=== PATIENT | male | born 1935 | race Caucasian/White ===

== ENCOUNTER 2018-04-15 19:37 | Inpatient (IN) | payer OTHER ==
[~2018-04-15] VITALS: Ht 172.7 cm; Wt 79.2 kg
[~2018-04-15 19:37] MED LIST: ASPI-232 PO; ATOR-24 PO; CALC1CRE2 EX; CLBCRM30 EXT; DOXA4TAB2 PO; FINA5TAB PO; FLUO10CA48 PO; FLUT110A INH; LOSA100T33 PO; MULT-221 PO; PLN/10 PO; RANI150T85 PO; SYN137 PO; [UNRECOGNIZED DRUG - CODE] EX
[2018-04-15] MEDS ORDERED: OPTIRAY 320 IV PRN (20:00)
[2018-04-15] MEDS ORDERED: ASPI325T39 PO (20:06)
[2018-04-15] MEDS ORDERED: HYZ/10015 PO (20:06)
[2018-04-15] MEDS ORDERED: FLVHFA110 INH (20:06)
[2018-04-15] MEDS ORDERED: METO25TA4 PO (20:06)
[2018-04-15] MEDS ORDERED: SODIUM CHLORIDE 0.9% 500ML 500 ML IV STA (20:09)
--- NOTE | 2018-04-15 20:10 | EMERGENCY ROOM VISIT NOTE ---
History Report prepared by Alexey: Kurt Brown Under the Supervision of: Dr. Esvin Ny D.O. First contact with patient: 19:46 Chief Complaint: CHEST PAIN Stated Complaint: CHEST PAIN AND SPITTING UP BLOOD History of Present Illness The patient is a 82 year old male who presents to the Emergency Room with complaints of constant chest pain radiating to the right abdomen and back. The patient rates his current symptoms as 7/10 in severity. He also states that he has been spitting up blood. The patient reports that the pain is worsened with deep breaths. He denies nausea, vomiting, or pain and swelling of the legs. He states that he has some chills. The patient reports a previous pulmonary embolism. He states that he had surgery for appendicitis and still has his gallbladder. He denies being on blood thinners aside from aspirin. Source of History: patient Position: chest Symptom Intensity: 7/10 Timing: constant Modifying Factors (Worsening): breathing Associated Symptoms: + chills, No nausea, No vomiting Note: denies pain or swelling in legs Review of Systems See HPI for pertinent positives & negatives. A total of 10 systems reviewed and were otherwise negative. 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 (8) Pulmonary embolism (9) Toxic diffuse goiter Surgical Problems: (1) History of ankle surgery (2) History of appendectomy Family History Cancer Heart disease Hypertension Social History Smoking Status: Never Smoker Current/Historical Medications Scheduled Aspirin (Aspirin Ec), 325 MG PO QPM Atorvastatin (Lipitor), 40 MG PO DAILY Doxazosin Mesylate (Cardura), 4 MG PO QPM Felodipine (Felodipine ER), 1 TAB PO DAILY Finasteride (Proscar), 5 MG PO QPM Fluoxetine (Prozac), 10 MG PO DAILY Fluticasone Propionate (Flovent Hfa), 2 PUFFS INH BID Hctz/Losartan (Hyzaar 25MG/100MG), 1 TAB PO DAILY Levothyroxine Sodium (Levothyroxine Sodium), 1 TAB PO DAILY Metoprolol Succinate (Toprol Xl), 25 MG PO QPM Ranitidine (Zantac), 150 MG PO QPM Allergies Coded Allergies: SIDNEY Inhibitors (Verified Allergy, Unknown, COUGH, 02/20/15) Physical Exam Vital Signs Date Time Temp Pulse Resp B/P (MAP) Pulse Ox O2 Delivery O2 Flow Rate FiO2 04/15/18 22:01 111/68 04/15/18 21:36 99 04/15/18 21:31 136/69 04/15/18 21:29 Nasal Cannula 3.0 04/15/18 21:06 88 25 93 04/15/18 21:01 89 Room Air 04/15/18 21:01 87 24 144/81 93 Nasal Cannula 2.0 04/15/18 21:01 Nasal Cannula 2.0 04/15/18 20:52 88 25 90 04/15/18 20:37 90 22 92 04/15/18 20:31 147/68 04/15/18 20:07 86 27 92 04/15/18 20:01 132/64 04/15/18 19:54 99 04/15/18 19:52 99 23 92 04/15/18 19:50 140/66 04/15/18 19:42 36.9 87 20 151/56 93 Room Air Physical Exam GENERAL: Patient is awake, alert, and in no acute distress. Patient is resting comfortably and showing no signs of anxiety EYES: The conjunctivae are clear. The pupils are round and reactive. EARS, NOSE, MOUTH AND THROAT: The nose is without any evidence of any deformity. Mucous membranes are moist. Tongue is midline NECK: The neck is nontender and supple. RESPIRATORY: Splinting respirations noted. Lung sounds diminished in the right lung field. CARDIOVASCULAR: Regular rate and rhythm noted. There no murmurs rubs or gallops normal S1 normal S2 GASTROINTESTINAL: The abdomen is soft. Bowel sounds are present in all quadrants. Abdomen is nontender. MUSCULOSKELETAL/EXTREMITIES: There is no evidence of gross deformity. Full range of motion is noted in the hips and shoulders. SKIN: There is no obvious evidence of any rash. There are no petechiae, pallor or cyanosis noted. NEUROLOGIC: Patient is awake alert and oriented x3. Medical Decision & Procedures ER Provider Diagnostic Interpretation: Radiology results as stated below per my review and radiologist interpretation: (CHEST FOR PE) ANGIO WITH CT DOSE: 412.38 mGy.cm HISTORY: Chest pain dyspnea TECHNIQUE: Multiaxial CT images of the chest were performed following the intravenous administration of contrast to evaluate the pulmonary arteries. Maximal intensity projection images were also obtained. A dose lowering technique was utilized adhering to the principles of ALARA. COMPARISON STUDY: None. FINDINGS: Limited is a technically due to respiratory and somatic motion. No evidence for major central or first order embolus. There are vessels. The lung bases are not well seen. Mild atelectatic change thoracic aorta. Bibasilar parenchymal infiltrative change. Small right effusion. IMPRESSION: 1. Technically limited exam due to patient somatic and respiratory motion. 2. No evidence for a major central or first order embolus. 3. Nondiagnostic evaluation of the third order vessels of the lung bases. 4. Bibasilar infiltrative change combined with a small right effusion. The above report was generated using voice recognition software. It may contain grammatical, syntax or spelling errors. Electronically signed by: Kaden Florian M.D. 04/15/2018 8:25 PM Dictated Date/Time: 04/15/2018 8:22 PM Laboratory Results 04/15/18 19:55 Red Blood Count 3.93, Mean Corpuscular Volume 89.6, Mean Corpuscular Hemoglobin 30.0, Mean Corpuscular Hemoglobin Concent 33.5, Mean Platelet Volume 10.4, Neutrophils (%) (Auto) 70.7, Lymphocytes (%) (Auto) 13.0, Monocytes (%) (Auto) 12.7, Eosinophils (%) (Auto) 2.8, Basophils (%) (Auto) 0.2, Neutrophils # (Auto ) 7.17, Lymphocytes # (Auto) 1.32, Monocytes # (Auto) 1.29, Eosinophils # (Auto ) 0.28, Basophils # (Auto) 0.02 04/15/18 19:55 Test 04/15/18 19:55 04/15/18 20:06 04/15/18 21:39 White Blood Count 10.14 K/uL (4.8-10.8) Red Blood Count 3.93 M/uL (4.7-6.1) Hemoglobin 11.8 g/dL (14.0-18.0) Hematocrit 35.2 % (42-52) Mean Corpuscular Volume 89.6 fL (80-100) Mean Corpuscular Hemoglobin 30.0 pg (25-34) Mean Corpuscular Hemoglobin Concent 33.5 g/dl (32-36) Platelet Count 157 K/uL (130-400) Mean Platelet Volume 10.4 fL (7.4-10.4) Neutrophils (%) (Auto) 70.7 % Lymphocytes (%) (Auto) 13.0 % Monocytes (%) (Auto) 12.7 % Eosinophils (%) (Auto) 2.8 % Basophils (%) (Auto) 0.2 % Neutrophils # (Auto) 7.17 K/uL (1.4-6.5) Lymphocytes # (Auto) 1.32 K/uL (1.2-3.4) Monocytes # (Auto) 1.29 K/uL (0.11-0.59) Eosinophils # (Auto) 0.28 K/uL (0-0.5) Basophils # (Auto) 0.02 K/uL (0-0.2) RDW Standard Deviation 43.1 fL (36.4-46.3) RDW Coefficient of Variation 13.1 % (11.5-14.5) Immature Granulocyte % (Auto) 0.6 % Immature Granulocyte # (Auto) 0.06 K/uL (0.00-0.02) Prothrombin Time 10.7 SECONDS (9.0-12.0) Prothromb Time International Ratio 1.0 (0.9-1.1) Activated Partial Thromboplast Time 28.6 SECONDS (21.0-31.0) Partial Thromboplastin Ratio 1.1 Est Creatinine Clear Calc Drug Dose 26.1 ml/min Estimated GFR () 32.8 Estimated GFR (Non- 28.3 BUN/Creatinine Ratio 23.2 (10-20) Calcium Level 8.2 mg/dl (8.5-10.1) Magnesium Level 2.0 mg/dl (1.8-2.4) Total Bilirubin 0.6 mg/dl (0.2-1) Aspartate Amino Transf (AST/SGOT) 26 U/L (15-37) Alanine Aminotransferase (ALT/SGPT) 17 U/L (12-78) Alkaline Phosphatase 84 U/L (45-117) Troponin I < 0.015 ng/ml (0-0.045) Total Protein 8.2 gm/dl (6.4-8.2) Albumin 3.1 gm/dl (3.4-5.0) Globulin 5.1 gm/dl (2.5-4.0) Albumin/Globulin Ratio 0.6 (0.9-2) Lipase 319 U/L (73-393) Bedside Hemoglobin 11.2 g/dl (14.0-18.0) Bedside Hematocrit 33 % (42-52) Bedside Sodium 139 mEq/L (135-144) Bedside Potassium 3.9 mEq/L (3.3-5.0) Bedside Chloride 105 mEq/L (101-112) Bedside Total CO2 21 mEq/l (24-31) Anion Gap 18.0 mmol/L (16-25) Bedside Blood Urea Nitrogen 41 mg/dl (7-18) Bedside Creatinine 2.2 mg/dl (0.6-1.3) Bedside Glucose (other) 110 mg/dl (70-99) Bedside Ionized Calcium (Aaron) 1.11 mmol/l (1.12-1.32) Venous Blood pH 7.36 (7.36-7.41) Venous Blood Partial Pressure CO2 33 mmHg (38.0-50.0) Venous Blood Partial Pressure O2 47 mmHg Venous Blood HCO3 18 mmol/L Venous Blood Oxygen Saturation 80.0 % Venous Blood Base Excess -6.3 mEq/L Laboratory results per my review. Medications Administered Medications (Trade) Dose Ordered Sig/Fatou Route Start Time Stop Time Status Last Admin Dose Admin Sodium Chloride 500 ml @ 999 mls/hr Q31M STAT IV 04/15/18 20:09 04/15/18 20:39 DC 04/15/18 20:09 999 MLS/HR Sodium Chloride 1,000 ml @ 999 mls/hr Q1H1M STAT IV 04/15/18 20:41 04/15/18 21:41 DC 04/15/18 21:03 999 MLS/HR Morphine Sulfate (MoRPHine SULFATE INJ) 4 mg Q15M PRN IV 04/15/18 21:30 04/15/18 21:46 DC 04/15/18 21:22 4 MG Ondansetron HCl (Zofran Inj) 4 mg NOW STAT IV 04/15/18 21:16 04/15/18 21:17 DC 04/15/18 21:24 4 MG Piperacillin Sod/ Tazobactam Sod (Zosyn Iv) 4.5 gm NOW STAT IV 04/15/18 21:16 04/15/18 21:17 DC 04/15/18 21:27 4.5 GM Hydromorphone HCl (Dilaudid Inj) 0.5 mg Q3H PRN IV 04/15/18 21:45 04/29/18 21:44 04/15/18 23:44 0.5 MG Methylprednisolone Sodium Succinate (Solu-Medrol IV) 40 mg ONE STAT IV 04/15/18 21:46 04/15/18 21:47 DC 04/15/18 21:53 40 MG Lidocaine (Lidoderm Patch 5%) 1 patch ONE STAT TD 04/15/18 22:00 04/15/18 22:01 DC 04/15/18 22:39 1 PATCH Morphine Sulfate (MoRPHine SULFATE INJ) 4 mg STK-MED ONCE .ROUTE 04/15/18 21:50 04/15/18 21:51 DC 04/15/18 21:53 4 MG Ipratropium Prospect (Atrovent 0.02% 0.5MG/2.5ML Neb) 0.5 mg NOW STAT INH 04/15/18 22:00 04/15/18 22:01 DC 04/15/18 22:10 0.5 MG Levalbuterol (Xopenex 1.25MG/ 0.5ML Neb) 1.25 mg NOW STAT INH 04/15/18 22:00 04/15/18 22:01 DC 04/15/18 22:10 1.25 MG ECG Per My Interpretation Indication: chest pain Rate (beats per minute): 104 Rhythm: sinus tachycardia Findings: PVC, ST depression (Anterior and lateral) Comparison ECG Date: 08/07/2005 Change: increased rate, otherwise no change ED Course 1950: The patient was evaluated in room C10. A complete history and physical examination were performed. 2008: Ordered Sodium Chloride 500 ml @ 999 mls/hr IV 2040: Ordered Sodium Chloride 1000 ml @ 999 mls/hr IV 2114: I updated with the patient on his test results. 2115: Ordered Zosyn 4.5 gm IV, Zofran 4 mg IV 2129: Ordered Morphine Sulfate 4 mg IV 2130: I spoke with Dr. Binu Ventura Hospitalist. He will reevaluate the patient for hospitalization. Medical Decision Differential diagnosis: Etiologies such as cardiac ischemia, aortic dissection, pulmonary embolism, pneumonia, pneumothorax, musculoskeletal, infections, pericarditis, myocarditis , esophageal rupture, gastrointestinal, as well as others were entertained. Nursing notes reviewed. The patient is an 82-year-old male who presented to the emergency department for an evaluation of right chest wall pain. The the pain appeared to be significant and was pleuritic in nature. The patient was concerned because he has a history of pulmonary embolism in the past. For this reason CT the chest was obtained. The patient appears to have bilateral pneumonia as well as a pleural effusion on the right. At this time I would be concerned that this may be the cause of the patient's pain especially the pleural effusion may require further workup. The patient was treated with IV fluids IV pain medicine as well as IV antibiotics. The patient's oxygen saturation had dropped but he was placed on supplemental oxygen with significant improvement. I discussed patient 's laboratory and radiographic studies with him and his family members. I also discussed his case with the on-call [facility] hospitalist. They have agreed to evaluate patient in the emergency department for further management and disposition. Medication Reconcilliation Current Medication List: was personally reviewed by me Blood Pressure Screening Patient's blood pressure: Elevated blood pressure referred to hospitalist Consults Time Called: 2128 Consulting Physician: Dr. Binu Quintero Returned Call: [address] Binu Quintero. He will reevaluate the patient for hospitalization. Impression Primary Impression: Bilateral pneumonia Additional Impressions: Pleuritic chest pain Acute kidney injury Hypoxia Scribe Attestation The scribe's documentation has been prepared under my direction and personally reviewed by me in its entirety. I confirm that the note above accurately reflects all work, treatment, procedures, and medical decision making performed by me. Departure Information Dispostion Being Evaluated By Hospitalist Referrals Denise Joseph M.D. (PCP) Patient Instructions My [facility] Problem Qualifiers Primary Impression: Bilateral pneumonia Pneumonia type: due to unspecified organism Lung location: lower lobe of lung Qualified Codes: J18.1 - Lobar pneumonia, unspecified organism
[2018-04-15 20:15] LABS: ISTAT CREATININE 2.2 mg/dl (0.6-1.3); ISTAT IONIZED CALCIUM 1.11 mmol/l (1.12-1.32); ISTAT POTASSIUM 3.9 mEq/L (3.3-5.0)
--- NOTE | 2018-04-15 20:27 | DIAGNOSTIC IMAGING REPORT ---
(CHEST FOR PE) ANGIO WITH CT DOSE: 412.38 mGy.cm HISTORY: Chest pain dyspnea TECHNIQUE: Multiaxial CT images of the chest were performed following the intravenous administration of contrast to evaluate the pulmonary arteries. Maximal intensity projection images were also obtained. A dose lowering technique was utilized adhering to the principles of ALARA. COMPARISON STUDY: None. FINDINGS: Limited is a technically due to respiratory and somatic motion. No evidence for major central or first order embolus. There are vessels. The lung bases are not well seen. Mild atelectatic change thoracic aorta. Bibasilar parenchymal infiltrative change. Small right effusion. IMPRESSION: 1. Technically limited exam due to patient somatic and respiratory motion. 2. No evidence for a major central or first order embolus. 3. Nondiagnostic evaluation of the third order vessels of the lung bases. 4. Bibasilar infiltrative change combined with a small right effusion. The above report was generated using voice recognition software. It may contain grammatical, syntax or spelling errors. Electronically signed by: Kaden Florian M.D. 04/15/2018 8:25 PM Dictated Date/Time: 04/15/2018 8:22 PM
[2018-04-15 20:36] LABS: BASO % 0.2 %; BASO ABS # 0.02 K/uL (0-0.2); EOS % 2.8 %; EOS ABS # 0.28 K/uL (0-0.5); HEMATOCRIT 35.2 % (42-52); HEMOGLOBIN 11.8 g/dL (14.0-18.0); IG# 0.06 K/uL (0.00-0.02); LYMPH ABS # 1.32 K/uL (1.2-3.4); MEAN CELL VOLUME 89.6 fL (80-100); MEAN CORPUSCULAR HGB CONC 33.5 g/dl (32-36); MEAN PLATELET VOLUME 10.4 fL (7.4-10.4); MONO % 12.7 %; MONO ABS # 1.29 K/uL (0.11-0.59); NEUT % 70.7 %; NEUT ABS # 7.17 K/uL (1.4-6.5); PLATELET COUNT 157 K/uL (130-400); RED CELL DISTRIBUTION WIDTH CV 13.1 % (11.5-14.5); RED CELL DISTRIBUTION WIDTH SD 43.1 fL (36.4-46.3); WHITE BLOOD COUNT 10.14 K/uL (4.8-10.8)
[2018-04-15] MEDS ORDERED: SODIUM CHLORIDE 0.9% 1000ML 1,000 ML IV STA (20:41)
[2018-04-15 20:47] LABS: PTT PATIENT 28.6 SECONDS (21.0-31.0)
[2018-04-15 21:00] LABS: ALBUMIN 3.1 gm/dl (3.4-5.0); ALKALINE PHOSPHATASE 84 U/L (45-117); ALT/SGPT 17 U/L (12-78); AST/SGOT 26 U/L (15-37); BLOOD UREA NITROGEN 49 mg/dl (7-18); CALCIUM 8.2 mg/dl (8.5-10.1); CARBON DIOXIDE 20 mmol/L (21-32); CREATININE 2.11 mg/dl (0.60-1.40); GLUCOSE 101 mg/dl (70-99); POTASSIUM 3.8 mmol/L (3.5-5.1); SODIUM 136 mmol/L (136-145); TOTAL PROTEIN 8.2 gm/dl (6.4-8.2)
[2018-04-15] MEDS ORDERED: PIPERACILLIN/TAZOBACTAM 4.5 GM/100ML D5W IV STA (21:16)
[2018-04-15] MEDS ORDERED: ONDANSETRON INJ 2 MG/ML 2 ML VIAL IV STA (21:16)
[2018-04-15] MEDS ORDERED: MoRPHine SULFATE 4 MG/ML 1 ML CARP\\VIAL IV PRN (21:30)
[2018-04-15] MEDS ORDERED: HYDROmorphone INJ 0.5 MG/0.5 ML SYR IV PRN (21:45)
[2018-04-15] MEDS ORDERED: METHYLPREDNISOLONE IV 40 MG in SYRINGE 0 ML IV ONE (21:45)
[2018-04-15] MEDS ORDERED: PROCHLORPERAZINE INJ 5 MG in SYRINGE 4 ML IV PRN (21:45)
[2018-04-15] MEDS ORDERED: LEVALBUTEROL/IPRATROPIUM NEB INH STA (21:46)
[2018-04-15] MEDS ORDERED: MoRPHine SULFATE 4 MG/ML 1 ML CARP\\VIAL ONE (21:50)
[2018-04-15] MEDS ORDERED: LEVALBUTEROL/IPRATROPIUM NEB INH PRN (22:00)
[2018-04-15] MEDS ORDERED: LEVALBUTEROL 1.25MG/0.5ML NEB INH STA (22:00)
[2018-04-15] MEDS ORDERED: LIDODERM (LIDOCAINE) PATCH 5% TD STA (22:00)
[2018-04-15] MEDS ORDERED: IPRATROPIUM BROMIDE NEB SOLN 0.02% 2.5 ML VIAL INH STA (22:00)
[2018-04-15] MEDS ORDERED: TRAMADOL HCL 50 MG TAB PO PRN (22:00)
[2018-04-15 22:12] VITALS: PULSE 94; O2SAT 92
--- NOTE | 2018-04-15 22:14 | History and Physical ---
History & Physical Date & Time of Service: Apr 15, 2018 ~ 2144 Chief Complaint: Shortness of breath, coughing up blood Primary Care Physician: Denise Joseph M.D. History of Present Illness 82-year-old male who presents the ED with shortness of breath and coughing up blood. Patient reports his symptoms began 4 days ago. He reports increasing exertional shortness of breath. He reports a cough productive for mostly andujar sputum however occasionally did have some bright red blood. He reports a right- sided rib pain that is worse with a deep breath. He denies fevers and chills. No chest pain. He denies lightheadedness, dizziness, diaphoresis, syncopal events. No abdominal pain, nausea, vomiting, diarrhea. He denies any urinary symptoms. In the ED, CTA chest is negative for pulmonary embolism however is showing a bibasilar infiltrates. Patient was hypoxic on room air at 89% which improved with oxygen 3 L via nasal cannula. Labs show a mild THERESA with creatinine of 2.1 (baseline in the mid ones). Patient was given IVF, IV Zosyn, IV Zofran, IV morphine. 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 Status: Chronic (7) Psoriatic arthropathy Status: Chronic (8) Pulmonary embolism Permanent Comment: In 2004, completed 6 months of Coumadin therapy Status: Chronic (9) Toxic diffuse goiter Status: Chronic Surgical Problems: (1) History of ankle surgery Permanent Comment: Bilateral Status: Chronic (2) History of appendectomy Status: Chronic Family History Noncontributory secondary to patient's advanced age Social History Smoking Status: Never Smoker Drug Use: none Immunizations History of Influenza Vaccine: Yes Influenza Vaccine Date: May 29, 2017 History of Tetanus Vaccine?: Yes Tetanus Immunization Date: Dec 05, 2011 History of Pneumococcal: Yes Pneumococcal Date: January 27, 2015 Allergies Coded Allergies: SIDNEY Inhibitors (Verified Allergy, Unknown, COUGH, 02/20/15) Home Medications Scheduled Aspirin (Aspirin Ec), 325 MG PO QPM Atorvastatin (Lipitor), 40 MG PO DAILY Doxazosin Mesylate (Cardura), 4 MG PO QPM Felodipine (Felodipine ER), 1 TAB PO DAILY Finasteride (Proscar), 5 MG PO QPM Fluoxetine (Prozac), 10 MG PO DAILY Fluticasone Propionate (Flovent Hfa), 2 PUFFS INH BID Hctz/Losartan (Hyzaar 25MG/100MG), 1 TAB PO DAILY Levothyroxine Sodium (Levothyroxine Sodium), 1 TAB PO DAILY Metoprolol Succinate (Toprol Xl), 25 MG PO QPM Ranitidine (Zantac), 150 MG PO QPM Review of Systems ROS per HPI, all other systems reviewed and negative Physical Exam Vital Signs Date Time Temp Pulse Resp B/P (MAP) Pulse Ox O2 Delivery O2 Flow Rate FiO2 04/15/18 21:29 Nasal Cannula 3.0 04/15/18 21:01 89 Room Air 04/15/18 21:01 87 24 144/81 93 Nasal Cannula 2.0 04/15/18 21:01 Nasal Cannula 2.0 04/15/18 20:52 88 25 90 04/15/18 20:37 90 22 92 04/15/18 20:31 147/68 04/15/18 20:07 86 27 92 04/15/18 20:01 132/64 04/15/18 19:54 99 04/15/18 19:52 99 23 92 04/15/18 19:50 140/66 04/15/18 19:42 36.9 87 20 151/56 93 Room Air General Appearance: WD/WN, + mild distress Head: normocephalic, atraumatic Eyes: normal inspection, EOMI, sclerae normal ENT: hearing grossly normal, + pertinent finding (Mucous members moist) Neck: supple, no JVD, trachea midline Respiratory/Chest: + decreased breath sounds (Poor air entry noted bilaterally) , + pertinent finding (Tachypnea noted) Cardiovascular: regular rate, rhythm, no edema, normal peripheral pulses Abdomen/GI: normal bowel sounds, non tender, soft, no organomegaly Extremities/Musculoskelatal: normal inspection, no calf tenderness, normal capillary refill Neurologic/Psych: no motor/sensory deficits, alert, normal mood/affect, oriented x 3 Skin: normal color, warm/dry, + pertinent finding (Chronic changes in psoriasis noted to bilateral lower extremities) Diagnostics Laboratory Results Results Past 24 Hours Test 04/15/18 19:55 04/15/18 20:06 04/15/18 21:39 Range/Units White Blood Count 10.14 4.8-10.8 K/uL Red Blood Count 3.93 4.7-6.1 M/uL Hemoglobin 11.8 14.0-18.0 g/dL Hematocrit 35.2 42-52 % Mean Corpuscular Volume 89.6 80-100 fL Mean Corpuscular Hemoglobin 30.0 25-34 pg Mean Corpuscular Hemoglobin Concent 33.5 32-36 g/dl Platelet Count 157 130-400 K/uL Mean Platelet Volume 10.4 7.4-10.4 fL Neutrophils (%) (Auto) 70.7 % Lymphocytes (%) (Auto) 13.0 % Monocytes (%) (Auto) 12.7 % Eosinophils (%) (Auto) 2.8 % Basophils (%) (Auto) 0.2 % Neutrophils # (Auto) 7.17 1.4-6.5 K/uL Lymphocytes # (Auto) 1.32 1.2-3.4 K/uL Monocytes # (Auto) 1.29 0.11-0.59 K/uL Eosinophils # (Auto) 0.28 0-0.5 K/uL Basophils # (Auto) 0.02 0-0.2 K/uL RDW Standard Deviation 43.1 36.4-46.3 fL RDW Coefficient of Variation 13.1 11.5-14.5 % Immature Granulocyte % (Auto) 0.6 % Immature Granulocyte # (Auto) 0.06 0.00-0.02 K/uL Prothrombin Time 10.7 9.0-12.0 SECONDS Prothromb Time International Ratio 1.0 0.9-1.1 Activated Partial Thromboplast Time 28.6 21.0-31.0 SECONDS Partial Thromboplastin Ratio 1.1 Sodium Level 136 136-145 mmol/L Potassium Level 3.8 3.5-5.1 mmol/L Chloride Level 105 98-107 mmol/L Carbon Dioxide Level 20 21-32 mmol/L Anion Gap 12.0 18.0 16-25 mmol/L Blood Urea Nitrogen 49 7-18 mg/dl Creatinine 2.11 0.60-1.40 mg/dl Est Creatinine Clear Calc Drug Dose 26.1 ml/min Estimated GFR () 32.8 Estimated GFR (Non- 28.3 BUN/Creatinine Ratio 23.2 10-20 Random Glucose 101 70-99 mg/dl Calcium Level 8.2 8.5-10.1 mg/dl Magnesium Level 2.0 1.8-2.4 mg/dl Total Bilirubin 0.6 0.2-1 mg/dl Aspartate Amino Transf (AST/SGOT) 26 15-37 U/L Alanine Aminotransferase (ALT/SGPT) 17 12-78 U/L Alkaline Phosphatase 84 45-117 U/L Troponin I < 0.015 0-0.045 ng/ml Total Protein 8.2 6.4-8.2 gm/dl Albumin 3.1 3.4-5.0 gm/dl Globulin 5.1 2.5-4.0 gm/dl Albumin/Globulin Ratio 0.6 0.9-2 Lipase 319 73-393 U/L Bedside Hemoglobin 11.2 14.0-18.0 g/dl Bedside Hematocrit 33 42-52 % Bedside Sodium 139 135-144 mEq/L Bedside Potassium 3.9 3.3-5.0 mEq/L Bedside Chloride 105 101-112 mEq/L Bedside Total CO2 21 24-31 mEq/l Bedside Blood Urea Nitrogen 41 7-18 mg/dl Bedside Creatinine 2.2 0.6-1.3 mg/dl Bedside Glucose (other) 110 70-99 mg/dl Bedside Ionized Calcium (Aaron) 1.11 1.12-1.32 mmol/l Venous Blood pH 7.36 7.36-7.41 Venous Blood Partial Pressure CO2 33 38.0-50.0 mmHg Venous Blood Partial Pressure O2 47 mmHg Venous Blood HCO3 18 mmol/L Venous Blood Oxygen Saturation 80.0 % Venous Blood Base Excess -6.3 mEq/L Microbiology Results 04/15/18 Blood Culture, Received Pending 04/15/18 Blood Culture, Received Pending Diagnostic Radiology CTA CHEST IMPRESSION: 1. Technically limited exam due to patient somatic and respiratory motion. 2. No evidence for a major central or first order embolus. 3. Nondiagnostic evaluation of the third order vessels of the lung bases. 4. Bibasilar infiltrative change combined with a small right effusion. Impression Assessment and Plan Please see Dr. Schmid's addendum for assessment and plan. Resuscitation Status VTE Prophylaxis Will order VTE Prophylaxis: Yes Assessment/Plan IM ATTENDING : Patient seen and examined. History obtained from patient, family and records. Preceding documentation by IBIS Rodriguez, reviewed. FINAL ASSESSMENT AND PLAN as follows: 1. Acute hypoxemic respiratory failure secondary to chronic obstructive pulmonary disease exacerbation secondary to community acquired complicated pneumonia/complicated pneumonia w/ note of effusion. No sepsis. 2. Hemoptysis secondary to above. Hemoglobin stable at baseline hemoglobin of 11 (hx chronic anemia) 3. Hypertension, stable. 4. Acute renal failure secondary to illness. 5. History of pulmonary embolism status post Coumadin Rx. GMF supplemental O2. Ceftriaxone, Doxycycline nebs, steroids. Pulmonary consult RE hemoptysis, respiratory failure, complicated pneumonia Antitussives trend H&H ,hold home ASA for now until hemoglobin stable Baseline UA, monitor creatinine response to IVF Hold home diuretic/ARB ntil creatinine at baseline. Deep venous thrombosis, SCDS RE hemoptysis. Full code.
[2018-04-15] MEDS ORDERED: IPRATROPIUM BROMIDE NEB SOLN 0.02% 2.5 ML VIAL INH PRN (22:15)
[2018-04-15] MEDS ORDERED: LEVALBUTEROL 1.25MG/0.5ML NEB INH PRN (22:15)
[2018-04-15] MEDS ORDERED: ACETAMINOPHEN 325 MG TAB PO PRN (23:00)
[2018-04-15] MEDS ORDERED: BENZONATATE 100MG CAP PO PRN (23:00)
[2018-04-15 23:30] VITALS: BP 119/65; PULSE 100; TEMP 36.6; O2SAT 92; Ht 172.7 cm; Wt 79.2 kg
[2018-04-15] MEDS ORDERED: SODIUM CHLORIDE 0.9% 1000ML 1,000 ML IV ONE (23:30)
[2018-04-15] MEDS ORDERED: DOXYCYCLINE IV 100 MG in DEXTROSE 5% 100ML 100 ML IV ONE (23:45)
[2018-04-16] VITALS (9 sets, daily range): BP systolic 111–138; BP diastolic 50–72; PULSE 73–95; TEMP 36.6–37.2; O2SAT 92–95
[2018-04-16 00:32] LABS: HEMATOCRIT 32.4 % (42-52)
--- NOTE | 2018-04-16 00:39 | HISTORY & PHYSICAL EXAMINATION ---
DATE OF ADMISSION: 04/15/2018 IM ATTENDING : Patient seen and examined. History obtained from patient, family and records. Preceding documentation by IBIS Rodriguez, reviewed. FINAL ASSESSMENT AND PLAN as follows: 1. Acute hypoxemic respiratory failure secondary to chronic obstructive pulmonary disease exacerbation secondary to community acquired complicated pneumonia/complicated pneumonia w/ note of effusion. No sepsis. 2. Hemoptysis secondary to above. Hemoglobin stable at baseline hemoglobin of 11 (hx chronic anemia) 3. Hypertension, stable. 4. Acute renal failure secondary to illness. 5. History of pulmonary embolism status post Coumadin Rx. GMF supplemental O2. Ceftriaxone, Doxycycline nebs, steroids. Pulmonary consult RE hemoptysis, respiratory failure, complicated pneumonia Antitussives trend H&H ,hold home ASA for now until hemoglobin stable Baseline UA, monitor creatinine response to IVF Hold home diuretic/ARB ntil creatinine at baseline. Deep venous thrombosis, SCDS RE hemoptysis. Full code. MTDD
[2018-04-16] MEDS: LEVALBUTEROL 1.25MG/0.5ML NEB INH SCH ×4 (01:50→19:23)
[2018-04-16] MEDS: IPRATROPIUM BROMIDE NEB SOLN 0.02% 2.5 ML VIAL INH SCH ×4 (01:50→19:23)
[2018-04-16] MEDS ORDERED: LEVALBUTEROL/IPRATROPIUM NEB INH SCH (03:00)
[2018-04-16] MEDS: LEVOTHYROXINE 137 MCG TAB PO SCH (05:59)
[2018-04-16 06:57] LABS: BASO % 0.1 %; BASO ABS # 0.01 K/uL (0-0.2); HEMATOCRIT 32.3 % (42-52); HEMOGLOBIN 10.9 g/dL (14.0-18.0); IG# 0.04 K/uL (0.00-0.02); LYMPH % 4.6 %; MEAN CELL VOLUME 89.7 fL (80-100); MEAN CORPUSCULAR HEMOGLOBIN 30.3 pg (25-34); MEAN CORPUSCULAR HGB CONC 33.7 g/dl (32-36); MEAN PLATELET VOLUME 10.1 fL (7.4-10.4); MONO % 2.1 %; MONO ABS # 0.18 K/uL (0.11-0.59); NEUT % 92.7 %; NEUT ABS # 8.01 K/uL (1.4-6.5); PLATELET COUNT 146 K/uL (130-400); RED CELL DISTRIBUTION WIDTH CV 13.1 % (11.5-14.5); RED CELL DISTRIBUTION WIDTH SD 43.1 fL (36.4-46.3); WHITE BLOOD COUNT 8.64 K/uL (4.8-10.8)
[2018-04-16 07:27] LABS: CALCIUM 7.8 mg/dl (8.5-10.1); CREATININE 2.04 mg/dl (0.60-1.40); POTASSIUM 3.9 mmol/L (3.5-5.1)
--- NOTE | 2018-04-16 07:30 | DIAGNOSTIC IMAGING REPORT ---
ABDOMEN AND PELVIS CT WITHOUT CONTRAST CT DOSE: 594.13 mGy.cm HISTORY: Right-sided abdominal pain. TECHNIQUE: Multiaxial CT images of the abdomen and pelvis were performed without contrast. A dose lowering technique was utilized adhering to the principles of ALARA. COMPARISON STUDY: None. FINDINGS: Bibasilar consolidation. No pneumoperitoneum. No pneumatosis. There is a right total hip arthroplasty. No suspicious lytic or blastic osseous lesions. Small hiatus hernia. The distal esophagus is mildly distended and fluid-filled. There is motion artifact. The liver and spleen demonstrate punctate calcified granulomas. There is a 2.4 cm hypodense lesion within the right hepatic lobe. This likely represents a cyst. The unenhanced gallbladder, pancreas, and adrenal glands are unremarkable. There is contrast within the urinary system due to the recent chest CTA. No hydronephrosis. The 6 cm left parapelvic renal cyst. No retroperitoneal lymphadenopathy. The prostate gland is mildly enlarged. No bladder wall thickening. Suboptimal evaluation for bowel pathology due to the lack of intravenous and oral contrast. However, no definite bowel wall thickening or obstruction. The appendix is reportedly surgically absent. Small fat-containing right inguinal hernia. IMPRESSION: 1. Bibasilar airspace opacities. This may represent atelectasis or pneumonia. 2. Small hiatus hernia. Mildly distended and fluid-filled distal esophagus. 3. No bowel wall thickening or obstruction. 4. Additional findings as described above. Electronically signed by: Skyler Taylor M.D. 04/16/2018 7:29 AM Dictated Date/Time: 04/16/2018 7:22 AM
[2018-04-16] MEDS: METOPROLOL SUCC 25MG EXT REL TAB PO SCH (07:44)
[2018-04-16] MEDS: ATORVASTATIN 40 MG TAB PO SCH (07:45)
[2018-04-16] MEDS: FELODIPINE 5 MG TABCR PO SCH (07:46)
[2018-04-16] MEDS: FLUOXETINE HCL 10 MG CAP PO SCH (07:46)
[2018-04-16] MEDS: CEFTRIAXONE SOD INJ 1 GM in DEXTROSE 5% ADD-VANTAGE 50ML 50 ML IV SCH (07:48)
[2018-04-16] MEDS: DOXYCYCLINE IV 100 MG in DEXTROSE 5% 100ML 100 ML IV SCH ×2 (11:11→22:27)
--- NOTE | 2018-04-16 12:56 | Progress Note ---
Medicine Progress Note Date & Time of Visit: Apr 16, 2018 at 12:29. Subjective Pt was seen and examined Lying in bed with no distress Pt said that he feels slightly better His coughing less and does not have the chest tenderness when coughing Denies any chest pain, palpitation, dizziness and fever Objective Last 8 Hrs Date Time Temp Pulse Resp B/P (MAP) Pulse Ox O2 Delivery O2 Flow Rate FiO2 04/16/18 11:28 36.9 73 20 111/50 (70) 92 Room Air 04/16/18 08:00 Nasal Cannula 5.0 04/16/18 07:21 36.9 90 22 125/69 (87) 92 Nasal Cannula 4.0 04/16/18 07:01 90 18 92 Nasal Cannula 4.0 04/16/18 04:39 37.2 76 16 135/72 (93) 92 Room Air Physical Exam: General- No acute distress Head- atraumatic Eyes- PERRL, EOMI ENT- Oropharynx clear Neck- supple, no JVD Lungs- decrease breath sound Heart- regular rhythm Abdomen- normal bowel sounds, soft Extremities- no calf tenderness Neuro- alert, oriented x 3; PERRL, EOMI; no facial palsy Skin- warm & dry Laboratory Results: Last 24 Hours Test 04/15/18 19:55 04/15/18 20:06 04/15/18 21:39 04/16/18 00:17 White Blood Count 10.14 K/uL Red Blood Count 3.93 M/uL Hemoglobin 11.8 g/dL 11.0 g/dL Hematocrit 35.2 % 32.4 % Mean Corpuscular Volume 89.6 fL Mean Corpuscular Hemoglobin 30.0 pg Mean Corpuscular Hemoglobin Concent 33.5 g/dl Platelet Count 157 K/uL Mean Platelet Volume 10.4 fL Neutrophils (%) (Auto) 70.7 % Lymphocytes (%) (Auto) 13.0 % Monocytes (%) (Auto) 12.7 % Eosinophils (%) (Auto) 2.8 % Basophils (%) (Auto) 0.2 % Neutrophils # (Auto) 7.17 K/uL Lymphocytes # (Auto) 1.32 K/uL Monocytes # (Auto) 1.29 K/uL Eosinophils # (Auto) 0.28 K/uL Basophils # (Auto) 0.02 K/uL RDW Standard Deviation 43.1 fL RDW Coefficient of Variation 13.1 % Immature Granulocyte % (Auto) 0.6 % Immature Granulocyte # (Auto) 0.06 K/uL Prothrombin Time 10.7 SECONDS Prothromb Time International Ratio 1.0 Activated Partial Thromboplast Time 28.6 SECONDS Partial Thromboplastin Ratio 1.1 Sodium Level 136 mmol/L Potassium Level 3.8 mmol/L Chloride Level 105 mmol/L Carbon Dioxide Level 20 mmol/L Anion Gap 12.0 mmol/L 18.0 mmol/L Blood Urea Nitrogen 49 mg/dl Creatinine 2.11 mg/dl Est Creatinine Clear Calc Drug Dose 26.1 ml/min Estimated GFR () 32.8 Estimated GFR (Non- 28.3 BUN/Creatinine Ratio 23.2 Random Glucose 101 mg/dl Calcium Level 8.2 mg/dl Magnesium Level 2.0 mg/dl Total Bilirubin 0.6 mg/dl Aspartate Amino Transf (AST/SGOT) 26 U/L Alanine Aminotransferase (ALT/SGPT) 17 U/L Alkaline Phosphatase 84 U/L Troponin I < 0.015 ng/ml Total Protein 8.2 gm/dl Albumin 3.1 gm/dl Globulin 5.1 gm/dl Albumin/Globulin Ratio 0.6 Lipase 319 U/L Bedside Hemoglobin 11.2 g/dl Bedside Hematocrit 33 % Bedside Sodium 139 mEq/L Bedside Potassium 3.9 mEq/L Bedside Chloride 105 mEq/L Bedside Total CO2 21 mEq/l Bedside Blood Urea Nitrogen 41 mg/dl Bedside Creatinine 2.2 mg/dl Bedside Glucose (other) 110 mg/dl Bedside Ionized Calcium (Aaron) 1.11 mmol/l Venous Blood pH 7.36 Venous Blood Partial Pressure CO2 33 mmHg Venous Blood Partial Pressure O2 47 mmHg Venous Blood HCO3 18 mmol/L Venous Blood Oxygen Saturation 80.0 % Venous Blood Base Excess -6.3 mEq/L Test 04/16/18 06:33 04/16/18 08:30 White Blood Count 8.64 K/uL Red Blood Count 3.60 M/uL Hemoglobin 10.9 g/dL Hematocrit 32.3 % Mean Corpuscular Volume 89.7 fL Mean Corpuscular Hemoglobin 30.3 pg Mean Corpuscular Hemoglobin Concent 33.7 g/dl Platelet Count 146 K/uL Mean Platelet Volume 10.1 fL Neutrophils (%) (Auto) 92.7 % Lymphocytes (%) (Auto) 4.6 % Monocytes (%) (Auto) 2.1 % Eosinophils (%) (Auto) 0.0 % Basophils (%) (Auto) 0.1 % Neutrophils # (Auto) 8.01 K/uL Lymphocytes # (Auto) 0.40 K/uL Monocytes # (Auto) 0.18 K/uL Eosinophils # (Auto) 0.00 K/uL Basophils # (Auto) 0.01 K/uL RDW Standard Deviation 43.1 fL RDW Coefficient of Variation 13.1 % Immature Granulocyte % (Auto) 0.5 % Immature Granulocyte # (Auto) 0.04 K/uL Sodium Level 137 mmol/L Potassium Level 3.9 mmol/L Chloride Level 106 mmol/L Carbon Dioxide Level 21 mmol/L Anion Gap 10.0 mmol/L Blood Urea Nitrogen 50 mg/dl Creatinine 2.04 mg/dl Est Creatinine Clear Calc Drug Dose 27.0 ml/min Estimated GFR () 34.2 Estimated GFR (Non- 29.5 BUN/Creatinine Ratio 24.4 Random Glucose 156 mg/dl Calcium Level 7.8 mg/dl Urine Color YELLOW Urine Appearance CLEAR Urine pH 5.0 Urine Specific Dunbar 1.030 Urine Protein TRACE Urine Glucose (UA) NEG Urine Ketones NEG Urine Occult Blood NEG Urine Nitrite NEG Urine Bilirubin NEG Urine Urobilinogen NEG Urine Leukocyte Esterase NEG Urine WBC (Auto) 1-5 /hpf Urine RBC (Auto) 0-4 /hpf Urine Hyaline Casts (Auto) 0 /lpf Urine Epithelial Cells (Auto) 10-20 /lpf Urine Bacteria (Auto) NEG Date/Time Source Procedure Growth Status 04/15/18 20:53 Blood Blood Culture Pending Received 04/15/18 20:51 Blood Blood Culture Pending Received 04/16/18 08:30 Sputum Expectorated Sputum Gram Stain Pending Received 04/16/18 08:30 Sputum Expectorated Sputum Sputum Culture Pending Received Assessment & Plan Acute Hypoxemic Respiratory Failure Secondary due to COPD exacerbation vs PNA CTA chest showed bibasilar infiltrative change combined with a small right effusion. No evidence for PE Continue Doxycycline and Rocephin IV Continue solumedrol and neb treatment Sputum cx and blood cx pending Pulmonary on board- waiting for input Clinically improved Hemoptysis Mostly due to the cough Hgb stable Resolved Hypertension Losartan and HCTZ on hold Continue metoprolol BP stable MARC On CPAP at home Will order Cpap Acute renal failure Creatine on admission 2.11 Creatine today 2.04 Continue to hold Losartan and HCTZ DVT px on SCDs CODE STATUS FULL CODE Current Inpatient Medications: Current Inpatient Medications Medications (Trade) Dose Ordered Sig/Fatou Route Start Time Stop Time Status Last Admin Dose Admin Ioversol (Optiray 320) 100 ml UD PRN IV 04/15/18 20:00 04/19/18 19:59 Hydromorphone HCl (Dilaudid Inj) 0.5 mg Q3H PRN IV 04/15/18 21:45 04/29/18 21:44 04/15/18 23:44 0.5 MG Prochlorperazine Edisylate 5 mg/ Syringe 5 ml @ 5 mls/min Q6H PRN IV 04/15/18 21:45 05/15/18 21:44 Doxazosin Mesylate (Cardura Tab) 4 mg QPM PO 04/16/18 21:00 05/16/18 20:59 Finasteride (Proscar Tab) 5 mg QPM PO 04/16/18 21:00 05/16/18 20:59 Fluoxetine HCl (Prozac Cap) 10 mg DAILY PO 04/16/18 09:00 05/16/18 08:59 04/16/18 07:46 10 MG Levothyroxine Sodium (Synthroid Tab) 137 mcg DAILYBB PO 04/16/18 06:30 05/16/18 06:59 04/16/18 05:59 137 MCG Metoprolol Succinate (Toprol Xl Tab) 25 mg DAILY PO 04/16/18 09:00 05/16/18 08:59 04/16/18 07:44 25 MG Ranitidine HCl (zANTac TAB) 150 mg QPM PO 04/16/18 21:00 05/16/18 20:59 Felodipine (Plendil Tabcr) 10 mg DAILY PO 04/16/18 09:00 05/16/18 08:59 04/16/18 07:46 10 MG Tramadol HCl (Ultram Tab) 25 mg Q6H PRN PO 04/15/18 22:00 05/15/18 21:59 Lidocaine (Lidoderm Patch 5%) 1 patch HS TD 04/16/18 21:00 05/16/18 20:59 Miscellaneous (Remove Lidoderm Patch) 1 ea DAILY@0900 N/A 04/16/18 09:00 05/16/18 08:59 04/16/18 07:48 1 EA Ipratropium [place] (Atrovent 0.02% 0.5MG/2.5ML Neb) 0.5 mg Q6R INH 04/16/18 03:00 05/16/18 02:59 04/16/18 07:00 0.5 MG Levalbuterol (Xopenex 1.25MG/ 0.5ML Neb) 1.25 mg Q6R INH 04/16/18 03:00 05/16/18 02:59 04/16/18 07:00 1.25 MG Ipratropium [place] (Atrovent 0.02% 0.5MG/2.5ML Neb) 0.5 mg Q4H PRN INH 04/15/18 22:15 05/15/18 22:14 Levalbuterol (Xopenex 1.25MG/ 0.5ML Neb) 1.25 mg Q4H PRN INH 04/15/18 22:15 05/15/18 22:14 Acetaminophen (Tylenol Tab) 650 mg Q4H PRN PO 04/15/18 23:00 05/15/18 22:59 Prednisone (PredniSONE TAB) 40 mg DAILY PO 04/16/18 09:00 04/21/18 08:59 04/16/18 07:45 40 MG Sodium Chloride 1,000 ml @ 60 mls/hr [id number] ONCE IV 04/15/18 23:30 04/16/18 16:09 04/15/18 23:44 60 MLS/HR Atorvastatin Calcium (Lipitor Tab) 40 mg DAILY PO 04/16/18 09:00 05/16/18 08:59 04/16/18 07:45 40 MG Doxycycline Hyclate 100 mg/ Dextrose 110 ml @ 50 mls/hr Q12H IV 04/16/18 11:00 04/23/18 10:59 04/16/18 11:11 50 MLS/HR Ceftriaxone Sodium 1 gm/ Dextrose 50 ml @ 100 mls/hr Q24H IV 04/16/18 09:00 04/23/18 08:59 04/16/18 07:48 100 MLS/HR Benzonatate (Tessalon Perles Cap) 100 mg Q8H PRN PO 04/15/18 23:00 05/15/18 22:59
--- NOTE | 2018-04-16 16:51 | Pulmonary Consultation ---
History General Date of Service: Apr 16, 2018. Stated Complaint: Respiratory Failure, Acute HPI Dear Dr. Garcia: Thank you for your kind referral of Mr. oreilly to pulmonary service. This is 82-year-old gentleman with a history of PE in the past, psoriasis, hypertension , hyperlipidemia, hyperthyroidism, obstructive sleep apnea on CPAP, presented to the hospital after he had an episode of right-sided pleuritic chest pain after he was lifting at work. 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 2 days later the patient started having cough with blood-tinged sputum which was new to him. He decided to come into the hospital. The patient denies any history of hemoptysis in the past, he did not have any chest pain substernally, no increased shortness of breath and no increased swelling in his lower extremities. He did not have any nocturnal symptoms. The patient has been treated in the past for psoriasis but he did not have any complications from respiratory standpoint from it. He has been treated with Enbrel and he did not have treatment with methotrexate or prednisone in the past. He continued to have ongoing psoriasis mainly tenuously. The patient did not have a history of epistaxis, no nausea or vomiting, no hematemesis, no epigastric pain, no heartburn, no abdominal pain and no change in bowel movements or urine habits. Denies any increased swelling in his lower extremities. The rest of his review of system was unremarkable. The patient is non-smoker lifetime and he denies having any industrial exposure. His family history does not contribute to his current illness. His surgical history was negative for cardiac intervention, he does not have any surgery done on his thoracic cavity either. Historian: patient, other (Records) Review of Systems Constitutional: reports: no symptoms Eyes: reports: no symptoms ENT: reports: no symptoms Cardiovascular: reports: chest pain Respiratory: reports: cough, hemoptysis Genitourinary - Male: reports: no symptoms Musculoskeletal: reports: no symptoms Neurologic: reports: no symptoms Psychiatric: reports: no symptoms Endocrine: no symptoms Hematologic / Lymphatic: no symptoms Allergic / Immunologic: other (Skin rash due to psoriasis.) Past Medical History Past Medical History: As above in the first section. Family History Cancer Heart disease Hypertension Social History Hx Tobacco Use In Past Year?: No Smoking Status: Former Smoker Immunizations History of Influenza Vaccine: Yes Influenza Vaccine Date: May 29, 2017 History of Tetanus Vaccine?: Yes Tetanus Immunization Date: Dec 05, 2011 History of Pneumococcal: Yes Pneumococcal Date: January 27, 2015 History of MDRO History of MDRO: No Allergies Coded Allergies: SIDNEY Inhibitors (Verified Allergy, Unknown, COUGH, 02/20/15) Current Medications Reported Home Medications Medications Dose Route/Sig Max Daily Dose Days Date Category Flovent Hfa (Fluticasone Propionate) 120 Puffs/87558 Mcg Aero 2 Puffs INH BID 30 04/15/18 Reported Aspirin Ec (Aspirin) 325 Mg Tab 325 Mg PO QPM 04/15/18 Reported Toprol Xl (Metoprolol Succinate) 25 Mg Tabcr 25 Mg PO QPM 04/15/18 Reported Hyzaar 25MG/100MG (HCTZ/Losartan Potassium) Tab 1 Tab PO DAILY 04/15/18 Reported Zantac (Ranitidine HCl) 150 Mg Tab 150 Mg PO QPM 02/18/15 Reported Proscar (Finasteride) 5 Mg Tab 5 Mg PO QPM 02/18/15 Reported Prozac (Fluoxetine HCl) 10 Mg Cap 10 Mg PO DAILY 02/18/15 Reported Lipitor (Atorvastatin Calcium) 40 Mg Tab 40 Mg PO DAILY 02/18/15 Reported Levothyroxine Sodium 137 Mcg Tab 1 Tab PO DAILY 02/18/15 Reported Felodipine ER (Felodipine) 10 Mg Tabcr 1 Tab PO DAILY 02/18/15 Reported Cardura (Doxazosin Mesylate) 4 Mg Tab 4 Mg PO QPM 02/18/15 Reported Physical Physical Exam Vital Signs: Date Time Temp Pulse Resp B/P (MAP) Pulse Ox O2 Delivery O2 Flow Rate FiO2 04/16/18 15:23 36.6 84 18 138/51 (80) 93 Nasal Cannula 4.0 04/16/18 13:44 87 18 94 Nasal Cannula 4.0 04/16/18 11:28 36.9 73 20 111/50 (70) 92 Room Air 04/16/18 08:00 Nasal Cannula 5.0 04/16/18 07:21 36.9 90 22 125/69 (87) 92 Nasal Cannula 4.0 04/16/18 07:01 90 18 92 Nasal Cannula 4.0 04/16/18 04:39 37.2 76 16 135/72 (93) 92 Room Air 04/16/18 01:50 95 20 94 Nasal Cannula 4.0 04/16/18 00:40 Nasal Cannula 5.0 04/15/18 23:30 36.6 100 20 119/65 92 Nasal Cannula 5.0 04/15/18 22:28 91 Nasal Cannula 6.0 04/15/18 22:23 89 Nasal Cannula 4.0 04/15/18 22:22 89 Nasal Cannula 3.0 04/15/18 22:12 94 24 92 Nasal Cannula 3.0 04/15/18 22:06 97 27 91 04/15/18 22:01 111/68 04/15/18 21:36 99 04/15/18 21:31 136/69 04/15/18 21:29 Nasal Cannula 3.0 04/15/18 21:06 88 25 93 04/15/18 21:01 89 Room Air 04/15/18 21:01 87 24 144/81 93 Nasal Cannula 2.0 04/15/18 21:01 Nasal Cannula 2.0 04/15/18 20:52 88 25 90 04/15/18 20:37 90 22 92 04/15/18 20:31 147/68 04/15/18 20:07 86 27 92 04/15/18 20:01 132/64 04/15/18 19:54 99 04/15/18 19:52 99 23 92 04/15/18 19:50 140/66 04/15/18 19:42 36.9 87 20 151/56 93 Room Air General Appearance: WELL-APPEARING Eyes: EOMI ENT: NORMAL MOUTH EXAM, NORMAL THROAT EXAM Neck: TRACHEA MIDLINE Respiratory: BREATH SOUNDS NORMAL Cardiovasular: REGULAR RATE/RHYTHM, NORMAL S1S2, NO M/G/R, NO MURMUR Abdomen: NON TENDER, NORMAL BOWEL SOUNDS, NO REBOUND, NO MASSES, NO GUARDING Back: NORMAL INSPECTION Upper Extremities: other (Psoriasis in the upper and lower extremities mainly in the skin.) Neuro: ALERT, ORIENTED x 3, NORMAL MOTOR EXAM, NORMAL SENSATION Psychiatric: NORMAL AFFECT Diagnostics Labs Results Past 24 Hours Test 04/15/18 19:55 04/15/18 20:06 04/15/18 21:39 04/16/18 00:17 Range/Units White Blood Count 10.14 4.8-10.8 K/uL Red Blood Count 3.93 4.7-6.1 M/uL Hemoglobin 11.8 11.0 14.0-18.0 g/dL Hematocrit 35.2 32.4 42-52 % Mean Corpuscular Volume 89.6 80-100 fL Mean Corpuscular Hemoglobin 30.0 25-34 pg Mean Corpuscular Hemoglobin Concent 33.5 32-36 g/dl Platelet Count 157 130-400 K/uL Mean Platelet Volume 10.4 7.4-10.4 fL Neutrophils (%) (Auto) 70.7 % Lymphocytes (%) (Auto) 13.0 % Monocytes (%) (Auto) 12.7 % Eosinophils (%) (Auto) 2.8 % Basophils (%) (Auto) 0.2 % Neutrophils # (Auto) 7.17 1.4-6.5 K/uL Lymphocytes # (Auto) 1.32 1.2-3.4 K/uL Monocytes # (Auto) 1.29 0.11-0.59 K/uL Eosinophils # (Auto) 0.28 0-0.5 K/uL Basophils # (Auto) 0.02 0-0.2 K/uL RDW Standard Deviation 43.1 36.4-46.3 fL RDW Coefficient of Variation 13.1 11.5-14.5 % Immature Granulocyte % (Auto) 0.6 % Immature Granulocyte # (Auto) 0.06 0.00-0.02 K/uL Prothrombin Time 10.7 9.0-12.0 SECONDS Prothromb Time International Ratio 1.0 0.9-1.1 Activated Partial Thromboplast Time 28.6 21.0-31.0 SECONDS Partial Thromboplastin Ratio 1.1 Sodium Level 136 136-145 mmol/L Potassium Level 3.8 3.5-5.1 mmol/L Chloride Level 105 98-107 mmol/L Carbon Dioxide Level 20 21-32 mmol/L Anion Gap 12.0 18.0 16-25 mmol/L Blood Urea Nitrogen 49 7-18 mg/dl Creatinine 2.11 0.60-1.40 mg/dl Est Creatinine Clear Calc Drug Dose 26.1 ml/min Estimated GFR () 32.8 Estimated GFR (Non- 28.3 BUN/Creatinine Ratio 23.2 10-20 Random Glucose 101 70-99 mg/dl Calcium Level 8.2 8.5-10.1 mg/dl Magnesium Level 2.0 1.8-2.4 mg/dl Total Bilirubin 0.6 0.2-1 mg/dl Aspartate Amino Transf (AST/SGOT) 26 15-37 U/L Alanine Aminotransferase (ALT/SGPT) 17 12-78 U/L Alkaline Phosphatase 84 45-117 U/L Troponin I < 0.015 0-0.045 ng/ml Total Protein 8.2 6.4-8.2 gm/dl Albumin 3.1 3.4-5.0 gm/dl Globulin 5.1 2.5-4.0 gm/dl Albumin/Globulin Ratio 0.6 0.9-2 Lipase 319 73-393 U/L Bedside Hemoglobin 11.2 14.0-18.0 g/dl Bedside Hematocrit 33 42-52 % Bedside Sodium 139 135-144 mEq/L Bedside Potassium 3.9 3.3-5.0 mEq/L Bedside Chloride 105 101-112 mEq/L Bedside Total CO2 21 24-31 mEq/l Bedside Blood Urea Nitrogen 41 7-18 mg/dl Bedside Creatinine 2.2 0.6-1.3 mg/dl Bedside Glucose (other) 110 70-99 mg/dl Bedside Ionized Calcium (Aaron) 1.11 1.12-1.32 mmol/l Venous Blood pH 7.36 7.36-7.41 Venous Blood Partial Pressure CO2 33 38.0-50.0 mmHg Venous Blood Partial Pressure O2 47 mmHg Venous Blood HCO3 18 mmol/L Venous Blood Oxygen Saturation 80.0 % Venous Blood Base Excess -6.3 mEq/L Test 04/16/18 06:33 04/16/18 08:30 Range/Units White Blood Count 8.64 4.8-10.8 K/uL Red Blood Count 3.60 4.7-6.1 M/uL Hemoglobin 10.9 14.0-18.0 g/dL Hematocrit 32.3 42-52 % Mean Corpuscular Volume 89.7 80-100 fL Mean Corpuscular Hemoglobin 30.3 25-34 pg Mean Corpuscular Hemoglobin Concent 33.7 32-36 g/dl Platelet Count 146 130-400 K/uL Mean Platelet Volume 10.1 7.4-10.4 fL Neutrophils (%) (Auto) 92.7 % Lymphocytes (%) (Auto) 4.6 % Monocytes (%) (Auto) 2.1 % Eosinophils (%) (Auto) 0.0 % Basophils (%) (Auto) 0.1 % Neutrophils # (Auto) 8.01 1.4-6.5 K/uL Lymphocytes # (Auto) 0.40 1.2-3.4 K/uL Monocytes # (Auto) 0.18 0.11-0.59 K/uL Eosinophils # (Auto) 0.00 0-0.5 K/uL Basophils # (Auto) 0.01 0-0.2 K/uL RDW Standard Deviation 43.1 36.4-46.3 fL RDW Coefficient of Variation 13.1 11.5-14.5 % Immature Granulocyte % (Auto) 0.5 % Immature Granulocyte # (Auto) 0.04 0.00-0.02 K/uL Sodium Level 137 136-145 mmol/L Potassium Level 3.9 3.5-5.1 mmol/L Chloride Level 106 98-107 mmol/L Carbon Dioxide Level 21 21-32 mmol/L Anion Gap 10.0 3-11 mmol/L Blood Urea Nitrogen 50 7-18 mg/dl Creatinine 2.04 0.60-1.40 mg/dl Est Creatinine Clear Calc Drug Dose 27.0 ml/min Estimated GFR () 34.2 Estimated GFR (Non- 29.5 BUN/Creatinine Ratio 24.4 10-20 Random Glucose 156 70-99 mg/dl Calcium Level 7.8 8.5-10.1 mg/dl Urine Color YELLOW Urine Appearance CLEAR CLEAR Urine pH 5.0 4.5-7.5 Urine Specific Pillow 1.030 1.000-1.030 Urine Protein TRACE NEG Urine Glucose (UA) NEG NEG Urine Ketones NEG NEG Urine Occult Blood NEG NEG Urine Nitrite NEG NEG Urine Bilirubin NEG NEG Urine Urobilinogen NEG NEG Urine Leukocyte Esterase NEG NEG Urine WBC (Auto) 1-5 0-5 /hpf Urine RBC (Auto) 0-4 0-4 /hpf Urine Hyaline Casts (Auto) 0 0-5 /lpf Urine Epithelial Cells (Auto) 10-20 0-5 /lpf Urine Bacteria (Auto) NEG NEG Microbiology Results 04/15/18 Blood Culture, Received Pending 04/15/18 Blood Culture, Received Pending 04/16/18 Gram Stain, Received Pending 04/16/18 Sputum Culture, Received Pending Diagnostic Radiology Chest x-ray followed by a CAT scan of the chest which showed multilobar infiltrates and volume loss mainly in the right lower lobe and right middle lobe. No lymphadenopathy. No evidence of PE. White count is normal however he does have bandemia. Impression Assessment and Plan 1. Acute respiratory failure with hypoxia. Due to community acquired pneumonia. 2. Community-acquired pneumonia, multilobar affecting the right side only. Etiology is unknown. 3. History of psoriasis, although it may cause pneumonitis, I do not have any evidence for it at this point. 4. Hemoptysis, in the face of blood-tinged sputum with community-acquired pneumonia. Plan: 1. Agree with ceftriaxone and doxycycline. 2. Obtain Legionella and pneumococcal antigens. 3. Incentive spirometry. 4. Ambulate with assistance. 5. Thank you for your kind referral, will follow.
[2018-04-16] MEDS: RANITIDINE HCL 150 MG TAB PO SCH (20:31)
[2018-04-16] MEDS: DOXAZosin MESYLATE TAB 4 MG TAB PO SCH (20:32)
[2018-04-16] MEDS: FINASTERIDE 5 MG TAB PO SCH (20:32)
[2018-04-16] MEDS: LIDODERM (LIDOCAINE) PATCH 5% TD SCH (20:38)
[2018-04-17] VITALS (7 sets, daily range): BP systolic 114–135; BP diastolic 54–71; PULSE 72–125; TEMP 36.6–36.8; O2SAT 90–96
[2018-04-17] MEDS: LEVALBUTEROL 1.25MG/0.5ML NEB INH SCH ×4 (01:49→19:16)
[2018-04-17] MEDS: IPRATROPIUM BROMIDE NEB SOLN 0.02% 2.5 ML VIAL INH SCH ×4 (01:49→19:16)
[2018-04-17 05:23] LABS: EOS % 0.2 %; EOS ABS # 0.02 K/uL (0-0.5); HEMATOCRIT 29.5 % (42-52); HEMOGLOBIN 10.1 g/dL (14.0-18.0); IG# 0.04 K/uL (0.00-0.02); LYMPH % 8.9 %; LYMPH ABS # 0.73 K/uL (1.2-3.4); MEAN CELL VOLUME 88.1 fL (80-100); MEAN CORPUSCULAR HEMOGLOBIN 30.1 pg (25-34); MEAN CORPUSCULAR HGB CONC 34.2 g/dl (32-36); MEAN PLATELET VOLUME 9.6 fL (7.4-10.4); MONO % 11.3 %; MONO ABS # 0.93 K/uL (0.11-0.59); NEUT % 79.1 %; NEUT ABS # 6.51 K/uL (1.4-6.5); PLATELET COUNT 153 K/uL (130-400); RED CELL DISTRIBUTION WIDTH CV 12.8 % (11.5-14.5); RED CELL DISTRIBUTION WIDTH SD 41.4 fL (36.4-46.3); WHITE BLOOD COUNT 8.23 K/uL (4.8-10.8)
[2018-04-17 05:41] LABS: CALCIUM 7.5 mg/dl (8.5-10.1); CREATININE 1.78 mg/dl (0.60-1.40)
[2018-04-17] MEDS: LEVOTHYROXINE 137 MCG TAB PO SCH (06:30)
[2018-04-17] MEDS: CEFTRIAXONE SOD INJ 1 GM in DEXTROSE 5% ADD-VANTAGE 50ML 50 ML IV SCH (07:43)
[2018-04-17] MEDS: FLUOXETINE HCL 10 MG CAP PO SCH (07:43)
[2018-04-17] MEDS: METOPROLOL SUCC 25MG EXT REL TAB PO SCH (07:43)
[2018-04-17] MEDS: FELODIPINE 5 MG TABCR PO SCH (07:44)
[2018-04-17] MEDS: ATORVASTATIN 40 MG TAB PO SCH (07:44)
[2018-04-17] MEDS: DOXYCYCLINE IV 100 MG in DEXTROSE 5% 100ML 100 ML IV SCH (14:50)
[2018-04-17] MEDS ORDERED: NURSING VERBAL MED ORDER ONE (15:00)
--- NOTE | 2018-04-17 18:44 | Pulmonology Progress Note ---
Pulmonary Progress Note Date of Service Apr 17, 2018. Attending Dr. Sarah Subjective The patient is feeling much better, denies any shortness of breath, his pleuritic chest pain has improved, he continued to have cough with pink and blood-tinged sputum according to him. Much less than it was before. No discomfort at the right side of the chest. No new symptoms and no increased swelling in his lower extremities. Objective Physical exam on 04/17/2018 showed stable vital signs, no fever, S1-S2 regular rate and rhythm, clear lung rodriguez, abdomen is benign, no edema. His laboratory showed no leukocytosis, 4% bands at the rest of his labs are acceptable. BUN/creatinine also are improving. Assessment & Plan 1. Multilobar pneumonia. Likely community acquired. 2. History of psoriasis, less likely to be affecting the lung however the patient does have flareup of the skin, treated in the past with immunotherapy with Enbrel. 3. Pleuritic chest pain, resolved. 4. Hemoptysis, subsiding. Plan: 1. Discontinue ceftriaxone and doxycycline. 2. Start Levaquin 500 mg p.o. daily renal dose starting tomorrow for 7 days. 3. Repeat chest x-ray in 2 weeks. 4. Patient can be discharged home and follow-up with pulmonary as an outpatient. Thank you for your kind referral. Data Medications: Current Inpatient Medications Medications (Trade) Dose Ordered Sig/Fatou Route Start Time Stop Time Status Last Admin Dose Admin Ioversol (Optiray 320) 100 ml UD PRN IV 04/15/18 20:00 04/19/18 19:59 Hydromorphone HCl (Dilaudid Inj) 0.5 mg Q3H PRN IV 04/15/18 21:45 04/29/18 21:44 04/15/18 23:44 0.5 MG Prochlorperazine Edisylate 5 mg/ Syringe 5 ml @ 5 mls/min Q6H PRN IV 04/15/18 21:45 05/15/18 21:44 Doxazosin Mesylate (Cardura Tab) 4 mg QPM PO 04/16/18 21:00 05/16/18 20:59 04/16/18 20:32 4 MG Finasteride (Proscar Tab) 5 mg QPM PO 04/16/18 21:00 05/16/18 20:59 04/16/18 20:32 5 MG Fluoxetine HCl (Prozac Cap) 10 mg DAILY PO 04/16/18 09:00 05/16/18 08:59 04/17/18 07:43 10 MG Levothyroxine Sodium (Synthroid Tab) 137 mcg DAILYBB PO 04/16/18 06:30 05/16/18 06:59 04/17/18 06:30 137 MCG Metoprolol Succinate (Toprol Xl Tab) 25 mg DAILY PO 04/16/18 09:00 05/16/18 08:59 04/17/18 07:43 25 MG Ranitidine HCl (zANTac TAB) 150 mg QPM PO 04/16/18 21:00 05/16/18 20:59 04/16/18 20:31 150 MG Felodipine (Plendil Tabcr) 10 mg DAILY PO 04/16/18 09:00 05/16/18 08:59 04/17/18 07:44 10 MG Tramadol HCl (Ultram Tab) 25 mg Q6H PRN PO 04/15/18 22:00 05/15/18 21:59 Lidocaine (Lidoderm Patch 5%) 1 patch HS TD 04/16/18 21:00 05/16/18 20:59 04/16/18 20:38 1 PATCH Miscellaneous (Remove Lidoderm Patch) 1 ea DAILY@0900 N/A 04/16/18 09:00 05/16/18 08:59 04/17/18 07:42 1 EA Ipratropium [place] (Atrovent 0.02% 0.5MG/2.5ML Neb) 0.5 mg Q6R INH 04/16/18 03:00 05/16/18 02:59 04/17/18 14:01 0.5 MG Levalbuterol (Xopenex 1.25MG/ 0.5ML Neb) 1.25 mg Q6R INH 04/16/18 03:00 05/16/18 02:59 04/17/18 14:01 1.25 MG Ipratropium [place] (Atrovent 0.02% 0.5MG/2.5ML Neb) 0.5 mg Q4H PRN INH 04/15/18 22:15 05/15/18 22:14 Levalbuterol (Xopenex 1.25MG/ 0.5ML Neb) 1.25 mg Q4H PRN INH 04/15/18 22:15 05/15/18 22:14 Acetaminophen (Tylenol Tab) 650 mg Q4H PRN PO 04/15/18 23:00 05/15/18 22:59 Prednisone (PredniSONE TAB) 40 mg DAILY PO 04/16/18 09:00 04/21/18 08:59 04/17/18 07:43 40 MG Atorvastatin Calcium (Lipitor Tab) 40 mg DAILY PO 04/16/18 09:00 05/16/18 08:59 04/17/18 07:44 40 MG Benzonatate (Tessalon Perles Cap) 100 mg Q8H PRN PO 04/15/18 23:00 05/15/18 22:59 04/17/18 07:43 100 MG Levofloxacin (Levaquin Tab) 500 mg DAILY@11 PO 04/18/18 11:00 04/25/18 10:59 UNV I & O: 24-Hour Column 04/18/18 08:00 Intake Total 500 ml Output Total 200 ml Balance 300 ml Vital Signs: Date Time Temp Pulse Resp B/P (MAP) Pulse Ox O2 Delivery O2 Flow Rate FiO2 04/17/18 18:00 Room Air 04/17/18 14:01 87 18 95 Nasal Cannula 2.0 04/17/18 08:00 Nasal Cannula 2.0 04/17/18 07:44 36.6 72 18 123/54 (77) 94 4.0 04/17/18 07:03 74 18 95 Nasal Cannula 4.0 04/17/18 00:17 Nasal Cannula 4.0 04/17/18 00:07 36.8 74 20 135/61 (85) 94 Nasal Cannula 4.0 04/16/18 20:00 Nasal Cannula 5.0 04/16/18 19:53 36.7 84 20 137/69 (91) 95 Nebulizer 4.0 04/16/18 19:23 85 18 94 Nasal Cannula 4.0 Laboratory Results: Last 24 Hours Test 04/16/18 19:59 04/17/18 05:02 White Blood Count 8.23 K/uL Red Blood Count 3.35 M/uL Hemoglobin 10.1 g/dL Hematocrit 29.5 % Mean Corpuscular Volume 88.1 fL Mean Corpuscular Hemoglobin 30.1 pg Mean Corpuscular Hemoglobin Concent 34.2 g/dl Platelet Count 153 K/uL Mean Platelet Volume 9.6 fL Neutrophils (%) (Auto) 79.1 % Lymphocytes (%) (Auto) 8.9 % Monocytes (%) (Auto) 11.3 % Eosinophils (%) (Auto) 0.2 % Basophils (%) (Auto) 0.0 % Neutrophils # (Auto) 6.51 K/uL Lymphocytes # (Auto) 0.73 K/uL Monocytes # (Auto) 0.93 K/uL Eosinophils # (Auto) 0.02 K/uL Basophils # (Auto) 0.00 K/uL RDW Standard Deviation 41.4 fL RDW Coefficient of Variation 12.8 % Immature Granulocyte % (Auto) 0.5 % Immature Granulocyte # (Auto) 0.04 K/uL Sodium Level 138 mmol/L Potassium Level 4.0 mmol/L Chloride Level 111 mmol/L Carbon Dioxide Level 20 mmol/L Anion Gap 7.0 mmol/L Blood Urea Nitrogen 50 mg/dl Creatinine 1.78 mg/dl Est Creatinine Clear Calc Drug Dose 30.9 ml/min Estimated GFR () 40.3 Estimated GFR (Non- 34.8 BUN/Creatinine Ratio 28.0 Random Glucose 116 mg/dl Calcium Level 7.5 mg/dl
--- NOTE | 2018-04-17 19:18 | Progress Note ---
Medicine Progress Note Date & Time of Visit: Apr 17, 2018 at 19:12. Subjective Pt was seen and examined Sitting in bed with no distress Pt said that he is feeling much better today He said that cough is getting loose Denies any chest pain, palpitation, dizziness and fever Objective Last 8 Hrs Date Time Temp Pulse Resp B/P (MAP) Pulse Ox O2 Delivery O2 Flow Rate FiO2 04/17/18 18:00 Room Air 04/17/18 14:01 87 18 95 Nasal Cannula 2.0 Physical Exam: General- No acute distress Head- atraumatic Eyes- PERRL, EOMI ENT- Oropharynx clear Neck- supple, no JVD Lungs- decrease breath sound Heart- regular rhythm Abdomen- normal bowel sounds, soft Extremities- no calf tenderness Neuro- alert, oriented x 3; PERRL, EOMI; no facial palsy Skin- warm & dry Laboratory Results: Last 24 Hours Test 04/16/18 19:59 04/17/18 05:02 White Blood Count 8.23 K/uL Red Blood Count 3.35 M/uL Hemoglobin 10.1 g/dL Hematocrit 29.5 % Mean Corpuscular Volume 88.1 fL Mean Corpuscular Hemoglobin 30.1 pg Mean Corpuscular Hemoglobin Concent 34.2 g/dl Platelet Count 153 K/uL Mean Platelet Volume 9.6 fL Neutrophils (%) (Auto) 79.1 % Lymphocytes (%) (Auto) 8.9 % Monocytes (%) (Auto) 11.3 % Eosinophils (%) (Auto) 0.2 % Basophils (%) (Auto) 0.0 % Neutrophils # (Auto) 6.51 K/uL Lymphocytes # (Auto) 0.73 K/uL Monocytes # (Auto) 0.93 K/uL Eosinophils # (Auto) 0.02 K/uL Basophils # (Auto) 0.00 K/uL RDW Standard Deviation 41.4 fL RDW Coefficient of Variation 12.8 % Immature Granulocyte % (Auto) 0.5 % Immature Granulocyte # (Auto) 0.04 K/uL Sodium Level 138 mmol/L Potassium Level 4.0 mmol/L Chloride Level 111 mmol/L Carbon Dioxide Level 20 mmol/L Anion Gap 7.0 mmol/L Blood Urea Nitrogen 50 mg/dl Creatinine 1.78 mg/dl Est Creatinine Clear Calc Drug Dose 30.9 ml/min Estimated GFR () 40.3 Estimated GFR (Non- 34.8 BUN/Creatinine Ratio 28.0 Random Glucose 116 mg/dl Calcium Level 7.5 mg/dl Assessment & Plan Acute Hypoxemic Respiratory Failure Secondary due to COPD exacerbation vs PNA CTA chest showed bibasilar infiltrative change combined with a small right effusion. No evidence for PE Continue Doxycycline and Rocephin IV Continue solumedrol and neb treatment Sputum cx and blood cx pending Pulmonary on board- waiting for input Clinically improved 04/17 Clinically improved blood cx no growth Sputum cx growth normal lisa Pulmonary on board Recommended to D/C rocephin and Doxycycline Will start on levaquin 500mg daily in am to complete 7 days course Will need follow up with pulmonary repeat CXR in 2 weeks Hemoptysis Mostly due to the cough Hgb stable Resolved Hypertension Losartan and HCTZ on hold Continue metoprolol BP stable MARC On CPAP at home On Cpap Acute renal failure Creatine on admission 2.11 Creatine today 1.7 Continue to hold Losartan and HCTZ DVT px on SCDs CODE STATUS FULL CODE Disposition Possible discharge tomorrow if stable Current Inpatient Medications: Current Inpatient Medications Medications (Trade) Dose Ordered Sig/Fatou Route Start Time Stop Time Status Last Admin Dose Admin Ioversol (Optiray 320) 100 ml UD PRN IV 04/15/18 20:00 04/19/18 19:59 Hydromorphone HCl (Dilaudid Inj) 0.5 mg Q3H PRN IV 04/15/18 21:45 04/29/18 21:44 04/15/18 23:44 0.5 MG Prochlorperazine Edisylate 5 mg/ Syringe 5 ml @ 5 mls/min Q6H PRN IV 04/15/18 21:45 05/15/18 21:44 Doxazosin Mesylate (Cardura Tab) 4 mg QPM PO 04/16/18 21:00 05/16/18 20:59 04/16/18 20:32 4 MG Finasteride (Proscar Tab) 5 mg QPM PO 04/16/18 21:00 05/16/18 20:59 04/16/18 20:32 5 MG Fluoxetine HCl (Prozac Cap) 10 mg DAILY PO 04/16/18 09:00 05/16/18 08:59 04/17/18 07:43 10 MG Levothyroxine Sodium (Synthroid Tab) 137 mcg DAILYBB PO 04/16/18 06:30 05/16/18 06:59 04/17/18 06:30 137 MCG Metoprolol Succinate (Toprol Xl Tab) 25 mg DAILY PO 04/16/18 09:00 05/16/18 08:59 04/17/18 07:43 25 MG Ranitidine HCl (zANTac TAB) 150 mg QPM PO 04/16/18 21:00 05/16/18 20:59 04/16/18 20:31 150 MG Felodipine (Plendil Tabcr) 10 mg DAILY PO 04/16/18 09:00 05/16/18 08:59 04/17/18 07:44 10 MG Tramadol HCl (Ultram Tab) 25 mg Q6H PRN PO 04/15/18 22:00 05/15/18 21:59 Lidocaine (Lidoderm Patch 5%) 1 patch HS TD 04/16/18 21:00 05/16/18 20:59 04/16/18 20:38 1 PATCH Miscellaneous (Remove Lidoderm Patch) 1 ea DAILY@0900 N/A 04/16/18 09:00 05/16/18 08:59 04/17/18 07:42 1 EA Ipratropium [place] (Atrovent 0.02% 0.5MG/2.5ML Neb) 0.5 mg Q6R INH 04/16/18 03:00 05/16/18 02:59 04/17/18 14:01 0.5 MG Levalbuterol (Xopenex 1.25MG/ 0.5ML Neb) 1.25 mg Q6R INH 04/16/18 03:00 05/16/18 02:59 04/17/18 14:01 1.25 MG Ipratropium [place] (Atrovent 0.02% 0.5MG/2.5ML Neb) 0.5 mg Q4H PRN INH 04/15/18 22:15 05/15/18 22:14 Levalbuterol (Xopenex 1.25MG/ 0.5ML Neb) 1.25 mg Q4H PRN INH 04/15/18 22:15 05/15/18 22:14 Acetaminophen (Tylenol Tab) 650 mg Q4H PRN PO 04/15/18 23:00 05/15/18 22:59 Prednisone (PredniSONE TAB) 40 mg DAILY PO 04/16/18 09:00 04/21/18 08:59 04/17/18 07:43 40 MG Atorvastatin Calcium (Lipitor Tab) 40 mg DAILY PO 04/16/18 09:00 05/16/18 08:59 04/17/18 07:44 40 MG Benzonatate (Tessalon Perles Cap) 100 mg Q8H PRN PO 04/15/18 23:00 05/15/18 22:59 04/17/18 07:43 100 MG Levofloxacin (Levaquin Tab) 500 mg DAILY@11 PO 04/18/18 11:00 04/25/18 10:59 UNV
[2018-04-17] MEDS: RANITIDINE HCL 150 MG TAB PO SCH (20:43)
[2018-04-17] MEDS: LIDODERM (LIDOCAINE) PATCH 5% TD SCH (20:43)
[2018-04-17] MEDS: FINASTERIDE 5 MG TAB PO SCH (20:43)
[2018-04-17] MEDS: DOXAZosin MESYLATE TAB 4 MG TAB PO SCH (20:44)
[2018-04-18] VITALS: PULSE 82
[2018-04-18] MEDS: LEVALBUTEROL 1.25MG/0.5ML NEB INH SCH ×2 (01:50→07:19)
[2018-04-18 01:51] VITALS: PULSE 114; O2SAT 94
[2018-04-18] MEDS: IPRATROPIUM BROMIDE NEB SOLN 0.02% 2.5 ML VIAL INH SCH ×2 (01:51→07:19)
[2018-04-18] MEDS: LEVOTHYROXINE 137 MCG TAB PO SCH (06:19)
[2018-04-18 06:25] LABS: EOS % 0.6 %; EOS ABS # 0.05 K/uL (0-0.5); HEMATOCRIT 30.5 % (42-52); HEMOGLOBIN 10.3 g/dL (14.0-18.0); IG# 0.07 K/uL (0.00-0.02); LYMPH % 15.6 %; MEAN CELL VOLUME 88.4 fL (80-100); MEAN CORPUSCULAR HEMOGLOBIN 29.9 pg (25-34); MEAN CORPUSCULAR HGB CONC 33.8 g/dl (32-36); MEAN PLATELET VOLUME 9.6 fL (7.4-10.4); MONO % 11.9 %; MONO ABS # 0.92 K/uL (0.11-0.59); NEUT ABS # 5.46 K/uL (1.4-6.5); PLATELET COUNT 186 K/uL (130-400); RED CELL DISTRIBUTION WIDTH CV 13.1 % (11.5-14.5); RED CELL DISTRIBUTION WIDTH SD 42.6 fL (36.4-46.3)
[2018-04-18 06:53] VITALS: BP 133/64; PULSE 100; TEMP 36.4; O2SAT 93
[2018-04-18 06:59] LABS: CREATININE 1.66 mg/dl (0.60-1.40); POTASSIUM 4.1 mmol/L (3.5-5.1)
[2018-04-18 07:19] VITALS: PULSE 77; O2SAT 97
[2018-04-18] MEDS: ATORVASTATIN 40 MG TAB PO SCH (08:55)
[2018-04-18] MEDS: FELODIPINE 5 MG TABCR PO SCH (08:55)
[2018-04-18] MEDS: FLUOXETINE HCL 10 MG CAP PO SCH (08:56)
[2018-04-18] MEDS: METOPROLOL SUCC 25MG EXT REL TAB PO SCH (08:56)
[2018-04-18] MEDS ORDERED: LEVOFLOXACIN 750 MG TAB PO SCH (11:00)
[2018-04-18] MEDS ORDERED: LVQ750 PO (11:45)
--- NOTE | 2018-04-18 11:46 | Progress Note ---
Internal Med Progress Note Date of Service: Apr 18, 2018. Provider Documentation: SUBJECTIVE: Patient is ambulatory and breathing on room air. Patient denies shortness of breath. Patient denies acute cough. Patient denies acute chest pain. OBJECTIVE: General- No acute distress Head- atraumatic Eyes- EOMI ENT- Oropharynx clear Neck- supple, no JVD Lungs- mild crackles right lung base, otherwise good inhalation and exhalation , no wheezing, Heart- regular rhythm Abdomen- normal bowel sounds, soft Extremities- no edema Neuro- alert, oriented x 3; EOMI; no facial palsy Skin- warm & dry ASSESSMENT & PLAN: Hospital Course, Imaging, Discharge Plans Abdomen 04/15/[address] WITHOUT CONTRAST FINDINGS: Bibasilar consolidation. No pneumoperitoneum. No pneumatosis. There is a right total hip arthroplasty. No suspicious lytic or blastic osseous lesions. Small hiatus hernia. The distal esophagus is mildly distended and fluid-filled. There is motion artifact. The liver and spleen demonstrate punctate calcified granulomas. There is a 2.4 cm hypodense lesion within the right hepatic lobe. This likely represents a cyst. The unenhanced gallbladder, pancreas, and adrenal glands are unremarkable. There is contrast within the urinary system due to the recent chest CTA. No hydronephrosis. The 6 cm left parapelvic renal cyst. No retroperitoneal lymphadenopathy. The prostate gland is mildly enlarged. No bladder wall thickening. Suboptimal evaluation for bowel pathology due to the lack of intravenous and oral contrast. However, no definite bowel wall thickening or obstruction. The appendix is reportedly surgically absent. Small fat-containing right inguinal hernia. CTA chest 04/15/18 The lung bases are not well seen. Mild atelectatic change thoracic aorta. Bibasilar parenchymal infiltrative change. Small right effusion. IMPRESSION: 1. Technically limited exam due to patient somatic and respiratory motion. 2. No evidence for a major central or first order embolus. 3. Nondiagnostic evaluation of the third order vessels of the lung bases. 4. Bibasilar infiltrative change combined with a small right effusion. Patient was evaluated by pulmonary consult service and diagnosis of Multilobar pneumonia ( Likely community acquired) Patient was treated with Rocephin and Doxycycline for acute hypoxemic respiratory failure (needing oxygen supplementation initially) secondary to pneumonia and then transitioned to renally dosed Levaquin by 04/18/18. Levofloxacin antibiotic on 04/20/18, 04/22/18, 04/24/18 as outpatient with prescription provided. Do follow up chest X ray in 2 weeks as outpatient Patient was treated with solumedrol and nebulizer treatments and then prednisone. Patient denies history of personal tobacco use (does report that in the past other people around him smoked) and no clear indication for continued steroids on discharge. Cough is better and hemoptysis from cough is resolving. Pleuritic chest pain from pneumonia History of obstructive sleep apnea on CPAP at home. Continue CPAP at home Acute kidney injury on CKD stage 3. Creatine on admission 2.11. Creatinine downtrended 1.66 Hypertension history home dose Losartan and HCTZ was held due to Acute kidney Injury however can be resumed as renal function improving Continue metoprolol Discharge Instructions Continue CPAP at home for sleep Please take one pill daily of Levofloxacin antibiotic on 04/20/18, 04/22/18, Get follow up chest X ray in 2 weeks Please follow up clinic appointments 04/20/2018 1:00 PM Denise Joseph MD Family Practice [facility] 04/30/2018 10:[address] Monroy for pulmonary clinic [address], [address] [place] [address] Vital Signs: Date Time Temp Pulse Resp B/P (MAP) Pulse Ox O2 Delivery O2 Flow Rate FiO2 04/18/18 08:30 Room Air 04/18/18 07:19 77 18 97 Room Air 04/18/18 06:53 36.4 100 20 133/64 (87) 93 Room Air 04/18/18 01:51 114 20 94 Room Air 04/18/18 00:00 Room Air 04/18/18 00:00 82 04/17/18 23:20 36.8 125 24 114/71 (85) 90 Room Air 04/17/18 20:40 88 18 121/69 (86) 93 Room Air 04/17/18 19:20 85 16 96 Room Air 04/17/18 18:00 Room Air 04/17/18 14:01 87 18 95 Nasal Cannula 2.0 Lab Results: Results Past 24 Hours Test 04/18/18 06:00 Range/Units White Blood Count 7.70 4.8-10.8 K/uL Red Blood Count 3.45 4.7-6.1 M/uL Hemoglobin 10.3 14.0-18.0 g/dL Hematocrit 30.5 42-52 % Mean Corpuscular Volume 88.4 80-100 fL Mean Corpuscular Hemoglobin 29.9 25-34 pg Mean Corpuscular Hemoglobin Concent 33.8 32-36 g/dl Platelet Count 186 130-400 K/uL Mean Platelet Volume 9.6 7.4-10.4 fL Neutrophils (%) (Auto) 71.0 % Lymphocytes (%) (Auto) 15.6 % Monocytes (%) (Auto) 11.9 % Eosinophils (%) (Auto) 0.6 % Basophils (%) (Auto) 0.0 % Neutrophils # (Auto) 5.46 1.4-6.5 K/uL Lymphocytes # (Auto) 1.20 1.2-3.4 K/uL Monocytes # (Auto) 0.92 0.11-0.59 K/uL Eosinophils # (Auto) 0.05 0-0.5 K/uL Basophils # (Auto) 0.00 0-0.2 K/uL RDW Standard Deviation 42.6 36.4-46.3 fL RDW Coefficient of Variation 13.1 11.5-14.5 % Immature Granulocyte % (Auto) 0.9 % Immature Granulocyte # (Auto) 0.07 0.00-0.02 K/uL Sodium Level 142 136-145 mmol/L Potassium Level 4.1 3.5-5.1 mmol/L Chloride Level 113 98-107 mmol/L Carbon Dioxide Level 22 21-32 mmol/L Anion Gap 8.0 3-11 mmol/L Blood Urea Nitrogen 56 7-18 mg/dl Creatinine 1.66 0.60-1.40 mg/dl Est Creatinine Clear Calc Drug Dose 33.2 ml/min Estimated GFR () 43.8 Estimated GFR (Non- 37.8 BUN/Creatinine Ratio 33.6 10-20 Random Glucose 94 70-99 mg/dl Calcium Level 8.0 8.5-10.1 mg/dl
--- NOTE | 2018-04-18 12:24 | Discharge Instructions ---
Discharge Instructions Date of Service Apr 18, 2018. Admission Reason for Admission: Respiratory Failure, Acute Discharge Discharge Diagnosis / Problem: acute respiratory failure due to multilobar pneumonia, acute kidney injury Discharge Goals Goal(s): Improve disease control Activity Recommendations Activity Limitations: per Instructions/Follow-up section . Instructions / Follow-Up Instructions / Follow-Up Hospital Course, Imaging, Discharge Plans Abdomen 04/15/[address] WITHOUT CONTRAST FINDINGS: Bibasilar consolidation. No pneumoperitoneum. No pneumatosis. There is a right total hip arthroplasty. No suspicious lytic or blastic osseous lesions. Small hiatus hernia. The distal esophagus is mildly distended and fluid-filled. There is motion artifact. The liver and spleen demonstrate punctate calcified granulomas. There is a 2.4 cm hypodense lesion within the right hepatic lobe. This likely represents a cyst. The unenhanced gallbladder, pancreas, and adrenal glands are unremarkable. There is contrast within the urinary system due to the recent chest CTA. No hydronephrosis. The 6 cm left parapelvic renal cyst. No retroperitoneal lymphadenopathy. The prostate gland is mildly enlarged. No bladder wall thickening. Suboptimal evaluation for bowel pathology due to the lack of intravenous and oral contrast. However, no definite bowel wall thickening or obstruction. The appendix is reportedly surgically absent. Small fat-containing right inguinal hernia. CTA chest 04/15/18 The lung bases are not well seen. Mild atelectatic change thoracic aorta. Bibasilar parenchymal infiltrative change. Small right effusion. IMPRESSION: 1. Technically limited exam due to patient somatic and respiratory motion. 2. No evidence for a major central or first order embolus. 3. Nondiagnostic evaluation of the third order vessels of the lung bases. 4. Bibasilar infiltrative change combined with a small right effusion. Patient was evaluated by pulmonary consult service and diagnosis of Multilobar pneumonia ( Likely community acquired) Patient was treated with Rocephin and Doxycycline for acute hypoxemic respiratory failure (needing oxygen supplementation initially) secondary to pneumonia and then transitioned to renally dosed Levaquin by 04/18/18. Levofloxacin antibiotic on 04/20/18, 04/22/18, 04/24/18 as outpatient with prescription provided. Do follow up chest X ray in 2 weeks as outpatient Patient was treated with solumedrol and nebulizer treatments and then prednisone. Patient denies history of personal tobacco use (does report that in the past other people around him smoked) and no clear indication for continued steroids on discharge. Cough is better and hemoptysis from cough is resolving. Pleuritic chest pain from pneumonia History of obstructive sleep apnea on CPAP at home. Continue CPAP at home Acute kidney injury on CKD stage 3. Creatine on admission 2.11. Creatinine downtrended 1.66 Hypertension history home dose Losartan and HCTZ was held due to Acute kidney Injury however can be resumed as renal function improving Continue metoprolol Discharge Instructions Continue CPAP at home for sleep Please take one pill daily of Levofloxacin antibiotic on 04/20/18, 04/22/18, Get follow up chest X ray in 2 weeks Please follow up clinic appointments 04/20/2018 1:00 PM Denise Joseph MD Family Practice [facility] 04/30/2018 10:[address] Monroy for pulmonary clinic [address], [address] [place] [address] Current Hospital Diet Patient's current hospital diet: AHA Diet (Heart Healthy) Discharge Diet Recommended Diet: AHA Diet (Heart Healthy) Pending Studies Studies pending at discharge: no Medical Emergencies . Who to Call and When: Medical Emergencies: If at any time you feel your situation is an emergency, please call 911 immediately. . Non-Emergent Contact Non-Emergency issues call your: Primary Care Provider, Plant An[employer] Teacher Call Non-Emergent contact if: you have any medication questions . . "Provider Documentation" section prepared by Mikael Booth. .
[2018-04-18] MEDS ORDERED: LOSARTAN/HCTZ 50-12.5 EA TAB PO ONE (12:30)
--- NOTE | 2018-04-18 12:30 | Discharge Summary ---
Discharge Summary Date of Service Apr 18, 2018. Discharge Summary Admission Date: Apr 15, 2018 at 22:04 Discharge Date: Apr 18, 2018 Discharge Disposition: Home Principal Diagnosis: acute respiratory failure with hypoxia due to multilobar pneumonia Secondary Diagnoses/Problems: acute kidney injury on chronic kidney disease stage III Medication Reconciliation New Medications: Levofloxacin (Levofloxacin) 750 Mg Tab 750 MG PO Q48H for 3 Days, #3 TAB Please take one pill daily on 04/20/18, 04/22/18, 04/24/18 Continued Medications: Aspirin (Aspirin Ec) 325 Mg Tab 325 MG PO QPM Atorvastatin (Lipitor) 40 Mg Tab 40 MG PO DAILY, TAB Doxazosin Mesylate (Cardura) 4 Mg Tab 4 MG PO QPM, TAB Felodipine (Felodipine ER) 10 Mg Tabcr 1 TAB PO DAILY Finasteride (Proscar) 5 Mg Tab 5 MG PO QPM, TAB Fluoxetine (Prozac) 10 Mg Cap 10 MG PO DAILY, CAP Fluticasone Propionate (Flovent Hfa) 120 Puffs/91204 Mcg Aero 2 PUFFS INH BID for 30 Days, #1 INHALER 3 Refills Hctz/Losartan (Hyzaar 25MG/100MG) Tab 1 TAB PO DAILY, #90 TAB Levothyroxine Sodium (Levothyroxine Sodium) 137 Mcg Tab 1 TAB PO DAILY Metoprolol Succinate (Toprol Xl) 25 Mg Tabcr 25 MG PO QPM, #30 TAB Ranitidine (Zantac) 150 Mg Tab 150 MG PO QPM, TAB Admission Information HPI (per Admitting provider): 82-year-old male who presents the ED with shortness of breath and coughing up blood. Patient reports his symptoms began 4 days ago. He reports increasing exertional shortness of breath. He reports a cough productive for mostly andujar sputum however occasionally did have some bright red blood. He reports a right- sided rib pain that is worse with a deep breath. He denies fevers and chills. No chest pain. He denies lightheadedness, dizziness, diaphoresis, syncopal events. No abdominal pain, nausea, vomiting, diarrhea. He denies any urinary symptoms. In the ED, CTA chest is negative for pulmonary embolism however is showing a bibasilar infiltrates. Patient was hypoxic on room air at 89% which improved with oxygen 3 L via nasal cannula. Labs show a mild THERESA with creatinine of 2.1 (baseline in the mid ones). Patient was given IVF, IV Zosyn, IV Zofran, IV morphine. Physical Exam (per Admitting): General Appearance: WD/WN, + mild distress Head: normocephalic, atraumatic Eyes: normal inspection, EOMI, sclerae normal ENT: hearing grossly normal, + pertinent finding (Mucous members moist) Neck: supple, no JVD, trachea midline Respiratory/Chest: + decreased breath sounds (Poor air entry noted bilaterally), + pertinent finding (Tachypnea noted) Cardiovascular: regular rate, rhythm, no edema, normal peripheral pulses Abdomen/GI: normal bowel sounds, non tender, soft, no organomegaly Extremities/Musculoskelatal: normal inspection, no calf tenderness, normal capillary refill Neurologic/Psych: no motor/sensory deficits, alert, normal mood/affect, oriented x 3 Skin: normal color, warm/dry, + pertinent finding (Chronic changes in psoriasis noted to bilateral lower extremities) Hospital Course Hospital Course, Imaging, Discharge Plans Abdomen 04/15/[address] WITHOUT CONTRAST FINDINGS: Bibasilar consolidation. No pneumoperitoneum. No pneumatosis. There is a right total hip arthroplasty. No suspicious lytic or blastic osseous lesions. Small hiatus hernia. The distal esophagus is mildly distended and fluid-filled. There is motion artifact. The liver and spleen demonstrate punctate calcified granulomas. There is a 2.4 cm hypodense lesion within the right hepatic lobe. This likely represents a cyst. The unenhanced gallbladder, pancreas, and adrenal glands are unremarkable. There is contrast within the urinary system due to the recent chest CTA. No hydronephrosis. The 6 cm left parapelvic renal cyst. No retroperitoneal lymphadenopathy. The prostate gland is mildly enlarged. No bladder wall thickening. Suboptimal evaluation for bowel pathology due to the lack of intravenous and oral contrast. However, no definite bowel wall thickening or obstruction. The appendix is reportedly surgically absent. Small fat-containing right inguinal hernia. CTA chest 04/15/18 The lung bases are not well seen. Mild atelectatic change thoracic aorta. Bibasilar parenchymal infiltrative change. Small right effusion. IMPRESSION: 1. Technically limited exam due to patient somatic and respiratory motion. 2. No evidence for a major central or first order embolus. 3. Nondiagnostic evaluation of the third order vessels of the lung bases. 4. Bibasilar infiltrative change combined with a small right effusion. Patient was evaluated by pulmonary consult service and diagnosis of Multilobar pneumonia ( Likely community acquired) Patient was treated with Rocephin and Doxycycline for acute hypoxemic respiratory failure (needing oxygen supplementation initially) secondary to pneumonia and then transitioned to renally dosed Levaquin by 04/18/18. Levofloxacin antibiotic on 04/20/18, 04/22/18, 04/24/18 as outpatient with prescription provided. Do follow up chest X ray in 2 weeks as outpatient Patient was treated with solumedrol and nebulizer treatments and then prednisone. Patient denies history of personal tobacco use (does report that in the past other people around him smoked) and no clear indication for continued steroids on discharge. Cough is better and hemoptysis from cough is resolving. Pleuritic chest pain from pneumonia History of obstructive sleep apnea on CPAP at home. Continue CPAP at home Acute kidney injury on CKD stage 3. Creatine on admission 2.11. Creatinine downtrended 1.66 Hypertension history home dose Losartan and HCTZ was held due to Acute kidney Injury however can be resumed as renal function improving Continue metoprolol Discharge Instructions Continue CPAP at home for sleep Please take one pill daily of Levofloxacin antibiotic on 04/20/18, 04/22/18, Get follow up chest X ray in 2 weeks Please follow up clinic appointments 04/20/2018 1:00 PM Denise Joseph MD Family Practice [facility] 04/30/2018 10:[address] Monroy for pulmonary clinic [address], [address] [place] [address] Total time spent on discharge = 40 minutes This includes examination of the patient, discharge planning, medication reconciliation, and communication with other providers. Discharge Instructions see above
[2018-04-18 12:47] VITALS: BP 133/64; PULSE 77; TEMP 36.4; O2SAT 97
[2018-04-18 13:01] VITALS: BP 119/60; PULSE 86
[2018-04-19] MEDS ORDERED: LOSARTAN/HCTZ 50-12.5 EA TAB PO SCH (09:00)
== END 2018-04-18 13:26 | disposition home or self-care (01) | DRG 193 ==
LOC: C.EDB 19:39 → C.MED 22:04 → ENRESERV 22:14 → C.MED 04-17 19:04
PROVIDERS: ADMIT Internal Medicine; ATTEND Hospitalist
DX: J18.9 Pneumonia, unspecified organism (principal); J96.01 Acute respiratory failure with hypoxia; N17.9 Acute kidney failure, unspecified; J44.0 Chronic obstructive pulmonary disease with (acute) lower respiratory infection; J44.1 Chronic obstructive pulmonary disease with (acute) exacerbation; J90 Pleural effusion, not elsewhere classified; R04.2 Hemoptysis; Z79.82 Long term (current) use of aspirin; Z88.8 Allergy status to other drugs, medicaments and biological substances; I12.9 Hypertensive chronic kidney disease with stage 1 through stage 4 chronic kidney disease, or unspecified chronic kidney disease; Z86.711 Personal history of pulmonary embolism; G47.33 Obstructive sleep apnea (adult) (pediatric); N18.3 Chronic kidney disease, stage 3 (moderate)

== ENCOUNTER 2023-12-22 20:42 | Inpatient (IN) ==
[2023-12-22 21:35] LABS: iSTAT Creatinine 1.5 mg/dl (0.6-1.3); iSTAT Hemoglobin 11.6 g/dl (14.0-18.0); iSTAT Ionized Calcium 1.24 mmol/l (1.12-1.32); iSTAT Potassium 4.5 mmol/L (3.3-5.0)
[2023-12-22 21:53] LABS: Basophils # (auto) 0.04 K/uL (0.00-0.20); Basophils % (auto) 0.8 %; Eosinophils # (auto) 0.13 K/uL (0.00-0.50); Eosinophils % (auto) 2.7 %; Hematocrit (blood only) 34.5 % (42.0-52.0); Hemoglobin 11.2 g/dl (14.0-18.0); Immature Granulocytes # (auto) 0.03 K/uL (0.01-0.20); Immature Granulocytes % (auto) 0.6 %; Lymphocytes % (auto) 21.1 %; Mean Corpuscular Hgb Conc 32.5 g/dL (32.0-36.0); Mean Corpuscular Volume 92.5 fL (80.0-100.0); Mean Platelet Volume 10.1 fL (9.4-12.4); Monocytes # (auto) 0.57 K/uL (0.11-0.59); Neutrophils # (auto) 2.98 K/uL (1.40-6.50); Neutrophils % (auto) 62.8 %; Platelet Count 194 K/uL (130-400); RDW Coefficient of Variation 13.4 % (11.5-14.5); RDW Standard Deviation 45.5 fL (36.4-46.3); Red Blood Count 3.73 M/uL (4.70-6.10); White Blood Count 4.75 K/ul (4.8-10.8)
[2023-12-22 21:59] LABS: Albumin Globulin Ratio 0.9 (0.9-2); Albumin Level 3.8 gm/dl (3.4-5.0); BUN Creatinine Ratio 20.7 (10-20); Bilirubin,Total 0.5 mg/dl (0.2-1.0); Creatinine Clr Calc Pharmacy 34.5 ml/min; Est GFR (African American) 47.5 ml/min; Globulin 4.1 gm/dl (2.5-4.0); Potassium 4.3 mmol/L (3.5-5.1); Total Protein 7.9 gm/dl (6.0-8.3)
--- NOTE | 2023-12-22 22:09 | Emergency Department Note ---
History of Present Illness General Chief complaint: Visual Disturbance Stated complaint: VISION SPELLS,L LEG FEELS FUNNY Time Seen by Provider: 12/22/23 21:11 History of Present Illness Provider complaint: Vision changes paresthesias 80-year-old male on Xarelto presents emergency department for vision changes and paresthesias. Patient reports his symptoms began today. Patient reports he started having numbness and tingling in his left lower extremity. He states this got better. He states he had 3 episodes today when he felt like he was having difficulty seeing out of his left eye. No falls or trauma. No fevers. No headaches. No difficulty speaking. Home Medications Medication Instructions Recorded Confirmed Type atorvastatin 40 mg tablet 40 mg PO QAM 07/09/18 02/18/22 History metoprolol succinate 25 mg 25 mg PO QPM 07/09/18 02/18/22 History tablet,extended release 24 hr finasteride 5 mg tablet 5 mg PO QAM 03/24/20 02/18/22 History amlodipine 5 mg tablet 5 mg PO QAM 03/13/21 02/18/22 History cholecalciferol (vitamin D3) 50 50 mcg PO QAM 03/13/21 02/18/22 History mcg (2,000 unit) capsule (Vitamin D3) fluticasone propionate 50 2 spray intranasal QAM 03/13/21 02/18/22 History mcg/actuation nasal spray,suspension levothyroxine 150 mcg tablet 150 mcg PO DAILYBB 03/13/21 02/18/22 History meclizine 25 mg tablet 25 mg PO TID PRN Dizziness 03/13/21 02/18/22 History uxryhrldvhcp-cannsgvs-nxovyg 1 tab PO QAM 03/13/21 02/18/22 History tablet (Multivitamin 50 Plus tablet) cetirizine 10 mg tablet 10 mg PO QAM 06/09/21 02/18/22 History hydrochlorothiazide 12.5 mg capsule 12.5 mg PO 3XWK 06/09/21 02/18/22 History terazosin 2 mg capsule 2 mg PO QAM 06/09/21 02/18/22 History triamcinolone acetonide 0.1 % 1 applic topical BID 06/09/21 02/18/22 History topical cream rivaroxaban 20 mg tablet (Xarelto) 20 mg PO QAM #90 tabs 10/20/21 02/18/22 Rx fluticasone fur. 100 mcg-umeclid 1 inh inhalation QAM #3 Inhalers 02/23/22 Rx 62.5 mcg-vilant 25 mcg inhalat.powder (Trelegy Ellipta) Allergies Allergy/AdvReac Type Severity Reaction Status Date / Time Sulfa (Sulfonamide Allergy Intermediate Hives Unverified 02/18/22 13:27 Antibiotics) SIDNEY Inhibitors Allergy Mild COUGH Verified 02/18/22 13:27 Past Med/Surg History Medical History Tachycardia Diffusion capacity of lung (dl), decreased Chronic bronchitis Diastolic CHF History of pulmonary embolism Acute bronchitis Psoriasis Osteoarthritis Chronic kidney disease STAGE 3 BPH (benign prostatic hyperplasia) GERD (gastroesophageal reflux disease) Hypothyroidism Anemia Hearing deficit Migraine Pulmonary embolism REASON FOR TAKING XARELTO Deep vein thrombosis Hypertension Hyperlipidemia Sleep apnea CPAP Chronic obstructive pulmonary disease Surgical History History of open reduction and internal fixation (ORIF) procedure RT HIP History of foot surgery RT/LEFT FOOT BONE SPURS History of colonoscopy History of appendectomy History of tooth extraction Orbital fracture FX REPAIR>LEFT EYE History of cataract surgery RT/LEFT Family History Other Family history non-contributory Social History Smoking Status: Never smoker Second Hand Exposure: Yes (IN THE PAST); Do You Dip or Chew Tobacco: No; Hx Alcohol Use: No Hx Substance Use: No Preferred Language: Sammarinese Communication Ability: Effective Nurse Emergency Room Required: No Beliefs That Will Affect Care: None Current Living Situation: Spouse Feels Safe at Home: Yes Assistive Devices: CPAP, Denture - Upper, Denture - Lower, Glasses and Hearing Aid - Bilateral Physical Exam Vital Signs Vital Signs - 24 hr 12/22/23 20:49 12/22/23 21:02 12/22/23 21:03 Temperature 36.8 C Temperature Source Temporal Artery Scan Pulse Rate 86 78 Pulse Rate [Apical] 74 Pulse Rhythm [Apical] Regular Respiratory Rate 18 18 Respiratory Effort / Characteristics Non-Labored Spontaneous Respiratory Depth Normal Respiratory Pattern Regular Blood Pressure 161/72 H Blood Pressure [Right Arm] 190/69 H Blood Pressure Mean 101 Blood Pressure Mean [Right Arm] 109 Blood Pressure Position [Right Arm] Lying Pulse Oximetry 95 95 Oxygen Delivery Method Room Air Room Air Sepsis Recent Fever Within 48 Hours No Sepsis New/Unexplained Change in Mental Status No Sepsis Action Taken by Nursing No Action Required Physical Exam GENERAL: He is oriented to person, place, and time. He appears well-developed and well-nourished. He does not appear distressed. HENT: Exam performed. - Head: Normocephalic and atraumatic. - Right Ear: External ear normal. No mastoid erythema - Left Ear: External ear normal. No mastoid erythema - Mouth/Throat: The oropharynx is clear and moist. No trismus in the jaw. No dental abscesses or uvula swelling. No oropharyngeal exudate or tonsillar abscesses. EYES: Conjunctivae and EOM are normal. Pupils are equal, round, and reactive to light. Right eye exhibits no discharge. Left eye exhibits no discharge. No scleral icterus. Funduscopic exam showed no AV nicking or papilledema bilaterally. NECK: Normal range of motion. Neck supple. No JVD present. No spinous process tenderness present. No carotid bruit present. No rigidity. No tracheal deviation and normal range of motion present. CV: Normal rate, regular rhythm, normal heart sounds and intact distal pulses. There is no peripheral edema. Palpable radial pulses bue. PULM/CHEST: Effort normal and breath sounds normal. No respiratory distress. No stridor. He has no wheezes. He has no rales. ABD: The abdomen is soft. There is no tenderness. There is no rebound, no guarding. MUSC/SKEL: Normal range of motion. There is no peripheral edema, tenderness or deformity. NEURO: He is alert and oriented to person, place, and time. He has normal strength. No cranial nerve deficit or sensory deficit. GCS eye subscore is 4. GCS verbal subscore is 5. GCS motor subscore is 6. Cerebellar tests wnl. NIHSS 0 Course Course 2110: The patient was evaluated in room A10. A complete history and physical exam was performed Cardiac monitoring: An order was placed for continuous cardiac monitoring. The monitor shows a rate of 80 with sinus rhythm interpreted by me No stroke alert called as patient is not a candidate for TNK given he is on Xarelto 2114: Patient's [id number]-[id number] creatinine is 1.5. Given this patient is a TNK candidate will not to angios given the elevated creatinine. 2234: Vital signs stable. Labs within normal limits. No neurological deficits or meningeal signs currently. Labs within normal limits. CT of the head within normal limits. Is thought that the patient is suffering from TIAs and the patient will be admitted to the [facility] team for further evaluation by neurology and MRIs. Medical Decision Making Laboratory Data Attestation: I reviewed the patient's lab results. 12/22/23 21:02 12/22/23 21:02 Lab Results 12/22/23 12/22/23 12/22/23 Range/Units 21:02 21: 21:26 WBC 4.75 L (4.8-10.8) K/ul RBC 3.73 L (4.70-6.10) M/uL Hgb 11.2 L (14.0-18.0) g/dl POC Hgb 11.6 L (14.0-18.0) g/dl Hct 34.5 L (42.0-52.0) % POC Hct 34 L (42-52) % MCV 92.5 (80.0-100.0) fL MCH 30.0 (25.0-34.0) pg MCHC 32.5 (32.0-36.0) g/dL RDW Std Deviation 45.5 (36.4-46.3) fL RDW Coeff of Jeremiah 13.4 (11.5-14.5) % Plt Count 194 (130-400) K/uL MPV 10.1 (9.4-12.4) fL Immature Gran % (Auto) 0.6 % Neut % (Auto) 62.8 % Lymph % (Auto) 21.1 % Gentry % (Auto) 12.0 % Eos % (Auto) 2.7 % Baso % (Auto) 0.8 % Neut # (Auto) 2.98 (1.40-6.50) K/uL Lymph # (Auto) 1.00 L (1.20-3.40) K/uL Gentry # (Auto) 0.57 (0.11-0.59) K/uL Eos # (Auto) 0.13 (0.00-0.50) K/uL Baso # (Auto) 0.04 (0.00-0.20) K/uL Immature Gran # (Auto) 0.03 (0.01-0.20) K/uL PT 14.4 H (9.0-12.0) Seconds INR 1.3 H (0.9-1.1) APTT 44 H (21-31) Seconds PTT Ratio 1.6 POC Sodium 142 (135-144) mmol/L Sodium 138 (136-145) mmol/L POC Potassium 4.5 (3.3-5.0) mmol/L Potassium 4.3 (3.5-5.1) mmol/L POC Chloride 110 (101-112) mmol/L Chloride 110 H (98-107) mmol/L Carbon Dioxide 23 (21-32) mmol/L POC Total CO2 24 (24-31) mmol/L Anion Gap 5 (3-11) POC Anion Gap 14.0 L (16-25) mmol/L POC BUN 27 H (7-18) mg/dl BUN 31 H (6-23) mg/dl Creatinine 1.50 H (0.6-1.4) mg/dl POC Creatinine 1.5 H (0.6-1.3) mg/dl Est Cr Clr Drug Dosing 34.5 ml/min Est GFR ( Amer) 47.5 ml/min Est GFR (Non-Af Amer) 41.0 ml/min BUN/Creatinine Ratio 20.7 H (10-20) Glucose 105 H (70-99(Fasting)) mg/dl POC Glucose (other) 102 H (70-99) mg/dl Calcium 9.0 (8.6-10.3) mg/dl POC Ioniz Calcium Aaron 1.24 (1.12-1.32) mmol/l Magnesium 2.0 (1.7-2.4) mg/dl Total Bilirubin 0.5 (0.2-1.0) mg/dl AST 25 (13-39) U/L ALT 15 (7-52) U/L Alkaline Phosphatase 72 (34-104) U/L Troponin I High Sens 7.0 (0-20) pg/ml Total Protein 7.9 (6.0-8.3) gm/dl Albumin 3.8 (3.4-5.0) gm/dl Globulin 4.1 H (2.5-4.0) gm/dl Albumin/Globulin Ratio 0.9 (0.9-2) Blood Type O Positive Antibody Screen NEGATIVE Imaging Data Attestation: I personally reviewed and interpreted this imaging study as follows: My Impression: Chest x-ray negative. Airway clear. No pneumothorax. No consolidation. Mild cardiomegaly no cephalization.. No free air under the diaphragm. No fractures of the skeletal structures. Radiologist's Impression: Head CT 12/22/23 21:20 Exam(s): CT HEAD Without Contrast EXAM: CT Head Without Intravenous Contrast CLINICAL HISTORY: Reason for exam: neuro deficit, acute stroke suspected. TECHNIQUE: Axial computed tomography images of the head/brain without intravenous contrast. CTDI is 35.65 mGy and DLP is 625.8 mGy-cm. Automated exposure control was utilized for the study. A dose lowering technique was utilized adhering to the principles of ALARA. COMPARISON: No relevant prior studies available. FINDINGS: No acute intracranial hemorrhage. No midline shift or mass effect. The territorial andujar-white matter differentiation is maintained throughout. Age-related cerebral volume loss. Periventricular and subcortical white matter hypoattenuation, consistent with chronic microangiopathy. The visualized orbits appear grossly unremarkable. The calvarium is intact. The visualized paranasal sinuses and mastoid air cells are grossly clear. IMPRESSION: No acute intracranial hemorrhage, midline shift, or mass effect. Electronically signed by: Ajay Sheppard MD 12/22/23 22:18 PM ECG Data Attestation: I personally reviewed and interpreted this ECG as follows: Rate (beats per minute): 81 Rhythm: + sinus with SA ECG Intervals/blocks: + First degree AV block, + Normal QRS and + Normal QT-c ECG ST segments: + Normal ST segments ECG Findings: + PVCs and + LVH MDM Narrative 2110: The patient was evaluated in room A10. A complete history and physical exam was performed Cardiac monitoring: An order was placed for continuous cardiac monitoring. The monitor shows a rate of 80 with sinus rhythm interpreted by me No stroke alert called as patient is not a candidate for TNK given he is on Xarelto 2114: Patient's [id number]-[id number] creatinine is 1.5. Given this patient is a TNK candidate will not to angios given the elevated creatinine. 2233: Vital signs stable. Labs within normal limits. No neurological deficits or meningeal signs currently. Labs within normal limits. CT of the head within normal limits. Is thought that the patient is suffering from TIAs and the patient will be admitted to the [place] hospitalist team for further evaluation by neurology and MRIs. Impression & Plan TIA (transient ischemic attack) Discharge Plan Visit Data Chief Complaint: Visual Disturbance Stated Complaint: VISION SPELLS,L LEG FEELS FUNNY ED Provider: Riky Nguyen Discharge Problem: TIA (transient ischemic attack) Patient Disposition: Admitted As Inpatient Forms Stand Alone Forms: [facility] Prescriptions Prescriptions: No Action Xarelto 20 mg tablet 20 mg PO QAM Qty: 90 1RF Trelegy Ellipta 100-62.5-25 mcg blister with device 1 inh inhalation QAM Qty: 3 1RF triamcinolone acetonide 0.1 % cream 1 applic topical BID finasteride 5 mg tablet 5 mg PO QAM atorvastatin 40 mg Tablet 40 mg PO QAM metoprolol succinate 25 mg Tablet Extended Release 24 Hr 25 mg PO QPM amlodipine 5 mg tablet 5 mg PO QAM meclizine 25 mg tablet 25 mg PO TID PRN (Reason: Dizziness) levothyroxine 150 mcg tablet 150 mcg PO DAILYBB Rx Instructions: take 30 min before breakfast or other meds fluticasone propionate 50 mcg/actuation spray,suspension 2 spray INTRANASAL QAM Multivitamin 50 Plus Tablet 1 tab PO QAM cholecalciferol (vitamin D3) [Vitamin D3] 50 mcg (2,000 unit) Capsule 50 mcg PO QAM hydrochlorothiazide 12.5 mg capsule 12.5 mg PO 3XWK Rx Instructions: take daily on monday,monday,monday only cetirizine 10 mg tablet 10 mg PO QAM terazosin 2 mg capsule 2 mg PO QAM Referrals Referrals: Anamaria Allison DO [Primary Care Provider] -
--- NOTE | 2023-12-22 22:19 | CT Scan Report ---
Exam(s): CT HEAD Without Contrast EXAM: CT Head Without Intravenous Contrast CLINICAL HISTORY: Reason for exam: neuro deficit, acute stroke suspected. TECHNIQUE: Axial computed tomography images of the head/brain without intravenous contrast. CTDI is 35.65 mGy and DLP is 625.8 mGy-cm. Automated exposure control was utilized for the study. A dose lowering technique was utilized adhering to the principles of ALARA. COMPARISON: No relevant prior studies available. FINDINGS: No acute intracranial hemorrhage. No midline shift or mass effect. The territorial andujar-white matter differentiation is maintained throughout. Age-related cerebral volume loss. Periventricular and subcortical white matter hypoattenuation, consistent with chronic microangiopathy. The visualized orbits appear grossly unremarkable. The calvarium is intact. The visualized paranasal sinuses and mastoid air cells are grossly clear. IMPRESSION: No acute intracranial hemorrhage, midline shift, or mass effect. Electronically signed by: Ajay Sheppard MD 12/22/23 22:18 PM
[2023-12-22 22:21] LABS: INR 1.3 (0.9-1.1); Partial Thromboplastin Ratio 1.6; Partial Thromboplastin Time 44 Seconds (21-31); Prothrombin Time 14.4 Seconds (9.0-12.0)
[2023-12-22] MEDS: ASPIRIN CHEW 324 MG PO STA (22:36)
--- NOTE | 2023-12-23 02:17 | History & Physical Report ---
Date of Service December 23, 2023 Assessment & Plan (1) TIA (transient ischemic attack): Plan: 88-year-old male with past medical history significant for hypothyroidism, secondary hyperparathyroidism, dyslipidemia, obstructive sleep apnea on CPAP, moderate persistent asthma, COPD, hypertension, a flutter, peripheral vascular disease, CKD stage III, BPH, psoriatic arthropathy, idiopathic scoliosis, history of vestibular schwannoma, general anxiety disorder, history of DVT and PE presents with strokelike symptoms. Patient states in the morning around 8:30 AM he noticed vision in both eyes blacking out and also tingliness in his left lower extremity it lasted a couple of minutes and resolved and it happened 1 more time in afternoon. And another time around 8 PM and all episodes lasted for couple of minutes. Currently symptoms completely resolved. Vision is okay. Denies any headache. Occasional dizziness. Has some runny nose. No sore throat. No cough. No difficulty swallowing. During episode speech was okay. Denies any chest pain. Denies shortness of breath. No nausea. No abdominal pain. Normal bowel and bladder movements. Currently resting comfortably and hemodynamically stable. Couple of weeks ago he had IV Lasix for 3 days because of the lower extremity edema and currently on Lasix every other day. Patient also had cough recently but that got resolved now.mary lives at home and ambulates with cane. TIA/CVA Transient blackening of bilateral vision and tingling in Left lower extremity had 3 episodes for 2 minutes each Currently asymptomatic CT head is okay Will do MRI head, echo Neuroconsult in a.m. Speech consult PT OT History of close sleep apnea On CPAP Asthma/COPD Continue home inhalers History of a flutter On metoprolol succinate and Xarelto History of DVT and PE On Xarelto History of vestibular schwannoma S/p radiation as per family Patient in due for MRI, will get it done Peripheral vascular disease On statin and Xarelto Chronic diastolic CHF Valvular heart disease Continue home diuretics Monitor for volume overload Hypertension On losartan, metoprolol succinate, terazosin, amlodipine and hydrochlorothiazide We will monitor BPH On terazosin and finasteride We will monitor Hyperlipidemia On statin CKD stage III Presented creatinine of 1.5 around baseline Will follow labs DVT prophylaxis Xarelto Disposition Telemetry Full code History of Present Illness Chief Complaint: Strokelike symptoms Primary Care Provider: Anamaria Allison, DO 88-year-old male with past medical history significant for hypothyroidism, secondary hyperparathyroidism, dyslipidemia, obstructive sleep apnea on CPAP, moderate persistent asthma, COPD, hypertension, a flutter, peripheral vascular disease, CKD stage III, BPH, psoriatic arthropathy, idiopathic scoliosis, history of vestibular schwannoma, general anxiety disorder, history of DVT and PE presents with strokelike symptoms. Patient states in the morning around 8:30 AM he noticed vision in both eyes blacking out and also tingliness in his left lower extremity it lasted a couple of minutes and resolved and it happened 1 more time in afternoon. And another time around 8 PM and all episodes lasted for couple of minutes. Currently symptoms completely resolved. Vision is okay. Denies any headache. Occasional dizziness. Has some runny nose. No sore throat. No cough. No difficulty swallowing. During episode speech was okay. Denies any chest pain. Denies shortness of breath. No nausea. No abdominal pain. Normal bowel and bladder movements. Currently resting comfortably and hemodynamically stable. Couple of weeks ago he had IV Lasix for 3 days because of the lower extremity edema and currently on Lasix every other day. Patient also had cough recently but that got resolved now.mary lives at home and ambulates with cane. Past medical history. As mentioned above Past surgical history. Colonoscopy with biopsy. Excision of sebaceous cyst. Appendectomy. Bilateral ankle joint arthroplasty. Social history. . No smoking. No alcohol use. No drug use. Family history. Brother had [place]. Father had heart disorder. Mother had a large goiter and had surgery Allergies Allergy/AdvReac Type Severity Reaction Status Date / Time Sulfa (Sulfonamide Allergy Intermediate Hives Unverified 12/22/23 23:23 Antibiotics) SIDNEY Inhibitors Allergy Mild COUGH Verified 12/22/23 23:23 Home Medications Medication Instructions Recorded Confirmed Type acetaminophen 500 mg tablet 500 mg PO AMHS 12/22/23 12/22/23 History (Tylenol Extra Strength) albuterol sulfate 90 mcg/actuation 2 puff inhalation Q6H PRN 12/22/23 12/22/23 History aerosol inhaler Shortness Of Breath Or Wheezing amlodipine 2.5 mg tablet 2.5 mg PO QAM 12/22/23 12/22/23 History atorvastatin 40 mg tablet 40 mg PO DAILY 12/22/23 12/22/23 History betamethasone dipropionate 0.05 % 1 applic topical BID 12/22/23 12/22/23 History topical cream cholecalciferol (vitamin D3) 50 50 mcg PO Q OTHER DAY 12/22/23 12/22/23 History mcg (2,000 unit) tablet (Vitamin D3) finasteride 5 mg tablet 5 mg PO DAILY 12/22/23 12/22/23 History fluticasone fur. 100 mcg-umeclid 1 ea inhalation QAM 12/22/23 12/22/23 History 62.5 mcg-vilant 25 mcg inhalat.powder (Trelegy Ellipta) fluticasone propionate 50 2 spray intranasal DAILY PRN Nasal 12/22/23 12/22/23 History mcg/actuation nasal Congestion spray,suspension (Flonase Allergy Relief) furosemide 20 mg tablet (Lasix) 0 mg PO DAILY 12/22/23 12/22/23 History hydrochlorothiazide 12.5 mg capsule 12.5 mg PO DAILY 12/22/23 12/22/23 History ipratropium 0.5 mg-albuterol 3 mg 3 ml inhalation Q6 PRN Shortness 12/22/23 12/22/23 History (2.5 mg base)/3 mL nebulization Of Breath Or Wheezing soln lanolin alcohols-mineral 1 applic topical DAILY PRN dry 12/22/23 12/22/23 History oil-w.petrolatum-ceresin topical skiin cream (Eucerin topical cream) levothyroxine 137 mcg tablet 137 mcg PO QAM 12/22/23 12/22/23 History losartan 100 mg tablet 100 mg PO DAILY 12/22/23 12/22/23 History meclizine 25 mg tablet 25 mg PO DAILY PRN dizzyness 12/22/23 12/22/23 History metoprolol succinate 25 mg 37.5 mg PO QAM 12/22/23 12/22/23 History tablet,extended release 24 hr multivitamin 1 tab PO DAILY 12/22/23 12/22/23 History potassium chloride 10 mEq 10 meq PO AMHS 12/22/23 12/22/23 History capsule,extended release rivaroxaban 15 mg tablet (Xarelto) 15 mg PO .QDINNER 12/22/23 12/22/23 History terazosin 2 mg capsule 2 mg PO DAILY 12/22/23 12/22/23 History Past Med/Surg History Medical History Tachycardia Diffusion capacity of lung (dl), decreased Chronic bronchitis Diastolic CHF History of pulmonary embolism Acute bronchitis Psoriasis Osteoarthritis Chronic kidney disease STAGE 3 BPH (benign prostatic hyperplasia) GERD (gastroesophageal reflux disease) Hypothyroidism Anemia Hearing deficit Migraine Pulmonary embolism REASON FOR TAKING XARELTO Deep vein thrombosis Hypertension Hyperlipidemia Sleep apnea CPAP Chronic obstructive pulmonary disease Surgical History History of open reduction and internal fixation (ORIF) procedure RT HIP History of foot surgery RT/LEFT FOOT BONE SPURS History of colonoscopy History of appendectomy History of tooth extraction Orbital fracture FX REPAIR>LEFT EYE History of cataract surgery RT/LEFT Family History Other Family history non-contributory Social History Smoking Status: Never smoker Second Hand Exposure: No; Do You Dip or Chew Tobacco: No; Tobacco Cessation Education Requested by Patient: No Hx Alcohol Use: No Hx Substance Use: No Preferred Language: Setswana Communication Ability: Effective Cable Television Program Director Required: No Beliefs That Will Affect Care: None Current Living Situation: Spouse Other Information That Helps Us Care for You: No Feels Safe at Home: Yes Safety Concerns: Feels Safe At This Time Assistive Devices: CPAP, Denture - Upper, Denture - Lower and Glasses Review of Systems Review of Systems: All systems reviewed & are unremarkable except as noted in HPI & below Physical Exam Physical Exam: General- Not in distress Head- atraumatic Eyes- PERRL, EOMI,vision ok in all quadrants b/l ENT- oropharynx clear Neck- supple, no JVD,carotids +2/2, no bruits appreciated Lungs- clear to auscultation no wheezing or crackles. Heart- regular rate and rhythm; systolic murmur in mitral area, no gallop Abdomen- normal bowel sounds, soft, nontender, no distension Extremities- no pretibial edema, no erythema Neuro- alert, oriented x 3; PERRL, EOMI; no facial palsy; no dysarthria; power 5/5 in upper extremities and 4/5 lower extremities; coordination of movements normal, finger nose test ok. no pronator drift. sensations intact. Skin- warm & dry Results & Data Results & Data Vital Signs (Past 12 Hours) Vital Signs Temp Pulse Pulse Resp BP BP Pulse Ox 12/23/23 01:12 82 12/23/23 01:00 87 20 144/74 H 94 12/23/23 00:34 83 20 162/77 H 94 12/22/23 23:00 75 20 155/73 H 93 12/22/23 21:03 78 12/22/23 21:02 74 18 190/69 H 95 12/22/23 20:49 36.8 C 86 18 161/72 H 95 O2 Del Method 12/23/23 01:12 12/23/23 01:00 Room Air 12/23/23 00:34 Room Air 12/22/23 23:00 Room Air 12/22/23 21:03 12/22/23 21:02 Room Air 12/22/23 20:49 Room Air Diagnostic Findings Laboratory Results WBC 4.75 K/ul (4.8-10.8) L 12/22/23 21:02 RBC 3.73 M/uL (4.70-6.10) L 12/22/23 21:02 Hgb 11.2 g/dl (14.0-18.0) L 12/22/23 21:02 POC Hgb 11.6 g/dl (14.0-18.0) L 12/22/23 21:21 Hct 34.5 % (42.0-52.0) L 12/22/23 21:02 POC Hct 34 % (42-52) L 12/22/23 21:21 MCV 92.5 fL (80.0-100.0) 12/22/23 21:02 MCH 30.0 pg (25.0-34.0) 12/22/23 21:02 MCHC 32.5 g/dL (32.0-36.0) 12/22/23 21:02 RDW Std Deviation 45.5 fL (36.4-46.3) 12/22/23 21:02 RDW Coeff of Jeremiah 13.4 % (11.5-14.5) 12/22/23 21: Plt Count 194 K/uL (130-400) 12/22/23 21:02 MPV 10.1 fL (9.4-12.4) 12/22/23 21:02 Immature Gran % (Auto) 0.6 % 12/22/23 21:02 Neut % (Auto) 62.8 % 12/22/23 21:02 Lymph % (Auto) 21.1 % 12/22/23 21:02 [place] % (Auto) 12.0 % 12/22/23 21:02 Eos % (Auto) 2.7 % 12/22/23 21:02 Baso % (Auto) 0.8 % 12/22/23 21:02 Neut # (Auto) 2.98 K/uL (1.40-6.50) 12/22/23 21: Lymph # (Auto) 1.00 K/uL (1.20-3.40) L 12/22/23 21:02 [place] # (Auto) 0.57 K/uL (0.11-0.59) 12/22/23 21:02 Eos # (Auto) 0.13 K/uL (0.00-0.50) 12/22/23 21:02 Baso # (Auto) 0.04 K/uL (0.00-0.20) 12/22/23 21:02 Immature Gran # (Auto) 0.03 K/uL (0.01-0.20) 12/22/23 21:02 PT 14.4 Seconds (9.0-12.0) H 12/22/23 21:02 INR 1.3 (0.9-1.1) H 12/22/23 21:02 APTT 44 Seconds (21-31) H 12/22/23 21:02 PTT Ratio 1.6 12/22/23 21:02 POC Sodium 142 mmol/L (135-144) 12/22/23 21:21 Sodium 138 mmol/L (136-145) 12/22/23 21:02 POC Potassium 4.5 mmol/L (3.3-5.0) 12/22/23 21: Potassium 4.3 mmol/L (3.5-5.1) 12/22/23 21:02 POC Chloride 110 mmol/L (101-112) 12/22/23 21:21 Chloride 110 mmol/L (98-107) H 12/22/23 21:02 Carbon Dioxide 23 mmol/L (21-32) 12/22/23 21:02 POC Total CO2 24 mmol/L (24-31) 12/22/23 21:21 Anion Gap 5 (3-11) 12/22/23 21:02 POC Anion Gap 14.0 mmol/L (16-25) L 12/22/23 21:21 POC BUN 27 mg/dl (7-18) H 12/22/23 21:21 BUN 31 mg/dl (6-23) H 12/22/23 21:02 Creatinine 1.50 mg/dl (0.6-1.4) H 12/22/23 21:02 POC Creatinine 1.5 mg/dl (0.6-1.3) H 12/22/23 21: Est Cr Clr Drug Dosing 34.5 ml/min 12/22/23 21:02 Est GFR ( Amer) 47.5 ml/min 12/22/23 21: Est GFR (Non-Af Amer) 41.0 ml/min 12/22/23 21: BUN/Creatinine Ratio 20.7 (10-20) H 12/22/23 21:02 Glucose 105 mg/dl (70-99(Fasting)) H 12/22/23 21:02 POC Glucose (other) 102 mg/dl (70-99) H 12/22/23 21:21 Calcium 9.0 mg/dl (8.6-10.3) 12/22/23 21: POC Ioniz Calcium Aaron 1.24 mmol/l (1.12-1.32) 12/22/23: Magnesium 2.0 mg/dl (1.7-2.4) 12/22/23 21: Total Bilirubin 0.5 mg/dl (0.2-1.0) 12/22/23 21:02 AST 25 U/L (13-39) 12/22/23 21: ALT 15 U/L (7-52) 12/22/23 21:02 Alkaline Phosphatase 72 U/L (34-104) 12/22/23 21:02 Troponin I High Sens 7.0 pg/ml (0-20) 12/22/23 21:02 Total Protein 7.9 gm/dl (6.0-8.3) 12/22/23 21: Albumin 3.8 gm/dl (3.4-5.0) 12/22/23 21:02 Globulin 4.1 gm/dl (2.5-4.0) H 12/22/23 21:02 Albumin/Globulin Ratio 0.9 (0.9-2) 12/22/23 21:02 Blood Type O Positive 12/22/23 21:26 Antibody Screen NEGATIVE 12/22/23 21:[address] 12/22/23 21:20 Exam(s): CT HEAD Without Contrast EXAM: CT Head Without Intravenous Contrast CLINICAL HISTORY: Reason for exam: neuro deficit, acute stroke suspected. TECHNIQUE: Axial computed tomography images of the head/brain without intravenous contrast. CTDI is 35.65 mGy and DLP is 625.8 mGy-cm. Automated exposure control was utilized for the study. A dose lowering technique was utilized adhering to the principles of ALARA. COMPARISON: No relevant prior studies available. FINDINGS: No acute intracranial hemorrhage. No midline shift or mass effect. The territorial andujar-white matter differentiation is maintained throughout. Age-related cerebral volume loss. Periventricular and subcortical white matter hypoattenuation, consistent with chronic microangiopathy. The visualized orbits appear grossly unremarkable. The calvarium is intact. The visualized paranasal sinuses and mastoid air cells are grossly clear. IMPRESSION: No acute intracranial hemorrhage, midline shift, or mass effect. Electronically signed by: Ajay Sheppard MD 12/22/23 22:18 PM ECG Additional Comments: ECG. Sinus rhythm with first-degree AV block with occasional PVCs at a rate of 81. Left axis deviation. Code Status & VTE Plan VTE Prophylaxis Plan VTE Prophylaxis will be ordered: Yes
[2023-12-23] MEDS ORDERED: POLYETHYLENE (MIRALAX) 17 GM PACK PO PRN (03:00)
[2023-12-23] MEDS ORDERED: PHARMACIST DISCHARGE MED REC CONSULT PRN (03:00)
[2023-12-23] MEDS ORDERED: NITROGLYCERIN SL 0.4 MG/TAB TAB SL PRN (03:00)
[2023-12-23] MEDS ORDERED: MECLIZINE HCL 25 MG TAB PO PRN (03:00)
[2023-12-23] MEDS ORDERED: FLUTICASONE PROPIONATE NA SPR 16 GM BTL PRN (03:00)
[2023-12-23] MEDS ORDERED: ALBUT/IPRATROP 3MG/0.5MG NEB 3 ML VIAL INH PRN (03:00)
[2023-12-23] MEDS ORDERED: ALBUTEROL HFA 8 GM INHALER INH PRN (03:00)
[2023-12-23] MEDS ORDERED: ACETAMINOPHEN 325 MG TAB PO PRN (03:00)
[2023-12-23] MEDS ORDERED: EUCERIN CR 120 GM JAR TOP PRN (03:59)
[2023-12-23] MEDS: LEVOTHYROXINE SODIUM 137 MCG TABLET PO SCH (06:21)
--- NOTE | 2023-12-23 08:02 | XRay Report ---
XR chest 1V portable HISTORY: 88 years-old Male neuro deficit, acute stroke suspected acute strokelike symptoms COMPARISON: 02/18/2022 TECHNIQUE: AP view of the chest FINDINGS: Atherosclerosis of the aorta. Cardiac silhouette is enlarged. Chronic interstitial coarsening without pneumothorax, pleural effusion or overt pulmonary edema. Mild bibasilar atelectasis versus scarring. Bones appear grossly intact. IMPRESSION: Cardiomegaly without acute process. ACT 112: Negative or not required by law. The above report was generated using voice recognition software. It may contain grammatical, syntax o r spelling errors. Electronically signed by: Elie Diaz M.D. 12/23/2023 8:01 AM
[2023-12-23 08:43] LABS: Basophils # (auto) 0.03 K/uL (0.00-0.20); Basophils % (auto) 0.7 %; Eosinophils # (auto) 0.11 K/uL (0.00-0.50); Eosinophils % (auto) 2.5 %; Hematocrit (blood only) 32.3 % (42.0-52.0); Hemoglobin 10.7 g/dl (14.0-18.0); Immature Granulocytes # (auto) 0.02 K/uL (0.01-0.20); Immature Granulocytes % (auto) 0.4 %; Lymphocytes # (auto) 1.02 K/uL (1.20-3.40); Lymphocytes % (auto) 22.9 %; Mean Corpuscular Hemoglobin 29.9 pg (25.0-34.0); Mean Corpuscular Hgb Conc 33.1 g/dL (32.0-36.0); Mean Corpuscular Volume 90.2 fL (80.0-100.0); Mean Platelet Volume 9.8 fL (9.4-12.4); Monocytes # (auto) 0.48 K/uL (0.11-0.59); Monocytes % (auto) 10.8 %; Neutrophils # (auto) 2.79 K/uL (1.40-6.50); Neutrophils % (auto) 62.7 %; Platelet Count 165 K/uL (130-400); RDW Coefficient of Variation 13.2 % (11.5-14.5); RDW Standard Deviation 43.6 fL (36.4-46.3); Red Blood Count 3.58 M/uL (4.70-6.10); White Blood Count 4.45 K/ul (4.8-10.8)
[2023-12-23] MEDS: LOSARTAN POTASSIUM 50 MG TAB PO SCH (08:50)
[2023-12-23] MEDS: ACETAMINOPHEN 500 MG TAB PO SCH (08:51)
[2023-12-23] MEDS: TERAZOSIN HCL 1 MG CAP PO SCH (08:51)
[2023-12-23] MEDS: POTASSIUM CHLORIDE 10 MEQ TABCR PO SCH (08:51)
[2023-12-23] MEDS: FUROSEMIDE 20 MG TAB PO SCH (08:51)
[2023-12-23] MEDS: MULTIVITAMIN TAB PO SCH (08:51)
[2023-12-23] MEDS: CHOLECALCIFEROL 25 MCG (1000 UNITS) TAB PO SCH (08:51)
[2023-12-23] MEDS: amLODIPine BESYLATE 5 MG TAB PO SCH (08:51)
[2023-12-23] MEDS: FINASTERIDE 5 MG TAB PO SCH (08:52)
[2023-12-23] MEDS: METOPROLOL SUCC 25MG EXT REL TAB PO SCH (08:52)
[2023-12-23] MEDS: ATORVASTATIN 40 MG TAB PO SCH (08:52)
[2023-12-23 08:53] LABS: BUN Creatinine Ratio 21.3 (10-20); Chol HDL Ratio 2.6 (0-5); Creatinine Clr Calc Pharmacy 40.8 ml/min; Est GFR (African American) 58.1 ml/min; Est GFR (Non-African American) 50.1 ml/min; Potassium 4.2 mmol/L (3.5-5.1)
[2023-12-23] MEDS: hydroCHLOROthiazide 25 MG TAB PO SCH (08:53)
[2023-12-23] MEDS: BETAMETHASONE DIP AUG (DIPROLENE) 0.05% CR 15 GM TUBE EXT SCH (08:56)
[2023-12-23] MEDS: UMECLIDINIUM/VILANTEROL 62.5/25MCG 7 PUFFS/INHALER INH SCH (08:57)
[2023-12-23] MEDS: FLUTICASONE FUROATE 100MCG 14 PUFFS/INHALER INH SCH (08:57)
[2023-12-23] MEDS ORDERED: NON-FORMULARY MEDICATION (Fluticasone-Umeclidin-Vilanter [Trelegy Ellipta] 100-62.5-25 mcg INH SCH (09:00)
[2023-12-23 10:04] LABS: Estimated Average Glucose 111 mg/dl; Hemoglobin A1C 5.5 % (4.5-5.6)
[2023-12-23] MEDS: GADOBUTROL 7.5ML VIAL IV ONE (10:44)
--- NOTE | 2023-12-23 11:09 | Communication Note ---
Date of Service: December 23, 2023 Patient evaluated in bedside chair prior to MRI. Reports resolution of symptoms and overall feeling well. VS stable, hypertensive in 160s prior to medications. Neuro exam with CN II-XII intact, speech with out slur, hard of hearing (at baseline reportedly) MRI ordered ECHO ordered Pending above results and neuro exam Continue home medications at this time
--- NOTE | 2023-12-23 11:42 | Neurology Consultation ---
Date of Consultation December 23, 2023 Assessment & Plan (1) Aura: A 88 year old male with Hx of migraine headache and acoustic schwanoma admited yesterday for transient visual disturbance and left leg paresthesias. Had 4 episodes lasting only 2-3 minutes and resolved on their own. MRI brain Negative for stroke. 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 Recommend MagOx 400 mg BID. Continue home Xarelto for known PVD. Ok to discharge from Neuro standpoint. Follow PRN with neuro. History of Present Illness Reason for Consultation: Vision loss, left leg paresthesias Requesting Physician: Dr. Abarca Attending Physician: Sabina Tanner MD History of Present Illness A 88 yo M w Hx of migraine headache, acoustic neuroma, and PVD on Xarelto admitted wiht 4 episodes of transient bilateral vision loss and left leg paresthesias. Had 4 brief episodes yesterday by a few hours and only lasting 2-3 minutes. Denies headache. No trauma or illness. Feels back to baseline. Denies symptoms. Allergies Allergy/AdvReac Type Severity Reaction Status Date / Time Sulfa (Sulfonamide Allergy Intermediate Hives Unverified 12/22/23 23:23 Antibiotics) SIDNEY Inhibitors Allergy Mild COUGH Verified 12/22/23 23:23 Home Medications Medication Instructions Recorded Confirmed Type acetaminophen 500 mg tablet 500 mg PO AMHS 12/22/23 12/22/23 History (Tylenol Extra Strength) albuterol sulfate 90 mcg/actuation 2 puff inhalation Q6H PRN 12/22/23 12/22/23 History aerosol inhaler Shortness Of Breath Or Wheezing amlodipine 2.5 mg tablet 2.5 mg PO QAM 12/22/23 12/22/23 History atorvastatin 40 mg tablet 40 mg PO DAILY 12/22/23 12/22/23 History betamethasone dipropionate 0.05 % 1 applic topical BID 12/22/23 12/22/23 History topical cream cholecalciferol (vitamin D3) 50 50 mcg PO Q OTHER DAY 12/22/23 12/22/23 History mcg (2,000 unit) tablet (Vitamin D3) finasteride 5 mg tablet 5 mg PO DAILY 12/22/23 12/22/23 History fluticasone fur. 100 mcg-umeclid 1 ea inhalation QAM 12/22/23 12/22/23 History 62.5 mcg-vilant 25 mcg inhalat.powder (Trelegy Ellipta) fluticasone propionate 50 2 spray intranasal DAILY PRN Nasal 12/22/23 12/22/23 History mcg/actuation nasal Congestion spray,suspension (Flonase Allergy Relief) furosemide 20 mg tablet (Lasix) 0 mg PO DAILY 12/22/23 12/22/23 History hydrochlorothiazide 12.5 mg capsule 12.5 mg PO DAILY 12/22/23 12/22/23 History ipratropium 0.5 mg-albuterol 3 mg 3 ml inhalation Q6 PRN Shortness 12/22/23 12/22/23 History (2.5 mg base)/3 mL nebulization Of Breath Or Wheezing soln lanolin alcohols-mineral 1 applic topical DAILY PRN dry 12/22/23 12/22/23 History oil-w.petrolatum-ceresin topical skiin cream (Eucerin topical cream) levothyroxine 137 mcg tablet 137 mcg PO QAM 12/22/23 12/22/23 History losartan 100 mg tablet 100 mg PO DAILY 12/22/23 12/22/23 History meclizine 25 mg tablet 25 mg PO DAILY PRN dizzyness 12/22/23 12/22/23 History metoprolol succinate 25 mg 37.5 mg PO QAM 12/22/23 12/22/23 History tablet,extended release 24 hr multivitamin 1 tab PO DAILY 12/22/23 12/22/23 History potassium chloride 10 mEq 10 meq PO AMHS 12/22/23 12/22/23 History capsule,extended release rivaroxaban 15 mg tablet (Xarelto) 15 mg PO .QDINNER 12/22/23 12/22/23 History terazosin 2 mg capsule 2 mg PO DAILY 12/22/23 12/22/23 History Patient History Medical History Tachycardia Diffusion capacity of lung (dl), decreased Chronic bronchitis Diastolic CHF History of pulmonary embolism Acute bronchitis Psoriasis Osteoarthritis Chronic kidney disease STAGE 3 BPH (benign prostatic hyperplasia) GERD (gastroesophageal reflux disease) Hypothyroidism Anemia Hearing deficit Migraine Pulmonary embolism REASON FOR TAKING XARELTO Deep vein thrombosis Hypertension Hyperlipidemia Sleep apnea CPAP Chronic obstructive pulmonary disease Surgical History History of open reduction and internal fixation (ORIF) procedure RT HIP History of foot surgery RT/LEFT FOOT BONE SPURS History of colonoscopy History of appendectomy History of tooth extraction Orbital fracture FX REPAIR>LEFT EYE History of cataract surgery RT/LEFT Family History Other Family history non-contributory Social History Smoking Status: Never smoker Second Hand Exposure: No; Do You Dip or Chew Tobacco: No; Tobacco Cessation Education Requested by Patient: No Hx Alcohol Use: No Hx Substance Use: No Preferred Language: Nepalese Communication Ability: Effective 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 Awake and alert. Following commands. Speech is normal. No involuntary movements. Oriented to place and time. No aphasia. Face symmetric. Tongue midline. EOMI. No ptosis. Results & Data Vital Signs (Past 12 Hours) Vital Signs Temp Pulse Pulse Resp BP Pulse Ox Pulse Ox 12/23/23 11:37 36.4 C L 68 20 157/64 H 96 12/23/23 09:28 69 12/23/23 07:55 36.5 C 81 20 160/80 H 95 12/23/23 03:38 12/23/23 03:20 86 22 98 12/23/23 03:02 36.4 C L 78 19 176/76 H 91 12/23/23 03:00 67 12/23/23 03:00 93 12/23/23 02:58 91 H 12/23/23 02:25 84 20 95 12/23/23 01:12 82 12/23/23 01:00 87 20 144/74 H 94 12/23/23 00:34 83 20 162/77 H 94 O2 Del Method O2 Del Method 12/23/23 11:37 Room Air 12/23/23 09:28 12/23/23 07:55 CPAP 12/23/23 03:38 Room Air 12/23/23 03:20 12/23/23 03:02 Room Air 12/23/23 03:00 12/23/23 03:00 CPAP 12/23/23 02:58 12/23/23 02:25 Room Air 12/23/23 01:12 12/23/23 01:00 Room Air 12/23/23 00:34 Room Air Diagnostic Findings [place], [place] [phone] Magnetic Resonance Report Patient: NEELAM LEVINE Admit Date: 12/23/23 MR#: [id number] Address1: [address] [facility] Acct ID:[id number] Address2: Date: 1935 [facility] Zip: [place] [address] Age: 88 Location: Sex: M Room/Bed: [facility] Att Phy: Sabina Tanner MD Diagnosis: STROKE-LIKE SYMPTOMS Sravanthi Phy: Anamaria Allison DO Service Date: 12/23/23 Fam Phy: Interpreting Phy: Elie DiazAdmit Phy: Jose Abarca MD Ordering Phy: Jose Abarca MD cc: ~ MR brain IAC wo/w con HISTORY: 88 years-old Male vestibular schwannoma right COMPARISON: 08/10/2020 TECHNIQUE: Multiplanar multisequence MRI of the internal auditory canals was obtained with and without IV contrast. FINDINGS: Heat Sealing Machine Operator localizer images demonstrate no gross extracranial abnormality. There is no restricted diffusion to suggest acute or subacute infarct. The corpus callosum, brainstem, optic chiasm, pituitary and pineal glands appear unre markable on the sagittal T1 series. Cerebellar tonsils extend approximately 8 mm below the foramen magnum, unchanged. Degenerative changes are noted involving the imaged cervical spine. There is no pathologic blooming artifact on the T2* series. There is no acute intracranial hemorrhage, midline shift, hydrocephalus or acute intra-axial mass. The left internal auditory canal, left VII and VIII cranial nerves appear normal. The cisternal portion of the left fifth cranial nerve is also unremarkable. There is decreased size of the previously described mass involving the right cerebellar pontine angle /internal auditory canal measuring 1.4 x 1.4 x 1.8 cm (image 7 series 12 image 10 series 15). This lesion previously measured 3.6 x 2.7 x 2.5 cm on the 2020 comparison. On the prior study, this lesion was described extending into the right internal auditory canal and encasing the VII and VIII cranial nerves and abutting the cisternal portion of the right fifth cranial nerve and right cerebellar tentorium. There is no significant mass effect on the adjacent structures on today's study. The cystic portions of the mass are no longer present. No additional abnormal intra-axial or extra-axial enhancement. Cerebral venous sinuses are patent. Age-related involutional changes. Moderate patchy T2/FLAIR hyperintensities throughout the white matter are suggestive of chronic microvascular ischemic disease. IMPRESSION: 1. Decreased size of the previously described right cerebral pontine angle/internal auditory canal mass suggestive of a vestibular schwannoma now measuring up to 1.8 cm, previously 3.6 cm. There is also decreased mass effect upon the right with brachium pontis and right cerebellar hemisphere. 2. No acute or subacute infarct. 3. Age-related involutional changes with chronic microvascular ischemic disease.
--- NOTE | 2023-12-23 11:57 | Magnetic Resonance Report ---
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 FINDINGS: Modern Languages Professor localizer images demonstrate no gross extracranial abnormality. There is no restricted diffusio n to suggest acute or subacute infarct. The corpus callosum, brainstem, optic chiasm, pituitary and p ineal glands appear unremarkable on the sagittal T1 series. Cerebellar tonsils extend approximately 8 mm below the foramen magnum, unchanged. Degenerative changes are noted involving the imaged cervical spine. There is no pathologic blooming artifact on the T2* series. There is no acute intracranial hemorrhage , midline shift, hydrocephalus or acute intra-axial mass. The left internal auditory canal, left VII and VIII cranial nerves appear normal. The cisternal portion of the left fifth cranial nerve is also unremarkable. There is decreased size of the previously described mass involving the right cerebellar pontine angle /internal auditory canal measuring 1.4 x 1.4 x 1.8 cm (image 7 series 12 image 10 seri es 15). This lesion previously measured 3.6 x 2.7 x 2.5 cm on the 2019 comparison. On the prior study , this lesion was described extending into the right internal auditory canal and encasing the VII and VIII cranial nerves and abutting the cisternal portion of the right fifth cranial nerve and right ce rebellar tentorium. There is no significant mass effect on the adjacent structures on today's study. The cystic portions of the mass are no longer present. No additional abnormal intra-axial or extra-axial enhancement. Cerebral venous sinuses are patent. Ag e-related involutional changes. Moderate patchy T2/FLAIR hyperintensities throughout the white matter are suggestive of chronic microvascular ischemic disease. IMPRESSION: 1. Decreased size of the previously described right cerebral pontine angle/internal auditory canal ma ss suggestive of a vestibular schwannoma now measuring up to 1.8 cm, previously 3.6 cm. There is also decreased mass effect upon the right with brachium pontis and right cerebellar hemisphere. 2. No acute or subacute infarct. 3. Age-related involutional changes with chronic microvascular ischemic disease. ACT 112: Negative or not required by law. The above report was generated using voice recognition software. It may contain grammatical, syntax o r spelling errors. Electronically signed by: Elie Diaz M.D. 12/23/2023 11:55 AM
--- NOTE | 2023-12-23 12:10 | Electrocardiogram Report ---
Test Reason : Blood Pressure : / mmHG Vent. Rate : 081 BPM Atrial Rate : 081 BPM P-R Int : 210 ms QRS Dur : 104 ms QT Int : 364 ms P-R-T Axes : 051 -42 056 degrees QTc Int : 422 ms Sinus rhythm with 1st degree A-V block with occasional Premature ventricular complexes Left axis deviation Moderate voltage criteria for LVH, may be normal variant ( R in aVL ) Abnormal ECG When compared with ECG of 18-FEB-2022 11:56, Premature ventricular complexes are now Present Confirmed by Esvin Figueroa ([id number]) on 12/23/2023 12:09:50 PM Referred By: REFERRED SELF Confirmed By:Esvin Figueroa
--- OUTSIDE RECORDS SUMMARY | 2023-12-23 14:41 | External Medical Summary | Summary of Care ---
Author Name Unknown Organization [facility] Address [address] [place] [address] Phone [phone] Care Team Providers Care Casting Wheel Operator Name Role Phone YesikaAnamaria max Jennifer CHÁVEZ Primary Care Provider Reason for Visit * Reason Comments Follow Up Knee Pain R knee * Precert (Within 30 days (routine)) - Authorized Specialty Diagnoses / Procedures Referred By Contac t Referred To Contact Orthopedics Diagnoses Unilateral primary osteoarthritis, right knee Procedures MI GEL-SYN INJECTION 0.1 MG Yrn Gutierrez MD [address] [place] [address] Yrn Gutierrez MD [address] [place] [address] Referral ID Status Reason Start Date Expiration Date V isits Requested Visits Authorized [id number] Authorized Precert 11/07/2023 11/06/2024 [id number] Encounter Details Date Type Department Care Team (Latest Contact Info) Description 12/20/2023 10:45 AM EDT Office Visit Orthopaedics [facility] [address] [place] [address] Yrn Gutierrez MD [address] [place] [address] Primary osteoarthritis of right knee* Allergies Active Allergy Reactions Criticality Noted Date Comments Edgar Inhibitors Cough 12/30/2011 Sulfa Antibiotics Unknown 01/03/2019 documented as of this encounter (statuses as of 12/20/2023) Medications Medication Sig Dispensed Refills Start Date End Date Status EQ Complete Multivit Adult 50+ Oral Tablet Take 1 Tablet by mouth 2 times a day with morning and evening meals. 0 Active Fluticasone Propionate 50 MCG/ACT Nasal Suspension (Flonase) Administer 2 Sprays into each nostril in the morning. 0 11/09/2020 Active Vitamin D 50 MCG (2000 UT) Oral Capsule Take 2,000 Units by mouth every other day. 0 Active Cetirizine HCl 10 MG Oral Tablet (ZyrTEC)Indications :Cough TAKE 1 TABLET BY MOUTH EVERY DAY 90 Tablet 3 03/07/2022 Active CPAP every night at bedtime . 0 Active Eucerin External Cream Apply topically to affected area as needed for Dry Skin. Apply to psoriasis areas 0 Active Levothyroxine Sodium 137 MCG Oral TabletIndications:H ypothyroidism, unspecified type Take 1 Tablet by mouth in the morning. (at least 30 min prior to breakfast or other meds). 100 Tablet 3 05/17/2023 Active Finasteride 5 MG Oral Tablet (Proscar) Take 1 Tablet by mouth in the morning. 90 Tablet 3 05/24/2023 Active Acetaminophen 500 MG Oral Tablet Take 1 Tablet by mouth in the morning and 1 Tablet before bedtime. 0 Active amLODIPine Besylate 2.5 MG Oral Tablet (Norvasc) Take 1 Tablet by mouth in the morning. 100 Tablet 2 06/07/2023 Active Atorvastatin Calcium 40 MG Oral Tablet (Lipitor) Take 1 Tablet by mouth in the morning. 100 Tablet 2 06/07/2023 Active hydroCHLOROthiazide 12.5 MG Oral CapsuleIndications: HTN, goal below 150/90 Take 1 Capsule by mouth once a day on Monday, Monday, and Monday only. 42 Capsule 3 06/07/2023 Active Terazosin HCl 2 MG Oral CapsuleIndications: HTN, goal below 150/90 Take 1 Capsule by mouth daily. 100 Capsule 2 06/07/2023 Active Rivaroxaban 15 MG Oral Tablet (Xarelto)Indication s:Atrial flutter, unspecified type (HCC) Take 1 Tablet by mouth daily with dinner. 100 Tablet 2 06/07/2023 Active Ipratropium-Albuter ol 0.5-2.5 (3) MG/3ML Inhalation Solution (Duoneb)Indications :Cough Inhale 3 mL via nebulizer every 6 hours as needed for Congestion or Shortness of Breath. 1080 mL 1 06/07/2023 Active Metoprolol Succinate ER 25 MG Oral Tablet Extended Release 24 Hour (toPROL XL)Indications:HTN, goal below 150/90 TAKE 1.5 TABLETS BY MOUTH DAILY IN THE MORNING. TABS MAY BE CUT, DO NOT CRUSH OR CHEW. 135 Tablet 3 07/12/2023 Active Fluticasone-Umeclid in-Vilant 100-62.5-25 MCG/ACT Aerosol Powder Breath Activated (Trelegy Ellipta)Indications :Moderate persistent asthma without complication Inhale 1 Puff by mouth in the morning. 180 Each 3 09/26/2023 Active Potassium Chloride ER 10 MEQ Oral Capsule Extended ReleaseIndications: Bilateral edema of lower extremity Take 1 Capsule by mouth in the morning and 1 Capsule before bedtime. 60 Capsule 0 11/29/2023 Active Meclizine HCl 25 MG Oral Tablet (Antivert) Take 1 Tablet by mouth daily as needed for Dizziness. 0 Active Betamethasone Dipropionate 0.05 % External Cream (Diprosone)Indicati ons:Psoriasis Apply topically to affected area 2 times a day. 180 g 1 11/30/2023 Active Losartan Potassium 100 MG Oral Tablet (Cozaar)Indications :HTN, goal below 150/90 TAKE 1 TABLET BY MOUTH EVERY DAY 90 Tablet 1 12/04/2023 Active Hospital, Clinic, or Other Facility Administered Medication Ordered Dose Route Frequency Start Date End Date Status albuterol (PROVENTIL HFA) inhaler 4 PuffIndications:Obstructive sleep apnea syndrome,Simple chronic bronchitis (HCC) 4 Puff IN Q4H PRN 05/30/2017 Active sodium hyaluronate (Gelsyn-3) 16.8 MG/2ML inj 16.8 mgIndications:Primary osteoarthritis of right knee 16.8 mg IX ONCE 12/20/2023 12/20/2023 Ended documented as of this encounter (statuses as of 12/20/2023) Active Problems Problem Noted Date Diagnosed Date Typical atrial flutter 10/09/2023 Psoriasis 10/06/2023 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 06/22/2023 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, bilateral legs 11/16/2022 COPD, group B, by GOLD 2017 classification 09/28 Other psoriasis 09/28/2022 Dyslipidemia, goal LDL below 100 09/28/2022 Age-related osteoporosis wit hout current pathological fracture 09/28/2022 Atrial flutter 11/30/2021 Vestibular schwannoma 11/30/2021 Moderate persistent asthma without complication 04/19/2021 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 07/20/2020 Overview: Per CKD protocol Hyperparathyroidism, secondary renal 11/20/2019 History of deep venous throm bosis (DVT) of distal vein of right lower extremity 11/27/2018 History of pulmonary embolism 11/27/2018 History of colon polyps 11/14/2018 HTN, goal below 150/90 04/04/2017 Hypothyroidism due to medication 11/25/2016 NE (generalized anxiety disorder) 07/28/2014 Idiopathic scoliosis 08/10/2010 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 Obstructive sleep apnea syndrome 06/01/2009 ADVANCE DIRECTIVE INFORMATION 03/07/2006 Overview: Yes-advised to bring in copy to be scanned into EMR BPH without obstruction/lower urinary tract symp toms 08/16/2005 Psoriatic arthropathy 12/06/2000 documented as of this encounter (statuses as of 12/20/2023) Resolved Problems Problem Noted Date Diagnosed Date Resolved Date Prediabetes 04/19/2021 07/27/2023 Overview: Per Prediabetes protocol Chronic kidney disease, stage 3b 01/19/2021 12/04/2023 Overview: Per CKD protocol 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 11/14/2018 07/23/2020 Overview: Per CKD protocol Hip fracture, right 10/31/2014 11/26/19 17 Overview: 10/08/14 fell on ice, ORIF HTN, goal below 130/80 09/16/201312/10 Kidney disease, chronic, sta ge III (GFR 30-59 ml/min) 08/15/2013 11/20/2018 Hand joint pain 12/07/2007 05/20/2016 Pulmonary embolus 08/16/2005 11/25/2016 BENIGN NEOPLASM LG BOWEL 08/16/200502/2019 Overview: Colonoscopy 08/23/06--adenomatous polyps--repeat 1 year Hematuria 08/16/2005 04/10/2007 Overview: ICD-10 update of inactive term terminal manager current use of ant icoagulant therapy 08/11/2005 04/10/2007 Overview: ICD-10 update of inactive term Anticoagulation management encounter 08/11/2005 04/10/2007 Thyrotoxicosis without menti on of goiter or other cause, without mention of thyrotoxic crisis or storm 07/14/2005 11/30/2009 Overview: Probable Grave's Disease Pulmonary embolus 07/12/2005 04/10/2007 Overview: First episode SPASM OF MUSCLE, LEFT NECK 12/08/1999 0 04/10/2007 CERVICAL DJD 12/08/1999 04/10/2007 Vestibular neuronitis 05/21/19992016 Chronic rhinitis 05/21/1999 11/30/2009 CHR AIRWAY OBSTRUCT NEC 05/21/199904/11 Heartburn 04/10/2007 CLASSICAL MIGRAINE WITHOU ME NTION OF INTRACTABLE MIGRAINE 11/25/2016 INSOMNIA W SLEEP APNEA 05/26 Other psoriasis and similar disorders 04/10/2007 Toxic diffuse goiter 007 Overview: Grave's Disease, TSI was elevated documented as of this encounter (statuses as of 12/20/2023) Immunizations Name Administration Dates Next Due COVID-19 mRNA, LNP-s, No Pre serve, 2-Dose Series (SputnikBot) 08/18/2021,12/01/2020,11/10/2020 Hepatitis B, 20+ yrs 07/07/1992,02/24/1992,01/21 PPD 01/05/2009,11/27/2007 Pneumococcal Conjugate Vacc, 13 Valent (Prevnar) 01/27/2015 Pneumococcal Polysaccharide PPV23 (Pneumovax) 06/02/2010 RSV Vac., Bivalent, Perfusio n F, Pf,0.5 Ml (Abrysvo) 11/30/2023 Seasonal Influenza Virus Vac cine, Unspecified Formulation 05/31/2021,05/30/2019,05/17/2018,05/29,05/20/2016,06/06/2012,06/06/2011 ,06/02/2010,06/01/2009,06/23/2008,06/11,07/07/2006,06/16/2005, 3,07/03/2002,08/28/2000,07/26/1999 Seasonal Influenza, PF, 6 M & above, IM , (FluLaval or Fluzone) 05/17/2018 Seasonal Influenza, Quadriva lent Hd (Fluzone Hd) 06/22/2023,06/01/2022,05/31/2021 Seasonal Influenza, Quadriva lent, No Preserve, IM 05/29/2017,05/20/2016,06/11/2015 Seasonal Influenza, Recombin ant, RIV4, PF, (Flublock) 06/13/2020 Seasonal Influenza, Split, I IV3, With Preserve, Inj 06/06/2012,06/06/2011,06/02/2010,06/01,06/23/2008,06/21/2007,07/07/2006 Seasonal Influenza, Trivalen t, Adjuvanted, 65+ yrs 05/30/2019 TD, Preservative Free 04/06/1999,05/12/1989 TDAP (age 10 and older)(Boostrix) 05/04/2022 TDAP (age 11 and older)(Adacel) 12/05/2011 Varicella Zoster Vaccine (Adult) 06/06/2012 Zoster Vaccine Recombinant (Shingrix) 07/01/2020 ,04/25/2020 documented as of this encounter Social History Tobacco Use Types Packs/Day Years Used Date Smoking Tobacco: Never Passive Smoke Exposure: Never Smokeless Tobacco: Never Alcohol Use Standard Drinks/Week Comments No 0 (1 standard drink = 0.6 oz pur e alcohol) PHQ-2 Answer Date Recorded PHQ Adult Total Score 0 10/06/2023 Hunger Vital Sign Answer Date Recorded Within the past 12 months, y ou worried that your food would run out before you got the money to buy more. Never true 10/06/19 24 Within the past 12 months, t he food you bought just didn't last and you didn't have money to get more. Never true 10/06/2023 Sex and Gender Information Value Date Recorded Sex Assigned at Male 11/27/2018 7:57 AM EDT Gender Identity Male 11/27/2018 7:57 AM EDT Sexual Orientation Straight 11/27/2018 7: 57 AM EDT Job Start Date Occupation Industry Not on file Not on file Not on file documented as of this encounter Progress Notes * Yrn Gutierrez MD - 12/20/2023 10:35 AM EDT Pt Name: Armani Woods Diagnosis: OA right knee. The patient is here for the THIRD of a series of Gelsyn injections. There is no sign of infection in the injected knee. A timeout was called immediately prior to the procedure, to confirm the correct patient, procedure,and site. The site was marked by the physician prior to the procedure. Site was identified: knee: Right Procedure: Under sterile fashion, a 2 ml vial of Gelsyn was injected intra- articularly into the knee. Patient tolerated this well. Assessment: OA RIGHT knee. Plan: Telephone f/u 6-8 weeks Yrn Gutierrez MD 12/05/2023 1:55 PM documented in this encounter Nursing Notes * Anamaria Chapa LPN - 12/20/2023 10:34 AM EDT -f/u R knee -THIRD Gelsyn today R knee -2nd Gelsyn on 12/12/23 -Intra-articular steroid injection performed 10/17/2023 -Pt denies pain today in R knee -Pt is unaccompanied today Renée Swann LPN documented in this encounter Plan of Treatment Upcoming Encounters Date Type Department Care Team (Late st Contact Info) Description 12/26/2023 9:30 AM EDT Office Visit [facility] [place] [id number] Kitty Frost CRNP [address] [place] [address] 01/09/2024 9:20 AM EDT Office Visit Family Practice [address] [place] [address] [address] [place] [address] Anamaria Allison DO [address] [facility] [place] [address] 01/24/2024 10:45 AM EDT Office Visit Orthopaedics [facility] [address] [facility] [place] [address] Yrn Gutierrez MD [address] [place] [address] 01/31/2024 11:30 AM EDT Telemedicine Orthopaedics [facility] [address] [place] [address] Yrn Gutierrez MD [address] [place] [address] 02/09/2024 2:00 PM EDT Office Visit Cardiology, [facility] [address] [place] [address] Kaden Francis PA-C [address] [place] [address] 04/01/2024 2:40 PM EDT Office Visit Nephrology, [facility] [address] [facility] [place], [place] [address] Ethan Gama MD [address] [facility] [place] [address] 04/08/2024 1:40 PM EDT Telemedicine Neurosurgery, [place] [address] [place], [place] [id number] Will Donaldson PA-C [address] [place] [address] 06/05/2024 10:45 AM EDT Office Visit Urology Jayesh Faith [address] [place] [address] [place] [phone] Param Haines Jr., MD [address] [place] [address] [place] [address] Health Maintenance Due Date Last Done Comments *BISPHONATE OR OTHER ACCEPTABLE MEDICATION NEEDED FOR OSTEOPOROSIS (REFER TO SMARTSET #1146) 10/01/2022 COVID-19 Vaccine ( season) 2023 08/18/2021, 12/01/2020, 11/10/2020 Albumin/Creatinine Ratio 03/16/20242 023, 05/24/2022, 11/25/2021, Additional history exists CKD PHOS USE SMARTSET 04122 03/16/2024 07/0 02/2023, 02/18/2022, 05/06/2021, Additional history exists TSH 03/16/2024 03/16/2023, 02/09, 11/25/2021, Additional history exists Depression Screening 10/06/2024 10/06/2023 CKD HGB USE SMARTSET 43736 11/27/202411/27, 11/28/2023, 03/16/2023, Additional history exists O2 ASSESSMENT COMPLETED IN PAST YEAR FOR COPD 12/17/2024 12/18/2023 DTaP,Tdap,and Td Vaccines (3 - Td or Tdap) 05/04/2032 05/04/2022, 12/05/2011, 04/06/1999, Additional history exists Hepatitis B Completed 07/07/1992, 06/12, 02/24/1992, Additional history exists Pneumococcal Vaccine: 65+ Years Completed 01/27/2015, 06/02/2010, 11/27/2001 DXA Scan Discontinued 11/23/2015, 04/11, 04/26/2007, Additional history exists Zoster Vaccines Completed 07/01/2020, 04/11, 06/06/2012 Alpha-1 Antitrypsin Completed 05/24/2022 VITAMIN D LEVEL ONCE IN A LIFETIME-USE SMARTSET# [id number] Completed 03/16/2023, 05/24/2022, 07/02/2020, Additional history exists Influenza Vaccine (FLU shot) Completed 06/22/2023, 06/01/2022, 05/31/2021, Additional history exists GARDASIL-HPV IMMUNIZATION SERIES Aged Out No longer eligible based on patient's age to complete this topic MENINGOCOCCAL (MENACTRA/MENVEO) Aged Out No longer eligible based on patient's age to complete this topic documented as of this encounter Medical Devices Not on filedocumented as of this encounter Visit Diagnoses Diagnosis Primary osteoarthritis of right knee- Primary Primary localized osteoarthrosis, lower leg documented in this encounter Administered Medications Inactive Administered Medications - up to 3 most recent administrations Medication Order MAR Action Action Date Dose Rate Site sodium hyaluronate (Gelsyn-3) 16.8 MG/2ML inj 16.8 mg 16.8 mg, Intra-Articular, ONCE, On Mon12/20/23 at 1115, For 1 dose Given 12/20/2023 10:42 AM EDT 16.8 mg Knee Right documented in this encounter Advance Directives Documents on File Type Date Recorded Patient Manager Change Expl anation Advance Directives and Living Will 04/09/2012 LIVING WILL DECLARAT ION - LIVING WILL Latest Code Status on File Code Status Date Activated Date Inactivated Comments Full Code 12/10/2007 8:45 AM 12/10/2007 3:42 PM Care Teams Casting Wheel Operator Relationship Specialty Start Date End Date Anamaria Allison DO [address] [facility], [place] [address] PCP - General Family Medicine 10/26/22 documented as of this encounter
--- OUTSIDE RECORDS SUMMARY | 2023-12-23 14:41 | External Medical Summary | Summary of Care ---
Author Name Unknown Organization [facility] Address [address] [place] [address] Phone [phone] Care Team Providers Care Senior Graduate Advisor Name Role Phone Anamaria Allison DO Primary Care Provider Reason for Visit * Reason Onset Date Comments Test Results 12/19/202312/19 Encounter Details Date Type Department Care Team (Late st Contact Info) Description 12/19/2023 Telephone Family Practice 65 [facility] [address] [place] [address] Anamaria Allison DO [address] [place] [address] Test Results (12/19) Allergies Active Allergy Reactions Criticality Noted Date [...] 4 Puff IN Q4H PRN 05/30/2017 Active documented as of this encounter (statuses as [...] CKD protocol Hip fracture, right 10/31/2014 11/26/19 Overview: 10/08/14 fell on ice, ORIF HTN, goal below 130/80 09/16/201312/10 Kidney disease, chronic, sta ge III (GFR 30-59 ml/min) 08/15/2013 11/20/2018 Hand joint pain 12/07/2007 05/20/2016 Pulmonary embolus 08/16/2005 11/25/2016 BENIGN NEOPLASM LG BOWEL 08/16/200502/2019 Overview: Colonoscopy 08/23/06--adenomatous polyps--repeat 1 year Hematuria 08/16/2005 04/10/2007 Overview: ICD-10 update of inactive term FDC current use of ant icoagulant therapy 08/11/2005 [...] mRNA, LNP-s, No Pre serve, 2-Dose Series ([employer]) 08/18/2021,12/01/2020,11/10/2020 Hepatitis B, 20+ yrs 07/07/1992,02/24/1992,01/21 PPD [...] on file documented as of this encounter Miscellaneous Notes * Telephone Encounter - Irma Diaz LPN - 12/20/2023 1:37 PM EDT Patient and returned call. Relayed information from Dr. Allison. Both parties acknowledged understanding and state they will comply. No questions at this time. * Telephone Encounter - Irma Diaz LPN - 12/20/2023 1:30 PM EDT Call placed to patient. states he is sleeping now. She will have him call when he wakes up. * Telephone Encounter - Anamaria Allison DO - 12/19/2023 8:08 PM EDT Please let pt know: His x-ray showed no fracture per radiology. There is some arthritis. Tylenol as needed for discomfort. He can ice the area. We can get him in with ortho/podiatry if persistent. His echo shows that his heart is pumping well. He does have two valves that are very leaky. This may contribute to swelling. I know he is scheduled to see cardiology in January. If his swelling increasesagain, he should let us know (was improved when I saw him earlier this week). documented in this encounter Plan of Treatment Upcoming Encounters Date Type Department Care Team (Late st Contact Info) Description 12/26/2023 9:30 AM EDT Office Visit Sleep Disorders [facility] [address] [facility] [place] [phone] Kitty Frost CRNP 132 [facility] [place] [address] 01/09/2024 9:20 AM EDT Office Visit Family Practice [address] [place] [address] 293 [place] [address] Anamaria Allison DO 293 [facility] [place] [address] 01/24/2024 10:45 AM EDT Office Visit Orthopaedics [facility] 132 [place] [address] Yrn Gutierrez MD [address] [place] [address] 01/31/2024 11:30 AM EDT Telemedicine Orthopaedics [facility] 132 [place] [address] Yrn Gutierrez MD 132 [place] [address] 02/09/2024 2:00 PM EDT Office Visit Cardiology, [facility] 132 [place] [address] Kaden Francis PA-C 132 [place] [address] 04/01/2024 2:40 PM EDT Office Visit Nephrology, [facility] [address] [place], [place] [address] Ethan Gama MD [address] [place], [place] [address] 04/08/2024 1:40 PM EDT Telemedicine Neurosurgery, [place] [address], [place] [phone] Will Donaldson PA-C [address] [place], [place] [phone] 06/05/2024 10:45 AM EDT Office Visit Urology [place] [facility] [place] [address] [place] [address] [place] [address] Param Haines Jr., MD [address] [place] [address] [place] [address] Health Maintenance Due Date Last Done Comments *BISPHONATE OR OTHER ACCEPTABLE MEDICATION NEEDED FOR OSTEOPOROSIS (REFER TO SMARTSET #1146) 10/01/2022 COVID-19 Vaccine ( season) 2023 08/18/2021, 12/01/2020, 11/10/2020 Albumin/Creatinine Ratio 03/16/2024 023, 05/24/2022, 11/25/2021, Additional history exists CKD PHOS USE SMARTSET 82320 03/16/2024 07/0 02/2023, 02/18/2022, 05/06/2021, Additional history exists TSH 03/16/2024 03/16/2023, 02/09, 11/25/2021, Additional history exists Depression Screening 10/06/2024 10/06/2023 CKD HGB USE SMARTSET 50762 11/27/202411/27, 11/28/2023, 03/16/2023, Additional history exists O2 [...] D LEVEL ONCE IN A LIFETIME-USE SMARTSET# 01413 Completed 03/16/2023, 05/24/2022, 07/02/2020, Additional history exists Influenza Vaccine (FLU shot) Completed 06/22/2023, 06/01/2022, 05/31/2021, Additional history exists GARDASIL-HPV IMMUNIZATION SERIES Aged Out No longer eligible based on patient's age to complete this topic MENINGOCOCCAL (MENACTRA/MENVEO) Aged Out No longer eligible based on patient's age to complete this topic documented as of this encounter Medical Devices Not on filedocumented as of this encounter Advance Directives Documents on File Type Date Recorded Patient Manager Field Expl anation Advance Directives and Living Will 04/09/2012 LIVING WILL DECLARAT ION - LIVING WILL Latest Code Status on File Code Status Date Activated Date Inactivated Comments Full Code 12/10/2007 8:45 AM 12/10/2007 3:42 PM Care Teams Senior Graduate Advisor Relationship Specialty Start Date End Date Anamaria Allison DO [address] [place] [address] PCP - General Family Medicine 10/26/22 documented as of this encounter
--- OUTSIDE RECORDS SUMMARY | 2023-12-23 14:41 | External Medical Summary | Summary of Care ---
Author Name Unknown Organization [facility] Address [address] [place] [address] Phone [phone] Care Team Providers Care Student Nurse Name Role Phone Anamaria Allison DO Primary Care Provider Reason for Visit * Reason Comments Acute Encounter Details Date Type Department Care Team (Late st Contact Info) Description 12/18/2023 9:40 AM EDT Office Visit Family Practice 65 [facility] [address] [place] [address] Anamaria Allison DO [address] [place] [address] Injury of right foot, initial encounter*; Chronic kidney disease, stage 3b (HCC) Allergies Active Allergy Reactions Criticality Noted Date Comments Edgar Inhibitors Cough 12/30/2011 Sulfa Antibiotics Unknown 01/03/2019 documented as of this encounter (statuses as of 12/18/2023) Medications Medication Sig Dispensed Refills Start Date [...] 2 06/07/2023 Active hydroCHLOROthiazide 12.5 MG Oral Capsule (Hydrodiuril)Indica tions:HTN, goal below 150/90 Take 1 Capsule by [...] as of this encounter (statuses as of 12/18/2023) Active Problems Problem Noted Date Diagnosed Date [...] as of this encounter (statuses as of 12/18/2023) Resolved Problems Problem Noted Date Diagnosed Date [...] 04/10/2007 Overview: ICD-10 update of inactive term intermediate current use of ant icoagulant therapy 08/11/2005 [...] as of this encounter (statuses as of 12/18/2023) Immunizations Name Administration Dates Next Due COVID-19 mRNA, LNP-s, No Pre serve, 2-Dose Series ([employer]) 08/18/2021,12/01/2020,11/10/2020 Hepatitis B, 20+ yrs 07/07/1992,02/24/1992,01/21 PPD [...] Passive Smoke Exposure: Never Smokeless Tobacco: Never Tobacco Cessation:Counseling Given: Yes Alcohol Use Standard Drinks/Week Comments No 0 [...] on file documented as of this encounter Last Filed Vital Signs Vital Sign Reading Time Taken Comments Blood Pressure 122/58 12/18/2023 10:04 AM EDT Pulse 79 12/18/2023 10:04 AM EDT Temperature 36.4 C (97.6 F) 12/18/2023 10:04 AM E DT Respiratory Rate 14 12/18/2023 10:04 AM EDT Oxygen Saturation 97% 12/18/2023 10:04 AM EDT Inhaled Oxygen Concentration - - Weight 79.8 kg (176 lb) 12/18/2023 10:04 AM EDT Height 169.5 cm (5' 6.75") 12/18/2023 10:04 AM E DT Body Mass Index 27.77 12/18/2023 10:04 AM EDT documented in this encounter Progress Notes * Anamaria Allison, - 12/18/2023 10:06 AM EDT SUBJECTIVE: Chief Complaint Patient presents with Acute HPI: Neelam Woods is a 88 year old male who presents today with complaints of right foot and ankle pain. Pt notes that he was pushing himself up in his chair and felt a pain in his foot and into his ankle. It was about a week ago. He is walking on it but it is painful. He notes that if he steps on a threshold in the arch of his foot, it will be very uncomfortable. He may have some bruising. His swelling is not worse than baseline. 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 I12.9, N18.32 Moderate persistent asthma without complication J45.40 Atrial flutter ([facility]) I48.92 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, group B, by GOLD 2017 classification ([facility]) J44.9 Other psoriasis L40.8 Dyslipidemia, goal LDL below 100 E78.5 Age-related osteoporosis without current pathological fracture M81.0 Other atherosclerosis of [place] arteries of extremities, bilateral legs ([facility]) I70.293 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 Fluticasone Propionate 50 MCG/ACT Nasal Suspension (Flonase) Administer 2 Sprays into each nostril in the morning. Vitamin D 50 MCG (2000 UT) Oral Capsule Take 2,000 Units by mouth every other day. Cetirizine HCl 10 MG Oral Tablet (ZyrTEC) TAKE 1 TABLET BY MOUTH EVERY DAY 90 Tablet 3 CPAP every night at bedtime . Eucerin External Cream Apply topically to affected area as needed for Dry Skin. Apply to psoriasis areas Levothyroxine Sodium 137 MCG Oral Tablet Take 1 Tablet by mouth in the morning. (at least 30 min prior to breakfast or other meds). 100 Tablet 3 Finasteride 5 MG Oral Tablet (Proscar) Take 1 Tablet by mouth in the morning. 90 Tablet 3 Acetaminophen 500 MG Oral Tablet Take 1 Tablet by mouth in the morning and 1 Tablet before bedtime. amLODIPine Besylate 2.5 MG Oral Tablet (Norvasc) Take 1 Tablet by mouth in the morning. 100 Tablet 2 Atorvastatin Calcium 40 MG Oral Tablet (Lipitor) Take 1 Tablet by mouth in the morning. 100 Tablet 2 hydroCHLOROthiazide 12.5 MG Oral Capsule (Hydrodiuril) Take 1 Capsule by mouth once a day on Monday, Monday, and Monday only. 42 Capsule 3 Terazosin HCl 2 MG Oral Capsule Take 1 Capsule by mouth daily. 100 Capsule 2 Rivaroxaban 15 MG Oral Tablet (Xarelto) Take 1 Tablet by mouth daily with dinner. 100 Tablet 2 Ipratropium-Albuterol 0.5-2.5 (3) MG/3ML Inhalation Solution (Duoneb) Inhale 3 mL via nebulizer every 6 hours as needed for Congestion or Shortness of Breath. 1080 mL 1 Metoprolol Succinate ER 25 MG Oral Tablet Extended Release 24 Hour (toPROL XL) TAKE 1.5 TABLETS BY MOUTH DAILY IN THE MORNING. TABS MAY BE CUT, DO NOT CRUSH OR CHEW. 135 Tablet 3 Zkaonnbmihp-Yokxoqqek-Fjxncy 100-62.5-25 MCG/ACT Aerosol Powder Breath Activated (Trelegy Ellipta) Inhale 1 Puff by mouth in the morning. 180 Each 3 Potassium Chloride ER 10 MEQ Oral Capsule Extended Release Take 1 Capsule by mouth in the morning and 1 Capsule before bedtime. 60 Capsule 0 Meclizine HCl 25 MG Oral Tablet (Antivert) Take 1 Tablet by mouth daily as needed for Dizziness. Betamethasone Dipropionate 0.05 % External Cream (Diprosone) Apply topically to affected area 2 times a day. 180 g 1 Losartan Potassium 100 MG Oral Tablet (Cozaar) TAKE 1 TABLET BY MOUTH EVERY DAY 90 Tablet 1 Current Facility-Administered Medications Medication Dose Route Frequency Provider Last Rate Last Admin albuterol (PROVENTIL HFA) inhaler 4 Puff 4 Puff Inhalation Q4H PRN Denise Joseph MD 4 Puff at 11/29/17 1145 Past Medical History: Diagnosis Date Adhesive capsulitis of shoulder right, post fall Benign neoplasm of colon 02/15/05 atypia noted Benign neoplasm of colon 10/30/2009 polyp x1,benign tissue repeat in5 years Brain tumor (HCC) COPD (chronic obstructive pulmonary disease) (HCC) Dyslipidemia, goal to be determined Hand joint pain 12/07/2007 Heartburn History of deep venous thrombosis (DVT) of distal vein of right lower extremity 11/27/2018 History of pulmonary embolism 11/27/2018 Hypertensive heart disease, severity unknown Hypertensive Cardiovasc Disease Insomnia with sleep apnea Migraine with aura Other psoriasis and similar disorders Other specified acquired hypothyroidism 06/03/2010 Pulmonary embolus (HCC) July 2005 First episode Sleep apnea, obstructive Thyrotoxicosis without mention of goiter or other cause, without mention of thyrotoxic crisis or storm 07/14/2005 Probable Grave's Disease Toxic diffuse goiter Fall 2004 Grave's Disease, TSI was elevated Past Surgical History: Procedure Laterality Date COLONOSCOPY W/ BIOPSY (RECTUM) 10/04/2007 previous biopsy site normal--repeat 2 years COLONOSCOPY W/ LESION REMOVAL, SNARE 10/30/2009 polyp x1,benign tissue repeat in5 years COLONOSCOPY, DIAGNOSTIC (RECTUM) 02/20/2015 adenomatous polyp, repeat 3 yrs/[facility] COLONOSCOPY, DIAGNOSTIC (RECTUM) 07/11/2018 adenomatous polyp, diverticulosis/[facility] COLONOSCOPY, GI REFERRAL OP 08/23/2006 adenomatous polyps--repeat 1 year FUSION OF FINGER JOINT W/AUTOGRAFT 12/10/2007 ARTHRODESIS INTERPHALANGEAL WITH AUTOGRAFT performed by ANGELES POPE at [facility] INFORMATION Left 12/04/2015 12/04/2015 excision of sebaceous cyst - office procedure DR. Kaden Blum INFORMATION orbital fracture REMOVAL OF APPENDIX 1960 Appendectomy REVISION OF ANKLE JOINT 1982 RT Ankle Joint Arthroplasty REVISION OF ANKLE JOINT 1985 LT Ankle Joint Arthroplasty Review of patient's allergies indicates: Allergen Reactions Edgar Inhibitors Cough Sulfa Antibiotics Unknown Family History Problem Relation Age of Onset Heart Disorder Father Other (Other) Father no hx of skin ca Renal Hx Mother Thyroid Disorder Mother Large goiter; had surgery Other (Other) Mother no hx of skin ca Heart Disorder Brother MO AGE 60 73 [place] 99 Gastro-intestinal disorder Brother AGE 75 [place] 99 HIATAL HERNIA Endocrine Disorder Sister ELEV CHOL Family Status Relation Status Fa at age 59 HEART Mo at age 94 RENAL Axel Alive Axel Alive Bro Bro Sis Alive Social History Tobacco Use Smoking status: Never Passive exposure: Never Smokeless tobacco: Never Substance Use Topics Alcohol use: No Vaping/E-Cigarette Use Vaping/E-Cigarette Use Never User Vaping/E-Cigarette Substances Vaping/E-Cigarette Devices REVIEW OF SYSTEMS: Review of Systems Constitutional: Negative for chills, fatigue, fever and unexpected weight change. Respiratory: Negative for cough, chest tightness, shortness of breath and wheezing. Cardiovascular: Negative for chest pain, palpitations and leg swelling. Gastrointestinal: Negative for abdominal pain, constipation, diarrhea, nausea and vomiting. Musculoskeletal: Positive for arthralgias and joint swelling. Negative for gait problem. Skin: Negative for color change, pallor and rash. OBJECTIVE: BP 122/58 (BP Site: Left Arm, BP Position: Sitting, BP Cuff Size: Regular) | Pulse 79 | Temp 36.4 C (97.6 F) (Tympanic) | Resp 14 | Ht 1.695 m (5' 6.75") | Wt 79.8 kg (176 lb) | SpO2 97% | BMI 27.77 kg/m | BSA 1.94 m PHYSICAL EXAM: Physical Exam Constitutional: General: He is not in acute distress. Appearance: He is well-developed. Cardiovascular: Rate and Rhythm: Normal rate and regular rhythm. Heart sounds: Normal heart sounds. No murmur heard. No friction rub. No gallop. Pulmonary: Effort: Pulmonary effort is normal. No respiratory distress. Breath sounds: Normal breath sounds. No wheezing or rales. Abdominal: General: Bowel sounds are normal. There is no distension. Palpations: Abdomen is soft. Tenderness: There is no abdominal tenderness. There is no guarding. Musculoskeletal: General: Tenderness (along medial ankle and extending into medial arch of foot) present. No deformity. Normal range of motion. Right lower leg: Edema present. Left lower leg: Edema present. Skin: General: Skin is warm and dry. Coloration: Skin is not pale. Findings: No erythema or rash. Neurological: Mental Status: He is alert and oriented to person, place, and time. ASSESSMENT/PLAN: (S99.921A) Injury of right foot, initial encounter (primary encounter diagnosis) Plan: XR FOOT 3 OR MORE VIEWS, XR ANKLE 3 OR MORE VIEWS X-rays reviewed. No obvious fracture. Has hardware in place from distant surgery. Will await radiology reading. Advised more supportive footwear as was using his slippers more due to swelling and difficulty tying his shoes. (N18.32) Chronic kidney disease, stage 3b (HCC) Plan: will monitor. Follow-up: as scheduled Total time today including reviewing chart before the visit, pertinent labs, imaging reports, face to face time, and documentation time was 32 minutes. Anamaria Allison DO documented in this encounter Nursing Notes * Irma Diaz LPN - 12/18/2023 10:03 AM EDT Patient here for acute visit. Reports he was pushing self back in chair and felt pain in Right leg,ankle and foot. Reports pain continues and there is swelling. documented in this encounter Plan of Treatment Upcoming Encounters Date Type Department Care Team (Late st Contact Info) Description 12/20/2023 10:45 AM EDT Office Visit Orthopaedics [facility] 132 [facility] [place] [address] Yrn Gutierrez MD [address] [place] [address] 12/26/2023 9:30 AM EDT Office Visit Sleep Disorders [facility] 132 [facility] [place] [phone] Kitty Frost CRNP [facility] [place] [address] 01/09/2024 9:20 AM EDT Office Visit Family Practice [address] [place] [address] 293 [facility] [place] [address] Anamaria Allison DO 293 [place] [address] 01/24/2024 10:45 AM EDT Office Visit Orthopaedics [facility] 132 [facility] [place] [address] Yrn Gutierrez MD [facility] [place] [address] 02/09/2024 2:00 PM EDT Office Visit Cardiology, [facility] 132 [facility] [place] [address] Kaden Francis PA-C [address] [place] [address] 04/01/2024 2:40 PM EDT Office Visit Nephrology, [facility] [address] [facility] [address] [place] [address] Ethan Gama MD 200 [facility] [place] [address] 04/08/2024 1:40 PM EDT Telemedicine Neurosurgery, [place] [address] [place] [address] Will Donaldson PA-C [address] [place], [place] [phone] 06/05/2024 10:45 AM EDT Office Visit Urology Jayesh Faith [address] [place] [address] [place] [address] Param Haines Jr., MD [address] [place] [address] [place] [address] Pending Results Name Type Priority Associated Diagnoses Date /Time XR FOOT 3 OR MORE VIEWS Medical Imaging STAT Injury of right foot, initial encounter 12/18/2023 10:39 AM EDT XR ANKLE 3 OR MORE VIEWS Medical Imaging STAT Injury of right foot, initial encounter 12/18/2023 10:39 AM EDT Health Maintenance Due Date Last Done Comments *BISPHONATE OR OTHER ACCEPTABLE MEDICATION NEEDED FOR OSTEOPOROSIS (REFER TO SMARTSET #1146) 10/01/2022 COVID-19 Vaccine ( season) 2023 08/18/2021, 12/01/2020, 11/10/2020 Postponed from 05/12/2023 (Patient Declined After Education) Albumin/Creatinine Ratio 03/16/2024 07/2 023, 05/24/2022, 11/25/2021, Additional history exists CKD PHOS USE SMARTSET 13211 03/16/2024 07/02/2023, 02/18/2022, 05/06/2021, Additional history exists TSH 03/16/2024 03/16/2023, 02/09, 11/25/2021, Additional history exists Depression Screening 10/06/2024 10/06/2023 CKD HGB USE SMARTSET 29514 11/27/202411/27, 11/28/2023, 03/16/2023, Additional history exists O2 [...] D LEVEL ONCE IN A LIFETIME-USE SMARTSET# 60575 Completed 03/16/2023, 05/24/2022, 07/02/2020, Additional history exists [...] as of this encounter Visit Diagnoses Diagnosis Injury of right foot, initial encounter- Primary Chronic kidney disease, stage 3b (HCC) documented in this encounter Advance Directives Documents on File Type Date Recorded Patient Matchbook Assembler Expl anation Advance Directives and Living Will 04/09/2012 LIVING WILL DECLARAT ION - LIVING WILL Latest Code Status on File Code Status Date Activated Date Inactivated Comments Full Code 12/10/2007 8:45 AM 12/10/2007 3:42 PM Care Teams Student Nurse Relationship Specialty Start Date End Date Anamaria Allison DO [address] [facility] [place] [address] PCP - General Family Medicine 10/26/22 documented as of this encounter
--- OUTSIDE RECORDS SUMMARY | 2023-12-23 14:41 | External Medical Summary | Summary of Care ---
Author Name Unknown Organization [facility] Address [address] [place] [address] Phone [phone] Care Team Providers Care Umbrella Cutter Name Role Phone Anamaria Allison DO Primary Care Provider [phone] Reason for Visit * Reason Comments Follow Up * Precert (Within 30 days (routine)) - Authorized Specialty Diagnoses / Procedures Referred By Giovanni t Referred To Contact Orthopedics Diagnoses Unilateral primary osteoarthritis, right knee Procedures [place] GEL-SYN INJECTION 0.1 MG Yrn Gutierrez MD [address] [place] [address] Yrn Gutierrez MD [address] [place] [address] Referral ID Status Reason Start Date Expiration Date V isits Requested Visits Authorized [id number] Authorized Precert 11/07/2023 11/06/[phone] Encounter Details Date Type Department Care Team (Latest Contact Info) Description 12/12/2023 2:00 PM EDT Office Visit Orthopaedics [facility] [address] [place] [address] Yrn Gutierrez MD [address] [place] [address] Primary osteoarthritis of right knee* Allergies Active Allergy Reactions Criticality Noted Date Comments Edgar Inhibitors Cough 12/30/2011 Sulfa Antibiotics Unknown 01/03/2019 documented as of this encounter (statuses as of 12/12/2023) Medications Medication Sig Dispensed Refills Start Date [...] of right knee 16.8 mg IX ONCE 12/12/2023 12/12/2023 Ended documented as of this encounter (statuses as of 12/12/2023) Active Problems Problem Noted Date Diagnosed Date [...] 150/90 04/04/2017 Hypothyroidism due to medication 11/25/2016 EN (generalized anxiety disorder) 07/28/2014 Idiopathic scoliosis 08/10/2010 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 Obstructive sleep apnea syndrome 06/01/2009 ADVANCE DIRECTIVE INFORMATION 03/07/2006 Overview: Yes-advised to bring in copy to be scanned into EMR BPH without obstruction/lower urinary tract symp toms 08/16/2005 Psoriatic arthropathy 12/06/2000 documented as of this encounter (statuses as of 12/12/2023) Resolved Problems Problem Noted Date Diagnosed Date [...] 04/10/2007 Overview: 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 08/11/2005 [...] as of this encounter (statuses as of 12/12/2023) Immunizations Name Administration Dates Next Due COVID-19 mRNA, LNP-s, No Pre serve, 2-Dose Series (Pfizer) 08/18/2021,12/01/2020,11/10/2020 Diptheria/Tetanus (Adult) 04/06/1999,05/12/1989 Hepatitis B Vaccine 07/07/1992,02/24/1992,1991 Hepatitis B, 20+ yrs 07/07/1992,02/24/1992,01/21 Influenza, Whole Virus 06/16/2005 OPV - Polio Virus Vaccine (Oral) 03/11/1992 PPD 01/05/2009,11/27/2007 Pneumococcal Conjugate Vacc, 13 Valent (Prevnar) 01/27/2015 Pneumococcal Polysaccharide PPV23 (Pneumovax) 06/02/2010,11/27/2001 RSV Vac., Bivalent, Perfusio n F, Pf,0.5 [...] Split, I IV3, With Preserve, Inj 06/06/2012,06/06/2011,06/02/2010,06/01,06/23/2008,06/21/2007,07/07/2006 ,07/16/2003,07/03/2002,08/28/2000,07/12 Seasonal Influenza, Trivalen t, Adjuvanted, 65+ yrs 05/30/2019 TD, Preservative Free 04/06/1999,05/12/1989 TDAP (age 10 and older)(Boostrix) 05/04/2022 TDAP (age 11 and older)(Adacel) 12/05/2011 Typhoid Vaccine Parenteral 1992,04/07/1992 Varicella Zoster Vaccine (Adult) 06/06/2012 Zoster Vaccine [...] Progress Notes * Yrn Gutierrez MD - 12/12/2023 1:53 PM EDT Pt Name: Armani Woods Diagnosis: OA right knee. The patient is here for the SECOND of a series of Gelsyn injections. There [...] this well. Assessment: OA RIGHT knee. Plan: The patient will follow up in 1 Week for reinjection. Yrn Gutierrez MD 12/05/2023 1:55 PM documented in this encounter Nursing Notes * Anamaria Chapa LPN - 12/12/2023 1:46 PM EDT Pt presents today for his SECOND of series Gelsyn in R knee -Pt denies pain today -Pt is unaccompanied today Renée Swann LPN documented in this encounter Plan of Treatment Upcoming Encounters Date Type Department Care Team (Late st Contact Info) Description 12/14/2023 2:30 PM EDT Cardiac Studies Cardiac Studies [address] [place] [address] 12/20/2023 10:45 AM EDT Office Visit Orthopaedics [facility] 132 [facility] [place] [address] Yrn Gutierrez MD [address] [place] [address] 12/26/2023 9:30 AM EDT Office Visit Sleep Disorders Ctr [facility] [address] [place] [address] Kitty Frost CRNP [address] [place] [address] 01/09/2024 9:20 AM EDT Office Visit Family Practice [address] [place] [address] [facility] [address] Anamaria Allison DO 293 [facility], [place] [address] 01/24/2024 10:45 AM EDT Office Visit Orthopaedics [facility] [address] [place] [address] Yrn Gutierrez MD [address] [place] [address] 02/09/2024 2:00 PM EDT Office Visit Cardiology, [facility] [address] [place] [address] Kaden Francis PA-C [address] [place] [address] 04/01/2024 2:40 PM EDT Office Visit Nephrology, [facility] 200 [facility] [place] [address] Ethan Gama MD 200 [facility] [place] [address] 04/08/2024 1:40 PM EDT Telemedicine Neurosurgery, [place] [address] [place], [place] [phone] Will Donaldson PA-C [address] [place], [place] [id number] 06/05/2024 10:45 AM EDT Office Visit Urology Jayesh Faith [address] [place] [address] [place] [address] Param Haines Jr., MD [address] [place] [address] [place] [address] Health Maintenance Due Date Last Done Comments *BISPHONATE OR OTHER ACCEPTABLE MEDICATION NEEDED FOR OSTEOPOROSIS (REFER TO SMARTSET #1146) 10/01/2022 COVID-19 Vaccine ( season) 2023 08/18/2021, 12/01/2020, 11/10/2020 Albumin/Creatinine Ratio 03/16/2024 023, 05/24/2022, 11/25/2021, Additional history exists CKD PHOS USE SMARTSET 90896 03/16/2024 07/0 02/2023, 02/18/2022, 05/06/2021, Additional history exists TSH 03/16/2024 03/16/2023, 02/09, 11/25/2021, Additional history exists Depression Screening 10/06/2024 10/06/2023 CKD HGB USE SMARTSET 10728 11/27/202411/27, 11/28/2023, 03/16/2023, Additional history exists O2 ASSESSMENT COMPLETED IN PAST YEAR FOR COPD 11/29/2024 11/30/2023 DTaP,Tdap,and Td Vaccines (3 - Td or Tdap) 05/04/2032 05/04/2022, 12/05/2011, 04/06/1999, Additional history exists Hepatitis B Completed 07/07/1992, 06/12, 02/24/1992, Additional history exists Pneumococcal Vaccine: 65+ Years Completed 01/27/2015, 06/02/2010, 11/27/2001 DXA Scan Discontinued 11/23/2015, 04/11, 04/26/2007, Additional history exists Zoster Vaccines Completed 07/01/2020, 04/11, 06/06/2012 Alpha-1 Antitrypsin Completed 05/24/2022 VITAMIN D LEVEL ONCE IN A LIFETIME-USE SMARTSET# 31645 Completed 03/16/2023, 05/24/2022, 07/02/2020, Additional history exists [...] 16.8 mg 16.8 mg, Intra-Articular, ONCE, On Tu12/12/23 at 1430, For 1 dose Given 12/12/2023 1:57 PM EDT 16.8 mg Knee Right documented in this encounter Advance Directives Documents on File Type Date Recorded Patient Register Clerk Expl anation Advance Directives and Living Will 04/09/2012 LIVING WILL DECLARAT ION - LIVING WILL Latest Code Status on File Code Status Date Activated Date Inactivated Comments Full Code 12/10/2007 8:45 AM 12/10/2007 3:42 PM Care Teams Umbrella Cutter Relationship Specialty Start Date End Date Anamaria Allison DO 293 [place] [address] PCP - General Family Medicine 10/26/22 documented as of this encounter
--- OUTSIDE RECORDS SUMMARY | 2023-12-23 14:41 | External Medical Summary | Summary of Care ---
Author Name Unknown Organization [facility] Address [address] [place] [address] Phone [phone] Care Team Providers Care Chip Silo Tender Name Role Phone Anamaria Allison DO Primary Care Provider Reason for Visit * Reason Comments Follow Up * Precert (Within 30 days (routine)) - Authorized Specialty Diagnoses / Procedures Referred By Giovanni t Referred To Contact Orthopedics Diagnoses Unilateral primary osteoarthritis, right knee Procedures [place] GEL-SYN INJECTION 0.1 MG Yrn Gutierrez MD [address] [place] [address] Yrn Gutierrez MD [address] [place] [address] Referral ID Status Reason Start Date Expiration Date V isits Requested Visits Authorized [id number] Authorized Precert 11/07/2023 11/06/[phone] Encounter Details Date Type Department Care Team (Latest Contact Info) Description 12/12/2023 2:00 PM EDT Office Visit Orthopaedics 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 132 [facility] [place] [address] Yrn Gutierrez MD [address] [place] [address] 12/26/2023 9:30 AM EDT Office Visit Sleep Disorders Ctr [facility] [address] [place] [address] Kitty Frost CRNP [address] [place] [address] 01/09/2024 9:20 AM EDT Office Visit Family Practice [address] [place] [address] [facility] [address] Anamaria Allison DO 293 [facility] [place], [place] [address] 01/24/2024 10:45 AM EDT Office Visit Orthopaedics [facility] [address] [place] [address] Yrn Gutierrez MD [address] [place] [address] 02/09/2024 2:00 PM EDT Office Visit Cardiology, [facility] [address] [place] [address] Kaden Francis PA-C [address] [place] [address] 04/01/2024 2:40 PM EDT Office Visit Nephrology, [facility] 200 [facility] [place] [address] Ethan Gama MD 200 [facility] [place] [address] 04/08/2024 1:40 PM EDT Telemedicine Neurosurgery, [place] [address] [place], [place] [id number] Will Donaldson PA-C [address] [place], [place] [phone] 06/05/2024 10:45 AM EDT Office Visit Urology Jayesh Faith [address] [place] [address] [place] [address] Param Haines Jr., MD [address] [place] [address] [place] [address] Health Maintenance Due Date Last Done Comments *BISPHONATE OR OTHER ACCEPTABLE MEDICATION NEEDED FOR OSTEOPOROSIS (REFER TO SMARTSET #1146) 10/01/2022 COVID-19 Vaccine ( season) 2023 08/18/2021, 12/01/2020, 11/10/2020 Albumin/Creatinine Ratio 03/16/2024 023, 05/24/2022, 11/25/2021, Additional history exists CKD PHOS USE SMARTSET 56709 03/16/2024 07/0 02/2023, 02/18/2022, 05/06/2021, Additional history exists TSH 03/16/2024 03/16/2023, 02/09, 11/25/2021, Additional history exists Depression Screening 10/06/2024 10/06/2023 CKD HGB USE SMARTSET 85527 11/27/202411/27, 11/28/2023, 03/16/2023, Additional history exists O2 [...] D LEVEL ONCE IN A LIFETIME-USE SMARTSET# 93231 Completed 03/16/2023, 05/24/2022, 07/02/2020, Additional history exists [...] Documents on File Type Date 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
--- OUTSIDE RECORDS SUMMARY | 2023-12-23 14:41 | External Medical Summary | Summary of Care ---
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 * Telephone Encounter - Anamaria Allison DO - 12/18/2023 8:58 AM EDT Pt should come now and sit and wait to be seen. I am already overbooked today so may be a bit unless there is a no show. * Telephone Encounter - Irma Diaz LPN - 12/18/2023 8:51 AM EDT Received call from and pt. Reports approx last Monday he tried to push himself back in his chair with his feet. [place] pain in right lower leg, right ankle and foot. Reports ankle is swollen and painful. Appears red, but difficult to tell d/t psoriasis. States he has been bearing weight on itbut it is very painful. Would like to be seen today, suggested pt come in and Dr. Allison will see him when able. documented in this encounter Plan of Treatment Upcoming Encounters Date Type Department Care Team (Late st Contact Info) Description 12/18/2023 9:40 AM EDT Office Visit Family Practice [facility] 293 [place] [phone] Anamaria Allison DO 293 [place] [address] 12/20/2023 10:45 AM EDT Office Visit Orthopaedics [facility] [address] [facility] [address] Yrn Gutierrez MD 132 [place] [address] 12/26/2023 9:30 AM EDT Office Visit Sleep Disorders Ctr [facility] 132 [place] [phone] Kitty Frost CRNP [facility] [place] [address] 01/09/2024 9:20 AM EDT Office Visit Family Practice [address] [place] [address] 293 [place] [address] Anamaria Allison DO 293 [place] [address] 01/24/2024 10:45 AM EDT Office Visit Orthopaedics [facility] 132 [facility] [address] Yrn Gutierrez MD 132 [place] [address] 02/09/2024 2:00 PM EDT Office Visit Cardiology, [facility] 132 [place] [address] Kaden Francis PA-C 132 [place] [address] 04/01/2024 2:40 PM EDT Office Visit Nephrology, [place] [address] [place] [address] Ethan Gama MD [address] [place], [place] [address] 04/08/2024 1:40 PM EDT Telemedicine Neurosurgery, [address] [place] [address] Will Donaldson PA-C [address] [place] [address] 06/05/2024 10:45 AM EDT Office Visit Urology [address] [place] [address] [place] [address] [place] [address] Param Haines Jr., MD [address] [place] [address] [place] [address] Health Maintenance Due Date Last Done Comments *BISPHONATE OR OTHER ACCEPTABLE MEDICATION NEEDED FOR OSTEOPOROSIS (REFER TO SMARTSET #1146) 10/01/2022 COVID-19 Vaccine ( season) 2023 08/18/2021, 12/01/2020, 11/10/2020 Albumin/Creatinine Ratio 03/16/2024 023, 05/24/2022, 11/25/2021, Additional history exists CKD PHOS USE SMARTSET 86366 03/16/2024 07/0 02/2023, 02/18/2022, 05/06/2021, Additional history exists TSH 03/16/2024 03/16/2023, 02/09, 11/25/2021, Additional history exists Depression Screening 10/06/2024 10/06/2023 CKD HGB USE SMARTSET 80273 11/27/202411/27, 11/28/2023, 03/16/2023, Additional history exists O2 [...] D LEVEL ONCE IN A LIFETIME-USE SMARTSET# 44951 Completed 03/16/2023, 05/24/2022, 07/02/2020, Additional history exists [...] Documents on File Type Date 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
--- OUTSIDE RECORDS SUMMARY | 2023-12-23 14:42 | External Medical Summary | Summary of Care ---
Author Name Unknown Organization [facility] Address [address] [place] [address] Phone [phone] Care Team Providers Care Rate Examiner Name Role Phone Anamaria Allison DO Primary Care Provider [phone] Reason for Visit * Reason Onset Date Comments Follow Up Immunization RSV Vaccine 11/30/2023 IV Therapy 11/30/2023 Encounter Details Date Type Department Care Team (Late st Contact Info) Description 11/30/2023 10:00 AM EDT Office Visit Family Practice [address] [facility] [facility], [place] [address] [place] [address] Anamaria Allison DO [address] [place] [address] Elevated brain natriuretic peptide (BNP) level*; Bilateral edema of lower extremity; Acute cough; Psoriasis; Need for RSV vaccination Allergies Active Allergy Reactions Criticality Noted Date Comments Edgar Inhibitors Cough 12/30/2011 Sulfa Antibiotics Unknown 01/03/2019 documented as of this encounter (statuses as of 12/04/2023) Medications Medication Sig Dispensed Refills Start Date End Date Status EQ Complete Multivit Adult 50+ Oral Tablet Take 1 Tablet by mouth 2 times a day with morning and evening meals. 0 Active Fluticasone Propionate 50 MCG/ACT Nasal Suspension (Flonase) Administer 2 Sprays into each nostril in the morning. 0 1 Active Vitamin D 50 MCG (2000 UT) Oral Capsule Take 2,000 Units by mouth every other day. 0 Active Cetirizine HCl 10 MG Oral Tablet (ZyrTEC)Indication s:Cough TAKE 1 TABLET BY MOUTH EVERY DAY 90 Tablet 3 2 Active CPAP every night at bedtime . 0 Active Eucerin External Cream Apply topically to affected area as needed for Dry Skin. Apply to psoriasis areas 0 Active Levothyroxine Sodium 137 MCG Oral TabletIndications: Hypothyroidism, unspecified type Take 1 Tablet by mouth in the morning. (at least 30 min prior to breakfast or other meds). 100 Tablet 3 3 Active Finasteride 5 MG Oral Tablet (Proscar) Take 1 Tablet by mouth in the morning. 90 Tablet 3 3 Active Losartan Potassium 100 MG Oral Tablet (Cozaar)Indication s:HTN, goal below 150/90 TAKE 1 TABLET BY MOUTH EVERY DAY 90 Tablet 1 3 Active Acetaminophen 500 MG Oral Tablet Take 1 Tablet by mouth in the morning and 1 Tablet before bedtime. 0 Active amLODIPine Besylate 2.5 MG Oral Tablet (Norvasc) Take 1 Tablet by mouth in the morning. 100 Tablet 2 3 Active Atorvastatin Calcium 40 MG Oral Tablet (Lipitor) Take 1 Tablet by mouth in the morning. 100 Tablet 2 3 Active hydroCHLOROthiazid e 12.5 MG Oral Capsule (Hydrodiuril)Indic ations:HTN, goal below 150/90 Take 1 Capsule by mouth once a day on Monday, Monday, and Monday only. 42 Capsule 3 3 Active Terazosin HCl 2 MG Oral CapsuleIndications :HTN, goal below 150/90 Take 1 Capsule by mouth daily. 100 Capsule 2 3 Active Rivaroxaban 15 MG Oral Tablet (Xarelto)Indicatio ns:Atrial flutter, unspecified type (HCC) Take 1 Tablet by mouth daily with dinner. 100 Tablet 2 3 Active Ipratropium-Albute rol 0.5-2.5 (3) MG/3ML Inhalation Solution (Duoneb)Indication s:Cough Inhale 3 mL via nebulizer every 6 hours as needed for Congestion or Shortness of Breath. 1080 mL 1 3 Active Metoprolol Succinate ER 25 MG Oral Tablet Extended Release 24 Hour (toPROL XL)Indications:HTN , goal below 150/90 TAKE 1.5 TABLETS BY MOUTH DAILY IN THE MORNING. TABS MAY BE CUT, DO NOT CRUSH OR CHEW. 135 Tablet 3 3 Active Fluticasone-Umecli din-Vilant 100-62.5-25 MCG/ACT Aerosol Powder Breath Activated (Trelegy Ellipta)Indication s:Moderate persistent asthma without complication Inhale 1 Puff by mouth in the morning. 180 Each 3 4 Active Potassium Chloride ER 10 MEQ Oral Capsule Extended ReleaseIndications :Bilateral edema of lower extremity Take 1 Capsule by mouth in the morning and 1 Capsule before bedtime. 60 Capsule 0 4 Active Meclizine HCl 25 MG Oral Tablet (Antivert) Take 1 Tablet by mouth daily as needed for Dizziness. 0 Active Betamethasone Dipropionate 0.05 % External Cream (Diprosone)Indicat ions:Psoriasis Apply topically to affected area 2 times a day. 180 g 1 4 Active levoFLOXacin 250 MG Oral Tablet (Levaquin)Indicati ons:Acute cough Take 1 Tablet by mouth in the morning for 7 days. until gone.. 7 Tablet 0 4 12/07/19 24 Active Triamcinolone Acetonide 0.1 % External Cream (Aristocort) APPLY TOPICALLY TO AFFECTED AREA 2 TIMES A DAY. TO AFFECTED AREA. FOR PSORIASIS 80 g 5 2 11/30/19 24 Discontinued(Me dication List Clean Up) Knee Brace/Hinged Bars MediumIndications: Chronic pain of right knee,Primary osteoarthritis of one knee, right Wear daily when active 1 Each 0 3 11/30/19 24 Discontinued(Me dication List Clean Up) Betamethasone Dipropionate 0.05 % External Cream (Diprosone)Indicat ions:Psoriasis Apply topically to affected area 2 times a day 90 g 1 4 11/30/19 24 Discontinued(Re fill) predniSONE 10 MG Oral Tablet (Deltasone)Indicat ions:Rash and nonspecific skin eruption Take 5 tabs for 2 days, 4 tabs for 2 days, 3 tabs for 2 days, 2 tabs for 2 days 1 tab for 2 days 30 Tablet 0 4 11/30/19 24 Discontinued(En d of Procedure) Cefdinir 300 MG Oral Capsule (Omnicef)Indicatio ns:COPD exacerbation (HCC) Take 1 Capsule by mouth in the morning and 1 Capsule before bedtime. Do all this for 7 days. For 10 days.. 14 Capsule 0 4 11/30/19 24 Discontinued Benzonatate 100 MG Oral CapsuleIndications :COPD exacerbation (HCC) Take 1 Capsule by mouth 3 times a day as needed for Cough. 30 Capsule 1 4 11/30/19 24 Discontinued Ciprofloxacin HCl 0.3 % Ophthalmic Solution (Ciloxan)Indicatio ns:Acute bacterial conjunctivitis of both eyes Instill 1 Drop into both eyes in the morning and 1 Drop at noon and 1 Drop in the evening and 1 Drop before bedtime. Do all this for 7 days. 10 mL 0 4 11/30/19 24 Discontinued Abrysvo 120 MCG/0.5ML Intramuscular Solution Reconstituted (RSV Pre-Fusion F A&B Vac [facility])Indications:N eed for RSV vaccination Inject 0.5 mL into a large muscle once for 1 dose. 1 Each 0 4 12/01/19 24 Hospital, Clinic, or Other Facility Administered Medication Ordered Dose Route Frequency Start Date End Date Status albuterol (PROVENTIL HFA) inhaler 4 PuffIndications:Obstructi ve sleep apnea syndrome,Simple chronic bronchitis (HCC) 4 Puff IN Q4H PRN 05/30/2017 Active Furosemide (Lasix) inj 60 mgIndications:Elevated brain natriuretic peptide (BNP) level,Bilateral edema of lower extremity 60 mg IV PUSH ONCE 11/30/2023 11/30/2023 Ended documented as of this encounter (statuses as of 12/04/2023) Active Problems Problem Noted Date Diagnosed Date [...] as of this encounter (statuses as of 12/04/2023) Resolved Problems Problem Noted Date Diagnosed Date [...] 04/10/2007 Overview: ICD-10 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 of 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 of ant icoagulant therapy 08/11/2005 [...] as of this encounter (statuses as of 12/04/2023) Immunizations Name Administration Dates Next Due COVID-19 mRNA, LNP-s, No Pre serve, 2-Dose Series ([employer]) 08/18/2021,12/01/2020,11/10/2020 Hepatitis B, 20+ yrs 07/07/1992,02/24/1992,01/21 PPD [...] Sign Reading Time Taken Comments Blood Pressure 138/62 11/30/2023 9:58 AM EDT Pulse 81 11/30/2023 9:58 AM EDT Temperature 36.6 C (97.8 F) 11/30/2023 9:58 AM ED T Respiratory Rate 16 11/30/2023 9:58 AM EDT Oxygen Saturation 97% 11/30/2023 9:58 AM EDT Inhaled Oxygen Concentration - - Weight 80.8 kg (178 lb 3.2 oz) 11/30/2023 9:58 A M EDT Height 169.5 cm (5' 6.75") 11/30/2023 9:58 AM ED T Body Mass Index 28.12 11/30/2023 9:58 AM EDT documented in this encounter Patient Instructions * Patient Instructions* Rhonda Young RPh - 11/30/2023 10:15 AM EDT Possible side effects of RSV vaccine, (Respiratory Syncytial Virus), are usually mild and can include: Soreness, swelling or redness at injection site Low grade fever Body aches or joint pain Headache Nausea or diarrhea You may use a fever/pain reducing medication for these symptoms. LET YOUR DOCTOR KNOW IMMEDIATELY IF YOU HAVE DIFFICULTY BREATHING OR SWALLOWING, EXPERIENCE ITCHINGOF FEET OR HANDS, HAVE SWELLING OF EYES, FACE OR INSIDE OF NOSE. documented in this encounter Progress Notes * Denise Bhatt RN - 11/30/2023 10:41 AM EDT IV ADMINISTRATION DOCUMENTATION After identifying patient by name and date of , IV catheter was inserted into Right Anticubital Vein with a positive blood return noted. Infusion start time 9:55 AM IV Ayaan inserted IV Ayaan: Discontinued Educated patient on signs and symptoms to report. Instructed to call clinic with any problems or concerns regarding IV therapy. See Documentation Flowsheet for additional information. Denise Bhatt RN IV PROTOCOL Date: 11/30/2023 [address] Site: [place] IV Protocol: IV Diuresis IV Placement: right antecubital IV Gauge: 22 Medication: Other Lasix 60 mg Disposition: Home Follow Up: Phone follow up tomorrow 12/01/23 Notes: to monitor and call with any problems or concerns. * Anamaria Allison DO - 11/30/2023 10:17 AM EDT SUBJECTIVE: Chief Complaint Patient presents with Follow Up Immunization RSV Vaccine HPI: Armani Woods is a 88 year old male who presents today for recheck. Pt notes that he really urinated a lot from the lasix yesterday. He is down about 4lbs from yesterday. He notes that his breathing is feeling ok. He continues to cough. It did not keep him up as much as it had been. He has not been taking his zyrtec. He has been doing flonase. 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 Apply to psoriasis areas Levothyroxine Sodium 137 MCG Oral Tablet Take 1 Tablet by mouth in the morning. (at least 30 min prior to breakfast or other meds). 100 Tablet 3 Finasteride 5 MG Oral Tablet (Proscar) Take 1 Tablet by mouth in the morning. 90 Tablet 3 Losartan Potassium 100 MG Oral Tablet (Cozaar) TAKE 1 TABLET BY MOUTH EVERY DAY 90 Tablet 1 Acetaminophen 500 MG Oral Tablet Take 1 [...] NOT CRUSH OR CHEW. 135 Tablet 3 Rdeqrhxfbvy-Afebsoqak-Nnsipu 100-62.5-25 MCG/ACT Aerosol Powder Breath Activated (Trelegy Ellipta) Inhale 1 Puff by mouth in the morning. 180 Each 3 Betamethasone Dipropionate 0.05 % External Cream (Diprosone) Apply topically to affected area 2 times a day 90 g 1 Potassium Chloride ER 10 MEQ Oral Capsule Extended Release Take 1 Capsule by mouth in the morning and 1 Capsule before bedtime. 60 Capsule 0 Meclizine HCl 25 MG Oral Tablet (Antivert) Take 1 Tablet by mouth daily as needed for Dizziness. Abrysvo 120 MCG/0.5ML Intramuscular Solution Reconstituted (RSV Pre-Fusion F A&B Vac [facility]) Inject 0.5 mL into a large muscle once for 1 dose. 1 Each 0 CPAP every night at bedtime . Current Facility-Administered Medications Medication Dose Route Frequency [...] DIAGNOSTIC (RECTUM) 02/20/2015 adenomatous polyp, repeat 3 yrs/[facility] COLONOSCOPY, DIAGNOSTIC (RECTUM) 07/11/2018 adenomatous polyp, diverticulosis/[facility] COLONOSCOPY, GI REFERRAL OP 08/23/2006 adenomatous polyps--repeat 1 year FUSION OF FINGER JOINT W/AUTOGRAFT 12/10/2007 ARTHRODESIS INTERPHALANGEAL WITH AUTOGRAFT performed by ANGELES POPE at [facility] INFORMATION Left 12/04/2015 12/04/2015 excision of sebaceous cyst - office procedure DR. Kaden Blum INFORMATION orbital fracture REMOVAL OF APPENDIX 1959 Appendectomy REVISION OF ANKLE JOINT 1982 RT [...] hx of skin ca Heart Disorder Brother PR AGE 60 73 IN 99 Gastro-intestinal disorder Brother AGE 75 IN 99 HIATAL HERNIA Endocrine Disorder Sister ELEV CHOL Family Status Relation Status Fa at age 59 HEART Mo at age 94 RENAL Aexl Alive Axel Alive Bro Bro Sis Alive [...] pain, constipation, diarrhea, nausea and vomiting. Musculoskeletal: Negative for arthralgias, gait problem and joint swelling. Skin: Negative for color change, pallor and rash. OBJECTIVE: BP 138/62 (BP Site: Left Arm, BP Position: Sitting, BP Cuff Size: Regular) | Pulse 81 | Temp 36.6 C (97.8 F) (Tympanic) | Resp 16 | Ht 1.695 m (5' 6.75") | Wt 80.8 kg (178 lb 3.2 oz) | SpO2 97% |BMI 28.12 kg/m | BSA 1.95 m PHYSICAL EXAM: Physical Exam Constitutional: General: [...] tenderness. There is no guarding. Musculoskeletal: General: No tenderness or deformity. Normal range of motion. Skin: General: Skin is warm and dry. Coloration: Skin is not pale. Findings: No erythema or rash. Neurological: Mental Status: He is alert and oriented to person, place, and time. ASSESSMENT/PLAN: (R79.89) Elevated brain natriuretic peptide (BNP) level (primary encounter diagnosis) (R60.0) Bilateral edema of lower extremity Plan: Furosemide (Lasix) inj 60 mg, SALINE AYAAN, SALINE AYAAN, DISCONTINUE Pt will get another dose of IV lasix today. Will see how this works for him. Echo ordered and scheduled. (R05.1) Acute cough Plan: levoFLOXacin 250 MG Oral Tablet (Levaquin) Will start levaquin given ongoing nature of cough. (L40.9) Psoriasis Plan: Betamethasone Dipropionate 0.05 % External Cream (Diprosone) Refill sent. (Z29.11) Need for RSV vaccination Plan: RSV VAC, BIVALENT, PERF, PF, 0.5 ML, 60YRS AND ABOVE, Abrysvo 120 MCG/0.5ML Intramuscular Solution Reconstituted (RSV Pre-Fusion F A&B Vac [facility]) Vaccine given. See admin record.. Follow-up: 1 day Total time today including reviewing chart before the visit, pertinent labs, imaging reports, face to face time, and documentation time was 42 minutes. Anamaria Allison DO documented in this encounter Nursing Notes * Irma Diaz LPN - 11/30/2023 9:56 AM EDT Patient here for follow up visit. Reports decreased edema BLE's. States he continues to have the cough. Slept better last night. States he did have increased urination yesterday after OV, states voiding without difficulty today. States he did have SOB last night - states not having any at this time. Did use nebulizer today. documented in this encounter Plan of Treatment Upcoming Encounters Date Type Department Care Team (Late st Contact Info) Description 12/04/2023 10:00 AM EDT Scheduled Telephone Family Practice 65 [facility] 293 [facility] [place] [address] [place], Nurse [facility] [address] [place] [address] Arrived 12/05/2023 2:00 PM EDT Office Visit [facility] [address] [place] [address] Yrn Gutierrez MD [address] [place] [address] 12/12/2023 2:00 PM EDT Office Visit [facility] [address] [place] [address] Yrn Gutierrez MD [address] [place] [address] 12/14/2023 2:30 PM EDT Cardiac Studies Cardiac Studies [address] [place] [address] 12/20/2023 10:45 AM EDT Office Visit Orthopaedics [facility] 132 [facility] [place] [address] Yrn Gutierrez MD [address] [place] [address] 12/26/2023 9:30 AM EDT Office Visit Sleep Disorders Ctr [facility] 132 [facility] [place] [address] Kitty Frost CRNP [address] [place] [place] [address] 01/09/2024 9:20 AM EDT Office Visit Family Practice [address] [place] [address] 293 [facility] [place] [address] Anamaria Allison DO 293 [facility] [place] [address] 01/24/2024 10:45 AM EDT Office Visit Orthopaedics [facility] 132 [facility] [place] [address] Yrn Gutierrez MD 132 [facility] [place] [address] 02/09/2024 2:00 PM EDT Office Visit Cardiology, [facility] 132 [facility] [place] [address] Kaden Francis PA-C [facility] [place] [address] 04/01/2024 2:40 PM EDT Office Visit Nephrology, [facility] [address] [place] [address] Ethan Gama MD [address] [place] [address] 04/08/2024 1:40 PM EDT Telemedicine Neurosurgery, [place] [address] [place] [address] Will Donaldson PA-C [address] [place] [address] 06/05/2024 10:45 AM EDT Office Visit Urology Jayesh Faith [address] [place] [address] [place] [address] Param Haines Jr., MD [address] [place] [address] [place] [address] Scheduled Orders Name Type Priority Associated Diagnoses Orde r Schedule SALINE AYAAN Procedures Routine Elevated brain natriuretic peptide (BNP) level Bilateral edema of lower extremity Ordered: 11/30/2023 SALINE AYAAN, DISCONTINUE Procedures Routine Elevated brain natriuretic peptide (BNP) level Bilateral edema of lower extremity Ordered: 11/30/2023 Health Maintenance Due Date Last Done Comments *BISPHONATE OR OTHER ACCEPTABLE MEDICATION NEEDED FOR OSTEOPOROSIS (REFER TO SMARTSET #1146) 10/01/2022 COVID-19 Vaccine ( season) 2023 08/18/2021, 12/01/2020, 11/10/2020 Albumin/Creatinine Ratio 03/16/2024 072 023, 05/24/2022, 11/25/2021, Additional history exists CKD PHOS USE SMARTSET 47762 03/16/2024 07/0 02/2023, 02/18/2022, 05/06/2021, Additional history exists TSH 03/16/2024 03/16/2023, 02/09, 11/25/2021, Additional history exists Depression Screening 10/06/2024 10/06/2023 CKD HGB USE SMARTSET 46567 11/27/202411/27, 11/28/2023, 03/16/2023, Additional history exists O2 [...] D LEVEL ONCE IN A LIFETIME-USE SMARTSET# 49214 Completed 03/16/2023, 05/24/2022, 07/02/2020, Additional history exists [...] as of this encounter Visit Diagnoses Diagnosis Elevated brain natriuretic peptide (BNP) level- Primary Other nonspecific findings on examination of blood Bilateral edema of lower extremity Edema Acute cough Psoriasis Other psoriasis Need for RSV vaccination Need for prophylactic vaccination and inoculation against respiratory syncytial virus documented in this encounter Administered Medications Inactive Administered Medications - up to 3 most recent administrations Medication Order MAR Action Action Date Dose Rate Site Furosemide (Lasix) inj 60 mg 60 mg, IV Push, ONCE, On Joyce 11/30/23 at 1115, For 1 dose Given 11/30/2023 3:34 PM EDT 60 mg Antecubital Right documented in this encounter Advance Directives Documents on File Type Date Recorded Patient Corporate Planning Manager Expl anation Advance Directives and Living Will 04/09/2012 LIVING WILL DECLARAT ION - LIVING WILL Latest Code Status on File Code Status Date Activated Date Inactivated Comments Full Code 12/10/2007 8:45 AM 12/10/2007 3:42 PM Care Teams Rate Examiner Relationship Specialty Start Date End Date Anamaria Allison DO [address] [place] [address] PCP - General Family Medicine 10/26/22 documented as of this encounter
--- OUTSIDE RECORDS SUMMARY | 2023-12-23 14:42 | External Medical Summary | Summary of Care ---
Author Name Unknown Organization [facility] Address [address] [place] [address] Phone [phone] Care Team Providers Care Port Drier Name Role Phone Anamaria Allison DO Primary Care Provider [phone] Reason for Visit * Reason Comments Outpatient Testing Encounter Details Date Type Department Care Team (Late st Contact Info) Description 12/04/2023 9:10 AM EDT Laboratory Laboratory, [place] [address] [place] [phone] [facility] [address] [place] [address] Bilateral edema of lower extremity Allergies Active Allergy Reactions Criticality Noted Date [...] the morning. 90 Tablet 3 05/24/2023 Active Losartan Potassium 100 MG Oral Tablet (Cozaar)Indications :HTN, goal below 150/90 TAKE 1 TABLET BY MOUTH EVERY DAY 90 Tablet 1 06/06/2023 Active Acetaminophen 500 MG Oral Tablet Take [...] a day. 180 g 1 11/30/2023 Active levoFLOXacin 250 MG Oral Tablet (Levaquin)Indicatio ns:Acute cough Take 1 Tablet by mouth in the morning for 7 days. until gone.. 7 Tablet 0 11/30/2023 12/07/2023 Active Hospital, Clinic, or Other Facility Administered [...] mRNA, LNP-s, No Pre serve, 2-Dose Series ([employer]) 08/18/2021,12/01/2020,11/10/2020 Hepatitis B, 20+ yrs 07/07/1992,02/24/1992,01/21 PPD [...] on file documented as of this encounter Plan of Treatment Upcoming Encounters Date Type Department Care Team (Late st Contact Info) Description 12/04/2023 10:00 AM EDT Scheduled Telephone Family Practice 65 [facility] [place] 293 [facility], [place] [id number] [place], Nurse [facility] [address] [place] [address] Arrived 12/05/2023 2:00 PM EDT Office Visit [facility] [address] [place] [address] Yrn Gutierrez MD [address] [place] [address] 12/12/2023 2:00 PM EDT Office Visit [facility] [address] [place] [address] Yrn Gutierrez MD [address] [place] [address] 12/14/2023 2:30 PM EDT Cardiac Studies Cardiac Studies [address] [place] [address] 12/20/2023 10:45 AM EDT Office Visit [facility] [address] [place] [address] Yrn Gutierrez MD [address] [place] [address] 12/26/2023 9:30 AM EDT Office Visit Sleep Disorders Ctr [facility] 132 [place] [phone] Kitty Frost CRNP 132 [facility] [place] [address] 01/09/2024 9:20 AM EDT Office Visit Family Practice [address] [place] [address] 293 [facility] [place] [address] Anamaria Allison DO 293 [place] [address] 01/24/2024 10:45 AM EDT Office Visit Orthopaedics [facility] 132 [facility] [place] [address] Yrn Gutierrez MD 132 [place] [address] 02/09/2024 2:00 PM EDT Office Visit [facility], [facility] [place] [address] Kaden Francis PA-C [facility] [address] 04/01/2024 2:40 PM EDT Office Visit Nephrology, [facility] 200 [facility] [place] [address] Ethan Gama MD 200 [facility] [place] [address] 04/08/2024 1:40 PM EDT Telemedicine Neurosurgery, [place] [address] [place], [place] [phone] Will Donaldson PA-C [address] [place], [place] [phone] 06/05/2024 10:45 AM EDT Office Visit Urology Jayesh Faith [address] [place] [address] [place] [address] Param Haines Jr., MD [address] [facility] [address] [place] [address] Pending Results Name Type Priority Associated Diagnoses Date /Time BASIC METABOLIC PANEL Lab Routine Bilateral edema of lower extremity 12/04/2023 9:13 AM EDT Health Maintenance Due Date Last Done Comments *BISPHONATE OR OTHER ACCEPTABLE MEDICATION NEEDED FOR OSTEOPOROSIS (REFER TO SMARTSET #1146) 10/01/2022 COVID-19 Vaccine ( season) 2023 08/18/2021, 12/01/2020, 11/10/2020 Albumin/Creatinine Ratio 03/16/2024 023, 05/24/2022, 11/25/2021, Additional history exists CKD PHOS USE SMARTSET 82441 03/16/2024 07/02/2023, 02/18/2022, 05/06/2021, Additional history exists TSH 03/16/2024 03/16/2023, 02/09, 11/25/2021, Additional history exists Depression Screening 10/06/2024 10/06/2023 CKD HGB USE SMARTSET 71179 11/27/202411/27, 11/28/2023, 03/16/2023, Additional history exists O2 [...] D LEVEL ONCE IN A LIFETIME-USE SMARTSET# [id number] Completed 03/16/2023, 05/24/2022, 07/02/2020, Additional history exists [...] as of this encounter Visit Diagnoses Diagnosis Bilateral edema of lower extremity Edema documented in this encounter Advance Directives Documents on File Type Date Recorded 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
--- OUTSIDE RECORDS SUMMARY | 2023-12-23 14:42 | External Medical Summary | Summary of Care ---
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 08/11/2005 [...] mRNA, LNP-s, No Pre serve, 2-Dose Series ([employer]) 08/18/2021,12/01/2020,11/10/2020 Hepatitis B, 20+ yrs 07/07/1992,02/24/1992,01/21 PPD [...] Care Team (Late st Contact Info) Description 12/12/2023 2:00 PM EDT Office Visit Orthopaedics [facility] [address] [facility] [place] [address] Yrn Gutierrez MD [address] [place] [address] 12/14/2023 2:30 PM EDT Cardiac Studies Cardiac Studies [address] [place] [address] 12/20/2023 10:45 AM EDT Office Visit Orthopaedics [facility] [address] [place] [address] Yrn Gutierrez MD [address] [place] [address] 12/26/2023 9:30 AM EDT Office Visit Sleep Disorders [facility] [address] [place] [phone] Kitty Frost CRNP [address] [place] [address] 01/09/2024 9:20 AM EDT Office Visit Family Practice [address] [place] [address] 293 [place] [address] Anamaria Allison DO 293 [facility] [place] [address] 01/24/2024 10:45 AM EDT Office Visit Orthopaedics [facility] [address] [place] [address] Yrn Gutierrez MD [address] [place] [address] 02/09/2024 2:00 PM EDT Office Visit Cardiology, [facility] [address] [place] [address] Kaden Francis PA-C [address] [place] [address] 04/01/2024 2:40 PM EDT Office Visit Nephrology, [facility] 200 [facility] [place], [place] [address] Ethan Gama MD 200 [facility] [place], [place] [address] 04/08/2024 1:40 PM EDT Telemedicine Neurosurgery, [place] [address] [place] [address] Will Donaldson PA-C [address] [place] [address] 06/05/2024 10:45 AM EDT Office Visit Urology Jayesh Faith [address] [place] [address] [place] [id number] Param Haines Jr., MD [address] [place] [address] [place] [address] Health Maintenance Due Date Last Done Comments *BISPHONATE OR OTHER ACCEPTABLE MEDICATION NEEDED FOR OSTEOPOROSIS (REFER TO SMARTSET #1146) 10/01/2022 COVID-19 Vaccine ( season) 2023 08/18/2021, 12/01/2020, 11/10/2020 Albumin/Creatinine Ratio 03/16/2024 023, 05/24/2022, 11/25/2021, Additional history exists CKD PHOS USE SMARTSET 38952 03/16/2024 07/0 02/2023, 02/18/2022, 05/06/2021, Additional history exists TSH 03/16/2024 03/16/2023, 02/09, 11/25/2021, Additional history exists Depression Screening 10/06/2024 10/06/2023 CKD HGB USE SMARTSET 26828 11/27/202411/27, 11/28/2023, 03/16/2023, Additional history exists O2 [...] D LEVEL ONCE IN A LIFETIME-USE SMARTSET# 95866 Completed 03/16/2023, 05/24/2022, 07/02/2020, Additional history exists [...] Documents on File Type Date Recorded 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
--- OUTSIDE RECORDS SUMMARY | 2023-12-23 14:42 | External Medical Summary | Summary of Care ---
Author Name Unknown Organization [facility] Address [address] [place] [address] Phone [phone] Care Team Providers Care Proof Reader Name Role Phone YesikawinterAnamaria DO Primary Care Provider Reason for Visit * Reason Onset Date Comments Nurse Documentation 12/04/202312/03 Encounter Details Date Type Department Care Team (Late st Contact Info) Description 12/04/2023 10:00 AM EDT Scheduled Telephone Family Practice [address] [phone] College, Nurse [facility] Prac [address] [address] Arrived Allergies Active Allergy Reactions Criticality Noted Date [...] 04/10/2007 Overview: ICD-10 update of inactive term 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 Seems to be overall improved. No change for now. * Telephone Encounter - Irma Diaz LPN - 12/04/2023 10:14 AM EDT Nurse phone call placed to patient. No answer. Weight today - 178 lb Right leg does have edema. Left leg looks normal. Cough - has spells, but improved. Dyspneic with exertion. Taking HCTZ daily. [facility]. documented in this encounter Plan of Treatment Upcoming Encounters Date Type Department Care Team (Late st Contact Info) Description 12/05/2023 2:00 PM EDT Office Visit Orthopaedics [facility] [address] [place] [address] Yrn Gutierrez MD 132 [place] [address] 12/12/2023 2:00 PM EDT Office Visit Orthopaedics [facility] [address] [place] [address] Yrn Gutierrez MD [address] [place] [address] 12/14/2023 2:30 PM EDT Cardiac Studies Cardiac Studies [address] [place] [address] 12/20/2023 10:45 AM EDT Office Visit Orthopaedics [facility] [address] [place] [address] Yrn Gutierrez MD [address] [place] [address] 12/26/2023 9:30 AM EDT Office Visit Sleep Disorders Ctr [facility] [address] [place] [address] Kitty Frost CRNP [address] [place] [address] 01/09/2024 9:20 AM EDT Office Visit Family Practice [address] [place] [address] 293 [place] [address] Anamaria Allison DO 293 [place] [address] 01/24/2024 10:45 AM EDT Office Visit Orthopaedics [facility] [address] [place] [address] Yrn Gutierrez MD [address] [place] [address] 02/09/2024 2:00 PM EDT Office Visit Cardiology, [facility] [address] [place] [address] Kaden Francis PAKash [address] [place] [address] 04/01/2024 2:40 PM EDT Office Visit Nephrology, [facility] [place] [address] Ethan Gama MD [facility] [place] [address] 04/08/2024 1:40 PM EDT Telemedicine Neurosurgery, [place] [address] [place], [place] [phone] Will Donaldson PA-C [address] [place], [place] [phone] 06/05/2024 10:45 AM EDT Office Visit Urology Jayesh Faith [address] [place] [address] [place] [address] Param Haines Jr., MD [address] [place] [address] [place] [phone] Health Maintenance Due Date Last Done Comments *BISPHONATE OR OTHER ACCEPTABLE MEDICATION NEEDED FOR OSTEOPOROSIS (REFER TO SMARTSET #1146) 10/01/2022 COVID-19 Vaccine ( season) 2023 08/18/2021, 12/01/2020, 11/10/2020 Albumin/Creatinine Ratio 03/16/2024 023, 05/24/2022, 11/25/2021, Additional history exists CKD PHOS USE SMARTSET 52618 03/16/2024 07/0 02/2023, 02/18/2022, 05/06/2021, Additional history exists TSH 03/16/2024 03/16/2023, 02/09, 11/25/2021, Additional history exists Depression Screening 10/06/2024 10/06/2023 CKD HGB USE SMARTSET 89125 11/27/202411/27, 11/28/2023, 03/16/2023, Additional history exists O2 [...] D LEVEL ONCE IN A LIFETIME-USE SMARTSET# 49721 Completed 03/16/2023, 05/24/2022, 07/02/2020, Additional history exists [...] Documents on File Type Date Recorded 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
--- OUTSIDE RECORDS SUMMARY | 2023-12-23 14:42 | External Medical Summary | Summary of Care ---
Author Name Unknown Organization [facility] Address [address] [place] [address] Phone [phone] Care Team Providers Care Laundry Tech Name Role Phone YesikawinterAnamaria DO Primary Care Provider Reason for Visit * Reason Onset Date Comments Nurse Documentation 12/04/202312/03 Encounter Details Date Type Department Care Team (Late st Contact Info) Description 12/04/2023 10:00 AM EDT Scheduled Telephone Family Practice [address] [phone] College, Nurse [facility] Prac [address] [address] Arrived Allergies Active Allergy Reactions Criticality Noted [...] 04/10/2007 Overview: 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 documented in this encounter Plan of Treatment Upcoming Encounters Date Type Department Care Team (Late st Contact Info) Description 12/05/2023 2:00 PM EDT Office Visit Orthopaedics [facility] [address] [place] [address] Yrn Gutierrez MD 132 [place] [address] 12/12/2023 2:00 PM EDT Office Visit Orthopaedics [facility] [address] [place] [address] Yrn Gutierrez MD [address] [place] [address] 12/14/2023 2:30 PM EDT Cardiac Studies Cardiac Studies [address] [place] [address] 12/20/2023 10:45 AM EDT Office Visit Orthopaedics [facility] [address] [place] [address] Yrn Gutierrez MD [address] [place] [address] 12/26/2023 9:30 AM EDT Office Visit Sleep Disorders Ctr [facility] [address] [place] [phone] Kitty Frost CRNP [address] [place] [address] 01/09/2024 9:20 AM EDT Office Visit Family Practice [address] [place] [address] 293 [place] [address] Anamaria Allison DO 293 [place] [address] 01/24/2024 10:45 AM EDT Office Visit Orthopaedics [facility] [address] [place] [address] Yrn Gutierrez MD [address] [place] [address] 02/09/2024 2:00 PM EDT Office Visit Cardiology, [facility] [address] [place] [address] Kaden Francis PAKash [address] [place] [address] 04/01/2024 2:40 PM EDT Office Visit Nephrology, [facility] 200 [facility] [place] [address] Ethan Gama MD 200 [facility] [place] [address] 04/08/2024 1:40 PM EDT Telemedicine Neurosurgery, [place] [address] [place], [place] [phone] Will Donaldson PA-C [address] [place], [place] [phone] 06/05/2024 10:45 AM EDT Office Visit Urology Jayesh Faith [address] [place] [address] [place] [address] Param Haines Jr., MD [address] [place] [address] [place] [phone] Health Maintenance Due Date Last Done Comments *BISPHONATE OR OTHER ACCEPTABLE MEDICATION NEEDED FOR OSTEOPOROSIS (REFER TO SMARTSET #1146) 10/01/2022 COVID-19 Vaccine ( season) 2023 08/18/2021, 12/01/2020, 11/10/2020 Albumin/Creatinine Ratio 03/16/2024 023, 05/24/2022, 11/25/2021, Additional history exists CKD PHOS USE SMARTSET 45801 03/16/2024 07/0 02/2023, 02/18/2022, 05/06/2021, Additional history exists TSH 03/16/2024 03/16/2023, 02/09, 11/25/2021, Additional history exists Depression Screening 10/06/2024 10/06/2023 CKD HGB USE SMARTSET 01809 11/27/202411/27, 11/28/2023, 03/16/2023, Additional history exists O2 [...] D LEVEL ONCE IN A LIFETIME-USE SMARTSET# 05080 Completed 03/16/2023, 05/24/2022, 07/02/2020, Additional history exists [...] on File Type Date Recorded Patient Applications Coordinator Expl anation Advance Directives and Living Will 04/09/2012 LIVING WILL DECLARAT ION - LIVING WILL Latest Code Status on File Code Status Date Activated Date Inactivated Comments Full Code 12/10/2007 8:45 AM 12/10/2007 3:42 PM Care Teams Laundry Tech Relationship Specialty Start Date End Date Anamaria Allison DO [address] [place] [address] PCP - General Family Medicine 10/26/22 documented as of this encounter
--- OUTSIDE RECORDS SUMMARY | 2023-12-23 14:42 | External Medical Summary | Summary of Care ---
Author Name Unknown Organization [facility] Address [address] [place] [address] Phone [phone] Care Team Providers Care Timber Management Professor Name Role Phone Yesikawinter Anamaria Rodriguez DO Primary Care Provider [phone] Encounter Details Date Type Department Care Team (Latest Contact Info) Description 11/30/2023 Medication Management [facility] [address] [place] [address] Rhonda Young, [facility] [address] [place], [place] [id number] Referred for management of medication therapy* Allergies Active Allergy Reactions Criticality Noted Date Comments Edgar Inhibitors Cough 12/30/2011 Sulfa Antibiotics Unknown 01/03/2019 documented as of this encounter (statuses as of 12/07/2023) Medications Medication Sig Dispensed Refills Start Date [...] the morning. 90 Tablet 3 3 Active Acetaminophen 500 MG Oral Tablet [...] 7 Tablet 0 4 12/07/19 24 Active Losartan Potassium 100 MG Oral Tablet (Cozaar)Indication s:HTN, goal below 150/90 TAKE 1 TABLET BY MOUTH EVERY DAY 90 Tablet 1 4 Active Losartan Potassium 100 MG Oral Tablet (Cozaar)Indication s:HTN, goal below 150/90 TAKE 1 TABLET BY MOUTH EVERY DAY 90 Tablet 1 3 12/04/19 24 Discontinued Abrysvo 120 MCG/0.5ML Intramuscular Solution Reconstituted (RSV Pre-Fusion F A&B Vac [facility])Indications:N eed for RSV vaccination Inject 0.5 mL [...] as of this encounter (statuses as of 12/07/2023) Active Problems Problem Noted Date Diagnosed Date [...] as of this encounter (statuses as of 12/07/2023) Resolved Problems Problem Noted Date Diagnosed Date [...] 04/10/2007 Overview: 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 Objective: Review of patient's allergies indicates: Allergen Reactions Edgar Inhibitors Cough Sulfa Antibiotics Unknown Current Outpatient Medications - WARNING: List may be incomplete due to filtering Medication Sig Dispense Refill Losartan Potassium 100 MG Oral Tablet (Cozaar) TAKE 1 TABLET BY MOUTH EVERY DAY 90 Tablet 1 Betamethasone Dipropionate 0.05 % External Cream (Diprosone) Apply topically to affected area 2 times a day. 180 g 1 Meclizine HCl 25 MG Oral Tablet (Antivert) Take 1 Tablet by mouth daily as needed for Dizziness. Potassium Chloride ER 10 MEQ Oral Capsule Extended Release Take 1 Capsule by mouth in the morning and 1 Capsule before bedtime. 60 Capsule 0 Gsklvxfjkrh-Oahbaibfn-Jbrtpu 100-62.5-25 MCG/ACT Aerosol Powder Breath Activated (Trelegy Ellipta) Inhale 1 Puff by mouth in the morning. 180 Each 3 Metoprolol Succinate ER 25 MG Oral Tablet Extended Release 24 Hour (toPROL XL) TAKE 1.5 TABLETS BY MOUTH DAILY IN THE MORNING. TABS MAY BE CUT, DO NOT CRUSH OR CHEW. 135 Tablet 3 amLODIPine Besylate 2.5 MG Oral Tablet (Norvasc) Take 1 Tablet by mouth in the morning. 100 Tablet 2 Atorvastatin Calcium 40 MG Oral Tablet (Lipitor) Take 1 Tablet by mouth in the morning. 100 Tablet 2 hydroCHLOROthiazide 12.5 MG Oral Capsule (Hydrodiuril) Take 1 Capsule by mouth once a day on Monday, Monday, and Monday only. 42 Capsule 3 Ipratropium-Albuterol 0.5-2.5 (3) MG/3ML Inhalation Solution (Duoneb) Inhale 3 mL via nebulizer every 6 hours as needed for Congestion or Shortness of Breath. 1080 mL 1 Rivaroxaban 15 MG Oral Tablet (Xarelto) Take 1 Tablet by mouth daily with dinner. 100 Tablet 2 Terazosin HCl 2 MG Oral Capsule Take 1 Capsule by mouth daily. 100 Capsule 2 Acetaminophen 500 MG Oral Tablet Take 1 Tablet by mouth in the morning and 1 Tablet before bedtime. Finasteride 5 MG Oral Tablet (Proscar) Take 1 Tablet by mouth in the morning. 90 Tablet 3 Levothyroxine Sodium 137 MCG Oral Tablet Take 1 Tablet by mouth in the morning. (at least 30 min prior to breakfast or other meds). 100 Tablet 3 Eucerin External Cream Apply topically to affected area as needed for Dry Skin. Apply to psoriasis areas Cetirizine HCl 10 MG Oral Tablet (ZyrTEC) TAKE 1 TABLET BY MOUTH EVERY DAY 90 Tablet 3 Fluticasone Propionate 50 MCG/ACT Nasal Suspension (Flonase) Administer 2 Sprays into each nostril in the morning. Vitamin D 50 MCG (2000 UT) Oral Capsule Take 2,000 Units by mouth every other day. EQ Complete Multivit Adult 50+ Oral Tablet Take 1 Tablet by mouth 2 times a day with morning and evening meals. levoFLOXacin 250 MG Oral Tablet (Levaquin) Take 1 Tablet by mouth in the morning for 7 days. until gone.. 7 Tablet 0 CPAP every night at bedtime . Immunization History Administered Date(s) Administered COVID-19 mRNA, LNP-s, No Preserve, 2-Dose Series (Thinkspeed) 11/10/2020, 12/01/2020, 08/18/2021 Diptheria/Tetanus (Adult) 05/12/1989, 04/06/1999 Hepatitis B Vaccine 01/22/1992, 02/24/1992, 07/07/1992 Hepatitis B, 20+ yrs 01/22/1992, 02/24/1992, 07/07/1992 Influenza, Whole Virus 06/16/2005 OPV - Polio Virus Vaccine (Oral) 03/11/1992 PPD 11/27/2007, 01/05/2009 Pneumococcal Conjugate Vacc, 13 Valent (Prevnar) 01/27/2015 Pneumococcal Polysaccharide PPV23 (Pneumovax) 11/27/2001, 06/02/2010 RSV Vac., Bivalent, Perfusion F, Pf,0.5 Ml (Abrysvo) 11/30/2023 Seasonal Influenza Virus Vaccine, Unspecified Formulation 07/26/1999, 08/28/2000, 07/03/2002, 07/16/2003, 06/16/2005, 07/07/2006, 06/21/2007, 06/23/2008, 06/01/2009, 06/02/2010, 06/06/2011, 06/06/2012, 05/20/2016, 05/29/2017, 05/17/2018, 05/30/2019, 05/31/2021 Seasonal Influenza, PF, 6 M & above, IM , (FluLaval or Fluzone) 05/17/2018 Seasonal Influenza, Quadrivalent Hd (Fluzone Hd) 05/31/2021, 06/01/2022, 06/22/2023 Seasonal Influenza, Quadrivalent, No Preserve, IM 06/11/2015, 05/20/2016, 05/29/2017 Seasonal Influenza, Recombinant, RIV4, PF, (Flublock) 06/13/2020 Seasonal Influenza, Split, IIV3, With Preserve, Inj 07/26/1999, 08/28/2000, 07/03/2002, 07/16/2003,07/07/2006, 06/21/2007, 06/23/2008, 06/01/2009, 06/02/2010, 06/06/2011, 06/06/2012 Seasonal Influenza, Trivalent, Adjuvanted, 65+ yrs 05/30/2019 TD, Preservative Free 05/12/1989, 04/06/1999 TDAP (age 10 and older)(Boostrix) 05/04/2022 TDAP (age 11 and older)(Adacel) 12/05/2011 Typhoid Vaccine Parenteral 04/07/1992, 1992 Varicella Zoster Vaccine (Adult) 06/06/2012 Zoster Vaccine Recombinant (Shingrix) 04/25/2020, 07/01/2020 TMR Interventions Incomplete Medication Therapy Recommendations No medication therapy recommendations to display Completed Medication Therapy Recommendations Referred for management of medication therapy Current Medication: Hwjkyzcrnwt-Xgcjogghh-Uxiolj 100-62.5-25 MCG/ACT Aerosol Powder Breath Activated (Trelegy Ellipta) Rationale: Patient Education Recommendation: Provide Education - TRELEGY ellipta 100-62.5-25 MCG/ACT Aepb Assessment & Plan Indication, effectiveness, safety and convenience of his medications were reviewed today. The patient's medical conditions were assessed, evaluated, and deemed meeting goals of drug therapy, with thefollowing exceptions. Additional Notes: Summary Time Spent: 16-30 min Supervising pharmacist who provided the service: Buddy Chun Information Who was the recipient of the CMR service: beneficiary Language Template for the Patient Takeaway: Beninese I attest that I have reviewed and updated the patient's conditions, allergies, and medications to the best of my ability. Patient provided medication list gathered by: Rhonda Zambrano RPh 12/07/2023, 1:41 PM documented in this encounter Miscellaneous Notes * MT Personal Medication List - Rhonda Young RPh - 12/07/2023 1:31 PM EDT Medication How I take it Why I use it Prescriber Acetaminophen 500 MG Oral Tablet Take 1 Tablet by mouth in the morning and 1 Tablet before bedtime.Pain Self amLODIPine Besylate 2.5 MG Oral Tablet (Norvasc) Take 1 Tablet by mouth in the morning. High blood pressure Anamaria Allison, DO Atorvastatin Calcium 40 MG Oral Tablet (Lipitor) Take 1 Tablet by mouth in the morning. High cholesterol and heart protection Anamaria Allison, DO Betamethasone Dipropionate 0.05 % External Cream (Diprosone) Apply topically to affected area 2 times a day. Psoriasis Anamaria Allison DO Cetirizine HCl 10 MG Oral Tablet (ZyrTEC) TAKE 1 TABLET BY MOUTH EVERY DAY Allergies/Cough Self EQ Complete Multivit Adult 50+ Oral Tablet Take 1 Tablet by mouth 2 times a day with morning and evening meals. General Health Self Eucerin External Cream Apply topically to affected area as needed for Dry Skin. Apply to psoriasis areas Psoriasis Self Finasteride 5 MG Oral Tablet (Proscar) Take 1 Tablet by mouth in the morning. Prostate Param Haines Jr., MD Fluticasone Propionate 50 MCG/ACT Nasal Suspension (Flonase) Administer 2 Sprays into each nostril in the morning. Allergies/Cough Self Epjbzazwdxg-Gdgxjwpue-Rajvgq 100-62.5-25 MCG/ACT Aerosol Powder Breath Activated (Trelegy Ellipta) Inhale 1 Puff by mouth in the morning. Asthma Anamaria Allison DO hydroCHLOROthiazide 12.5 MG Oral Capsule (Hydrodiuril) Take 1 Capsule by mouth once a day on Monday, Monday, and Monday only. High blood pressure and fluid Anamaria Allison DO Ipratropium-Albuterol 0.5-2.5 (3) MG/3ML Inhalation Solution (Duoneb) Inhale 3 mL via nebulizer every 6 hours as needed for Congestion or Shortness of Breath. Cough Anamaria Allison DO Levothyroxine Sodium 137 MCG Oral Tablet Take 1 Tablet by mouth in the morning. (at least 30 min prior to breakfast or other meds). Thyroid Anamaria Allison DO Losartan Potassium 100 MG Oral Tablet (Cozaar) TAKE 1 TABLET BY MOUTH EVERY DAY High blood pressureSapril Allison DO Meclizine HCl 25 MG Oral Tablet (Antivert) Take 1 Tablet by mouth daily as needed for Dizziness. Dizziness Self Metoprolol Succinate ER 25 MG Oral Tablet Extended Release 24 Hour (toPROL XL) TAKE 1.5 TABLETS BY MOUTH DAILY IN THE MORNING. TABS MAY BE CUT, DO NOT CRUSH OR CHEW. High blood pressure and heart rate Anamaria Allison DO Potassium Chloride ER 10 MEQ Oral Capsule Extended Release Take 1 Capsule by mouth in the morning and 1 Capsule before bedtime. Low potassium Anamaria M Holencik, DO Rivaroxaban 15 MG Oral Tablet (Xarelto) Take 1 Tablet by mouth daily with dinner. Blood thinner foratrial fibrillation Anamaria Allison, DO Terazosin HCl 2 MG Oral Capsule Take 1 Capsule by mouth daily. High blood pressure Anamaria Jennifer Estefany, DO Vitamin D 50 MCG (1999 UT) Oral Capsule Take 2,000 Units by mouth every other day. General health Self * MTM To-Do-List - Rhonda Young RPh - 11/30/2023 10:49 AM EDT Images from the original note were not included. What we talked about: What I should do: The importance of taking your medication as prescribed Your medicine works best when taken as prescribed. It can be hard to remember to take daily medications. Consider making it a part of your daily routine. Pair taking your medication with something you do every day, like brushing your teeth or eating a meal. Consider setting daily alarms to help remind yourself when it is time to take your medicine. Using a pill box can also help you organize your medicines. Pill boxes allow you to fill each day slot with your daily medicine and help you track when your next dose is due. What we talked about: What I should do: Meclizine can sometimes cause drowsiness and you reported being tired sometimes. We discussed that it may help to switch the meclizine to evening or bedtime instead of morning. Butyou'll have to see if it is still effective at that time for your dizziness/tumor. What we talked about: What I should do: Your Trelegy can cause an infection in the mouth and throat if it sits on the tissue. Make sure to rinse your mouth out each time you use the Trelegy inhaler. What we talked about: What I should do: You're having a chronic cough. You identified that the benzonatate didn't really help. The cough could be coming from post-nasal drip from allergies. You've been using the flonase daily lately, but could also try the zyrtec (cetirizine) daily to prevent that too. You want to avoid benadryl (diphenhydramine) for allergy symptoms. documented in this encounter Plan of Treatment Upcoming Encounters Date Type Department Care Team (Late st Contact Info) Description 12/11/2023 10:45 AM EDT Scheduled Telephone Family Practice [address] [place] [address] [facility] [phone] [place], Nurse [address] [place] [address] 12/12/2023 2:00 PM EDT Office Visit [facility] [address] [place] [address] Yrn Gutierrez MD [address] [place] [address] 12/14/2023 2:30 PM EDT Cardiac Studies Cardiac Studies [address] [place] [address] 12/20/2023 10:45 AM EDT Office Visit [facility] [address] [place] [address] Yrn Gutierrez MD [address] [place] [address] 12/26/2023 9:30 AM EDT Office Visit Sleep Disorders Ctr [facility] [address] [place] [phone] Kitty Frost CRNP [address] [place] [address] 01/09/2024 9:20 AM EDT Office Visit Family [address] [facility] [address] Anamaria Allison, DO [address] [place] [address] 01/24/2024 10:45 AM EDT Office Visit Orthopaedics [facility] 132 [place] [address] Yrn Gutierrez MD [address] [facility] [place] [address] 02/09/2024 2:00 PM EDT Office Visit Cardiology, [facility] 132 [place] [address] Kaden Francis PALauroC [facility] [place] [address] 04/01/2024 2:40 PM EDT Office [facility] [address] [facility] [place] [address] Ethan Gama MD [address] [facility] [place] [address] 04/08/2024 1:40 PM EDT Telemedicine Neurosurgery, [place] [address] [place], [place] [id number] Will Donaldson PA-C [address] [place], [place] [id number] 06/05/2024 10:45 AM EDT Office Visit Urology Jayesh Faith [address] [place] [address] [place] [address] Param Haines Jr., MD [address] [place] [address] [place] [address] Health Maintenance Due Date Last Done Comments *BISPHONATE OR OTHER ACCEPTABLE MEDICATION NEEDED FOR OSTEOPOROSIS (REFER TO SMARTSET #1146) 10/01/2022 COVID-19 Vaccine ( season) 2023 08/18/2021, 12/01/2020, 11/10/2020 Albumin/Creatinine Ratio 03/16/2024 023, 05/24/2022, 11/25/2021, Additional history exists CKD PHOS USE SMARTSET 74989 03/16/2024 07/0 02/2023, 02/18/2022, 05/06/2021, Additional history exists TSH 03/16/2024 03/16/2023, 02/09, 11/25/2021, Additional history exists Depression Screening 10/06/2024 10/06/2023 CKD HGB USE SMARTSET 36540 11/27/202411/27, 11/28/2023, 03/16/2023, Additional history exists O2 [...] D LEVEL ONCE IN A LIFETIME-USE SMARTSET# [id number] Completed 03/16/2023, 05/24/2022, 07/02/2020, Additional history exists [...] as of this encounter Visit Diagnoses Diagnosis Referred for management of medication therapy- Primary Encounter for long-term (current) use of other medications documented in this encounter Advance Directives Documents on File Type Date Recorded Patient Arts And Crafts Instructor Expl anation Advance Directives and Living Will 04/09/2012 LIVING WILL DECLARAT ION - LIVING WILL Latest Code Status on File Code Status Date Activated Date Inactivated Comments Full Code 12/10/2007 8:45 AM 12/10/2007 3:42 PM Care Teams Timber Management Professor Relationship Specialty Start Date End Date Anamaria Allison DO [address] [place] [facility] [place] [address] PCP - General Family Medicine 10/26/22 documented as of this encounter
--- OUTSIDE RECORDS SUMMARY | 2023-12-23 14:42 | External Medical Summary | Summary of Care ---
Author Name Unknown Organization [facility] Address [address] [place] [address] Phone [phone] Care Team Providers Care Customer Account Technician Name Role Phone Anamaria Allison DO Primary Care Provider [phone] Reason for Visit * Reason Onset Date Comments Follow Up Immunization RSV Vaccine 11/30/2023 IV Therapy 11/30/2023 Encounter Details Date Type Department Care Team (Late st Contact Info) Description 11/30/2023 10:00 AM EDT Office Visit Family Practice [address] [facility] [place] [address] [place] [address] Anamaria Allison DO [address] [place] [address] Elevated brain natriuretic peptide (BNP) level*; Bilateral [...] 11/30/19 24 Discontinued(Me dication List Clean Up) Losartan Potassium 100 MG Oral Tablet (Cozaar)Indication s:HTN, goal below 150/90 TAKE 1 TABLET BY MOUTH EVERY DAY 90 Tablet 1 3 12/04/19 24 Discontinued Betamethasone Dipropionate 0.05 % External Cream (Diprosone)Indicat [...] Solution Reconstituted (RSV Pre-Fusion F A&B Vac [facility])Indications:N eed for RSV vaccination Inject 0.5 [...] 04/10/2007 Overview: ICD-10 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 seen: 11/30/2023 Treatment plan: levoFLOXacin 250 MG Oral Tablet (Levaquin) Will start levaquin given ongoing nature of coug Status update: Pt was contacted by [facility] per Dr Allison's request and it was noted that his cough has improved, still has some spells. No changes for now per Dr Allison. * Denise Bhatt RN - 11/30/2023 10:41 [...] IV PROTOCOL Date: 11/30/2023 [address] Site: [place] IV Protocol: IV Diuresis IV Placement: right antecubital IV Gauge: 22 Medication: Other Lasix 60 mg Disposition: Home Follow Up: Phone follow up tomorrow 12/01/23 Notes: to monitor and call with any problems or concerns. 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 Fluticasone Propionate 50 MCG/ACT Nasal Suspension (Flonase) Administer 2 Sprays into each nostril in the morning. Vitamin D 50 MCG (1999 UT) Oral [...] NOT CRUSH OR CHEW. 135 Tablet 3 Obeobbfdjul-Imwuamubf-Wdvgtn 100-62.5-25 MCG/ACT Aerosol Powder Breath Activated (Trelegy [...] DIAGNOSTIC (RECTUM) 02/20/2015 adenomatous polyp, repeat 3 yrs/[facility] COLONOSCOPY, DIAGNOSTIC (RECTUM) 07/11/2018 adenomatous polyp, diverticulosis/[facility] COLONOSCOPY, GI REFERRAL OP 08/23/2006 [...] hx of skin ca Heart Disorder Brother [place] AGE 60 73 [place] 89 Gastro-intestinal disorder [...] Description 12/05/2023 2:00 PM EDT Office Visit [facility] [address] [place] [address] Yrn Gutierrez MD [address] [place] [address] 12/12/2023 2:00 PM EDT Office Visit [facility] [address] [place] [address] Yrn Gutierrez MD [address] [place] [address] 12/14/2023 2:30 PM EDT Cardiac Studies Cardiac Studies [address] [place] [address] 12/20/2023 10:45 AM EDT [facility] [place] [address] Yrn Gutierrez MD [address] [place] [address] 12/26/2023 9:30 AM EDT Office Visit Sleep Disorders Ctr [facility] [address] [facility] [place] [phone] Kitty Frost CRNP [address] [place] [address] 01/09/2024 9:20 AM EDT Office Visit Family Practice [address] [place] [address] [address] [place] [address] Anamaria Allison DO [address] [facility] [place] [address] 01/24/2024 10:45 AM EDT Office [facility] [place] [address] Yrn Gutierrez MD [address] [place] [address] 02/09/2024 2:00 PM EDT Office Visit Cardiology, [facility] [address] [place] [address] Kaden Francis PA-C [address] [place] [address] 04/01/2024 2:40 PM EDT Office Visit Nephrology, [facility] 200 [place] [address] Ethan Gama MD [address] [facility] [place] [address] 04/08/2024 1:40 PM EDT Telemedicine Neurosurgery, [place] [address] [place], [place] [phone] Will Donaldson PA-C [address] [place] [address] 06/05/2024 10:45 AM EDT Office Visit Urology Jayesh Faith [address] [place] [address] [place] [address] Param Haines Jr., MD [address] [place] [address] [place] [address] Scheduled Orders Name Type Priority Associated Diagnoses [...] Additional history exists CKD PHOS USE SMARTSET 62506 03/16/2024 07/0 02/2023, 02/18/2022, 05/06/2021, Additional history exists TSH 03/16/2024 03/16/2023, 02/09, 11/25/2021, Additional history exists Depression Screening 10/06/2024 10/06/2023 CKD HGB USE SMARTSET 50210 11/27/202411/27, 11/28/2023, 03/16/2023, Additional history exists O2 [...] D LEVEL ONCE IN A LIFETIME-USE SMARTSET# [id number] Completed 03/16/2023, 05/24/2022, 07/02/2020, Additional history exists [...] Documents on File Type Date Recorded Patient Housekeeping Aid Expl anation Advance Directives and Living Will 04/09/2012 LIVING WILL DECLARAT ION - LIVING WILL Latest Code Status on File Code Status Date Activated Date Inactivated Comments Full Code 12/10/2007 8:45 AM 12/10/2007 3:42 PM Care Teams Customer Account Technician Relationship Specialty Start Date End Date Anamaria Allison DO [address] [place] [address] PCP - General Family Medicine 10/26/22 documented as of this encounter
--- OUTSIDE RECORDS SUMMARY | 2023-12-23 14:42 | External Medical Summary | Summary of Care ---
Author Name Unknown Organization [facility] Address [address] [place] [address] Phone [phone] Care Team Providers Care Cafe Helper Name Role Phone YesikaAnamaria max Jennifer CHÁVEZ Primary Care Provider Reason for Visit * Reason Comments Follow Up Knee Pain R knee * Precert (Within 30 days (routine)) - Authorized Specialty Diagnoses / Procedures Referred By Contac t Referred To Contact Orthopedics Diagnoses Unilateral primary osteoarthritis, right knee Procedures DE GEL-SYN INJECTION 0.1 MG Yrn Gutierrez MD [address] [place] [address] Yrn Gutierrez MD [address] [place] [address] Referral ID Status Reason Start Date Expiration Date V isits Requested Visits Authorized [id number] Authorized Precert 11/07/2023 11/06/[phone] Encounter Details Date Type Department Care Team (Latest Contact Info) Description 12/05/2023 2:00 PM EDT Office Visit Orthopaedics [facility] [address] [place] [address] Yrn Gutierrez MD [address] [place] [address] Primary osteoarthritis of right knee* Allergies Active Allergy Reactions Criticality Noted Date Comments Edgar Inhibitors Cough 12/30/2011 Sulfa Antibiotics Unknown 01/03/2019 documented as of this encounter (statuses as of 12/05/2023) Medications Medication Sig Dispensed Refills Start Date [...] gone.. 7 Tablet 0 11/30/2023 12/07/2023 Active Losartan Potassium 100 MG Oral Tablet [...] of right knee 16.8 mg IX ONCE 12/05/2023 12/05/2023 Ended documented as of this encounter (statuses as of 12/05/2023) Active Problems Problem Noted Date Diagnosed Date [...] as of this encounter (statuses as of 12/05/2023) Resolved Problems Problem Noted Date Diagnosed Date [...] 04/10/2007 Overview: ICD-10 update of inactive term [facility] current use of ant icoagulant therapy 08/11/2005 [...] as of this encounter (statuses as of 12/05/2023) Immunizations Name Administration Dates Next Due COVID-19 mRNA, LNP-s, No Pre serve, 2-Dose Series ([facility]) 08/18/2021,12/01/2020,11/10/2020 Diptheria/Tetanus (Adult) 04/06/1999,05/12/1989 Hepatitis B Vaccine [...] Progress Notes * Yrn Gutierrez MD - 12/05/2023 1:54 PM EDT Here for procedure only visit. To begin viscosupplementation with Gelsyn. Has known knee arthritis. Pt Name: Armani Woods Diagnosis: OA right knee. The patient is here for the first of a series of Gelsyn injections. There [...] Nursing Notes * Anamaria Chapa LPN - 12/05/2023 1:55 PM EDT -f/u R knee -Intra-articular steroid injection performed 10/17/2023 -pt may receive FIRST of series Gelsyn today??? -referral on file Renée Swann LPN documented in this encounter Plan of Treatment Upcoming Encounters Date Type Department Care Team (Late st Contact Info) Description 12/12/2023 2:00 PM EDT Office Visit Orthopaedics [facility] [address] [place] [address] Yrn Gutierrez MD [address] [place] [address] 12/14/2023 2:30 PM EDT Cardiac Studies Cardiac Studies [address] [place] [phone] 12/20/2023 10:45 AM EDT Office Visit [facility] [address] [place] [address] Yrn Gutierrez MD [address] [place] [address] 12/26/2023 9:30 AM EDT Office Visit Sleep Disorders Ctr [facility] 132 [place] [phone] Kitty Frost CRNP 132 [facility] [place] [address] 01/09/2024 9:20 AM EDT Office Visit Family Practice [address] [place] [address] 293 [facility] [place] [address] Anamaria Allison DO 293 [place] [address] 01/24/2024 10:45 AM EDT Office Visit Orthopaedics [facility] 132 [place] [address] Yrn Gutierrez MD 132 [place] [address] 02/09/2024 2:00 PM EDT Office Visit Cardiology, [facility] 132 [place] [address] Kaden Francis PALauroC 132 [facility] [place] [address] 04/01/2024 2:40 PM EDT Office Visit Nephrology, [place] [address] [place], [place] [address] Ethan Gama MD [address] [place] [address] 04/08/2024 1:40 PM EDT Telemedicine Neurosurgery, [place] [address] [place], [place] [phone] Will Donaldson, PAKash [address] [place], [place] [phone] 06/05/2024 10:45 AM EDT Office Visit Urology Jayesh Faith [address] [place] [address] [place] [address] Param Haines Jr., MD [address] [place] [address] [place] [address] Health Maintenance Due Date Last Done Comments *BISPHONATE OR OTHER ACCEPTABLE MEDICATION NEEDED FOR OSTEOPOROSIS (REFER TO SMARTSET #1146) 10/01/2022 COVID-19 Vaccine ( season) 2023 08/18/2021, 12/01/2020, 11/10/2020 Albumin/Creatinine Ratio 03/16/2024 023, 05/24/2022, 11/25/2021, Additional history exists CKD PHOS USE SMARTSET 98341 03/16/2024 07/0 02/2023, 02/18/2022, 05/06/2021, Additional history exists TSH 03/16/2024 03/16/2023, 02/09, 11/25/2021, Additional history exists Depression Screening 10/06/2024 10/06/2023 CKD HGB USE SMARTSET 57376 11/27/202411/27, 11/28/2023, 03/16/2023, Additional history exists O2 [...] D LEVEL ONCE IN A LIFETIME-USE SMARTSET# 33831 Completed 03/16/2023, 05/24/2022, 07/02/2020, Additional history exists [...] 16.8 mg 16.8 mg, Intra-Articular, ONCE, On Tu12/05/23 at 1445, For 1 dose Given 12/05/2023 2:04 PM EDT 16.8 mg K nee Right documented in this encounter Advance Directives Documents on File Type Date Recorded 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
--- OUTSIDE RECORDS SUMMARY | 2023-12-23 14:42 | External Medical Summary | Summary of Care ---
Author Name Unknown Organization [facility] Address [address] [place] [address] Phone [phone] Care Team Providers Care Power Shovel Operator Helper Name Role Phone Anamaria Allison DO Primary Care Provider [phone] Reason for Visit * Reason Comments eRx-Medication Refill Encounter Details Date Type Department Care Team (Late st Contact Info) Description 12/03/2023 Refill Family Practice [facility] [address] [place] [address] Edgardo Lara DO [address] [place] [address] HTN, goal below 150/90 Allergies Active Allergy Reactions Criticality Noted Date [...] Active Cetirizine HCl 10 MG Oral Tablet (ZyrTEC)Indicatio ns:Cough TAKE 1 TABLET BY MOUTH EVERY DAY 90 Tablet 3 03/07/2022 Active CPAP every night at bedtime . 0 Active Eucerin External Cream Apply topically to affected area as needed for Dry Skin. Apply to psoriasis areas 0 Active Levothyroxine Sodium 137 MCG Oral TabletIndications :Hypothyroidism, unspecified type Take 1 Tablet by mouth [...] the morning. 100 Tablet 2 06/07/2023 Active hydroCHLOROthiazi de 12.5 MG Oral Capsule (Hydrodiuril)Nunu cations:HTN, goal below 150/90 Take 1 Capsule by mouth once a day on Monday, Monday, and Monday only. 42 Capsule 3 06/07/2023 Active Terazosin HCl 2 MG Oral CapsuleIndication s:HTN, goal below 150/90 Take 1 Capsule by mouth daily. 100 Capsule 2 06/07/2023 Active Rivaroxaban 15 MG Oral Tablet (Xarelto)Indicati ons:Atrial flutter, unspecified type (HCC) Take 1 Tablet by mouth daily with dinner. 100 Tablet 2 06/07/2023 Active Ipratropium-Albut brisa 0.5-2.5 (3) MG/3ML Inhalation Solution (Duoneb)Indicatio ns:Cough Inhale 3 mL via nebulizer every 6 hours as needed for Congestion or Shortness of Breath. 1080 mL 1 06/07/2023 Active Metoprolol Succinate ER 25 MG Oral Tablet Extended Release 24 Hour (toPROL XL)Indications:HT N, goal below 150/90 TAKE 1.5 TABLETS BY MOUTH DAILY IN THE MORNING. TABS MAY BE CUT, DO NOT CRUSH OR CHEW. 135 Tablet 3 07/12/2023 Active Fluticasone-Umecl idin-Vilant 100-62.5-25 MCG/ACT Aerosol Powder Breath Activated (Trelegy Ellipta)Indicatio ns:Moderate persistent asthma without complication Inhale 1 Puff by mouth in the morning. 180 Each 3 09/26/2023 Active Potassium Chloride ER 10 MEQ Oral Capsule Extended ReleaseIndication s:Bilateral edema of lower extremity Take 1 Capsule by mouth in the morning and 1 Capsule before bedtime. 60 Capsule 0 11/29/2023 Active Meclizine HCl 25 MG Oral Tablet (Antivert) Take 1 Tablet by mouth daily as needed for Dizziness. 0 Active Betamethasone Dipropionate 0.05 % External Cream (Diprosone)Indica tions:Psoriasis Apply topically to affected area 2 times a day. 180 g 1 11/30/2023 Active levoFLOXacin 250 MG Oral Tablet (Levaquin)Indicat ions:Acute cough Take 1 Tablet by mouth in the morning for 7 days. until gone.. 7 Tablet 0 11/30/2023 12/07/19 24 Active Losartan Potassium 100 MG Oral Tablet (Cozaar)Indicatio ns:HTN, goal below 150/90 TAKE 1 TABLET BY MOUTH EVERY DAY 90 Tablet 1 12/04/2023 Active Losartan Potassium 100 MG Oral Tablet (Cozaar)Indicatio ns:HTN, goal below 150/90 TAKE 1 TABLET BY MOUTH EVERY DAY 90 Tablet 1 06/06/2023 12/04/19 24 Discontinued Hospital, Clinic, or Other Facility Administered Medication [...] 04/10/2007 Overview: ICD-10 update of inactive term group home current use of ant icoagulant therapy [...] mRNA, LNP-s, No Pre serve, 2-Dose Series ([employer]) 08/18/2021,12/01/2020,11/10/2020 Hepatitis B, 20+ yrs 07/07/1992,02/24/1992,01/21 PPD [...] encounter Miscellaneous Notes * Telephone Encounter - Soha Alatorre RPh - 12/04/2023 1:41 PM EDTSigned Prescriptions: Disp Refills Losartan Potassium 100 MG Oral Tablet (Coz*90 Tab*1 Sig: TAKE 1 TABLET BY MOUTH EVERY DAYAuthorizing Provider: EDGARDO LARA User: SOHA ALATORRE- documented in this encounter Plan of Treatment Upcoming Encounters Date Type Department Care Team (Late st Contact Info) Description 12/05/2023 2:00 PM EDT Office Visit [facility] [address] [place] [address] Yrn Gutierrez MD [address] [place] [address] 12/12/2023 2:00 PM EDT Office Visit [facility] [address] [place] [address] Yrn Gutierrez MD [address] [place] [address] 12/14/2023 2:30 PM EDT Cardiac Studies Cardiac Studies [address] [place] [address] 12/20/2023 10:45 AM EDT Office Visit Orthopaedics [facility] [place] [address] Yrn Gutierrez MD [address] [facility] [place] [address] 12/26/2023 9:30 AM EDT Office Visit Sleep Disorders [facility] 132 [facility] [place] [phone] Kitty Frost CRNP [address] [place] [address] 01/09/2024 9:20 AM EDT Office Visit Family Practice [address] [place] [address] 293 [place] [address] Anamaria Allison DO 293 [place] [address] 01/24/2024 10:45 AM EDT Office Visit [facility] 132 [facility] [place] [address] Yrn Gutierrez MD 132 Ele [facility] [place] [address] 02/09/2024 2:00 PM EDT Office Visit Cardiology, [facility] [place] [address] Kaden Francis PA-C [address] [place] [address] 04/01/2024 2:40 PM EDT Office Visit Nephrology, [facility] 200 [facility] [place] [address] Ethan Gama MD [address] [facility] [address] [place] [address] 04/08/2024 1:40 PM EDT Telemedicine Neurosurgery, [place] [address] [place] [address] Will Donaldson PA-C [address] [place], [place] [phone] 06/05/2024 10:45 AM EDT Office Visit Urology Jayesh Faith [address] [place] [address] [place] [address] Param Haines Jr., MD [address] [place] [address] [place] [address] Health Maintenance Due Date Last Done Comments *BISPHONATE OR OTHER ACCEPTABLE MEDICATION NEEDED FOR OSTEOPOROSIS (REFER TO SMARTSET #1146) 10/01/2022 COVID-19 Vaccine ( season) 2023 08/18/2021, 12/01/2020, 11/10/2020 Albumin/Creatinine Ratio 03/16/2024 023, 05/24/2022, 11/25/2021, Additional history exists CKD PHOS USE SMARTSET 81081 03/16/2024 07/0 02/2023, 02/18/2022, 05/06/2021, Additional history exists TSH 03/16/2024 03/16/2023, 02/09, 11/25/2021, Additional history exists Depression Screening 10/06/2024 10/06/2023 CKD HGB USE SMARTSET 84783 11/27/202411/27, 11/28/2023, 03/16/2023, Additional history exists O2 [...] D LEVEL ONCE IN A LIFETIME-USE SMARTSET# 85804 Completed 03/16/2023, 05/24/2022, 07/02/2020, Additional history exists [...] as of this encounter Visit Diagnoses Diagnosis HTN, goal below 150/90 documented in this encounter Advance Directives Documents on File Type Date Recorded 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
--- OUTSIDE RECORDS SUMMARY | 2023-12-23 14:42 | External Medical Summary | Summary of Care ---
Author Name Unknown Organization [facility] Address [address] [place] [address] Phone [phone] Care Team Providers Care Public Health Engineer Name Role Phone YesikaAnamaria max Jennifer CHÁVEZ Primary Care Provider Reason for Visit * Reason Comments Follow Up Knee Pain R knee * Precert (Within 30 days (routine)) - Authorized Specialty Diagnoses / Procedures Referred By Contac t Referred To Contact Orthopedics Diagnoses Unilateral primary osteoarthritis, right knee Procedures [place] GEL-SYN INJECTION 0.1 MG Yrn Gutierrez MD [address] [place] [address] Yrn Gutierrez MD [address] [place] [address] Referral ID Status Reason Start Date Expiration Date V isits Requested Visits Authorized [id number] Authorized Precert 11/07/2023 11/06/[phone] Encounter Details Date Type Department Care Team (Latest Contact Info) Description 12/05/2023 2:00 PM EDT Office Visit Orthopaedics [facility] [address] [place] [address] Yrn Gutierrez MD [address] [place] [address] Primary osteoarthritis of right knee* Allergies Active [...] mRNA, LNP-s, No Pre serve, 2-Dose Series ([facility]) 08/18/2021,12/01/2020,11/10/2020 Diptheria/Tetanus (Adult) 04/06/1999,05/12/1989 Hepatitis B Vaccine [...] 12/12/2023 2:00 PM EDT Office Visit Orthopaedics [facility] [address] [place] [address] Yrn Gutierrez MD [address] [place] [address] 12/14/2023 2:30 PM EDT Cardiac Studies Cardiac Studies [address] [place] [phone] 12/20/2023 10:45 AM EDT Office Visit [facility] [address] [place] [address] Yrn Gutierrez MD [address] [place] [address] 12/26/2023 9:30 AM EDT Office Visit [facility] Disorders Ctr [facility] 132 [place] [address] Kitty Frost CRNP 132 [place] [address] 01/09/2024 9:20 AM EDT Office Visit Family Practice [address] [place] [address] 293 [place] [address] Anamaria Allison DO 293 [place] [address] 01/24/2024 10:45 AM EDT Office Visit Orthopaedics [facility] 132 [place] [address] Yrn Gutierrez MD 132 [place] [address] 02/09/2024 2:00 PM EDT Office Visit Cardiology, [facility] 132 [facility] [place] [address] Kaden Francis PALauroC 132 [place] [address] 04/01/2024 2:40 PM EDT Office Visit Nephrology, [place] [address] [place], [place] [address] Ethan Gama MD [address] [place] [address] 04/08/2024 1:40 PM EDT Telemedicine Neurosurgery, [place] [address] [place], [place] [phone] Will Donaldson, PAKash [address] [place], [place] [phone] 06/05/2024 10:45 AM EDT Office Visit Urology Jayesh Faith [address] [place] [address] [place] [address] Param Haines Jr., MD [address] [place] [address] [place] [address] Health Maintenance Due Date Last Done Comments *BISPHONATE OR OTHER ACCEPTABLE MEDICATION NEEDED FOR OSTEOPOROSIS (REFER TO SMARTSET #1146) 10/01/2022 COVID-19 Vaccine ( season) 2023 08/18/2021, 12/01/2020, 11/10/2020 Albumin/Creatinine Ratio 03/16/2024 023, 05/24/2022, 11/25/2021, Additional history exists CKD PHOS USE SMARTSET 72440 03/16/2024 07/0 02/2023, 02/18/2022, 05/06/2021, Additional history exists TSH 03/16/2024 03/16/2023, 02/09, 11/25/2021, Additional history exists Depression Screening 10/06/2024 10/06/2023 CKD HGB USE SMARTSET 72272 11/27/202411/27, 11/28/2023, 03/16/2023, Additional history exists O2 [...] D LEVEL ONCE IN A LIFETIME-USE SMARTSET# 38026 Completed 03/16/2023, 05/24/2022, 07/02/2020, Additional history exists [...] Documents on File Type Date Recorded Patient Joint Cutter Expl anation Advance Directives and Living Will 04/09/2012 LIVING WILL DECLARAT ION - LIVING WILL Latest Code Status on File Code Status Date Activated Date Inactivated Comments Full Code 12/10/2007 8:45 AM 12/10/2007 3:42 PM Care Teams Public Health Engineer Relationship Specialty Start Date End Date Anamaria Allison DO 293 [facility] [place] [address] PCP - General Family Medicine 10/26/22 documented as of this encounter
--- OUTSIDE RECORDS SUMMARY | 2023-12-23 14:43 | External Medical Summary | Summary of Care ---
Author Name Unknown Organization [facility] Address [address] [place] [address] Phone [phone] Care Team Providers Care Barber Instructor Name Role Phone Anamaria Allison DO Primary Care Provider Reason for Visit * Reason Onset Date Comments Nurse Documentation 12/01/202311/30 Encounter Details Date Type Department Care Team (Late st Contact Info) Description 12/01/2023 9:30 AM EDT Scheduled Telephone Family Practice [address] [address] College, Nurse [facility] Prac [address] [address] Allergies Active Allergy Reactions Criticality Noted Date Comments Edgar Inhibitors Cough 12/30/2011 Sulfa Antibiotics Unknown 01/03/2019 documented as of this encounter (statuses as of 12/01/2023) Medications Medication Sig Dispensed Refills Start Date [...] daily as needed for Dizziness. 0 Active Abrysvo 120 MCG/0.5ML Intramuscular Solution Reconstituted (RSV Pre-Fusion F A&B Vac Rcmb)Indications:Ne ed for RSV vaccination Inject 0.5 mL into a large muscle once for 1 dose. 1 Each 0 11/30/2023 12/01/2023 Active Betamethasone Dipropionate 0.05 % External Cream [...] as of this encounter (statuses as of 12/01/2023) Active Problems Problem Noted Date Diagnosed Date [...] 11/30/2021 Moderate persistent asthma without complication 04/19/2021 Chronic kidney disease, stage 3b 01/19/2021 Overview: Per CKD protocol Hypertensive kidney disease with stage 3b chronic [...] as of this encounter (statuses as of 12/01/2023) Resolved Problems Problem Noted Date Diagnosed Date Resolved Date Prediabetes 04/19/2021 07/27/2023 Overview: Per Prediabetes protocol Hypertensive kidney disease with chronic kidney [...] 04/10/2007 Overview: 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 Spoke to Shaina with patient in background offering information. Per and pt: Weight this morning is down from yesterday - 175.8 lbs today. Edema in legs has improved - looked good this morning but some swelling has started since he has been up and around. Pt and report they look better than yesterday. Did cough some during the night but reports cough has improved this morning. No shortness of breath. Urinating without problem. Pt did start antibiotic. Instructed to contact office with worsening of symptoms, questions, concerns. documented in this encounter Plan of Treatment Upcoming Encounters Date Type Department Care Team (Late st Contact Info) Description 12/05/2023 2:00 PM EDT Office Visit Orthopaedics [facility] [address] [place] [address] Yrn Gutierrez MD [address] [place] [address] 12/12/2023 2:00 PM EDT Office Visit Orthopaedics [facility] [address] [place] [address] Yrn Gutierrez MD [address] [place] [address] 12/14/2023 2:30 PM EDT Cardiac Studies Cardiac Studies [address] [place] [address] 12/20/2023 10:45 AM EDT Office Visit [facility] [place] [address] Yrn Gutierrez MD [address] [place] [address] 12/26/2023 9:30 AM EDT Office Visit Sleep Disorders [facility] 132 [facility] [place] [phone] Kitty Frost CRNP [address] [facility] [place] [address] 01/09/2024 9:20 AM EDT Office Visit Family Practice [address] [place] [address] 293 [place] [address] Anamaria Allison DO 293 [facility] [address] 01/24/2024 10:45 AM EDT Office Visit [facility] 132 [facility] [place] [address] Yrn Gutierrez MD [address] [facility] [place] [address] 02/09/2024 2:00 PM EDT Office Visit Cardiology, [facility] [address] [place] [address] Kaden Francis PA-C [address] [place] [address] 04/01/2024 2:40 PM EDT Office Visit Nephrology, [facility] 200 [facility] [place] [address] Ethan Gama MD [address] [facility] [address] [place] [address] 04/08/2024 1:40 PM EDT Telemedicine Neurosurgery, [place] [address] [place] [address] Will Donaldson PA-C [address] [place], [place] [phone] 06/05/2024 10:45 AM EDT Office Visit Urology Jayesh Faith [address] [place] [address] [place] [address] Param Haines Jr., MD [address] [place] [address] [place] [phone] Health Maintenance Due Date Last Done Comments *BISPHONATE OR OTHER ACCEPTABLE MEDICATION NEEDED FOR OSTEOPOROSIS (REFER TO SMARTSET #1146) 10/01/2022 COVID-19 Vaccine ( season) 2023 08/18/2021, 12/01/2020, 11/10/2020 Albumin/Creatinine Ratio 03/16/2024 023, 05/24/2022, 11/25/2021, Additional history exists CKD PHOS USE SMARTSET 60372 03/16/2024 07/0 02/2023, 02/18/2022, 05/06/2021, Additional history exists TSH 03/16/2024 03/16/2023, 02/09, 11/25/2021, Additional history exists Depression Screening 10/06/2024 10/06/2023 CKD HGB USE SMARTSET 41100 11/27/202411/27, 11/28/2023, 03/16/2023, Additional history exists O2 [...] D LEVEL ONCE IN A LIFETIME-USE SMARTSET# 80707 Completed 03/16/2023, 05/24/2022, 07/02/2020, Additional history exists [...] Documents on File Type Date Recorded Patient Family Practice Doctor Expl anation Advance Directives and Living Will 04/09/2012 LIVING WILL DECLARAT ION - LIVING WILL Latest Code Status on File Code Status Date Activated Date Inactivated Comments Full Code 12/10/2007 8:45 AM 12/10/2007 3:42 PM Care Teams Barber Instructor Relationship Specialty Start Date End Date Anamaria Allison DO [address] [place], [place] [address]riot [facility] [address] PCP - General Family Medicine 10/26/22 documented as of this encounter
--- OUTSIDE RECORDS SUMMARY | 2023-12-23 14:43 | External Medical Summary | Summary of Care ---
Author Name Unknown Organization [facility] Address [address] [place] [address] Phone [phone] Care Team Providers Care Furniture Inspector Name Role Phone Anamaria Richards DO Primary Care Provider Reason for Visit * Reason Onset Date Comments Nurse Documentation 12/01/202311/30 Encounter Details Date Type Department Care Team (Latest Contact Info) Description 12/01/2023 9:30 AM EDT Scheduled Telephone Family Practice [address] [phone] College, Nurse [facility] Prac [address] [address] Bilateral edema of lower extremity* Allergies Active Allergy Reactions Criticality Noted Date [...] Solution Reconstituted (RSV Pre-Fusion F A&B Vac mb)Indications:Ne ed for RSV vaccination Inject 0.5 mL [...] 04/10/2007 Overview: ICD-10 update of inactive term jail current use of ant icoagulant therapy 08/11/2005 [...] mRNA, LNP-s, No Pre serve, 2-Dose Series ([employer]) 08/18/2021,12/01/2020,11/10/2020 Diptheria/Tetanus (Adult) 04/06/1999,05/12/1989 Hepatitis B Vaccine [...] as of this encounter Miscellaneous Notes * Addendum Note - Anamaria Richards DO - 12/01/2023 10:17 AM EDTAddended by: ANAMARIA RICHARDS on: 12/01/2023 10:17 AM Modules accepted: Orders * Telephone Encounter - Anamaria Richards DO - 12/01/2023 10:15 AM EDT Noted. Seems improved. I want him to start taking his HCTZ every day with labs in [place] on Monday. Place on nurse call on Monday. * Telephone Encounter - Irma Diaz LPN [...] Description 12/05/2023 2:00 PM EDT Office Visit [facility] [address] [place] [address] Yrn Gutierrez MD [address] [place] [address] 12/12/2023 2:00 PM EDT Office Visit [facility] [address] [place] [address] Yrn uGtierrez MD [address] [place] [address] 12/14/2023 2:30 PM EDT Cardiac Studies Cardiac Studies [address] [place] [address] 12/20/2023 10:45 AM EDT Office Visit [facility] [address] [place] [address] Yrn Gutierrez MD [address] [place] [address] 12/26/2023 9:30 AM EDT Office Visit Sleep Disorders Ctr [facility] [address] [place] [phone] Kitty Frost CRNP [address] [place] [address] 01/09/2024 9:20 AM EDT Office Visit Family Practice [address] [place] [address] 293 [place] [address] Anamaria Richards DO 293 [place] [address] 01/24/2024 10:45 AM EDT Office Visit Orthopaedics [facility] 132 [facility] [address] Yrn Gutierrez MD 132 [facility] [place] [address] 02/09/2024 2:00 PM EDT Office Visit Cardiology, [facility] 132 [place] [address] Kaden Francis PALauroC 132 [facility] [place] [address] 04/01/2024 2:40 PM EDT Office Visit Nephrology, [facility] 200 [place] [address] Ethan Gama MD 200 [place] [address] 04/08/2024 1:40 PM EDT Telemedicine Neurosurgery, [place] [address] [place], [place] [phone] Will Donaldson PA-C [address] [place], [place] [phone] 06/05/2024 10:45 AM EDT Office Visit Urology Jayesh Faith [address] [place] [address] [place] [address] Param Haines Jr., MD [address] [place] [address] [place] [address] Scheduled Orders Name Type Priority Associated Diagnoses Orde r Schedule BASIC METABOLIC PANEL Lab Routine Bilateral edema of lower extremity Expected: 12/01/2023 (Approximate), Expires: 11/30/2024 Health Maintenance Due Date Last Done Comments *BISPHONATE OR OTHER ACCEPTABLE MEDICATION NEEDED FOR OSTEOPOROSIS (REFER TO SMARTSET #1146) 10/01/2022 COVID-19 Vaccine ( season) 2023 08/18/2021, 12/01/2020, 11/10/2020 Albumin/Creatinine Ratio 03/16/2024 023, 05/24/2022, 11/25/2021, Additional history exists CKD PHOS USE SMARTSET 33307 03/16/2024 07/0 02/2023, 02/18/2022, 05/06/2021, Additional history exists TSH 03/16/2024 03/16/2023, 02/09, 11/25/2021, Additional history exists Depression Screening 10/06/2024 10/06/2023 CKD HGB USE SMARTSET 92547 11/27/202411/27, 11/28/2023, 03/16/2023, Additional history exists O2 [...] D LEVEL ONCE IN A LIFETIME-USE SMARTSET# 83945 Completed 03/16/2023, 05/24/2022, 07/02/2020, Additional history exists [...] Visit Diagnoses Diagnosis Bilateral edema of lower extremity- Primary Edema documented in this encounter Advance Directives Documents on File Type Date Recorded Patient Byproducts Supervisor Expl anation Advance Directives and Living Will 04/09/2012 LIVING WILL DECLARAT ION - LIVING WILL Latest Code Status on File Code Status Date Activated Date Inactivated Comments Full Code 12/10/2007 8:45 AM 12/10/2007 3:42 PM Care Teams Furniture Inspector Relationship Specialty Start Date End Date Anamaria Richards DO [address] [place] [address] PCP - General Family Medicine 10/26/22 documented as of this encounter
--- OUTSIDE RECORDS SUMMARY | 2023-12-23 14:43 | External Medical Summary | Summary of Care ---
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) Procedures ECHO, COMPLETE (2D), TRANS-THORACIC Anamaria Allison DO [address] [place] [address] Referral ID Status Reason Start Date Expiration Date V isits Requested Visits Authorized [id number] Authorized Precert 11/29/2023 999 999 Reason for Visit * Reason Onset Date Comments Follow Up IV Therapy 11/29/2023 IV Therapy 12/01/2023 Encounter Details Date Type Department Care Team (Late st Contact Info) Description 11/29/2023 3:00 PM EDT Office Visit Family Practice [address], [place] [address] [place] [address] Anamaria Allison DO [address] [place] [address] Bilateral edema of lower extremity*; 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) 60 mg IV PUSH ONCE 11/29/2023 11/29/2023 Ende d documented as of this encounter (statuses as [...] 04/10/2007 Overview: ICD-10 update of inactive term skilled nursing current use of ant icoagulant therapy 08/11/2005 [...] mRNA, LNP-s, No Pre serve, 2-Dose Series ([employer]) 08/18/2021,12/01/2020,11/10/2020 Diptheria/Tetanus (Adult) 04/06/1999,05/12/1989 Hepatitis B Vaccine [...] Sign Reading Time Taken Comments Blood Pressure 136/60 11/29/2023 4:11 PM EDT Pulse 70 11/29/2023 4:11 PM EDT Temperature 36.9 C (98.4 F) 11/29/2023 3:22 PM ED T Respiratory Rate 16 11/29/2023 3:22 PM EDT Oxygen Saturation 98% 11/29/2023 3:22 PM EDT Inhaled Oxygen Concentration - - Weight 82.7 kg (182 lb 6.4 oz) 11/29/2023 3:22 P M EDT Height 169.5 cm (5' 6.75") 11/29/2023 3:22 PM ED T Body Mass Index 28.78 11/29/2023 3:22 PM EDT documented in this encounter Progress Notes * Denise Torre LPN - 11/29/2023 4:01 PM EDT IV PROTOCOL Date: 11/29/2023 [address] Site: [place] IV Protocol: IV Diuresis IV Placement: left anticub IV Gauge: 22 Medication: Other lasix Disposition: Home Follow Up: 1-2 days with Provider Notes: inserted without difficulty, provider pushed med and pushed flush post med. * Denise Torre LPN - 11/29/2023 3:59 PM EDT IV ADMINISTRATION DOCUMENTATION After identifying patient by name and date of , IV catheter was inserted into Left AnticubitalVein with a positive blood return noted. Infusion start time 1600 PM IV solution hep lock only was hung and infused via IV push med by provider. at per Provider order. Medication was given by provider, IV start with hep lock placed by this nurse. Educated patient on signs and symptoms to report. Instructed to call clinic with any problems or concerns regarding IV therapy. See Documentation Flowsheet for additional information. Denise Torre LPN * Anamaria Allison DO - 11/29/2023 3:25 PM EDT SUBJECTIVE: Chief Complaint Patient presents with Follow Up HPI: Neelam Woods is a 88 year old male who presents today for regular return. Pt felt that he urinated quite a bit right after he got home but then was about his normal. He notes that his legs seemed better this morning. He notes that it seemed to return a bit after that. He notes that he was abit short of breath with activity today. He still has his cough. The cough is worse in the evening.He forgot to do his nebulizer yesterday. He did it this morning and felt that it helped. He did lose a lb since yesterday. 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, group B, by GOLD 2017 classification ([facility]) J44.9 Other psoriasis L40.8 Dyslipidemia, goal LDL below 100 E78.5 Age-related osteoporosis without current pathological fracture 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 Fluticasone Propionate 50 MCG/ACT Nasal Suspension (Flonase) Administer 2 Sprays into each nostril in the morning. Vitamin D 50 MCG (2000 UT) Oral Capsule Take 2,000 Units by mouth every other day. Cetirizine HCl 10 MG Oral Tablet (ZyrTEC) TAKE 1 TABLET BY MOUTH EVERY DAY 90 Tablet 3 Triamcinolone Acetonide 0.1 % External Cream (Aristocort) APPLY TOPICALLY TO AFFECTED AREA 2 TIMES A DAY. TO AFFECTED AREA. FOR PSORIASIS 80 g 5 CPAP every night at bedtime . Eucerin [...] MG Oral Tablet Take 1 Tablet by mouth. Takes 1 tablet in the morning and 1 tabletin the evening amLODIPine Besylate 2.5 MG Oral Tablet (Norvasc) [...] NOT CRUSH OR CHEW. 135 Tablet 3 Ecsmwgitgew-Xfvcrmykd-Ffpucw 100-62.5-25 MCG/ACT Aerosol Powder Breath Activated (Trelegy Ellipta) Inhale 1 Puff by mouth in the morning. 180 Each 3 Betamethasone Dipropionate 0.05 % External Cream (Diprosone) Apply topically to affected area 2 times a day 90 g 1 Knee Brace/Hinged Bars Medium Wear daily when active 1 Each 0 predniSONE 10 MG Oral Tablet (Deltasone) Take 5 tabs for 2 days, 4 tabs for 2 days, 3 tabs for 2 days, 2 tabs for 2 days 1 tab for 2 days (Patient not taking: Reported on 11/28/2023) 30 Tablet 0 Benzonatate 100 MG Oral Capsule Take 1 Capsule by mouth 3 times a day as needed for Cough. (Patientnot taking: Reported on 11/28/2023) 30 Capsule 1 Current Facility-Administered Medications Medication Dose Route [...] DIAGNOSTIC (RECTUM) 02/20/2015 adenomatous polyp, repeat 3 yrs/[facility], DIAGNOSTIC (RECTUM) 07/11/2018 adenomatous polyp, diverticulosis/[facility], GI REFERRAL OP 08/23/2006 adenomatous polyps--repeat [...] color change, pallor and rash. OBJECTIVE: BP 136/60 (BP Site: Left Arm, BP Position: Sitting, BP Cuff Size: Regular) | Pulse 70 | Temp 36.9 C (98.4 F) (Tympanic) | Resp 16 | Ht 1.695 m (5' 6.75") | Wt 82.7 kg (182 lb 6.4 oz) | SpO2 98% |BMI 28.78 kg/m | BSA 1.97 m PHYSICAL EXAM: Physical Exam Constitutional: General: [...] General: Bowel sounds are normal. There is distension. Palpations: Abdomen is soft. Tenderness: There is no abdominal tenderness. There is no guarding. Musculoskeletal: General: No tenderness or deformity. Normal range of motion. Right lower leg: Edema (+2-3 pitting) present. Left lower leg: Edema (+2-3 pitting) present. Skin: General: Skin is warm and dry. Coloration: Skin is not pale. Findings: No erythema or rash. Neurological: Mental Status: He is alert and oriented to person, place, and time. 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 BNP elevated. Check echo jennifer. 60 of IV lasix today. Start potassium. Renal function was stable on lab studies. Consider ED if no improvement. Follow-up: 1 day Total time today including reviewing chart before the visit, pertinent labs, imaging reports, face to face time, and documentation time was 44 minutes. Anamaria Allison DO documented in this encounter Nursing Notes * Irma Diaz LPN - 11/29/2023 3:21 PM EDT Pt here for follow up visit. Continues with cough, BLE edema. Reports SOB with exertion. documented in this encounter Miscellaneous Notes * Addendum Note - Denise Torre LPN - 12/01/2023 4:16 PM EDTAddended by: DENISE TORRE on: 12/01/2023 04:16 PM Modules accepted: Orders * Addendum Note - Denise Torre LPN - 11/29/2023 4:10 PM EDTAddended by: DENISE TORRE on: 11/29/2023 04:10 PM Modules accepted: Orders documented in this encounter Plan of Treatment Upcoming Encounters Date Type Department Care Team (Late st Contact Info) Description 12/04/2023 10:00 AM EDT Scheduled Telephone Family Practice 65 [facility] 293 [place] [address] [place], Nurse [facility] Prac [address] [place] [address] 12/05/2023 2:00 PM EDT Office Visit Orthopaedics [facility] [address] [place] [address] Yrn Gutierrez MD [address] [place] [address] 12/12/2023 2:00 PM EDT Office [facility] [place] [address] Yrn Gutierrez MD [address] [place] [address] 12/14/2023 2:30 PM EDT Cardiac Studies Cardiac Studies [address] [place] [address] 12/20/2023 10:45 AM EDT Office Visit [facility] 132 [facility] [place] [address] Yrn [facility]ierrez MD [facility] [place] [address] 12/26/2023 9:30 AM EDT Office Visit [facility] Ctr [facility] [place] [phone] Kitty Frost CRNP [facility] [place] [address] 01/09/2024 9:20 AM EDT Office Visit Family Practice [address] [place] [address] 293 [place] [address] Anamaria Allison DO 293 [place] [address] 01/24/2024 10:45 AM EDT Office Visit [facility] [place] [address] Yrn Gutierrez MD [address] [place] [address] 02/09/2024 2:00 PM EDT Office Visit Cardiology, [facility] [address] [place] [address] Kaden Francis PA-C [address] [place] [address] 04/01/2024 2:40 PM EDT Office Visit Nephrology, [facility] 200 [facility] [place] [address] Ethan Gama MD 200 [facility] [place] [address] 04/08/2024 1:40 PM EDT Telemedicine Neurosurgery, [place] [address] [place], [place] [phone] Will Donaldson PA-C [address] [place], [place] [phone] 06/05/2024 10:45 AM EDT Office Visit Urology Jayesh Faith [address] [place] [address] [place] [address] Param Haines Jr., MD [address] [place] [address] [place] [id number] Scheduled Orders Name Type Priority Associated Diagnoses Orde r Schedule ECHO, COMPLETE (2D), TRANS-THORACIC Echocardiology Routine Bilateral edema of lower extremity 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) Expected: 11/29/2023, Expires: 12/29/2025 Health Maintenance Due Date Last Done Comments *BISPHONATE OR OTHER ACCEPTABLE MEDICATION NEEDED FOR OSTEOPOROSIS (REFER TO SMARTSET #1146) 10/01/2022 COVID-19 Vaccine ( season) 2023 08/18/2021, 12/01/2020, 11/10/2020 Albumin/Creatinine Ratio 03/16/2024 0706/2 023, 05/24/2022, 11/25/2021, Additional history exists CKD PHOS USE SMARTSET 75312 03/16/2024 07/0 02/2023, 02/18/2022, 05/06/2021, Additional history exists TSH 03/16/2024 03/16/2023, 02/09, 11/25/2021, Additional history exists Depression Screening 10/06/2024 10/06/2023 CKD HGB USE SMARTSET 62260 11/27/202411/27, 11/28/2023, 03/16/2023, Additional history exists O2 [...] D LEVEL ONCE IN A LIFETIME-USE SMARTSET# 46237 Completed 03/16/2023, 05/24/2022, 07/02/2020, Additional history exists [...] Bilateral edema of lower extremity- Primary Edema 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) documented in this encounter Administered Medications Inactive Administered Medications - up to 3 most recent administrations Medication Order MAR Action Action Date Dose Rate Site Furosemide (Lasix) inj 60 mg 60 mg, IV Push, ONCE, On Mon11/29/23 at 1615, For 1 dose Given 11/29/2023 4:11 PM EDT 60 mg Antecubital Left documented in this encounter Advance Directives Documents on File Type Date Recorded Patient Media Specialist Expl anation Advance Directives and Living Will 04/09/2012 LIVING WILL DECLARAT ION - LIVING WILL Latest Code Status on File Code Status Date Activated Date Inactivated Comments Full Code 12/10/2007 8:45 AM 12/10/2007 3:42 PM Care Teams Expanding Machine Operator Relationship Specialty Start Date End Date Anamaria Allison DO [address] [place] [address] PCP - General Family Medicine 10/26/22 documented as of this encounter
--- OUTSIDE RECORDS SUMMARY | 2023-12-23 14:43 | External Medical Summary | Summary of Care ---
Author Name Unknown Organization [facility] Address [address] [place] [address] Phone [phone] Care Team Providers Care Med Specialist Name Role Phone Anamaria Richards DO Primary Care Provider [phone] Reason for Visit * Reason Onset Date Comments Nurse Documentation 12/01/202311/30 Encounter Details Date Type Department Care Team (Latest Contact Info) Description 12/01/2023 9:30 AM EDT Scheduled Telephone Family Practice [address] [phone] College, Nurse [facility] Prac [address] [address] Bilateral edema of lower extremity* Allergies Active [...] mRNA, LNP-s, No Pre serve, 2-Dose Series ([employer]) 08/18/2021,12/01/2020,11/10/2020 Diptheria/Tetanus (Adult) 04/06/1999,05/12/1989 Hepatitis B Vaccine [...] encounter Miscellaneous Notes * Telephone Encounter - Alicia Ryan OSA - 12/01/2023 12:39 PM EDT Nurse visit placed on schedule. * Telephone Encounter - Irma Diaz LPN - 12/01/2023 12:02 PM EDT Call placed to patient - spoke to with pt in background. Relayed information from Dr. Richards. Pt states he will take HCTZ daily and have lab work [facility]. Agreeable to nurse phone call Monday to follow up. help desk technician - please place on nurse visit schedule on Monday for phone call. Thank you. * Addendum Note - Anamaria Richards DO - 12/01/2023 10:17 AM EDTAddended by: ANAMARIA RICHARDS on: 12/01/2023 10:17 AM Modules accepted: Orders * Telephone Encounter - Anamaria Richards DO - 12/01/2023 10:15 AM EDT Noted. Seems improved. I want him to start taking his HCTZ every day with labs in [place] on Monday. Place on nurse call on [...] 10:00 AM EDT Scheduled Telephone Family Practice [address] [place] [address] 293 [place] [address] [place], Nurse [facility] [address] [place] [address] 12/05/2023 2:00 PM EDT Office Visit Orthopaedics [facility] [address] [place] [address] Yrn Gutierrez MD [address] [place] [address] 12/12/2023 2:00 PM EDT Office Visit Orthopaedics [facility] [address] [place], [place] [address] Yrn Gutierrez MD [address] [place] [address] 12/14/2023 2:30 PM EDT Cardiac Studies Cardiac Studies [address] [place] [address] 12/20/2023 10:45 AM EDT Office Visit Orthopaedics [facility] [address] [place] [address] Yrn Gutierrez MD [address] [facility] [place] [address] 12/26/2023 9:30 AM EDT Office Visit Sleep Disorders Ctr [facility] 132 [address] [facility] [place] [address] Kitty Frost CRNP [address] [facility] [place] [address] 01/09/2024 9:20 AM EDT Office Visit Family Practice [address] [place] [address] 293 [place] [address] Anamaria Richards DO 293 [place] [address] 01/24/2024 10:45 AM EDT Office Visit Orthopaedics [facility] [address] [place] [address] Yrn Gutierrez MD [address] [facility] [place] [address] 02/09/2024 2:00 PM EDT Office Visit Cardiology, [facility] [address] [place] [address] Kaden Francis PA-C [address] [place] [address] 04/01/2024 2:40 PM EDT Office Visit Nephrology, [facility] 200 [facility] [place], [place] [address] Ethan Gama MD 200 [facility] [place], [place] [address] 04/08/2024 1:40 PM EDT Telemedicine Neurosurgery, [place] [address] [place], [place] [phone] Will Donaldson PA-C [address] [place], [place] [phone] 06/05/2024 10:45 AM EDT Office Visit Urology Jayesh Faith [address] [place] [address] [place] [address] Param Haines Jr., MD [address] [place] [address] [place] [address] Scheduled Orders Name Type Priority Associated Diagnoses [...] Additional history exists CKD PHOS USE SMARTSET 47121 03/16/2024 07/0 02/2023, 02/18/2022, 05/06/2021, Additional history exists TSH 03/16/2024 03/16/2023, 02/09, 11/25/2021, Additional history exists Depression Screening 10/06/2024 10/06/2023 CKD HGB USE SMARTSET 80198 11/27/202411/27, 11/28/2023, 03/16/2023, Additional history exists O2 [...] D LEVEL ONCE IN A LIFETIME-USE SMARTSET# 83820 Completed 03/16/2023, 05/24/2022, 07/02/2020, Additional history exists [...] Documents on File Type Date Recorded Patient Regular Senior Care Provider Expl anation Advance Directives and Living Will 04/09/2012 LIVING WILL DECLARAT ION - LIVING WILL Latest Code Status on File Code Status Date Activated Date Inactivated Comments Full Code 12/10/2007 8:45 AM 12/10/2007 3:42 PM Care Teams Med Specialist Relationship Specialty Start Date End Date Anamaria Richards DO [address] [place] [address] PCP - General Family Medicine 10/26/22 documented as of this encounter
--- OUTSIDE RECORDS SUMMARY | 2023-12-23 14:43 | External Medical Summary | Summary of Care ---
Author Name Unknown Organization [facility] Address [address] [place] [address] Phone [phone] Care Team Providers Care Barrel Filler Name Role Phone Anamaria Allison DO Primary [...] COMPLETE (2D), TRANS-THORACIC Anamaria Allison DO [address] [place] [address] Referral ID Status Reason Start Date Expiration Date V isits Requested Visits Authorized [id number] Authorized Precert 11/29/2023 999 999 Reason for Visit * Reason Onset Date Comments Follow Up IV Therapy 11/29/2023 IV Therapy 12/01/2023 Encounter Details Date Type Department Care Team (Late st Contact Info) Description 11/29/2023 3:00 PM EDT Office Visit Family Practice [address], [place] [address] [place] [address] Anamaria Allison DO [address] [place] [address] Bilateral edema of lower extremity*; Hypertensive heart [...] mRNA, LNP-s, No Pre serve, 2-Dose Series (Task Messenger) 08/18/2021,12/01/2020,11/10/2020 Diptheria/Tetanus (Adult) 04/06/1999,05/12/1989 Hepatitis B Vaccine [...] IV PROTOCOL Date: 11/29/2023 [address] Site: [place] IV Protocol: IV Diuresis IV Placement: left [...] pulmonary embolism Z86.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, secondary renal ([facility]) 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 I12.9, N18.32 Chronic kidney disease, stage 3b ([facility]) N18.32 Moderate persistent asthma without complication J45.40 Atrial flutter ([facility]) I48.92 Vestibular schwannoma ([facility]) 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 135 Tablet 3 Fgtrszzrkqs-Xgsdtipyp-Ywpufo 100-62.5-25 MCG/ACT Aerosol Powder Breath Activated (Trelegy [...] DIAGNOSTIC (RECTUM) 02/20/2015 adenomatous polyp, repeat 3 yrs/[facility] COLONOSCOPY, DIAGNOSTIC (RECTUM) 07/11/2018 adenomatous polyp, diverticulosis/[facility] COLONOSCOPY, GI REFERRAL OP 08/23/2006 adenomatous polyps--repeat [...] hx of skin ca Heart Disorder Brother [place] AGE 60 73 [place] 99 Gastro-intestinal disorder [...] AM EDT Scheduled Telephone Family Practice 65 [facility] 293 [place] [address] [place], Nurse [facility] Prac [address] [place] [address] 12/05/2023 2:00 PM EDT Office Visit Orthopaedics [facility] [address] [place] [address] Yrn Gutierrez MD [address] [place] [address] 12/12/2023 2:00 PM EDT Office Visit Orthopaedics [facility] [place] [address] Yrn Gutierrez MD [address] [place] [address] 12/14/2023 2:30 PM EDT Cardiac Studies Cardiac Studies [address] [place] [address] 12/20/2023 10:45 AM EDT Office Visit [facility] 132 [facility] [place] [address] Yrn Gutierrez MD [facility] [place] [address] 12/26/2023 9:30 AM EDT Office Visit [facility] [place] [address] Kitty Frost CRNP [facility] [place] [address] 01/09/2024 9:20 AM EDT Office Visit Family Practice [address] [place] [address] 293 [facility] [address] Anamaria Allison DO 293 [place] [address] 01/24/2024 10:45 AM EDT Office Visit [facility] [place] [address] Yrn Gutierrez MD [address] [place] [address] 02/09/2024 2:00 PM EDT Office Visit Cardiology, [facility] [address] [place] [address] Kaden Francis PA-C [address] [place] [address] 04/01/2024 2:40 PM EDT Office Visit Nephrology, [facility] 200 [facility] [place] [address] Ethan Gama MD 200 [facility] [place] [address] 04/08/2024 1:40 PM EDT Telemedicine Neurosurgery, [place] [address] [place], [place] [phone] Will Donaldson PA-C [address] [place], [place] [phone] 06/05/2024 10:45 AM EDT Office Visit Urology Jayesh Faith [address] [place] [address] [place] [address] Param Haines Jr., MD [address] [place] [address] [place] [phone] Scheduled Orders Name Type Priority Associated Diagnoses [...] Additional history exists CKD PHOS USE SMARTSET 20469 03/16/2024 07/0 02/2023, 02/18/2022, 05/06/2021, Additional history exists TSH 03/16/2024 03/16/2023, 02/09, 11/25/2021, Additional history exists Depression Screening 10/06/2024 10/06/2023 CKD HGB USE SMARTSET 54128 11/27/202411/27, 11/28/2023, 03/16/2023, Additional history exists O2 [...] D LEVEL ONCE IN A LIFETIME-USE SMARTSET# 33641 Completed 03/16/2023, 05/24/2022, 07/02/2020, Additional history exists [...] Documents on File Type Date Recorded Patient Infectious Waste Technician Expl anation Advance Directives and Living Will 04/09/2012 LIVING WILL DECLARAT ION - LIVING WILL Latest Code Status on File Code Status Date Activated Date Inactivated Comments Full Code 12/10/2007 8:45 AM 12/10/2007 3:42 PM Care Teams Barrel Filler Relationship Specialty Start Date End Date Anamaria Allison DO [address] [place] [address] PCP - General Family Medicine 10/26/22 documented as of this encounter
--- OUTSIDE RECORDS SUMMARY | 2023-12-23 14:43 | External Medical Summary ---
Author Name Unknown Address Unknown Organization K01:LABORATORY [facility] [place] - [facility] [address] [facility] [address] [place] [address] Laboratory Report Ordering Provider Test Date Status SUSIE OLSON 12/04/2023 09:13:37 Final Observation Date Value Abnormality Reference (Units ) Status BUN 12/04/2023 09:13:37 30 Above high normal 6-20 (mg/dL) Final Creatinine 12/04/2023 09:13:37 1.9 Above high normal 0.6-1.2 (mg/dL) Final Glomerular filtration rate/1.73 sq M.predicted [Volume Rate/Area] in Serum, Plasma or Blood by Creatinine-based formula (CKD-EPI) 12/04/2023 09:13:37 34 Below low normal >=60 (mL/min) Final eGFR is calculated based on the CKD-EPI 2020 equation Sodium 12/04/2023 09:13:37 141 135-146 (m mol/L) Final Potassium 12/04/2023 09:13:37 4.2 3.5-5.1 (m mol/L) Final Cl 12/04/2023 09:13:37 108 Above high normal 98 -107 (mmol/L) Final CO2 12/04/2023 09:13:37 24 22-32 (mmo l/L) Final Anion gap 12/04/2023 09:13:37 9 7-15 (mmol /L) Final Glucose 12/04/2023 09:13:37 107 70-120 (mg /dL) Final Calcium 12/04/2023 09:13:37 9.0 8.4-10.2 ( mg/dL) Final Performing Location LABORATORY [facility] [place] - [facility] [place] [address]
--- OUTSIDE RECORDS SUMMARY | 2023-12-23 14:43 | External Medical Summary | Summary of Care ---
Author Name Unknown Organization [facility] Address [address] [place] [address] Phone [phone] Care Team Providers Care Housing Officer Name Role Phone Anamaria Allison DO Primary Care Provider Reason for Visit * Reason Onset Date Comments Follow Up Immunization RSV Vaccine 11/30/2023 IV Therapy 11/30/2023 Encounter Details Date Type Department Care Team (Late st Contact Info) Description 11/30/2023 10:00 AM EDT Office Visit Family Practice 65 [facility] [place] [address] [place] [address] Anamaria Allison DO [address] [place] [address] Elevated brain natriuretic peptide (BNP) level*; Bilateral [...] Solution Reconstituted (RSV Pre-Fusion F A&B Vac [facility])Indications:N eed for RSV vaccination Inject [...] Overview: 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 therapy 08/11/2005 [...] mRNA, LNP-s, No Pre serve, 2-Dose Series (Yoopies) 08/18/2021,12/01/2020,11/10/2020 Hepatitis B, 20+ yrs 07/07/1992,02/24/1992,01/21 PPD [...] in this encounter Progress Notes * Denise hBatt RN - 11/30/2023 10:41 AM EDT IV [...] IV PROTOCOL Date: 11/30/2023 [address] Site: [place] IV Protocol: IV Diuresis IV Placement: right [...] I12.9, N18.32 Chronic kidney disease, stage 3b ([facility]) N18.32 Moderate persistent asthma without complication J45.40 Atrial flutter ([facility]) I48.92 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, group B, by GOLD 2017 classification ([facility]) J44.9 Other psoriasis L40.8 Dyslipidemia, goal LDL below 100 E78.5 Age-related osteoporosis without current pathological fracture M81.0 Other atherosclerosis of [place] arteries of extremities, bilateral legs ([facility]) 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 135 Tablet 3 Kduaiwpilfw-Pdkxverxo-Lbpnyw 100-62.5-25 MCG/ACT Aerosol Powder Breath Activated (Trelegy [...] DIAGNOSTIC (RECTUM) 02/20/2015 adenomatous polyp, repeat 3 yrs/[facility] COLONOSCOPY, DIAGNOSTIC (RECTUM) 07/11/2018 adenomatous polyp, diverticulosis/[facility] COLONOSCOPY, GI REFERRAL OP 08/23/2006 adenomatous [...] hx of skin ca Heart Disorder Brother [place] AGE 60 73 [place] 99 Gastro-intestinal disorder [...] documented in this encounter Nursing Notes * Iram Diaz LPN - 11/30/2023 9:56 AM EDT [...] AM EDT Scheduled Telephone Family Practice 65 [facility] 293 [place] [address] [place], Nurse [facility] [address] [place] [address] 12/05/2023 2:00 PM EDT Office Visit [facility] [address] [place] [address] Yrn Gutierrez MD [address] [place] [address] 12/12/2023 2:00 PM EDT Office Visit [facility] [address] [place] [address] Yrn Gutierrez MD [address] [place] [address] 12/14/2023 2:30 PM EDT Cardiac Studies Cardiac Studies [address] [place] [address] 12/20/2023 10:45 AM EDT Office Visit Orthopaedics [facility] [place] [address] Yrn Gutierrez MD [address] [place] [address] 12/26/2023 9:30 AM EDT Office Visit [facility] 132 [facility] [place] [address] Kitty Frost CRNP 132 [place] [address] 01/09/2024 9:20 AM EDT Office Visit Family Practice [address] [place] [address] 293 [place] [address] Anamaria Allison DO 293 [facility] [place] [address] 01/24/2024 10:45 AM EDT Office Visit Orthopaedics [facility] [place] [address] Yrn Gutierrez MD 132 [place] [address] 02/09/2024 2:00 PM EDT Office Visit Cardiology, [facility] [place] [address] Kaden Francis PA-C [facility] [place] [address] 04/01/2024 2:40 PM EDT Office Visit Nephrology, [facility] [place] [address] [place] [address] Ethan Gama MD [address] [place] [address] 04/08/2024 1:40 PM EDT Telemedicine Neurosurgery, [place] [address] [place] [address] Will Donaldson PA-C [address] [place] [address] 06/05/2024 10:45 AM EDT Office Visit Urology Jayesh Faith [address] [place] [address] [place] [address] Param Haines Jr., MD [address] [place] [address] [place] [address] Scheduled Orders Name Type Priority Associated Diagnoses [...] Additional history exists CKD PHOS USE SMARTSET 37507 03/16/2024 07/0 02/2023, 02/18/2022, 05/06/2021, Additional history exists TSH 03/16/2024 03/16/2023, 02/09, 11/25/2021, Additional history exists Depression Screening 10/06/2024 10/06/2023 CKD HGB USE SMARTSET 58093 11/27/202411/27, 11/28/2023, 03/16/2023, Additional history exists O2 [...] D LEVEL ONCE IN A LIFETIME-USE SMARTSET# 87831 Completed 03/16/2023, 05/24/2022, 07/02/2020, Additional history exists [...] Documents on File Type Date Recorded 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
--- OUTSIDE RECORDS SUMMARY | 2023-12-23 14:43 | External Medical Summary | Summary of Care ---
Author Name Unknown Organization [facility] Address [address] [place] [address] Phone [phone] Care Team Providers Care Bonsai Tender Name Role Phone Anamaria Richards DO Primary Care Provider [phone] Reason for Visit * Reason Onset Date Comments Nurse Documentation 12/01/202311/30 Encounter Details Date Type Department Care Team (Latest Contact Info) Description 12/01/2023 9:30 AM EDT Scheduled Telephone Family Practice [address] [phone] [place], Nurse [facility] Prac [address] [address] Bilateral edema of lower extremity* Allergies Active [...] 04/10/2007 Overview: ICD-10 update of inactive term [facility] current use of ant icoagulant therapy 08/11/2005 [...] mRNA, LNP-s, No Pre serve, 2-Dose Series (Livefyre) 08/18/2021,12/01/2020,11/10/2020 Diptheria/Tetanus (Adult) 04/06/1999,05/12/1989 Hepatitis B Vaccine [...] have lab work completed Monday morning at [facility]. Agreeable to nurse phone call Monday [...] his HCTZ every day with labs in [place] on Monday. Place on nurse call on [...] 12/05/2023 2:00 PM EDT Office Visit Orthopaedics [facility] [address] [place] [address] Yrn Gutierrez MD [address] [place] [address] 12/12/2023 2:00 PM EDT Office Visit Orthopaedics [facility] [address] [place] [address] Yrn Gutierrez MD [address] [place] [address] 12/14/2023 2:30 PM EDT Cardiac Studies Cardiac Studies [address] [place] [address] 12/20/2023 10:45 AM EDT Office Visit Orthopaedics [facility] 132 [facility] [address] Yrn Gutierrez MD [address] [place] [address] 12/26/2023 9:30 AM EDT Office Visit Sleep Disorders Ctr [facility] 132 [facility] [place] [address] Kitty Frost CRNP 132 [place] [address] 01/09/2024 9:20 AM EDT Office Visit Family Practice [address] [place] [address] 293 [place] [address] Anamaria Richards DO 293 [place] [address] 01/24/2024 10:45 AM EDT Office Visit Orthopaedics [facility] 132 [place] [address] Yrn Gutierrez MD 132 [facility] [place] [address] 02/09/2024 2:00 PM EDT Office Visit Cardiology, [facility] 132 [place] [address] Kaden Francis PA-C 132 [place] [address] 04/01/2024 2:40 PM EDT Office Visit Nephrology, [place] [address] [place] [address] Ethan Gama MD [address] [place] [address] 04/08/2024 1:40 PM EDT Telemedicine Neurosurgery, [place] [address] [place] [address] Will Donaldson PA-C [address] [place] [address] 06/05/2024 10:45 AM EDT Office Visit Urology Jayesh Faith [address] [place] [address] [place] [address] Param Haines Jr., MD [address] [place] [address] [place] [address] Scheduled Orders Name Type Priority Associated Diagnoses [...] Additional history exists CKD PHOS USE SMARTSET 17329 03/16/2024 07/0 02/2023, 02/18/2022, 05/06/2021, Additional history exists TSH 03/16/2024 03/16/2023, 02/09, 11/25/2021, Additional history exists Depression Screening 10/06/2024 10/06/2023 CKD HGB USE SMARTSET 00003 11/27/202411/27, 11/28/2023, 03/16/2023, Additional history exists O2 [...] D LEVEL ONCE IN A LIFETIME-USE SMARTSET# 11403 Completed 03/16/2023, 05/24/2022, 07/02/2020, Additional history exists [...] Documents on File Type Date Recorded 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
--- OUTSIDE RECORDS SUMMARY | 2023-12-23 14:43 | External Medical Summary | Summary of Care ---
Author Name Unknown Organization [facility] Address [address] [place] [address] Phone [phone] Care Team Providers Care Daycare Provider Name Role Phone Anamaria Allison DO Primary Care Provider [phone] Reason for Visit * Reason Comments Dosage Adjustment In Person (Anticoag Cl inic) Medication Management Encounter Details Date Type Department Care Team (Late st Contact Info) Description 11/30/2023 10:30 AM EDT Pharmacy Family Practice [address] [address] College, Pharmacist [address] [address] Encounter for medication management* Allergies Active Allergy Reactions Criticality Noted Date Comments Edgar Inhibitors Cough 12/30/2011 Sulfa Antibiotics Unknown 01/03/2019 documented as of this encounter (statuses as of 11/30/2023) Medications Medication Sig Dispensed Refills Start Date [...] daily as needed for Dizziness. 0 Active Hospital, Clinic, or Other Facility Administered Medication Ordered Dose Route Frequency Start Date End Date Status albuterol (PROVENTIL HFA) inhaler 4 PuffIndications:Obstructi ve sleep apnea syndrome,Simple chronic bronchitis (HCC) 4 Puff IN Q4H PRN 05/30/2017 Active Furosemide (Lasix) inj 60 mgIndications:Elevated brain natriuretic peptide (BNP) level,Bilateral edema of lower extremity 60 mg IV PUSH ONCE 11/30/2023 11/30/2023 Active documented as of this encounter (statuses as of 11/30/2023) Active Problems Problem Noted Date Diagnosed Date [...] as of this encounter (statuses as of 11/30/2023) Resolved Problems Problem Noted Date Diagnosed Date [...] 04/10/2007 Overview: ICD-10 update of inactive term [facility] current use of ant icoagulant therapy 08/11/2005 [...] as of this encounter (statuses as of 11/30/2023) Immunizations Name Administration Dates Next Due COVID-19 mRNA, LNP-s, No Pre serve, 2-Dose Series (MocoSpace) 08/18/2021,12/01/2020,11/10/2020 Hepatitis B, 20+ yrs 07/07/1992,02/24/1992,01/21 PPD [...] of this encounter Progress Notes * Rhonda Young RPh - 11/30/2023 10:44 AM EDT CMR completed today in Medication Management encounter (11/30/23). Pre-Administration Time Out Procedure Performed: Yes Patient Identified (Ask Name/Date of ): Yes Does the patient have a fever greater than 101 degrees today? No Patient allergic to latex? No Has the patient ever fainted after receiving an injection? No VFC Stock: No Immunization(s) verified: Yes, Immunization Name: RSV, VIS Sheet(s) given: Yes Verified Side and Site: Yes Verified Shot(s) with Parent(s)/Patient: Yes Rhonda Evans, Pharm D, BCACP Clinical Pharmacist [address] - Medication Therapy [facility] 11/30/2023, 10:44 AM Ph. [phone] documented in this encounter Plan of Treatment Upcoming Encounters Date Type Department Care Team (Late st Contact Info) Description 12/05/2023 2:00 PM EDT Office Visit [facility] [address] [place] [address] Yrn Gutierrez MD [address] [place] [address] 12/12/2023 2:00 PM EDT Office Visit [facility] [address] [place] [address] Yrn Gutierrez MD [address] [place] [address] 12/14/2023 2:30 PM EDT Cardiac Studies Cardiac Studies [address] [place] [phone] 12/20/2023 10:45 AM EDT Office Visit Orthopaedics [facility] 132 [place] [address] Yrn Gutierrez MD [address] [place] [address] 12/26/2023 9:30 AM EDT Office Visit [facility] 132 [facility] [place] [phone] Kitty Frost CRNP [facility] [place] [address] 01/09/2024 9:20 AM EDT Office Visit Family Practice [address] [place] [address] 293 [place] [address] Anamaria Allison DO 293 [place] [address] 01/24/2024 10:45 AM EDT Office Visit Orthopaedics [facility] 132 [place] [address] Yrn Gutierrez MD 132 [facility] [place] [address] 02/09/2024 2:00 PM EDT Office Visit Cardiology, [facility] 132 [place] [address] Kaden Francis PA-C 132 [facility] [place] [address] 04/01/2024 2:40 PM EDT Office Visit Nephrology, [place] [address] [place] [address] Ethan Gama MD [address] [place] [address] 04/08/2024 1:40 PM EDT Telemedicine Neurosurgery, [place] [address] [place] [address] Will Donaldson PA-C [address] [place] [address] 06/05/2024 10:45 AM EDT Office Visit Urology Jayesh Faith [address] [place] [address] [place] [address] Param Haines Jr., MD [address] [place] [address] [place] [address] Health Maintenance Due Date Last Done Comments *BISPHONATE OR OTHER ACCEPTABLE MEDICATION NEEDED FOR OSTEOPOROSIS (REFER TO SMARTSET #1146) 10/01/2022 COVID-19 Vaccine ( season) 2023 08/18/2021, 12/01/2020, 11/10/2020 Albumin/Creatinine Ratio 03/16/2024 023, 05/24/2022, 11/25/2021, Additional history exists CKD PHOS USE SMARTSET 81557 03/16/2024 07/0 02/2023, 02/18/2022, 05/06/2021, Additional history exists TSH 03/16/2024 03/16/2023, 02/09, 11/25/2021, Additional history exists Depression Screening 10/06/2024 10/06/2023 CKD HGB USE SMARTSET 93099 11/27/202411/27, 11/28/2023, 03/16/2023, Additional history exists O2 [...] D LEVEL ONCE IN A LIFETIME-USE SMARTSET# 58676 Completed 03/16/2023, 05/24/2022, 07/02/2020, Additional history exists [...] as of this encounter Visit Diagnoses Diagnosis Encounter for medication management- Primary Encounter for long-term (current) use of other medications documented in this encounter Advance Directives Documents on File Type Date Recorded Patient Facilities Planner Expl anation Advance Directives and Living Will 04/09/2012 LIVING WILL DECLARAT ION - LIVING WILL Latest Code Status on File Code Status Date Activated Date Inactivated Comments Full Code 12/10/2007 8:45 AM 12/10/2007 3:42 PM Care Teams Daycare Provider Relationship Specialty Start Date End Date Anamaria Allison DO 293 [place] [address] PCP - General Family Medicine 10/26/22 documented as of this encounter
--- OUTSIDE RECORDS SUMMARY | 2023-12-23 14:43 | External Medical Summary | Summary of Care ---
Author Name Unknown Organization [facility] Address [address] [place] [address] Phone [phone] Care Team Providers Care Supervisor Microfilm Duplicating Unit Name Role Phone Anamaria Allison DO Primary [...] COMPLETE (2D), TRANS-THORACIC Anamaria Allison DO 293 [place] [address] Referral ID Status Reason Start Date Expiration Date V isits Requested Visits Authorized [id number] Authorized Precert 11/29/2023 999 999 Reason for Visit * Reason Onset Date Comments Follow Up IV Therapy 11/29/2023 Encounter Details Date Type Department Care Team (Late st Contact Info) Description 11/29/2023 3:00 PM EDT Office Visit Family [facility] [address], [place] [facility] [phone] Anamaria Allison, DO [address] 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, group B, by GOLD 2017 classification ([facility]) J44.9 Other psoriasis L40.8 Dyslipidemia, goal LDL below 100 E78.5 Age-related osteoporosis without current pathological fracture M81.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 135 Tablet 3 Sfyylckwkrh-Qwfcpctmw-Cyuhme 100-62.5-25 MCG/ACT Aerosol Powder Breath Activated (Trelegy [...] DIAGNOSTIC (RECTUM) 02/20/2015 adenomatous polyp, repeat 3 yrs/[facility] COLONOSCOPY, DIAGNOSTIC (RECTUM) 07/11/2018 adenomatous polyp, diverticulosis/[facility] COLONOSCOPY, GI REFERRAL OP 08/23/2006 [...] hx of skin ca Heart Disorder Brother [place] AGE 60 73 [place] 99 Gastro-intestinal disorder [...] (182 lb 6.4 oz) | SpO2 98% | BMI 28.78 kg/m | BSA 1.97 m PHYSICAL [...] AM EDT Scheduled Telephone Family Practice [address] [place] [address] College, Nurse [facility] Prac [address] [place] [address], [place] [address] 12/05/2023 2:00 PM EDT Office Visit [facility] [address] [place] [address] Yrn Gutierrez MD [address] [place] [address] 12/12/2023 2:00 PM EDT Office Visit [facility] [address] [place] [address] Yrn Gutierrez MD [address] [place] [address] 12/14/2023 2:30 PM EDT Cardiac Studies Cardiac Studies [address] [place] [address] 12/20/2023 10:45 AM EDT Office Visit Orthopaedics [facility] [place] [address] Yrn Gutierrez MD [address] [facility] [place] [address] 12/26/2023 9:30 AM EDT Office Visit Sleep Disorders [facility] 132 [facility] [place] [phone] Kitty Frost CRNP [facility] [place] [address] 01/09/2024 9:20 AM EDT Office Visit Family Practice [address] [place] [address] 293 [place] [address] Anamaria Allison DO 293 [place] [address] 01/24/2024 10:45 AM EDT Office Visit [facility] 132 [facility] [place] [address] Yrn Gutierrez MD [address] [facility] [place] [address] 02/09/2024 2:00 PM EDT Office Visit Cardiology, [facility] [place] [address] Kaden Francis PA-C [address] [place] [address] 04/01/2024 2:40 PM EDT Office Visit Nephrology, [address] [place] [address] Ethan Gama MD [address] [place] [address] 04/08/2024 1:40 PM EDT Telemedicine Neurosurgery, [place] [address] [place] [address] Will Donaldson PA-C [address] [place], [place] [id number] 06/05/2024 10:45 AM EDT Office Visit Urology Jayesh Faith [address] [place] [address] [place] [address] Param Haines Jr., MD [address] [place] [address] [place] [address] Scheduled Orders Name Type Priority Associated Diagnoses [...] Additional history exists CKD PHOS USE SMARTSET 61907 03/16/2024 07/0 02/2023, 02/18/2022, 05/06/2021, Additional history exists TSH 03/16/2024 03/16/2023, 02/09, 11/25/2021, Additional history exists Depression Screening 10/06/2024 10/06/2023 CKD HGB USE SMARTSET 01188 11/27/202411/27, 11/28/2023, 03/16/2023, Additional history exists O2 [...] D LEVEL ONCE IN A LIFETIME-USE SMARTSET# 89401 Completed 03/16/2023, 05/24/2022, 07/02/2020, Additional history exists [...] Documents on File Type Date Recorded 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 [address] PCP - General Family Medicine 10/26/22 documented as of this encounter
--- OUTSIDE RECORDS SUMMARY | 2023-12-23 14:43 | External Medical Summary | Summary of Care ---
Author Name Unknown Organization [facility] Address [address] [place] [address] Phone [phone] Care Team Providers Care Cleaning Manager Name Role Phone Anamaria Richards DO Primary Care Provider [phone] Reason for Visit * Reason Onset Date Comments Nurse Documentation 12/01/202311/30 Encounter Details Date Type Department Care Team (Latest Contact Info) Description 12/01/2023 9:30 AM EDT Scheduled Telephone Family Practice [address] [phone] College, Nurse [facility] Prac [address] [address] Bilateral edema of lower extremity* Allergies Active [...] 04/10/2007 Overview: ICD-10 update of inactive term longterm current use of ant icoagulant therapy 08/11/2005 [...] mRNA, LNP-s, No Pre serve, 2-Dose Series (PrePlay) 08/18/2021,12/01/2020,11/10/2020 Diptheria/Tetanus (Adult) 04/06/1999,05/12/1989 Hepatitis B Vaccine [...] his HCTZ every day with labs in [place] on Monday. Place on nurse call on [...] Description 12/05/2023 2:00 PM EDT Office Visit [facility] [address] [place] [address] Yrn Gutierrez MD [address] [place] [address] 12/12/2023 2:00 PM EDT Office Visit [facility] [address] [place] [address] Yrn Gutierrez MD [address] [place] [address] 12/14/2023 2:30 PM EDT Cardiac Studies Cardiac Studies [address] [place] [address] 12/20/2023 10:45 AM EDT Office Visit [facility] [address] [place] [address] Yrn Gutierrez MD [address] [place] [address] 12/26/2023 9:30 AM EDT Office Visit Sleep Disorders Ctr [facility] [address] [place] [phone] Kitty Frost CRNP [address] [place] [address] 01/09/2024 9:20 AM EDT Office Visit Family Practice [address] [place] [address] 293 [place] [address] Anamaria Richards DO 293 [place] [address] 01/24/2024 10:45 AM EDT Office Visit Orthopaedics [facility] 132 [place] [address] Yrn Gutierrez MD 132 [facility] [place] [address] 02/09/2024 2:00 PM EDT Office Visit Cardiology, [facility] 132 [place] [address] Kaden Francis PALauroC [address] [place] [address] 04/01/2024 2:40 PM EDT Office Visit Nephrology, [facility] 200 [place] [address] Ethan Gama MD 200 [place] [address] 04/08/2024 1:40 PM EDT Telemedicine Neurosurgery, [place] [address] [place], [place] [phone] Will Donaldson PA-C [address] [place], [place] [phone] 06/05/2024 10:45 AM EDT Office Visit Urology Jayesh Faith [address] [place] [address] [place] [address] Param Haines Jr., MD [address] [place] [address] [place] [address] Scheduled Orders Name Type Priority Associated Diagnoses [...] Additional history exists CKD PHOS USE SMARTSET 85903 03/16/2024 07/0 02/2023, 02/18/2022, 05/06/2021, Additional history exists TSH 03/16/2024 03/16/2023, 02/09, 11/25/2021, Additional history exists Depression Screening 10/06/2024 10/06/2023 CKD HGB USE SMARTSET 54229 11/27/202411/27, 11/28/2023, 03/16/2023, Additional history exists O2 [...] D LEVEL ONCE IN A LIFETIME-USE SMARTSET# 16106 Completed 03/16/2023, 05/24/2022, 07/02/2020, Additional history exists [...] Documents on File Type Date Recorded Patient Sap Consultant Expl anation Advance Directives and Living Will 04/09/2012 LIVING WILL DECLARAT ION - LIVING WILL Latest Code Status on File Code Status Date Activated Date Inactivated Comments Full Code 12/10/2007 8:45 AM 12/10/2007 3:42 PM Care Teams Cleaning Manager Relationship Specialty Start Date End Date Anamaria Richards DO 293 [place] [address] PCP - General Family Medicine 10/26/22 documented as of this encounter
--- OUTSIDE RECORDS SUMMARY | 2023-12-23 14:44 | External Medical Summary | Summary of Care ---
Author Name Unknown Organization [facility] Address [address] [place] [address] Phone [phone] Care Team Providers Care Vacation Planner Name Role Phone Anamaria Allison DO Primary [...] COMPLETE (2D), TRANS-THORACIC Anamaria Allison DO 293 [place] [address] Referral ID Status Reason Start Date Expiration Date V isits Requested Visits Authorized [id number] Authorized Precert 11/29/2023 999 999 Reason for Visit * Reason Onset Date Comments Follow Up IV Therapy 11/29/2023 Encounter Details Date Type Department Care Team (Late st Contact Info) Description 11/29/2023 3:00 PM EDT Office Visit Family Practice [address], [place] [facility] [phone] Anamaria Allison, DO [address] [place] [facility] [place] [address] Bilateral edema of lower extremity*; 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 0 Active Fluticasone Propionate 50 MCG/ACT Nasal Suspension (Flonase) Administer 2 Sprays into each nostril in the morning. 0 11/09/2020 Active Vitamin D 50 MCG (2000 UT) Oral Capsule Take 2,000 Units by mouth every other day. 0 Active Cetirizine HCl 10 MG Oral Tablet (ZyrTEC)Indications: Cough TAKE 1 TABLET BY MOUTH EVERY DAY 90 Tablet 3 03/07/2022 Active Triamcinolone Acetonide 0.1 % External Cream (Aristocort) APPLY TOPICALLY TO AFFECTED AREA 2 TIMES A DAY. TO AFFECTED AREA. FOR PSORIASIS 80 g 5 03/07/2022 Active CPAP every night at bedtime . 0 Active Eucerin External Cream Apply topically to affected area as needed for Dry Skin. Apply to psoriasis areas 0 Active Knee Brace/Hinged Bars MediumIndications:Ch ronic pain of right knee,Primary osteoarthritis of one knee, right Wear daily when active 1 Each 0 02/13/2023 Active Levothyroxine Sodium 137 MCG Oral TabletIndications:Hy pothyroidism, unspecified type Take 1 Tablet by mouth in the morning. (at least 30 min prior to breakfast or other meds). 100 Tablet 3 05/17/2023 Active Finasteride 5 MG Oral Tablet (Proscar) Take 1 Tablet by mouth in the morning. 90 Tablet 3 05/24/2023 Active Losartan Potassium 100 MG Oral Tablet (Cozaar)Indications: HTN, goal below 150/90 TAKE 1 TABLET BY MOUTH EVERY DAY 90 Tablet 1 06/06/2023 Active Acetaminophen 500 MG Oral Tablet Take 1 Tablet by mouth. Takes 1 tablet in the morning and 1 tablet in the evening 0 Active amLODIPine Besylate 2.5 MG Oral Tablet (Norvasc) Take 1 Tablet by mouth in the morning. 100 Tablet 2 06/07/2023 Active Atorvastatin Calcium 40 MG Oral Tablet (Lipitor) Take 1 Tablet by mouth in the morning. 100 Tablet 2 06/07/2023 Active hydroCHLOROthiazide 12.5 MG Oral Capsule (Hydrodiuril)Indicat ions:HTN, goal below 150/90 Take 1 Capsule by mouth once a day on Monday, Monday, and Monday only. 42 Capsule 3 06/07/2023 Active Terazosin HCl 2 MG Oral CapsuleIndications:H TN, goal below 150/90 Take 1 Capsule by mouth daily. 100 Capsule 2 06/07/2023 Active Rivaroxaban 15 MG Oral Tablet (Xarelto)Indications :Atrial flutter, unspecified type (HCC) Take 1 Tablet by mouth daily with dinner. 100 Tablet 2 06/07/2023 Active Ipratropium-Albutero l 0.5-2.5 (3) MG/3ML Inhalation Solution (Duoneb)Indications: Cough Inhale 3 mL via nebulizer every 6 hours as needed for Congestion or Shortness of Breath. 1080 mL 1 06/07/2023 Active Metoprolol Succinate ER 25 MG Oral Tablet Extended Release 24 Hour (toPROL XL)Indications:HTN, goal below 150/90 TAKE 1.5 TABLETS BY MOUTH DAILY IN THE MORNING. TABS MAY BE CUT, DO NOT CRUSH OR CHEW. 135 Tablet 3 07/12/2023 Active Fluticasone-Umeclidi n-Vilant 100-62.5-25 MCG/ACT Aerosol Powder Breath Activated (Trelegy Ellipta)Indications: Moderate persistent asthma without complication Inhale 1 Puff by mouth in the morning. 180 Each 3 09/26/2023 Active Betamethasone Dipropionate 0.05 % External Cream (Diprosone)Indicatio ns:Psoriasis Apply topically to affected area 2 times a day 90 g 1 10/06/2023 Active predniSONE 10 MG Oral Tablet (Deltasone)Indicatio ns:Rash and nonspecific skin eruption Take 5 tabs for 2 days, 4 tabs for 2 days, 3 tabs for 2 days, 2 tabs for 2 days 1 tab for 2 days 30 Tablet 0 11/15/2023 Active Additional Information Patient not taking.Reported on 11/28/2023 Benzonatate 100 MG Oral CapsuleIndications:C OPD exacerbation (HCC) Take 1 Capsule by mouth 3 times a day as needed for Cough. 30 Capsule 1 11/20/2023 Active Additional Information Patient not taking.Reported on 11/28/2023 Potassium Chloride ER 10 MEQ Oral Capsule Extended ReleaseIndications:B ilateral edema of lower extremity Take 1 Capsule by mouth in the morning and 1 Capsule before bedtime. 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 current use of ant icoagulant therapy 08/11/2005 [...] as of this encounter (statuses as of 11/29/2023) Immunizations Name Administration Dates Next Due COVID-19 mRNA, LNP-s, No Pre serve, 2-Dose Series (IPXI) 08/18/2021,12/01/2020,11/10/2020 Diptheria/Tetanus (Adult) 04/06/1999,05/12/1989 Hepatitis B Vaccine 07/07/1992,02/24/1992,1991 Hepatitis B, 20+ yrs 07/07/1992,02/24/1992,01/21 Influenza, Whole Virus 06/16/2005 OPV - Polio Virus Vaccine (Oral) 03/11/1992 PPD 01/05/2009,11/27/2007 Pneumococcal Conjugate Vacc, 13 Valent (Prevnar) 01/27/2015 Pneumococcal Polysaccharide PPV23 (Pneumovax) 06/02/2010,11/27/2001 Seasonal Influenza Virus Vac cine, Unspecified Formulation [...] Date Recorded PHQ Adult Total Score 0 06/22/2023 Hunger Vital Sign Answer Date Recorded Within the past 12 months, y ou worried that your food would run out before you got the money to buy more. Never true 06/22/20 23 Within the past 12 months, t he food you bought just didn't last and you didn't have money to get more. Never true 06/22/2023 Sex and Gender Information Value Date Recorded [...] IV PROTOCOL Date: 11/29/2023 [address] Site: [place] IV Protocol: IV Diuresis IV Placement: left [...] additional information. 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 135 Tablet 3 Clrslhwgbgb-Jchlvriyf-Cnfjpg 100-62.5-25 MCG/ACT Aerosol Powder Breath Activated (Sonia Erickson) Inhale 1 Puff by mouth in the [...] DIAGNOSTIC (RECTUM) 02/20/2015 adenomatous polyp, repeat 3 yrs/[facility] COLONOSCOPY, DIAGNOSTIC (RECTUM) 07/11/2018 adenomatous polyp, diverticulosis/[facility] COLONOSCOPY, GI REFERRAL OP 08/23/2006 adenomatous polyps--repeat [...] hx of skin ca Heart Disorder Brother [place] AGE 60 73 [place] 99 Gastro-intestinal disorder [...] 10:00 AM EDT Office Visit Family Practice [address] [place] [address] 293 [place] [address] Anamaria Allison DO 293 [place] [address] 12/05/2023 2:00 PM EDT Office Visit [facility] [address] [place] [address] Yrn Gutierrez MD [address] [place] [address] 12/12/2023 2:00 PM EDT Office Visit [facility] [address] [place] [address] Yrn Gutierrez MD [address] [place] [address] 12/14/2023 2:30 PM EDT Cardiac Studies Cardiac Studies [address] [place] [address] 12/20/2023 10:45 AM EDT Office Visit [facility] [address] [place] [address] Yrn Gutierrez MD [address] [place] [address] 12/26/2023 9:30 AM EDT Office Visit Sleep Disorders Ctr [facility] [address] [place] [phone] Kitty Frost CRNP [address] [place] [address] 01/09/2024 9:20 AM EDT Office Visit Family Practice [address] [place] [address] 293 [place] [address] Anamaria Allison DO 293 [place] [address] 01/24/2024 10:45 AM EDT Office Visit Orthopaedics [facility] 132 [place] [address] Yrn Gutierrez MD 132 [place] [address] 02/09/2024 2:00 PM EDT Office Visit Cardiology, [facility] 132 [place] [address] Kaden Francis PALauroC 132 [place] [address] 04/01/2024 2:40 PM EDT Office Visit Nephrology, [facility] [address] [place] [address] Ethan Gama MD 200 [place] [address] 04/08/2024 1:40 PM EDT Telemedicine Neurosurgery, [place] [address] [place], [place] [phone] Will Donaldson PA-C [address] [place], [place] [phone] 06/05/2024 10:45 AM EDT Office Visit Urology Jayesh Faith [address] [place] [address] [place] [address] Yancy Chen, Param Maldonado MD [address] [place] [address] [place] [address] Scheduled Orders Name Type Priority Associated Diagnoses [...] (Patient Declined After Education) Albumin/Creatinine Ratio 03/16/2024 023, 05/24/2022, 11/25/2021, Additional history exists CKD PHOS USE SMARTSET 20990 03/16/2024 07/0 02/2023, 02/18/2022, 05/06/2021, Additional history exists TSH 03/16/2024 03/16/2023, 02/09, 11/25/2021, Additional history exists Depression Screening 10/06/2024 10/06/2023 CKD HGB USE SMARTSET 69382 11/27/202411/27, 11/28/2023, 03/16/2023, Additional history exists O2 ASSESSMENT COMPLETED IN PAST YEAR FOR COPD 11/28/2024 11/29/2023 DTaP,Tdap,and Td Vaccines (3 - Td or Tdap) 05/04/2032 05/04/2022, 12/05/2011, 04/06/1999, Additional history exists Hepatitis B Completed 07/07/1992, 06/12, 02/24/1992, Additional history exists Pneumococcal Vaccine: 65+ Years Completed 01/27/2015, 06/02/2010, 11/27/2001 DXA Scan Discontinued 11/23/2015, 04/11, 04/26/2007, Additional history exists Zoster Vaccines Completed 07/01/2020, 04/11, 06/06/2012 Alpha-1 Antitrypsin Completed 05/24/2022 VITAMIN D LEVEL ONCE IN A LIFETIME-USE SMARTSET# [id number] Completed 03/16/2023, 05/24/2022, 07/02/2020, Additional history exists [...] Documents on File Type Date Recorded Patient County Library Director 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
--- OUTSIDE RECORDS SUMMARY | 2023-12-23 14:44 | External Medical Summary | Summary of Care ---
Author Name Unknown Organization [facility] Address [address] [place] [address] Phone [phone] Care Team Providers Care Relief Mate Name Role Phone Anamaria Allison DO Primary Care Provider Reason for Visit * Reason Onset Date Comments Information 11/29/202311/28 Encounter Details Date Type Department Care Team (Late st Contact Info) Description 11/29/2023 Telephone Family Practice 65 [facility] [address] [place] [address] Anamaria Allison DO [address] [place] [address] Information (11/28) Allergies Active Allergy Reactions Criticality Noted Date [...] Additional Information Patient not taking.Reported on 11/28/2023 Hospital, Clinic, or Other Facility Administered Medication [...] 04/10/2007 Overview: 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 Agreeable to coming in for IV lasix again today. * Telephone Encounter - Anamaria Allison DO - 11/29/2023 2:33 PM EDT Have them come in for more IV lasix today. * Telephone Encounter - Irma Diaz LPN - 11/29/2023 2:15 PM EDT Spoke to via phone - pt in background also offering input. Pt weight at home today 182.6 lb. 2. Edema BLE continues - no change from yesterday. 3. Coughing continues - no change from yesterday. 4. States he is urinating - but no more than usual. 5. No chest pain. 6. No SOB - but states he is not moving around much. documented in this encounter Plan of Treatment Upcoming Encounters Date Type Department Care Team (Late st Contact Info) Description 11/29/2023 3:00 PM EDT Office Visit Family Practice [address], [place] 293 [place] [address] Anamaria Allison, DO 293 [place] [address] 12/05/2023 2:00 PM EDT [facility] 132 [facility] [place] [address] Yrn Gutierrez MD [address] [place] [address] 12/12/2023 2:00 PM EDT [facility] [place] [address] Yrn Gutierrez MD [address] [place] [address] 12/20/2023 10:45 AM EDT [facility] 132 [facility] [place] [address] Yrn Gutierrez MD [address] [place] [address] 12/26/2023 9:30 AM EDT Office Visit Sleep Disorders [facility] 132 [place] [phone] Kitty Frost CRNP [address] [place] [address] 01/09/2024 9:20 AM EDT Office Visit Family Practice [address] [place] [address] 293 [facility] [place] [phone] Anamaria Allison, DO 293 [place] [address] 01/24/2024 10:45 AM EDT Office Visit Orthopaedics [facility] [address] [place] [address] Yrn Gutierrez MD [address] [place] [address] 02/09/2024 2:00 PM EDT Office Visit Cardiology, [facility] [address] [place] [address] Kaden Francis PA-C [address] [place] [address] 04/01/2024 2:40 PM EDT Office Visit Nephrology, [facility] 200 [facility] [place] [address] Ethan Gama MD 200 [facility] [place] [address] 04/08/2024 1:40 PM EDT Telemedicine Neurosurgery, [place] [address] [place], [place] [phone] Will Donaldson PA-C [address] [place] [address] 06/05/2024 10:45 AM EDT Office Visit Urology Jayesh Fiath [address] [place] [address] [place] [address] Param Haines Jr., MD [address] [place] [address] [place] [address] Health Maintenance Due Date Last Done Comments *BISPHONATE OR OTHER ACCEPTABLE MEDICATION NEEDED FOR OSTEOPOROSIS (REFER TO SMARTSET #1146) 10/01/2022 COVID-19 Vaccine ( season) 2023 08/18/2021, 12/01/2020, 11/10/2020 Postponed from 05/12/2023 (Patient Declined After Education) Albumin/Creatinine Ratio 03/16/2024 023, 05/24/2022, 11/25/2021, Additional history exists CKD PHOS USE SMARTSET 14782 03/16/2024 07/0 02/2023, 02/18/2022, 05/06/2021, Additional history exists TSH 03/16/2024 03/16/2023, 02/09, 11/25/2021, Additional history exists Depression Screening 10/06/2024 10/06/2023 CKD HGB USE SMARTSET 78308 11/27/202411/27, 11/28/2023, 03/16/2023, Additional history exists O2 ASSESSMENT COMPLETED IN PAST YEAR FOR COPD 11/27/2024 11/28/2023 DTaP,Tdap,and Td Vaccines (3 - Td or Tdap) 05/04/2032 05/04/2022, 12/05/2011, 04/06/1999, Additional history exists Hepatitis B Completed 07/07/1992, 06/12, 02/24/1992, Additional history exists Pneumococcal Vaccine: 65+ Years Completed 01/27/2015, 06/02/2010, 11/27/2001 DXA Scan Discontinued 11/23/2015, 04/11, 04/26/2007, Additional history exists Zoster Vaccines Completed 07/01/2020, 04/11, 06/06/2012 Alpha-1 Antitrypsin Completed 05/24/2022 VITAMIN D LEVEL ONCE IN A LIFETIME-USE SMARTSET# 55296 Completed 03/16/2023, 05/24/2022, 07/02/2020, Additional history exists [...] Documents on File Type Date 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
--- OUTSIDE RECORDS SUMMARY | 2023-12-23 14:44 | External Medical Summary ---
Author Name Unknown Address Unknown Organization [id number]:LABORATORY [facility] [place] - [address] [facility] [place] [address] Laboratory Report Ordering Provider Test Date Status SUSIE OLSON 11/28/2023 12:53:49 Final Observation Date Value Abnormality Reference (Units ) Status SYNC LEUKOCYTES IN BLOOD BY AUTOMATED COUNT 11/28/2023 12:53:49 7.71 4.00-10.80 (K/uL) Final Segs 11/28/2023 12:53:49 73.5 40.0-75.0 (%) Final Lymphs % 11/28/2023 12:53:49 11.9 Below low normal 18.0-42.0 (%) Final Monos 11/28/2023 12:53:49 10.1 1.0-11.0 (%) Final Eosinophils 11/28/2023 12:53:49 1.9 0.0-6.0 (%) Final Basos 11/28/2023 12:53:49 0.4 0.0-2.0 (%) Final Immature Granulocyte, Percent 11/28/2023 12:53:49 2.2 Above high normal 0.0-2.0 (%) Final Absolute Segs 11/28/2023 12:53:49 5.66 1.80-7.70 (K/uL) Final Lymphs, absolute 11/28/2023 12:53:49 0.92 Below low normal 1.00-4.80 (K/ul) Final Monos, Abs 11/28/2023 12:53:49 0.78 0.00-1.10 (K/uL) Final Eos, Abs 11/28/2023 12:53:49 0.15 0.00-0.70 (K/uL) Final Basos, Abs 11/28/2023 12:53:49 0.03 0.00-0.20 (K/uL) Final Immature Granulocytes, Number 11/28/2023 12:53:49 0.17 0.00-0.20 (K/uL) Final Performing Location LABORATORY [facility] - [facility] [address] [place] [address]
--- OUTSIDE RECORDS SUMMARY | 2023-12-23 14:44 | External Medical Summary ---
Author Name Unknown Address Unknown Organization [id number]:LABORATORY [facility] [place] - [facility] [address] [place] [address] Laboratory Report Ordering Provider Test Date Status SUSIE OLSON 11/28/2023 12:53:49 Final Exclude Heart Failure: <300 pg/mL
Diagnose Heart Failure:
Age <50 yr: >450 pg/mL
50-75 yr: >900 pg/mL
>75 yr: >1800 pg/mL
GFR is 30-59 mL/min: >1200 pg/mL or Age- adjusted values
GFR <30 mL/min: do not use, not reliable

Prognostic threshold: 1000 pg/mL Observation Date Value Abnormality Reference (Units ) Status BNP, Pro-hormone 11/28/2023 12:53:49 990 Above high no rmal <300 (pg/mL) Final Performing Location LABORATORY [facility] [place] - [address] [place] [address]
--- OUTSIDE RECORDS SUMMARY | 2023-12-23 14:44 | External Medical Summary | Summary of Care ---
Author Name Unknown Organization [facility] Address [address] [place] [address] Phone [phone] Care Team Providers Care Optician Apprentice Name Role Phone Anamaria Allison DO Primary [...] COMPLETE (2D), TRANS-THORACIC Anamaria Allison DO 293 [place] [address] Referral ID Status Reason Start Date Expiration Date V isits Requested Visits Authorized [id number] Authorized Precert 11/29/2023 999 999 Reason for Visit * Reason Onset Date Comments Follow Up IV Therapy 11/29/2023 Encounter Details Date Type Department Care Team (Late st Contact Info) Description 11/29/2023 3:00 PM EDT Office Visit Family Practice [address], [place] [facility] [phone] Anamaria Allison, DO [address] [place] [address] Bilateral edema of lower extremity*; Hypertensive heart [...] (HCC) 60 mg IV PUSH ONCE 11/29/2023 11/30/2023 Acti ve documented as of this encounter (statuses as [...] Overview: 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 [...] mRNA, LNP-s, No Pre serve, 2-Dose Series (Vend[employer]) 08/18/2021,12/01/2020,11/10/2020 Diptheria/Tetanus (Adult) 04/06/1999,05/12/1989 Hepatitis B Vaccine [...] Time Taken Comments Blood Pressure 136/60 11/29/2023 3:22 PM EDT Pulse 70 11/29/2023 3:22 PM EDT Temperature 36.9 C (98.4 F) [...] IV PROTOCOL Date: 11/29/2023 [address] Site: [place] IV Protocol: IV Diuresis IV Placement: left [...] J45.40 Atrial flutter (HCC) 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 135 Tablet 3 Zdsydyznfxc-Akmlazngu-Jkvits 100-62.5-25 MCG/ACT Aerosol Powder Breath Activated (Sonia [...] DIAGNOSTIC (RECTUM) 02/20/2015 adenomatous polyp, repeat 3 yrs/[facility] COLONOSCOPY, DIAGNOSTIC (RECTUM) 07/11/2018 adenomatous polyp, diverticulosis/[facility] COLONOSCOPY, GI REFERRAL OP 08/23/2006 adenomatous polyps--repeat [...] hx of skin ca Heart Disorder Brother [place] AGE 60 73 [place] 99 Gastro-intestinal disorder [...] 10:00 AM EDT Office Visit Family Practice [address] [place] [address] 293 [place] [address] Anamaria Allison DO 293 [place] [address] 12/05/2023 2:00 PM EDT Office Visit [facility] [address] [place] [address] Yrn Gutierrez MD [address] [place] [address] 12/12/2023 2:00 PM EDT Office Visit [facility] [address] [place] [address] Yrn Gutierrez MD [address] [place] [address] 12/14/2023 2:30 PM EDT Cardiac Studies Cardiac Studies [address] [place] [address] 12/20/2023 10:45 AM EDT Office Visit [facility] [address] [place] [address] Yrn Gutierrez MD [address] [place] [address] 12/26/2023 9:30 AM EDT Office Visit Sleep Disorders Ctr [facility] [address] [place] [address] Kitty Frost CRNP [address] [place] [address] 01/09/2024 9:20 AM EDT Office Visit Family Practice [address] [place] [address] 293 [place] [address] Anamaria Allison DO 293 [place] [address] 01/24/2024 10:45 AM EDT Office Visit Orthopaedics [facility] 132 [place] [address] Yrn Gutierrez MD [facility] [place] [address] 02/09/2024 2:00 PM EDT Office Visit Cardiology, [facility] 132 [place] [address] Kaden Francis PALauroC 132 [facility] [place] [address] 04/01/2024 2:40 PM EDT Office Visit Nephrology, [facility] 200 [place] [address] Ethan Gama MD 200 [place] [address] 04/08/2024 1:40 PM EDT Telemedicine Neurosurgery, [place] [address] [place], [place] [phone] Will Donaldson PA-C [address] [place], [place] [address] 06/05/2024 10:45 AM EDT Office Visit Urology Jayesh Faith [address] [place] [address] [place] [address] Yancy Chen, Param Maldonado MD [address] [place] [address] [place] [address] Scheduled Orders Name Type Priority Associated Diagnoses [...] Additional history exists CKD PHOS USE SMARTSET 55533 03/16/2024 07/0 02/2023, 02/18/2022, 05/06/2021, Additional history exists TSH 03/16/2024 03/16/2023, 02/09, 11/25/2021, Additional history exists Depression Screening 10/06/2024 10/06/2023 CKD HGB USE SMARTSET 31583 11/27/202411/27, 11/28/2023, 03/16/2023, Additional history exists O2 [...] D LEVEL ONCE IN A LIFETIME-USE SMARTSET# 08094 Completed 03/16/2023, 05/24/2022, 07/02/2020, Additional history exists [...] kidney disease (HCC) documented in this encounter Advance Directives Documents on File Type Date Recorded 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
--- OUTSIDE RECORDS SUMMARY | 2023-12-23 14:44 | External Medical Summary | Summary of Care ---
Author Name Unknown Organization [facility] Address [address] [place] [address] Phone [phone] Care Team Providers Care Circuit Board Assembler Name Role Phone Anamaria Allison DO Primary [...] COMPLETE (2D), TRANS-THORACIC Anamaria Allison DO 293 [place] [address] Referral ID Status Reason Start Date Expiration Date V isits Requested Visits Authorized [id number] Authorized Precert 11/29/2023 999 999 Reason for Visit * Reason Onset Date Comments Follow Up IV Therapy 11/29/2023 Encounter Details Date Type Department Care Team (Late st Contact Info) Description 11/29/2023 3:00 PM EDT Office Visit Family Practice [address], [place] [facility] [phone] Anamaria Allison, DO [address] [place] [address] Bilateral edema of lower extremity*; Hypertensive heart [...] 04/10/2007 Overview: 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 [...] mRNA, LNP-s, No Pre serve, 2-Dose Series (AfterSteps) 08/18/2021,12/01/2020,11/10/2020 Diptheria/Tetanus (Adult) 04/06/1999,05/12/1989 Hepatitis B Vaccine [...] IV PROTOCOL Date: 11/29/2023 [address] Site: [place] IV Protocol: IV Diuresis IV Placement: left [...] J45.40 Atrial flutter (HCC) 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 135 Tablet 3 Ywqravxqbji-Zisjjsdcr-Nvfejr 100-62.5-25 MCG/ACT Aerosol Powder Breath Activated (Sonia [...] DIAGNOSTIC (RECTUM) 02/20/2015 adenomatous polyp, repeat 3 yrs/[facility] COLONOSCOPY, DIAGNOSTIC (RECTUM) 07/11/2018 adenomatous polyp, diverticulosis/[facility] COLONOSCOPY, GI REFERRAL OP 08/23/2006 adenomatous [...] hx of skin ca Heart Disorder Brother [place] AGE 60 73 [place] 99 Gastro-intestinal disorder [...] 10:00 AM EDT Office Visit Family Practice [address] [place] [address] 293 [facility] [place] [address] Anamaria Allison DO 293 [place] [address] 12/05/2023 2:00 PM EDT Office Visit [facility] [address] [place] [address] Yrn Gutierrez MD [address] [place] [address] 12/12/2023 2:00 PM EDT Office Visit [facility] [address] [place] [address] Yrn Gutierrez MD [address] [place] [address] 12/14/2023 2:30 PM EDT Cardiac Studies Cardiac Studies [address] [place] [address] 12/20/2023 10:45 AM EDT Office Visit [facility] [address] [place] [address] Yrn Gutierrez MD [address] [place] [address] 12/26/2023 9:30 AM EDT Office Visit Sleep Disorders Ctr [facility] [address] [place] [phone] Kitty Frost CRNP [address] [place] [address] 01/09/2024 9:20 AM EDT Office Visit Family Practice [address] [place] [address] 293 [facility] [place] [address] Anamaria Allison DO 293 [place] [address] 01/24/2024 10:45 AM EDT Office Visit Orthopaedics [facility] 132 [place] [address] Yrn Gutierrez MD [facility] [place] [address] 02/09/2024 2:00 PM EDT Office Visit Cardiology, [facility] 132 [place] [address] Kaden Francis PALauroC 132 [place] [address] 04/01/2024 2:40 PM EDT Office Visit Nephrology, [facility] 200 [place] [address] Ethan Gama MD 200 [place] [address] 04/08/2024 1:40 PM EDT Telemedicine Neurosurgery, [place] [address] [place], [place] [phone] Will Donaldson PA-C [address] [place], [place] [address] 06/05/2024 10:45 AM EDT Office Visit Urology Jayesh Faith [address] [place] [address] [place] [address] Yancy Chen, Param Maldonado MD [address] [place] [address] [place] [address] Scheduled Orders Name Type Priority Associated Diagnoses [...] Additional history exists CKD PHOS USE SMARTSET 17465 03/16/2024 07/0 02/2023, 02/18/2022, 05/06/2021, Additional history exists TSH 03/16/2024 03/16/2023, 02/09, 11/25/2021, Additional history exists Depression Screening 10/06/2024 10/06/2023 CKD HGB USE SMARTSET 36224 11/27/202411/27, 11/28/2023, 03/16/2023, Additional history exists O2 [...] D LEVEL ONCE IN A LIFETIME-USE SMARTSET# 17051 Completed 03/16/2023, 05/24/2022, 07/02/2020, Additional history exists [...] Documents on File Type Date Recorded 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
--- OUTSIDE RECORDS SUMMARY | 2023-12-23 14:44 | External Medical Summary ---
Author Name Unknown Address Unknown Organization K01:LAB[facility]ORY [facility] - [facility] [address] [facility] [address] [facility] [address] Laboratory Report Ordering Provider Test Date Status SUSIE OLSON 11/28/2023 12:53:49 Final Observation Date Value Abnormality Reference (Units ) Status WBC, Total 11/28/2023 12:53:49 7.71 4.00-10.80 (K/uL) Final RBC 11/28/2023 12:53:49 3.40 4.50-5.25 (M/uL) Final Hemoglobin 11/28/2023 12:53:49 10.6 Below low normal 14.0-16.8 (g/dL) Final HCT 11/28/2023 12:53:49 32.3 Below low normal 40.0-48.4 (%) Final MCV 11/28/2023 12:53:49 95.0 82.0-99.5 (fL) Final MCH 11/28/2023 12:53:49 31.2 27.0-34.0 (pg) Final MCHC 11/28/2023 12:53:49 32.8 32.0-36.0 (g/dL) Final RDW 11/28/2023 12:53:49 13.2 11.5-15.5 (%) Final Platelets 11/28/2023 12:53:49 159 140-400 (K/uL) Final MPV 11/28/2023 12:53:49 12.2 6.6-11.1 (fL) Final Nucleated erythrocytes/100 leukocytes [Ratio] in Blood by Automated count 11/28/2023 12:53:49 0 <=0 (/100 WBCs) Final Performing Location LAB[facility]ORY [facility] - [address] [place] [address] [facility] [address]
--- OUTSIDE RECORDS SUMMARY | 2023-12-23 14:44 | External Medical Summary | Summary of Care ---
Author Name Unknown Organization [facility] Address [address] [place] [address] Phone [phone] Care Team Providers Care Elevator Erector Name Role Phone Anamaria Allison DO Primary Care Provider [phone] Reason for Visit * Reason Comments Acute Encounter Details Date Type Department Care Team (Late st Contact Info) Description 11/28/2023 11:20 AM EDT Office Visit Family Practice [address] [facility] [address] [place] [address] Anamaria Allison DO [address] [place] [address] Bilateral edema of lower extremity*; Stage 3a chronic kidney disease (HCC) Allergies Active [...] Q4H PRN 05/30/2017 Active Furosemide (Lasix) inj 40 mgIndications:Bilateral edema of lower extremity,Stage 3a chronic kidney disease (HCC) 40 mg IV PUSH ONCE 11/28/2023 11/28/2023 Ended documented as of this encounter (statuses [...] No Pre serve, 2-Dose Series (Pfizer) 08/18/2021,12/01/2020,11/10/2020 Hepatitis B, 20+ yrs 07/07/1992,02/24/1992,01/21 PPD [...] Sign Reading Time Taken Comments Blood Pressure 126/60 11/28/2023 11:42 AM EDT Pulse 68 11/28/2023 11:42 AM EDT Temperature 36.1 C (96.9 F) 11/28/2023 11:42 AM E DT Respiratory Rate 20 11/28/2023 11:42 AM EDT Oxygen Saturation 98% 11/28/2023 11:42 AM EDT Inhaled Oxygen Concentration - - Weight 83.2 kg (183 lb 6.4 oz) 11/28/2023 11:42 AM EDT Height 169.5 cm (5' 6.75") 11/28/2023 11:42 AM E DT Body Mass Index 28.94 11/28/2023 11:42 AM EDT documented in this encounter Progress Notes * Denise Bhatt RN - 11/28/2023 12:53 PM EDT LAB DRAWN AND SENT TO [facility]. IV PROTOCOL Date: 11/28/2023 65 Forward Site: [place]bot IV Protocol: IV Diuresis Medication: Other Lasix Disposition: Home Follow Up: Phone follow up Notes: IV #22G started right antecubital. Blood drawn for lab work. Flushed. Withdrew 5 cc blood and discarded. Lasix 40 mg given IV push over 4 minutes, IV flushed and then d/c'd. Told pt we would call tomorrow to see how he is doing. IV ADMINISTRATION DOCUMENTATION After identifying patient by name and date of , IV catheter was inserted into Right Anticubital Vein with a positive blood return noted. Infusion start time 12:35 PM-IV push Lasix Infusion stop time 12:40PM. IV Ayaan: Discontinued Total volume infused was n/a Total time of infusion was n/a Educated patient on signs and symptoms to report. Instructed to call clinic with any problems or concerns regarding IV therapy. See Documentation Flowsheet for additional information. Denise Bhatt RN * Anamaria Allison, DO - 11/28/2023 11:50 AM EDT SUBJECTIVE: Chief Complaint Patient presents with Acute HPI: Armani Woods is a 88 year old male who presents today with complaints of cough. He notes that he will cough all night and all afternoon. He will get up some mucous. He has not required more pillows in bed, he is a side sleeper and has been able to do so. He notes he is a little short of breath. No wheezing. He is having swelling in his ankles. He felt that they seemed to be tight in his sh oes a week ago but notes that now he cannot get them in his shoes. He is wearing his slippers today. No abdominal tightness or tenderness. No runny nose. He has some sore throat for coughing. states he is using a lot of hankies. 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 135 Tablet 3 Boqhgjrxhsa-Hohbbzbrt-Zssmvl 100-62.5-25 MCG/ACT Aerosol Powder Breath Activated (Trelegy [...] DIAGNOSTIC (RECTUM) 02/20/2015 adenomatous polyp, repeat 3 yrs/[facility] COLONOSCOPY, DIAGNOSTIC (RECTUM) 07/11/2018 adenomatous polyp, diverticulosis/[facility] COLONOSCOPY, GI REFERRAL OP 08/23/2006 [...] hx of skin ca Heart Disorder Brother [place] AGE [age] [place] 89 Gastro-intestinal disorder [...] fatigue, fever and unexpected weight change. Respiratory: Positive for cough and shortness of breath. Negative for chest tightness and wheezing. Cardiovascular: Positive for leg swelling. Negative for chest pain and palpitations. Gastrointestinal: Negative for abdominal pain, constipation, diarrhea, nausea and vomiting. Musculoskeletal: Negative for arthralgias, gait problem and joint swelling. Skin: Negative for color change, pallor and rash. OBJECTIVE: BP 126/60 (BP Site: Left Arm, BP Position: Sitting, BP Cuff Size: Regular) | Pulse 68 | Temp 36.1 C (96.9 F) (Tympanic) | Resp 20 | Ht 1.695 m (5' 6.75") | Wt 83.2 kg (183 lb 6.4 oz) | SpO2 98% |BMI 28.94 kg/m | BSA 1.98 m PHYSICAL EXAM: Physical Exam Constitutional: General: [...] range of motion. Right lower leg: Edema (+3 pitting) present. Left lower leg: Edema (+3 pitting) present. Skin: General: Skin is warm and dry. Coloration: Skin is not pale. Findings: No erythema or rash. Neurological: Mental Status: He is alert and oriented to person, place, and time. ASSESSMENT/PLAN: (R60.0) Bilateral edema of lower extremity (primary encounter diagnosis) Plan: BNP, NT-PRO, CBC WITH WBC DIFFERENTIAL, BASIC METABOLIC PANEL, Furosemide (Lasix) inj 40 mg, BNP, NT-PRO, CBC WITH WBC DIFFERENTIAL, BASIC METABOLIC PANEL, SALINE AYAAN, SALINE AYAAN, DISCONTINUE Lab studies today. CXR with concern for fluid overload. IV lasix today. Will await results. Will likely need repeat but will see how he responds. (N18.31) Stage 3a chronic kidney disease (HCC) Plan: Furosemide (Lasix) inj 40 mg Lasix today. Follow-up: await results Total time today including reviewing chart before the visit, pertinent labs, imaging reports, face to face time, and documentation time was 32 minutes. Anamaria Allison DO documented in this encounter Nursing Notes * Irma Diaz LPN - 11/28/2023 11:39 AM EDT Patient here for acute visit. Reports ongoing cough. States he is coughing all. States cough is productive with clear phlegm. Denies SOB. Reports both ankles are swollen. Also reports right knee painand swelling from Sierra's cyst. Reports he has had diarrhea but stools have improved. documented in this encounter Plan of Treatment Upcoming Encounters Date Type Department Care Team (Late st Contact Info) Description 12/05/2023 2:00 PM EDT Office Visit [facility] [address] [place] [address] Yrn Gutierrez MD [address] [place] [address] 12/12/2023 2:00 PM EDT Office Visit [facility] [address] [place] [address] Yrn Gutierrez MD [address] [place] [address] 12/20/2023 10:45 AM EDT Office Visit [facility] [address] [place] [address] Yrn Gutierrez MD [address] [place] [address] 12/26/2023 9:30 AM EDT Office Visit Sleep Disorders Ctr [facility] [address] [place] [phone] Kitty Frost CRNP [address] [place] [address] 01/09/2024 9:20 AM EDT Office Visit Family Practice [address] [place] [address] 293 [place] [address] Anamaria Allison DO [address] [place] [address] 01/24/2024 10:45 AM EDT Office Visit Orthopaedics [facility] [address] [place] [address] Yrn Gutierrez MD [address] [place] [address] 02/09/2024 2:00 PM EDT Office Visit Cardiology, [facility] [address] [place] [address] Kaden Francis PAKash [address] [place] [address] 04/01/2024 2:40 PM EDT Office Visit Nephrology, [facility] [address] [facility] [place] [address] Ethan Gama MD [address] [place] [address] 04/08/2024 1:40 PM EDT Telemedicine Neurosurgery, [place] [address], [place] [phone] Will Donaldson PA-C [address] [place], [place] [phone] 06/05/2024 10:45 AM EDT Office [facility] [facility] [address] [place] [address] Yancy Chen, Param Lemons MD 27 [facility] [address] [place] [address] Scheduled Orders Name Type Priority Associated Diagnoses Orde r Schedule SALINE AYAAN Procedures Routine Bilateral edema of lower extremity Ordered: 11/29/2023 SALINE AYAAN, DISCONTINUE Procedures Routine Bilateral edema of lower extremity Ordered: 11/29/2023 Health Maintenance Due Date Last Done Comments *BISPHONATE OR OTHER ACCEPTABLE MEDICATION NEEDED FOR OSTEOPOROSIS (REFER TO SMARTSET #1146) 10/01/2022 COVID-19 Vaccine ( season) 2023 08/18/2021, 12/01/2020, 11/10/2020 Postponed from 05/12/2023 (Patient Declined After Education) Albumin/Creatinine Ratio 03/16/2024 023, 05/24/2022, 11/25/2021, Additional history exists CKD PHOS USE SMARTSET 82334 03/16/2024 07/0 02/2023, 02/18/2022, 05/06/2021, Additional history exists TSH 03/16/2024 03/16/2023, 02/09, 11/25/2021, Additional history exists Depression Screening 10/06/2024 10/06/2023 CKD HGB USE SMARTSET 91130 11/27/202411/27, 11/28/2023, 03/16/2023, Additional history exists O2 [...] D LEVEL ONCE IN A LIFETIME-USE SMARTSET# 57159 Completed 03/16/2023, 05/24/2022, 07/02/2020, Additional history exists Influenza Vaccine (FLU shot) Completed 06/22/2023, 06/01/2022, 05/31/2021, Additional history exists GARDASIL-HPV IMMUNIZATION SERIES Aged Out No longer eligible based on patient's age to complete this topic MENINGOCOCCAL (MENACTRA/MENVEO) Aged Out No longer eligible based on patient's age to complete this topic documented as of this encounter Medical Devices Not on filedocumented as of this encounter Procedures Procedure Name Priority Date/Time Associated Diagnosis Comments DIFFERENTIAL, AUTOMATED Routine 11/28/2023 12:53 PM EDT Bilateral edema of lower extremity BNP (NT-PROBNP) Routine 11/28/2023 12:53 PM EDT Bilateral edema of lower extremity BASIC METABOLIC PANEL Routine 11/28/2023 12:53 PM EDT Bilateral edema of lower extremity CBC Routine 11/28/2023 12:53 PM EDT Bilateral edema of lower extremity CBC Routine 11/28/2023 12:53 PM EDT Bilateral edema of lower extremity documented in this encounter Results * (ABNORMAL) DIFFERENTIAL, AUTOMATED (11/28/2023 12:53 PM EDT) WBC 7.71 4.00 - 10.80 K/uL 11/28/2023 11:54 PM EDT LAB[facility]AT[facility] Neutrophils % 73.5 40.0 - 75.0 % 11/28/2023 11:54 PM EDT [facility] Lymphocytes % 11.9(L) 18.0 - 42.0 % 11/28/2023 11:54 PM EDT [facility] Monocytes % 10.1 1.0 - 11.0 % 11/28/2023 11:54 PM EDT [facility] Eosinophils % 1.9 0.0 - 6.0 % 11/28/2023 11:54 PM EDT [facility] Basophils % 0.4 0.0 - 2.0 % 11/28/2023 11:54 PM EDT [facility] Immature Granulocytes % 2.2(H) 0.0 - 2.0 % 11/28/2023 11:54 PM EDT LAB[facility] Absolute Neutrophils 5.66 1.80 - 7.70 K/uL 11/28/2023 11:54 PM EDT LAB[facility] Absolute Lymphocytes 0.92(L) 1.00 - 4.80 K/ul 11/28/2023 11:54 PM EDT LAB[facility] Absolute Monocytes 0.78 0.00 - 1.10 K/uL 11/28/2023 11:54 PM EDT LAB[facility] Absolute Eosinophils 0.15 0.00 - 0.70 K/uL 11/28/2023 11:54 PM EDT LAB[facility] Absolute Basophils 0.03 0.00 - 0.20 K/uL 11/28/2023 11:54 PM EDT LAB[facility] Absolute Immature Granulocytes 0.17 0.00 - 0.20 K/uL 11/28/2023 11:54 PM EDT [facility] Blood Venous blood specimen / Unknown Venipuncture / Unknown 11/28/2023 12:53 PM EDT 11/28/2023 12:53 PM EDT Anamaria Allison DO LAB BLOOD ORDERABLES LABORATORY [facility] [address] [place] [address] * (ABNORMAL) CBC (11/28/2023 12:53 PM EDT) WBC 7.71 4.00 - 10.80 K/uL 11/28/2023 11:54 PM EDT [facility] RBC 3.40 4.50 - 5.25 M/uL 11/28/2023 11:54 PM EDT [facility] HGB 10.6(L) 14.0 - 16.8 g/dL 11/28/2023 11:54 PM EDT [facility] HCT 32.3(L) 40.0 - 48.4 % 11/28/2023 11:54 PM EDT [facility] MCV 95.0 82.0 - 99.5 fL 11/28/2023 11:54 PM EDT LABORATORY [facility] MCH 31.2 27.0 - 34.0 pg 11/28/2023 11:54 PM EDT LABORATORY [facility] MCHC 32.8 32.0 - 36.0 g/dL 11/28/2023 11:54 PM EDT LABORATORY [facility] RDW 13.2 11.5 - 15.5 % 11/28/2023 11:54 PM EDT LABORATORY [facility] PLT 159 140 - 400 K/uL 11/28/2023 11:54 PM EDT LABORATORY [facility] MPV 12.2 6.6 - 11.1 fL 11/28/2023 11:54 PM EDT LABORATORY [facility] nRBCs 0 <=0 /100 WBCs 11/28/2023 11:54 PM EDT LABORATORY [facility] Blood Venous blood specimen / Unknown Venipuncture / Unknown 11/28/2023 12:53 PM EDT 11/28/2023 12:53 PM EDT Anamaria Allison DO LAB BLOOD ORDERABLES LABORATORY [facility] [address] [place] [address] * (ABNORMAL) BASIC METABOLIC PANEL (11/28/2023 12:53 PM EDT) BUN 22(H) 6 - 20 mg/dL 11/28/2023 11:40 PM EDT LAB[facility] Creatinine 1.4(H) 0.6 - 1.2 mg/dL 11/28/2023 11:40 PM EDT LABORATORY GM Estimated Glomerular Filtration Rate 49(L) >=60 mL/min 11/28/2023 11:40 PM EDT LAB[facility] Comment:eGFR is calculated b ased on the CKD-EPI 2020 equation Sodium 140 135 - 146 mmol/L 11/28/2023 11:40 PM EDT [facility] Potassium 4.5 3.5 - 5.1 mmol/L 11/28/2023 11:40 PM EDT LAB[facility] Comment:Result may be falsel y elevated due to hemolysis. Chloride 105 98 - 107 mmol/L 11/28/2023 11:40 PM EDT LABORATORY C CO2 28 22 - 32 mmol/L 11/28/2023 11:40 PM EDT LABORATORY C Anion Gap 7 7 - 15 mmol/L 11/28/2023 11:40 PM EDT LABORATORY C Glucose 85 70 - 120 mg/dL 11/28/2023 11:40 PM EDT LABORATORY C Calcium 8.5 8.4 - 10.2 mg/dL 11/28/2023 11:40 PM EDT LABORATORY C Blood Venous blood specimen / Unknown Venipuncture / Unknown 11/28/2023 12:53 PM EDT 11/28/2023 12:53 PM EDT Anamaria Allison [email or web address] LAB BLOOD ORDERABLES Performing Organization Address [facility] Co de Phone Number LABORATORY [facility] [address] [place] [address] * (ABNORMAL) BNP, NT-PRO (11/28/2023 12:53 PM EDT) BNP, NT-Pro 990(H) <300 pg/mL 11/28/2023 11:40 PM EDT LABORATORY [facility] Blood Venous blood specimen / Unknown Venipuncture / Unknown 11/28/2023 12:53 PM EDT 11/28/2023 12:53 PM EDT Narrative LABORATORY [facility] - 11/28/2023 11:40 PM EDT Exclude Heart Failure: <300 pg/mL Diagnose Heart Failure: Age <50 yr: >450 pg/mL 50-75 yr: >900 pg/mL >75 yr: >1800 pg/mL GFR is 30-59 mL/min: >1200 pg/mL or Age-adjusted values GFR <30 mL/min: do not use, not reliable Prognostic threshold: 1000 pg/mL Anamaria Allison DO LAB BLOOD ORDERABLES Performing Organization Address [facility] Co de Phone Number LABORATORY [address] [address] documented in this encounter Visit Diagnoses Diagnosis Bilateral edema of lower extremity- Primary Edema Stage 3a chronic kidney disease (HCC) documented in this encounter Administered Medications Inactive Administered Medications - up to 3 most recent administrations Medication Order MAR Action Action Date Dose Rate Site Furosemide (Lasix) inj 40 mg 40 mg, IV Push, ONCE, On Mon11/28/23 at 1245, For 1 dose Given 11/28/2023 12:57 PM EDT 40 mg Antecubital Right documented in this encounter Advance Directives Documents on File Type Date Recorded Patient Paving Machine Operator Expl anation Advance Directives and Living Will 04/09/2012 LIVING WILL DECLARAT ION - LIVING WILL Latest Code Status on File Code Status Date Activated Date Inactivated Comments Full Code 12/10/2007 8:45 AM 12/10/2007 3:42 PM Care Teams Elevator Erector Relationship Specialty Start Date End Date Anamaria Allison DO [address] [facility] [place] [address] PCP - General Family Medicine 10/26/22 documented as of this encounter
--- OUTSIDE RECORDS SUMMARY | 2023-12-23 14:44 | External Medical Summary | Summary of Care ---
Author Name Unknown Organization [facility] Address [address] [place] [address] Phone [phone] Care Team Providers Care Bag Machine Operator Helper Name Role Phone YesikawinterAnamaria DO Primary Care Provider [phone] Reason for Visit * Reason Onset Date Comments Nurse Documentation 11/23/202311/22 Encounter Details Date Type Department Care Team (Late st Contact Info) Description 11/23/2023 10:00 AM EDT Scheduled Telephone Family Practice [address] [phone] College, Nurse [facility] Prac [address] [address] Allergies Active Allergy Reactions Criticality Noted Date Comments Edgar Inhibitors Cough 12/30/2011 Sulfa Antibiotics Unknown 01/03/2019 documented as of this encounter (statuses as of 11/28/2023) Medications Medication Sig Dispensed Refills Start Date [...] Additional Information Patient not taking.Reported on 11/28/2023 Cefdinir 300 MG Oral Capsule (Omnicef)Indications :COPD exacerbation (HCC) Take 1 Capsule by mouth in the morning and 1 Capsule before bedtime. Do all this for 7 days. For 10 days.. 14 Capsule 0 11/20/2023 Ciprofloxacin HCl 0.3 % Ophthalmic Solution (Ciloxan)Indications :Acute bacterial conjunctivitis of both eyes Instill 1 Drop into both eyes in the morning and 1 Drop at noon and 1 Drop in the evening and 1 Drop before bedtime. Do all this for 7 days. 10 mL 0 11/20/2023 4 Hospital, Clinic, or Other Facility Administered Medication Ordered Dose Route Frequency Start Date End Date Status albuterol (PROVENTIL HFA) inhaler 4 PuffIndications:Obstructive sleep apnea syndrome,Simple chronic bronchitis (HCC) 4 Puff IN Q4H PRN 05/30/2017 Active documented as of this encounter (statuses as of 11/28/2023) Active Problems Problem Noted Date Diagnosed Date [...] as of this encounter (statuses as of 11/28/2023) Resolved Problems Problem Noted Date Diagnosed Date [...] as of this encounter (statuses as of 11/28/2023) Immunizations Name Administration Dates Next Due COVID-19 [...] Telephone Encounter - Irma Diaz LPN - 11/28/2023 12:27 PM EDT Patient in for OV with Dr. Bobby today. * Telephone Encounter - Anamaria Allison DO - 11/28/2023 8:40 AM EDT Please see how pt is doing today. * Telephone Encounter - Irma Diaz LPN - 11/23/2023 10:31 AM EDT Nurse phone call to patient. Spoke to Shaina with patient in the background. Pt continues to have diarrhea, reports 4-5 small watery liquid stools so far today. Reports stools are not black but are very dark brown. States hetook imodium without relief. Also had these symptoms throughout the day yesterday. Pt is concerned that stools are dark. Denies nausea, vomiting, abdominal pain, fever. States he is drinking adequate fluids. Reports periodic cough continues. Reports pink eye is a lot better. Pharmacy confirmed - [facility] in [place]. documented in this encounter Plan of Treatment Upcoming Encounters Date Type Department Care Team (Late st Contact Info) Description 12/05/2023 2:00 PM EDT Office Visit [facility] [address] [place] [address] Yrn Gutierrez MD [address] [place] [address] 12/12/2023 2:00 PM EDT Office Visit [facility] [address] [place] [address] Yrn Gutierrez MD [address] [place] [address] 12/20/2023 10:45 AM EDT Office Visit [facility] [address] [place] [address] Yrn Gutierrez MD [address] [place] [address] 12/26/2023 9:30 AM EDT Office Visit Sleep Disorders Ctr [facility] 132 [facility] [phone] Kitty Frost CRNP 132 [facility] [place] [address] 01/09/2024 9:20 AM EDT Office Visit Family Practice [address] [place] [address] 293 [place] [address] Anamaria Allison DO [address] [place] [address] 01/24/2024 10:45 AM EDT Office Visit Orthopaedics [facility] [address] [facility] [place] [address] Yrn Gutierrez MD 132 [facility] [place] [address] 02/09/2024 2:00 PM EDT Office Visit Cardiology, [facility] 132 [facility] [place] [address] Kaden Francis PAKash 132 [facility] [place] [address] 04/01/2024 2:40 PM EDT Office Visit Nephrology, [place] [address] [place], [place] [address] Ethan Gama MD [address] [place] [address] 04/08/2024 1:40 PM EDT Telemedicine Neurosurgery, [place] [address] [place], [place] [phone] Will Donaldson PA-C [address] [place], [place] [phone] 06/05/2024 10:45 AM EDT Office Visit Urology Jayesh Faith [address] [place] [address] Param Haines Jr., MD [address] [place] [address] Health Maintenance Due Date Last Done Comments *BISPHONATE OR OTHER ACCEPTABLE MEDICATION NEEDED FOR OSTEOPOROSIS (REFER TO SMARTSET #1146) 10/01/2022 COVID-19 Vaccine ( season) 2023 08/18/2021, 12/01/2020, 11/10/2020 Postponed from 05/12/2023 (Patient Declined After Education) Albumin/Creatinine Ratio 03/16/2024 023, 05/24/2022, 11/25/2021, Additional history exists CKD HGB USE SMARTSET 65331 03/16/202403/16, 03/16/2023, 05/24/2022, Additional history exists CKD PHOS USE SMARTSET 47405 03/16/2024 07/0 02/2023, 02/18/2022, 05/06/2021, Additional history exists TSH 03/16/2024 03/16/2023, 02/09, 11/25/2021, Additional history exists Depression Screening 10/06/2024 10/06/2023 O2 ASSESSMENT COMPLETED IN PAST YEAR FOR COPD 11/19/2024 11/20/2023 DTaP,Tdap,and Td Vaccines (3 - Td or Tdap) 05/04/2032 05/04/2022, 12/05/2011, 04/06/1999, Additional history exists Hepatitis B Completed 07/07/1992, 06/12, 02/24/1992, Additional history exists Pneumococcal Vaccine: 65+ Years Completed 01/27/2015, 06/02/2010, 11/27/2001 DXA Scan Discontinued 11/23/2015, 04/11, 04/26/2007, Additional history exists Zoster Vaccines Completed 07/01/2020, 04/11, 06/06/2012 Alpha-1 Antitrypsin Completed 05/24/2022 VITAMIN D LEVEL ONCE IN A LIFETIME-USE SMARTSET# 29473 Completed 03/16/2023, 05/24/2022, 07/02/2020, Additional history exists [...] Documents on File Type Date Recorded Patient Ointment Mill Tender Expl anation Advance Directives and Living Will 04/09/2012 LIVING WILL DECLARAT ION - LIVING WILL Latest Code Status on File Code Status Date Activated Date Inactivated Comments Full Code 12/10/2007 8:45 AM 12/10/2007 3:42 PM Care Teams Bag Machine Operator Helper Relationship Specialty Start Date End Date Anamaria Allison DO [address] [place] [address] PCP - General Family Medicine 10/26/22 documented as of this encounter
--- OUTSIDE RECORDS SUMMARY | 2023-12-23 14:44 | External Medical Summary ---
Author Name Unknown Address Unknown Organization K01:[facility] - [facility] [address] [facility] [address] Laboratory Report Ordering Provider Test Date Status SUSIE OLSON 11/28/2023 12:53:49 Final Observation Date Value Abnormality Reference (Units ) Status BUN 11/28/2023 12:53:49 22 Above high normal 6-20 (mg/dL) Final Creatinine 11/28/2023 12:53:49 1.4 Above high normal 0.6-1.2 (mg/dL) Final Glomerular filtration rate/1.73 sq M.predicted [Volume Rate/Area] in Serum, Plasma or Blood by Creatinine-based formula (CKD-EPI) 11/28/2023 12:53:49 49 Below low normal >=60 (mL/min) Final eGFR is calculated based on the CKD-EPI 2020 equation SODIUM 11/28/2023 12:53:49 140 135-146 (m mol/L) Final Potassium 11/28/2023 12:53:49 4.5 3.5-5.1 (m mol/L) Final Result may be falsely elevat ed due to hemolysis. Cl 11/28/2023 12:53:49 105 98-107 (mm ol/L) Final CO2 11/28/2023 12:53:49 28 22-32 (mmo l/L) Final Anion gap 11/28/2023 12:53:49 7 7-15 (mmol /L) Final Glucose 11/28/2023 12:53:49 85 70-120 (mg /dL) Final Calcium 11/28/2023 12:53:49 8.5 8.4-10.2 ( mg/dL) Final Performing Location [facility] - [address] [place] [address]
--- OUTSIDE RECORDS SUMMARY | 2023-12-23 14:44 | External Medical Summary | Summary of Care ---
Author Name Unknown Organization [facility] Address [address] [place] [address] Phone [phone] Care Team Providers Care Business Banking Sales Assistant Name Role Phone Anamaria Allison DO Primary [...] COMPLETE (2D), TRANS-THORACIC Anamaria Allison DO 293 [facility] [place] [address] Referral ID Status Reason Start Date Expiration Date V isits Requested Visits Authorized [id number] Authorized Precert 11/29/2023 999 999 Reason for Visit * Reason Onset Date Comments Follow Up IV Therapy 11/29/2023 Encounter Details Date Type Department Care Team (Late st Contact Info) Description 11/29/2023 3:00 PM EDT Office Visit Family [facility] [address], [place] [facility] [phone] Anamaria Allison, DO 293 [facility] [place] [address] Bilateral edema of lower extremity*; Hypertensive heart [...] 04/10/2007 Overview: 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 135 Tablet 3 Nmyjpwydhfs-Qitshlbyl-Jenoej 100-62.5-25 MCG/ACT Aerosol Powder Breath Activated ([place] [...] DIAGNOSTIC (RECTUM) 02/20/2015 adenomatous polyp, repeat 3 yrs/[facility] COLONOSCOPY, DIAGNOSTIC (RECTUM) 07/11/2018 adenomatous polyp, diverticulosis/[facility] COLONOSCOPY, GI REFERRAL OP 08/23/2006 [...] hx of skin ca Heart Disorder Brother [place] AGE 60 73 [place] 99 Gastro-intestinal disorder [...] 10:00 AM EDT Office Visit Family Practice [address] [place] [address] 293 [place] [address] Anamaria Allison DO 293 [facility] [place] [address] 12/05/2023 2:00 PM EDT Office Visit [facility] [address] [place] [address] Yrn Gutierrez MD [address] [place] [address] 12/12/2023 2:00 PM EDT Office Visit [facility] [address] [place] [address] Yrn Gutierrez MD [address] [place] [address] 12/14/2023 2:30 PM EDT Cardiac Studies Cardiac Studies [address] [place] [address] 12/20/2023 10:45 AM EDT Office Visit [facility] [address] [place] [address] Yrn Gutierrez MD [address] [place] [address] 12/26/2023 9:30 AM EDT Office Visit Sleep Disorders [facility]tr [facility] [address] [place] [phone] Kitty Frost CRNP [address] [place] [address] 01/09/2024 9:20 AM EDT Office Visit Family Practice [address] [place] [address] 293 [place] [address] Anamaria Allison DO 293 [facility] [place] [address] 01/24/2024 10:45 AM EDT Office Visit Orthopaedics [facility] 132 [place] [address] Yrn Gutierrez MD [facility] [place] [address] 02/09/2024 2:00 PM EDT Office Visit Cardiology, [facility] 132 [place] [address] Kaden Francis PALauroC 132 [facility] [address] 04/01/2024 2:40 PM EDT Office Visit Nephrology, [facility] [address] [place] [address] Ethan Gama MD 200 [facility] [place] [facility] [place] [address] 04/08/2024 1:40 PM EDT Telemedicine Neurosurgery, [place] [address] [place], [place] [phone] Will Donaldson PA-C [address] [place], [place] [phone] 06/05/2024 10:45 AM EDT Office Visit Urology Jayesh Faith [address] [place] [address] [place] [address] Yancy Chen, Param Maldonado MD [address] [place] [address] [place] [address] Scheduled Orders Name Type Priority Associated Diagnoses [...] Additional history exists CKD PHOS USE SMARTSET 04234 03/16/2024 07/0 02/2023, 02/18/2022, 05/06/2021, Additional history exists TSH 03/16/2024 03/16/2023, 02/09, 11/25/2021, Additional history exists Depression Screening 10/06/2024 10/06/2023 CKD HGB USE SMARTSET 77940 11/27/202411/27, 11/28/2023, 03/16/2023, Additional history exists O2 [...] D LEVEL ONCE IN A LIFETIME-USE SMARTSET# 60623 Completed 03/16/2023, 05/24/2022, 07/02/2020, Additional history exists [...] Documents on File Type Date Recorded Patient Credit Control Manager Expl anation Advance Directives and Living Will 04/09/2012 LIVING WILL DECLARAT ION - LIVING WILL Latest Code Status on File Code Status Date Activated Date Inactivated Comments Full Code 12/10/2007 8:45 AM 12/10/2007 3:42 PM Care Teams Business Banking Sales Assistant Relationship Specialty Start Date End Date Anamaria Allison DO 293 [facility] [place] [address] PCP - General Family Medicine 10/26/22 documented as of this encounter
--- OUTSIDE RECORDS SUMMARY | 2023-12-23 14:44 | External Medical Summary | Summary of Care ---
Author Name Unknown Organization [facility] Address [address] [place] [address] Phone [phone] Care Team Providers Care Real Estate Services Administrator Name Role Phone YesikawinterAnamaria DO Primary Care Provider [phone] Reason for Visit * Reason Onset Date Comments Nurse Documentation 11/23/202311/22 Encounter Details Date Type Department Care Team (Late st Contact Info) Description 11/23/2023 10:00 AM EDT Scheduled Telephone Family Practice [address] [phone] College, Nurse [facility] Prac [address] [address] Allergies Active Allergy Reactions Criticality Noted Date [...] 2 days 30 Tablet 0 11/15/2023 Active Benzonatate 100 MG Oral CapsuleIndications:C OPD exacerbation (HCC) Take 1 Capsule by mouth 3 times a day as needed for Cough. 30 Capsule 1 11/20/2023 Active Cefdinir 300 MG Oral Capsule (Omnicef)Indications :COPD [...] for 7 days. 10 mL 0 11/20/2023 03/18/202 4 Hospital, Clinic, or Other Facility Administered [...] is a lot better. [facility] [place] documented in this encounter Plan of Treatment Upcoming Encounters Date Type Department Care Team (Late st Contact Info) Description 12/05/2023 2:00 PM EDT Office Visit [facility] [address] [place] [address] Yrn Gutierrez MD [address] [place] [address] 12/12/2023 2:00 PM EDT Office Visit [facility] [address] [place] [address] Yrn Gutierrez MD [address] [place] [address] 12/20/2023 10:45 AM EDT Office Visit [facility] 132 [facility] [place] [address] Yrn Gutierrez MD [address] [place] [address] 12/26/2023 9:30 AM EDT Office Visit Sleep Disorders Ctr [facility] 132 [facility] [place] [phone] Kitty Frost CRNP [address] [place] [address] 01/09/2024 9:20 AM EDT Office Visit Family Practice [address] [place] [address] 293 [facility] [place] [address] Anamaria Allison DO 293 [place] [address] 01/24/2024 10:45 AM EDT Office Visit Orthopaedics [facility] [address] [employer] [address] Yrn Gutierrez MD 132 [place] [address] 02/09/2024 2:00 PM EDT Office Visit Cardiology, [facility] [address] [employer] [address] Kaden Francis PA-C 132 [place] [address] 04/01/2024 2:40 PM EDT Office Visit Nephrology, [facility] 200 [place] [address] Ethan Gama MD 200 [place] [address] 04/08/2024 1:40 PM EDT Telemedicine Neurosurgery, [place] [address] [place] [address] Will Donaldson PA-C [address] [place], [place] [id number] 06/05/2024 10:45 AM EDT Office Visit Urology Jayesh Faith [address] [place] [address] [place] [address] Param Haines Jr., MD [address] [place] [address] [place] [phone] Health Maintenance Due Date Last Done Comments *BISPHONATE OR OTHER ACCEPTABLE MEDICATION NEEDED FOR OSTEOPOROSIS (REFER TO SMARTSET #1146) 10/01/2022 COVID-19 Vaccine ( season) 2023 08/18/2021, 12/01/2020, 11/10/2020 Albumin/Creatinine Ratio 03/16/2024 023, 05/24/2022, 11/25/2021, Additional history exists CKD HGB USE SMARTSET 96675 03/16/202403/16, 03/16/2023, 05/24/2022, Additional history exists CKD PHOS USE SMARTSET 00307 03/16/2024 07/0 02/2023, 02/18/2022, 05/06/2021, Additional history [...] D LEVEL ONCE IN A LIFETIME-USE SMARTSET# 07175 Completed 03/16/2023, 05/24/2022, 07/02/2020, Additional history exists [...] Documents on File Type Date Recorded 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
--- OUTSIDE RECORDS SUMMARY | 2023-12-23 14:44 | External Medical Summary | Summary of Care ---
Author Name Unknown Organization [facility] Address [address] [place] [address] Phone [phone] Care Team Providers Care Geology Scientist Name Role Phone Anamaria Allison DO Primary [...] COMPLETE (2D), TRANS-THORACIC Anamaria Allison DO [address] [place] [address] Referral ID Status Reason Start Date Expiration Date V isits Requested Visits Authorized [id number] Authorized Precert 11/29/2023 999 999 Reason for Visit * Reason Comments Follow Up Encounter Details Date Type Department Care Team ([facility] st Contact Info) Description 11/29/2023 3:00 PM EDT Office Visit Family Practice 65 [facility] [place] [address] [place] [address] Anamaria Allison, DO [address] [place] [address] Bilateral edema of lower extremity*; Hypertensive heart [...] 04/10/2007 Overview: ICD-10 update of inactive term 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 current use of ant icoagulant therapy 08/11/2005 [...] mRNA, LNP-s, No Pre serve, 2-Dose Series ([email or web address]) 08/18/2021,12/01/2020,11/10/2020 Hepatitis B, 20+ yrs 07/07/1992,02/24/1992,01/21 PPD [...] this encounter Progress Notes * Anamaria Allison, DO - 11/29/2023 3:25 PM EDT SUBJECTIVE: [...] Active Problem List Diagnosis Code 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 BPH without obstruction/lower urinary tract symptoms [...] of pulmonary embolism Z86.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, 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 I12.9, N18.32 Chronic kidney disease, stage 3b ([facility]) N18.32 Moderate persistent asthma without complication J45.40 Atrial flutter ([facility]) I48.92 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, group B, by GOLD 2017 classification ([facility]) J44.9 Other psoriasis L40.8 Dyslipidemia, goal LDL below 100 E78.5 Age-related osteoporosis without current pathological fracture M81.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 135 Tablet 3 Oosylvinmge-Wjkyqwrzp-Yorjfp 100-62.5-25 MCG/ACT Aerosol Powder Breath Activated (Trelegy [...] hx of skin ca Heart Disorder Brother [place] AGE 60 73 [place] 99 Gastro-intestinal disorder [...] SOB with exertion. documented in this encounter Plan of Treatment Upcoming Encounters Date Type Department Care Team (Late st Contact Info) Description 12/05/2023 2:00 PM EDT Office Visit [facility] [address] [place] [address] Yrn Gutierrez MD [address] [place] [address] 12/12/2023 2:00 PM EDT Office Visit [facility] [address] [place] [address] Yrn Gutierrez MD [address] [place] [address] 12/14/2023 2:30 PM EDT Cardiac Studies Cardiac Studies [address] [place] [address] 12/20/2023 10:45 AM EDT Office Visit [facility] [address] [place] [address] Yrn Gutierrez MD [address] [place] [address] 12/26/2023 9:30 AM EDT Office Visit Sleep Disorders Ctr [facility] 132 [facility] [place] [address] Kitty Frost CRNP [address] [place] [address] 01/09/2024 9:20 AM EDT Office Visit Family Practice [address] [place] [address] 293 [place] [address] Anamaria Allison DO 293 [place] [address] 01/24/2024 10:45 AM EDT Office Visit Orthopaedics [facility] 132 [facility] [place] [address] Yrn Gutierrez MD 132 [facility] [place] [address] 02/09/2024 2:00 PM EDT Office Visit Cardiology, [facility] 132 [facility] [place] [address] Kaden Francis PA-C [facility] [place] [address] 04/01/2024 2:40 PM EDT Office Visit Nephrology, [facility] 200 [facility] [place] [address] Ethan Gama MD 200 [facility] [place] [address] 04/08/2024 1:40 PM EDT Telemedicine Neurosurgery, [place] [address] [place], [place] [phone] Will Donaldson PA-C [address] [place], [place] [phone] 06/05/2024 10:45 AM EDT Office Visit Urology Jayesh Faith [address] [place] [address] [place] [address] Param Haines Jr., MD [address] [place] [address] [place] [address] Scheduled Orders Name Type Priority Associated Diagnoses [...] Additional history exists CKD PHOS USE SMARTSET 54473 03/16/2024 07/0 02/2023, 02/18/2022, 05/06/2021, Additional history exists TSH 03/16/2024 03/16/2023, 02/09, 11/25/2021, Additional history exists Depression Screening 10/06/2024 10/06/2023 CKD HGB USE SMARTSET 02055 11/27/202411/27, 11/28/2023, 03/16/2023, Additional history exists O2 [...] D LEVEL ONCE IN A LIFETIME-USE SMARTSET# 50450 Completed 03/16/2023, 05/24/2022, 07/02/2020, Additional history exists [...] Documents on File Type Date Recorded 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
--- OUTSIDE RECORDS SUMMARY | 2023-12-23 14:45 | External Medical Summary | Summary of Care ---
Author Name Unknown Organization [facility] Address [address] [place] [address] Phone [phone] Care Team Providers Care Purifying Plant Operator Name Role Phone YesikawinterAnamaria DO Primary Care Provider Reason for Visit * Reason Onset Date Comments Nurse Documentation 11/23/202311/22 Encounter Details Date Type Department Care Team (Late st Contact Info) Description 11/23/2023 10:00 AM EDT Scheduled Telephone Family Practice [address] [phone] College, Nurse [facility] Prac [address] [address] Arrived Allergies Active Allergy Reactions Criticality Noted Date Comments Edgar Inhibitors Cough 12/30/2011 Sulfa Antibiotics Unknown 01/03/2019 documented as of this encounter (statuses as of 11/23/2023) Medications Medication Sig Dispensed Refills Start Date [...] 2 days 30 Tablet 0 11/15/2023 Active Cefdinir 300 MG Oral Capsule (Omnicef)Indications :COPD exacerbation (HCC) Take 1 Capsule by mouth in the morning and 1 Capsule before bedtime. Do all this for 7 days. For 10 days.. 14 Capsule 0 11/20/2023 4 Active Benzonatate 100 MG Oral CapsuleIndications:C OPD exacerbation (HCC) Take 1 Capsule by mouth 3 times a day as needed for Cough. 30 Capsule 1 11/20/2023 Active Ciprofloxacin HCl 0.3 % Ophthalmic Solution (Ciloxan)Indications :Acute bacterial conjunctivitis of both eyes Instill 1 Drop into both eyes in the morning and 1 Drop at noon and 1 Drop in the evening and 1 Drop before bedtime. Do all this for 7 days. 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 [facility] [place] documented in this encounter Plan of Treatment Upcoming Encounters Date Type Department Care Team (Late st Contact Info) Description 12/05/2023 2:00 PM EDT Office Visit Orthopaedics [facility] 132 [facility] [place] [address] Yrn Gutierrez MD [address] [place] [address] 12/12/2023 2:00 PM EDT Office Visit Orthopaedics [facility] [place] [address] Yrn Gutierrez MD [address] [place] [address] 12/20/2023 10:45 AM EDT Office Visit [facility] [place] [address] Yrn Gutierrez MD [address] [place] [address] 12/26/2023 9:30 AM EDT Office Visit Sleep Disorders Ctr [facility] 132 [place] [address] Kitty Frost CRNP [address] [facility] [place] [address] 01/09/2024 9:20 AM EDT Office Visit Family Practice [address] [place] [address] 293 [place] [address] Anamaria Allison DO 293 [place] [address] 01/24/2024 10:45 AM EDT Office Visit Orthopaedics [facility] 132 [facility] [place] [address] Yrn Gutierrez MD [address] [place] [address] 02/09/2024 2:00 PM EDT Office Visit Cardiology, [facility] 132 [facility] [place] [address] Kaden Francis PA-C [address] [place] [address] 04/08/2024 1:40 PM EDT Telemedicine [facility] [address] [place] [address] Will Donaldson PA-C [address] [place], [place] [id number] 06/05/2024 10:45 AM EDT Office Visit Urology Jayesh Faith [address] [place] [address] [place] [address] Param Haines Jr., MD [address] [place] [address] [place] [address] Health Maintenance Due Date Last Done Comments *BISPHONATE OR OTHER ACCEPTABLE MEDICATION NEEDED FOR OSTEOPOROSIS (REFER TO SMARTSET #1146) 10/01/2022 COVID-19 Vaccine ( season) 2023 08/18/2021, 12/01/2020, 11/10/2020 Albumin/Creatinine Ratio 03/16/2024 023, 05/24/2022, 11/25/2021, Additional history exists CKD HGB USE SMARTSET 02062 03/16/202403/16, 03/16/2023, 05/24/2022, Additional history exists CKD PHOS USE SMARTSET 53389 03/16/2024 07/0 02/2023, 02/18/2022, 05/06/2021, Additional history [...] D LEVEL ONCE IN A LIFETIME-USE SMARTSET# 12131 Completed 03/16/2023, 05/24/2022, 07/02/2020, Additional history exists [...] Documents on File Type Date Recorded Patient Hand Buffing Wheel Former Expl anation Advance Directives and Living Will 04/09/2012 LIVING WILL DECLARAT ION - LIVING WILL Latest Code Status on File Code Status Date Activated Date Inactivated Comments Full Code 12/10/2007 8:45 AM 12/10/2007 3:42 PM Care Teams Purifying Plant Operator Relationship Specialty Start Date End Date Anamaria Allison DO [address] [place], [place] [address]riot [facility] [place] [address] PCP - General Family Medicine 10/26/22 documented as of this encounter
--- OUTSIDE RECORDS SUMMARY | 2023-12-23 14:45 | External Medical Summary | Summary of Care ---
Author Name Unknown Organization [facility] Address [address] [place] [address] Phone [phone] Care Team Providers Care Curriculum And Assessment Director Name Role Phone YesikawinterAnamaria DO Primary Care Provider Reason for Visit * Reason Onset Date Comments Nurse Documentation 11/22/202311/20 Encounter Details Date Type Department Care Team (Late st Contact Info) Description 11/22/2023 10:30 AM EDT Scheduled Telephone Family Practice [address] [phone] College, Nurse [facility] Prac [address] [address] Arrived Allergies Active Allergy Reactions Criticality Noted Date Comments Edgar Inhibitors Cough 12/30/2011 Sulfa Antibiotics Unknown 01/03/2019 documented as of this encounter (statuses as of 11/22/2023) Medications Medication Sig Dispensed Refills Start Date [...] as of this encounter (statuses as of 11/22/2023) Active Problems Problem Noted Date Diagnosed Date [...] as of this encounter (statuses as of 11/22/2023) Resolved Problems Problem Noted Date Diagnosed Date [...] 04/10/2007 Overview: ICD-10 update of inactive term qa test lead current use of ant icoagulant therapy 08/11/2005 [...] as of this encounter (statuses as of 11/22/2023) Immunizations Name Administration Dates Next Due COVID-19 [...] encounter Miscellaneous Notes * Telephone Encounter - Denise Torre LPN - 11/22/2023 2:40 PM EDT Please add to scehdule Thank you * Telephone Encounter - Anamaria Allison DO - 11/22/2023 2:36 PM EDT Noted. Please call pt tomorrow to check in. * Telephone Encounter - Irma Diaz LPN - 11/22/2023 10:41 AM EDT Nurse phone call placed to patient. Spoke to Shaina and patient. States his eyes are looking better, not completely cleared but much better. 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 Coughing less today. Started using nebulizer this morning which has helped. Reports he is having diarrhea - liquid stools approx 5 times since 6 am this morning. States he is drinking fluids. States he is eating well. Started antibiotic (Cefdinir) Monday evening. Pharmacy confirmed ([facility] in [place]) should any medication changes be needed. documented in this encounter Plan of Treatment Upcoming Encounters Date Type Department Care Team (Late st Contact Info) Description 12/05/2023 2:00 PM EDT Office Visit [facility] [address] [address] Yrn Gutierrez MD [address] [address] 12/12/2023 2:00 PM EDT Office Visit [facility] [address] [place] [address] Yrn Gutierrez MD [address] [place] [place] [address] 12/20/2023 10:45 AM EDT Office Visit [facility] [address] [place] [address] Yrn Gutierrez MD [address] [place] [address] 12/26/2023 9:30 AM EDT [facility] [phone] Kitty Frost CRNP 132 [facility] [address] 01/09/2024 9:20 AM EDT Office Visit Family Practice [address] [place] [address] 293 [facility] [place] [address] Anamaria Allison DO 293 [place] [address] 01/24/2024 10:45 AM EDT Office Visit Orthopaedics [facility] 132 [facility] [place] [address] Yrn [facility]ierrez MD [facility] [place] [address] 02/09/2024 2:00 PM EDT Office Visit [facility], [facility] [address] Kaden Fracnis PA-C 132 [facility] [place] [address] 04/08/2024 1:40 PM EDT Telemedicine Neurosurgery, [place] [address] [place] [address] Will Donaldson PA-C [address] [place] [address] 06/05/2024 10:45 AM EDT Office Visit Urology Jayesh Faith [address] [place] [address] Param Haines Jr., MD [address] [place] [address] [place] [address] Health Maintenance Due Date Last Done Comments *BISPHONATE OR OTHER ACCEPTABLE MEDICATION NEEDED FOR OSTEOPOROSIS (REFER TO SMARTSET #1146) 10/01/2022 COVID-19 Vaccine ( season) 2023 08/18/2021, 12/01/2020, 11/10/2020 Albumin/Creatinine Ratio 03/16/2024 023, 05/24/2022, 11/25/2021, Additional history exists CKD HGB USE SMARTSET 11789 03/16/202403/16, 03/16/2023, 05/24/2022, Additional history exists CKD PHOS USE SMARTSET 64946 03/16/2024 07/0 02/2023, 02/18/2022, 05/06/2021, Additional history [...] D LEVEL ONCE IN A LIFETIME-USE SMARTSET# [id number] Completed 03/16/2023, 05/24/2022, 07/02/2020, Additional history exists [...] Documents on File Type Date Recorded 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
--- OUTSIDE RECORDS SUMMARY | 2023-12-23 14:45 | External Medical Summary | Summary of Care ---
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); Psoriatic arthropathy (HCC); Typical atrial flutter (HCC); Hyperparathyroidism, secondary renal (HCC); History of pulmonary embolism; Hypothyroidism due to medication Allergies Active Allergy Reactions Criticality Noted Date Comments Edgar Inhibitors Cough 12/30/2011 Sulfa Antibiotics Unknown 01/03/2019 documented as of this encounter (statuses as of 11/20/2023) Medications Medication Sig Dispensed Refills Start Date [...] psoriasis areas 0 Active Knee Brace/Hinged Bars MediumIndications:C hronic pain of right knee,Primary osteoarthritis of one knee, right Wear daily when active 1 Each 0 02/13/2023 Active Levothyroxine Sodium 137 MCG Oral TabletIndications:H [...] 10/06/2023 Active predniSONE 10 MG Oral Tablet (Deltasone)Indicati ons:Rash and nonspecific skin eruption Take 5 tabs for 2 days, 4 tabs for 2 days, 3 tabs for 2 days, 2 tabs for 2 days 1 tab for 2 days 30 Tablet 0 11/15/2023 Active Cefdinir 300 MG Oral Capsule (Omnicef)Indication s:COPD exacerbation (HCC) Take 1 Capsule by mouth in the morning and 1 Capsule before bedtime. Do all this for 7 days. For 10 days.. 14 Capsule 0 11/20/2023 Active Benzonatate 100 MG Oral CapsuleIndications: COPD exacerbation (HCC) Take 1 Capsule by mouth 3 times a day as needed for Cough. 30 Capsule 1 11/20/2023 Active Ciprofloxacin HCl 0.3 % Ophthalmic Solution (Ciloxan)Indication s:Acute bacterial conjunctivitis of both eyes Instill 1 Drop into both eyes in the morning and 1 Drop at noon and 1 Drop in the evening and 1 Drop before bedtime. Do all this for 7 days. 10 mL 0 11/20/2023 4 Active amLODIPine Besylate 2.5 MG Oral Tablet (Norvasc) Take by mouth 1 Tablet in the morning. 90 Tablet 3 03/24/2022 4 Discontinu ed(Patient preference /discontin uation) Meclizine HCl 25 MG Oral Tablet (Antivert)Indicatio ns:Vertigo TAKE ONE TABLET BY MOUTH THREE TIMES A DAY NEEDED FOR DIZZINESS 90 Tablet 5 07/24/2023 4 Discontinu ed(Patient preference /discontin uation) Hospital, Clinic, or Other Facility Administered Medication Ordered Dose Route Frequency Start Date End Date Status albuterol (PROVENTIL HFA) inhaler 4 PuffIndications:Obstructive sleep apnea syndrome,Simple chronic bronchitis (HCC) 4 Puff IN Q4H PRN 05/30/2017 Active documented as of this encounter (statuses as of 11/20/2023) Active Problems Problem Noted Date Diagnosed Date [...] as of this encounter (statuses as of 11/20/2023) Resolved Problems Problem Noted Date Diagnosed Date [...] 04/10/2007 Overview: ICD-10 update of inactive term prison current use of ant icoagulant therapy 08/11/2005 [...] as of this encounter (statuses as of 11/20/2023) Immunizations Name Administration Dates Next Due COVID-19 mRNA, LNP-s, No Pre serve, 2-Dose Series ([employer]) 08/18/2021,12/01/2020,11/10/2020 Hepatitis B, 20+ yrs 07/07/1992,02/24/1992,01/21 PPD [...] Sign Reading Time Taken Comments Blood Pressure 154/70 11/20/2023 4:29 PM EDT Pulse 78 11/20/2023 4:15 PM EDT Temperature 36.9 C (98.5 F) 11/20/2023 4:15 PM ED T Respiratory Rate 16 11/20/2023 4:15 PM EDT Oxygen Saturation 95% 11/20/2023 4:15 PM EDT Inhaled Oxygen Concentration - - Weight 84.5 kg (186 lb 4.8 oz) 11/20/2023 4:15 P M EDT Height 169.5 cm (5' 6.75") 11/20/2023 4:15 PM ED T Body Mass Index 29.4 11/20/2023 4:15 PM EDT documented in this encounter Progress Notes * Tim Baires, - 11/20/2023 4:33 PM EDT SUBJECTIVE: Armani Woods is a 88 year old male. Chief Complaint Patient presents with Congestion HPI: Patient is an 88 year old male with a history of Psoriatic Arthropathy, CHF, HTN, CKD stage III, COPD, Sleep Apnea, Atrial Flutter, and Hypothyroidism that is seen for productive cough that has been present for 3 days. Cough producing brown mucous. No fever or chills are present. He Is short of breath. No chest pain. Weight is stable and appetite is good. 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 Cetirizine HCl 10 MG Oral Tablet (ZyrTEC) TAKE 1 TABLET BY MOUTH EVERY DAY 90 Tablet 3 CPAP every night at bedtime . Levothyroxine Sodium 137 MCG Oral Tablet Take [...] NOT CRUSH OR CHEW. 135 Tablet 3 Upgomueigva-Gxxijlqzv-Bglvtv 100-62.5-25 MCG/ACT Aerosol Powder Breath Activated (Trelegy Ellipta) Inhale 1 Puff by mouth in the morning. 180 Each 3 predniSONE 10 MG Oral Tablet (Deltasone) Take 5 tabs for 2 days, 4 tabs for 2 days, 3 tabs for 2 days, 2 tabs for 2 days 1 tab for 2 days 30 Tablet 0 Cefdinir 300 MG Oral Capsule (Omnicef) Take 1 Capsule by mouth in the morning and 1 Capsule before bedtime. Do all this for 7 days. For 10 days.. 14 Capsule 0 Benzonatate 100 MG Oral Capsule Take 1 Capsule by mouth 3 times a day as needed for Cough. 30 Capsule 1 Ciprofloxacin HCl 0.3 % Ophthalmic Solution (Ciloxan) Instill 1 Drop into both eyes in the morning and 1 Drop at noon and 1 Drop in the evening and 1 Drop before bedtime. Do all this for 7 days. 10 mL 0 EQ Complete Multivit Adult 50+ Oral Tablet Take 2 Tabs by mouth daily. Vitamin D 50 MCG (2000 UT) Oral Capsule Take 2,000 Units by mouth every other day. Triamcinolone Acetonide 0.1 % External Cream (Aristocort) APPLY TOPICALLY TO AFFECTED AREA 2 TIMES A DAY. TO AFFECTED AREA. FOR PSORIASIS 80 g 5 amLODIPine Besylate 2.5 MG Oral Tablet (Norvasc) Take by mouth 1 Tablet in the morning. 90 Tablet 3 Eucerin External Cream Apply topically to affected area as needed for Dry Skin. Apply to psoriasis areas Knee Brace/Hinged Bars Medium Wear daily when active 1 Each 0 Meclizine HCl 25 MG Oral Tablet (Antivert) TAKE ONE TABLET BY MOUTH THREE TIMES A DAY NEEDED FORDIZZINESS 90 Tablet 5 Betamethasone Dipropionate 0.05 % External Cream (Diprosone) Apply topically to affected area 2 times a day 90 g 1 Current Facility-Administered Medications Medication Dose Route Frequency Provider Last Rate Last Admin albuterol (PROVENTIL HFA) inhaler 4 Puff 4 Puff Inhalation Q4H PRN Denise Joseph MD 4 Puff at 11/29/17 1145 The patient's medication list was reviewed and updated as needed. Past Medical History: Diagnosis Date Adhesive capsulitis [...] DIAGNOSTIC (RECTUM) 02/20/2015 adenomatous polyp, repeat 3 yrs/[facility] COLONOSCOPY, DIAGNOSTIC (RECTUM) 07/11/2018 adenomatous polyp, diverticulosis/[facility] COLONOSCOPY, GI REFERRAL OP 08/23/2006 [...] Reactions Edgar Inhibitors Cough Sulfa Antibiotics Unknown Review of Systems Constitutional: Positive for fatigue. Negative for appetite change, chills, fever and unexpected weight change. HENT: Positive for congestion. Negative for postnasal drip, rhinorrhea, sore throat and trouble swallowing. Respiratory: Positive for cough and shortness of breath. Negative for wheezing. Cardiovascular: Negative for chest pain, palpitations and leg swelling. Gastrointestinal: Negative for abdominal pain, blood in stool, constipation, diarrhea, nausea and vomiting. Genitourinary: Negative for dysuria and hematuria. Neurological: Negative for dizziness, syncope and headaches. Psychiatric/Behavioral: Negative for confusion, decreased concentration and sleep disturbance. OBJECTIVE: BP 154/70 | Pulse 78 | Temp 36.9 C (98.5 F) | Resp 16 | Ht 1.695 m (5' 6.75") | Wt 84.5 kg (186lb 4.8 oz) | SpO2 95% | BMI 29.40 kg/m | BSA 1.99 m Physical Exam Vitals and nursing note reviewed. Constitutional: General: He is not in acute distress. Appearance: Normal appearance. He is not toxic-appearing. HENT: Head: Normocephalic and atraumatic. Eyes: General: Right eye: Discharge present. Left eye: Discharge present. Conjunctiva/sclera: Right eye: Right conjunctiva is injected. Left eye: Left conjunctiva is injected. Pupils: Pupils are equal, round, and reactive to light. Cardiovascular: Rate and Rhythm: Normal rate and regular rhythm. Heart sounds: Murmur heard. No gallop. Pulmonary: Breath sounds: Normal breath sounds. No wheezing, rhonchi or rales. Abdominal: General: Bowel sounds are normal. There is no distension. Palpations: Abdomen is soft. Tenderness: There is no abdominal tenderness. Musculoskeletal: Right lower leg: No edema. Left lower leg: No edema. Neurological: Mental Status: He is alert and oriented to person, place, and time. Motor: No weakness. Gait: Gait normal. Psychiatric: Mood and Affect: Mood normal. Behavior: Behavior normal. PLAN AND ASSESSMENT: COPD exacerbation ([facility]) (Primary) - SARS-COV-2 (COVID-19), NAAT - Cefdinir 300 MG Oral Capsule (Omnicef); Take 1 Capsule by mouth in the morning and 1 Capsule before bedtime. Do all this for 7 days. For 10 days.. - Benzonatate 100 MG Oral Capsule; Take 1 Capsule by mouth 3 times a day as needed for Cough. COPD, group B, by GOLD 2017 classification ([facility]) Continue Marce Acute bacterial conjunctivitis of both eyes - Ciprofloxacin HCl 0.3 % Ophthalmic Solution (Ciloxan); Instill 1 Drop into both eyes in the morning and 1 Drop at noon and 1 Drop in the evening and 1 Drop before bedtime. Do all this for 7 days. 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 Tim Baires DO 10:16 PM 11/20/2023 documented in this encounter Nursing Notes * Denise Torre LPN - 11/20/2023 4:26 PM EDT URI, states since Monday. Yellow drainage right eye, pink sclera. Left eye sclera is red. documented in this encounter Plan of Treatment Upcoming Encounters Date Type Department Care Team (Late st Contact Info) Description 12/05/2023 2:00 PM EDT Office Visit Orthopaedics [facility] [address] [place] [address] Yrn Gutierrez MD [address] [place] [address] 12/12/2023 2:00 PM EDT [facility] [address] [place] [address] Yrn Gutierrez MD [address] [place] [address] 12/20/2023 10:45 AM EDT Office Visit [facility] [address] [place] [address] Yrn Gutierrez MD [address] [place] [address] 12/26/2023 9:30 AM EDT Office Visit [facility] Disorders Ctr [facility] [address] [place] [phone] Kitty Frost CRNP [address] [place] [address] 01/09/2024 9:20 AM EDT Office Visit Family Practice [address] [place] [address] 293 [facility] [place] [address] Anamaria Allison DO 293 [facility] [place] [address] 01/24/2024 10:45 AM EDT Office Visit Orthopaedics [facility] 132 [place] [address] Yrn Gutierrez MD [address] [place] [address] 02/09/2024 2:00 PM EDT Office Visit Cardiology, [facility] [address] [place] [address] Kaden Francis PALauroC 132 [place] [address] 04/08/2024 1:40 PM EDT Telemedicine Neurosurgery, [place] [address] [place], [place] [address] Will Donaldson PA-C [address] [place], [place] [id number] 06/05/2024 10:45 AM EDT Office Visit Urology Jayesh Faith [address] [address] Param Haines Jr., MD [address] [place] [address] [place] [address] Pending Results Name Type Priority Associated Diagnoses Date /Time SARS-COV-2 (COVID-19), NAAT Lab Routine COPD exacerbation (HCC) 11/20/2023 4:37 PM EDT Health Maintenance Due Date Last Done Comments *BISPHONATE OR OTHER ACCEPTABLE MEDICATION NEEDED FOR OSTEOPOROSIS (REFER TO SMARTSET #1146) 10/01/2022 COVID-19 Vaccine ( season) 2023 08/18/2021, 12/01/2020, 11/10/2020 Albumin/Creatinine Ratio 03/16/2024 023, 05/24/2022, 11/25/2021, Additional history exists CKD HGB USE SMARTSET 90389 03/16/202403/16, 03/16/2023, 05/24/2022, Additional history exists CKD PHOS USE SMARTSET 68058 03/16/2024 07/0 02/2023, 02/18/2022, 05/06/2021, Additional history [...] D LEVEL ONCE IN A LIFETIME-USE SMARTSET# [id number] Completed 03/16/2023, 05/24/2022, 07/02/2020, Additional history exists [...] as of this encounter Visit Diagnoses Diagnosis COPD exacerbation (HCC)- Primary Obstructive chronic bronchitis with exacerbation COPD, group B, by GOLD 2017 classification (HCC) Acute bacterial conjunctivitis of both eyes 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) Psoriatic arthropathy Typical atrial flutter (HCC) Atrial flutter Hyperparathyroidism, secondary renal (HCC) Secondary hyperparathyroidism (of renal origin) History of pulmonary embolism Personal history of pulmonary embolism Hypothyroidism due to medication documented in this encounter Advance Directives Documents on File Type Date Recorded Patient Report Checker Expl anation Advance Directives and Living Will 04/09/2012 LIVING WILL DECLARAT ION - LIVING WILL Latest Code Status on File Code Status Date Activated Date Inactivated Comments Full Code 12/10/2007 8:45 AM 12/10/2007 3:42 PM Care Teams Yard Assistant Relationship Specialty Start Date End Date Anamaria Allison DO [address] [place] [address] PCP - General Family Medicine 10/26/22 documented as of this encounter
--- OUTSIDE RECORDS SUMMARY | 2023-12-23 14:45 | External Medical Summary | Summary of Care ---
Author Name Unknown Organization [facility] Address [address] [place] [address] Phone [phone] Care Team Providers Care Service Provider Name Role Phone YesikawinterAnamaria DO Primary Care Provider Reason for Visit * Reason Onset Date Comments Nurse Documentation 11/22/202311/20 Encounter Details Date Type Department Care Team (Late st Contact Info) Description 11/22/2023 10:30 AM EDT Scheduled Telephone Family Practice [address] [phone] College, Nurse [facility] Prac [address] [address] Arrived Allergies Active Allergy Reactions Criticality Noted [...] Telephone Encounter - Alicia Ryan OSA - 11/22/2023 3:37 PM EDT Added per below * Telephone Encounter - Denise Torre LPN [...] Continues with productive cough, states sputum is baker apprentice than it was - now is yellowish/white. Coughing less today. Started using nebulizer this morning which has helped. Reports he is having diarrhea - liquid stools approx 5 times since 6 am this morning. States he is drinking fluids. States he is eating well. Started antibiotic (Cefdinir) Monday evening. Pharmacy confirmed ([facility] in [place]) should any medication changes be needed. documented in this encounter Plan of Treatment Upcoming Encounters Date Type Department Care Team (Late st Contact Info) Description 11/23/2023 10:00 AM EDT Scheduled Telephone Family Practice [address] [phone] College, Nurse [facility] Prac [address] [address] 12/05/2023 2:00 PM EDT Office Visit [facility] [address] [place] [address] Yrn Gutierrez MD [address] [place] [address] 12/12/2023 2:00 PM EDT Office Visit [facility] [address] [place] [address] Yrn Gutierrez MD [address] [place] [address] 12/20/2023 10:45 AM EDT Office Visit Orthopaedics [facility] [address] [place] [address] Yrn Gutierrez MD [address] [place] [address] 12/26/2023 9:30 AM EDT Office Visit Sleep Disorders Ctr [facility] 132 [facility] [place] [phone] Kitty Frost CRNP [facility] [place] [address] 01/09/2024 9:20 AM EDT Office Visit Family Practice [address] [place] [address] [place] [address] Anamaria Allison DO 293 [place] [address] 01/24/2024 10:45 AM EDT Office Visit Orthopaedics [facility] 132 [place] [address] Yrn Gutierrez MD 132 [facility] [place] [address] 02/09/2024 2:00 PM EDT Office Visit Cardiology, [facility] 132 [place] [address] Kaden Francis PA-C 132 [address] [facility] [place] [address] 04/08/2024 1:40 PM EDT Telemedicine Neurosurgery, [address] [address] Will Donaldson PA-C [address] [place] [address] 06/05/2024 10:45 AM EDT Office Visit Urology [facility] [address] [place] [address] [place] [address] Param Haines Jr., MD [address] [place] [address] [place] [address] Health Maintenance Due Date Last Done Comments *BISPHONATE OR OTHER ACCEPTABLE MEDICATION NEEDED FOR OSTEOPOROSIS (REFER TO SMARTSET #1146) 10/01/2022 COVID-19 Vaccine ( season) 2023 08/18/2021, 12/01/2020, 11/10/2020 Albumin/Creatinine Ratio 03/16/2024 023, 05/24/2022, 11/25/2021, Additional history exists CKD HGB USE SMARTSET 65929 03/16/202403/16, 03/16/2023, 05/24/2022, Additional history exists CKD PHOS USE SMARTSET 04811 03/16/202402/2023, 02/18/2022, 05/06/2021, Additional history exists TSH 03/16/2024 [...] D LEVEL ONCE IN A LIFETIME-USE SMARTSET# 11520 Completed 03/16/2023, 05/24/2022, 07/02/2020, Additional history exists [...] Documents on File Type Date Recorded Patient Consumer Marketing Analyst Expl anation Advance Directives and Living Will 04/09/2012 LIVING WILL DECLARAT ION - LIVING WILL Latest Code Status on File Code Status Date Activated Date Inactivated Comments Full Code 12/10/2007 8:45 AM 12/10/2007 3:42 PM Care Teams Service Provider Relationship Specialty Start Date End Date Anamaria Allison DO [address] [place] [address] PCP - General Family Medicine 10/26/22 documented as of this encounter
--- OUTSIDE RECORDS SUMMARY | 2023-12-23 14:45 | External Medical Summary | Summary of Care ---
Author Name Unknown Organization [facility] Address [address] [place] [address] Phone [phone] Care Team Providers Care Truck Mechanic Apprentice Name Role Phone YesikawinterAnamaria DO Primary Care Provider Reason for Visit * Reason Onset Date Comments Nurse Documentation 11/22/202311/20 Encounter Details Date Type Department Care Team (Late st Contact Info) Description 11/22/2023 10:30 AM EDT Scheduled Telephone Family Practice [address] [phone] College, Nurse [facility] Prac [address] [address] Arrived Allergies Active Allergy Reactions Criticality Noted [...] 04/10/2007 Overview: 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 Coughing less today. Started using nebulizer this morning which has helped. Reports he is having diarrhea - liquid stools approx 5 times since 6 am this morning. States he is drinking fluids. States he is eating well. Started antibiotic (Cefdinir) Monday evening. Pharmacy confirmed ([facility] in [place]) should any medication changes be needed. documented in this encounter Plan of Treatment Upcoming Encounters Date Type Department Care Team (Late st Contact Info) Description 12/05/2023 2:00 PM EDT Office Visit [facility] [address] [address] Yrn Gutierrez MD [address] [place] [address] 12/12/2023 2:00 PM EDT Office Visit [facility] [address] [place] [address] Yrn Gutierrez MD [address] [place] [address] 12/20/2023 10:45 AM EDT Office Visit [facility] [address] [place] [address] Yrn Gutierrez MD [address] [place] [address] 12/26/2023 9:30 AM EDT Office Visit Sleep Disorders Ctr [facility] [address] [phone] Kitty Frost CRNP [address] [place] [address] 01/09/2024 9:20 AM EDT Office Visit Family Practice 65 [facility] 293 [place] [address] Anamaria Alliosn DO 293 [facility] [place] [address] 01/24/2024 10:45 AM EDT Office Visit Orthopaedics [facility] 132 [facility] [place] [address] Yrn Gutierrez MD 132 [facility] [place] [address] 02/09/2024 2:00 PM EDT Office Visit Cardiology, [facility] 132 [place] [place] [address] Kaden Francis PA-C 132 [place] [address] 04/08/2024 1:40 PM EDT Telemedicine Neurosurgery, [place] [address] [place], [place] [phone] Will Donaldson PA-C [address] [place], [place] [phone] 06/05/2024 10:45 AM EDT Office Visit Urology Jayesh Faith [address] [place] [address] [place] [address] Param Haines Jr., MD [address] [place] [address] [place] [address] Health Maintenance Due Date Last Done Comments *BISPHONATE OR OTHER ACCEPTABLE MEDICATION NEEDED FOR OSTEOPOROSIS (REFER TO SMARTSET #1146) 10/01/2022 COVID-19 Vaccine ( season) 2023 08/18/2021, 12/01/2020, 11/10/2020 Albumin/Creatinine Ratio 03/16/2024 023, 05/24/2022, 11/25/2021, Additional history exists CKD HGB USE SMARTSET 10636 03/16/202403/16, 03/16/2023, 05/24/2022, Additional history exists CKD PHOS USE SMARTSET 97443 03/16/2024 07/0 02/2023, 02/18/2022, 05/06/2021, Additional history [...] D LEVEL ONCE IN A LIFETIME-USE SMARTSET# 20243 Completed 03/16/2023, 05/24/2022, 07/02/2020, Additional history exists [...] Documents on File Type Date Recorded 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
--- OUTSIDE RECORDS SUMMARY | 2023-12-23 14:45 | External Medical Summary | Summary of Care ---
Author Name Unknown Organization [facility] Address [address] [place] [address] Phone [phone] Care Team Providers Care Network Services Project Manager Name Role Phone Anamaria Allison DO Primary Care Provider Reason for Visit * Reason Onset Date Comments Cough 11/20/2023 Encounter Details Date Type Department Care Team (Latest Contact Info) Description 11/20/2023 11:30 AM EDT Scheduled Telephone Family Practice [address] [phone] College, Nurse [facility] Prac [address] [address] COPD, group B, by GOLD 2017 classification ([facility])* Allergies Active Allergy Reactions Criticality Noted Date [...] FOR PSORIASIS 80 g 5 03/07/2022 Active amLODIPine Besylate 2.5 MG Oral Tablet (Norvasc) Take by mouth 1 Tablet in the morning. 90 Tablet 3 03/24/2022 Active CPAP every night at bedtime . [...] once a day on Monday, Monday, and Shaun only. 42 Capsule 3 06/07/2023 Active Terazosin [...] OR CHEW. 135 Tablet 3 07/12/2023 Active Meclizine HCl 25 MG Oral Tablet (Antivert)Indication s:Vertigo TAKE ONE TABLET BY MOUTH THREE TIMES A DAY NEEDED FOR DIZZINESS 90 Tablet 5 07/24/2023 Active Fluticasone-Umeclidi n-Vilant 100-62.5-25 MCG/ACT Aerosol Powder [...] 2 days 30 Tablet 0 11/15/2023 Active Hospital, Clinic, or Other Facility Administered [...] 04/10/2007 Overview: ICD-10 update of inactive term detention current use of ant icoagulant therapy 08/11/2005 [...] mRNA, LNP-s, No Pre serve, 2-Dose Series ([employer]) 08/18/2021,12/01/2020,11/10/2020 Hepatitis B, 20+ yrs 07/07/1992,02/24/1992,01/21 PPD [...] encounter Miscellaneous Notes * Telephone Encounter - Tim Baires DO - 11/20/2023 12:08 PM EDT CXR ordered * Telephone Encounter - Denise Bhatt RN - 11/20/2023 11:18 AM EDT Follow up call Pt seen 11/15/23 for rash on arms and torso-started on prednisone tapering dose. Call to pt-states doing better-rash is gone. Pt having cough and cold symptoms which started Monday. Coughing a lot- productive of yellowish green muc. Eyes bothering him-right eye watery, crusty yellow discharge, itchy outer corner. Left akg-ukj-axvbyn may be broken blood vessel from coughing. A lot of congestion in chest. Denies fever, SOB, diff breathing. Using tylenol, honey and gargling with salt water. Told Dr Allison out of office today but he could be seen tomorrow at 8:40 or he could come today at 4:[address] Baires-pt accepted appt today. Told to come at 4:00 for CXR prior to appt. documented in this encounter Plan of Treatment Upcoming Encounters Date Type Department Care Team (Late st Contact Info) Description 11/20/2023 4:40 PM EDT Office Visit Family Practice [address] [place] [address] [place] [address] Tim Baires, DO 293 [facility] [place] [address] 12/05/2023 2:00 PM EDT Office Visit [facility] 132 [facility] [place] [address] Yrn Gutierrez MD [address] [place] [address] 12/12/2023 2:00 PM EDT Office Visit [facility] [address] Yrn Gutierrez MD 132 [place] [address] 12/20/2023 10:45 AM EDT Office Visit [facility] 132 [facility] [place] [address] Yrn Gutierrez MD 132 [place] [place] [address] 12/26/2023 9:30 AM EDT Office Visit Sleep Disorders [facility] 132 [facility] [place] [phone] Kitty Frost CRNP [address] [place] [address] 01/09/2024 9:20 AM EDT Office Visit Family Practice [address] [place] [address] 293 [place] [address] Anamaria Allison, 293 [facility] [place] [address] 01/24/2024 10:45 AM EDT Office Visit [facility] [address] [place] [address] Yrn Gutierrez MD [address] [place] [address] 02/09/2024 2:00 PM EDT Office Visit Card[facility], [facility] [address] [place] [address] Kaden Francis PA-C [address] [place] [address] 04/08/2024 1:40 PM EDT Telemedicine Neurosurgery, [place] [address] [place], [place] [phone] Will Donaldson PA-C [address] [place], [place] [phone] 06/05/2024 10:45 AM EDT Office Visit Urology Jayesh Faith [address] [place] [address] [place] [address] Param Haines Jr., MD [address] [place] [address] [place] [address] Scheduled Orders Name Type Priority Associated Diagnoses Orde r Schedule XR CHEST 2 VIEWS Medical Imaging Routine COPD, group B, by GOLD 2017 classification ([facility]) Expected: 11/20/2023, Expires: 12/20/2024 Health Maintenance Due Date Last Done Comments *BISPHONATE OR OTHER ACCEPTABLE MEDICATION NEEDED FOR OSTEOPOROSIS (REFER TO SMARTSET #1146) 10/01/2022 COVID-19 Vaccine ( season) 2023 08/18/2021, 12/01/2020, 11/10/2020 Albumin/Creatinine Ratio 03/16/2024 023, 05/24/2022, 11/25/2021, Additional history exists CKD HGB USE SMARTSET 67783 03/16/202403/16, 03/16/2023, 05/24/2022, Additional history exists CKD PHOS USE SMARTSET 48293 03/16/2024 07/0 02/2023, 02/18/2022, 05/06/2021, Additional history exists TSH 03/16/2024 03/16/2023, 02/09, 11/25/2021, Additional history exists Depression Screening 10/06/2024 10/06/2023 O2 ASSESSMENT COMPLETED IN PAST YEAR FOR COPD 11/14/2024 11/15/2023 DTaP,Tdap,and Td Vaccines (3 - Td or Tdap) 05/04/2032 05/04/2022, 12/05/2011, 04/06/1999, Additional history exists Hepatitis B Completed 07/07/1992, 06/12, 02/24/1992, Additional history exists Pneumococcal Vaccine: 65+ Years Completed 01/27/2015, 06/02/2010, 11/27/2001 DXA Scan Discontinued 11/23/2015, 04/11, 04/26/2007, Additional history exists Zoster Vaccines Completed 07/01/2020, 04/11, 06/06/2012 Alpha-1 Antitrypsin Completed 05/24/2022 VITAMIN D LEVEL ONCE IN A LIFETIME-USE SMARTSET# 07525 Completed 03/16/2023, 05/24/2022, 07/02/2020, Additional history exists [...] as of this encounter Visit Diagnoses Diagnosis COPD, group B, by GOLD 2017 classification (HCC)- Primary URI (upper respiratory infection)- Primary Acute upper respiratory infections of unspecified site documented in this encounter Advance Directives Documents on File Type Date Recorded Patient Certified Registered Nurse Practitioner Expl anation Advance Directives and Living Will 04/09/2012 LIVING WILL DECLARAT ION - LIVING WILL Latest Code Status on File Code Status Date Activated Date Inactivated Comments Full Code 12/10/2007 8:45 AM 12/10/2007 3:42 PM Care Teams Network Services Project Manager Relationship Specialty Start Date End Date Anamaria Allison DO [address] [place] [address] PCP - General Family Medicine 10/26/22 documented as of this encounter
--- OUTSIDE RECORDS SUMMARY | 2023-12-23 14:45 | External Medical Summary | Summary of Care ---
Author Name Unknown Organization [facility] Address [address] [place] [address] Phone [phone] Care Team Providers Care Domestic Maid Name Role Phone Anamaria Allison DO Primary Care Provider Reason for Visit * Reason Onset Date Comments Test Results 11/21/202311/20 Encounter Details Date Type Department Care Team (Late st Contact Info) Description 11/21/2023 Telephone Family Practice 65 [facility] 293 [place] [address] Anamaria Allison DO 293 [place] [address] Test Results (11/20) Allergies Active Allergy Reactions Criticality Noted Date Comments Edgar Inhibitors Cough 12/30/2011 Sulfa Antibiotics Unknown 01/03/2019 documented as of this encounter (statuses as of 11/21/2023) Medications Medication Sig Dispensed Refills Start Date [...] as of this encounter (statuses as of 11/21/2023) Active Problems Problem Noted Date Diagnosed Date [...] as of this encounter (statuses as of 11/21/2023) Resolved Problems Problem Noted Date Diagnosed Date [...] 04/10/2007 Overview: ICD-10 update of inactive term snf current use of ant icoagulant therapy 08/11/2005 [...] as of this encounter (statuses as of 11/21/2023) Immunizations Name Administration Dates Next Due COVID-19 mRNA, LNP-s, No Pre serve, 2-Dose Series ([employer]) 08/18/2021,12/01/2020,11/10/2020 Hepatitis B, 20+ yrs 07/07/1992,02/24/1992,01/21 PPD [...] Telephone Encounter - Irma Diaz LPN - 11/21/2023 12:22 PM EDT Call placed to patient, spoke to . Relayed information from Dr. Baires. Acknowledged understanding. Pt has started antibiotics. encouraging fluids for pt. Aware will f/u tomorrow with nurse phone call. No questions at this time. * Telephone Encounter - Irma Diaz LPN - 11/21/2023 12:20 PM EDT ----- Message from Tim Baires DO sent at 11/21/2023 11:58 AM EDT ----- No COVID, Flu, or RSV documented in this encounter Plan of Treatment Upcoming Encounters Date Type Department Care Team (Late st Contact Info) Description 11/22/2023 10:30 AM EDT Scheduled Telephone Family Practice [address] [place] [address] [place] [address] College, Nurse [facility] Prac [address] [place] [address], [place] [address] 12/05/2023 2:00 PM EDT Office Visit [facility] 132 [place] [address] Yrn Gutierrez MD [facility] [place] [address] 12/12/2023 2:00 PM EDT Office Visit [facility] 132 [facility] [place] [address] Yrn Gutierrez MD 132 [place] [address] 12/20/2023 10:45 AM EDT Office Visit [facility] 132 [place] [address] Yrn Gutierrez MD [address] [facility] [place] [address] 12/26/2023 9:30 AM EDT Office Visit Sleep Disorders [facility] 132 [place] [phone] Kitty Frost CRNP [address] [facility] [place] [address] 01/09/2024 9:20 AM EDT Office Visit Family Practice [address] [place] [address] [place] [address] Anamaria Allison DO 293 [place] [address] 01/24/2024 10:45 AM EDT Office Visit Orthopaedics [facility] [address] [facility] [place] [address] Yrn Gutierrez MD [address] [facility] [place] [address] 02/09/2024 2:00 PM EDT Office Visit Cardiology, [facility] [address] [facility] [place] [address] Kaden Francis PA-C [address] [place] [address] 04/08/2024 1:40 PM EDT Telemedicine Neurosurgery, [place] [address] [place] [address] Will Donaldson PA-C [address] [place], [place] [id number] 06/05/2024 10:45 AM EDT Office Visit Urology Jayesh Faith [address] [place] [address] [place] [address] Param Haines Jr., MD [address] [place] [address] [place] [address] Health Maintenance Due Date Last Done Comments *BISPHONATE OR OTHER ACCEPTABLE MEDICATION NEEDED FOR OSTEOPOROSIS (REFER TO SMARTSET #1146) 10/01/2022 COVID-19 Vaccine ( season) 2023 08/18/2021, 12/01/2020, 11/10/2020 Albumin/Creatinine Ratio 03/16/2024 023, 05/24/2022, 11/25/2021, Additional history exists CKD HGB USE SMARTSET 06679 03/16/202403/16, 03/16/2023, 05/24/2022, Additional history exists CKD PHOS USE SMARTSET 86125 03/16/2024 07/0 02/2023, 02/18/2022, 05/06/2021, Additional history [...] D LEVEL ONCE IN A LIFETIME-USE SMARTSET# 32117 Completed 03/16/2023, 05/24/2022, 07/02/2020, Additional history exists [...] Documents on File Type Date Recorded Patient Electrical Superintendent Expl anation Advance Directives and Living Will 04/09/2012 LIVING WILL DECLARAT ION - LIVING WILL Latest Code Status on File Code Status Date Activated Date Inactivated Comments Full Code 12/10/2007 8:45 AM 12/10/2007 3:42 PM Care Teams Domestic Maid Relationship Specialty Start Date End Date Anamaria Allison DO [address] [place] [address] PCP - General Family Medicine 10/26/22 documented as of this encounter
--- OUTSIDE RECORDS SUMMARY | 2023-12-23 14:45 | External Medical Summary | Summary of Care ---
Author Name Unknown Organization [facility] Address [address] [place] [address] Phone [phone] Care Team Providers Care Banking Supervisor Name Role Phone Anamaria Allison DO Primary Care Provider Reason for Visit * Reason Onset Date Comments Follow Up 11/21/2023 Encounter Details Date Type Department Care Team (Late st Contact Info) Description 11/21/2023 Telephone Family Practice [address] [facility] [address] [place] [address] Anamaria Allison DO [address] [place] [address] Follow Up Allergies Active Allergy Reactions Criticality Noted Date [...] 0 11/20/2023 Active Benzonatate 100 MG Oral CapsuleIndications:C OPD [...] days. 10 mL 0 11/20/2023 4 Active Hospital, Clinic, or Other Facility [...] 04/10/2007 Overview: ICD-10 update of inactive term manager intermediate current use of ant icoagulant therapy [...] mRNA, LNP-s, No Pre serve, 2-Dose Series (Koa.la) 08/18/2021,12/01/2020,11/10/2020 Hepatitis B, 20+ yrs 07/07/1992,02/24/1992,01/21 PPD [...] Encounter - Anamaria Allison DO - 11/22/2023 2:35 PM EDT Noted. * Telephone Encounter - Denise Bhatt RN - 11/21/2023 9:31 AM EDT Pt was in to see Dr Baires yesterday for COPD exacerbation and acute bacterial conjunctivitis of both eyes. Started on Cifdinir 300 mg bid x 10 days, benzonatate 100 mg tid prn cough, ciprofloxacin 0.3% ophthalmic solution 1 gtt bilat eyes AM, noon, PM and HS x 7 days. Follow up call to see how he is feeling Spoke with , pt in background. States he is still feeling pretty rough-still coughing-bringing up a lot of muc. Did get the cefdinir, benzonatate and ciprofloxacin gtts and using as ordered. States right eye swollen. Slept fair last night-was up early this AM with his coughing. Will continue with current medication. To call if s/s worsening. Told would check in on him tomorrow. documented in this encounter Plan of Treatment Upcoming Encounters Date Type Department Care Team (Late st Contact Info) Description 12/05/2023 2:00 PM EDT Office Visit [facility] 132 [facility] [place] [address] Yrn Gutierrez MD [address] [place] [address] 12/12/2023 2:00 PM EDT Office Visit [facility] [place] [address] Yrn Gutierrez MD [address] [place] [address] 12/20/2023 10:45 AM EDT Office Visit [facility] [address] [facility] [place] [address] Yrn Gutierrez MD [facility] [place] [place] [address] 12/26/2023 9:30 AM EDT Office Visit [facility] [address] [facility] [place] [address] Kitty Frost CRNP [address] [place] [address] 01/09/2024 9:20 AM EDT Office Visit Family Practice [address] [address] 293 [place] [address] Anamaria Allison DO 293 [place] [address] 01/24/2024 10:45 AM EDT Office Visit Orthopaedics [facility] [address] [place] [address] Yrn Gutierrez MD [address] [place] [address] 02/09/2024 2:00 PM EDT Office Visit Cardiology, [facility] [address] [place] [address] Kaden Francis PA-C [address] [place] [address] 04/08/2024 1:40 PM EDT Telemedicine Neurosurgery, [place] [address] [place], [place] [phone] Will Donaldson PA-C [address] [place], [place] [phone] 06/05/2024 10:45 AM EDT Office Visit Urology Jayesh Faith [address] [place] [address] [place] [address] Param Haines Jr., MD [address] [place] [address] [place] [address] Health Maintenance Due Date Last Done Comments *BISPHONATE OR OTHER ACCEPTABLE MEDICATION NEEDED FOR OSTEOPOROSIS (REFER TO SMARTSET #1146) 10/01/2022 COVID-19 Vaccine ( season) 2023 08/18/2021, 12/01/2020, 11/10/2020 Albumin/Creatinine Ratio 03/16/2024 023, 05/24/2022, 11/25/2021, Additional history exists CKD HGB USE SMARTSET 96222 03/16/202403/16, 03/16/2023, 05/24/2022, Additional history exists CKD PHOS USE SMARTSET 05202 03/16/2024 07/02/2023, 02/18/2022, 05/06/2021, Additional history exists [...] D LEVEL ONCE IN A LIFETIME-USE SMARTSET# 77234 Completed 03/16/2023, 05/24/2022, 07/02/2020, Additional history exists [...] Documents on File Type Date Recorded Patient Collection Agent Expl anation Advance Directives and Living Will 04/09/2012 LIVING WILL DECLARAT ION - LIVING WILL Latest Code Status on File Code Status Date Activated Date Inactivated Comments Full Code 12/10/2007 8:45 AM 12/10/2007 3:42 PM Care Teams Banking Supervisor Relationship Specialty Start Date End Date Anamaria Allison DO [address] [place] [address] PCP - General Family Medicine 10/26/22 documented as of this encounter
--- OUTSIDE RECORDS SUMMARY | 2023-12-23 14:45 | External Medical Summary ---
Author Name Unknown Address Unknown Organization K01:[facility] - [address] [place] [address] Laboratory Report Ordering Provider Test Date Status JOSE E DUKE 11/20/2023 16:37:02 Final For PreSurgery, Procedure, O B Admit, or Surveillance testing - Nasal Turbinate source preferred.

For Symptomatic testing - Nasopharyngeal source preferred.
null Observation Date Value Abnormality Reference (Units ) Status SARS Coronavirus 2 11/20/2023 16:37:02 Negative N egative Final 2018 Novel Coronavirus not d etected.

This automated test was developed and its performance characteristics determined by [facility]. It has not been cleared or approved by the U.S. Food and Drug Administration (FDA). FDA does not require this test to go thru premarket FDA review. This test is used for clinical purposes. It should not be regarded as investigational or for research. This laboratory is certified under the Clinical Laboratory Improvement Amendments (CLIA) as qualified to perform high complexity clinical laboratory testing.

This test is a nucleic acid amplification test (NAAT), a reverse transcriptase polymerase chain reaction (RT-PCR) test, or a Centers for Disease Control-acceptable equivalent. The test is performed in a high complexity Clinical Laboratory Improvement Amendments-(CLIA) certified laboratory. The test is acceptable for SARS-CoV-2 diagnosis, surveillance, and travel within the [place] and to most countries. Please check with local testing authorities about requirements before travel. Performing Location [facility] - [address] Aleksandar [place]TERJEE [address]
--- OUTSIDE RECORDS SUMMARY | 2023-12-23 14:45 | External Medical Summary | Summary of Care ---
Author Name Unknown Organization [facility] Address [address] [place] [address] Phone [phone] Care Team Providers Care Inspectors And Regulatory Officers Name Role Phone YesikawinterAnamaria DO Primary Care Provider [phone] Reason for Visit * Reason Onset Date Comments Nurse Documentation 11/22/202311/20 Encounter Details Date Type Department Care Team (Late st Contact Info) Description 11/22/2023 10:30 AM EDT Scheduled Telephone Family Practice [address] [phone] College, Nurse [facility] Prac [address] [address] Arrived Allergies Active Allergy Reactions Criticality Noted [...] 04/10/2007 Overview: ICD-10 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 Coughing less today. Started using nebulizer this morning which has helped. Reports he is having diarrhea - liquid stools approx 5 times since 6 am this morning. States he is drinking fluids. States he is eating well. Started antibiotic (Cefdinir) Monday evening. Pharmacy confirmed ([facility] in [place]) should any medication changes be needed. documented in this encounter Plan of Treatment Upcoming Encounters Date Type Department Care Team (Late st Contact Info) Description 12/05/2023 2:00 PM EDT Office Visit Orthopaedics [facility] [address] [facility] [place] [address] Yrn Gutierrez MD [address] [place] [address] 12/12/2023 2:00 PM EDT Office Visit [facility] [place] [address] Yrn Gutierrez MD [address] [place] [address] 12/20/2023 10:45 AM EDT Office Visit [facility] [place] [address] Yrn Gutierrez MD [address] [place] [address] 12/26/2023 9:30 AM EDT Office Visit Sleep Disorders [facility] 132 [facility] [place] [address] Kitty Frost CRNP [address] [facility] [place] [address] 01/09/2024 9:20 AM EDT Office Visit Family Practice [address] [place] [address] 293 [place] [address] Anamaria Allison DO 293 [facility] [place] [address] 01/24/2024 10:45 AM EDT Office Visit [facility] 132 [facility] [place] [address] Yrn Gutierrez MD [address] [place] [address] 02/09/2024 2:00 PM EDT Office Visit Cardiology, [facility] 132 [place] [address] Kaden Francis PA-C [address] [place] [address] 04/08/2024 1:40 PM EDT Telemedicine [facility], [place] [address] [place], [place] [phone] Will Donaldson PA-C [address] [place], [place] [phone] 06/05/2024 10:45 AM EDT Office Visit Urology [place] Jay[facility] Wood [address] [place] [address] [place] [address] Param Haines Jr., MD [address] [place] [address] [place] [address] Health Maintenance Due Date Last Done Comments *BISPHONATE OR OTHER ACCEPTABLE MEDICATION NEEDED FOR OSTEOPOROSIS (REFER TO SMARTSET #1146) 10/01/2022 COVID-19 Vaccine ( season) 2023 08/18/2021, 12/01/2020, 11/10/2020 Albumin/Creatinine Ratio 03/16/2024 023, 05/24/2022, 11/25/2021, Additional history exists CKD HGB USE SMARTSET 35283 03/16/202403/16, 03/16/2023, 05/24/2022, Additional history exists CKD PHOS USE SMARTSET 36665 03/16/2024 07/0 02/2023, 02/18/2022, 05/06/2021, Additional history [...] D LEVEL ONCE IN A LIFETIME-USE SMARTSET# 30169 Completed 03/16/2023, 05/24/2022, 07/02/2020, Additional history exists [...] Documents on File Type Date Recorded Patient Laminator Printed Circuit Boards Expl anation Advance Directives and Living Will 04/09/2012 LIVING WILL DECLARAT ION - LIVING WILL Latest Code Status on File Code Status Date Activated Date Inactivated Comments Full Code 12/10/2007 8:45 AM 12/10/2007 3:42 PM Care Teams Inspectors And Regulatory Officers Relationship Specialty Start Date End Date Anamaria Allison DO [address] [place] [address], [place] [address] PCP - General Family Medicine 10/26/22 documented as of this encounter
--- OUTSIDE RECORDS SUMMARY | 2023-12-23 14:45 | External Medical Summary | Summary of Care ---
Author Name Unknown Organization [facility] Address [address] [place] [address] Phone [phone] Care Team Providers Care House Player Name Role Phone YesikawinterAnamaria DO Primary Care Provider Reason for Visit * Reason Onset Date Comments Nurse Documentation 11/22/202311/20 Encounter Details Date Type Department Care Team (Late st Contact Info) Description 11/22/2023 10:30 AM EDT Scheduled Telephone Family Practice [address] [phone] College, Nurse [facility] Prac [address] [address] Arrived Allergies Active Allergy Reactions Criticality Noted [...] 04/10/2007 Overview: ICD-10 update of inactive term meterman current use of ant icoagulant therapy 08/11/2005 [...] mRNA, LNP-s, No Pre serve, 2-Dose Series (SpaceFace) 08/18/2021,12/01/2020,11/10/2020 Hepatitis B, 20+ yrs 07/07/1992,02/24/1992,01/21 PPD [...] Continues with productive cough, states sputum is legal file clerk than it was - now is yellowish/white. Coughing less today. Started using nebulizer this morning which has helped. Reports he is having diarrhea - liquid stools approx 5 times since 6 am this morning. States he is drinking fluids. States he is eating well. Started antibiotic (Cefdinir) Monday evening. Pharmacy confirmed ([facility] in [place]) should any medication changes be needed. documented in this encounter Plan of Treatment Upcoming Encounters Date Type Department Care Team (Late st Contact Info) Description 12/05/2023 2:00 PM EDT Office Visit Orthopaedics [facility] [address] [facility] [place] [address] Yrn Gutierrez MD [address] [place] [address] 12/12/2023 2:00 PM EDT Office Visit [facility] [place] [address] Yrn Gutierrez MD [address] [place] [address] 12/20/2023 10:45 AM EDT Office Visit [facility] [place] [address] Yrn Gutierrez MD [address] [place] [address] 12/26/2023 9:30 AM EDT Office Visit Sleep Disorders [facility] 132 [place] [address] Kitty Frost CRNP [address] [place] [address] 01/09/2024 9:20 AM EDT Office Visit Family Practice [address] [place] [address] 293 [place] [address] Anamaria Allison DO 293 [place] [address] 01/24/2024 10:45 AM EDT Office Visit [facility] 132 [place] [address] Yrn Gutierrez MD [address] [place] [address] 02/09/2024 2:00 PM EDT Office Visit Cardiology, [facility] 132 [facility] [place] [address] Kaden Francis PA-C [address] [place] [address] 04/08/2024 1:40 PM EDT Telemedicine [facility], [place] [address] [place], [place] [phone] Will Donaldson PA-C [address] [place], [place] [address] 06/05/2024 10:45 AM EDT Office Visit Urology [place] Jayesh Wood [address] [place] [address] [place] [address] Param Haines Jr., MD [address] [place] [address] [place] [address] Health Maintenance Due Date Last Done Comments *BISPHONATE OR OTHER ACCEPTABLE MEDICATION NEEDED FOR OSTEOPOROSIS (REFER TO SMARTSET #1146) 10/01/2022 COVID-19 Vaccine ( season) 2023 08/18/2021, 12/01/2020, 11/10/2020 Albumin/Creatinine Ratio 03/16/2024 023, 05/24/2022, 11/25/2021, Additional history exists CKD HGB USE SMARTSET 51771 03/16/202403/16, 03/16/2023, 05/24/2022, Additional history exists CKD PHOS USE SMARTSET 91714 03/16/2024 07/0 02/2023, 02/18/2022, 05/06/2021, Additional history [...] D LEVEL ONCE IN A LIFETIME-USE SMARTSET# 97758 Completed 03/16/2023, 05/24/2022, 07/02/2020, Additional history exists [...] Documents on File Type Date Recorded Patient People Greeter Expl anation Advance Directives and Living Will 04/09/2012 LIVING WILL DECLARAT ION - LIVING WILL Latest Code Status on File Code Status Date Activated Date Inactivated Comments Full Code 12/10/2007 8:45 AM 12/10/2007 3:42 PM Care Teams House Player Relationship Specialty Start Date End Date Anamaria Allison DO [address] [place] [address], [place] [address] PCP - General Family Medicine 10/26/22 documented as of this encounter
--- OUTSIDE RECORDS SUMMARY | 2023-12-23 14:46 | External Medical Summary | Summary of Care ---
Author Name Unknown Organization [facility] Address [address] [place] [address] Phone [phone] Care Team Providers Care Staking Press Operator Name Role Phone Yesikawinter Anamaria Rodriguez DO Primary Care Provider Encounter Details Date Type Department Care Team (Late st Contact Info) Description 10/31/2023 Population Health External Data Unspecified Department Allergies Active Allergy Reactions Criticality Noted Date Comments Edgar Inhibitors Cough 12/30/2011 Sulfa Antibiotics Unknown 01/03/2019 documented as of this encounter (statuses as of 11/01/2023) Medications Medication Sig Dispensed Refills Start Date End Date Status EQ Complete Multivit Adult 50+ Oral Tablet Take 2 Tabs by mouth daily. 0 Active Fluticasone Propionate 50 MCG/ACT Nasal Suspension (Flonase) Administer 2 Sprays into each nostril in the morning. 0 11/09/2020 Active Vitamin D 50 MCG (1999) Oral Capsule Take 2,000 Units by mouth [...] a day 90 g 1 10/06/2023 Active Hospital, Clinic, or Other Facility Administered Medication Ordered Dose Route Frequency Start Date End Date Status albuterol (PROVENTIL HFA) inhaler 4 PuffIndications:Obstructive sleep apnea syndrome,Simple chronic bronchitis (HCC) 4 Puff IN Q4H PRN 05/30/2017 Active documented as of this encounter (statuses as of 11/01/2023) Active Problems Problem Noted Date Diagnosed Date [...] as of this encounter (statuses as of 11/01/2023) Resolved Problems Problem Noted Date Diagnosed Date [...] as of this encounter (statuses as of 11/01/2023) Immunizations Name Administration Dates Next Due COVID-19 mRNA, LNP-s, No Pre serve, 2-Dose Series (Balzo) 08/18/2021,12/01/2020,11/10/2020 Hepatitis B, 20+ yrs 07/07/1992,02/24/1992,01/21 PPD [...] 12/05/2023 2:00 PM EDT Office Visit Orthopaedics [facility] [address] [place] [address] Yrn Gutierrez MD [address] [place] [address] 12/12/2023 2:00 PM EDT [facility] [address] [place] [address] Yrn Gutierrez MD [address] [place] [address] 12/20/2023 10:45 AM EDT Office Visit [facility] [place] [address] Yrn Gutierrez MD [address] [place] [address] 12/26/2023 9:30 AM EDT Office Visit Sleep Disorders [facility] 132 [facility] [phone] Kitty Frost CRNP [address] [facility] [address] 01/09/2024 9:20 AM EDT Office Visit Family Practice [address] [place] [address] 293 [place] [address] Anamaria Allison DO 293 [facility] [place] [address] 01/24/2024 10:45 AM EDT Office Visit [facility] [place] [address] Yrn Gutierrez MD [address] [place] [address] 02/09/2024 2:00 PM EDT Office Visit Cardiology, [facility] [address] [place] [address] Kaden Francis PA-C [address] [place] [address] 03/28/2024 2:40 PM EDT Office Visit Nephrology, [facility] [address] [facility] [place] [address] Ethan Gama MD [address] [facility] [place] [address] 04/08/2024 1:40 PM EDT Telemedicine Neurosurgery, [place] [address] [place], [place] [phone] Will Donaldson PA-C [address] [place], [place] [phone] 06/05/2024 10:45 AM EDT Office Visit Urology Jayesh Faith [address] [place] [address] [place] [address] Param Haines Jr., MD [address] [place] [address] [place] [address] Health Maintenance Due Date Last Done Comments *BISPHONATE OR OTHER ACCEPTABLE MEDICATION NEEDED FOR OSTEOPOROSIS (REFER TO SMARTSET #1146) 10/01/2022 COVID-19 Vaccine ( season) 2023 08/18/2021, 12/01/2020, 11/10/2020 Albumin/Creatinine Ratio 03/16/2024 023, 05/24/2022, 11/25/2021, Additional history exists CKD HGB USE SMARTSET 02046 03/16/202403/16, 03/16/2023, 05/24/2022, Additional history exists CKD PHOS USE SMARTSET 45763 03/16/2024 07/0 02/2023, 02/18/2022, 05/06/2021, Additional history exists TSH 03/16/2024 03/16/2023, 02/09, 11/25/2021, Additional history exists Depression Screening 10/06/2024 10/06/2023 O2 ASSESSMENT COMPLETED IN PAST YEAR FOR COPD 10/06/2024 10/06/2023 DTaP,Tdap,and Td Vaccines (3 - Td or Tdap) 05/04/2032 05/04/2022, 12/05/2011, 04/06/1999, Additional history exists Hepatitis B Completed 07/07/1992, 06/12, 02/24/1992, Additional history exists Pneumococcal Vaccine: 65+ Years Completed 01/27/2015, 06/02/2010, 11/27/2001 DXA Scan Discontinued 11/23/2015, 04/11, 04/26/2007, Additional history exists Zoster Vaccines Completed 07/01/2020, 04/11, 06/06/2012 Alpha-1 Antitrypsin Completed 05/24/2022 VITAMIN D LEVEL ONCE IN A LIFETIME-USE SMARTSET# 59400 Completed 03/16/2023, 05/24/2022, 07/02/2020, Additional history exists [...] Documents on File Type Date Recorded Patient Teacher Ballet Expl anation Advance Directives and Living Will 04/09/2012 LIVING WILL DECLARAT ION - LIVING WILL Latest Code Status on File Code Status Date Activated Date Inactivated Comments Full Code 12/10/2007 8:45 AM 12/10/2007 3:42 PM Care Teams Staking Press Operator Relationship Specialty Start Date End Date Anamaria Allison DO [address] [place] [place] [address] PCP - General Family Medicine 10/26/22 documented as of this encounter
--- OUTSIDE RECORDS SUMMARY | 2023-12-23 14:46 | External Medical Summary | Summary of Care ---
Author Name Unknown Organization [facility] Address [address] [place] [address] Phone [phone] Care Team Providers Care Carpet Loom Fixer Name Role Phone Anamaria Allison DO Primary Care Provider Reason for Visit * Reason Comments Follow Up Right knee Encounter Details Date Type Department Care Team (Latest Contact Info) Description 10/17/2023 2:00 PM EST Office Visit Orthopaed[facility] [place] [address] Yrn Gutierrez MD [address] [place] [address] Primary osteoarthritis of right knee*; Psoriatic arthropathy (HCC) Allergies Active Allergy Reactions Criticality Noted Date Comments Edgar Inhibitors Cough 12/30/2011 Sulfa Antibiotics Unknown 01/03/2019 documented as of this encounter (statuses as of 10/17/2023) Medications Medication Sig Dispensed Refills Start Date [...] 4 Puff IN Q4H PRN 05/30/2017 Active lidocaine 1% 1 mL - triamcinolone acetonide 40 mg/mL 1 mL inj 2 mLIndications:Primary osteoarthritis of right knee,Psoriatic arthropathy (HCC) 2 mL IJ ONCE 10/17/2023 10/17/2023 Ended documented as of this encounter (statuses as of 10/17/2023) Active Problems Problem Noted Date Diagnosed Date [...] as of this encounter (statuses as of 10/17/2023) Resolved Problems Problem Noted Date Diagnosed Date [...] 04/10/2007 Overview: ICD-10 update of inactive term shelter current use of ant icoagulant therapy 08/11/2005 [...] as of this encounter (statuses as of 10/17/2023) Immunizations Name Administration Dates Next Due COVID-19 [...] Progress Notes * Yrn Gutierrez MD - 10/17/2023 1:48 PM EST Neelam Woods [id number] Neelam Woods is a 87 year old male who presents for f/u to [facility] for right knee injury/pain. I saw him initially for this on 02/20/2023 Quality: reviewed and agree with Nursing Notes for HPI elements History: History on 02/20/2023- Pt presents today for right knee pain. Pt has had injections in the past was approximately 3 monthsand helps with the pain. More pain when he uses it a lot. Feels like knee is going to give out on him. Does not trust knee to do steps. Since that visit: presents today for right knee pain. Pain 3/10. Pain Anterior and posterior knee radiating down sesay. Standing yesterday cleaning a cast iron skillet then could not put weight on it. Clicking,feeling like it's going to give out. Karen PT. Has a brace but did not work and had injections in knee in the past. ROS: ROS per HPI otherwise non-contributory Past Medical History: Diagnosis Date Adhesive capsulitis [...] Fall 2004 Grave's Disease, TSI was elevated Family History Problem Relation Age of Onset Heart Disorder Father Other (Other) Father no hx of skin ca Renal Hx Mother Thyroid Disorder Mother Large goiter; had surgery Other (Other) Mother no hx of skin ca Heart Disorder Brother [place] AGE 60 73 [place] 99 Gastro-intestinal disorder Brother AGE 75 [place] 99 HIATAL HERNIA Endocrine Disorder Sister ELEV CHOL Social History Socioeconomic History Marital status: Spouse name: JUSTINE Number of children: 2 Years of education: 12 Highest education level: Not on file Occupational History Occupation: RETIRED Comment: 02/09/1998 Tobacco Use Smoking status: Never Passive exposure: Never Smokeless tobacco: Never Vaping Use Vaping Use: Never used Substance and Sexual Activity Alcohol use: No Drug use: No Sexual activity: Yes Partners: Female Other Topics Concern Service No Blood Transfusions No Caffeine Concern No Occupational Exposure No Hobby Hazards Yes Comment: WOODWORKING Sleep Concern Yes Comment: VARIABLE Stress Concern No Weight Concern No Special Diet Not Asked Back Care Yes Comment: DR BARROSO,CHIRO OCC Exercise No Bike Helmet Not Asked Seat Belt Yes Self-Exams Not Asked Social History Narrative 1 cat in his home. No mold. Retired from [employer] in 1961 Social Determinants of Health Financial Resource Strain: Not on file Food Insecurity: No Food Insecurity (10/06/2023) Hunger Vital Sign Worried About Running Out of Food in the Last Year: Never true Ran Out of Food in the Last Year: Never true Transportation Needs: Not on file Physical Activity: Not on file Stress: Not on file Social Connections: Not on file Intimate Partner Violence: Not on file Housing Stability: Not on file Physical Exam Constitutional: Generally well-nourished and in no acute distress Psychiatric: Mood and Affect normal Eyes: EOMI Respiratory: Normal respiratory effort with regular rate and rhythm Cardiovascular: No edema in the affected extremity(s) Knee Exam, Bilateral Inspection: Unremarkable Alignment: Normal Bilateral Effusion: Negative Bilateral Palpation: Greatest tenderness along lateral joint but also medial joint ROM: Flexion/Neutral/Extension: R - 120/0/0 Strength: SLR: Full strength with flexion extension Special Tests: Crepitus - positive Radiology (I have personally reviewed the following films): 02/20/2023: Four view x-ray right knee FINDINGS: Bones/joints: Moderate to severe degenerative changes lateral knee compartment. Mild degenerative changes medial knee compartment, patellofemoral articulation. Findings stable. Soft tissues: Normal. IMPRESSION IMPRESSION: 1. No evidence of acute osseous injury. 2. Tricompartmental degenerative osteoarthritis most pronounced lateral knee compartment. Assessment and Plan: 1) Chronic R knee pain Likely secondary to DJD. Greatest laterally where it is severe Options discussed Intra-articular steroid injection performed 02/20/2023. As noted before he has had these performed by other providers in the past which grade 3 months ago and they have helped. Reports he has received steroid injections from his PCP since the 1 he received for me on 02/20/2023. They do help. However they wear off. He believes the most recent 1 was over 3 months ago. His pain is at its typical baseline once the shot has worn off it is not worse. There have been no injuries. Discussed options Intra-articular steroid injection performed today 10/17/2023 Scheduled to start viscosupplementation Given he is also having significant flare of his psoriasis I sent and ask a doc to Rheumatology to see if consultation with them would be of any benefit systemic treatments. 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 Procedure note (knee injection), right : Time out: Prior to injection, a time out was called to confirm the administration of appropriate medicine, patient name, procedure and confirm to the best of our ability and knowledge the presence of any necessary risks and benefits. Patient verbalizes understanding. Sterile techinique applied. Skin sterilized with alcohol swab. Knee injected using 1.5 inch, 22 gauge needle. Injected with 1 ml lidocaine 1%, triamcinolone acetonide 40mg/ml 1 ml. Patient tolerated procedure with no significant bleeding or adverse reaction. Patient instructed to call or return to clinic for fever or warmth and redness at injection site for potential infection. Patient also advised as to potential for steroid flare reaction including increased pain and redness at injection site which should be treated with ice and resolve within 24 hours. Yrn Gutierrez MD Primary Care Sports Medicine Orthopaedics [facility] [address] [facility] [place] [address] documented in this encounter Nursing Notes * Keke Cerrato, RN - 10/17/2023 1:54 PM EST Pt presents today for right knee pain. Pain 3/10. Pain Anterior and posterior knee radiating down sesay. Standing yesterday cleaning a cast iron skillet then could not put weight on it. Clicking,feeling like it's going to give out. Karen PT. Has a brace but did not work and had injections in knee in the past. Keke Cerrato RN documented in this encounter Plan of Treatment Upcoming Encounters Date Type Department Care Team (Late st Contact Info) Description 12/05/2023 2:00 PM EDT Office Visit [facility] [address] [facility] [place] [address] Yrn Gutierrez MD [address] [place] [address] 12/12/2023 2:00 PM EDT Office Visit [facility] [address] [facility] [place] [address] Yrn Gutierrez MD [address] [place] [address] 12/20/2023 10:45 AM EDT Office Visit Orthopaedics [facility] [address] [facility] [place] [address] Yrn Gutierrez MD [address] [facility] [place] [address] 12/26/2023 9:30 AM EDT Office Visit Sleep Disorders Ctr [facility] [address] [place] [id number] Kitty Frost CRNP [address] [place] [address] 01/09/2024 9:20 AM EDT Office Visit Family Practice [address] [place] [address] [address] [place] [address] Anamaria Allison DO [address] [facility] [place] [address] 01/24/2024 10:45 AM EDT Office Visit Orthopaedics [facility] [address] [facility] [place] [address] Yrn Gutierrez MD [address] [facility] [place] [address] 02/09/2024 2:00 PM EDT Office Visit Cardiology, [facility] [address] [place] [address] Kaden Francis PA-C [address] [place] [address] 03/28/2024 2:40 PM EDT Office Visit Nephrology, [facility] [address] [place] [address] Ethan Gama MD [address] [place] [address] 04/08/2024 1:40 PM EDT Telemedicine Neurosurgery, [place] [address] [place] [address] Will Donaldson PA-C [address] [place] [address] 06/05/2024 10:45 AM EDT Office Visit Urology Jayesh Faith [address] [place] [address] [place] [address] Param Haines Jr., MD [address] [place] [address] [place] [address] Health Maintenance Due Date Last Done Comments *BISPHONATE OR OTHER ACCEPTABLE MEDICATION NEEDED FOR OSTEOPOROSIS (REFER TO SMARTSET #1146) 10/01/2022 COVID-19 Vaccine ( season) 2023 08/18/2021, 12/01/2020, 11/10/2020 Albumin/Creatinine Ratio 03/16/2024 023, 05/24/2022, 11/25/2021, Additional history exists CKD HGB USE SMARTSET 60954 03/16/202403/16, 03/16/2023, 05/24/2022, Additional history exists CKD PHOS USE SMARTSET 92973 03/16/2024 07/02/2023, 02/18/2022, 05/06/2021, Additional history exists [...] D LEVEL ONCE IN A LIFETIME-USE SMARTSET# 51138 Completed 03/16/2023, 05/24/2022, 07/02/2020, Additional history exists [...] knee- Primary Primary localized osteoarthrosis, lower leg Psoriatic arthropathy (HCC) Psoriatic arthropathy documented in this encounter Administered Medications Inactive Administered Medications - up to 3 most recent administrations Medication Order MAR Action Action Date Dose Rate Site lidocaine 1% 1 mL - triamcinolone acetonide 40 mg/mL 1 mL inj 2 mL 2 mL, Injection, ONCE, On Tu10/17/23 at 1445, For 1 dose, Lidocaine 1% 1mL Triamcinolone Acetonide 40 mg/mL 1 mL (Final concentration = 20 mg/mL) REFRIGERATE and SHAKE WELL Given 10/17/2023 2:22 PM EST 2 mL Knee Right documented in this encounter Advance Directives Documents on File Type Date Recorded Patient Remarketing Rep Expl anation Advance Directives and Living Will 04/09/2012 LIVING WILL DECLARAT ION - LIVING WILL Latest Code Status on File Code Status Date Activated Date Inactivated Comments Full Code 12/10/2007 8:45 AM 12/10/2007 3:42 PM Care Teams Carpet Loom Fixer Relationship Specialty Start Date End Date Anamaria Allison DO [address] [facility] [place] [address] PCP - General Family Medicine 10/26/22 documented as of this encounter
--- OUTSIDE RECORDS SUMMARY | 2023-12-23 14:46 | External Medical Summary | Summary of Care ---
Author Name Unknown Organization [facility] Address [address] [place] [address] Phone [phone] Care Team Providers Care Fountain Roller Assembler Name Role Phone Anamaria Allison DO Primary Care Provider Encounter Details Date Type Department Care Team (Late st Contact Info) Description 10/11/2023 Patient Reported Data Patient Survey Ortho [facility] Allergies Active Allergy Reactions Criticality Noted Date Comments Edgar Inhibitors Cough 12/30/2011 Sulfa Antibiotics Unknown 01/03/2019 documented as of this encounter (statuses as of 10/11/2023) Medications Medication Sig Dispensed Refills Start Date [...] as of this encounter (statuses as of 10/11/2023) Active Problems Problem Noted Date Diagnosed Date [...] as of this encounter (statuses as of 10/11/2023) Resolved Problems Problem Noted Date Diagnosed Date [...] as of this encounter (statuses as of 10/11/2023) Immunizations Name Administration Dates Next Due COVID-19 mRNA, LNP-s, No Pre serve, 2-Dose Series (CultureIQ) 08/18/2021,12/01/2020,11/10/2020 Hepatitis B, 20+ yrs 07/07/1992,02/24/1992,01/21 PPD [...] Care Team (Late st Contact Info) Description 10/17/2023 2:00 PM EST Office Visit Orthopaedics [facility] [address] [place] [address] Yrn Gutierrez MD [address] [place] [address] 12/26/2023 9:30 AM EDT Office Visit [facility] Disorders Ctr [facility] [address] [place] [phone] Kitty Frost CRNP [address] [place] [address] 01/09/2024 9:20 AM EDT Office Visit Family Practice [address] [place] [address] [address] [place] [address] Anamaria Allison DO [address] [place] [address] 01/24/2024 10:45 AM EDT Office Visit Orthopaedics [facility] [address] [place] [address] Yrn Gutierrez MD [address] [facility] [place] [address] 02/09/2024 2:00 PM EDT Office Visit Cardiology, [facility] [address] [place] [address] Kaden Francis PA-C [address] [place] [address] 03/28/2024 2:40 PM EDT Office Visit Nephrology, [facility] [address] [place] [address] Ethan Gama MD [address] [place] [address] 04/08/2024 1:40 PM EDT Telemedicine Neurosurgery, [place] [address] [place] [address] Will Donaldson PA-C [address] [place] [address] 06/05/2024 10:45 AM EDT Office Visit Urology Jayesh Faith [address] [place] [address] [place] [address] Param Haines Jr., MD [address] [place] [address] [place] [address] Health Maintenance Due Date Last Done Comments *BISPHONATE OR OTHER ACCEPTABLE MEDICATION NEEDED FOR OSTEOPOROSIS (REFER TO SMARTSET #1146) 10/01/2022 COVID-19 Vaccine ( season) 2023 08/18/2021, 12/01/2020, 11/10/2020 Albumin/Creatinine Ratio 03/16/2024 023, 05/24/2022, 11/25/2021, Additional history exists CKD HGB USE SMARTSET 77720 03/16/202403/16, 03/16/2023, 05/24/2022, Additional history exists CKD PHOS USE SMARTSET 64439 03/16/2024 07/0 02/2023, 02/18/2022, 05/06/2021, Additional history [...] D LEVEL ONCE IN A LIFETIME-USE SMARTSET# 64793 Completed 03/16/2023, 05/24/2022, 07/02/2020, Additional history exists [...] Documents on File Type Date Recorded Patient Speech Lang Path Therapist Expl anation Advance Directives and Living Will 04/09/2012 LIVING WILL DECLARAT ION - LIVING WILL Latest Code Status on File Code Status Date Activated Date Inactivated Comments Full Code 12/10/2007 8:45 AM 12/10/2007 3:42 PM Care Teams Fountain Roller Assembler Relationship Specialty Start Date End Date Anamaria Allison DO [address] [place] [address] PCP - General Family Medicine 10/26/22 documented as of this encounter
--- OUTSIDE RECORDS SUMMARY | 2023-12-23 14:46 | External Medical Summary | Summary of Care ---
Author Name Unknown Organization [facility] Address [address] [place] [address] Phone [phone] Care Team Providers Care Home Service Technician Name Role Phone Anamaria Allison DO Primary Care Provider [phone] Reason for Visit * Reason Comments Acute Encounter Details Date Type Department Care Team (Late st Contact Info) Description 11/15/2023 12:00 PM EST Office Visit Family Practice [facility] [address] [place] [address] Anamaria Allison DO [address] [place] [address] Rash and nonspecific skin eruption*; Dyslipidemia, goal LDL below 100; Stage 3a chronic kidney disease (HCC) Allergies Active Allergy Reactions Criticality Noted Date Comments Edgar Inhibitors Cough 12/30/2011 Sulfa Antibiotics Unknown 01/03/2019 documented as of this encounter (statuses as of 11/15/2023) Medications Medication Sig Dispensed Refills Start Date [...] as of this encounter (statuses as of 11/15/2023) Active Problems Problem Noted Date Diagnosed Date [...] as of this encounter (statuses as of 11/15/2023) Resolved Problems Problem Noted Date Diagnosed Date [...] as of this encounter (statuses as of 11/15/2023) Immunizations Name Administration Dates Next Due COVID-19 mRNA, LNP-s, No Pre serve, 2-Dose Series ([employer]) 08/18/2021,12/01/2020,11/10/2020 Hepatitis B, 20+ yrs 07/07/1992,02/24/1992,01/21 PPD [...] Sign Reading Time Taken Comments Blood Pressure 142/70 11/15/2023 11:45 AM EST Pulse 69 11/15/2023 11:45 AM EST Temperature 36.3 C (97.3 F) 11/15/2023 11:[address] Respiratory Rate 16 11/15/2023 11:45 AM EST Oxygen Saturation 99% 11/15/2023 11:45 AM EST Inhaled Oxygen Concentration - - Weight 83.6 kg (184 lb 3.2 oz) 11/15/2023 11:45 AM EST Height 170.2 cm (5' 7") 11/15/2023 11:45 AM EST Body Mass Index 28.85 11/15/2023 11:45 AM EST documented in this encounter Progress Notes * Anamaria Allison, - 11/15/2023 11:49 AM EST SUBJECTIVE: Chief Complaint Patient presents with Acute HPI: Armani Woods is a 88 year old male who presents today with complaints of a rash. It startedabout 2 weeks ago. It is on his arms and torso. He has psoriasis on his legs but this is different.He states that it will start red and then turn whitish and peel in some areas. No itching. No drainage. Pt notes he had a rash like this years ago after taking a gummy vitamin. This time, nothing newother than betamethasone cream on his legs. Has not used it anywhere that the rash is. 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 100 Tablet 2 Metoprolol Succinate ER 25 MG Oral Tablet Extended Release 24 Hour (toPROL XL) TAKE 1.5 TABLETS BY MOUTH DAILY IN THE MORNING. TABS MAY BE CUT, DO NOT CRUSH OR CHEW. 135 Tablet 3 Fdagxeobvae-Xxkkzoeoz-Dlykge 100-62.5-25 MCG/ACT Aerosol Powder Breath Activated (Trelegy Ellipta) Inhale 1 Puff by mouth in the morning. 180 Each 3 Betamethasone Dipropionate 0.05 % External Cream (Diprosone) Apply topically to affected area 2 times a day 90 g 1 amLODIPine Besylate 2.5 MG Oral Tablet (Norvasc) Take by mouth 1 Tablet in the morning. 90 Tablet 3 Knee Brace/Hinged Bars Medium Wear daily when active 1 Each 0 Ipratropium-Albuterol 0.5-2.5 (3) MG/3ML Inhalation Solution (Duoneb) Inhale 3 mL via nebulizer every 6 hours as needed for Congestion or Shortness of Breath. 1080 mL 1 Meclizine HCl 25 MG Oral Tablet (Antivert) TAKE ONE TABLET BY MOUTH THREE TIMES A DAY NEEDED FORDIZZINESS 90 Tablet 5 Current Facility-Administered Medications Medication Dose Route Frequency [...] DIAGNOSTIC (RECTUM) 02/20/2015 adenomatous polyp, repeat 3 yrs/[facility] COLONOSCOPY, DIAGNOSTIC (RECTUM) 07/11/2018 adenomatous polyp, diverticulosis/[facility] COLONOSCOPY, GI REFERRAL OP 08/23/2006 [...] arthralgias, gait problem and joint swelling. Skin: Positive for rash. Negative for color change and pallor. OBJECTIVE: BP 142/70 (BP Site: Left Arm, BP Position: Sitting, BP Cuff Size: Regular) | Pulse 69 | Temp 36.3 C (97.3 F) (Tympanic) | Resp 16 | Ht 1.702 m (5' 7") | Wt 83.6 kg (184 lb 3.2 oz) | SpO2 99% | BMI 28.85 kg/m | BSA 1.99 m PHYSICAL EXAM: Physical Exam Constitutional: General: [...] oriented to person, place, and time. ASSESSMENT/PLAN: (R21) Rash and nonspecific skin eruption (primary encounter diagnosis) Plan: predniSONE 10 MG Oral Tablet (Deltasone) Unclear etiology. Start prednisone taper. Pt does have psoriasis in addition to this so obscures some areas. If persistent, will have him see dermatology for further evaluation. (E78.5) Dyslipidemia, goal LDL below 100 Plan: Pt will remain on atorvastatin. No changes. (N18.31) Stage 3a chronic kidney disease (HCC) Plan: Renal function has been stable. Will monitor. Follow-up: as scheduled Total time today including reviewing chart before the visit, pertinent labs, imaging reports, face to face time, and documentation time was 31 minutes. Anamaria Allison DO documented in this encounter Nursing Notes * Irma Diaz LPN - 11/15/2023 11:42 AM EST Patient here for an acute visit. Reports on torso and both arms. States it is not itchy. No drainage. Rash started approx 2 weeks ago. States it started after using betamethasone cream for psoriasis on his legs . Only used betamethasone on his legs. Pt states that years ago he took some gummy vitamins and had a similar reaction. States he stopped taking them and then started again after awhile and developed the rash again. documented in this encounter Plan of Treatment Upcoming Encounters Date Type Department Care Team (Late st Contact Info) Description 11/20/2023 11:30 AM EDT Scheduled Telephone Family Practice [facility] 293 [facility] [place] [phone] [place], Nurse [facility] [address] [address] 12/05/2023 2:00 PM EDT Office Visit Orthopaedics [facility] [address] [place] [address] Yrn Gutierrez MD [address] [place] [address] 12/12/2023 2:00 PM EDT Office Visit Orthopaedics [facility] [address] [place] [address] Yrn Gutierrez MD [address] [place] [address] 12/20/2023 10:45 AM EDT Office Visit Orthopaedics [facility] 132 [facility] [place] [address] Yrn Gutierrez MD [facility] [place] [address] 12/26/2023 9:30 AM EDT Office Visit Sleep Disorders Ctr [facility] 132 [facility] [place] [phone] Kitty Frost CRNP [address] [place] [address] 01/09/2024 9:20 AM EDT Office Visit Family Practice [address] [place] [address] 293 [facility] [place] [address] Anamaria Allison DO 293 [facility] [place] [address] 01/24/2024 10:45 AM EDT Office Visit Orthopaedics [facility] 132 [facility] [place] [address] Yrn Gutierrez MD [address] [facility] [place] [address] 02/09/2024 2:00 PM EDT Office Visit Cardiology, [facility] 132 [facility] [place] [address] Kaden Francis PA-C [address] [place] [address] 03/28/2024 2:40 PM EDT Office Visit Nephrology, [facility] [address] [place] [address] Ethan Gama MD 200 [facility] [place] [address] 04/08/2024 1:40 PM EDT Telemedicine Neurosurgery, [place] [address] [place] [address] Will Donaldson PA-C [address] [place] [address] 06/05/2024 10:45 AM EDT Office Visit Urology Jayesh Faith [address] [place] [address] [place] [address] Param Haines Jr., MD [address] [place] [address] [place] [id number] Health Maintenance Due Date Last Done Comments *BISPHONATE OR OTHER ACCEPTABLE MEDICATION NEEDED FOR OSTEOPOROSIS (REFER TO SMARTSET #1146) 10/01/2022 COVID-19 Vaccine ( season) 2023 08/18/2021, 12/01/2020, 11/10/2020 Postponed from 05/12/2023 (Patient Declined After Education) Albumin/Creatinine Ratio 03/16/2024 023, 05/24/2022, 11/25/2021, Additional history exists CKD HGB USE SMARTSET 50531 03/16/202403/16, 03/16/2023, 05/24/2022, Additional history exists CKD PHOS USE SMARTSET 15928 03/16/2024 07/0 02/2023, 02/18/2022, 05/06/2021, Additional history [...] D LEVEL ONCE IN A LIFETIME-USE SMARTSET# 23952 Completed 03/16/2023, 05/24/2022, 07/02/2020, Additional history exists [...] as of this encounter Visit Diagnoses Diagnosis Rash and nonspecific skin eruption- Primary Rash and other nonspecific skin eruption Dyslipidemia, goal LDL below 100 Other and unspecified hyperlipidemia Stage 3a chronic kidney disease (HCC) documented in this encounter Advance Directives Documents on File Type Date Recorded Patient Bottle Caser Expl anation Advance Directives and Living Will 04/09/2012 LIVING WILL DECLARAT ION - LIVING WILL Latest Code Status on File Code Status Date Activated Date Inactivated Comments Full Code 12/10/2007 8:45 AM 12/10/2007 3:42 PM Care Teams Home Service Technician Relationship Specialty Start Date End Date Anamaria Allison DO [address] [facility] [place] [address] PCP - General Family Medicine 10/26/22 documented as of this encounter
--- OUTSIDE RECORDS SUMMARY | 2023-12-23 14:46 | External Medical Summary | Summary of Care ---
Author Name Unknown Organization [facility] Address [address] [place] [address] Phone [phone] Care Team Providers Care Exit Booth Agent Name Role Phone Anamaria Allison DO Primary [...] mRNA, LNP-s, No Pre serve, 2-Dose Series ([employer]) 08/18/2021,12/01/2020,11/10/2020 Hepatitis B, 20+ yrs 07/07/1992,02/24/1992,01/21 [...] 10/17/2023 2:00 PM EST Office Visit Orthopaedics [facility] [address] [place] [address] Yrn Gutierrez MD [address] [place] [address] 12/26/2023 9:30 AM EDT Office Visit Sleep Disorders Ctr [facility] 132 [facility] [place] [address] Kitty Frost CRNP 132 [facility] [place] [address] 01/09/2024 9:20 AM EDT Office Visit Family Practice [address] [place] [address] 293 [place] [address] Anamaria Allison DO 293 [place] [address] 01/24/2024 10:45 AM EDT Office Visit Orthopaedics [facility] [address] [place] [address] Yrn Gutierrez MD 132 [facility] [place] [address] 02/09/2024 2:00 PM EDT Office Visit Cardiology, [facility] [address] [place] [address] Kaden Francis PA-C 132 [facility] [place] [address] 03/28/2024 2:40 PM EDT Office Visit Nephrology, [place] [address] [place] [address] Ethan Gama MD [address] [place] [address] 04/08/2024 1:40 PM EDT Telemedicine Neurosurgery, [place] [address] [place] [address] Will Donaldson PA-C [address] [place] [address] 06/05/2024 10:45 AM EDT Office Visit Urology Jayesh Faith [address] [place] [address] [place] [address] Param Haines Jr., MD [address] [place] [address] [place] [address] Health Maintenance Due Date Last Done Comments *BISPHONATE OR OTHER ACCEPTABLE MEDICATION NEEDED FOR OSTEOPOROSIS (REFER TO SMARTSET #1146) 10/01/2022 COVID-19 Vaccine ( season) 2023 08/18/2021, 12/01/2020, 11/10/2020 Albumin/Creatinine Ratio 03/16/2024 023, 05/24/2022, 11/25/2021, Additional history exists CKD HGB USE SMARTSET 32356 03/16/202403/16, 03/16/2023, 05/24/2022, Additional history exists CKD PHOS USE SMARTSET 75187 03/16/2024 07/0 02/2023, 02/18/2022, 05/06/2021, Additional history [...] D LEVEL ONCE IN A LIFETIME-USE SMARTSET# 63448 Completed 03/16/2023, 05/24/2022, 07/02/2020, Additional history exists [...] Documents on File Type Date Recorded Patient Weigher Production Expl anation Advance Directives and Living Will 04/09/2012 LIVING WILL DECLARAT ION - LIVING WILL Latest Code Status on File Code Status Date Activated Date Inactivated Comments Full Code 12/10/2007 8:45 AM 12/10/2007 3:42 PM Care Teams Exit Booth Agent Relationship Specialty Start Date End Date Anamaria Allison DO 293 [place] [address] PCP - General Family Medicine 10/26/22 documented as of this encounter
--- OUTSIDE RECORDS SUMMARY | 2023-12-23 14:46 | External Medical Summary | Summary of Care ---
Author Name Unknown Organization [facility] Address [address] [place] [address] Phone [phone] Care Team Providers Care Air Defense Artillery Officer Name Role Phone Anamaria Allison DO [...] 04/10/2007 Overview: ICD-10 update of inactive term residential current use of ant icoagulant therapy 08/11/2005 [...] mRNA, LNP-s, No Pre serve, 2-Dose Series ([employer]) 08/18/2021,12/01/2020,11/10/2020 Hepatitis B, 20+ yrs 07/07/1992,02/24/1992,01/21 PPD [...] 10/17/2023 2:00 PM EST Office Visit Orthopaedics [facility] 132 [facility] [place] [place] [address] Yrn Gutiererz MD [address] [place] [address] 12/26/2023 9:30 AM EDT Office Visit Sleep Disorders Ctr [facility] 132 [facility] [place] [address] Kitty Frost CRNP 132 [facility] [place] [address] 01/09/2024 9:20 AM EDT Office Visit Family Practice [address] [place] [address] 293 [facility] [place] [address] Anamaria Allison DO 293 [place] [address] 01/24/2024 10:45 AM EDT Office Visit Orthopaedics [facility] 132 [facility] [place] [place] [address] Yrn Gutierrez MD 132 [facility] [place] [address] 02/09/2024 2:00 PM EDT Office Visit Cardiology, [facility] 132 [facility] [place] [place] [address] Kaden Francis PA-C [address] [place] [address] 03/28/2024 2:40 PM EDT Office Visit Nephrology, [place] [address] [place] [address] Ethan Gama MD [address] [place] [address] 04/08/2024 1:40 PM EDT Telemedicine Neurosurgery, [place] [address] [place] [address] Will Donaldson PA-C [address] [place] [address] 06/05/2024 10:45 AM EDT Office Visit Urology Jayesh Faith [address] [place] [address] [place] [address] Param Haines Jr., MD [address] [place] [address] [place] [address] Health Maintenance Due Date Last Done Comments *BISPHONATE OR OTHER ACCEPTABLE MEDICATION NEEDED FOR OSTEOPOROSIS (REFER TO SMARTSET #1146) 10/01/2022 COVID-19 Vaccine ( season) 2023 08/18/2021, 12/01/2020, 11/10/2020 Albumin/Creatinine Ratio 03/16/2024 023, 05/24/2022, 11/25/2021, Additional history exists CKD HGB USE SMARTSET 96962 03/16/202403/16, 03/16/2023, 05/24/2022, Additional history exists CKD PHOS USE SMARTSET 16202 03/16/2024 07/0 02/2023, 02/18/2022, 05/06/2021, Additional history [...] D LEVEL ONCE IN A LIFETIME-USE SMARTSET# 30067 Completed 03/16/2023, 05/24/2022, 07/02/2020, Additional history exists [...] Documents on File Type Date Recorded Patient Bonding Agent Expl anation Advance Directives and Living Will 04/09/2012 LIVING WILL DECLARAT ION - LIVING WILL Latest Code Status on File Code Status Date Activated Date Inactivated Comments Full Code 12/10/2007 8:45 AM 12/10/2007 3:42 PM Care Teams Air Defense Artillery Officer Relationship Specialty Start Date End Date Anamaria Allison DO 293 [place] [address] PCP - General Family Medicine 10/26/22 documented as of this encounter
--- OUTSIDE RECORDS SUMMARY | 2023-12-23 14:46 | External Medical Summary | Summary of Care ---
Author Name Unknown Organization [facility] Address [address] [place] [address] Phone [phone] Care Team Providers Care Residence Life Director Name Role Phone Anamaria Allison DO Primary Care Provider [phone] Reason for Visit * Reason Comments Follow Up Right knee Encounter Details Date Type Department Care Team (Latest Contact Info) Description 10/17/2023 2:00 PM EST Office Visit [facility]opaedics [facility] [place] [address] Yrn Gutierrez MD [address] [place] [address] Primary osteoarthritis of right knee*; Psoriatic arthropathy [...] 04/10/2007 Overview: ICD-10 update of inactive term [facility] current use of ant icoagulant therapy 08/11/2005 [...] - 10/17/2023 1:48 PM EST Neelam Woods [id number] Neelam Woods is a 87 year old male who presents for f/u to [facility] Medicine for right knee [...] hx of skin ca Heart Disorder Brother ID AGE 60 73 [place] 99 Gastro-intestinal disorder [...] in his home. No mold. Retired from [employer] 1961 Social Determinants of Health Financial [...] systemic treatments. 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 Procedure note (knee [...] Gutierrez MD Primary Care Sports Medicine Orthopaedics [facility] 132 [place] [address] documented in this encounter Nursing Notes * [...] Description 12/05/2023 2:00 PM EDT Office Visit [facility] 132 [facility] [place] [address] Yrn Gutierrez MD [address] [place] [address] 12/12/2023 2:00 PM EDT Office Visit [facility] 132 [facility] [place] [address] Yrn Gutierrez MD [address] [place] [address] 12/20/2023 10:45 AM EDT Office Visit Orthopaedics [facility] [place] [address] Yrn Gutierrez MD [address] [facility] [place] [address] 12/26/2023 9:30 AM EDT Office Visit Sleep Disorders Ctr [facility] 132 [facility] [place] [address] Kitty Frost CRNP [address] [facility] [place] [address] 01/09/2024 9:20 AM EDT Office Visit Family Practice [address] [place] [address] 293 [facility] [place] [address] Anamaria Allison DO 293 [place] [address] 01/24/2024 10:45 AM EDT Office Visit Orthopaedics [facility] [address] [facility] [place] [address] Yrn Gutierrez MD 132 [place] [address] 02/09/2024 2:00 PM EDT Office Visit Cardiology, [facility] [address] [facility] [place] [address] Kaden Francis PA-C [address] [facility] [place] [address] 03/28/2024 2:40 PM EDT Office Visit Nephrology, [facility] [address] [place] [address] Ethan Gama MD [address] [place] [address] 04/08/2024 1:40 PM EDT Telemedicine Neurosurgery, [place] [address] [place] [address] Will Donaldson PA-C [address] [place] [address] 06/05/2024 10:45 AM EDT Office Visit Urology Jayesh Faith [address] [place] [address] [place] [address] Param Haines Jr., MD [address] [place] [address] [place] [address] Health Maintenance Due Date Last Done Comments *BISPHONATE OR OTHER ACCEPTABLE MEDICATION NEEDED FOR OSTEOPOROSIS (REFER TO SMARTSET #1146) 10/01/2022 COVID-19 Vaccine ( season) 2023 08/18/2021, 12/01/2020, 11/10/2020 Albumin/Creatinine Ratio 03/16/2024 023, 05/24/2022, 11/25/2021, Additional history exists CKD HGB USE SMARTSET 99368 03/16/202403/16, 03/16/2023, 05/24/2022, Additional history exists CKD PHOS USE SMARTSET 32087 03/16/2024 07/02/2023, 02/18/2022, 05/06/2021, Additional history exists [...] D LEVEL ONCE IN A LIFETIME-USE SMARTSET# 97268 Completed 03/16/2023, 05/24/2022, 07/02/2020, Additional history exists [...] Documents on File Type Date Recorded Patient Assembly Riveter Expl anation Advance Directives and Living Will 04/09/2012 LIVING WILL DECLARAT ION - LIVING WILL Latest Code Status on File Code Status Date Activated Date Inactivated Comments Full Code 12/10/2007 8:45 AM 12/10/2007 3:42 PM Care Teams Residence Life Director Relationship Specialty Start Date End Date Anamaria Allison DO [address] [facility] [place] [address] PCP - General Family Medicine 10/26/22 documented as of this encounter
--- OUTSIDE RECORDS SUMMARY | 2023-12-23 14:46 | External Medical Summary | Summary of Care ---
Author Name Unknown Organization [facility] Address [address] [place] [address] Phone [phone] Care Team Providers Care Nailing Machine Operator Name Role Phone Anamaria Allison DO Primary Care Provider Reason for Visit * Reason Comments Follow Up Right knee Encounter Details Date Type Department Care Team (Latest Contact Info) Description 10/17/2023 2:00 PM EST Office Visit [facility]opa[facility] [place] [address] Yrn Gutierrez MD [address] [place] [address] Primary osteoarthritis of right knee*; Psoriatic arthropathy (HCC) Allergies Active Allergy Reactions Criticality Noted Date Comments Edgar Inhibitors Cough 12/30/2011 Sulfa Antibiotics Unknown 01/03/2019 documented as of this encounter (statuses as of 10/20/2023) Medications Medication Sig Dispensed Refills Start Date [...] as of this encounter (statuses as of 10/20/2023) Active Problems Problem Noted Date Diagnosed Date [...] as of this encounter (statuses as of 10/20/2023) Resolved Problems Problem Noted Date Diagnosed Date [...] as of this encounter (statuses as of 10/20/2023) Immunizations Name Administration Dates Next Due COVID-19 [...] Gutierrez MD - 10/17/2023 1:48 PM EST Armani Woods [id number] Armani Woods is a 87 year old male who presents for f/u to [facility] for right [...] hx of skin ca Heart Disorder Brother [place] AGE 60 73 [place] 99 Gastro-intestinal disorder [...] in his home. No mold. Retired from [employer] in 1961 Social Determinants of Health Financial [...] systemic treatments. He noted years ago a tobacco sizer had him on Enbrel. 10/20/2023: Update Received ask a doc response from rheumatology. Dr. Kedar Shea (Rheumatology) Based on the review of his chart he does not think he has an inflammatory arthritis such as psoriatic arthritis. Nursing to inform the patient we will continue to treat his osteoarthritis and that a rheumatology consultation at this time was not recommended. Procedure note (knee injection), right : Time [...] Gutierrez MD Primary Care Sports Medicine Orthopaedics [facility] [address] [facility] [address] documented in this encounter Nursing Notes * Keke Cerrato RN - 10/17/2023 1:54 PM EST Pt presents today for right knee pain. Pain 3/10. Pain Anterior and posterior knee radiating down sesay. Standing yesterday cleaning a cast iron skillet then could not put weight on it. Clicking,feeling like it's going to give out. Deines PT. Has a brace but did not work and had injections in knee in the past. Keke Cerrato RN documented in this encounter Plan of Treatment Upcoming Encounters Date Type Department Care Team (Late st Contact Info) Description 12/05/2023 2:00 PM EDT Office Visit Orthopaedics [facility] 132 [place] [address] Yrn Gutierrez MD [address] [place] [address] 12/12/2023 2:00 PM EDT Office Visit Orthopaedics [facility] [address] [place] [address] Yrn Gutierrez MD [address] [place] [address] 12/20/2023 10:45 AM EDT Office Visit Orthopaedics [facility] [address] [place] [address] Yrn Gutierrez MD [address] [place] [address] 12/26/2023 9:30 AM EDT Office Visit Sleep Disorders Ctr [facility] [place] [phone] Kitty Frost CRNP [address] [place] [address] 01/09/2024 9:20 AM EDT Office Visit Family Practice [address] [place] [address] 293 [facility] [place] [address] Anamaria Allison DO 293 [facility] [place] [address] 01/24/2024 10:45 AM EDT Office Visit Orthopaedics [facility] [address] [place] [address] Yrn Gutierrez MD [address] [place] [address] 02/09/2024 2:00 PM EDT Office Visit Cardiology, [facility] [address] [place] [address] Kaden Francis PA-C [address] [place] [address] 03/28/2024 2:40 PM EDT Office Visit Nephrology, [place] [address] [facility] [place] [address] Ethan Gama MD [address] [facility] [place] [address] 04/08/2024 1:40 PM EDT Telemedicine Neurosurgery, [place] [address] [place], [place] [id number] Will Donaldson PA-C [address] [place] [address] 06/05/2024 10:45 AM EDT Office Visit Urology Jayesh Faith [address] [place] [address] [place] [address] Param Haines Jr., MD [address] [place] [address] [place] [address] Health Maintenance Due Date Last Done Comments *BISPHONATE OR OTHER ACCEPTABLE MEDICATION NEEDED FOR OSTEOPOROSIS (REFER TO SMARTSET #1146) 10/01/2022 COVID-19 Vaccine ( season) 2023 08/18/2021, 12/01/2020, 11/10/2020 Albumin/Creatinine Ratio 03/16/2024 023, 05/24/2022, 11/25/2021, Additional history exists CKD HGB USE SMARTSET 55743 03/16/202403/16, 03/16/2023, 05/24/2022, Additional history exists CKD PHOS USE SMARTSET 70935 03/16/2024 07/02/2023, 02/18/2022, 05/06/2021, Additional history exists [...] D LEVEL ONCE IN A LIFETIME-USE SMARTSET# 30481 Completed 03/16/2023, 05/24/2022, 07/02/2020, Additional history exists [...] 2 mL 2 mL, Injection, ONCE, On 10/17/23 at 1445, For 1 dose, Lidocaine 1% 1mL Triamcinolone Acetonide 40 mg/mL 1 mL (Final concentration = 20 mg/mL) REFRIGERATE and SHAKE WELL Given 10/17/2023 2:22 PM EST 2 mL Knee Right documented in this encounter Advance Directives Documents on File Type Date Recorded Patient Buhr Mill Operator Expl anation Advance Directives and Living Will 04/09/2012 LIVING WILL DECLARAT ION - LIVING WILL Latest Code Status on File Code Status Date Activated Date Inactivated Comments Full Code 12/10/2007 8:45 AM 12/10/2007 3:42 PM Care Teams Nailing Machine Operator Relationship Specialty Start Date End Date Anamaria Allison DO [address] [place] [address] PCP - General Family Medicine 10/26/22 documented as of this encounter
--- OUTSIDE RECORDS SUMMARY | 2023-12-23 14:46 | External Medical Summary | Summary of Care ---
Author Name Unknown Organization [facility] Address [address] [place] [address] Phone [phone] Care Team Providers Care Casino Floor Person Name Role Phone Anamaria Allison DO Primary [...] mRNA, LNP-s, No Pre serve, 2-Dose Series ([employer]) 08/18/2021,12/01/2020,11/10/2020 Hepatitis B, 20+ yrs 07/07/1992,02/24/1992,01/21 [...] 10/17/2023 2:00 PM EST Office Visit Orthopaedics [facility] 132 [facility] [address] Yrn Gutierrez MD [address] [place] [address] 12/26/2023 9:30 AM EDT Office Visit Sleep Disorders Ctr [facility] 132 [facility] [place] [address] Kitty Frost CRNP 132 [facility] [place] [address] 01/09/2024 9:20 AM EDT Office Visit Family Practice [address] [place] [address] 293 [place] [address] Anamaria Allison DO 293 [facility] [place] [address] 01/24/2024 10:45 AM EDT Office Visit Orthopaedics [facility] 132 [place] [address] Yrn Gutierrez MD 132 [facility] [place] [address] 02/09/2024 2:00 PM EDT Office Visit Cardiology, [facility] 132 [facility] [address] Kaden Francis PA-C [address] [facility] [place] [address] 03/28/2024 2:40 PM EDT Office Visit Nephrology, Lars Gill [address] [place] [address] Ethan Gama MD [address] [place] [address] 04/08/2024 1:40 PM EDT Telemedicine Neurosurgery, [place] [address] [place] [address] Will Donaldson PA-C [address] [place] [address] 06/05/2024 10:45 AM EDT Office Visit Urology Jayesh Faith [address] [place] [address] [place] [address] Param Haines Jr., MD [address] [place] [address] [place] [address] Health Maintenance Due Date Last Done Comments *BISPHONATE OR OTHER ACCEPTABLE MEDICATION NEEDED FOR OSTEOPOROSIS (REFER TO SMARTSET #1146) 10/01/2022 COVID-19 Vaccine ( season) 2023 08/18/2021, 12/01/2020, 11/10/2020 Albumin/Creatinine Ratio 03/16/2024 023, 05/24/2022, 11/25/2021, Additional history exists CKD HGB USE SMARTSET 70124 03/16/202403/16, 03/16/2023, 05/24/2022, Additional history exists CKD PHOS USE SMARTSET 64164 03/16/2024 07/0 02/2023, 02/18/2022, 05/06/2021, Additional history [...] D LEVEL ONCE IN A LIFETIME-USE SMARTSET# 27097 Completed 03/16/2023, 05/24/2022, 07/02/2020, Additional history exists [...] Documents on File Type Date 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
--- OUTSIDE RECORDS SUMMARY | 2023-12-23 14:46 | External Medical Summary | Summary of Care ---
Author Name Unknown Organization [facility] Address [address] [place] [address] Phone [phone] Care Team Providers Care Contour Stitcher Name Role Phone Anamaria Allison DO Primary [...] mRNA, LNP-s, No Pre serve, 2-Dose Series ([employer] 08/18/2021,12/01/2020,11/10/2020 Hepatitis B, 20+ yrs 07/07/1992,02/24/1992,01/21 PPD [...] Office Visit Orthopaedics [facility] 132 [facility] [place] [address] Yrn Gutierrez MD [address] [place] [address] 12/26/2023 9:30 AM EDT Office Visit Sleep Disorders Ctr [facility] 132 [facility] [place] [address] Kitty Frost CRNP 132 [facility] [place] [address] 01/09/2024 9:20 AM EDT Office Visit Family Practice [address] [place] [address] 293 [place] [address] Anamaria Allison DO 293 [facility] [place] [address] 01/24/2024 10:45 AM EDT Office Visit Orthopaedics [facility] 132 [facility] [place] [address] Yrn Gutierrez MD 132 [place] [address] 02/09/2024 2:00 PM EDT Office Visit Cardiology, [facility] 132 [facility] [place] [address] Kaden Francis PA-C [address] [facility] [place] [address] 03/28/2024 2:40 PM EDT Office Visit Nephrology, Lars Gill [address] [place] [address] Ethan Gama MD [address] [place] [address] 04/08/2024 1:40 PM EDT Telemedicine Neurosurgery, [place] [address] [place] [address] Will Donaldson PA-C [address] [place] [address] 06/05/2024 10:45 AM EDT Office Visit Urology Jayesh Faith [address] [place] [address] [place] [address] Param Haines Jr., MD [address] [place] [address] [place] [address] Health Maintenance Due Date Last Done Comments *BISPHONATE OR OTHER ACCEPTABLE MEDICATION NEEDED FOR OSTEOPOROSIS (REFER TO SMARTSET #1146) 10/01/2022 COVID-19 Vaccine ( season) 2023 08/18/2021, 12/01/2020, 11/10/2020 Albumin/Creatinine Ratio 03/16/2024 023, 05/24/2022, 11/25/2021, Additional history exists CKD HGB USE SMARTSET 13227 03/16/202403/16, 03/16/2023, 05/24/2022, Additional history exists CKD PHOS USE SMARTSET 32495 03/16/2024 07/0 02/2023, 02/18/2022, 05/06/2021, Additional history [...] D LEVEL ONCE IN A LIFETIME-USE SMARTSET# 85315 Completed 03/16/2023, 05/24/2022, 07/02/2020, Additional history exists [...] Documents on File Type Date 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
--- OUTSIDE RECORDS SUMMARY | 2023-12-23 14:46 | External Medical Summary | Summary of Care ---
Author Name Unknown Organization [facility] Address [address] [place] [address] Phone [phone] Care Team Providers Care Placing Judge Name Role Phone Anamaria Allison DO Primary [...] mRNA, LNP-s, No Pre serve, 2-Dose Series ([employer]) 08/18/2021,12/01/2020,11/10/2020 Hepatitis B, 20+ yrs 07/07/1992,02/24/1992,01/21 PPD [...] 2:00 PM EST Office Visit Orthopaedics [facility] 132 [place] [address] Yrn Gutierrez MD [address] [place] [address] 12/26/2023 9:30 AM EDT Office Visit Sleep Disorders Ctr [facility] 132 [facility] [place] [address] Kitty Frost CRNP 132 [facility] [address] 01/09/2024 9:20 AM EDT Office Visit Family Practice [address] [place] [address] 293 [place] [address] Anamaria Allison DO 293 [place] [address] 01/24/2024 10:45 AM EDT Office Visit Orthopaedics [facility] 132 [place] [address] Yrn Gutierrez MD 132 [facility] [place] [address] 02/09/2024 2:00 PM EDT Office Visit Cardiology, [facility] 132 [place] [address] Kaden Francis PA-C [address] [facility] [place] [address] 03/28/2024 2:40 PM EDT Office Visit Nephrology, Lars Gill [address] [place] [address] Ethan Gama MD [address] [place] [address] 04/08/2024 1:40 PM EDT Telemedicine Neurosurgery, [place] [address] [place] [address] Will Donaldson PA-C [address] [place] [address] 06/05/2024 10:45 AM EDT Office Visit Urology Jayesh Faith [address] [place] [address] [place] [address] Param Haines Jr., MD [address] [place] [address] [place] [address] Health Maintenance Due Date Last Done Comments *BISPHONATE OR OTHER ACCEPTABLE MEDICATION NEEDED FOR OSTEOPOROSIS (REFER TO SMARTSET #1146) 10/01/2022 COVID-19 Vaccine ( season) 2023 08/18/2021, 12/01/2020, 11/10/2020 Albumin/Creatinine Ratio 03/16/2024 023, 05/24/2022, 11/25/2021, Additional history exists CKD HGB USE SMARTSET 56735 03/16/202403/16, 03/16/2023, 05/24/2022, Additional history exists CKD PHOS USE SMARTSET 33896 03/16/2024 07/0 02/2023, 02/18/2022, 05/06/2021, Additional history [...] D LEVEL ONCE IN A LIFETIME-USE SMARTSET# 32418 Completed 03/16/2023, 05/24/2022, 07/02/2020, Additional history exists [...] Documents on File Type Date Recorded Patient Patient Access Representative Expl anation Advance Directives and Living Will 04/09/2012 LIVING WILL DECLARAT ION - LIVING WILL Latest Code Status on File Code Status Date Activated Date Inactivated Comments Full Code 12/10/2007 8:45 AM 12/10/2007 3:42 PM Care Teams Placing Judge Relationship Specialty Start Date End Date Anamaria Allison DO 293 [place] [address] PCP - General Family Medicine 10/26/22 documented as of this encounter
--- OUTSIDE RECORDS SUMMARY | 2023-12-23 14:47 | External Medical Summary | Summary of Care ---
Author Name Unknown Organization [facility] Address [address] [place] [address] Phone [phone] Care Team Providers Care Insulation Batting Machine Operator Name Role Phone Anamaria Allison DO Primary Care Provider [phone] Reason for Visit * Reason Onset Date Comments Advice 08/24/2023 appointment Encounter Details Date Type Department Care Team (Late st Contact Info) Description 08/24/2023 Telephone Family Practice [address] [facility] 293 [place] [address] Anamaria Allison DO 293 [place] [address] Advice (appointment) Allergies Active Allergy Reactions Criticality Noted Date Comments Edgar Inhibitors Cough 12/30/2011 Sulfa Antibiotics Unknown 01/03/2019 documented as of this encounter (statuses as of 08/24/2023) Medications Medication Sig Dispensed Refills Start Date [...] when active 1 Each 0 02/13/2023 Active Fluticasone-Umeclidi n-Vilant 100-62.5-25 MCG/ACT Aerosol Powder Breath Activated (Trelegy Ellipta)Indications: Moderate persistent asthma without complication INHALE ONE PUFF BY MOUTH EVERY MORNING 180 Each 3 10/06/2022 4 Active Levothyroxine Sodium 137 MCG Oral TabletIndications:Hy [...] FOR DIZZINESS 90 Tablet 5 07/24/2023 Active Betamethasone Dipropionate 0.05 % External Cream (Diprosone)Indicatio ns:Psoriasis Apply topically to affected area 2 times a day. To affected area. 45 g 1 07/27/2023 Active Hospital, Clinic, or Other Facility Administered Medication Ordered Dose Route Frequency Start Date End Date Status albuterol (PROVENTIL HFA) inhaler 4 PuffIndications:Obstruc tive sleep apnea syndrome,Simple chronic bronchitis (HCC) 4 Puff IN Q4H PRN 05/30/2017 Active Albuterol Sulfate (Proventil) (2.5 MG/3ML) 0.083% inhalation solution 2.5 mgIndications:Moderate persistent asthma without complication 2.5 mg NEBULIZER PRN 10/04/2022 10/04/2023 Acti ve Albuterol Sulfate (Proventil) (5 MG/ML) 0.5% *conc* inhalation solution 2.5 mgIndications:Moderate persistent asthma without complication 2.5 mg NEBULIZER PRN 10/04/2022 10/04/2023 Acti ve documented as of this encounter (statuses as of 08/24/2023) Active Problems Problem Noted Date Diagnosed Date Hypertensive heart and kidne y disease without [...] as of this encounter (statuses as of 08/24/2023) Resolved Problems Problem Noted Date Diagnosed Date [...] 04/10/2007 Overview: ICD-10 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 * Telephone Encounter - Denise Torre LPN - 08/24/2023 12:57 PM EST Patient with uri symptoms for two weeks. Advised to go to convenient care today. Patient is aware and will comply. Thank you * Telephone Encounter - Alicia Palomino OSA - 08/24/2023 8:22 AM EST Has a cold for couple weeks does a lot of coughing Brings up white phlegm plentiful, sneezes a lot Not sure what to do Please advise documented in this encounter Plan of Treatment Upcoming Encounters Date Type Department Care Team (Late st Contact Info) Description 09/25/2023 10:30 AM EST Office Visit Orthopaedics [facility] [address] [place] [address] Yrn Gutierrez MD [address] [place] [address] 10/02/2023 11:20 AM EST Office Visit Family Practice [address] [place] [address] 293 [facility] [place] [address] Anamaria Allison DO 293 [place] [address] 02/09/2024 2:00 PM EDT Office Visit Cardiology, [facility] 132 [facility] [address] Kaden Francis PA-C 132 [place] [address] 03/28/2024 2:40 PM EDT Office Visit Nephrology, [facility] 200 [facility] [place] [address] Ethan Gama MD 200 [place] [address] 04/08/2024 1:40 PM EDT Telemedicine Neurosurgery, [place] [address] [place] [address] Will Donaldson PA-C [address] [place], [place] [address] 06/05/2024 10:45 AM EDT Office Visit Urology Jayesh Faith [address] [place] [address] [place] [address] Param Haines Jr., MD [address] [place] [address] [place] [address] Health Maintenance Due Date Last Done Comments *BISPHONATE OR OTHER ACCEPTABLE MEDICATION NEEDED FOR OSTEOPOROSIS (REFER TO SMARTSET #1146) 10/01/2022 COVID-19 Vaccine ( season) 2023 08/18/2021, 12/01/2020, 11/10/2020 Albumin/Creatinine Ratio 03/16/2024 023, 05/24/2022, 11/25/2021, Additional history exists CKD HGB USE SMARTSET 27394 03/16/202403/16, 03/16/2023, 05/24/2022, Additional history exists CKD PHOS USE SMARTSET 84479 03/16/2024 07/0 02/2023, 02/18/2022, 05/06/2021, Additional history exists TSH 03/16/2024 03/16/2023, 02/09, 11/25/2021, Additional history exists Depression Screening 07/27/2024 07/27/2023 O2 ASSESSMENT COMPLETED IN PAST YEAR FOR COPD 07/27/2024 07/27/2023 DTaP,Tdap,and Td Vaccines (3 - Td or Tdap) 05/04/2032 05/04/2022, 12/05/2011, 04/06/1999, Additional history exists Hepatitis B Completed 07/07/1992, 06/12, 02/24/1992, Additional history exists Pneumococcal Vaccine: 65+ Years Completed 01/27/2015, 06/02/2010, 11/27/2001 DXA Scan Discontinued 11/23/2015, 04/11, 04/26/2007, Additional history exists Zoster Vaccines Completed 07/01/2020, 04/11, 06/06/2012 Alpha-1 Antitrypsin Completed 05/24/2022 VITAMIN D LEVEL ONCE IN A LIFETIME-USE SMARTSET# 83672 Completed 03/16/2023, 05/24/2022, 07/02/2020, Additional history exists [...] Documents on File Type Date Recorded 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
--- OUTSIDE RECORDS SUMMARY | 2023-12-23 14:47 | External Medical Summary | Summary of Care ---
Author Name Unknown Organization [facility] Address [address] [place] [address] Phone [phone] Care Team Providers Care Secretary Of State Name Role Phone Anamaria Allison DO Primary Care Provider Reason for Visit * Reason Comments Follow Up Left shoulder Encounter Details Date Type Department Care Team (Late st Contact Info) Description 09/25/2023 10:30 AM EST Office Visit Orthopaedics [facility] 132 [facility] [place] [address] Yrn Gutierrez MD [address] [facility] [place] [address] Rotator cuff arthropathy of left shoulder* Allergies Active Allergy Reactions Criticality Noted Date Comments Edgar Inhibitors Cough 12/30/2011 Sulfa Antibiotics Unknown 01/03/2019 documented as of this encounter (statuses as of 09/25/2023) Medications Medication Sig Dispensed Refills Start Date [...] affected area. 45 g 1 07/27/2023 Active Fluticasone-Umeclidi n-Vilant 100-62.5-25 MCG/ACT Aerosol Powder Breath Activated (Trelegy Ellipta)Indications: Moderate persistent asthma without complication Inhale 1 Puff by mouth in the morning. 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 I saw him originally for this on 06/23/2021 Most recent complete visit 05/26/2023 History: Level of pain: reviewed and agree with Nursing Notes for HPI elements History on 06/23/2021 - Pt presents today for ongoing L shoulder pain. XR 05/31/2021. Also has decreased motion. No recent injury. No paresthesias. No treatments. Additional history 02/15/2022 Did receive benefit from ultrasound-guided subacromial steroid bursa the injection performed on 06/23/2021. Desires repeat injections Additional history 08/16/2022: Pt presents today for left shoulder pain. Rates pain 5/10. Pain radiates down arm. Pt states can't lift arm without assistance of other arm. Having difficulty reaching also with left arm. No injury. Last ultrasound-guided subacromial steroid bursa the injection performed on 02/15/22 states little relief Additional history 08/29/2022: No change in symptoms MRI was obtained it is described below Additional history on 10/11/2022: seen most recently for procedure only visit on 09/20/2022, which was an ultrasound guided glenohumeral joint steroid inject. He reports significant improvement in symptoms following that injection. He is able to get dressed better, better able to shower and shampoo his hair. He is pleased. Additional history on 05/26/2023: Seen on 01/20/2023 for repeat glenohumeral joint steroid injection. Reports he got significant benefit from that. Since that visit: Reports she got significant benefit for least 3 months from that injection. Would like a repeat. ROS: ROS per HPI otherwise non-contributory Past [...] hx of skin ca Heart Disorder Brother MA AGE 60 73 [place] 99 Gastro-intestinal disorder Brother AGE 75 [place] 99 HIATAL HERNIA Endocrine Disorder Sister ELEV CHOL Social History Socioeconomic History Marital status: Spouse name: JUSTINE Number of children: 2 Years of education: 12 Highest education level: Not on file Occupational History Occupation: RETIRED Comment: 02/09/1998 Social Needs Financial resource strain: Not on file Food insecurity Worry: Never true Inability: Never true Transportation needs Medical: Not on file Non-medical: Not on file Tobacco Use Smoking status: Never Smoker Smokeless tobacco: Never Used Substance and Sexual Activity Alcohol use: No Drug use: No Sexual activity: Yes Partners: Female Lifestyle Physical activity Days per week: Not on file Minutes per session: Not on file Stress: Not on file Relationships Social connections Talks on phone: Not on file Gets together: Not on file Attends jewish service: Not on file Active member of club or organization: Not on file Attends meetings of clubs or organizations: Not on file Relationship status: Not on file Intimate partner violence Fear of current or ex partner: Not on file Emotionally abused: Not on file Physically abused: Not on file Forced sexual activity: Not on file Other Topics Concern Service No Blood Transfusions No Caffeine Concern No Occupational Exposure No Hobby Hazards Yes Comment: WOODWORKING Sleep Concern Yes Comment: VARIABLE Stress Concern No Weight Concern No Special Diet Not Asked Back Care Yes Comment: DR BARROSO,CHIRO OCC Exercise No Bike Helmet Not Asked Seat Belt Yes Self-Exams Not Asked Social History Narrative 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 Complete supraspinatus tendon tear and near-complete subscapularis tendon tear, with moderate fatty atrophy of their corresponding muscle bellies. 2. High-grade intra-articular long head biceps tendon tear, with few (if any) tendon fibers remaining intact. 3. Infraspinatus tendinopathy. 4. Posterosuperior labral tear. 5. 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 Os acromiale 05/31/2021: Four view x-ray left shoulder FINDINGS No evidence of a fracture. The glenohumeral joint is aligned; there is superior positioning of the humeral head with narrowing of the acromiohumeral interval, suggesting underlying rotator cuff pathology. Mild acromioclavicular joint osteoarthritis. Imaged parts of the left lung are clear. IMPRESSION 1. No acute osseous abnormality. 2. Findings suggestive of rotator cuff pathology. 3. Mild AC joint osteoarthritis. Assessment and Plan: 1) chronic left shoulder MRI findings as above Given atrophy and moderate DJD do not think he would be a candidate for rotator cuff repair. At some point could be a candidate for reverse replacement, however arthritis moderate at this point basedon MRI. Patient also locked in to consider surgery but has not completely ruled out. I performed a subacromial bursa injection with ultrasound guidance for him on 02/15/2022. several minutes after the steroid injection was performed with ultrasound guidance he reported significant improvement in his pain upon re- evaluation. However the benefit was short-lived. I performed an ultrasound guided glenohumeral joint steroid injection on 09/20/2022, 01/20/2023 and 05/26/2023 He reports significant improvement in symptoms following those injections. He is able to get dressed better, better able to shower and shampoo his hair. He is pleased. Intra-articular glenohumeral joint steroid injection repeated today 09/25/2023 with ultrasound guidance Note most recent x-rays from over 2years ago on most recent imaging was an MRI from over a year agoas of today's visit 09/25/2023. Given he continues to have substantial benefit for steroid injections I do not think these have to be repeated at this time. However if he begins to have less significant response then I would recommend updating imaging Previously we discussed physical therapy as an option again, however, he did attend therapy for approximately 3 sessions and made it worse she strongly desires not to return. He also does not desire surgical consultation yet He is aware these can be done every 3-4 months and we could have additional options form it does not last that long. He will follow-up p.r.n. Procedure note (shoulder glenohumoral joint injection) on left: Time out: Prior to injection, a time out was called to confirm the administration of appropriate medicine, patient name, procedure and confirm to the best of our ability and knowledge the presence of any necessary risks and benefits. Patient verbalizes understanding. Ultrasound utilized to guide injection Ultrasound required due to: need to visualize specific joint recess Sterile techinique applied. Skin sterilized with betadine and cleaned with alcohol swab. Glenohumoral joint injected using 3.5 inch, 22 gauge needle. Injected with 1 [...] treated with ice and resolve within 24 hours Yrn Gutierrez MD Primary Care Sports Medicine [facility] [address] documented in this encounter Nursing Notes * Keke Cerrato, RN - 09/25/2023 10:36 AM EST Pt presents today for f/u on left should injection given on 05/26/23. Pain today 5/10. Injection took a few weeks to work and last up until 3 weeks ago. A1c= 5.6 on 06/22/23 Keke Cerrato RN documented in this encounter Plan of Treatment Upcoming Encounters Date Type Department Care Team (Late st Contact Info) Description 10/06/2023 3:40 PM EST Office Visit Family Practice [address] [place] [address], [place] 293 [facility] [place] [address] Anamaria Allison DO [address] [place] [address] 12/26/2023 9:30 AM EDT Office Visit Sleep Disorders Ctr [facility] 132 [facility] [place] [phone] Kitty Frost CRNP 132 [facility] [address] 01/24/2024 10:45 AM EDT Office Visit Orthopaedics [facility] [address] [place] [address] Yrn Gutierrez MD [address] [facility] [address] 02/09/2024 2:00 PM EDT Office Visit Cardiology, [facility] 132 [facility] [place] [address] Kaden Francis PA-C 132 [place] [address] 03/28/2024 2:40 PM EDT Office Visit Nephrology, [facility] 200 [facility] [place] [address] Ethan Gama MD 200 [facility] [place] [address] 04/08/2024 1:40 PM EDT Telemedicine Neurosurgery, [place] [address] [place] [address] Will Donaldson PA-C [address] [place], [place] [id number] 06/05/2024 10:45 AM EDT Office Visit Urology Jayesh Faith [address] [place] [address] [place] [address] Param Haines Jr., MD [address] [place] [address] [place] [address] Scheduled Orders Name Type Priority Associated Diagnoses Orde r Schedule POINT OF CARE US MAJOR JOINT INJECTION, ORTHO Medical Imaging Routine Rotator cuff arthropathy of left shoulder Ordered: 09/25/2023 Health Maintenance Due Date Last Done Comments *BISPHONATE OR OTHER ACCEPTABLE MEDICATION NEEDED FOR OSTEOPOROSIS (REFER TO SMARTSET #1146) 10/01/2022 COVID-19 Vaccine ( season) 2023 08/18/2021, 12/01/2020, 11/10/2020 Albumin/Creatinine Ratio 03/16/2024 023, 05/24/2022, 11/25/2021, Additional history exists CKD HGB USE SMARTSET 02189 03/16/202403/16, 03/16/2023, 05/24/2022, Additional history exists CKD PHOS USE SMARTSET 18353 03/16/2024 07/0 02/2023, 02/18/2022, 05/06/2021, Additional history exists TSH 03/16/2024 03/16/2023, 02/09, 11/25/2021, Additional history exists Depression Screening 07/27/2024 07/27/2023 O2 ASSESSMENT COMPLETED IN PAST YEAR FOR COPD 08/24/2024 08/24/2023 DTaP,Tdap,and Td Vaccines (3 - Td or Tdap) 05/04/2032 05/04/2022, 12/05/2011, 04/06/1999, Additional history exists Hepatitis B Completed 07/07/1992, 06/12, 02/24/1992, Additional history exists Pneumococcal Vaccine: 65+ Years Completed 01/27/2015, 06/02/2010, 11/27/2001 DXA Scan Discontinued 11/23/2015, 04/11, 04/26/2007, Additional history exists Zoster Vaccines Completed 07/01/2020, 04/11, 06/06/2012 Alpha-1 Antitrypsin Completed 05/24/2022 VITAMIN D LEVEL ONCE IN A LIFETIME-USE SMARTSET# 28639 Completed 03/16/2023, 05/24/2022, 07/02/2020, Additional history exists [...] as of this encounter Visit Diagnoses Diagnosis Rotator cuff arthropathy of left shoulder- Primary documented in this encounter Advance Directives Documents on File Type Date 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
--- OUTSIDE RECORDS SUMMARY | 2023-12-23 14:47 | External Medical Summary | Summary of Care ---
Author Name Unknown Organization [facility] Address [address] [place] [address] Phone [phone] Care Team Providers Care Drapery Maker Name Role Phone Anamaria Allison DO Primary Care Provider Reason for Visit * Reason Comments Medication Refill Encounter Details Date Type Department Care Team (Late st Contact Info) Description 09/21/2023 Refill Pulmonary Medicine Jayesh Foster [address] [place] [phone] Rhonda Suarez CRNP Moderate persistent asthma without complication Allergies Active Allergy Reactions Criticality Noted Date Comments Edgar Inhibitors Cough 12/30/2011 Sulfa Antibiotics Unknown 01/03/2019 documented as of this encounter (statuses as of 09/21/2023) Medications Medication Sig Dispensed Refills Start Date [...] as of this encounter (statuses as of 09/21/2023) Active Problems Problem Noted Date Diagnosed Date [...] as of this encounter (statuses as of 09/21/2023) Resolved Problems Problem Noted Date Diagnosed Date [...] Overview: 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 08/11/2005 [...] as of this encounter (statuses as of 09/21/2023) Immunizations Name Administration Dates Next Due COVID-19 mRNA, LNP-s, No Pre serve, 2-Dose Series ([employer]) 08/18/2021,12/01/2020,11/10/2020 Hepatitis B, 20+ yrs 07/07/1992,02/24/1992,01/21 PPD [...] encounter Miscellaneous Notes * Telephone Encounter - Mayuri Galindo LPN - 09/21/2023 3:23 PM ESTRefused Prescriptions: Disp Refills Trelegy Ellipta 100-62.5-25 MCG/ACT Aeroso*180 Ea*3 Sig: INHALEONE PUFF BY MOUTH EVERY MORNINGRefused By: MAYURI GALINDO LReason for Refusal: Duplicate Request------- documented in this encounter Plan of Treatment Upcoming Encounters Date Type Department Care Team (Late st Contact Info) Description 09/25/2023 10:30 AM EST Office Visit Orthopaedics [facility] [address] [place] [address] Yrn Gutierrez MD [address] [place] [address] 10/06/2023 3:40 PM EST Office Visit Family Practice [address] [place] [address] 293 [facility] [address] Anamaria Allison DO 293 [facility] [place] [address] 12/26/2023 9:30 AM EDT Office Visit Sleep Disorders Ctr [facility] 132 [facility] [place] [phone] Kitty Frost CRNP 132 [facility] [place] [address] 02/09/2024 2:00 PM EDT Office Visit Cardiology, [facility] 132 [facility] [place] [address] Kaden Francis PA-C 132 [facility] [place] [address] 03/28/2024 2:40 PM EDT Office Visit Nephrology, [facility] 200 [facility] [place] [address] Ethan Gama MD 200 [facility] [place] [address] 04/08/2024 1:40 PM EDT Telemedicine Neurosurgery, [place] [address] [place], [place] [phone] Will Donaldson PA-C [address] [place], [place] [phone] 06/05/2024 10:45 AM EDT Office Visit Urology Jayesh Faith [address] [place] [address] [place] [address] Param Haines Jr., MD [address] [place] [address] [place] [address] Health Maintenance Due Date Last Done Comments *BISPHONATE OR OTHER ACCEPTABLE MEDICATION NEEDED FOR OSTEOPOROSIS (REFER TO SMARTSET #1146) 10/01/2022 COVID-19 Vaccine ( season) 2023 08/18/2021, 12/01/2020, 11/10/2020 Albumin/Creatinine Ratio 03/16/2024 023, 05/24/2022, 11/25/2021, Additional history exists CKD HGB USE SMARTSET 68987 03/16/202403/16, 03/16/2023, 05/24/2022, Additional history exists CKD PHOS USE SMARTSET 98118 03/16/2024 07/0 02/2023, 02/18/2022, 05/06/2021, Additional history [...] D LEVEL ONCE IN A LIFETIME-USE SMARTSET# 30543 Completed 03/16/2023, 05/24/2022, 07/02/2020, Additional history exists [...] as of this encounter Visit Diagnoses Diagnosis Moderate persistent asthma without complication Unspecified asthma documented in this encounter Advance Directives Documents on File Type Date Recorded 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
--- OUTSIDE RECORDS SUMMARY | 2023-12-23 14:47 | External Medical Summary | Summary of Care ---
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 [...] mRNA, LNP-s, No Pre serve, 2-Dose Series ([employer]) 08/18/2021,12/01/2020,11/10/2020 Hepatitis B, 20+ yrs 07/07/1992,02/24/1992,01/21 PPD [...] 3:40 PM EST Office Visit Family Practice [address], [place] 293 [place] [address] Anamaria Allison DO 293 [place] [address] 12/26/2023 9:30 AM EDT Office Visit Sleep Disorders Ctr [facility] 132 [facility] [place] [phone] Kitty Frost CRNP 132 [facility] [address] 01/24/2024 10:45 AM EDT Office Visit Orthopaedics [facility] 132 [facility] [place] [address] Yrn Gutierrez MD 132 [facility] [place] [address] 02/09/2024 2:00 PM EDT Office Visit Cardiology, [facility] 132 [facility] [place] [address] Kaden Francis PA-C 132 [facility] [place] [address] 03/28/2024 2:40 PM EDT Office Visit Nephrology, [place] [address] [place] [address] Ethan Gama MD [address] [place] [address] 04/08/2024 1:40 PM EDT Telemedicine Neurosurgery, [place] [address] [place] [address] Will Donaldson PA-C [address] [place] [address] 06/05/2024 10:45 AM EDT Office Visit Urology Jayesh Faith [address] [place] [address] [place] [address] Param Haines Jr., MD [address] [place] [address] [place] [address] Health Maintenance Due Date Last Done Comments *BISPHONATE OR OTHER ACCEPTABLE MEDICATION NEEDED FOR OSTEOPOROSIS (REFER TO SMARTSET #1146) 10/01/2022 COVID-19 Vaccine ( season) 2023 08/18/2021, 12/01/2020, 11/10/2020 Albumin/Creatinine Ratio 03/16/2024 023, 05/24/2022, 11/25/2021, Additional history exists CKD HGB USE SMARTSET 54132 03/16/202403/16, 03/16/2023, 05/24/2022, Additional history exists CKD PHOS USE SMARTSET 50549 03/16/2024 07/0 02/2023, 02/18/2022, 05/06/2021, Additional history [...] D LEVEL ONCE IN A LIFETIME-USE SMARTSET# 40952 Completed 03/16/2023, 05/24/2022, 07/02/2020, Additional history exists [...] Documents on File Type Date 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
--- OUTSIDE RECORDS SUMMARY | 2023-12-23 14:47 | External Medical Summary | Summary of Care ---
Author Name Unknown Organization [facility] Address [address] [place] [address] Phone [phone] Care Team Providers Care Optical Effects Layout Person Name Role Phone Anamaria Allison DO Primary Care Provider Reason for Visit * Reason Comments Follow Up Left shoulder Encounter Details Date Type Department Care Team (Late st Contact Info) Description 09/25/2023 10:30 AM EST Office Visit Orthopaedics [facility] [address] [facility] [place] [address] Yrn Gutierrez MD [address] [facility] [place] [address] Rotator cuff arthropathy of left shoulder* Allergies [...] shoulder 2 mL IJ ONCE 09/25/2023 09/25/2023 Ended documented as of this encounter (statuses [...] Overview: 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 [...] mRNA, LNP-s, No Pre serve, 2-Dose Series ([place] A/S) 08/18/2021,12/01/2020,11/10/2020 Diptheria/Tetanus (Adult) 04/06/1999,05/12/1989 Hepatitis B Vaccine [...] - 09/25/2023 10:23 AM EST Armani Woods [id number] Armani Woods is a 86 year old male who presents for f/u to [facility] for left shoulder [...] hx of skin ca Heart Disorder Brother [place] AGE 60 73 [place] 99 Gastro-intestinal disorder [...] file Gets together: Not on file Attends christian service: Not on file Active member of [...] Not Asked Social History Narrative 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 Vaping/E-Cigarette Use Vaping/E-Cigarette Use [...] Yrn Gutierrez MD Primary Care Sports Medicine ising Orthopa[facility] [address] [facility] [address] documented in this encounter Nursing Notes * [...] EST Office Visit Family Practice [address] [place] [address] [place] [phone] [facility]ison [facility] [address] 12/26/2023 9:30 AM EDT Office Visit [facility] Disorders [facility] [address] [place] [phone] Kitty Frost CRNP [address] [facility] [place] [address] 01/24/2024 10:45 AM EDT Office Visit Orthopaedics [facility] [address] [facility] [place] [address] Yrn Gutierrez MD [address] [facility] [place] [address] 02/09/2024 2:00 PM EDT Office Visit Cardiology, [facility] [address] [facility] [place] [address] K[facility]C [facility] [address] 03/28/2024 2:40 PM EDT Office Visit Nephrology, [facility] [address] [facility] [place] [address] Ethan Gama MD [address] [facility] [place] [address] 04/08/2024 1:40 PM EDT Telemedicine Neurosurgery, [place] [address] [place] [address] Will Donaldson PA-C [address] [place], [place] [phone] 06/05/2024 10:45 AM EDT Office Visit Urology Jayesh Faith [address] [place] [address] [place] [address] Yancy Chen, Param Lemons MD [address] [place] [address] [place] [address] Scheduled Orders Name Type Priority Associated Diagnoses [...] Additional history exists CKD HGB USE SMARTSET 47751 03/16/202403/16, 03/16/2023, 05/24/2022, Additional history exists CKD PHOS USE SMARTSET 30059 03/16/2024 07/02/2023, 02/18/2022, 05/06/2021, Additional history exists [...] D LEVEL ONCE IN A LIFETIME-USE SMARTSET# [id number] Completed 03/16/2023, 05/24/2022, 07/02/2020, Additional history exists [...] left shoulder- Primary documented in this encounter Administered Medications Inactive Administered Medications - up to 3 most recent administrations Medication Order MAR Action Action Date Dose Rate Site lidocaine 1% 1 mL - triamcinolone acetonide 40 mg/mL 1 mL inj 2 mL 2 mL, Injection, ONCE, On 09/25/23 at 1130, For 1 dose, Lidocaine 1% 1mL Triamcinolone Acetonide 40 mg/mL 1 mL (Final concentration = 20 mg/mL) REFRIGERATE and SHAKE WELL Given 09/25/2023 12:14 PM EST 2 mL Shoulder Left documented in this encounter Advance Directives Documents on File Type Date Recorded 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
--- OUTSIDE RECORDS SUMMARY | 2023-12-23 14:47 | External Medical Summary | Summary of Care ---
Author Name Unknown Organization [facility] Address [address] [place] [address] Phone [phone] Care Team Providers Care Child Psychiatrist Name Role Phone Anamaria Allison DO Primary Care Provider Reason for Visit * Reason Comments Follow Up Encounter Details Date Type Department Care Team (Latest Contact Info) Description 10/06/2023 3:40 PM EST Office Visit Family Practice [facility] [address] [place] [address] Anamaria Allison DO [address] [place] [address] Psoriatic arthropathy (HCC)*; Psoriasis; HTN, goal below 150/90; Hypothyroidism due to medication; COPD, group B, by GOLD 2017 classification (HCC); Typical atrial flutter (HCC); Vestibular schwannoma (HCC); 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); Stage 3a chronic kidney disease (HCC); NE (generalized anxiety disorder); Hyperparathyroidism, secondary renal (HCC); Age-related osteoporosis without current pathological fracture; Risk and functional assessment Allergies Active Allergy Reactions Criticality Noted Date Comments Edgar Inhibitors Cough 12/30/2011 Sulfa Antibiotics Unknown 01/03/2019 documented as of this encounter (statuses as of 10/09/2023) Medications Medication Sig Dispensed Refills Start Date [...] Active Meclizine HCl 25 MG Oral Tablet (Antivert)Indicatio ns:Vertigo TAKE ONE TABLET BY MOUTH THREE TIMES A DAY NEEDED FOR DIZZINESS 90 Tablet 5 07/24/2023 Active Fluticasone-Umeclid in-Vilant 100-62.5-25 MCG/ACT Aerosol Powder Breath Activated (Trelegy Ellipta)Indications :Moderate persistent asthma without complication Inhale 1 Puff by mouth in the morning. 180 Each 3 09/26/2023 Active Betamethasone Dipropionate 0.05 % External Cream (Diprosone)Indicati ons:Psoriasis Apply topically to affected area 2 times a day 90 g 1 10/06/2023 Active Betamethasone Dipropionate 0.05 % External Cream (Diprosone)Indicati ons:Psoriasis Apply topically to affected area 2 times a day. To affected area. 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 Overview: Grave's Disease, TSI was elevated documented as of this encounter (statuses as of 10/09/2023) Immunizations Name Administration Dates Next Due COVID-19 mRNA, LNP-s, No Pre serve, 2-Dose Series ([employer]) 08/18/2021,12/01/2020,11/10/2020 Hepatitis B, 20+ yrs 07/07/1992,02/24/1992,01/21 PPD [...] Sign Reading Time Taken Comments Blood Pressure 140/64 10/06/2023 3:59 PM EST Pulse 78 10/06/2023 3:59 PM EST Temperature 36.7 C (98.1 F) 10/06/2023 3:59 PM ES T Respiratory Rate - - Oxygen Saturation 97% 10/06/2023 3:59 PM EST Inhaled Oxygen Concentration - - Weight 80.9 kg (178 lb 6.4 oz) 10/06/2023 3:59 P M EST Height 170.2 cm (5' 7") 10/06/2023 3:59 PM EST Body Mass Index 27.94 10/06/2023 3:59 PM EST documented in this encounter Patient Instructions * Patient Instructions* Denise Bhatt RN - 10/06/2023 3:52 PM EST Patient Instructions - Fall Prevention (This education is for all patients over 65 regardless of symptoms) Remember to take your current medications as prescribed. In order to prevent falls, you are encouraged to: Exercise Utilize assistive/adaptive devices Avoid multifocal lenses when walking Avoid hazards in home Maintain a regular toileting schedule Any questions please contact our office. Preventing Falls in the Home (This education is for all patients over 65 regardless of symptoms) As you get older, falls are more likely. Thats because your reaction time slows. Your muscles and joints may also get stiffer, making them less flexible. Illness, medications, and vision changes can also affect your balance. A fall could leave you unable to live on your own. To make your home safer, follow these tips: Floors Put nonskid pads under area rugs Remove throw rugs Replace worn floor coverings Tack carpets firmly to each step on carpeted stairs. Put nonskid strips on the edges of uncarpeted stairs Keep floors and stairs free of clutter and cords Arrange furniture so there are clear pathways Clean up any spills right away Bathrooms Install grab bars in the tub or shower Apply nonskid strips or put a nonskid rubber mat in the tub or shower Sit on a bath chair to bathe Use bathmats with nonskid backing Lighting Keep a flashlight in each room Put a nightlight along the pathway between the bedroom and the bathroom [employer] Patient Education Copyright 2008 - 2010 [employer] except where otherwise noted Preventing Falls: Exercises to Improve Balance, Flexibility, Strength, and Staying Power (This education is for all patients over 65 regardless of symptoms) Certain types of exercises may help make you less likely to fall. Try the ones below. Or do other exercises that your healthcare provider suggests. Depending on your health, you may need to start slowly. Dont let that stop you. Even small amounts of exercise can help you. Be sure to talk to yourhealthcare provider before starting any exercise program. Improve Balance Many types of exercise can help improve balance. Cullen chi and yoga are good examples. Heres another one to try. You can do it anytime and almost anywhere. Stand next to a counter or solid support. Push yourself up onto your tiptoes. Hold for 5 seconds. If you start to lose your balance, hold on to the counter. Rest and repeat 5 times. Work up to holding for 20 to 30 seconds, if you can. Increase Flexibility Being more flexible makes it easier for you to move around safely. Try exercises like the seated hamstring stretch. Sit in a chair and put one foot on a stool. Straighten your leg and reach with both hands down either side of your leg. Reach as far down your leg as you can. Hold for about 20 seconds. Go back to the starting position. Then repeat 5 times. Switch legs. Build Strength Resistance exercises help build strength. You can do them without equipment. Or you can use weights, elastic bands, or special machines. One such exercise is called the biceps curl. You can hold a 1 pound weight or even a can of soup. Do this exercise at least 3 times a week. Strive for everyday. Sit up straight in a chair. Keep your elbow close to your body and your wrist straight. Bend your arm, moving your hand up to your shoulder. Then slowly lower your arm. Repeat 5 times. Switch to the other arm. Build Your Staying Power Aerobic exercises make your heart and lungs stronger so you can keep moving longer. Walking and swimming are two of the best types of exercises you can do. Using a stationary bike is great, too. Find an aerobic exercise that you enjoy. Start slowly and build up. Even 5 minutes is helpful. Aimfor a goal of 30 minutes, at least 3 times a week. You dont have to do 30 minutes in one session. Break it up and walk a little throughout the day. More Helpful Tips Start easy. Slowly work up to doing more. Talk with your healthcare provider about the best exercises for you. Call senior centers or health clubs about exercise programs. If needed, have a family member watch you walk every so often to check your stability. Exercise with a friend. Choose an activity you both enjoy. Try exercises that you can do anytime, anywhere. Here are two examples. Have someone with you when you first try these: Practice walking by placing one foot right in front of the other. Stand up and sit down 10 times. Repeat this throughout the day. [employer] Patient Education Copyright 2009 - 2010 Lizzy except where otherwise noted. Preventing Falls: Moving Safely Using a Cane or Walker (This education is for all patients over 65 regardless of symptoms) Keep the cane away from your feet so you dont trip. A walking aid, such as a cane or walker, can help you stay more independent and avoid falls. Remember to keep your walking aid within easy reach when youre in a chair or in bed. And learn how to use it safely so you dont injure yourself. Using a Cane If you have a stronger side, hold the cane on that side. Get your balance. Move the cane and your weaker leg forward. Support your weight on both the cane and your weaker side. Step with your stronger leg. Start again from step 1. If youre using a folding walker, be sure you know how to lock it open. Check that its locked open before each use. Using a Walker Roll the walker (or lift it, if youre using one without wheels) forward about 12 inches. Step forward with your weaker leg first. Use the walker to help keep your balance. Bring your other foot forward to the center of the walker. Start again from step 1. Helpful Tips Check with your healthcare provider about the right walking aid to use. Ask about a walker with a seat attached. Check the tips of your cane or walker to make sure they have nonskid covers. Move slowly from room to room. Dont kirby. Sit down to get dressed. Use a jerardo pack or backpack to keep your hands free. Get help for jobs that mean climbing, even on a stepstool. [employer] Patient Education Copyright 2008 - 2010 [employer] except where otherwise noted. Treating Urinary Incontinence in Men (This education is for all patients over 65 regardless of symptoms) You can't always control the release of urine. You may leak urine. Or you may not be able to hold your urine until you can get to a bathroom. This is called urinary incontinence. The problem can be managed. Talk to your doctor about your treatment options. Taking Medications Prescription medications may help you. They may: Help the sphincter to work better. (This is the muscle that closes to keep urine from leaking out of the bladder.) Help stop the bladder from mahamed too often to push urine out. Help the bladder muscles contract with more force. Help relax the sphincter muscle and allow urine to flow more freely. Making Changes to Your Routine Certain changes in your daily routine may help. These include: Avoiding caffeine and alcohol. Using timed voiding. This is following a schedule for drinking fluids and urinating. Doing Kegel exercises daily. These exercises involve tightening the muscles in your sphincter and around your bladder to help strengthen them. Your doctor can explain how to do them. Using a Catheter A catheter is a narrow tube that is inserted through the urethra into the bladder. It drains urine.A condom catheter covers the penis. It channels urine into a collection bag. It is worn most of thetime. Intermittent catheterization means inserting a catheter to drain the bladder, then removing it. This is done on a regular schedule. Having Surgery If other options don't work, surgery may be recommended. If surgery is an option, your healthcare provider can discuss it with you and explain its risks and benefits. Healing After Prostate Surgery Surgery on the prostate gland can cause incontinence. Most often, the incontinence is only for a short time. It clears up when healing is complete. Very rarely, prostate surgery can result in permanent incontinence. documented in this encounter Progress Notes * Anamaria Allison, DO - 10/06/2023 4:11 PM EST SUBJECTIVE: Chief Complaint Patient presents with Follow Up HPI: Armani Woods is a 88 year old male who presents today for regular return. Pt notes that he is doing well. He continues to have knee pain. He notes that his last steroid injection did not lasttoo long. He is wondering if there are other options for him. He feels he is doing pretty well otherwise. He does continue with significant psoriasis of LE. He feels that the betamethasone helped but he does need more of it. Does not want to see dermatology again. 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 I12.9, N18.32 Chronic kidney disease, stage 3b ([facility]) N18.32 Moderate persistent asthma without complication J45.40 Atrial flutter ([facility]) I48.92 Vestibular schwannoma ([facility]) D33.3 COPD, group B, by GOLD 2017 classification ([facility]) J44.9 Other psoriasis L40.8 Dyslipidemia, goal LDL below 100 E78.5 Age-related osteoporosis without current pathological fracture M81.0 Other atherosclerosis of tulalip arteries of extremities, bilateral legs ([facility]) I70.293 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 135 Tablet 3 Betamethasone Dipropionate 0.05 % External Cream (Diprosone) Apply topically to affected area 2 times a day. To affected area. 45 g 1 Mqbafttosta-Bappehgyo-Hxbdri 100-62.5-25 MCG/ACT Aerosol Powder Breath Activated (Trelegy Ellipta) Inhale 1 Puff by mouth in the morning. 180 Each 3 Cetirizine HCl 10 MG Oral Tablet (ZyrTEC) TAKE 1 TABLET BY MOUTH EVERY DAY 90 Tablet 3 amLODIPine Besylate 2.5 MG Oral [...] DIAGNOSTIC (RECTUM) 02/20/2015 adenomatous polyp, repeat 3 yrs/[facility] COLONOSCOPY, DIAGNOSTIC (RECTUM) 07/11/2018 adenomatous polyp, diverticulosis/[facility] COLONOSCOPY, GI REFERRAL OP 08/23/2006 [...] hx of skin ca Heart Disorder Brother [place] AGE 60 73 [place] 89 Gastro-intestinal disorder [...] diarrhea, nausea and vomiting. Musculoskeletal: Positive for arthralgias. Negative for gait problem and joint swelling. Skin: Negative for color change, pallor and rash. As per HPI OBJECTIVE: BP 140/64 (BP Site: Left Arm, BP Position: Sitting, BP Cuff Size: Regular) | Pulse 78 | Temp 36.7 C (98.1 F) | Ht 1.702 m (5' 7") | Wt 80.9 kg (178 lb 6.4 oz) | SpO2 97% | BMI 27.94 kg/m | BSA 1.96 m PHYSICAL EXAM: Physical Exam Constitutional: General: [...] not pale. Findings: No erythema or rash. Comments: Numerous psoriasis patches of LE Neurological: Mental Status: He is alert and oriented to person, place, and time. ASSESSMENT/PLAN: (L40.50) Psoriatic arthropathy (HCC) (primary encounter diagnosis) (L40.9) Psoriasis Plan: Betamethasone Dipropionate 0.05 % External Cream (Diprosone) Pt will use betamethasone as needed. He will use regularly. Does not wish to return to dermatology. (I10) HTN, goal below 150/90 Plan: BP ok. He will remain on current regimen. 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 (J44.9) COPD, group B, by GOLD 2017 classification ([facility]) Plan: pt will continue with his Trelegy. Seems to be working well for him. He will continue. (I48.3) Typical atrial flutter ([facility]) Plan: Pt follows with cardiology. No changes to regimen for now. 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 No new issues. 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 Follow renal function. (N18.31) Stage 3a chronic kidney disease ([facility]) Plan: Has been stable. No changes for now. (F41.1) NE (generalized anxiety disorder) Plan: not currently on medication. Will monitor. (N25.81) Hyperparathyroidism, secondary renal ([facility]) Plan: No changes for now. Follows with nephrology. (M81.0) Age-related osteoporosis without current pathological fracture Plan: Not currently on medication. Has been on Actonel with stabilization in bone mineral density after a period of time. (Z13.9) Risk and functional assessment Plan: See nursing note. Follow-up: 3 months Total time today including reviewing chart before the visit, pertinent labs, imaging reports, face to face time, and documentation time was 34 minutes. Anamaria Allison DO * Denise Bhatt RN - 10/06/2023 3:52 PM EST Urinary Incontinence Plan of Care Documentation: (This education is for all patients over 65 regardless of symptoms) Current medications reconciled. Patient encouraged to: Practice kegal exercises Provide education materials Use the restroom every 2 hours throughout the day Limit caffeine, alcohol, spicy foods and acidic foods Keep a bladder diary Limit fluid intake 3-4 hours before bed Lose weight Prevent constipation Take fluid pills at a time when you can get to the bathroom quickly Control sugar better if diabetic Limit fluid intake to 60 oz. per day Wear support stockings (TEDs)if you have edema Denise Bhatt RN 10/06/2023 documented in this encounter Nursing Notes * Denise Bhatt RN - 10/06/2023 3:48 PM EST 3 month follow up Right leg-bakers cyst, arthritis-cracks after sitting for a period of time, hurts to move it at night. Had injection about 2 months ago-helped with discomfort. Some swelling at times in knee. documented in this encounter Plan of Treatment Upcoming Encounters Date Type Department Care Team (Late st Contact Info) Description 10/17/2023 2:00 PM EST Office Visit Orthopaedics [facility] [address] [place] [address] Yrn Gutierrez MD [address] [place] [address] 12/26/2023 9:30 AM EDT Office Visit Sleep Disorders Ctr [facility] [address] [facility] [place] [phone] Kitty Frost CRNP [address] [facility] [place] [address] 01/09/2024 9:20 AM EDT Office Visit Family Practice [address] [place] [address] [address] [place] [id number] Anamaria Allison DO [address] [place] [address] 01/24/2024 10:45 AM EDT Office Visit Orthopaedics [facility] [address] [facility] [place] [address] Yrn Gutierrez MD [address] [facility] [place] [address] 02/09/2024 2:00 PM EDT Office Visit Cardiology, [facility] [address] [facility] [place] [address] Kaden Francis [facility]C [facility] [place] [address] 03/28/2024 2:40 PM EDT Office Visit Nephrology, [facility] [address] [place], [place] [address] Ethan Gama MD [address] [place] [address] 04/08/2024 1:40 PM EDT Telemedicine Neurosurgery, [place] [address] [place] [address] Will Donaldson PA-C [address] [place] [address] 06/05/2024 10:45 AM EDT Office Visit Urology Jayesh Faith [address] [place] [address] [place] [address] Param Haines Jr., MD [address] [place] [address] [place] [address] Health Maintenance Due Date Last Done Comments *BISPHONATE OR OTHER ACCEPTABLE MEDICATION NEEDED FOR OSTEOPOROSIS (REFER TO SMARTSET #1146) 10/01/2022 COVID-19 Vaccine ( season) 2023 08/18/2021, 12/01/2020, 11/10/2020 Albumin/Creatinine Ratio 03/16/2024 023, 05/24/2022, 11/25/2021, Additional history exists CKD HGB USE SMARTSET [id number] 03/16/202403/16, 03/16/2023, 05/24/2022, Additional history exists CKD PHOS USE SMARTSET [id number] 03/16/2024 07/02/2023, 02/18/2022, 05/06/2021, Additional history exists [...] D LEVEL ONCE IN A LIFETIME-USE SMARTSET# [id number] Completed 03/16/2023, 05/24/2022, 07/02/2020, Additional history exists [...] as of this encounter Visit Diagnoses Diagnosis Psoriatic arthropathy (HCC)- Primary Psoriatic arthropathy Psoriasis Other psoriasis HTN, goal below 150/90 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, group B, by GOLD 2017 classification (HCC) Typical atrial flutter (HCC) Atrial flutter 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) Stage 3a chronic kidney disease (HCC) NE (generalized anxiety disorder) Generalized anxiety disorder Hyperparathyroidism, secondary renal (HCC) Secondary hyperparathyroidism (of renal origin) Age-related osteoporosis without current pathological fracture Senile osteoporosis Risk and functional assessment Screening for unspecified condition documented in this encounter Advance Directives Documents on File Type Date Recorded Patient Insulation Manager Expl anation Advance Directives and Living Will 04/09/2012 LIVING WILL DECLARAT ION - LIVING WILL Latest Code Status on File Code Status Date Activated Date Inactivated Comments Full Code 12/10/2007 8:45 AM 12/10/2007 3:42 PM Care Teams Child Psychiatrist Relationship Specialty Start Date End Date Anamaria Allison DO [address] [facility] [place] [address] PCP - General Family Medicine 10/26/22 documented as of this encounter
--- OUTSIDE RECORDS SUMMARY | 2023-12-23 14:47 | External Medical Summary | Summary of Care ---
Author Name Unknown Organization [facility] Address [address] [place] [address] Phone [phone] Care Team Providers Care Evp General Counsel Name Role Phone YesikaAnamaria max Jennifer CHÁVEZ Primary Care Provider [phone] Reason for Visit * Reason Comments Cough Encounter Details Date Type Department Care Team (Latest Contact Info) Description 08/24/2023 4:00 PM EST Convenient Care Visit [facility] [address] [place] [address] Bertha Fraire PA-C 174 [facility] [place] [id number] Acute non-recurrent frontal sinusitis* Allergies Active Allergy Reactions Criticality Noted Date [...] affected area. 45 g 1 07/27/2023 Active Amoxicillin-Pot Clavulanate 500-125 MG Oral Tablet (Augmentin)Indicatio ns:Acute non-recurrent frontal sinusitis Take 1 Tablet by mouth in the morning and 1 Tablet before bedtime. Do all this for 10 days. 20 Tablet 0 08/24/2023 3 Active Hospital, Clinic, or Other Facility Administered [...] 04/10/2007 Overview: ICD-10 update of inactive term alf current use of ant icoagulant therapy 08/11/2005 [...] mRNA, LNP-s, No Pre serve, 2-Dose Series ([employer]) 08/18/2021,12/01/2020,11/10/2020 Hepatitis B, 20+ yrs 07/07/1992,02/24/1992,01/21 PPD [...] Never Smokeless Tobacco: Never Tobacco Cessation:Counseling Given: Not Answered Alcohol Use Standard Drinks/Week Comments No 0 [...] Sign Reading Time Taken Comments Blood Pressure 142/78 08/24/2023 3:12 PM EST Pulse 80 08/24/2023 3:12 PM EST Temperature 36.1 C (96.9 F) 08/24/2023 3:12 PM ES T Respiratory Rate 16 08/24/2023 3:12 PM EST Oxygen Saturation 96% 08/24/2023 3:12 PM EST Inhaled Oxygen Concentration - - Weight 83.1 kg (183 lb 3.2 oz) 08/24/2023 3:12 P M EST Height 172.7 cm (5' 8") 08/24/2023 3:12 PM EST Body Mass Index 27.86 08/24/2023 3:12 PM EST documented in this encounter Patient Instructions * Patient Instructions* Bertha Fraire PA-C - 08/24/2023 3:48 PM EST Cont saline nasal spray, flonase New meds as prescribed Use inhalers as prescribed Try nebulizer and see if feel more open documented in this encounter Progress Notes * Bertha Fraire PA-C - 08/24/2023 3:35 PM EST Subjective: Nursing Notes: Sandie Sierra, RT 08/24/23 1513 Signed Armani Woods is a 88 year old male who presents to walk-in clinic today complaining of Main Symptoms: cough X 2 weeks How lon weeks Tried: cough drops Pt accompanied by: spouse Sx are cough time 2 weeks, with a lot of head congestion, rhino , post nasal drip, cough, cough improving some, but now how a bit of pressure around eyes and now Has sneezing fits Flonase helps some Cough productive No new BA's or LASSITER's no sick contacts at home. Sig med hx/risk factors: COPD, Hypertension, atrial flutter had flu shot this year. Review of Systems Constitutional: Positive for fatigue. Negative for activity change, appetite change and fever. HENT: Positive for congestion, postnasal drip, rhinorrhea, sinus pressure and sinus pain. Negative for ear pain, sore throat and voice change. Eyes: Negative for discharge and redness. Respiratory: Positive for cough and chest tightness (some , improving). Negative for shortness of breath and wheezing. Cardiovascular: Negative for chest pain. Gastrointestinal: Negative for abdominal pain, diarrhea, nausea and vomiting. Musculoskeletal: Negative for arthralgias, neck pain and neck stiffness. Allergic/Immunologic: Negative for environmental allergies. Neurological: Negative for dizziness. 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 Fluticasone Propionate 50 MCG/ACT Nasal Suspension (Flonase) Administer 2 Sprays into each nostril in the morning. Vitamin D 50 MCG (2000 UT) Oral Capsule Take 2,000 Units by mouth every other day. CPAP every night at bedtime . Knee Brace/Hinged Bars Medium Wear daily when active 1 Each 0 Levothyroxine Sodium 137 MCG Oral Tablet Take 1 Tablet by mouth in the morning. (at least 30 min prior to breakfast or other meds). 100 Tablet 3 Finasteride 5 MG Oral Tablet (Proscar) Take 1 Tablet by mouth in the morning. 90 Tablet 3 Losartan Potassium 100 MG Oral Tablet (Cozaar) TAKE 1 TABLET BY MOUTH EVERY DAY 90 Tablet 1 amLODIPine Besylate 2.5 MG Oral Tablet [...] NOT CRUSH OR CHEW. 135 Tablet 3 Meclizine HCl 25 MG Oral Tablet (Antivert) TAKE ONE TABLET BY MOUTH THREE TIMES A DAY NEEDED FORDIZZINESS 90 Tablet 5 Amoxicillin-Pot Clavulanate 500-125 MG Oral Tablet (Augmentin) Take 1 Tablet by mouth in the morning and 1 Tablet before bedtime. Do all this for 10 days. 20 Tablet 0 Cetirizine HCl 10 MG Oral Tablet (ZyrTEC) TAKE 1 TABLET BY MOUTH EVERY DAY 90 Tablet 3 Triamcinolone Acetonide 0.1 % External Cream (Aristocort) APPLY TOPICALLY TO AFFECTED AREA 2 TIMES A DAY. TO AFFECTED AREA. FOR PSORIASIS 80 g 5 Eucerin External Cream Apply topically to affected area as needed for Dry Skin. Apply to psoriasis areas Wdglgwwsowd-Qplhaanbe-Frxyhg 100-62.5-25 MCG/ACT Aerosol Powder Breath Activated (Trelegy Ellipta) INHALE ONE PUFF BY MOUTH EVERY MORNING 180 Each 3 Acetaminophen 500 MG Oral Tablet Take 1 Tablet by mouth. Takes 1 tablet in the morning and 1 tabletin the evening Betamethasone Dipropionate 0.05 % External Cream (Diprosone) Apply topically to affected area 2 times a day. To affected area. 45 g 1 Current Facility-Administered Medications Medication Dose Route Frequency Provider Last Rate Last Admin albuterol (PROVENTIL HFA) inhaler 4 Puff 4 Puff Inhalation Q4H PRN Denise Joseph MD 4 Puff at 11/29/17 1145 Albuterol Sulfate (Proventil) (2.5 MG/3ML) 0.083% inhalation solution 2.5 mg 2.5 mg Nebulizer PRN Rhonda Suarez CRNP Albuterol Sulfate (Proventil) (5 MG/ML) 0.5% *conc* inhalation solution 2.5 mg 2.5 mg Nebulizer PRRhonda Salazar CRNP Past Medical History: Diagnosis Date Adhesive capsulitis [...] Reactions Edgar Inhibitors Cough Sulfa Antibiotics Unknown Objective: BP 142/78 (BP Site: Left Arm, BP Position: Sitting, BP Cuff Size: Regular) | Pulse 80 | Temp 36.1 C (96.9 F) (Tympanic) | Resp 16 | Ht 1.727 m (5' 8") | Wt 83.1 kg (183 lb 3.2 oz) | SpO2 96% | BMI 27.86 kg/m | BSA 2 m Physical Exam Constitutional: Appearance: Normal appearance. He is normal weight. HENT: Head: Normocephalic. Right Ear: Tympanic membrane, ear canal and external ear normal. Left Ear: Tympanic membrane, ear canal and external ear normal. Nose: Congestion and rhinorrhea present. Mouth/Throat: Pharynx: No oropharyngeal exudate or posterior oropharyngeal erythema. Eyes: Extraocular Movements: Extraocular movements intact. Conjunctiva/sclera: Conjunctivae normal. Cardiovascular: Rate and Rhythm: Normal rate and regular rhythm. Heart sounds: Normal heart sounds. Pulmonary: Effort: Pulmonary effort is normal. Breath sounds: Normal breath sounds. No wheezing or rhonchi. Comments: Lungs sounded pretty good. Musculoskeletal: Cervical back: Normal range of motion. No rigidity. No muscular tenderness. Lymphadenopathy: Cervical: Cervical adenopathy present. Skin: Findings: No rash. Neurological: Mental Status: He is alert and oriented to person, place, and time. Psychiatric: Mood and Affect: Mood normal. Thought Content: Thought content normal. Judgment: Judgment normal. ASSESSMENT/PLAN: Acute non-recurrent frontal sinusitis (Primary) - Amoxicillin-Pot Clavulanate 500-125 MG Oral Tablet (Augmentin); Take 1 Tablet by mouth in the morning and 1 Tablet before bedtime. Do all this for 10 days. Patient Instructions Cont saline nasal spray, flonase New meds as prescribed Use inhalers as prescribed Try nebulizer and see if feel more open Return instruction reviewed with pt in detail. Reasons to report to the ED were also reviewed. Voiced understanding Advised to follow up if no improvement in 3-5days. Bertha Fraire PA-C documented in this encounter Nursing Notes * Sandie Sierra RT - 08/24/2023 3:07 PM EST Armani Woods is a 88 year old male who presents to walk-in clinic today complaining of Main Symptoms: cough X 2 weeks How lon weeks Tried: cough drops Pt accompanied by: spouse documented in this encounter Plan of Treatment Upcoming Encounters Date Type Department Care Team (Late st Contact Info) Description 09/25/2023 10:30 AM EST Office Visit Orthopaedics [facility] [address] [place] [address] Yrn Gutierrez MD [address] [place] [address] 10/02/2023 11:20 AM EST Office Visit Family Practice 65 [facility] [address] [place] [address] Anamaria Allison DO 293 [place] [address] 02/09/2024 2:00 PM EDT Office Visit Cardiology, [facility] 132 [place] [address] Kaden Francis PA-C 132 [place] [address] 03/28/2024 2:40 PM EDT Office Visit Nephrology, [facility] 200 [facility] [place] [address] Ethan Gama MD 200 [place] [address] 04/08/2024 1:40 PM EDT Telemedicine Neurosurgery, [place] [address] [place], [place] [phone] Will Donaldson PA-C [address] [place] [address] 06/05/2024 10:45 AM EDT Office Visit Urology Jayesh Faith [address] [place] [address] Param Haines Jr., MD [address] [place] [address] Health Maintenance Due Date Last Done Comments *BISPHONATE OR OTHER ACCEPTABLE MEDICATION NEEDED FOR OSTEOPOROSIS (REFER TO SMARTSET #1146) 10/01/2022 COVID-19 Vaccine ( season) 2023 08/18/2021, 12/01/2020, 11/10/2020 Albumin/Creatinine Ratio 03/16/2024 023, 05/24/2022, 11/25/2021, Additional history exists CKD HGB USE SMARTSET 90629 03/16/202403/16, 03/16/2023, 05/24/2022, Additional history exists CKD PHOS USE SMARTSET 66969 03/16/2024 07/0 02/2023, 02/18/2022, 05/06/2021, Additional history [...] D LEVEL ONCE IN A LIFETIME-USE SMARTSET# 49494 Completed 03/16/2023, 05/24/2022, 07/02/2020, Additional history exists [...] as of this encounter Visit Diagnoses Diagnosis Acute non-recurrent frontal sinusitis- Primary documented in this encounter Advance Directives Documents on File Type Date Recorded Patient Public Relations Professional Expl anation Advance Directives and Living Will 04/09/2012 LIVING WILL DECLARAT ION - LIVING WILL Latest Code Status on File Code Status Date Activated Date Inactivated Comments Full Code 12/10/2007 8:45 AM 12/10/2007 3:42 PM Care Teams Evp General Counsel Relationship Specialty Start Date End Date Anamaria Allison DO [address] [facility] [place] [address] PCP - General Family Medicine 10/26/22 documented as of this encounter
--- OUTSIDE RECORDS SUMMARY | 2023-12-23 14:47 | External Medical Summary | Summary of Care ---
Author Name Unknown Organization [facility] Address [address] [place] [address] Phone [phone] Care Team Providers Care Small Order Cutter Name Role Phone Anamaria Allison DO Primary Care Provider Reason for Visit * Reason Onset Date Comments Medication Refill 09/26/2023 Encounter Details Date Type Department Care Team (Late st Contact Info) Description 09/26/2023 Refill Family Practice 65 [facility] [address] [place] [address] Anamaria Allison DO 293 [place] [address] Moderate persistent asthma without complication Allergies Active Allergy Reactions Criticality Noted Date Comments Edgar Inhibitors Cough 12/30/2011 Sulfa Antibiotics Unknown 01/03/2019 documented as of this encounter (statuses as of 09/26/2023) Medications Medication Sig Dispensed Refills Start Date [...] affected area. 45 g 1 07/27/2023 Active Fluticasone-Umeclid in-Vilant 100-62.5-25 MCG/ACT Aerosol Powder Breath Activated (Trelegy Ellipta)Indications :Moderate persistent asthma without complication Inhale 1 Puff by mouth in the morning. 180 Each 3 09/26/2023 Active Fluticasone-Umeclid in-Vilant 100-62.5-25 MCG/ACT Aerosol Powder Breath Activated (Trelegy Ellipta)Indications :Moderate persistent asthma without complication Inhale 1 Puff by mouth in the morning. 180 Each 3 09/21/2023 4 Discontinu ed(Refill) Hospital, Clinic, or Other [...] as of this encounter (statuses as of 09/26/2023) Active Problems Problem Noted Date Diagnosed Date [...] as of this encounter (statuses as of 09/26/2023) Resolved Problems Problem Noted Date Diagnosed Date [...] as of this encounter (statuses as of 09/26/2023) Immunizations Name Administration Dates Next Due COVID-19 mRNA, LNP-s, No Pre serve, 2-Dose Series ([employer]) 08/18/2021,12/01/2020,11/10/2020 Diptheria/Tetanus (Adult) 04/06/1999,05/12/1989 Hepatitis B Vaccine [...] encounter Miscellaneous Notes * Addendum Note - Isela Young RPh - 09/26/2023 4:52 PM EST Addended by: ISELA YOUNG on: 09/26/2023 04:52 PM Modules accepted: Orders * Telephone Encounter - Isela Young RPh - 09/26/2023 4:47 PM EST Script already sent to mail order but not showing in system. Refill sent. Isela Evans, Pharm D, BCACP Clinical Pharmacist 65 [facility] 09/26/2023, 4:47 PM Ph. [phone] documented in this encounter Plan of Treatment Upcoming Encounters Date Type Department Care Team (Late st Contact Info) Description 10/06/2023 3:40 PM EST Office Visit Family Practice [address] [place] [address] 293 [place] [address] Anamaria Allison DO 293 [place] [address] 12/26/2023 9:30 AM EDT Office Visit Sleep Disorders Ctr [facility] 132 [facility] [place] [phone] Kitty Frost CRNP [facility] [place] [address] 01/24/2024 10:45 AM EDT Office Visit Orthopaedics [facility] [address] [place] [address] Yrn Gutierrez MD [address] [place] [address] 02/09/2024 2:00 PM EDT Office Visit Cardiology, [facility] [address] [place] [address] Kaden Francis PA-C [address] [place] [address] 03/28/2024 2:40 PM EDT Office Visit Nephrology, [facility] 200 [facility] [address] Ethan Gama MD 200 [facility] [place] [place] [address] 04/08/2024 1:40 PM EDT Telemedicine Neurosurgery, [place] [address] [place] [address] Will Donaldson PA-C [address] [place] [address] 06/05/2024 10:45 AM EDT Office Visit Urology Jayesh Faith [address] [place] [address] Param Haines Jr., MD [address] [place] [address] [place] [phone] Health Maintenance Due Date Last Done Comments *BISPHONATE OR OTHER ACCEPTABLE MEDICATION NEEDED FOR OSTEOPOROSIS (REFER TO SMARTSET #1146) 10/01/2022 COVID-19 Vaccine ( season) 2023 08/18/2021, 12/01/2020, 11/10/2020 Albumin/Creatinine Ratio 03/16/2024 023, 05/24/2022, 11/25/2021, Additional history exists CKD HGB USE SMARTSET 71530 03/16/202403/16, 03/16/2023, 05/24/2022, Additional history exists CKD PHOS USE SMARTSET 49568 03/16/2024 07/0 02/2023, 02/18/2022, 05/06/2021, Additional history [...] D LEVEL ONCE IN A LIFETIME-USE SMARTSET# 74262 Completed 03/16/2023, 05/24/2022, 07/02/2020, Additional history exists [...] Documents on File Type Date Recorded Patient Equal Opportunity Officer Expl anation Advance Directives and Living Will 04/09/2012 LIVING WILL DECLARAT ION - LIVING WILL Latest Code Status on File Code Status Date Activated Date Inactivated Comments Full Code 12/10/2007 8:45 AM 12/10/2007 3:42 PM Care Teams Small Order Cutter Relationship Specialty Start Date End Date Anamaria Allison DO [address] [place] [address] PCP - General Family Medicine 10/26/22 documented as of this encounter
--- OUTSIDE RECORDS SUMMARY | 2023-12-23 14:47 | External Medical Summary | Summary of Care ---
Author Name Unknown Organization [facility] Address [address] [place] [address] Phone [phone] Care Team Providers Care Cnc Grinder Name Role Phone Anamaria Allison DO Primary [...] mRNA, LNP-s, No Pre serve, 2-Dose Series ([employer]) 08/18/2021,12/01/2020,11/10/2020 Hepatitis B, 20+ yrs 07/07/1992,02/24/1992,01/21 PPD [...] Encounter - Mayuri Galindo LPN - 09/21/2023 1:11 PM ESTRefused Prescriptions: Disp Refills Trelegy Ellipta 100-62.5-25 MCG/ACT Aeroso*180 Ea*3 Sig: INHALEONE PUFF BY MOUTH EVERY MORNINGRefused By: MAYURI GALINDO LReason for Refusal: Duplicate Request------- documented in this encounter Plan of Treatment Upcoming Encounters Date Type Department Care Team (Late st Contact Info) Description 09/25/2023 10:30 AM EST Office Visit Orthopaedics [facility] [address] [place] [address] Yrn Gutierrez MD [address] [place] [address] 10/02/2023 11:20 AM EST Office Visit Family Practice [address] [place] [address] 293 [facility], [place] [address] Anamaria Allison DO 293 [place] [address] 12/26/2023 9:30 AM EDT Office Visit Sleep Disorders Ctr [facility] 132 [facility] [place] [phone] Kitty Frost CRNP 132 [facility] [place] [address] 02/09/2024 2:00 PM EDT Office Visit Cardiology, [facility] 132 [facility] [place] [address] Kaden Francis PA-C 132 [facility] [place] [address] 03/28/2024 2:40 PM EDT Office Visit Nephrology, [facility] 200 [facility] [place] [address] Ethan Gama MD 200 [facility] [place] [address] 04/08/2024 1:40 PM EDT Telemedicine Neurosurgery, [place] [address] [place], [place] [address] Will Donaldson PA-C [address] [place], [place] [address] 06/05/2024 10:45 AM EDT Office Visit Urology Jayesh Faith [address] [place] [address] [place] [address] Param Haines Jr., MD [address] [place] [address] [place] [address] Health Maintenance Due Date Last Done Comments *BISPHONATE OR OTHER ACCEPTABLE MEDICATION NEEDED FOR OSTEOPOROSIS (REFER TO SMARTSET #1146) 10/01/2022 COVID-19 Vaccine ( season) 2023 08/18/2021, 12/01/2020, 11/10/2020 Albumin/Creatinine Ratio 03/16/2024 023, 05/24/2022, 11/25/2021, Additional history exists CKD HGB USE SMARTSET 37411 03/16/202403/16, 03/16/2023, 05/24/2022, Additional history exists CKD PHOS USE SMARTSET 98996 03/16/2024 07/0 02/2023, 02/18/2022, 05/06/2021, Additional history [...] D LEVEL ONCE IN A LIFETIME-USE SMARTSET# 99908 Completed 03/16/2023, 05/24/2022, 07/02/2020, Additional history exists [...] Documents on File Type Date Recorded Patient Electric Track Switch Maintainer Expl anation Advance Directives and Living Will 04/09/2012 LIVING WILL DECLARAT ION - LIVING WILL Latest Code Status on File Code Status Date Activated Date Inactivated Comments Full Code 12/10/2007 8:45 AM 12/10/2007 3:42 PM Care Teams Cnc Grinder Relationship Specialty Start Date End Date Anamaria Allison DO [address] [place] [address] PCP - General Family Medicine 10/26/22 documented as of this encounter
--- OUTSIDE RECORDS SUMMARY | 2023-12-23 14:47 | External Medical Summary | Summary of Care ---
Author Name Unknown Organization [facility] Address [address] [place] [address] Phone [phone] Care Team Providers Care Fire Safety Inspector Name Role Phone Anamaria Allison DO Primary Care Provider Reason for Visit * Reason Comments Follow Up Left shoulder Encounter Details Date Type Department Care Team (Late st Contact Info) Description 09/25/2023 10:30 AM EST Office Visit Orthopaedics [facility] 132 [facility] [place] [address] Yrn Gutierrez MD 132 [facility] [place] [address] Rotator cuff arthropathy of left shoulder* Allergies [...] Overview: ICD-10 update of inactive term intermediate designer current use of ant icoagulant therapy 08/11/2005 [...] mRNA, LNP-s, No Pre serve, 2-Dose Series ([employer]) 08/18/2021,12/01/2020,11/10/2020 Hepatitis B, 20+ yrs 07/07/1992,02/24/1992,01/21 PPD [...] - 09/25/2023 10:23 AM EST Armani Woods [id number] Armani Woods is a 86 year old male who presents for f/u to [facility] Orthopaedics and Sports Medicine for left shoulder [...] hx of skin ca Heart Disorder Brother [place] AGE 60 73 [place] 89 Gastro-intestinal disorder [...] file Gets together: Not on file Attends oriental orthodox service: Not on file Active member of [...] Not Asked Social History Narrative 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 Vaping/E-Cigarette Use Vaping/E-Cigarette Use [...] MD Primary Care Sports Medicine [facility] 132 [facility] [address] documented in this encounter Nursing Notes * [...] 3:40 PM EST Office Visit Family Practice [address] [place] [address], [place] 293 [place] [address] Anamaria Allison DO 293 [place] [address] 12/26/2023 9:30 AM EDT Office Visit Sleep Disorders Ctr [facility] 132 [facility] [place] [phone] Kitty Frost CRNP [facility] [place] [address] 01/24/2024 10:45 AM EDT Office Visit Orthopaedics [facility] [address] [place] [address] Yrn Gutierrez MD [address] [place] [address] 02/09/2024 2:00 PM EDT Office Visit Cardiology, [facility] 132 [place] [address] Kaden Francis PA-C 132 [facility] [place] [address] 03/28/2024 2:40 PM EDT Office Visit Nephrology, [facility] 200 [place] [address] Ethan Gama MD 200 [place] [address] 04/08/2024 1:40 PM EDT Telemedicine Neurosurgery, [place] [address] [place] [address] Will Donaldson PA-C [address] [place], [place] [address] 06/05/2024 10:45 AM EDT Office Visit Urology Jayesh Faith [address] [place] [address] [place] [address] Param Haines Jr., MD [address] [place] [address] [place] [address] Scheduled Orders Name Type Priority Associated Diagnoses [...] Additional history exists CKD HGB USE SMARTSET 19177 03/16/202403/16, 03/16/2023, 05/24/2022, Additional history exists CKD PHOS USE SMARTSET 75232 03/16/2024 07/0 02/2023, 02/18/2022, 05/06/2021, Additional history [...] D LEVEL ONCE IN A LIFETIME-USE SMARTSET# 54610 Completed 03/16/2023, 05/24/2022, 07/02/2020, Additional history exists [...] Documents on File Type Date Recorded Patient Consulting Systems Engineer Expl anation Advance Directives and Living Will 04/09/2012 LIVING WILL DECLARAT ION - LIVING WILL Latest Code Status on File Code Status Date Activated Date Inactivated Comments Full Code 12/10/2007 8:45 AM 12/10/2007 3:42 PM Care Teams Fire Safety Inspector Relationship Specialty Start Date End Date Anamaria Allison DO [address] [place] [address] PCP - General Family Medicine 10/26/22 documented as of this encounter
--- OUTSIDE RECORDS SUMMARY | 2023-12-23 14:47 | External Medical Summary | Summary of Care ---
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 [phone] documented in this encounter Plan of Treatment Upcoming Encounters Date Type Department Care Team (Late st Contact Info) Description 10/06/2023 3:40 PM EST Office Visit Family Practice [address] [place] [address] 293 [place] [address] Anamaria Allison DO 293 [place] [address] 12/26/2023 9:30 AM EDT Office Visit [facility] 132 [facility] [place] [phone] Kitty Frost CRNP [facility] [address] 01/24/2024 10:45 AM EDT Office Visit Orthopaedics [facility] [address] [place] [address] Yrn Gutierrez MD [address] [place] [address] 02/09/2024 2:00 PM EDT Office Visit Cardiology, [facility] [address] [place] [address] aKden Francis PA-C [address] [place] [address] 03/28/2024 2:40 PM EDT Office Visit Nephrology, [facility] 200 [place] [address] Ethan Gama MD 200 [facility] [place] [address] 04/08/2024 1:40 PM EDT Telemedicine Neurosurgery, [place] [address] [place] [address] Will Donaldson PA-C [address] [place] [address] 06/05/2024 10:45 AM EDT Office Visit Urology Jayesh Faith [address] [place] [address] [place] [address] Param Haines Jr., MD [address] [place] [address] [place] [phone] Health Maintenance Due Date Last Done Comments *BISPHONATE OR OTHER ACCEPTABLE MEDICATION NEEDED FOR OSTEOPOROSIS (REFER TO SMARTSET #1146) 10/01/2022 COVID-19 Vaccine ( season) 2023 08/18/2021, 12/01/2020, 11/10/2020 Albumin/Creatinine Ratio 03/16/2024 023, 05/24/2022, 11/25/2021, Additional history exists CKD HGB USE SMARTSET 23381 03/16/202403/16, 03/16/2023, 05/24/2022, Additional history exists CKD PHOS USE SMARTSET 18440 03/16/2024 07/0 02/2023, 02/18/2022, 05/06/2021, Additional history [...] D LEVEL ONCE IN A LIFETIME-USE SMARTSET# 10752 Completed 03/16/2023, 05/24/2022, 07/02/2020, Additional history exists [...] Documents on File Type Date Recorded Patient Naturopathic Oncology Provider Expl anation Advance Directives and Living Will 04/09/2012 LIVING WILL DECLARAT ION - LIVING WILL Latest Code Status on File Code Status Date Activated Date Inactivated Comments Full Code 12/10/2007 8:45 AM 12/10/2007 3:42 PM Care Teams Geothermal Operating Engineer Relationship Specialty Start Date End Date Anamaria Allison DO [address] [place] [address] PCP - General Family Medicine 10/26/22 documented as of this encounter
--- OUTSIDE RECORDS SUMMARY | 2023-12-23 14:48 | External Medical Summary | Summary of Care ---
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 08/11/2005 [...] mRNA, LNP-s, No Pre serve, 2-Dose Series ([email or web address]) 08/18/2021,12/01/2020,11/10/2020 Hepatitis B, 20+ yrs 07/07/1992,02/24/1992,01/21 PPD [...] 09/25/2023 10:30 AM EST Office Visit Orthopaedics [facility] 132 [facility] [place] [address] Yrn Gutierrez MD 132 [place] [address] 10/02/2023 11:20 AM EST Office Visit Family Practice [address] [place] [address] 293 [facility] [place] [address] Anamaria Allison DO 293 [place] [address] 02/09/2024 2:00 PM EDT Office Visit Cardiology, [facility] 132 [facility] [place] [address] Kaden [address]ash [facility] [place] [address] 03/28/2024 2:40 PM EDT Office Visit Nephrology, [place] [address] [place] [address] Ethan Gama MD [address] [place] [address] 04/08/2024 1:40 PM EDT Telemedicine Neurosurgery, [place] [address] [place], [place] [phone] Will Donaldson PA-C [address] [place], [place] [phone] 06/05/2024 10:45 AM EDT Office Visit Urology Flores[place]esh Chaves [address] [place] [address] [place] [address] Yancy Chen, Param Lemons MD [address] [place] [address] [place] [address] Health Maintenance Due Date Last Done Comments *BISPHONATE OR OTHER ACCEPTABLE MEDICATION NEEDED FOR OSTEOPOROSIS (REFER TO SMARTSET #1146) 10/01/2022 COVID-19 Vaccine ( season) 2023 08/18/2021, 12/01/2020, 11/10/2020 Albumin/Creatinine Ratio 03/16/2024 023, 05/24/2022, 11/25/2021, Additional history exists CKD HGB USE SMARTSET 64970 03/16/202403/16, 03/16/2023, 05/24/2022, Additional history exists CKD PHOS USE SMARTSET 87564 03/16/2024 07/0 02/2023, 02/18/2022, 05/06/2021, Additional history [...] D LEVEL ONCE IN A LIFETIME-USE SMARTSET# 64775 Completed 03/16/2023, 05/24/2022, 07/02/2020, Additional history exists [...] Documents on File Type Date Recorded 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
--- OUTSIDE RECORDS SUMMARY | 2023-12-23 14:48 | External Medical Summary | Summary of Care ---
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 icoagulant therapy 08/11/2005 [...] mRNA, LNP-s, No Pre serve, 2-Dose Series ([employer]app[employer]) 08/18/2021,12/01/2020,11/10/2020 Hepatitis B, 20+ yrs 07/07/1992,02/24/1992,01/21 PPD [...] 09/25/2023 10:30 AM EST Office Visit Orthopaedics [facility] 132 [facility] [place] [address] Yrn Gutierrez MD 132 [facility] [place] [address] 10/02/2023 11:20 AM EST Office Visit Family Practice [address] [place] [address] 293 [place] [address] Anamaria Allison DO 293 [place] [address] 02/09/2024 2:00 PM EDT Office Visit Cardiology, [facility] 132 [facility] [place] [address] Kaden Francis PAKash 132 [facility] [place] [address] 03/28/2024 2:40 PM EDT Office Visit Nephrology, [place] [address] [place] [address] Ethan Gama MD [address] [place] [address] 04/08/2024 1:40 PM EDT Telemedicine Neurosurgery, [place] [address] [place], [place] [phone] Will Donaldson PA-C [address] [place], [place] [address] 06/05/2024 10:45 AM EDT Office Visit Urology [place]esh Chaves [address] [place] [address] [place] [address] Yancy Chen, Param Lemons MD [address] [place] [address] [place] [address] Health Maintenance Due Date Last Done Comments *BISPHONATE OR OTHER ACCEPTABLE MEDICATION NEEDED FOR OSTEOPOROSIS (REFER TO SMARTSET #1146) 10/01/2022 COVID-19 Vaccine ( season) 2023 08/18/2021, 12/01/2020, 11/10/2020 Albumin/Creatinine Ratio 03/16/2024 023, 05/24/2022, 11/25/2021, Additional history exists CKD HGB USE SMARTSET 20995 03/16/202403/16, 03/16/2023, 05/24/2022, Additional history exists CKD PHOS USE SMARTSET 62110 03/16/2024 07/0 02/2023, 02/18/2022, 05/06/2021, Additional history [...] D LEVEL ONCE IN A LIFETIME-USE SMARTSET# 17982 Completed 03/16/2023, 05/24/2022, 07/02/2020, Additional history exists [...] on File Type Date Recorded 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
--- OUTSIDE RECORDS SUMMARY | 2023-12-23 14:48 | External Medical Summary | Summary of Care ---
Author Name Unknown Organization [facility] Address [address] [place] [address] Phone [phone] Care Team Providers Care Genetic Counselor Name Role Phone Anamaria Allison DO Primary Care Provider [phone] Reason for Visit * Reason Comments Follow Up Encounter Details Date Type Department Care Team (Latest Contact Info) Description 07/27/2023 2:20 PM EST Office Visit Family Practice 65 [facility] 293 [place] [address] Anamaria Allison DO [address] [place] [phone] Primary osteoarthritis of one knee, right*; Psoriasis Allergies Active Allergy Reactions Criticality Noted Date Comments Edgar Inhibitors Cough 12/30/2011 Sulfa Antibiotics Unknown 01/03/2019 documented as of this encounter (statuses as of 07/28/2023) Medications Medication Sig Dispensed Refills Start Date [...] mg NEBULIZER PRN 10/04/2022 10/04/2023 Acti ve Lidocaine 1 % (PF) inj 10 mgIndications:Primary osteoarthritis of one knee, right 10 mg IX ONCE 07/27/2023 07/27/2023 Ended methylPREDNISolone acetate (Depo-Medrol) 40 MG/ML inj 40 mgIndications:Primary osteoarthritis of one knee, right 40 mg IX ONCE 07/27/2023 07/27/2023 Ended documented as of this encounter (statuses as of 07/28/2023) Active Problems Problem Noted Date Diagnosed Date [...] as of this encounter (statuses as of 07/28/2023) Resolved Problems Problem Noted Date Diagnosed Date [...] 04/10/2007 Overview: ICD-10 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 inactive term 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 current use of ant icoagulant therapy 08/11/2005 [...] as of this encounter (statuses as of 07/28/2023) Immunizations Name Administration Dates Next Due COVID-19 mRNA, LNP-s, No Pre serve, 2-Dose Series (TalentBin) 08/18/2021,12/01/2020,11/10/2020 Diptheria/Tetanus (Adult) 04/06/1999,05/12/1989 Hepatitis B Vaccine 07/07/1992,02/24/1992,1991 Hepatitis B, 20+ yrs 07/07/1992,02/24/1992,01/21 Influenza, Whole Virus 06/16/2005 OPV - Polio Virus Vaccine (Oral) 03/11/1992 PPD 01/05/2009,11/27/2007 Pneumococcal Conjugate Vacc, 13 Valent (Prevnar) 01/27/2015 Pneumococcal Polysaccharide PPV23 (Pneumovax) 06/02/2010,11/27/2001 SEASONAL INFLUENZA, PF, 6 M & Above, IM , (FLULAVAL or FLUZONE) 05/17/2018 Seasonal Influenza Virus Vac cine, Unspecified Formulation 05/31/2021,05/30/2019,05/17/2018,05/29,05/20/2016,06/06/2012,06/06/2011 ,06/02/2010,06/01/2009,06/23/2008,06/11,07/07/2006,06/16/2005, 3,07/03/2002,08/28/2000,07/26/1999 Seasonal Influenza, Quadriva lent Hd (Fluzone Hd) [...] Sign Reading Time Taken Comments Blood Pressure 134/70 07/27/2023 2:32 PM EST Pulse 68 07/27/2023 2:32 PM EST Temperature 36.6 C (97.9 F) 07/27/2023 2:32 PM ES T Respiratory Rate 14 07/27/2023 2:32 PM EST Oxygen Saturation 97% 07/27/2023 2:32 PM EST Inhaled Oxygen Concentration - - Weight 80.7 kg (178 lb) 07/27/2023 2:32 PM EST Height 172.7 cm (5' 8") 07/27/2023 2:32 PM EST Body Mass Index 27.06 07/27/2023 2:32 PM EST documented in this encounter Progress Notes * Yesikawinter Anamaria M, DO - 07/27/2023 2:25 PM EST SUBJECTIVE: Chief Complaint Patient presents with Follow Up HPI: Armani Woods is a 88 year old male who presents today for regular return. Pt notes that he is doing ok. He notes that his right knee is starting to bother him. He would like an injection in his knee again today. Last was in February. He notes that he has to watch what he does with that knee as it will give out on him. 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 Akxsitffnvu-Wpzpxfddy-Lpvhpr 100-62.5-25 MCG/ACT Aerosol Powder Breath Activated (Trelegy Ellipta) INHALE ONE PUFF BY MOUTH EVERY MORNING 180 Each 3 Levothyroxine Sodium 137 MCG Oral Tablet [...] day. To affected area. 45 g 1 Eucerin External Cream Apply topically to affected area as needed for Dry Skin. Apply to psoriasis areas Knee Brace/Hinged Bars Medium Wear daily when active 1 Each 0 Current Facility-Administered Medications Medication Dose Route Frequency [...] mg 2.5 mg Nebulizer PRRhonda Salazar CRNP Lidocaine 1 % (PF) inj 10 mg 10 mg Intra-Articular Once Anamaria Allison DO methylPREDNISolone acetate (Depo-Medrol) 40 MG/ML inj 40 mg 40 mg Intra- Articular Once Anamaria Allison DO Past Medical History: Diagnosis Date Adhesive capsulitis [...] DIAGNOSTIC (RECTUM) 02/20/2015 adenomatous polyp, repeat 3 yrs/[facility] COLONOSCOPY, DIAGNOSTIC (RECTUM) 07/11/2018 adenomatous polyp, diverticulosis/[facility] COLONOSCOPY, GI REFERRAL OP 08/23/2006 adenomatous [...] hx of skin ca Heart Disorder Brother PA AGE 60 73 [place] 99 Gastro-intestinal disorder [...] color change, pallor and rash. OBJECTIVE: BP 134/70 | Pulse 68 | Temp 36.6 C (97.9 F) (Tympanic) | Resp 14 | Ht 1.727 m (5' 8") | Wt 80.7kg (178 lb) | SpO2 97% | BMI 27.06 kg/m | BSA 1.97 m PHYSICAL EXAM: [...] no guarding. Musculoskeletal: General: Tenderness (along medial and lateral joint lines) present. No deformity. Normal range of motion. Skin: General: Skin is warm and dry. Coloration: Skin is not pale. Findings: Rash (psoriasis plaques) present. No erythema. Neurological: Mental Status: He is alert and oriented to person, place, and time. PROCEDURE: Time Out Procedure: Correct patient identity (Ask Name/Date of ) - Yes Correct Procedure and Consent - Yes Verified Side and Site - Yes Correct patient position - Yes All necessary Equipment/Prior Studies Present - Yes Reviewed special requirements of this patient (i.e. Allergies) - Yes Anamaria Allison DO Risks, benefits, and alternatives to the procedures were discussed with the patient and all questions were answered. Patient specific risk factors were reviewed and considered. After reviewing the risks with the patient (including bleeding, infection and skin atrophy) - under sterile conditions andpreparing the site with isospropyl alcohol, the right knee joint was injected with lidocaine 1% anddepomedrol 40 mg. The patient tolerated the procedure well without complications and was instructedon subsequent follow-up care (local care and any necessary restrictions). Anamaria Allison DO ASSESSMENT/PLAN: (M17.11) Primary osteoarthritis of one knee, right (primary encounter diagnosis) Plan: ARTHROCENT ASP &/OR INJ MAJOR JX/BURSA W/O US, Lidocaine 1 % (PF) inj 10 mg, methylPREDNISolone acetate (Depo-Medrol) 40 MG/ML inj 40 mg Pt tolerated injection as above. He will monitor. Continue to use his cane. (L40.9) Psoriasis Plan: Betamethasone Dipropionate 0.05 % External Cream (Diprosone) Pt will trial betamethasone to psoriasis. He will monitor. Call office if symptoms worsen or fail to improve. Follow-up: as scheduled Total time today including reviewing chart before the visit, pertinent labs, imaging reports, face to face time, and documentation time was 35 minutes. Anamaria Allison DO documented in this encounter Nursing Notes * Denise Torre LPN - 07/27/2023 2:32 PM EST Patient presents for follow up, voices no complaints. documented in this encounter Plan of Treatment Upcoming Encounters Date Type Department Care Team (Late st Contact Info) Description 09/20/2023 3:30 PM EST Office Visit Sleep Disorders [facility] [address] [place] [phone] Kitty Frost CRNP [address] [place] [address] 09/25/2023 10:30 AM EST Office [facility] [place] [address] Yrn Gutierrez MD [address] [place] [address] 10/02/2023 11:20 AM EST Office Visit Family Practice [facility] 293 [facility], [place] [address] Anamaria Allison DO 293 [facility], [place] [address] 10/25/2023 1:00 PM EST Office Visit Cardiology, [facility] [address] [place] [address] Kaden Francis PA-C [address] [place] [address] 03/28/2024 2:40 PM EDT Office Visit Nephrology, [address] [place] [address] Ethan Gama MD [address] [place], [place] [address] 04/08/2024 1:40 PM EDT Telemedicine Neurosurgery, [place] [address] [place] [address] Will Donaldson PA-C [address] [place], [place] [address] 06/05/2024 10:45 AM EDT Office Visit Urology Jayesh Faith [address] [place] [address] [place] [address] Param Haines Jr., MD [address] [place] [address] [place] [address] Scheduled Orders Name Type Priority Associated Diagnoses Orde r Schedule ARTHROCENT ASP &/OR INJ MAJOR JX/BURSA W/O US Procedures Routine Primary osteoarthritis of one knee, right Ordered: 07/27/2023 Health Maintenance Due Date Last Done Comments *BISPHONATE OR OTHER ACCEPTABLE MEDICATION NEEDED FOR OSTEOPOROSIS (REFER TO SMARTSET #1146) 10/01/2022 COVID-19 Vaccine ( season) 2023 08/18/2021, 12/01/2020, 11/10/2020 Albumin/Creatinine Ratio 03/16/20242 023, 05/24/2022, 11/25/2021, Additional history exists CKD HGB USE SMARTSET 01195 03/16/202403/16, 03/16/2023, 05/24/2022, Additional history exists CKD PHOS USE SMARTSET 26509 03/16/2024 07/0 02/2023, 02/18/2022, 05/06/2021, Additional history [...] D LEVEL ONCE IN A LIFETIME-USE SMARTSET# 22017 Completed 03/16/2023, 05/24/2022, 07/02/2020, Additional history exists [...] encounter Visit Diagnoses Diagnosis Primary osteoarthritis of one knee, right- Primary Psoriasis Other psoriasis documented in this encounter Administered Medications Inactive Administered Medications - up to 3 most recent administrations Medication Order MAR Action Action Date Dose Rate Site Lidocaine 1 % (PF) inj 10 mg 10 mg, Intra-Articular, ONCE, On Joyce 07/27/23 at 1545, For 1 dose Given 07/27/2023 5:38 PM EST 10 mg methylPREDNISolone acetate (Depo-Medrol) 40 MG/ML inj 40 mg 40 mg, Intra-Articular, ONCE, On [place] 07/27/23 at 1545, For 1 dose Given 07/27/2023 5:39 PM EST 40 mg documented in this encounter Advance Directives Documents on File Type Date Recorded 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
--- OUTSIDE RECORDS SUMMARY | 2023-12-23 14:48 | External Medical Summary | Summary of Care ---
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 therapy 08/11/2005 [...] mRNA, LNP-s, No Pre serve, 2-Dose Series ([employer]) 08/18/2021,12/01/2020,11/10/2020 Hepatitis B, 20+ yrs 07/07/1992,02/24/1992,01/21 [...] 09/25/2023 10:30 AM EST Office Visit Orthopaedics [facility] 132 [facility] [place] [address] Yrn Gutierrez MD 132 [facility] [place] [address] 10/02/2023 11:20 AM EST Office Visit Family Practice [address] [place] [address] 293 [facility] [place] [address] Anamaria Allison DO 293 [place] [address] 02/09/2024 2:00 PM EDT Office Visit Cardiology, [facility] [place] [address] Kaden Francis PAKash [address] [facility] [place] [address] 03/28/2024 2:40 PM EDT Office Visit Nephrology, [place] [address] [place] [address] Ethan Gama MD [address] [place] [address] 04/08/2024 1:40 PM EDT Telemedicine Neurosurgery, [place] [address] [place], [place] [phone] Will Donaldson PA-C [address] [place], [place] [phone] 06/05/2024 10:45 AM EDT Office Visit Urology [place]esh Chaves [address] [place] [address] [place] [address] Yancy Chen, Param Lemons MD [address] [place] [address] [place] [address] Health Maintenance Due Date Last Done Comments *BISPHONATE OR OTHER ACCEPTABLE MEDICATION NEEDED FOR OSTEOPOROSIS (REFER TO SMARTSET #1146) 10/01/2022 COVID-19 Vaccine ( season) 2023 08/18/2021, 12/01/2020, 11/10/2020 Albumin/Creatinine Ratio 03/16/2024 023, 05/24/2022, 11/25/2021, Additional history exists CKD HGB USE SMARTSET 36430 03/16/202403/16, 03/16/2023, 05/24/2022, Additional history exists CKD PHOS USE SMARTSET 78040 03/16/2024 07/0 02/2023, 02/18/2022, 05/06/2021, Additional history [...] D LEVEL ONCE IN A LIFETIME-USE SMARTSET# 15902 Completed 03/16/2023, 05/24/2022, 07/02/2020, Additional history exists [...] Documents on File Type Date Recorded 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
--- OUTSIDE RECORDS SUMMARY | 2023-12-23 14:48 | External Medical Summary | Summary of Care ---
Author Name Unknown Organization [facility] Address [address] [place] [address] Phone [phone] Care Team Providers Care Mastic Man Name Role Phone Anamaria Allison DO Primary Care Provider Reason for Visit * Reason Comments Follow Up Encounter Details Date Type Department Care Team (Latest Contact Info) Description 07/27/2023 2:20 PM EST Office Visit Family Practice [facility] [address] [place] [address] Anamaria Allison DO [address] [place] [phone] Primary osteoarthritis of one knee, right*; Psoriasis Allergies Active Allergy Reactions Criticality Noted Date Comments Edgar Inhibitors Cough 12/30/2011 Sulfa Antibiotics Unknown 01/03/2019 documented as of this encounter (statuses as of 07/27/2023) Medications Medication Sig Dispensed Refills Start Date [...] knee, right 10 mg IX ONCE 07/27/2023 07/28/2023 Active methylPREDNISolone acetate (Depo-Medrol) 40 MG/ML inj 40 mgIndications:Primary osteoarthritis of one knee, right 40 mg IX ONCE 07/27/2023 07/28/2023 Active documented as of this encounter (statuses as of 07/27/2023) Active Problems Problem Noted Date Diagnosed Date [...] as of this encounter (statuses as of 07/27/2023) Resolved Problems Problem Noted Date Diagnosed Date [...] 04/10/2007 Overview: ICD-10 update of inactive term director long term care current use of ant icoagulant therapy [...] as of this encounter (statuses as of 07/27/2023) Immunizations Name Administration Dates Next Due COVID-19 mRNA, LNP-s, No Pre serve, 2-Dose Series ([employer]) 08/18/2021,12/01/2020,11/10/2020 Hepatitis B, 20+ yrs 07/07/1992,02/24/1992,01/21 PPD 01/05/2009,11/27/2007 Pneumococcal Conjugate Vacc, 13 Valent (Prevnar) 01/27/2015 Pneumococcal Polysaccharide PPV23 (Pneumovax) 06/02/2010 SEASONAL INFLUENZA, PF, 6 M & Above, [...] encounter Progress Notes * Anamaria Allison, - 07/27/2023 2:25 PM EST SUBJECTIVE: Chief [...] Active Problem List Diagnosis Code 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 symptoms [...] of pulmonary embolism Z86.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, 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 I12.9, N18.32 Chronic kidney disease, stage 3b ([facility]) N18.32 Moderate persistent asthma without complication J45.40 Atrial flutter ([facility]) I48.92 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, group B, by GOLD 2017 classification ([facility]) J44.9 Other psoriasis L40.8 Dyslipidemia, goal LDL below 100 E78.5 Age-related osteoporosis without current pathological fracture M81.0 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 Hwdindxbxio-Stlqbwdzr-Dodenn 100-62.5-25 MCG/ACT Aerosol Powder Breath Activated (Trelegy [...] inhaler 4 Puff 4 Puff Inhalation Q4H Denise Walsh MD 4 Puff at 11/29/17 1145 Albuterol Sulfate (Proventil) (2.5 MG/3ML) 0.083% inhalation solution 2.5 mg 2.5 mg Nebulizer PRN Rhonda Suarez CRNP Albuterol Sulfate (Proventil) (5 MG/ML) 0.5% *conc* inhalation solution 2.5 mg 2.5 mg Nebulizer PRNGRhonda gallagher CRNP Lidocaine 1 % (PF) inj 10 [...] DIAGNOSTIC (RECTUM) 02/20/2015 adenomatous polyp, repeat 3 yrs/[facility] COLONOSCOPY, DIAGNOSTIC (RECTUM) 07/11/2018 adenomatous polyp, diverticulosis/[facility] COLONOSCOPY, GI REFERRAL OP 08/23/2006 adenomatous polyps--repeat [...] PM EST Office Visit Sleep Disorders Ctr [facility] 132 [facility] [place] [phone] Kitty Frost CRNP 132 [facility] [place] [address] 09/25/2023 10:30 AM EST Office Visit Orthopaedics [facility] 132 [facility] [place] [address] Yrn Gutierrez MD 132 [facility] [place] [address] 10/02/2023 11:20 AM EST Office Visit Family Practice [address] [place] [address] 293 [place] [address] Anamaria Allison DO 293 [place] [address] 10/25/2023 1:00 PM EST Office Visit Cardiology, [facility] 132 [facility] [place] [address] Kaden Francis PAKsah 132 [facility] [place] [address] 03/28/2024 2:40 PM EDT Office Visit Nephrology, [place] [address] [place] [address] Ethan Gama MD [address] [place] [address] 04/08/2024 1:40 PM EDT Telemedicine Neurosurgery, [place] [address] [place], [place] [phone] Will Donaldson PA-C [address] [place] [address] 06/05/2024 10:45 AM EDT Office Visit Urology Jayesh Faith [address] [place] [address] [place] [address] Param Haines Jr., MD [address] [place] [address] [place] [address] Scheduled Orders Name Type Priority Associated Diagnoses [...] Additional history exists CKD HGB USE SMARTSET 71003 03/16/202403/16, 03/16/2023, 05/24/2022, Additional history exists CKD PHOS USE SMARTSET 47180 03/16/2024 07/02/2023, 02/18/2022, 05/06/2021, Additional history exists TSH 03/16/2024 03/16/2023, 02/09, 11/25/2021, Additional history exists Depression Screening 06/22/2024 06/22/2023 O2 ASSESSMENT COMPLETED IN PAST YEAR FOR COPD 06/22/2024 06/22/2023 DTaP,Tdap,and Td Vaccines (3 - Td or Tdap) 05/04/2032 05/04/2022, 12/05/2011, 04/06/1999, Additional history exists Hepatitis B Completed 07/07/1992, 06/12, 02/24/1992, Additional history exists Pneumococcal Vaccine: 65+ Years Completed 01/27/2015, 06/02/2010, 11/27/2001 DXA Scan Discontinued 11/23/2015, 04/11, 04/26/2007, Additional history exists Zoster Vaccines Completed 07/01/2020, 04/11, 06/06/2012 Alpha-1 Antitrypsin Completed 05/24/2022 VITAMIN D LEVEL ONCE IN A LIFETIME-USE SMARTSET# 68126 Completed 03/16/2023, 05/24/2022, 07/02/2020, Additional history exists [...] Psoriasis Other psoriasis documented in this encounter Advance Directives Documents on File Type Date Recorded Patient Pipe Coverer Expl anation Advance Directives and Living Will 04/09/2012 LIVING WILL DECLARAT ION - LIVING WILL Latest Code Status on File Code Status Date Activated Date Inactivated Comments Full Code 12/10/2007 8:45 AM 12/10/2007 3:42 PM Care Teams Mastic Man Relationship Specialty Start Date End Date Anamaria Allison DO [address] [facility] [place] [address] PCP - General Family Medicine 10/26/22 documented as of this encounter
--- OUTSIDE RECORDS SUMMARY | 2023-12-23 14:48 | External Medical Summary | Summary of Care ---
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 use of ant icoagulant therapy [...] mRNA, LNP-s, No Pre serve, 2-Dose Series ([employer]) 08/18/2021,12/01/2020,11/10/2020 Hepatitis B, 20+ yrs 07/07/1992,02/24/1992,01/21 PPD [...] 09/25/2023 10:30 AM EST Office Visit Orthopaedics [facility] 132 [facility] [place] [address] Yrn Gutierrez MD 132 [facility] [address] 10/02/2023 11:20 AM EST Office Visit Family Practice [address] [place] [address] 293 [place] [address] Anamaria Allison DO 293 [place] [address] 02/09/2024 2:00 PM EDT Office Visit Cardiology, [facility] 132 [facility] [place] [address] Kaden [address] PAKash [facility] [address] 03/28/2024 2:40 PM EDT Office Visit Nephrology, [place] [address] [place] [address] Ethan Gama MD [address] [place] [address] 04/08/2024 1:40 PM EDT Telemedicine Neurosurgery, [place] [address] [place], [place] [phone] Will Donaldson PA-C [address] [place], [place] [id number] 06/05/2024 10:45 AM EDT Office Visit Urology Flores[place]esh Chaves [address] [place] [address] [place] [address] Yancy Chen, Param Lemons MD [address] [place] [address] [place] [address] Health Maintenance Due Date Last Done Comments *BISPHONATE OR OTHER ACCEPTABLE MEDICATION NEEDED FOR OSTEOPOROSIS (REFER TO SMARTSET #1146) 10/01/2022 COVID-19 Vaccine ( season) 2023 08/18/2021, 12/01/2020, 11/10/2020 Albumin/Creatinine Ratio 03/16/2024 023, 05/24/2022, 11/25/2021, Additional history exists CKD HGB USE SMARTSET 18457 03/16/202403/16, 03/16/2023, 05/24/2022, Additional history exists CKD PHOS USE SMARTSET 21365 03/16/2024 07/0 02/2023, 02/18/2022, 05/06/2021, Additional history [...] D LEVEL ONCE IN A LIFETIME-USE SMARTSET# 65041 Completed 03/16/2023, 05/24/2022, 07/02/2020, Additional history exists [...] Documents on File Type Date Recorded Patient Guillotine Trimmer Expl anation Advance Directives and Living Will 04/09/2012 LIVING WILL DECLARAT ION - LIVING WILL Latest Code Status on File Code Status Date Activated Date Inactivated Comments Full Code 12/10/2007 8:45 AM 12/10/2007 3:42 PM Care Teams Vp Sales Relationship Specialty Start Date End Date Anamaria Allison DO 293 [place] [address] PCP - General Family Medicine 10/26/22 documented as of this encounter
--- OUTSIDE RECORDS SUMMARY | 2023-12-23 14:48 | External Medical Summary | Summary of Care ---
Author Name Unknown Organization [facility] Address [address] [place] [address] Phone [phone] Care Team Providers Care Asian Studies Program Chair Name Role Phone YesikaNancy maxdon Rodriguez DO Primary Care Provider [phone] Reason for Visit * Reason Onset Date Comments Oxygen Assessment 07/12/2023 Overnight oxim etry Encounter Details Date Type Department Care Team (Late st Contact Info) Description 07/12/2023 Telephone Sleep Disorders Ctr [facility] [place] [phone] Brianna Hernandez CRNP 132 [facility] [place] [address] Oxygen Assessment (Overnight oximetry) Allergies Active Allergy Reactions Criticality Noted Date Comments Edgar Inhibitors Cough 12/30/2011 Sulfa Antibiotics Unknown 01/03/2019 documented as of this encounter (statuses as of 07/12/2023) Medications Medication Sig Dispensed Refills Start Date [...] when active 1 Each 0 02/13/2023 Active Meclizine HCl 25 MG Oral Tablet (Antivert)Indication s:Vertigo TAKE ONE TABLET BY MOUTH THREE TIMES A DAY NEEDED FOR DIZZINESS 90 Tablet 3 03/02/2023 4 Active Additional Information Patient taking differently: Take 2 tablets in the morning, Reported on 06/05/2023 Fluticasone-Umeclidi n-Vilant 100-62.5-25 MCG/ACT Aerosol Powder Breath [...] OR CHEW. 135 Tablet 3 07/12/2023 Active Hospital, Clinic, or Other Facility Administered [...] as of this encounter (statuses as of 07/12/2023) Active Problems Problem Noted Date Diagnosed Date [...] 11/30/2021 Moderate persistent asthma without complication 04/19/2021 Prediabetes 04/19/2021 Overview: Per Prediabetes protocol Chronic kidney disease, stage 3b 01/19/2021 Overview: [...] as of this encounter (statuses as of 07/12/2023) Resolved Problems Problem Noted Date Diagnosed Date Resolved Date Hypertensive kidney disease with chronic kidney disease [...] Overview: ICD-10 update of inactive term senior living current use of ant icoagulant therapy 08/11/2005 [...] as of this encounter (statuses as of 07/12/2023) Immunizations Name Administration Dates Next Due COVID-19 [...] encounter Miscellaneous Notes * Addendum Note - Brianna Hernandez CRNP - 07/12/2023 4:39 PM EDTAddended by: BRIANNA HERNANDEZ on: 07/12/2023 04:39 PM Modules accepted: Orders * Telephone Encounter - Brianna Hernandez CRNP - 07/12/2023 10:59 AM EDT Noct ox 07/07/2023: aPAP 12-17 cwp- SpO2 naomi 86% with 41 seconds <89%, test time 8:21 hrs, rAHI 5.9, leak 19-39 L/min (mouth leak suspected) documented in this encounter Plan of Treatment Upcoming Encounters Date Type Department Care Team (Late st Contact Info) Description 09/20/2023 3:30 PM EST Office Visit Sleep Disorders Ctr [address] [place] [address] Brianna Hernandez CRNP [address] [facility] [place] [address] 09/25/2023 10:30 AM EST Office Visit Orthopaedics [facility] 132 [place] [address] Yrn Gutierrez MD [address] [place] [address] 10/02/2023 11:20 AM EST Office Visit Family Practice [address] [place] [address] 293 [place] [phone] Anamaria Allison DO 293 [place] [address] 10/25/2023 1:00 PM EST Office Visit Cardiology, [facility] 132 [place] [address] Kaden Francis PAKash 132 [place] [address] 03/28/2024 2:40 PM EDT Office Visit Nephrology, [facility] 200 [facility] [place] [address] Ethan Gama MD 200 [facility] [place] [address] 04/08/2024 1:40 PM EDT Telemedicine Neurosurgery, [place] [address] [place], [place] [phone] Will Donaldson PA-C [address] [place], [place] [phone] 06/05/2024 10:45 AM EDT Office Visit Urology [facility]esh Faith [facility] [address] [place] [address] Yancy Chen, Param Lemons MD 27 [facility] [place] [address] [place] [phone] Health Maintenance Due Date Last Done Comments *BISPHONATE OR OTHER ACCEPTABLE MEDICATION NEEDED FOR OSTEOPOROSIS (REFER TO SMARTSET #1146) 10/01/2022 COVID-19 Vaccine ( season) 2023 08/18/2021, 12/01/2020, 11/10/2020 Albumin/Creatinine Ratio 03/16/2024 023, 05/24/2022, 11/25/2021, Additional history exists CKD HGB USE SMARTSET 83350 03/16/202403/16, 03/16/2023, 05/24/2022, Additional history exists CKD PHOS USE SMARTSET 84980 03/16/2024 07/02/2023, 02/18/2022, 05/06/2021, Additional history exists TSH 03/16/2024 03/16/2023, 02/09, 11/25/2021, Additional history exists Depression Screening 06/22/2024 06/22/2023 HbA1c 06/22/2024 06/22/2023, 05/12, 11/25/2021, Additional history exists O2 ASSESSMENT COMPLETED IN [...] D LEVEL ONCE IN A LIFETIME-USE SMARTSET# 61007 Completed 03/16/2023, 05/24/2022, 07/02/2020, Additional history exists [...] as of this encounter Visit Diagnoses Diagnosis MARC (obstructive sleep apnea)- Primary Obstructive sleep apnea (adult) (pediatric) documented in this encounter Advance Directives Documents on File Type Date Recorded Patient Home Energy Consultant Expl anation Advance Directives and Living Will 04/09/2012 LIVING WILL DECLARAT ION - LIVING WILL Latest Code Status on File Code Status Date Activated Date Inactivated Comments Full Code 12/10/2007 8:45 AM 12/10/2007 3:42 PM Care Teams Asian Studies Program Chair Relationship Specialty Start Date End Date Anamaria Allison DO [address] [place] [address] PCP - General Family Medicine 10/26/22 documented as of this encounter
--- OUTSIDE RECORDS SUMMARY | 2023-12-23 14:48 | External Medical Summary | Summary of Care ---
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 132 [facility] [place] [address] Yrn Gutierrez MD 132 [facility] [place] [address] 10/02/2023 11:20 AM EST Office Visit Family Practice [address] [place] [address] 293 [place] [address] Anamaria Allison DO 293 [facility] [place] [address] 02/09/2024 2:00 PM EDT Office Visit Cardiology, [facility] 132 [place] [address] Kaden Francis PAKash 132 [facility] [place] [address] 03/28/2024 2:40 PM EDT Office Visit Nephrology, [place] [address] [place] [address] Ethan Gama MD [address] [place] [address] 04/08/2024 1:40 PM EDT Telemedicine Neurosurgery, [place] [address] [place], [place] [phone] Will Donaldson PA-C [address] [place], [place] [phone] 06/05/2024 10:45 AM EDT Office Visit Urology [place]esh Chaves [address] [place] [address] [place] [address] Yancy Chen, Param Lemons MD [address] [place] [address] [place] [address] Health Maintenance Due Date Last Done Comments *BISPHONATE OR OTHER ACCEPTABLE MEDICATION NEEDED FOR OSTEOPOROSIS (REFER TO SMARTSET #1146) 10/01/2022 COVID-19 Vaccine ( season) 2023 08/18/2021, 12/01/2020, 11/10/2020 Albumin/Creatinine Ratio 03/16/2024 023, 05/24/2022, 11/25/2021, Additional history exists CKD HGB USE SMARTSET 80246 03/16/202403/16, 03/16/2023, 05/24/2022, Additional history exists CKD PHOS USE SMARTSET 20112 03/16/2024 07/0 02/2023, 02/18/2022, 05/06/2021, Additional history [...] D LEVEL ONCE IN A LIFETIME-USE SMARTSET# 50976 Completed 03/16/2023, 05/24/2022, 07/02/2020, Additional history exists [...] Documents on File Type Date Recorded Patient Scaffold Erector Expl anation Advance Directives and Living Will 04/09/2012 LIVING WILL DECLARAT ION - LIVING WILL Latest Code Status on File Code Status Date Activated Date Inactivated Comments Full Code 12/10/2007 8:45 AM 12/10/2007 3:42 PM Care Teams Jalousies Installer Relationship Specialty Start Date End Date Anamaria Allison DO 293 [facility] [place] [address] PCP - General Family Medicine 10/26/22 documented as of this encounter
--- OUTSIDE RECORDS SUMMARY | 2023-12-23 14:48 | External Medical Summary | Summary of Care ---
Author Name Unknown Organization [facility] Address [address] [place] [address] Phone [phone] Care Team Providers Care Certified Professional Controller Name Role Phone Anamaria Allison DO Primary Care Provider Reason for Visit * Reason Comments Follow Up 9 month follow up. S OB with steps and inclines but no worse then prior. Dizziness from ear issue but uses meclizine. Right LE edema about the same. Denies chest pain and palpitations. Encounter Details Date Type Department Care Team (Late st Contact Info) Description 08/09/2023 1:30 PM EST Office Visit Cardiology, [facility] [address] [place] [address] Kaden Francis PA-C [address] [place] [address] Nonrheumatic aortic valve insufficiency*; HTN, goal below 150/90; Nonrheumatic mitral valve regurgitation; Dyslipidemia, goal LDL below 100; History of pulmonary embolism; VELAZQUEZ (dyspnea on exertion); Chronic kidney disease, stage 3b (HCC) Allergies Active Allergy Reactions Criticality Noted Date Comments Edgar Inhibitors Cough 12/30/2011 Sulfa Antibiotics Unknown 01/03/2019 documented as of this encounter (statuses as of 08/10/2023) Medications Medication Sig Dispensed Refills Start Date [...] as of this encounter (statuses as of 08/10/2023) Active Problems Problem Noted Date Diagnosed Date [...] as of this encounter (statuses as of 08/10/2023) Resolved Problems Problem Noted Date Diagnosed Date [...] as of this encounter (statuses as of 08/10/2023) Immunizations Name Administration Dates Next Due COVID-19 mRNA, LNP-s, No Pre serve, 2-Dose Series (Bablic) 08/18/2021,12/01/2020,11/10/2020 Hepatitis B, 20+ yrs 07/07/1992,02/24/1992,01/21 PPD [...] Sign Reading Time Taken Comments Blood Pressure 170/88 08/09/2023 1:27 PM EST Pulse 80 08/09/2023 1:27 PM EST Temperature - - Respiratory Rate 16 08/09/2023 1:27 PM EST Oxygen Saturation - - Inhaled Oxygen Concentration - - Weight 80.2 kg (176 lb 12 oz) 08/09/2023 1:27 PM EST Height - - Body Mass Index 26.87 07/27/2023 2:32 PM EST documented in this encounter Progress Notes * Kaden Francis PA-C - 08/09/2023 1:31 PM EST History of Present Illness: Armani Woods is a 88-year-old male here today for cardiology follow-up. - No chest pain or discomfort - No tachypalpitations - No unusual shortness of breath. Stable dyspnea when walking to get the mail. Doesn't climb stairsanymore, has a chair lift. - Typical leg swelling, right greater than left, history of DVT on the right, status post right hipreplacement. - No orthopnea or PND, CPAP QHS, can't go without it. - Dizziness controlled on Meclizine two per day in the morning. - No syncope. - Fighting a cough right now, some white phlegm, without fevers or chills. - No epistaxis, hemoptysis, melena, hematochezia, or hematuria. Problem List: Mixed valvular heart disease, aortic and mitral insufficiency Preserved LV systolic function Labile hypertension Chronic venous insufficiency History of deep vein thrombosis and pulmonary embolism Chronic obstructive pulmonary disease Sleep apnea, CPAP therapy. Vestibular schwannoma Anemia Stage III chronic kidney disease Benign prostatic hyperplasia Gastroesophageal reflux disease Dyslipidemia Hypothyroidism Migraine Osteoarthritis Psoriasis, psoriatic arthropathy Generalized anxiety disorder Insomnia Appendectomy Bilateral cataract surgery Foot surgery ORIF, right hip Left orbital fracture status post surgical repair Patient Active Problem List Diagnosis Code Psoriatic [...] J45.40 Atrial flutter (HCC) I48.92 Vestibular schwannoma ([facility]) D33.3 COPD, group B, by GOLD 2017 classification ([facility]) J44.9 Other psoriasis L40.8 Dyslipidemia, goal LDL below 100 E78.5 Age-related osteoporosis without current pathological fracture M81.0 Other atherosclerosis of [place] arteries of extremities, bilateral legs (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 No smokeless tobacco use. No significant alcohol use. No illegal drug use. to Shaina. Two children. Retired from [employer]. Complete Review of Systems is as stated above, negative, or noncontributory. Review of patient's allergies indicates: Allergen Reactions Edgar Inhibitors Cough Sulfa Antibiotics Unknown Current Outpatient Medications Medication Sig Dispense Refill [...] Wear daily when active 1 Each 0 Hjabcjrsbta-Pjdggrbue-Ybxzxc 100-62.5-25 MCG/ACT Aerosol Powder Breath Activated (Trelegy [...] day. To affected area. 45 g 1 Ipratropium-Albuterol 0.5-2.5 (3) MG/3ML Inhalation Solution (Duoneb) Inhale 3 mL via nebulizer every 6 hours as needed for Congestion or Shortness of Breath. 1080 mL 1 Current Facility-Administered Medications Medication Dose Route Frequency Provider Last Rate Last Admin albuterol (PROVENTIL HFA) inhaler 4 Puff 4 Puff Inhalation Q4H PRN Denise Joseph MD 4 Puff at 11/29/17 1145 Albuterol Sulfate (Proventil) (2.5 MG/3ML) 0.083% inhalation solution 2.5 mg 2.5 mg Nebulizer Rhonda Longoria CRNP Albuterol Sulfate (Proventil) (5 MG/ML) 0.5% *conc* inhalation solution 2.5 mg 2.5 mg Nebulizer PRRhonda Salazar CRNP OBJECTIVE/PHYSICAL EXAMINATION: BP 170/88 | Pulse 80 | Resp 16 | Wt 80.2 kg (176 lb 12 oz) | BMI 26.87 kg/m | BSA 1.96 m BP on my examination was 158/80 General: A&Ox3. NAD. Hard of hearing. HENT: Normocephalic. Atraumatic. Eyes: PER. Conjunctiva pink, sclera clear. Neck: No carotid bruits. No JVD. Heart: RRR, 80 bpm. Soft systolic ejection murmur. No diastolic murmur. No rub. No gallop. Lungs: Diminished. Decrease. Clear. No wheeze. Abdomen: +BS. Soft. Nontender. No masses or organomegaly. Extremities: Minimal edema, right greater than left. No clubbing. No cyanosis. Limited neurological examination is without focal deficits. Pulses: radial=2/4, posterior tibial=1/4. Data: March 19, 2021 TTE Interpretation Summary (as per Dr. Mariscal): The qualitative LV ejection fractionis 55-59% (normal). The LV wall thickness is mildly increased (concentric). The left atrium is mildly enlarged (35-41 ml/m^2). The left ventricular diastolic function is mildly abnormal (grade I). The aortic valve has three leaflets. Moderate to severe aortic valve regurgitation. Moderate mitral regurgitation is present. The mitral regurgitation jet is centrally directed. Mild tricuspid regurgitation is present. The estimated pulmonary artery systolic pressure is 38mm Hg. Compared to last available study changes are noted as follows: Moderate to severe aortic valve regurgitation, and moderatemitral regurgitation now present. June 24, 2021 TTE Interpretation Summary (as per Dr. Morales): The LV wall thickness is moderately increased (concentric). The left ventricular wall motion is normal. Calculated LV ejection Fraction = 61% (bi-plane method of discs). Moderate to severe aortic valve regurgitation is present. Moderate mitral regurgitation is present. Significant tricuspid regurgitation is absent. Compared to theprior study dated 03/19/2021, there has been no significant interval change EKG October 12, 2022, sinus rhythm at 77 bpm with a first-degree AV block, left axis deviation, nonspecific ST change. ASSESSMENT: Mixed valvular heart disease, aortic and mitral insufficiency Preserved LV systolic function Labile hypertension Chronic venous insufficiency, longstanding history of peripheral edema, history of DVT x 2, bakers cyst, chronic hip issues. Volume status: Acceptable/compensated. History of syncope in 2004 as well as on March 27, 2019, probable vasovagal syncope/orthostatic hypotension. Renal dysfunction, stage III chronic kidney disease, followed by [facility] Nephrology History of deep vein thrombosis and pulmonary embolism, prescribed chronic anticoagulation. Chronic obstructive pulmonary disease Sleep apnea, CPAP therapy. 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 Gastroesophageal reflux disease Dyslipidemia. LDL 85 mg/dL on 06/22/2023 Hypothyroidism Psoriasis, psoriatic arthropathy RECOMMENDATIONS/PLAN: Via shared decision making, will continue as prescribed, continuing the current five drug antihypertensive regimen without change. Continue conservative management for the mixedvalvular heart disease. Routine cardiology follow-up. ER with emergencies. Kaden Francis PA-C Department of Cardiology This chart was completed in part utilizing [employer] Speech Voice Recognition Software. Grammatical errors, random word insertions, prounoun errors, and incomplete sentences are an occasional consequence of this system due to software limitations, ambient noise, and hardware issues. Any formal questions or concerns about the content, text, or information contained within the body of this dictation should be directly addressed to the provider for clarification. documented in this encounter Nursing Notes * Zak Gaming LPN - 08/09/2023 1:26 PM EST Patient identified by full name and date of Chief Complaint Patient presents with Follow Up 9 month follow up. SOB with steps and inclines but no worse then prior. Dizziness from ear issue but uses meclizine. Right LE edema about the same. Denies chest pain and palpitations. Examination Room: 2 Name: Armani Woods Date of : (1935). Reason for Visit: 9 month follow up Interim Hospitalization(s): [facility] ED 03/13/23 Problems/Concerns: See chief complaint Chest Pain/SOB: See chief complaint [facility] Discussed: Yes [facility] is a way you can talk to your provider online through e-mail. Would you like to sign up? I can activate it for you? ALREADY ACTIVE Patient was instructed to not get up on the exam table until directed and assisted by their provider; patient is to remain seated in the chair/ wheelchair/ exam table for fall prevention and safety reasons. Patient is aware to have assistance to step down off exam table with personnel. Patient voiced full comprehension of instructions. ' documented in this encounter Plan of Treatment Upcoming Encounters Date Type Department Care Team (Late st Contact Info) Description 09/20/2023 3:30 PM EST Office Visit Sleep Disorders Ctr [facility] [address] [facility] [place] [address] Kitty Frost CRNP [address] [place] [address] 09/25/2023 10:30 AM EST Office Visit Orthopaedics [facility] [address] [facility] [place] [address] Yrn Gutierrez MD [address] [facility] [place] [address] 10/02/2023 11:20 AM EST Office Visit Family Practice [address] [place] [address] 293 [place] [address] Anamaria Allison DO 293 [place] [address] 02/09/2024 2:00 PM EDT Office Visit Cardiology, [facility] [place] [address] Kaden Francis PA-C 132 [place] [address] 03/28/2024 2:40 PM EDT Office Visit Nephrology, [facility] [address] [place] [address] Ethan Gama MD [address] [place] [address] 04/08/2024 1:40 PM EDT Telemedicine Neurosurgery, [place] [address] [place], [place] [id number] Will Donaldson PA-C [address] [place], [place] [phone] 06/05/2024 10:45 AM EDT Office Visit Urology Jayesh Faith [address] [place] [address] [place] [address] Param Haines Jr., MD [address] [place] [address] [place] [address] Health Maintenance Due Date Last Done Comments *BISPHONATE OR OTHER ACCEPTABLE MEDICATION NEEDED FOR OSTEOPOROSIS (REFER TO SMARTSET #1146) 10/01/2022 COVID-19 Vaccine ( season) 2023 08/18/2021, 12/01/2020, 11/10/2020 Albumin/Creatinine Ratio 03/16/2024 023, 05/24/2022, 11/25/2021, Additional history exists CKD HGB USE SMARTSET 57866 03/16/202403/16, 03/16/2023, 05/24/2022, Additional history exists CKD PHOS USE SMARTSET 93845 03/16/2024 07/0 02/2023, 02/18/2022, 05/06/2021, Additional history [...] D LEVEL ONCE IN A LIFETIME-USE SMARTSET# 36737 Completed 03/16/2023, 05/24/2022, 07/02/2020, Additional history exists [...] as of this encounter Visit Diagnoses Diagnosis Nonrheumatic aortic valve insufficiency- Primary Aortic valve disorders HTN, goal below 150/90 Nonrheumatic mitral valve regurgitation Dyslipidemia, goal LDL below 100 Other and unspecified hyperlipidemia History of pulmonary embolism Personal history of pulmonary embolism VELAZQUEZ (dyspnea on exertion) Other dyspnea and respiratory abnormality Chronic kidney disease, stage 3b (HCC) documented in this encounter Advance Directives Documents on File Type Date Recorded Patient Biztalk Consultant Expl anation Advance Directives and Living Will 04/09/2012 LIVING WILL DECLARAT ION - LIVING WILL Latest Code Status on File Code Status Date Activated Date Inactivated Comments Full Code 12/10/2007 8:45 AM 12/10/2007 3:42 PM Care Teams Certified Professional Controller Relationship Specialty Start Date End Date Anamaria Allison DO [address] [place] [address] PCP - General Family Medicine 10/26/22 documented as of this encounter"
--- OUTSIDE RECORDS SUMMARY | 2023-12-23 14:48 | External Medical Summary | Summary of Care ---
Author Name Unknown Organization [facility] Address [address] [place] [address] Phone [phone] Care Team Providers Care Instructor Physical Education Name Role Phone Anamaria Richards DO Primary Care Provider Reason for Visit * Reason Comments Medication Refill Encounter Details Date Type Department Care Team (Late st Contact Info) Description 07/24/2023 Refill Family Practice [address] [facility] [address] [place] [address] Anamaria Richards DO [address] [place] [address] Vertigo Allergies Active Allergy Reactions Criticality Noted Date Comments Edgar Inhibitors Cough 12/30/2011 Sulfa Antibiotics Unknown 01/03/2019 documented as of this encounter (statuses as of 07/24/2023) Medications Medication Sig Dispensed Refills Start Date [...] when active 1 Each 0 02/13/2023 Active Fluticasone-Umeclid in-Vilant 100-62.5-25 MCG/ACT Aerosol Powder Breath Activated (Trelegy Ellipta)Indications :Moderate persistent asthma without complication INHALE ONE PUFF BY MOUTH EVERY MORNING 180 Each 3 10/06/2022 4 Active Levothyroxine Sodium 137 MCG Oral TabletIndications:H [...] FOR DIZZINESS 90 Tablet 5 07/24/2023 Active Meclizine HCl 25 MG Oral Tablet (Antivert)Indicatio ns:Vertigo TAKE ONE TABLET BY MOUTH THREE TIMES A DAY NEEDED FOR DIZZINESS 90 Tablet 3 03/02/2023 3 Discontinu ed(Refill) Hospital, Clinic, or Other Facility [...] as of this encounter (statuses as of 07/24/2023) Active Problems Problem Noted Date Diagnosed Date [...] as of this encounter (statuses as of 07/24/2023) Resolved Problems Problem Noted Date Diagnosed Date Resolved Date 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 11/14/2018 07/23/2020 Overview: Per CKD protocol Hip fracture, right 10/31/2014 11/26/19 17 Overview: 1/28/15 fell on ice, ORIF HTN, goal below 130/80 09/16/201312/10 Kidney disease, chronic, sta ge III (GFR 30-59 ml/min) 08/15/2013 11/20/2018 Hand joint pain 12/07/2007 05/20/2016 Pulmonary embolus 08/16/2005 11/25/2016 BENIGN NEOPLASM LG BOWEL 08/16/200502/2019 Overview: Colonoscopy 08/23/06--adenomatous polyps--repeat 1 year Hematuria 08/16/2005 04/10/2007 Overview: 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 current use of ant icoagulant [...] as of this encounter (statuses as of 07/24/2023) Immunizations Name Administration Dates Next Due COVID-19 mRNA, LNP-s, No Pre serve, 2-Dose Series ([employer]) 08/18/2021,12/01/2020,11/10/2020 Hepatitis B, 20+ yrs 07/07/1992,02/24/1992,01/21 PPD [...] Miscellaneous Notes * Telephone Encounter - Anamaria Richards DO - 07/24/2023 5:21 PM ESTSigned Prescriptions: Disp Refills Meclizine HCl 25 MG Oral Tablet (Antivert) 90 Tab*5 Sig: TAKE ONE TABLET BY MOUTH THREE TIMES A DAY NEEDED FOR DIZZINESS Authorizing Provider: ANAMARIA RICHARDS * Telephone Encounter - Marifer Perez [facility] - 07/24/2023 3:49 PM ESTPending Prescriptions: Disp Refills Meclizine HCl 25 MG Oral Tablet (Antivert) 90 Tab*5 Sig: TAKE ONE TABLET BY MOUTH THREE TIMES A DAY NEEDED FOR DIZZINESS * Telephone Encounter - Marifer Perez [facility] - 07/24/2023 3:49 PM EST Pending Prescriptions: Disp Refills Meclizine HCl 25 MG Oral Tablet (Antivert) 90 Tab*5 Sig: TAKE ONE TABLET BY MOUTH THREE TIMES A DAY NEEDED FOR DIZZINESS 06/22/2023 (in office), Visit date not found (telemedicine) 07/27/2023 If no future appointments scheduled, and last appointment is greater than a year ago, please schedule patient for a follow-up appointment Last date the medication was ordered: 03/02/23 Pharmacy: [facility] Is this request for a controlled substance?No Urine Drug Screen:No results found. However, due to the size of the patient record, not all encounters were searched. Please check Results Review for a complete set of results. Patient Phone Numbers Labs: Lab Results Component Value Date/Time CREAT 1.3 (H) 06/22/2023 11:35 AM CREAT 1.29 02/18/2022 12:00 AM CREAT 1.6 (H) 09/05/2020 11:54 AM POTASSIUM 4.8 06/22/2023 11:35 AM POTASSIUM 4.0 02/18/2022 12:00 AM POTASSIUM 4.7 01/02/2020 01:57 PM TSH 1.17 03/16/2023 10:50 AM TSH 0.390 02/18/2022 12:00 AM TSH 0.17 (L) 07/02/2020 11:03 AM LDLCALC 85 06/22/2023 11:35 AM LDLCALC 81 07/02/2020 11:03 AM LDLDIRECT NOT APPLICABLE 07/02/2020 11:03 AM LDLDIRECT 90 11/25/2016 11:19 AM ALT 28 06/22/2023 11:35 AM ALT 18 09/18/2019 02:46 PM HGBA1C 5.6 06/22/2023 11:35 AM documented in this encounter Plan of Treatment Upcoming Encounters Date Type Department Care Team (Late st Contact Info) Description 07/27/2023 2:20 PM EST Office Visit Family Practice [address] [facility] [place] 293 [place] [address] Anamaria Richards DO [address] [facility] [address] 09/20/2023 3:30 PM EST Office Visit Sleep Disorders Ctr [facility] 132 [place] [address] Kitty Frost CRNP 132 [place] [address] 09/25/2023 10:30 AM EST Office Visit [facility] 132 [place] [address] Yrn Gutierrez MD 132 [place] [address] 10/02/2023 11:20 AM EST Office Visit Family Practice [address] [place] [address] 293 [place] [address] Anamaria Richards, DO 293 [place] [address] 10/25/2023 1:00 PM EST Office Visit [facility] [place] [address] Kaden Francis PAKash 132 [place] [address] 03/28/2024 2:40 PM EDT Office Visit Nephrology, [facility] [address] [place], [place] [address] Ethan Gama MD [address] [place] [address] 04/08/2024 1:40 PM EDT Telemedicine Neurosurgery, [place] [address] [place], [place] [phone] Will Donaldson PA-C [address] [place] [address] 06/05/2024 10:45 AM EDT Office Visit Urology Jayesh Faith [address] [place] [address] [place] [address] Param Haines Jr., MD [address] [place] [address] [place] [address] Health Maintenance Due Date Last Done Comments *BISPHONATE OR OTHER ACCEPTABLE MEDICATION NEEDED FOR OSTEOPOROSIS (REFER TO SMARTSET #1146) 10/01/2022 COVID-19 Vaccine ( season) 2023 08/18/2021, 12/01/2020, 11/10/2020 Albumin/Creatinine Ratio 03/16/2024 023, 05/24/2022, 11/25/2021, Additional history exists CKD HGB USE SMARTSET 73429 03/16/202403/16, 03/16/2023, 05/24/2022, Additional history exists CKD PHOS USE SMARTSET 29394 03/16/2024 07/02/2023, 02/18/2022, 05/06/2021, Additional history exists [...] D LEVEL ONCE IN A LIFETIME-USE SMARTSET# 87394 Completed 03/16/2023, 05/24/2022, 07/02/2020, Additional history exists [...] as of this encounter Visit Diagnoses Diagnosis Vertigo Dizziness and giddiness documented in this encounter Advance Directives Documents on File Type Date Recorded Patient Manager Game Expl anation Advance Directives and Living Will 04/09/2012 LIVING WILL DECLARAT ION - LIVING WILL Latest Code Status on File Code Status Date Activated Date Inactivated Comments Full Code 12/10/2007 8:45 AM 12/10/2007 3:42 PM Care Teams Instructor Physical Education Relationship Specialty Start Date End Date Anamaria Richards DO [address] [place] [address] PCP - General Family Medicine 10/26/22 documented as of this encounter
--- OUTSIDE RECORDS SUMMARY | 2023-12-23 14:48 | External Medical Summary | Summary of Care ---
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 current use of ant icoagulant therapy 08/11/2005 [...] mRNA, LNP-s, No Pre serve, 2-Dose Series ([employer]) 08/18/2021,12/01/2020,11/10/2020 Hepatitis B, 20+ yrs 07/07/1992,02/24/1992,01/21 PPD [...] 09/25/2023 10:30 AM EST Office Visit Orthopaedics [facility] 132 [facility] [place] [address] Yrn Gutierrez MD 132 [facility] [place] [address] 10/02/2023 11:20 AM EST Office Visit Family Practice [address] [place] [address] 293 [place] [address] Anamaria Allison DO 293 [facility] [address] 02/09/2024 2:00 PM EDT Office Visit Cardiology, [facility] [place] [address] Kaden Francis PAKash [facility] [place] [address] 03/28/2024 2:40 PM EDT Office Visit Nephrology, [place] [address] [place] [address] Ethan Gama MD [address] [place] [address] 04/08/2024 1:40 PM EDT Telemedicine Neurosurgery, [place] [address] [place], [place] [phone] Will Donaldson PA-C [address] [place], [place] [phone] 06/05/2024 10:45 AM EDT Office Visit Urology [place] Chaves [address] [place] [address] [place] [address] Yancy Chen, Param Lemons MD [address] [place] [address] [place] [address] Health Maintenance Due Date Last Done Comments *BISPHONATE OR OTHER ACCEPTABLE MEDICATION NEEDED FOR OSTEOPOROSIS (REFER TO SMARTSET #1146) 10/01/2022 COVID-19 Vaccine ( season) 2023 08/18/2021, 12/01/2020, 11/10/2020 Albumin/Creatinine Ratio 03/16/2024 023, 05/24/2022, 11/25/2021, Additional history exists CKD HGB USE SMARTSET 65762 03/16/202403/16, 03/16/2023, 05/24/2022, Additional history exists CKD PHOS USE SMARTSET 77904 03/16/2024 07/0 02/2023, 02/18/2022, 05/06/2021, Additional history [...] D LEVEL ONCE IN A LIFETIME-USE SMARTSET# 55036 Completed 03/16/2023, 05/24/2022, 07/02/2020, Additional history exists [...] Documents on File Type Date Recorded Patient Brakeshoe Repairer Expl anation Advance Directives and Living Will 04/09/2012 LIVING WILL DECLARAT ION - LIVING WILL Latest Code Status on File Code Status Date Activated Date Inactivated Comments Full Code 12/10/2007 8:45 AM 12/10/2007 3:42 PM Care Teams Steel Wheel Engraver Relationship Specialty Start Date End Date Anamaria Allison DO 293 [facility] [address] PCP - General Family Medicine 10/26/22 documented as of this encounter
--- OUTSIDE RECORDS SUMMARY | 2023-12-23 14:49 | External Medical Summary | Summary of Care ---
Author Name Unknown Organization [facility] Address [address] [place] [address] Phone [phone] Care Team Providers Care Health Safety Instructor Name Role Phone Anamaria Allison DO Primary Care Provider Reason for Visit * Reason Onset Date Comments Information 06/22/2023 Encounter Details Date Type Department Care Team (Late st Contact Info) Description 06/22/2023 Telephone Family Practice 65 [facility] [address] [place] [address] Anamaria Allison DO 293 [place] [address] Information Allergies Active Allergy Reactions Criticality Noted Date Comments Edgar Inhibitors Cough 12/30/2011 Sulfa Antibiotics Unknown 01/03/2019 documented as of this encounter (statuses as of 07/03/2023) Medications Medication Sig Dispensed Refills Start Date [...] Monday only. 42 Capsule 3 06/07/2023 Active Metoprolol Succinate ER 25 MG Oral Tablet Extended Release 24 Hour (toPROL XL)Indications:HTN, goal below 150/90 Take 1.5 Tablets by mouth in the morning. TABS MAY BE CUT, DO NOT CRUSH OR CHEW. 150 Tablet 2 06/07/2023 Active Terazosin HCl 2 MG Oral [...] of Breath. 1080 mL 1 06/07/2023 Active Hospital, Clinic, or Other Facility Administered [...] as of this encounter (statuses as of 07/03/2023) Active Problems Problem Noted Date Diagnosed Date [...] as of this encounter (statuses as of 07/03/2023) Resolved Problems Problem Noted Date Diagnosed Date [...] Overview: ICD-10 update of inactive term terminal carman current use of ant icoagulant therapy 08/11/2005 [...] as of this encounter (statuses as of 07/03/2023) Immunizations Name Administration Dates Next Due COVID-19 mRNA, LNP-s, No Pre serve, 2-Dose Series ([employer]) 08/18/2021,12/01/2020,11/10/2020 Hepatitis B, 20+ yrs 07/07/1992,02/24/1992,01/21 PPD [...] encounter Miscellaneous Notes * Telephone Encounter - Mell Yu LPN - 06/29/2023 9:12 AM EDT New order has been submitted to * Telephone Encounter - IBIS Cho - 06/28/2023 4:47 PM EDT New order placed. * Telephone Encounter - Mell Yu LPN - 06/28/2023 4:08 PM EDT Per [facility] the order for the NPO was cx by the DME because is was delayed at the DME d/t lack of staff. Please re order the NPO. Verna at [facility] will watch site and get the unit delivered this week. * Telephone Encounter - Leslie Esparza DO - 06/27/2023 11:40 AM EDT This might be referring to the [facility]. I do not see any notes about the report from this study having been received. Sleep Nurse, can we track this down and forward to Kitty when available? * Telephone Encounter - Denise Torre LPN - 06/22/2023 11:04 AM EDT Patient in for office visit today, states he had sleep study in April, has not heard any results. Please reach out to patient with results. Thank you documented in this encounter Plan of Treatment Upcoming Encounters Date Type Department Care Team (Late st Contact Info) Description 07/17/2023 2:00 PM EST Nurse Only Ancillary 65 [facility] 293 [facility] [place] [address] College, Nurse Annual Wellness Visit [address] [place] [address] 09/20/2023 3:30 PM EST Office Visit Sleep Disorders Ctr [facility] 132 [facility] [place] [phone] Kitty Frost CRNP 132 [facility] [place] [address] 09/25/2023 10:30 AM EST Office Visit Orthopaedics [facility] 132 [facility] [place] [address] Yrn Gutierrez MD [address] [facility] [place] [address] 10/02/2023 11:20 AM EST Office Visit Family Practice [address] [place] [address] 293 [facility], [place] [address] Anamaria Allison DO 293 [place] [address] 10/25/2023 1:00 PM EST Office Visit Cardiology, [facility] [place] [address] Kaden Francis PA-C [facility] [place] [address] 03/28/2024 2:40 PM EDT Office Visit Nephrology, [place] 200 [place] [address] Ethan Gama MD 200 [facility] [place], [place] [address] 04/08/2024 1:40 PM EDT Telemedicine Neurosurgery, [place] [address] [place] [address] Will Donaldson PA-C [address] [place], [place] [phone] 06/05/2024 10:45 AM EDT Office Visit Urology Jayesh Faith [address] [place] [address] [place] [address] Param Haines Jr., MD [address] [place] [address] [place] [phone] Scheduled Orders Name Type Priority Associated Diagnoses Orde r Schedule NOCTURNAL HOME OXIMETRY (OP) Procedures Routine MARC (obstructive sleep apnea) Nocturnal hypoxemia Ordered: 06/28/2023 Health Maintenance Due Date Last Done Comments *BISPHONATE OR OTHER ACCEPTABLE MEDICATION NEEDED FOR OSTEOPOROSIS (REFER TO SMARTSET #1146) 10/01/2022 COVID-19 Vaccine ( season) 2023 08/18/2021, 12/01/2020, 11/10/2020 Albumin/Creatinine Ratio 03/16/20242 023, 05/24/2022, 11/25/2021, Additional history exists CKD HGB USE SMARTSET 36162 03/16/202403/16, 03/16/2023, 05/24/2022, Additional history exists CKD PHOS USE SMARTSET 86140 03/16/2024 07/0 02/2023, 02/18/2022, 05/06/2021, Additional history [...] D LEVEL ONCE IN A LIFETIME-USE SMARTSET# 71239 Completed 03/16/2023, 05/24/2022, 07/02/2020, Additional history exists [...] apnea)- Primary Obstructive sleep apnea (adult) (pediatric) Nocturnal hypoxemia Hypoxemia documented in this encounter Advance Directives Documents on File Type Date Recorded 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
--- OUTSIDE RECORDS SUMMARY | 2023-12-23 14:49 | External Medical Summary | Summary of Care ---
Author Name Unknown Organization [facility] Address [address] [place] [address] Phone [phone] Care Team Providers Care Dough Maker Name Role Phone Yesikawinter Anamariadon Rodriguez DO Primary Care Provider [phone] Reason for Visit * Reason Comments eRx-Medication Refill Encounter Details Date Type Department Care Team (Late st Contact Info) Description 07/11/2023 Refill Family Practice [facility] [place] [address] Shantelle Turpin MD [address] [place] [address] HTN, goal below 150/90 Allergies Active Allergy [...] EVERY DAY 90 Tablet 3 2 Active Triamcinolone Acetonide 0.1 % External Cream (Aristocort) APPLY TOPICALLY TO AFFECTED AREA 2 TIMES A DAY. TO AFFECTED AREA. FOR PSORIASIS 80 g 5 2 Active CPAP every night at bedtime . 0 Active Eucerin External Cream Apply topically to affected area as needed for Dry Skin. Apply to psoriasis areas 0 Active Knee Brace/Hinged Bars MediumIndications:C hronic pain of right knee,Primary osteoarthritis of one knee, right Wear daily when active 1 Each 0 3 Active Meclizine HCl 25 MG Oral Tablet (Antivert)Indicatio ns:Vertigo TAKE ONE TABLET BY MOUTH THREE TIMES A DAY NEEDED FOR DIZZINESS 90 Tablet 3 3 03/01/20 24 Active Additional Information Patient taking differently: Take 2 tablets in the morning, Reported on 06/05/2023 Fluticasone-Umeclid in-Vilant 100-62.5-25 MCG/ACT Aerosol Powder Breath Activated (Trelegy Ellipta)Indications :Moderate persistent asthma without complication INHALE ONE PUFF BY MOUTH EVERY MORNING 180 Each 3 3 10/06/19 24 Active Levothyroxine Sodium 137 MCG Oral TabletIndications:H [...] the morning. 100 Tablet 2 3 Active hydroCHLOROthiazide 12.5 MG Oral Capsule (Hydrodiuril)Indica tions:HTN, goal below 150/90 Take 1 Capsule by mouth once a day on Monday, Monday, and Monday only. 42 Capsule 3 3 Active Terazosin HCl 2 MG Oral CapsuleIndications: HTN, goal below 150/90 Take 1 Capsule by mouth daily. 100 Capsule 2 3 Active Rivaroxaban 15 MG Oral Tablet (Xarelto)Indication s:Atrial flutter, unspecified type (HCC) Take 1 Tablet by mouth daily with dinner. 100 Tablet 2 3 Active Ipratropium-Albuter ol 0.5-2.5 (3) MG/3ML Inhalation [...] OR CHEW. 135 Tablet 3 3 Active Metoprolol Succinate ER 25 MG Oral Tablet Extended Release 24 Hour (toPROL XL)Indications:HTN, goal below 150/90 Take 1.5 Tablets by mouth in the morning. TABS MAY BE CUT, DO NOT CRUSH OR CHEW. 150 Tablet 2 3 07/12/20 23 Discontinued Hospital, Clinic, or Other Facility Administered [...] mRNA, LNP-s, No Pre serve, 2-Dose Series (Fillm) 08/18/2021,12/01/2020,11/10/2020 Hepatitis B, 20+ yrs 07/07/1992,02/24/1992,01/21 PPD [...] encounter Miscellaneous Notes * Telephone Encounter - Sal Medley [facility] - 07/12/2023 2:55 AM EDTSigned Prescriptions: Disp Refills Metoprolol Succinate ER 25 MG Oral Tablet *135 Ta*3 Sig: TAKE 1.5 TABLETS BY MOUTH DAILY IN THE MORNING. TABS MAY BE CUT, DO NOT CRUSH OR CHEW.Authorizing Provider: ANAMARIA RICHARDS User: SAL MEDLEY documented in this encounter Plan of Treatment Upcoming Encounters Date Type Department Care Team (Late st Contact Info) Description 09/20/2023 3:30 PM EST [facility] [address] [place] [phone] Kitty Frost CRNP 132 [place] [address] 09/25/2023 10:30 AM EST Office Visit Orthopaedics [facility] 132 [place] [address] Yrn Gutierrez MD 132 [place] [address] 10/02/2023 11:20 AM EST Office Visit Family Practice [address] [place] [address] 293 [facility] [place] [address] Anamaria Richards DO 293 [place] [address] 10/25/2023 1:00 PM EST Office Visit Cardiology, [facility] 132 [employer] [place], [place] [address] Kaden Francis PAKash 132 [facility] [address] 03/28/2024 2:40 PM EDT Office Visit Nephrology, [facility] 200 [place] [address] Ethan Gama MD 200 [place] [address] 04/08/2024 1:40 PM EDT Telemedicine Neurosurgery, [place] [address] [place], [place] [phone] Will Donaldson PA-C [address] [place], [place] [phone] 06/05/2024 10:45 AM EDT Office Visit Urology Jayesh Faith [address] [place] [address] [place] [address] Param Haines Jr., MD [address] [place] [address] [place] [phone] Health Maintenance Due Date Last Done Comments *BISPHONATE OR OTHER ACCEPTABLE MEDICATION NEEDED FOR OSTEOPOROSIS (REFER TO SMARTSET #1146) 10/01/2022 COVID-19 Vaccine ( season) 2023 08/18/2021, 12/01/2020, 11/10/2020 Albumin/Creatinine Ratio 03/16/2024 023, 05/24/2022, 11/25/2021, Additional history exists CKD HGB USE SMARTSET 60067 03/16/202403/16, 03/16/2023, 05/24/2022, Additional history exists CKD PHOS USE SMARTSET 60348 03/16/2024 07/0 02/2023, 02/18/2022, 05/06/2021, Additional history [...] D LEVEL ONCE IN A LIFETIME-USE SMARTSET# 84260 Completed 03/16/2023, 05/24/2022, 07/02/2020, Additional history exists [...] Documents on File Type Date Recorded 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
--- OUTSIDE RECORDS SUMMARY | 2023-12-23 14:49 | External Medical Summary | Summary of Care ---
Author Name Unknown Organization [facility] Address [address] [place] [address] Phone [phone] Care Team Providers Care Supply Person Name Role Phone YesikaAnamaria max Jennifer CHÁVEZ Primary Care Provider Reason for Visit * Reason Onset Date Comments Oxygen Assessment 04/19/2023 NPO Encounter Details Date Type Department Care Team (Late st Contact Info) Description 04/19/2023 Telephone Sleep Disorders Ctr [facility] 132 [facility] [place] [phone] Kitty Frost CRNP 132 [facility] [place] [address] Oxygen Assessment (NPO) Allergies Active Allergy Reactions Criticality Noted Date [...] psoriasis areas 0 Active Knee Brace/Hinged Bars MediumIndications: Chronic pain of right knee,Primary osteoarthritis of one knee, right Wear daily when active 1 Each 0 3 Active Meclizine HCl 25 MG Oral Tablet (Antivert)Indicati ons:Vertigo TAKE ONE TABLET BY MOUTH THREE TIMES A DAY NEEDED FOR DIZZINESS 90 Tablet 3 3 024 Active Additional Information Patient taking differently: Take 2 tablets in the morning, Reported on 06/05/2023 Fluticasone-Umecli din-Vilant 100-62.5-25 MCG/ACT Aerosol Powder Breath Activated (Trelegy Ellipta)Indication s:Moderate persistent asthma without complication INHALE ONE PUFF BY MOUTH EVERY MORNING 180 Each 3 3 024 Active Ipratropium-Albute rol 0.5-2.5 (3) MG/3ML Inhalation Solution (Duoneb)Indication s:Cough Inhale 3 mL via nebulizer every 6 hours as needed for Congestion or Shortness of Breath. 1080 mL 1 1 023 Discontinued(Re fill) Terazosin HCl 2 MG Oral CapsuleIndications :HTN, goal below 150/90 TAKE 1 CAPSULE BY MOUTH EVERY DAY 90 Capsule 3 2 023 Discontinued Losartan Potassium 100 MG Oral Tablet (Cozaar)Indication s:HTN, goal below 150/90 TAKE 1 TABLET BY MOUTH EVERY DAY 90 Tablet 3 2 023 Discontinued Levothyroxine Sodium 137 MCG Oral TabletIndications: Hypothyroidism, unspecified type Take by mouth 1 Tablet in the morning. (at least 30 min prior to breakfast or other meds). 90 Tablet 3 2 023 Discontinued(Re fill) Metoprolol Succinate ER 25 MG Oral Tablet Extended Release 24 Hour (toPROL XL)Indications:HTN , goal below 150/90 TAKE 1.5 TABLETS BY MOUTH DAILY. IN THE MORNING. TABS MAY BE CUT, DO NOT CRUSH OR CHEW. 135 Tablet 3 2 023 Discontinued(Re fill) hydroCHLOROthiazid e 12.5 MG Oral Capsule (Hydrodiuril)Indic ations:HTN, goal below 150/90 Take 1 Capsule by mouth once a day on Monday, Monday, and Monday only. 39 Capsule 3 3 023 Discontinued(Re fill) Atorvastatin Calcium 40 MG Oral Tablet (Lipitor) TAKE 1 TABLET BY MOUTH EVERY DAY 90 Tablet 1 3 023 Discontinued(Re fill) Finasteride 5 MG Oral Tablet (Proscar) TAKE ONE TABLET BY MOUTH EVERY MORNING 90 Tablet 3 3 023 Discontinued(Re fill) Rivaroxaban 15 MG Oral Tablet (Xarelto)Indicatio ns:Atrial flutter, unspecified type (HCC) TAKE ONE TABLET BY MOUTH EVERY DAY WITH DINNER 90 Tablet 3 3 023 Discontinued amLODIPine Besylate 2.5 MG Oral Tablet (Norvasc) TAKE 1 TABLET BY MOUTH EVERY DAY IN THE MORNING 90 Tablet 3 3 023 Discontinued(Re fill) Hospital, Clinic, or Other Facility Administered Medication [...] Telephone Encounter - Mell Yu LPN - 07/12/2023 10:42 AM EDT NPO report received and given to provider for review Results have been scanned into the chart for review * Telephone Encounter - Mell Yu LPN - 04/19/2023 10:54 AM EDT Order has been sent to documented in this encounter Plan of Treatment Upcoming Encounters Date Type Department Care Team (Late st Contact Info) Description 09/20/2023 3:30 PM EST Office Visit Sleep Disorders Ctr [facility] 132 [facility] [place] [phone] Kitty Frost CRNP [facility] [place] [address] 09/25/2023 10:30 AM EST Office Visit Orthopaedics [facility] 132 [facility] [place] [address] Yrn Gutierrez MD 132 [facility] [place] [address] 10/02/2023 11:20 AM EST Office Visit Family Practice [address] [place] [address] 293 [facility] [place] [phone] Anamaria Allison DO 293 [place] [address] 10/25/2023 1:00 PM EST Office Visit Cardiology, [facility] 132 [facility] [place] [address] Kaden Francis [facility]C [facility] [address] 03/28/2024 2:40 PM EDT Office Visit Nephrology, [facility] 200 [facility] [place] [address] Ethan Gama MD 200 [facility] [place] [address] 04/08/2024 1:40 PM EDT Telemedicine Neurosurgery, [place] 100 [address] [facility] [place] [phone] Will Donaldson PA-C 100 [address] [facility] [place] [address] 06/05/2024 10:45 AM EDT Office Visit Urology Jayesh Faith [address] [facility] [address] [place] [address] Param Haines Jr., MD [address] [place] [address] [place] [address] Health Maintenance Due Date Last Done Comments *BISPHONATE OR OTHER ACCEPTABLE MEDICATION NEEDED FOR OSTEOPOROSIS (REFER TO SMARTSET #1146) 10/01/2022 COVID-19 Vaccine ( season) 2023 08/18/2021, 12/01/2020, 11/10/2020 Albumin/Creatinine Ratio 03/16/2024 023, 05/24/2022, 11/25/2021, Additional history exists CKD HGB USE SMARTSET 99566 03/16/202403/16, 03/16/2023, 05/24/2022, Additional history exists CKD PHOS USE SMARTSET 21365 03/16/2024 07/02/2023, 02/18/2022, 05/06/2021, Additional history exists [...] D LEVEL ONCE IN A LIFETIME-USE SMARTSET# 32170 Completed 03/16/2023, 05/24/2022, 07/02/2020, Additional history exists [...] Documents on File Type Date Recorded 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
--- OUTSIDE RECORDS SUMMARY | 2023-12-23 14:49 | External Medical Summary | Summary of Care ---
Author Name Unknown Organization [facility] Address [address] [place] [address] Phone [phone] Care Team Providers Care Spreader Box Operator Name Role Phone YesikaAnamaria max Jennifer CHÁVEZ Primary Care Provider Reason for Visit * Reason Onset Date Comments Oxygen Assessment 04/19/2023 NPO Encounter Details Date Type Department Care Team (Late st Contact Info) Description 04/19/2023 Telephone Sleep Disorders Ctr [facility] 132 [facility] [place] [phone] Kitty Frost CRNP 132 [facility] [place] [address] Oxygen Assessment (NPO) Allergies Active Allergy Reactions [...] PM EST Office Visit Sleep Disorders Ctr [facility] 132 [facility] [place] [phone] Kitty Frost CRNP [facility] [place] [address] 09/25/2023 10:30 AM EST Office Visit Orthopaedics [facility] 132 [facility] [place] [address] Yrn Gutierrez MD 132 [facility] [place] [address] 10/02/2023 11:20 AM EST Office Visit Family Practice [address] [place] [address] 293 [place] [phone] Anamaria Allison DO 293 [facility] [place] [address] 10/25/2023 1:00 PM EST Office Visit Cardiology, [facility] 132 [facility] [place] [address] Kaden Francis PA-C 132 [facility] [address] 03/28/2024 2:40 PM EDT Office Visit Nephrology, [facility] 200 [facility] [place] [address] Ethan Gama MD 200 [facility] [place] [address] 04/08/2024 1:40 PM EDT Telemedicine Neurosurgery, [place] [address] [facility] [place] [phone] Will Donaldson PA-C [address] [facility] [place] [address] 06/05/2024 10:45 AM EDT Office Visit Urology Jayesh Faith [address] [facility] [address] [place] [address] Param Haines Jr., MD [address] [place] [address] [place] [address] Health Maintenance Due Date Last Done Comments *BISPHONATE OR OTHER ACCEPTABLE MEDICATION NEEDED FOR OSTEOPOROSIS (REFER TO SMARTSET #1146) 10/01/2022 COVID-19 Vaccine ( season) 2023 08/18/2021, 12/01/2020, 11/10/2020 Albumin/Creatinine Ratio 03/16/2024 023, 05/24/2022, 11/25/2021, Additional history exists CKD HGB USE SMARTSET 84597 03/16/202403/16, 03/16/2023, 05/24/2022, Additional history exists CKD PHOS USE SMARTSET 48530 03/16/2024 07/02/2023, 02/18/2022, 05/06/2021, Additional history exists [...] D LEVEL ONCE IN A LIFETIME-USE SMARTSET# 32960 Completed 03/16/2023, 05/24/2022, 07/02/2020, Additional history exists [...] on File Type Date Recorded 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
--- OUTSIDE RECORDS SUMMARY | 2023-12-23 14:49 | External Medical Summary | Summary of Care ---
Author Name Unknown Organization [facility] Address [address] [place] [address] Phone [phone] Care Team Providers Care Continuity Editor Name Role Phone YesikaNancy maxdon Rodriguez DO Primary Care Provider [phone] Reason for Visit * Reason Onset Date Comments Oxygen Assessment 07/12/2023 Overnight oxim etry Encounter Details Date Type Department Care Team (Late st Contact Info) Description 07/12/2023 Telephone Sleep Disorders Ctr [facility] [place] [phone] Kitty Frost CRNP [address] [facility] [place] [address] Oxygen Assessment (Overnight oximetry) Allergies Active Allergy [...] 04/10/2007 Overview: ICD-10 update of inactive term USP current use of ant icoagulant therapy 08/11/2005 [...] mRNA, LNP-s, No Pre serve, 2-Dose Series (CrossReader) 08/18/2021,12/01/2020,11/10/2020 Hepatitis B, 20+ yrs 07/07/1992,02/24/1992,01/21 PPD [...] encounter Miscellaneous Notes * Telephone Encounter - Kitty Frost CRNP - 07/12/2023 10:59 AM EDT Noct ox 07/07/2023: aPAP 12-17 cwp- SpO2 naomi 86% with 41 seconds <89%, test time 8:21 hrs, rAHI 5.9, leak 19-39 L/min (mouth leak suspected) documented in this encounter Plan of Treatment Upcoming Encounters Date Type Department Care Team (Late st Contact Info) Description 09/20/2023 3:30 PM EST Office Visit Sleep Disorders Ctr [facility] [address] [place] [phone] Kitty Frost CRNP 132 [facility] [place] [address] 09/25/2023 10:30 AM EST Office Visit Orthopaedics [facility] [address] [place] [address] Yrn Gutierrez MD [address] [place] [address] 10/02/2023 11:20 AM EST Office Visit Family Practice [address] [place] [address] [facility] [phone] Anamaria Allison DO [address] [place] [address] 10/25/2023 1:00 PM EST Office Visit Cardiology, [facility] [address] [place] [address] Kaden Francis PALauroC [address] [place] [address] 03/28/2024 2:40 PM EDT Office Visit Nephrology, [facility] [address] [facility] [place], [place] [address] Ethan Gama MD [address] [facility] [place] [address] 04/08/2024 1:40 PM EDT Telemedicine Neurosurgery, [place] [address] [place], [place] [id number] Will Donaldson PA-C [address] [place], [place] [phone] 06/05/2024 10:45 AM EDT Office Visit Urology [facility] [address] [place] [address] Param Haines Jr., MD [address] [place] [address] Health Maintenance Due Date Last Done Comments *BISPHONATE OR OTHER ACCEPTABLE MEDICATION NEEDED FOR OSTEOPOROSIS (REFER TO SMARTSET #1146) 10/01/2022 COVID-19 Vaccine ( season) 2023 08/18/2021, 12/01/2020, 11/10/2020 Albumin/Creatinine Ratio 03/16/2024 023, 05/24/2022, 11/25/2021, Additional history exists CKD HGB USE SMARTSET 78000 03/16/202403/16, 03/16/2023, 05/24/2022, Additional history exists CKD PHOS USE SMARTSET 18446 03/16/2024 07/0 02/2023, 02/18/2022, 05/06/2021, Additional history [...] D LEVEL ONCE IN A LIFETIME-USE SMARTSET# 55728 Completed 03/16/2023, 05/24/2022, 07/02/2020, Additional history exists [...] Documents on File Type Date Recorded 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
--- OUTSIDE RECORDS SUMMARY | 2023-12-23 14:49 | External Medical Summary | Summary of Care ---
Author Name Unknown Organization [facility] Address [address] [place] [address] Phone [phone] Care Team Providers Care Manager Payment Name Role Phone YesikaNancy maxdon Rodriguez DO Primary Care Provider Reason for Visit * Reason Onset Date Comments Oxygen Assessment 07/12/2023 Overnight oxim etry Encounter Details Date Type Department Care Team (Late st Contact Info) Description 07/12/2023 Telephone Sleep Disorders Ctr [facility] [place] [phone] Kitty Frost CRNP [address] [facility] [place] [address] Oxygen Assessment (Overnight oximetry) Allergies Active Allergy [...] mRNA, LNP-s, No Pre serve, 2-Dose Series ([employer]) 08/18/2021,12/01/2020,11/10/2020 Hepatitis B, 20+ yrs 07/07/1992,02/24/1992,01/21 PPD [...] PM EST Office Visit Sleep Disorders Ctr [facility] [address] [place] [phone] Kitty Frost CRNP 132 [facility] [place] [address] 09/25/2023 10:30 AM EST Office Visit Orthopaedics [facility] [address] [address] Yrn Gutierrez MD [address] [place] [address] 10/02/2023 11:20 AM EST Office Visit Family Practice [address] [place] [address] [facility] [phone] Anamaria Allison DO 293 [facility] [place] [address] 10/25/2023 1:00 PM EST Office Visit Cardiology, [facility] [address] [place] [address] Kaden Francis PALauroC [address] [place] [address] 03/28/2024 2:40 PM EDT Office Visit Nephrology, [facility] [address] [facility] [place], [place] [address] Ethan Gama MD [address] [facility] [place] [address] 04/08/2024 1:40 PM EDT Telemedicine Neurosurgery, [place] [address] [place], [place] [phone] Will Donaldson PA-C [address] [place], [place] [phone] 06/05/2024 10:45 AM EDT Office Visit Urology [facility] [address] [place] [address] Param Haines Jr., MD [address] [place] [address] Health Maintenance Due Date Last Done Comments *BISPHONATE OR OTHER ACCEPTABLE MEDICATION NEEDED FOR OSTEOPOROSIS (REFER TO SMARTSET #1146) 10/01/2022 COVID-19 Vaccine ( season) 2023 08/18/2021, 12/01/2020, 11/10/2020 Albumin/Creatinine Ratio 03/16/2024 023, 05/24/2022, 11/25/2021, Additional history exists CKD HGB USE SMARTSET 78323 03/16/202403/16, 03/16/2023, 05/24/2022, Additional history exists CKD PHOS USE SMARTSET 75610 03/16/2024 07/0 02/2023, 02/18/2022, 05/06/2021, Additional history [...] D LEVEL ONCE IN A LIFETIME-USE SMARTSET# [id number] Completed 03/16/2023, 05/24/2022, 07/02/2020, Additional history exists [...] Documents on File Type Date Recorded 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
--- NOTE | 2023-12-23 15:50 | Discharge Summary ---
Discharge Summary Date of Service December 23, 2023 Notes For Next Care Provider Medication Changes From Visit Magnesium 400mg BID Admission HPI Per Admitting Provider 88-year-old male with past medical history significant for hypothyroidism, secondary hyperparathyroidism, dyslipidemia, obstructive sleep apnea on CPAP, moderate persistent asthma, COPD, hypertension, a flutter, peripheral vascular disease, CKD stage III, BPH, psoriatic arthropathy, idiopathic scoliosis, history of vestibular schwannoma, general anxiety disorder, history of DVT and PE presents with strokelike symptoms. Patient states in the morning around 8:30 AM he noticed vision in both eyes blacking out and also tingliness in his left lower extremity it lasted a couple of minutes and resolved and it happened 1 more time in afternoon. And another time around 8 PM and all episodes lasted for couple of minutes. Currently symptoms completely resolved. Vision is okay. Denies any headache. Occasional dizziness. Has some runny nose. No sore throat. No cough. No difficulty swallowing. During episode speech was okay. Denies any chest pain. Denies shortness of breath. No nausea. No abdominal pain. Normal bowel and bladder movements. Currently resting comfortably and hemodynamically stable. Couple of weeks ago he had IV Lasix for 3 days because of the lower extremity edema and currently on Lasix every other day. Patient also had cough recently but that got resolved now.mary lives at home and ambulates with cane. Past medical history. As mentioned above Past surgical history. Colonoscopy with biopsy. Excision of sebaceous cyst. Appendectomy. Bilateral ankle joint arthroplasty. Social history. . No smoking. No alcohol use. No drug use. Family history. Brother had AL. Father had heart disorder. Mother had a large goiter and had surgery Admission Exam Per Admitting Provider General- Not in distress Head- atraumatic Eyes- PERRL, EOMI,vision ok in all quadrants b/l ENT- oropharynx clear Neck- supple, no JVD,carotids +2/2, no bruits appreciated Lungs- clear to auscultation no wheezing or crackles. Heart- regular rate and rhythm; systolic murmur in mitral area, no gallop Abdomen- normal bowel sounds, soft, nontender, no distension Extremities- no pretibial edema, no erythema Neuro- alert, oriented x 3; PERRL, EOMI; no facial palsy; no dysarthria; power 5/5 in upper extremities and 4/5 lower extremities; coordination of movements normal, finger nose test ok. no pronator drift. sensations intact. Skin- warm & dry Principal Dx & Hospital Course #1 = Principal Diagnosis (1) Acephalgic migraine: Mr. Woods is an 88-year-old male with past medical history significant for hypothyroidism, secondary hyperparathyroidism, dyslipidemia, obstructive sleep apnea on CPAP, moderate persistent asthma, COPD, hypertension, a flutter, peripheral vascular disease, CKD stage III, BPH, psoriatic arthropathy, idiopathic scoliosis, history of vestibular schwannoma, general anxiety disorder, history of DVT and PE presents with strokelike symptoms. Patient reported symptoms at 830 AM on 12/21 as vision changes and paraesthsias in his left lower extremity it lasted a couple of minutes and resolved and it happened 2 more times in afternoon and evening. MRI negative. Symptoms resolved. Neurology suspects given history of migraines patient is experiencing acephalgic migraines with aura and recommends magnesium supplementation. #Acephalgic migraine with aura #Stroke like symptoms Low suspicion for stroke/TIA Transient blackening of bilateral vision and tingling in Left lower extremity had 3 episodes for 2 minutes each Currently asymptomatic CT head is okay MRI without stroke, schwannoma reduced in size Neuro: MagOxide 400mg BID Patient at baseline, ready for discharge home #History of close sleep apnea On CPAP #Asthma/COPD Continue home inhalers #History of a flutter On metoprolol succinate and Xarelto #History of DVT and PE On Xarelto #History of vestibular schwannoma S/p radiation as per family Patient in due for MRI, will get it done: decreased in size, 3/6-->1.8cm #Peripheral vascular disease On statin and Xarelto #Chronic diastolic CHF Valvular heart disease Continue home diuretics #Hypertension On losartan, metoprolol succinate, terazosin, amlodipine and hydrochlorothiazide We will monitor #BPH On terazosin and finasteride #Hyperlipidemia On statin #CKD stage III Presented creatinine of 1.5 around baseline Discharge Exam Constitutional WD/WN, vitals as above Respiratory normal respiratory effort, lungs clear to auscultation Cardiovascular RRR, no murmur, no edema Neurologic PERRL, EOMI, accommodation nl, no face palsy, no dysarthria Updated Medication List Medication Instructions Recorded Confirmed Type acetaminophen 500 mg tablet 500 mg PO AMHS 12/22/23 12/22/23 History (Tylenol Extra Strength) albuterol sulfate 90 mcg/actuation 2 puff inhalation Q6H PRN 12/22/23 12/22/23 History aerosol inhaler Shortness Of Breath Or Wheezing amlodipine 2.5 mg tablet 2.5 mg PO QAM 12/22/23 12/22/23 History atorvastatin 40 mg tablet 40 mg PO DAILY 12/22/23 12/22/23 History betamethasone dipropionate 0.05 % 1 applic topical BID 12/22/23 12/22/23 History topical cream cholecalciferol (vitamin D3) 50 50 mcg PO Q OTHER DAY 12/22/23 12/22/23 History mcg (2,000 unit) tablet (Vitamin D3) finasteride 5 mg tablet 5 mg PO DAILY 12/22/23 12/22/23 History fluticasone fur. 100 mcg-umeclid 1 ea inhalation QAM 12/22/23 12/22/23 History 62.5 mcg-vilant 25 mcg inhalat.powder (Trelegy Ellipta) fluticasone propionate 50 2 spray intranasal DAILY PRN Nasal 12/22/23 12/22/23 History mcg/actuation nasal Congestion spray,suspension (Flonase Allergy Relief) furosemide 20 mg tablet (Lasix) 0 mg PO DAILY 12/22/23 12/22/23 History hydrochlorothiazide 12.5 mg capsule 12.5 mg PO DAILY 12/22/23 12/22/23 History ipratropium 0.5 mg-albuterol 3 mg 3 ml inhalation Q6 PRN Shortness 12/22/23 12/22/23 History (2.5 mg base)/3 mL nebulization Of Breath Or Wheezing soln lanolin alcohols-mineral 1 applic topical DAILY PRN dry 12/22/23 12/22/23 History oil-w.petrolatum-ceresin topical skiin cream (Eucerin topical cream) levothyroxine 137 mcg tablet 137 mcg PO QAM 12/22/23 12/22/23 History losartan 100 mg tablet 100 mg PO DAILY 12/22/23 12/22/23 History meclizine 25 mg tablet 25 mg PO DAILY PRN dizzyness 12/22/23 12/22/23 History metoprolol succinate 25 mg 37.5 mg PO QAM 12/22/23 12/22/23 History tablet,extended release 24 hr multivitamin 1 tab PO DAILY 12/22/23 12/22/23 History potassium chloride 10 mEq 10 meq PO AMHS 12/22/23 12/22/23 History capsule,extended release rivaroxaban 15 mg tablet (Xarelto) 15 mg PO .QDINNER 12/22/23 12/22/23 History terazosin 2 mg capsule 2 mg PO DAILY 12/22/23 12/22/23 History magnesium oxide 400 mg PO BID #60 caps 12/23/23 Rx Hospital Stay Data Consultations 12/22/23 22:31 ED Decision to Admit Stat 12/23/23 08:00 Consult Neurology Routine Diagnostic Imagining Performed 12/22/23 21:20 CT head/brain wo con Stat 12/23/23 03:00 MRI brain [MR brain IAC wo/w con] Urgent Pending Results Patient Have Any Pending Studies at Discharge: No Discharge Instructions Given to Patient (Per Discharging Provider) You were admitted for concerns of TIA however, after evaluated by Neurology and with history of migraines, it is suspected you are experiencing acephalic migraines with aura which can cause similar presentation. MRI was negative for signs of stroke. It is recommended that you start Magnesium Oxide 400mg two times daily. Please follow up with Neurology as needed. Please resume all medications as prescribed previously. Total Time Total Time Spent Total Time Spent (In Minutes): 45
[2023-12-23] MEDS: RIVAROXABAN 15 MG TAB PO SCH (16:37)
== END 2023-12-23 17:42 | disposition home or self-care (01) | DRG 103 ==
LOC: ED 20:42 → 2E 12-23 01:53

== ENCOUNTER 2025-03-24 16:13 | Inpatient (IN) ==
[2025-03-24 16:43] LABS: Hematocrit (blood only) 35.4 % (42.0-52.0); Hemoglobin 11.3 g/dl (14.0-18.0); Immature Granulocytes # (auto) 0.03 K/uL (0.01-0.20); Immature Granulocytes % (auto) 0.4 %; Mean Corpuscular Hemoglobin 28.9 pg (25.0-34.0); Mean Corpuscular Volume 90.5 fL (80.0-100.0); Platelet Count 181 K/uL (130-400); RDW Standard Deviation 49.3 fL (36.4-46.3); Red Blood Count 3.91 M/uL (4.70-6.10); White Blood Count 6.94 K/ul (4.8-10.8)
[2025-03-24 17:04] LABS: Alanine Aminotransferase 16.0 U/L (7-52); Albumin Globulin Ratio 1.1 (0.9-2); Alkaline Phosphatase 69.0 U/L (34-104); Anion Gap 5.0 (3-11); Bilirubin,Total 0.9 mg/dl (0.2-1.0); Blood Urea Nitrogen 32.0 mg/dl (6-23); Calcium 9.0 mg/dl (8.6-10.3); Carbon Dioxide 23.0 mmol/L (21-32); Chloride 112.0 mmol/L (98-107); Creatinine Clr Calc Pharmacy 40.0 ml/min; Globulin 3.5 gm/dl (2.5-4.0); Glucose 95.0 mg/dl (70-99(Fasting)); Magnesium 2.1 mg/dl (1.7-2.4); Potassium 4.3 mmol/L (3.5-5.1); Sodium 140.0 mmol/L (136-145); Total Protein 7.3 gm/dl (6.0-8.3)
--- NOTE | 2025-03-24 17:06 | Emergency Department Note ---
Impression & Plan New onset a-fib, Dizziness ED Provider Note HISTORY OF PRESENT ILLNESS: Patient is a 89-year-old male presenting with dizziness. Patient reports that last night he had an episode of "feeling weird." He reports that his vision became tunnel like vision and he developed some chest discomfort and feeling short of breath. He reports the episode lasted for about 30 minutes. He states that he then proceeded to have a migraine aura, which the patient states was his typical migraine aura. He states that he again had an episode today of "feeling weird." Given his recurrent episodes, he decided to be evaluated in the emergency department. He currently denies any complaints on my assessment. He denies any recent fevers or chills. Denies any recent falls or head injury. He denies any numbness, tingling or weakness in extremities. He is on Xarelto for history of bilateral PEs. Denies any missed doses. Denies any history of atrial fibrillation ROS: as above PHYSICAL EXAM: Constitutional: Patient appears in no acute distress. HENT: Head: Normocephalic and atraumatic. Eyes: EOMI, PERRL Mouth/Throat: Mucous membranes moist. Neck: Trachea midline. Neck supple. Cardiovascular: Irregular rhythm. No murmurs, rubs or gallops. Intact distal pulses. Pulmonary/Chest: No respiratory distress. Breath sounds clear and equal bilaterally. No wheezes or rales. Abdominal: Abdomen soft, no tenderness, rebound or guarding. Musculoskeletal: No tenderness or deformity noted. Trace edema of the bilateral lower extremities extending to the mid tibias Skin: Warm and dry. No rash, erythema, pallor or cyanosis Psychiatric: Appropriate mood and affect for situation. Neurological: Alert and keenly responsive. CN II-XII grossly intact, moving all extremities equally and fully. MDM: - Vitals signs showed hypertension - History obtained via patient. History as above. - Chronic conditions affecting care: PE; HTN; hypothyroidism; CKD; MARC; BPH; CHF - Differential diagnoses include, but are not limited to: electrolyte abnormality; dysrhythmia; PE; pneumonia; pulmonary edema - Order placed for continuous cardiac monitoring. At this time, monitor showed rate of 84 bpm with irregular rhythm, per my interpretation. - External medical records reviewed. [facility] cardiology visit note dated 10/12/2021 was reviewed. Patient was seen for routine follow-up examination. - EKG image interpreted by myself showed atrial fibrillation. Rate 96 bpm. QT 354. No acute ischemic changes. 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 Review of previous EKGs, most recently the EKG from 12/22/2023, shows the patient has previously been in sinus rhythm. - Laboratory workup interpreted by myself showed normal WBC; normal PT/INR; stable electrolytes; normal troponin; normal AST/ALT - CXR image reviewed by myself was negative for pneumonia and showed cardiomegaly, per my interpretation. - Patient noted to be hypertensive in the emergency department. He has never been in A-fib before and no previous echocardiograms noted in our system. It is likely that the patient is having these "dizzy spells" secondary to his new dysrhythmia. Will discuss case with hospitalist service for admission for further cardiac workup. - Discussion was had with case planner about patient's case and need for admission - Hospitalist consulted for admission at 18:25 - Patient admitted to [facility] hospitalist service for further evaluation and management. ASSESSMENT AND PLAN: Diagnosis: New onset A-fib; dizziness Plan: Admit Past Med/Surg History Problem List (Updated 01/23/24 @ 00:09 by Lokesh Whitley) Dizziness (Acute) New onset a-fib (Acute) Acephalgic migraine Aura Tachycardia Diffusion capacity of lung (dl), decreased Chronic bronchitis Diastolic CHF History of pulmonary embolism Acute bronchitis Unilateral vestibular schwannoma Mass, brain Vasovagal symptom Orthostatic hypotension Hypertension Deep vein thrombosis Encounter for pre-operative examination Encounter for pre-operative examination COPD (chronic obstructive pulmonary disease) (Chronic) Psoriatic arthropathy (Chronic) BPH (benign prostatic hyperplasia) (Chronic) 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 (Chronic) Toxic diffuse goiter (Chronic) CKD (chronic kidney disease), stage III (Chronic) Hypothyroidism (Chronic) Hypertension (Chronic) Pulmonary embolism (Chronic) "In 2004, completed 6 months of Coumadin therapy" History of appendectomy (Chronic) History of ankle surgery (Chronic) "Bilateral" Medical History Tachycardia Diffusion capacity of lung (dl), decreased Chronic bronchitis Diastolic CHF History of pulmonary embolism Acute bronchitis Psoriasis Osteoarthritis Chronic kidney disease STAGE 3 BPH (benign prostatic hyperplasia) GERD (gastroesophageal reflux disease) Hypothyroidism Anemia Hearing deficit Migraine Pulmonary embolism REASON FOR TAKING XARELTO Deep vein thrombosis Hypertension Hyperlipidemia Sleep apnea CPAP Chronic obstructive pulmonary disease Surgical History History of open reduction and internal fixation (ORIF) procedure RT HIP History of foot surgery RT/LEFT FOOT BONE SPURS History of colonoscopy History of appendectomy History of tooth extraction Orbital fracture FX REPAIR>LEFT EYE History of cataract surgery RT/LEFT Family History Other Family history non-contributory Social History Smoking Status: Never smoker Second Hand Exposure: No; Do You Dip or Chew Tobacco: No; Hx Alcohol Use: No Hx Substance Use: No Preferred Language: [place] Communication Ability: Effective Employee Relations Advisor Required: No Beliefs That Will Affect Care: None Current Living Situation: Spouse Feels Safe at Home: Yes Assistive Devices: CPAP, Denture - Upper, Denture - Lower and Glasses Allergies Allergies Allergy/AdvReac Type Severity Reaction Status Date / Time Sulfa (Sulfonamide Allergy Intermediate Hives Unverified 03/24/25 17:06 Antibiotics) SIDNEY Inhibitors Allergy Mild COUGH Verified 03/24/25 17:06 Home Meds Home Medications Medication Instructions Recorded Confirmed acetaminophen 500 mg tablet 500 mg PO AMHS 12/22/23 03/24/25 (Tylenol Extra Strength) albuterol sulfate 90 mcg/actuation 2 puff inhalation Q6H PRN 12/22/23 03/24/25 aerosol inhaler Shortness Of Breath Or Wheezing amlodipine 2.5 mg tablet 2.5 mg PO QAM 12/22/23 03/24/25 atorvastatin 40 mg tablet 40 mg PO QAM 12/22/23 03/24/25 betamethasone dipropionate 0.05 % 1 applic topical BID 12/22/23 03/24/25 topical cream cholecalciferol (vitamin D3) 50 50 mcg PO Q OTHER DAY 12/22/23 03/24/25 mcg (2,000 unit) tablet (Vitamin D3) finasteride 5 mg tablet 5 mg PO DAILY 12/22/23 03/24/25 fluticasone fur. 100 mcg-umeclid 1 ea inhalation QAM 12/22/23 03/24/25 62.5 mcg-vilant 25 mcg inhalat.powder (Trelegy Ellipta) fluticasone propionate 50 2 spray intranasal DAILY PRN Nasal 12/22/23 03/24/25 mcg/actuation nasal Congestion spray,suspension (Flonase Allergy Relief) furosemide 20 mg tablet (Lasix) 20 mg PO DAILY 12/22/23 03/24/25 lanolin alcohols-mineral 1 applic topical DAILY PRN dry 12/22/23 03/24/25 oil-w.petrolatum-ceresin topical skiin cream (Eucerin topical cream) levothyroxine 137 mcg tablet 137 mcg PO QAM 12/22/23 03/24/25 losartan 100 mg tablet 100 mg PO DAILY 12/22/23 03/24/25 meclizine 25 mg tablet 50 mg PO QAM 12/22/23 03/24/25 metoprolol succinate 25 mg 37.5 mg PO QAM 12/22/23 03/24/25 tablet,extended release 24 hr multivitamin 1 tab PO DAILY 12/22/23 03/24/25 rivaroxaban 15 mg tablet (Xarelto) 15 mg PO QPM 12/22/23 03/24/25 terazosin 2 mg capsule 2 mg PO QPM 12/22/23 03/24/25 allopurinol 100 mg tablet 100 mg PO QAM 03/24/25 03/24/25 Results & Data (ED) Vital Signs Vital Signs - 24 hr 03/24/25 16:14 03/24/25 16:14 03/24/25 16:44 Temperature 36.6 C Temperature Source Temporal Artery Scan Pulse Rate 93 H Pulse Rate [Apical] Respiratory Rate 18 Respiratory Effort / Characteristics Respiratory Depth Blood Pressure 161/83 H Blood Pressure [Right Arm] Blood Pressure Mean 109 Blood Pressure Mean [Right Arm] Pulse Oximetry 95 96 Oxygen Delivery Method Room Air Room Air Sepsis Recent Fever Within 48 Hours No Sepsis New/Unexplained Change in Mental Status N/A Sepsis Action Taken by Nursing No Action Required 03/24/25 16:53 03/24/25 18:00 Temperature Temperature Source Pulse Rate 84 Pulse Rate [Apical] 82 Respiratory Rate 18 Respiratory Effort / Characteristics Non-Labored Spontaneous Respiratory Depth Normal Blood Pressure Blood Pressure [Right Arm] 154/89 H Blood Pressure Mean Blood Pressure Mean [Right Arm] 110 Pulse Oximetry 95 Oxygen Delivery Method Room Air Sepsis Recent Fever Within 48 Hours Sepsis New/Unexplained Change in Mental Status Sepsis Action Taken by Nursing Laboratory Data 03/24/25 16:26 03/24/25 16:26 Lab Results 03/24/25 Range/Units 16:26 WBC 6.94 (4.8-10.8) K/ul RBC 3.91 L (4.70-6.10) M/uL Hgb 11.3 L (14.0-18.0) g/dl Hct 35.4 L (42.0-52.0) % MCV 90.5 (80.0-100.0) fL MCH 28.9 (25.0-34.0) pg MCHC 31.9 L (32.0-36.0) g/dL RDW Std Deviation 49.3 H (36.4-46.3) fL RDW Coeff of Jeremiah 14.9 H (11.5-14.5) % Plt Count 181 (130-400) K/uL MPV 11.1 (9.4-12.4) fL Immature Gran % (Auto) 0.4 % Neut % (Auto) 59.3 % Lymph % (Auto) 25.4 % [place] % (Auto) 10.5 % Eos % (Auto) 4.0 % Baso % (Auto) 0.4 % Neut # (Auto) 4.11 (1.40-6.50) K/uL Lymph # (Auto) 1.76 (1.20-3.40) K/uL [place] # (Auto) 0.73 H (0.11-0.59) K/uL Eos # (Auto) 0.28 (0.00-0.50) K/uL Baso # (Auto) 0.03 (0.00-0.20) K/uL Immature Gran # (Auto) 0.03 (0.01-0.20) K/uL PT 11.9 (9.0-12.0) Seconds INR 1.1 (0.9-1.1) APTT 26 (21-31) Seconds PTT Ratio 1.0 Sodium 140 (136-145) mmol/L Potassium 4.3 (3.5-5.1) mmol/L Chloride 112 H (98-107) mmol/L Carbon Dioxide 23 (21-32) mmol/L Anion Gap 5 (3-11) BUN 32 H (6-23) mg/dl Creatinine 1.17 (0.6-1.4) mg/dl Est Cr Clr Drug Dosing 40.0 ml/min eGFR 59.59 BUN/Creatinine Ratio 27.4 H (10-20) Glucose 95 (70-99(Fasting)) mg/dl Calcium 9.0 (8.6-10.3) mg/dl Magnesium 2.1 (1.7-2.4) mg/dl Total Bilirubin 0.9 (0.2-1.0) mg/dl AST 30 (13-39) U/L ALT 16 (7-52) U/L Alkaline Phosphatase 69 (34-104) U/L Troponin I High Sens 10.9 (0-20) pg/ml Total Protein 7.3 (6.0-8.3) gm/dl Albumin 3.8 (3.4-5.0) gm/dl Globulin 3.5 (2.5-4.0) gm/dl Albumin/Globulin Ratio 1.1 (0.9-2) Imaging Data Radiologist's Impression: Chest X-Ray 03/24/25 16:18 Clinical History: Chest pain Technique: A frontal view of the chest was obtained Comparison is made to prior examination dated 12/22/2023 Findings: There is suspected mild pulmonary edema. The heart is enlarged. No pleural effusion or pneumothorax is seen. There is no definite pulmonary nodule. No fracture is noted. No foreign body is seen Impression: Cardiomegaly and mild pulmonary edema ACT 112: Positive. There are findings on this exam that require communication between the performing entity and the patient following Patient Test Result Information Act ([place] ACT 112) guidelines. Electronically signed by Shravan Graves 03-24-2025 6:25 PM Discharge Plan Visit Data Chief Complaint: Chest Pain Stated Complaint: CHEST PAIN, SOB ED Provider: Vicky Nj Discharge Problem: New onset a-fib, Dizziness Condition: Fair Forms Stand Alone Forms: My [facility] Prescriptions Prescriptions: No Action multivitamin Tablet 1 tab PO DAILY atorvastatin 40 mg tablet 40 mg PO QAM levothyroxine 137 mcg tablet 137 mcg PO QAM amlodipine 2.5 mg tablet 2.5 mg PO QAM acetaminophen [Tylenol Extra Strength] 500 mg Tablet 500 mg PO AMHS terazosin 2 mg capsule 2 mg PO QPM meclizine 25 mg tablet 50 mg PO QAM betamethasone dipropionate 0.05 % cream 1 applic TOPICAL BID furosemide [Lasix] 20 mg Tablet 20 mg PO DAILY metoprolol succinate 25 mg tablet extended release 24 hr 37.5 mg PO QAM albuterol sulfate 90 mcg/actuation Hfa Aerosol Inhaler 2 puff INHALATION Q6H PRN (Reason: Shortness Of Breath Or Wheezing) losartan 100 mg tablet 100 mg PO DAILY fluticasone propionate [Flonase Allergy Relief] 50 mcg/actuation [place],Suspension 2 spray INTRANASAL DAILY PRN (Reason: Nasal Congestion) Rx Instructions: administer into each nostril finasteride 5 mg tablet 5 mg PO DAILY cholecalciferol (vitamin D3) [Vitamin D3] 50 mcg (2,000 unit) Tablet 50 mcg PO Q OTHER DAY Eucerin Cream 1 applic TOPICAL DAILY PRN (Reason: dry skiin) Xarelto 15 mg tablet 15 mg PO QPM Trelegy Ellipta 100-62.5-25 mcg blister with device 1 ea INHALATION QAM allopurinol 100 mg tablet 100 mg PO QAM Referrals Referrals: Anamaria Allison DO [Primary Care Provider] -
[2025-03-24 17:09] LABS: INR 1.1 (0.9-1.1); Partial Thromboplastin Time 26 Seconds (21-31); Prothrombin Time 11.9 Seconds (9.0-12.0)
--- NOTE | 2025-03-24 18:27 | XRay Report ---
Clinical History: Chest pain Technique: A frontal view of the chest was obtained Comparison is made to prior examination dated 12/22/2023 Findings: There is suspected mild pulmonary edema. The heart is enlarged. No pleural effusion or pneumothorax is seen. There is no definite pulmonary nodule. No fracture is noted. No foreign body is seen Impression: Cardiomegaly and mild pulmonary edema ACT 112: Positive. There are findings on this exam that require communication between the performing entity and the patient following Patient Test Result Information Act ([place] ACT 112) guidelines. Electronically signed by Shravan Graves 03-24-2025 6:25 PM
--- NOTE | 2025-03-24 18:37 | History & Physical Report ---
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 Currently symptoms resolved. DDx: TIA, Stroke, migraine aura, arrhythmia, seizure CT head: no acute stroke noted Monitor on telemetry MRI brain and IAC to r/o stroke and reassess schwannoma EEG Continue home statin, Xarelto Neurology consult (2) (HFpEF) heart failure with preserved ejection fraction: (3) Valvular heart disease: Plan: #Acute on Chronic HFpEF #Moderate-severe aortic regurgitation #Severe mitral regurgitation BNP: 765 CXR: Cardiomegaly and mild pulmonary edema Lasix 20mg IV daily and reassess. Hold home oral lasix Monitor I's &O's and daily weight. Low sodium diet 12/14/23 echo: EF: 55-59%, moderate LVH, grade 2 diastolic dysfunction, moderate- severe aortic regurgitation, mild posterior mitral leaflet prolapse, severe mitral regurgitation Troponin negative x 2 Echo Cardiology consult BMP in am (4) Atrial fibrillation: Plan: History Atrial flutter History Atrial fibrillation Outpatient EKG on 02/10/2025 atrial fibrillation, left anterior fascicular block, 10/10/2024 EKG atrial fibrillation, nonspecific ST abnormality Anticoagulated on Xarelto Current rate controlled Continue metoprolol, Xarelto (5) CKD (chronic kidney disease), stage III: Plan: Cr: 1.17 (baseline: Cr: 1.6 on 11/12/24) Monitor renal functions, avoid nephrotoxic agents when possible (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 There is also decreased mass effect upon the right with brachium pontis and right cerebellar hemisphere. No acute or subacute infarct. Obtaining MRI brain IAC as above (7) History of pulmonary embolism: Plan: History DVT & PE Anticoagulated on Xarelto #HTN Continue amlodipine, losartan #Dyslipidemia Continue #BPH Continue finasteride, terazosin #Asthma #COPD No sign acute exacerbation Continue home inhalers #MARC CPAP HS #Hypothyroidism TSH pending Continue levothyroxine DVT Prophylaxis On Xarelto Admit telemetry Full Code as per discussion with pt Follows with Dr Allison for routine care Pt was seen and care coordinated with Dr Renae. See addendum I spent a total of 78 minutes reviewing notes, outpatient records, labs, m edication, coordinating, documenting and providing care for this patient excluding time spent in the performance of separately billed services and excluding time spent by another provider/QHP. 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 History obtained from patient as well as patient's at bedside. Patient reports chronic right hearing loss and chronic dizziness from history s chwannoma. He states dizziness seems more severe in mornings and takes 50mg meclizine in the morning which helps with dizziness. Patient feels his dizziness is at baseline and doesn't feel any worsening. Patient states yesterday was sitting in recliner chair taking a nap. When he woke up from nap he reports he felt "off". He states his vision seemed "wavy". He thinks it may have been bilateral eyes but is unsure. At the time he denies any headache, vision loss, chest pain, shortness of breath, dizziness. Patient's states at the time patient just seemed to be staring off however was responsive and talking. She did not notice any facial drooping or speech changes. Patient denies any extremity weakness or paresthesias. Patient states remaining day felt his normal self. This morning he woke up and reports "did not feel right" and describes as feeling tired and not having any "pep and ambition". He states he took his morning medications and ate oatmeal for breakfast. He again went to his recliner chair and was sitting in his chair. Continued to feel fatigued. At this time patient reports he does not remember what happened later that morning and reports patient said he had an episode of headache and tunnel vision and then had some discomfort across his upper chest. During the course of conversation patient later remembers and said he had some discomfort to his upper chest and he had "pressure" to bilateral mormonism region and felt like his "vision was closing in". He denies LOC, increased dizziness, loss of vision, chest pain, palpitations, paresthesias or extremity weakness. Patient's states approximately 6 weeks ago they were sitting at restaurant eating when patient also had an episode of "staring off" and stating he did not feel right. Patient's PCP had suggested patient may need outpatient cardiac cath lab manager. Per inpatient chart review history [facility] hospitalization 12/2023 for episode of transient bilateral vision loss and left leg paresthesia with MRI brain negative for stroke and had noted decrease in size of schwannoma. Neurology was consulted and thought symptoms suggestive of possible migraine aura and mag oxide was started. Patient states the episode he had today felt similar to that episode in 12/2023. Patient reports chronic BLE edema and takes Lasix 20mg daily. He states did not have his Lasix today. Has baseline exertional SOB and feels this is baseline also. Denies fever/chills, diaphoresis, N/V/D/C, syncope, diplopia, neck pain, orthopnea, palpitations, cough, sore throat, rhinorrhea, abdominal pain, paresthesias, weakness, extremity weakness, rashes, urinary symptoms. Allergies Allergy/AdvReac Type Severity Reaction Status Date / Time Sulfa (Sulfonamide Allergy Intermediate Hives Unverified 03/24/25 17:06 Antibiotics) SIDNEY Inhibitors Allergy Mild COUGH Verified 03/24/25 17:06 Home Medications Medication Instructions Recorded Confirmed Type acetaminophen 500 mg tablet 500 mg PO AMHS 12/22/23 03/24/25 History (Tylenol Extra Strength) albuterol sulfate 90 mcg/actuation 2 puff inhalation Q6H PRN 12/22/23 03/24/25 History aerosol inhaler Shortness Of Breath Or Wheezing amlodipine 2.5 mg tablet 2.5 mg PO QAM 12/22/23 03/24/25 History atorvastatin 40 mg tablet 40 mg PO QAM 12/22/23 03/24/25 History betamethasone dipropionate 0.05 % 1 applic topical BID 12/22/23 03/24/25 History topical cream cholecalciferol (vitamin D3) 50 50 mcg PO Q OTHER DAY 12/22/23 03/24/25 History mcg (2,000 unit) tablet (Vitamin D3) finasteride 5 mg tablet 5 mg PO DAILY 12/22/23 03/24/25 History fluticasone fur. 100 mcg-umeclid 1 ea inhalation QAM 12/22/23 03/24/25 History 62.5 mcg-vilant 25 mcg inhalat.powder (Trelegy Ellipta) fluticasone propionate 50 2 spray intranasal DAILY PRN Nasal 12/22/23 03/24/25 History mcg/actuation nasal Congestion spray,suspension (Flonase Allergy Relief) furosemide 20 mg tablet (Lasix) 20 mg PO DAILY 12/22/23 03/24/25 History lanolin alcohols-mineral 1 applic topical DAILY PRN dry 12/22/23 03/24/25 History oil-w.petrolatum-ceresin topical skiin cream (Eucerin topical cream) levothyroxine 137 mcg tablet 137 mcg PO QAM 12/22/23 03/24/25 History losartan 100 mg tablet 100 mg PO DAILY 12/22/23 03/24/25 History meclizine 25 mg tablet 50 mg PO QAM 12/22/23 03/24/25 History metoprolol succinate 25 mg 37.5 mg PO QAM 12/22/23 03/24/25 History tablet,extended release 24 hr multivitamin 1 tab PO DAILY 12/22/23 03/24/25 History rivaroxaban 15 mg tablet (Xarelto) 15 mg PO QPM 12/22/23 03/24/25 History terazosin 2 mg capsule 2 mg PO QPM 12/22/23 03/24/25 History allopurinol 100 mg tablet 100 mg PO QAM 03/24/25 03/24/25 History Past Med/Surg History Problem List Atrial fibrillation Valvular heart disease (HFpEF) heart failure with preserved ejection fraction Dizziness (Acute) Acephalgic migraine Aura Tachycardia Diffusion capacity of lung (dl), decreased Chronic bronchitis Diastolic CHF History of pulmonary embolism Acute bronchitis Unilateral vestibular schwannoma Mass, brain Vasovagal symptom Orthostatic hypotension Hypertension Deep vein thrombosis Encounter for pre-operative examination Encounter for pre-operative examination COPD (chronic obstructive pulmonary disease) (Chronic) Psoriatic arthropathy (Chronic) BPH (benign prostatic hyperplasia) (Chronic) 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 (Chronic) Toxic diffuse goiter (Chronic) CKD (chronic kidney disease), stage III (Chronic) Hypothyroidism (Chronic) Hypertension (Chronic) Pulmonary embolism (Chronic) "In 2004, completed 6 months of Coumadin therapy" History of appendectomy (Chronic) History of ankle surgery (Chronic) "Bilateral" Medical History TIA (transient ischemic attack) Psoriasis Osteoarthritis Chronic kidney disease STAGE 3 BPH (benign prostatic hyperplasia) GERD (gastroesophageal reflux disease) Hypothyroidism Anemia Hearing deficit Migraine Pulmonary embolism REASON FOR TAKING XARELTO Hyperlipidemia Sleep apnea CPAP Chronic obstructive pulmonary disease Surgical History History of open reduction and internal fixation (ORIF) procedure RT HIP History of foot surgery RT/LEFT FOOT BONE SPURS History of colonoscopy History of appendectomy History of tooth extraction Orbital fracture FX REPAIR>LEFT EYE History of cataract surgery RT/LEFT Family History (Updated 03/24/25 @ 18:53 by Greta Michel PA-C) Other Coronary heart disease Social History Smoking Status: Never smoker Second Hand Exposure: No; Do You Dip or Chew Tobacco: No; Hx Alcohol Use: No Hx Substance Use: No Preferred Language: Qatari Communication Ability: Effective Varnish Dipper Required: No Beliefs That Will Affect Care: None Current Living Situation: Spouse Feels Safe at Home: Yes Assistive Devices: CPAP, Denture - Upper, Denture - Lower and Glasses Review of Systems Review of Systems: All systems reviewed & are unremarkable except as noted in HPI & below Physical Exam Physical Exam: General: no distress, WDWN Head: normocephalic, atraumatic Eyes: PERRL, EOM's intact, +lateral nystagmus noted, conjunctiva non-injected, anicteric ENT: normal inspection external ears, nose, mucous membranes moist Neck: supple, trachea midline Lungs: clear, no respiratory distress, no wheezing/rhonchi/rales CV: irregularly irregular, rate 86, + murmur, 1+ pretibial edema Abd: normal BS, soft, non-tender Ext: no cyanosis, no calf tenderness Neuro: A&O x 3, no focal deficits noted, normal affect Skin: warm, dry Results & Data Results & Data Vital Signs (Past 12 Hours) Vital Signs Temp Pulse Pulse Resp BP BP Pulse Ox 03/24/25 18:00 82 18 154/89 H 95 03/24/25 16:53 84 03/24/25 16:44 96 03/24/25 16:14 03/24/25 16:14 36.6 C 93 H 18 161/83 H 95 O2 Del Method 03/24/25 18:00 Room Air 03/24/25 16:53 03/24/25 16:44 Room Air 03/24/25 16:14 Room Air 03/24/25 16:14 Laboratory Results Short CBC 03/24/25 Range/Units 16:26 WBC 6.94 (4.8-10.8) K/ul Hgb 11.3 L (14.0-18.0) g/dl Hct 35.4 L (42.0-52.0) % Plt Count 181 (130-400) K/uL BMP 03/24/25 16:26 Sodium 140 Potassium 4.3 Chloride 112 H Carbon Dioxide 23 BUN 32 H Creatinine 1.17 Glucose 95 Calcium 9.0 Liver Function 03/24/25 Range/Units 16:26 Total Bilirubin 0.9 (0.2-1.0) mg/dl AST 30 (13-39) U/L ALT 16 (7-52) U/L Alkaline Phosphatase 69 (34-104) U/L Albumin 3.8 (3.4-5.0) gm/dl Diagnostic Findings Chest X-Ray 03/24/25 16:18 Clinical History: Chest pain Technique: A frontal view of the chest was obtained Comparison is made to prior examination dated 12/22/2023 Findings: There is suspected mild pulmonary edema. The heart is enlarged. No pleural effusion or pneumothorax is seen. There is no definite pulmonary nodule. No fracture is noted. No foreign body is seen Impression: Cardiomegaly and mild pulmonary edema ACT 112: Positive. There are findings on this exam that require communication between the performing entity and the patient following Patient Test Result Information Act ([place] ACT 112) guidelines. Electronically signed by Shravan Graves 03-24-2025 6:[address] 03/24/25 18:29 Clinical History: Dizziness Technique: Axial computed tomography images were obtained of the brain without intravenous contrast. Findings: There is diffuse cerebral atrophy, within expected limits for the patient's age. Areas of decreased attenuation are seen within the periventricular white matter, likely representing chronic small vessel ischemic disease. There is no definite sign of acute or old infarction. No intracranial hemorrhage is evident. No definite mass lesion is seen on this noncontrast examination. There is no midline shift or other form of herniation. No hydrocephalus is seen. No fracture is identified. The orbits and the visualized paranasal sinuses appear unremarkable. The mastoid air cells appear clear. Impression: 1. Cerebral atrophy and chronic small vessel ischemic disease 2. Otherwise unremarkable noncontrast CT of the brain Electronically signed by Shravan Graves 03-24-2025 7:50 PM ECG Additional Comments: Atrial fibrillation, rate 96, nonspecific ST changes, voltage criteria for LVH, LAFB per my interpretation
--- NOTE | 2025-03-24 19:50 | CT Scan Report ---
Clinical History: Dizziness Technique: Axial computed tomography images were obtained of the brain without intravenous contrast. Findings: There is diffuse cerebral atrophy, within expected limits for the patient's age. Areas of decreased attenuation are seen within the periventricular white matter, likely representing chronic small vessel ischemic disease. There is no definite sign of acute or old infarction. No intracranial hemorrhage is evident. No definite mass lesion is seen on this noncontrast examination. There is no midline shift or other form of herniation. No hydrocephalus is seen. No fracture is identified. The orbits and the visualized paranasal sinuses appear unremarkable. The mastoid air cells appear clear. Impression: 1. Cerebral atrophy and chronic small vessel ischemic disease 2. Otherwise unremarkable noncontrast CT of the brain Electronically signed by Shravan Graves 03-24-2025 7:50 PM
--- NOTE | 2025-03-24 19:53 | Communication Note ---
Date of Service: March 24, 2025 Attending Addendum: Case reviewed with the advanced practitioner. I have personally performed a history and physical examination on the patient. I have reviewed the advanced practitioner's documentation on the date of service referenced in note, and I agree with, and take responsibility for the plan of care. please refer to her notes for full details patient seen and examined, records reviewed by myself as well on exam, patient seen resting in bed, comfortable, sitting up family at bedside poor recollection of events of yesterday as per family, patient after standing from his chair, reported dizziness, and noted that he was staring for a few seconds adds patient has been having recurrent episodes of staring, "not feeling well" for the past few weeks no active chest pain, dyspnea, palpitations no other symptoms VS noted and reviewed oriented x 3, not in distress, speaks in sentences with no effort nor accessory muscle use normal rate, irregularly irregular rhythm, no murmurs mild rales at the bases, no wheezing non distended, soft, nontender mild lower leg edema, erythema, warmth no neuro deficits all labs, imaging noted and reviewed ASSESSMENT AND PLAN> RECURRENT EPISODES OF DIZZINESS, ALTERED MENTAL STATUS r/o Neurologic causes r/o acute CVA, TIA: CT head no acute process Brain MRI with auditory canal ordered as patient also has history of schwannoma rule out seizure: EEG ordered Possible complicated migraine:: Neurologist consulted r/o Cardiac etiology Chronic A fib on Eliquis Echocardiogram to r/o progression of valvular disease Telemetry, may need Zio patch to r/o tachy/bradyarrhythmia check Orthostatic Vitals Mild Acute on chronic CHFpEF Echocardiogram usually on Lasix 20mg po daily Lasix IV Cardiology consult other diagnoses and plan of care as per advanced practitioner's notes I spent a total of 40 minutes coordinating, documenting, and providing care for this patient, excluding time spent in the performance of separately billed services or time spent by another provider/QHP. Hudson Renae MD
[2025-03-24] MEDS: FUROSEMIDE INJ 20 MG/2 ML VIAL IV ONE (20:31)
[2025-03-24 20:32] LABS: Thyroid Stimulating Hormone 1.604 uIu/ml (0.300-4.500)
[2025-03-24] MEDS: GADOBUTROL 65ML VIAL IV ONE (22:20)
[2025-03-24] MEDS: RIVAROXABAN 15 MG TAB PO ONE (23:06)
[2025-03-24] MEDS: TERAZOSIN HCL 1 MG CAP PO ONE (23:06)
[2025-03-25] MEDS ORDERED: ONDANSETRON INJ 2 MG/ML 2 ML VIAL IV PRN (00:18)
[2025-03-25] MEDS ORDERED: PHARMACIST DISCHARGE MED REC CONSULT PRN (00:18)
[2025-03-25] MEDS ORDERED: ALBUTEROL HFA 8 GM INHALER INH PRN (00:18)
[2025-03-25] MEDS ORDERED: POLYETHYLENE (MIRALAX) 17 GM PACK PO PRN (00:18)
--- NOTE | 2025-03-25 03:59 | Magnetic Resonance Report ---
CLINICAL HISTORY: Patient states dizziness, unsteady gait. Tunnel vision and migraines. Symptoms off and on for several weeks. History of schwannoma right side, radiation in 2020. May have bumped head off floor a few weeks ago. COMPARISON: CT head of same date and MRI DOS 12/23/2023. TECHNIQUE: MRI internal auditory canal imaging was performed on a 3.0 Laura Multiplanar scanner including coronal T1W, axial T2W, axial T2W TIRM, axial SWI/spin-density, axial diffusion weighted, axial FLAIR and axial T2W SPACE acquisitions. Pre and post contrast axial T1W VIBE gradient echo images were multiplanar reformatted for interrogation on PACS system. Contrast dose: 8 ml Gadavist. FINDINGS: Limited examination due to motion blur, degrading images obscuring fine details. Within this limitation: Internal auditory canal and vestibulo-cochlear nerve complex: There is re-demonstration of abnormal signal intensity lobulated lesion within the right CP angle cistern and the internal auditory canal again now measuring approximately 1.2x1.3x1.7 cm, previously it measured about 1.4x1.4x1.8 cm. It appears isointense on T1 and heterogeneous on T2WI with intense post contrast enhancement. It is again seen abutting the cisternal portion of right 5th cranial nerve and right cerebellar tentorium. However, no significant mass effect is identified in the current examination. The left 7th and 8th nerve complexes appear normal. No obvious space-occupying lesion was seen in the left IAC or the CP angle. Left inner ear structures are normal. Bilateral trigeminal nerves appear unremarkable. Bilateral Meckel's caves appear unremarkable. Brain:Multiple discrete and confluent T2W and FLAIR hyperintensities are again seen in bilateral centrum semiovale, subcortical and deep white matter. No abnormality seen on diffusion imaging. Findings suggest microvascular ischemic changes of varying duration. Subtle signal voids on SWI are again identified in the right cerebellar hemisphere adjacent to the lesion likely representing post treatment changes and showing no significant interval change. Age-appropriate global involutional changes noted. Diffuse leptomeningeal enhancement is also identified which is likely secondary to post radiation changes. Basal ganglia, thalamic nuclei, midbrain, wolf, cerebellum and medulla oblongata return normal signals. No other signal voids on hemosensitive gradient echo sequences to prior intracranial hemorrhage or hemosiderin staining. No abnormal signal on diffusion-weighted imaging to suggest acute infarction. FLAIR images show no evidence of significant gliosis and therefore no dysmyelinating or demyelinating disease patterns are identified. No evidence of midline shift or herniation. Posterior fossa: Re-demonstration of inferior tonsilar descent of approximately 11.0 mm showing no interval change. Left cerebellopontine angle, vestibulocochlear nerve complex and internal auditory canal appears grossly unremarkable. No evidence of Chiari malformation. Vascular system: No gross vascular abnormalities. The major vessels at the skull base including the carotids and the vertebrobasilar systems demonstrate normal patent flow voids. The dural venous sinuses appear unremarkable without evidence of thrombosis. Extra-axial spaces: Within normal limits. Specifically, no abnormal intra-axial or extra-axial fluid collection such as hemorrhage noted. Globes and orbits: Bilateral orbits and optic nerves appear unremarkable. Paranasal sinuses: The paranasal sinuses appear unremarkable. A small tornwaldt cyst measuring 3.8x6.0 mm is also seen in the nasopharynx slightly towards the right side. Temporal bones, skull base and mastoids: Normal skull base. Well aerated mastoid air cells. Calvarium and scalp: No evidence of fracture. Normal marrow signals. Scalp appears unremarkable. IMPRESSIONS: 1. Marginal reduction in the size of right CP angle lesion previously described as vestibular schwannoma. 2. Interval evidence of prominent diffuse leptomeningeal enhancement which is likely secondary to post radiation changes. Would recommend clinical correlation. 3. Chronic white matter ischemic changes of varying duration. [place] 3. 4. Age-appropriate advanced global involutional changes. 5. The 7th and 8th nerve complexes on left side appear normal without definite space-occupying lesion. 6. No intracerebral hemorrhage or acute infarction. Electronically signed by Lan Suh 03-25-2025 03:58 AM
[2025-03-25] MEDS: LEVOTHYROXINE SODIUM 137 MCG TABLET PO SCH (06:01)
[2025-03-25 07:34] LABS: Hematocrit (blood only) 32.5 % (42.0-52.0); Hemoglobin 10.7 g/dl (14.0-18.0); Mean Corpuscular Hemoglobin 29.5 pg (25.0-34.0); Mean Corpuscular Volume 89.5 fL (80.0-100.0); Platelet Count 173 K/uL (130-400); RDW Standard Deviation 47.5 fL (36.4-46.3); Red Blood Count 3.63 M/uL (4.70-6.10); White Blood Count 6.69 K/ul (4.8-10.8)
[2025-03-25 07:59] LABS: Anion Gap 6.0 (3-11); Blood Urea Nitrogen 31.0 mg/dl (6-23); Calcium 8.8 mg/dl (8.6-10.3); Carbon Dioxide 28.0 mmol/L (21-32); Chloride 111.0 mmol/L (98-107); Cholesterol 151.0 mg/dl (0-200); Creatinine Clr Calc Pharmacy 39.0 ml/min; Glucose 86.0 mg/dl (70-99(Fasting)); HDL Cholesterol 50.0 mg/dl; Magnesium 2.0 mg/dl (1.7-2.4); Potassium 4.0 mmol/L (3.5-5.1); Sodium 145.0 mmol/L (136-145); Triglycerides 76.0 mg/dl (0-150)
[2025-03-25 08:33] LABS: Hemoglobin A1C 5.5 % (4.5-5.6)
[2025-03-25] MEDS: UMECLIDINIUM/VILANTEROL 62.5/25MCG 7 PUFFS/INHALER INH SCH (08:39)
[2025-03-25] MEDS: FLUTICASONE FUROATE 100MCG 14 PUFFS/INHALER INH SCH (08:39)
[2025-03-25] MEDS: FINASTERIDE 5 MG TAB PO SCH (08:41)
[2025-03-25] MEDS: MECLIZINE HCL 25 MG TAB PO SCH (08:41)
[2025-03-25] MEDS: ATORVASTATIN 40 MG TAB PO SCH (08:41)
[2025-03-25] MEDS: LOSARTAN POTASSIUM 50 MG TAB PO SCH (08:41)
[2025-03-25] MEDS: MULTIVITAMIN TAB PO SCH (08:42)
[2025-03-25] MEDS: METOPROLOL SUCC 25MG EXT REL TAB PO SCH (08:42)
--- NOTE | 2025-03-25 09:44 | Cardiology Consultation ---
Date of Consultation March 25, 2025 Assessment & Plan (1) Dizziness: (2) Hypertensive urgency: (3) Atrial fibrillation: (4) Acute heart failure with preserved ejection fraction: (5) Mitral regurgitation: (6) Aortic insufficiency: Plan Patient admitted with symptoms of visual disturbances, dizziness, SOB/chest tightness. Head and brain imaging on arrival were without acute process. EKG demonstrating afib controlled rates. No acute ischemic changes. HS troponin unremarkable x2. He was hypertensive on arrival. Also evidence of acute HFpEF with evidence of volume overload on exam and chest xray. Echo with preserved LVEF, moderate AI and severe MR - similar to past study in December 2023. Recommendations: 1. Increase IV diuretics to furosemide 40 mg daily. Give an additional 20 mg IV now to equal 40 mg this morning. 2. monitor I+O's 3. Daily weight with standing scale 4. Monitor renal function/electrolytes 5. Hopeful that BP will improve with IV diuresis. Continue metoprolol, amlodipine, terazosin, losartan. 6. Ongoing conservative therapies recommended for mod/severe valvular heart disease. 7. Given dizziness/visual disturbances, consider borderline tachybrady - outpatient ZIO monitor upon discharge to be arranged 6. Continue metoprolol and Xarelto for anticoagulation for afib. Case discussed with Dr. Mariscal. I spent a total of 60 minutes on the date of service in preparation, delivery, and documentation of the care provided to this patient, excluding any time spent in the performance of separately billed services. Zohra Rashid PA-C Department of Cardiology, [facility] This chart was completed in part utilizing Speech Voice Recognition Software. Grammatical errors, random word insertions, pronoun errors, and incomplete sentences are an occasional consequence of this system due to software limitations, ambient noise, and hardware issues. Any formal questions or concerns about the content, text, or information contained within the body of this dictation should be directly addressed to the provider for clarification. Supervising Physician Co-Signing Physician Notes I have personally performed a history and physical examination on the patient. I have reviewed the advance practitioner's documentation, and I agree with, and take responsibility for the plan of care. 59-year-old male presents with episodes of lightheadedness, dizziness, and tunnel vision. Markedly elevated blood pressure, mild acute heart failure with preserved ejection fraction on admission. Echocardiogram demonstrates severe mitral regurgitation and moderate aortic insufficiency, unchanged. Clinically improved volume status improved with 2 doses of IV Lasix. Blood pressure remains elevated. Telemetry demonstrates atrial fibrillation with heart rate in 70s to 90s since admission. No significant pauses or bradycardia. Increase daily furosemide to 40 mg. Continue telemetry monitoring. Consider titration of amlodipine to 5 mg daily if blood pressure remains elevated. I would not increase current dose of metoprolol with concerns regarding tunnel vision and possible near syncope. Outpatient ZIO monitor if telemetry unremarkable during hospitalization. Will Mariscal DO, [facility] History of Present Illness Reason for Consultation: SOB/Chest tightness; Dizziness Requesting Physician: Lorenzo Brionesist Attending Physician: Dr. Mariscal History of Present Illness Patient is a 89 year old male who presented to [facility] with complaints of dizziness, visual disturbances, and altered mental status reported by family. He also reported SOB/chest tightness at home prior to admission. Upon arrival to [facility], his BP was significantly elevated. Chest xray demonstrated mild pulm vascular congestion. Patient treated with IV lasix. EKG demonstrated afib with borderline elevated ventricular rates, incomplete RBBB and LAFB. HS troponin unremarkable x2. Due to neurologic symptoms, he underwent head CT and Brain MRI which showed no evidence of acute CVA. At time of consult, patient resting in bed. at bedside. He reports his chest tightness has resolved and his SOB/cough has improved since admission. No recurrent episodes of dizziness/tunnel vision. No headaches or vision changes. BP remains high this morning. He notes frequent urination since admission Cardiac Problems: 1. 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 Chronic Typical atrial flutter/fibrillation (diagnosed 2020; on Xarelto), [id number] (age 2, CHF, HTN, history PE/DVT) 3. HTN 4. HLD 5. Chronic venous insufficiency 6. History of deep vein thrombosis and pulmonary embolism (on Xarelto) 7. COPD 8. 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 Anemia 11. CKD stage III 12. Hypothyroidism Allergies Allergy/AdvReac Type Severity Reaction Status Date / Time Sulfa (Sulfonamide Allergy Intermediate Hives Unverified 03/24/25 17:06 Antibiotics) SIDNEY Inhibitors Allergy Mild COUGH Verified 03/24/25 17:06 Home Medications Medication Instructions Recorded Confirmed Type acetaminophen 500 mg tablet 500 mg PO AMHS 12/22/23 03/24/25 History (Tylenol Extra Strength) albuterol sulfate 90 mcg/actuation 2 puff inhalation Q6H PRN 12/22/23 03/24/25 History aerosol inhaler Shortness Of Breath Or Wheezing amlodipine 2.5 mg tablet 2.5 mg PO QAM 12/22/23 03/24/25 History atorvastatin 40 mg tablet 40 mg PO QAM 12/22/23 03/24/25 History betamethasone dipropionate 0.05 % 1 applic topical BID 12/22/23 03/24/25 History topical cream cholecalciferol (vitamin D3) 50 50 mcg PO Q OTHER DAY 12/22/23 03/24/25 History mcg (2,000 unit) tablet (Vitamin D3) finasteride 5 mg tablet 5 mg PO DAILY 12/22/23 03/24/25 History fluticasone fur. 100 mcg-umeclid 1 ea inhalation QAM 12/22/23 03/24/25 History 62.5 mcg-vilant 25 mcg inhalat.powder (Trelegy Ellipta) fluticasone propionate 50 2 spray intranasal DAILY PRN Nasal 12/22/23 03/24/25 History mcg/actuation nasal Congestion spray,suspension (Flonase Allergy Relief) furosemide 20 mg tablet (Lasix) 20 mg PO DAILY 12/22/23 03/24/25 History lanolin alcohols-mineral 1 applic topical DAILY PRN dry 12/22/23 03/24/25 History oil-w.petrolatum-ceresin topical skiin cream (Eucerin topical cream) levothyroxine 137 mcg tablet 137 mcg PO QAM 12/22/23 03/24/25 History losartan 100 mg tablet 100 mg PO DAILY 12/22/23 03/24/25 History meclizine 25 mg tablet 50 mg PO QAM 12/22/23 03/24/25 History metoprolol succinate 25 mg 37.5 mg PO QAM 12/22/23 03/24/25 History tablet,extended release 24 hr multivitamin 1 tab PO DAILY 12/22/23 03/24/25 History rivaroxaban 15 mg tablet (Xarelto) 15 mg PO QPM 12/22/23 03/24/25 History terazosin 2 mg capsule 2 mg PO QPM 12/22/23 03/24/25 History allopurinol 100 mg tablet 100 mg PO QAM 03/24/25 03/24/25 History Patient History Medical History TIA (transient ischemic attack) Psoriasis Osteoarthritis Chronic kidney disease STAGE 3 BPH (benign prostatic hyperplasia) GERD (gastroesophageal reflux disease) Hypothyroidism Anemia Hearing deficit Migraine Pulmonary embolism REASON FOR TAKING XARELTO Hyperlipidemia Sleep apnea CPAP Chronic obstructive pulmonary disease Surgical History History of open reduction and internal fixation (ORIF) procedure RT HIP History of foot surgery RT/LEFT FOOT BONE SPURS History of colonoscopy History of appendectomy History of tooth extraction Orbital fracture FX REPAIR>LEFT EYE History of cataract surgery RT/LEFT Family History (Updated 03/24/25 @ 18:53 by Greta Michel PA-C) Other Coronary heart disease Social History Smoking Status: Never smoker Second Hand Exposure: No; Do You Dip or Chew Tobacco: No; Hx Alcohol Use: No Hx Substance Use: No Preferred Language: Irish Communication Ability: Effective Sterile Products Processor Required: No Beliefs That Will Affect Care: None Current Living Situation: Spouse Other Information That Helps Us Care for You: No Feels Safe at Home: Yes Safety Concerns: Feels Safe At This Time Assistive Devices: Cane, CPAP, Glasses, Stair Lift and Walker Review of Systems Review of Systems: All systems reviewed & are unremarkable except as noted in HPI & below Physical Exam Constitutional: WD/WN, vitals as above no acute distress Neck: normal visual inspection Respiratory: + cough; no labored breathing Auscult ation: + crackles (b/l bases) Cardiovascular: Rate/Rhythm: + irregularly irregular Heart Sounds: + murmur (II/ systolic murmur) Vessels: + JVD Extremities: + edema (trace pretibial edema b/l. Chronic stasis changes) Gastrointestinal (Abdomen): normal bowel sounds, soft, nontender, no hepatosplenomegaly Neurologic: PERRL, EOMI, accommodation nl, no face palsy, no dysarthria Results & Data Vital Signs (Past 12 Hours) Vital Signs Temp Pulse Pulse Pulse Resp BP Pulse Ox 03/25/25 07:47 37.1 C 75 19 172/87 H 94 03/25/25 04:52 36.5 C 92 H 20 160/76 H 96 03/25/25 01:50 89 18 99 03/25/25 00:18 89 03/25/25 00:18 03/25/25 00:18 36.6 C 91 H 20 182/77 H 98 03/24/25 23:00 79 20 156/87 H 95 03/24/25 21:45 86 20 164/75 H 94 O2 Del Method 03/25/25 07:47 Room Air 03/25/25 04:52 Nasal CPAP 03/25/25 01:50 03/25/25 00:18 03/25/25 00:18 Room Air 03/25/25 00:18 Room Air 03/24/25 23:00 Room Air 03/24/25 21:45 Room Air Laboratory Results Cardiac Enzymes 03/24/25 03/24/25 Range/Units 16:26 19:50 AST 30 (13-39) U/L Troponin I High Sens 10.9 12.9 (0-20) pg/ml B-Natriuretic Peptide 795 H (0-100) pg/ml Coagulation 03/24/25 Range/Units 16:26 PT 11.9 (9.0-12.0) Seconds APTT 26 (21-31) Seconds B-Natriuretic Peptide 795 H (0-100) pg/ml Lipids 03/25/25 Range/Units 07:05 Triglycerides 76 (0-150) mg/dl Cholesterol 151 (0-200) mg/dl HDL Cholesterol 50 mg/dl Cholesterol/HDL Ratio 3.0 (0-5) CBC 03/24/25 03/25/25 Range/Units 16:26 07:05 WBC 6.94 6.69 (4.8-10.8) K/ul RBC 3.91 L 3.63 L (4.70-6.10) M/uL Hgb 11.3 L 10.7 L (14.0-18.0) g/dl Hct 35.4 L 32.5 L (42.0-52.0) % Plt Count 181 173 (130-400) K/uL Neut # (Auto) 4.11 (1.40-6.50) K/uL Lymph # (Auto) 1.76 (1.20-3.40) K/uL [place] # (Auto) 0.73 H (0.11-0.59) K/uL Eos # (Auto) 0.28 (0.00-0.50) K/uL Baso # (Auto) 0.03 (0.00-0.20) K/uL Comprehensive Metabolic Panel 03/24/25 03/25/25 Range/Units 16:26 07:05 Sodium 140 145 (136-145) mmol/L Potassium 4.3 4.0 (3.5-5.1) mmol/L Chloride 112 H 111 H (98-107) mmol/L Carbon Dioxide 23 28 (21-32) mmol/L BUN 32 H 31 H (6-23) mg/dl Creatinine 1.17 1.20 (0.6-1.4) mg/dl Glucose 95 86 (70-99(Fasting)) mg/dl Calcium 9.0 8.8 (8.6-10.3) mg/dl AST 30 (13-39) U/L ALT 16 (7-52) U/L Alkaline Phosphatase 69 (34-104) U/L Total Protein 7.3 (6.0-8.3) gm/dl Albumin 3.8 (3.4-5.0) gm/dl Intake and Output 03/24/25 03/25/25 03/25/25 22:59 06:59 14:59 Output Total 450 / 450 Balance -450 / -450 Output: Urine 450 / 450 Other: # Unmeasured Voids 2 Weight 79.2 kg 75.8 kg Weight Measurement Method Chair Scale Built in [facility] Diagnostic Findings Telemetry reviewed: Afib with controlled rates predominantly in the 80-90's EKG reviewed: Afib with controlled rates, incomplete RBBB, LAFB no acute ischemic changes Echo report reviewed dated today, 03/25/25: LVEF 55-60% Mild LVH LA is severely dilated Moderate AI Moderate MAC Severe MR estimated pulm pressure is 51 mmHg Chest X-Ray 03/24/25 16:18 Impression: Cardiomegaly and mild pulmonary edema Head CT 03/24/25 18:29 Impression: 1. Cerebral atrophy and chronic small vessel ischemic disease 2. Otherwise unremarkable noncontrast CT of the brain Internal Auditory Canal MRI 03/24/25 21:25 IMPRESSIONS: 1. Marginal reduction in the size of right CP angle lesion previously described as vestibular schwannoma. 2. Interval evidence of prominent diffuse leptomeningeal enhancement which is likely secondary to post radiation changes. Would recommend clinical correlation. 3. Chronic white matter ischemic changes of varying duration. [place] 3. 4. Age-appropriate advanced global involutional changes. 5. The 7th and 8th nerve complexes on left side appear normal without definite space-occupying lesion. 6. No intracerebral hemorrhage or acute infarction. Electronically signed by Lan Suh 03-25-2025 03:58 AM Prior Outpatient echo reviewed dated December 2023: Interpretation Summary The examination is adequate to evaluate the referral indication. The left ventricular cavity size is normal. The LV wall thickness is moderately increased (concentric). The left ventricular wall motion is normal. The qualitative LV ejection fraction is 55-59% (normal). The left ventricular diastolic function is moderately abnormal (grade II). Moderate to severe aortic valve regurgitation is present There is mild posterior mitral leaflet prolapse. Severe mitral regurgitation is present. The mitral regurgitation jet is posteriorly directed. Medications Administered Current Inpatient Medications Acetaminophen (Acetaminophen 325 Mg Tab) 650 mg PO Q4H PRN PRN Reason: Pain or Fever Stop: 04/24/25 00:17 Albuterol (Albuterol Hfa 8 Gm Inhaler) 2 puffs INH Q6H PRN PRN Reason: Shortness Of Breath Or Wheezin Stop: 04/24/25 00:17 Allopurinol (Allopurinol 100 Mg Tab) 100 mg PO QAM [facility] Stop: 04/24/25 08:59 Last Admin: 03/25/25 08:43 Dose: 100 mg Amlodipine Besylate (Amlodipine Besylate 5 Mg Tab) 2.5 mg PO QAM [facility] Stop: 04/24/25 08:59 Last Admin: 03/25/25 08:42 Dose: 2.5 mg Atorvastatin Calcium (Atorvastatin 40 Mg Tab) 40 mg PO QAM [facility] Stop: 04/24/25 08:59 Last Admin: 03/25/25 08:41 Dose: 40 mg Finasteride (Finasteride 5 Mg Tab) 5 mg PO DAILY [facility] Stop: 04/24/25 08:59 Last Admin: 03/25/25 08:41 Dose: 5 mg Fluticasone Furoate (Fluticasone Furoate 100mcg 14 Puffs/Inhaler) 1 puffs INH QAM [facility] Stop: 04/24/25 08:59 Last Admin: 03/25/25 08:39 Dose: 1 puffs Furosemide (Furosemide Inj 20 Mg/2 Ml Vial) 20 mg IV DAILY [facility] Stop: 04/24/25 08:59 Levothyroxine Sodium (Levothyroxine Sodium 137 Mcg Tablet) 137 mcg PO DAILYBB [facility] Stop: 04/24/25 06:29 Last Admin: 03/25/25 06:01 Dose: 137 mcg Losartan Potassium (Losartan Potassium 50 Mg Tab) 100 mg PO DAILY [facility] Stop: 04/24/25 08:59 Last Admin: 03/25/25 08:41 Dose: 100 mg Meclizine HCl (Meclizine Hcl 25 Mg Tab) 50 mg PO QAM [facility] Stop: 04/24/25 08:59 Last Admin: 03/25/25 08:41 Dose: 50 mg Metoprolol Succinate (Metoprolol Succ 25mg Ext Rel Tab) 37.5 mg PO QAM [facility] Stop: 04/24/25 08:59 Last Admin: 03/25/25 08:42 Dose: 37.5 mg Miscellaneous Information (Pharmacist Discharge Med Rec Consult) 1 each N/A UD PRN PRN Reason: Consult Stop: 04/24/25 00:17 Multivitamins (Multivitamin Tab) 1 tab PO DAILY [facility] Stop: 04/24/25 08:59 Last Admin: 03/25/25 08:42 Dose: 1 tab Ondansetron HCl (Ondansetron Inj 2 Mg/Ml 2 Ml Vial) 4 mg IV Q6H PRN PRN Reason: Nausea Stop: 04/24/25 00:17 Polyethylene Glycol (Polyethylene (Miralax) 17 Gm Pack) 17 gm PO DAILY PRN PRN Reason: Constipation Stop: 04/24/25 00:17 Rivaroxaban (Rivaroxaban 15 Mg Tab) 15 mg PO QPM [facility] Stop: 04/24/25 20:59 Terazosin HCl (Terazosin Hcl 1 Mg Cap) 2 mg PO QPM [facility] Stop: 04/24/25 20:59 Umeclidinium/Vilanterol (Umeclidinium/Vilanterol 62.5/25mcg 7 Puffs/Inhaler) 1 puffs INH QAM [facility] Stop: 04/24/25 08:59 Last Admin: 03/25/25 08:39 Dose: 1 puffs Vitamin D (Cholecalciferol 25 Mcg (1000 Units) Tab) 50 mcg PO Q2D@0900 [facility] Stop: 04/25/25 08:59 PG Care Time/CCT Total # of Minutes Spent Total Time Spent with Patient: Total time spent is greater than 50% in coordination of care (as documented) at patient's floor/unit and/or counseling patient: Coding Level of Care Code 08444 ER DEPT VISIT HIGH LVL 5 Diagnoses Dizziness R42 Hypertensive urgency I16.0 Longstanding persistent atrial fibrillation I48.11 Atrial fibrillation type: longstanding persistent Acute heart failure with preserved ejection fraction I50.31 Nonrheumatic mitral valve regurgitation I34.0 Cardiac valve disease etiology: nonrheumatic Nonrheumatic aortic valve insufficiency I35.1 Cardiac valve disease etiology: nonrheumatic (3) Atrial fibrillation Atrial fibrillation type: longstanding persistent Qualified Code(s): I48.11 - Longstanding persistent atrial fibrillation (5) Mitral regurgitation Cardiac valve disease etiology: nonrheumatic Qualified Code(s): I34.0 - Non rheumatic mitral (valve) insufficiency (6) Aortic insufficiency Cardiac valve disease etiology: nonrheumatic Qualified Code(s): I35.1 - Nonrheumatic aortic (valve) insufficiency
[2025-03-25] MEDS: FUROSEMIDE INJ 20 MG/2 ML VIAL IV SCH (11:00)
--- NOTE | 2025-03-25 11:20 | Electrocardiogram Report ---
Test Reason : Blood Pressure : */* mmHG Vent. Rate : 96 BPM Atrial Rate : * BPM P-R Int : * ms QRS Dur : 102 ms QT Int : 354 ms P-R-T Axes : * -45 84 degrees QTcB Int : 447 ms Atrial fibrillation Incomplete right bundle branch block Left anterior fascicular block Moderate voltage criteria for LVH, may be normal variant ( R in aVL ) Nonspecific ST abnormality Abnormal ECG When compared with ECG of 22-Dec-2023 20:57, Atrial fibrillation has replaced Sinus rhythm Confirmed by Esvin Figueroa ([id number]) on 03/25/2025 11:20:16 AM Referred By: REFERRED SELF Confirmed By: Esvin Figueroa
--- NOTE | 2025-03-25 12:51 | Hospitalist Progress Note ---
Date of Service March 25, 2025 Assessment & Plan (1) Dizziness: Plan: Patient is 89-year-old male with PMH HTN, dyslipidemia, CKD III, chronic HFpEF, 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, moderate persistent asthma, COPD, atrial flutter, atrial fibrillation, DVT & PE, anticoagulated on Xarelto, PVD, hypothyroidism, secondary hyperparathyroidism, BPH, history of vestibular schwannoma, general anxiety disorder, and others listed below presented to ER with c/o visual disturbance last night and today. Currently symptoms resolved. Strokelike symptoms Presented with Visual disturbance, change in mental status DDx: TIA, Stroke, migraine aura, arrhythmia, seizure -- Internal auditory canal MRI: Marginal reduction in the size of right CP angle lesion previously described as vestibular schwannoma. Interval evidence of prominent diffuse leptomeningeal enhancement which is likely secondary to post radiation changes. Would recommend clinical correlation. Chronic white matter ischemic changes of varying duration. [place] 3. Age-appropriate advanced global involutional changes. The 7th and 8th nerve complexes on left side appear normal without definite space-occupying lesion. No intracerebral hemorrhage or acute infarction. --CT head:Cerebral atrophy and chronic small vessel ischemic disease. Otherwise unremarkable noncontrast CT of the brain --EEG pending --ECHO: -- Continue Lipitor, Xarelto -- Consulted neurology: Await input --Mental status seem to be back to baseline --PT OT, speech eval --Needs ZIO monitor as outpatient (2) (HFpEF) heart failure with preserved ejection fraction: (3) Valvular heart disease: Plan: Acute on Chronic HFpEF Moderate-severe aortic regurgitation Severe mitral regurgitation --BNP: 765 --CXR: Cardiomegaly and mild pulmonary edema -- ECHO: EF 55 to 60%. Mild concentric LVH. Left atrium is severely dilated. Moderate aortic regurgitation. Moderate mitral annular calcification. Mitral valve leaflets appear thickened, but open well. Severe mitral regurgitation. Mitral regurgitant jet is posteriorly directed. Mitral regurgitant jet is eccentric and wall impinging. Mild tricuspid regurgitation. Estimated systolic pressure is 51 mmHg --Continue IV Lasix 40 mg daily --Monitor I's &O's and daily weight. Low sodium diet -- Appreciate cardiology input --Continue metoprolol, losartan Saturating well on room air (4) Atrial fibrillation: Plan: History Atrial flutter History Atrial fibrillation --Outpatient EKG on 02/10/2025 atrial fibrillation, left anterior fascicular block, 10/10/2024 EKG atrial fibrillation, nonspecific ST abnormality Anticoagulated on Xarelto Current rate controlled Continue metoprolol, Xarelto (5) CKD (chronic kidney disease), stage III: Plan: Cr: 1.17 (baseline: Cr: 1.6 on 11/12/24) Monitor renal function Avoid nephrotoxic agents when possible Creatinine 1.2 today (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 There is also decreased mass effect upon the right with brachium pontis and right cerebellar hemisphere. No acute or subacute infarct. -- MRI as above Follow-up as outpatient (7) History of pulmonary embolism: Plan: History DVT & PE Anticoagulated on Xarelto HTN Continue amlodipine, losartan, metoprolol Also on terazosin Monitor blood pressure Dyslipidemia Continue atorvastatin BPH Continue finasteride, terazosin Asthma COPD No sign acute exacerbation Continue home inhalers MARC CPAP HS Hypothyroidism TSH normal Continue levothyroxine DVT Prophylaxis On Xarelto CODE STATUS Full code Disposition PT OT prior to discharge Admission and Anticipated Discharge Date Admission Date: March 24, 2025 Subjective Patient is seen and examined at bedside Reports chronic dizziness which is unchanged Visual symptoms resolved States feeling well today Denies any chest pain, dyspnea, nausea, vomiting, abdominal pain Oriented during my encounter Review of Systems Review of Systems: All systems reviewed & are unremarkable except as noted in Subjective Physical Exam Physical Exam: Physical Exam: Vitals signs as noted above General Appearance:Moderately built and nourished, no apparent distress, elderly Head: normocephalic, Atraumatic Eyes: normal inspection, EOMI Neck: supple, Trachea midline Respiratory/Chest: Normal breath sounds, CTA, No accessory muscle use Cardiovascular: Irregularly irregular, + murmur Abdomen/GI:Soft, Non tender, Bowel sounds present Extremities/Musculoskeletal:normal inspection,+ LE venous stasis changes Neurologic/Psych:AAOX3, grossly no focal neurological deficits ,+ decreased hearing Skin: normal color, warm Results & Data Results & Data Vital Signs (Past 12 Hours) Vital Signs Temp Pulse Pulse Resp BP Pulse Ox O2 Del Method 03/25/25 12:08 36.3 C L 92 H 18 177/79 H 97 Room Air 03/25/25 07:48 Room Air 03/25/25 07:47 37.1 C 75 19 172/87 H 94 Room Air 03/25/25 07:00 68 03/25/25 04:52 36.5 C 92 H 20 160/76 H 96 Nasal CPAP 03/25/25 01:50 89 18 99 Laboratory Results Short CBC 03/24/25 03/25/25 Range/Units 16:26 07:05 WBC 6.94 6.69 (4.8-10.8) K/ul Hgb 11.3 L 10.7 L (14.0-18.0) g/dl Hct 35.4 L 32.5 L (42.0-52.0) % Plt Count 181 173 (130-400) K/uL BMP 03/24/25 03/25/25 16:26 07:05 Sodium 140 145 Potassium 4.3 4.0 Chloride 112 H 111 H Carbon Dioxide 23 28 BUN 32 H 31 H Creatinine 1.17 1.20 Glucose 95 86 Calcium 9.0 8.8 Liver Function 03/24/25 Range/Units 16:26 Total Bilirubin 0.9 (0.2-1.0) mg/dl AST 30 (13-39) U/L ALT 16 (7-52) U/L Alkaline Phosphatase 69 (34-104) U/L Albumin 3.8 (3.4-5.0) gm/dl (4) Atrial fibrillation Atrial fibrillation type: longstanding persistent Qualified Code(s): I48.11 - Longstanding persistent atrial fibrillation
[2025-03-25] MEDS: FUROSEMIDE INJ 20 MG/2 ML VIAL IV ONE (14:15)
--- NOTE | 2025-03-25 14:17 | Neurology Consultation ---
Date of Consultation March 25, 2025 Assessment & Plan (1) Stroke-like symptoms: Recommend admission for continued stroke work up to include the following: CTA head & neck Echocardiogram as part of complete stroke workup Continue frequent neurological assessments Obtain stat CT brain without contrast for any acute neurological decline Continue to monitor/control blood pressure & blood glucose Recommend keep systolic blood pressure Continue to monitor telemetry closely Recommend ZioPatch at DC if no evidence of arrhythmia during inpatient monitoring Continue to monitor renal and hepatic function, keep euvolemic Metabolic workup should include hgbA1c, fasting lipids Recommend continue full anticoagulation Continue to monitor for s/s of hemorrhage Recommend high dose statin therapy indefinitely if tolerated Ok from neurology perspective for VTE prophylaxis PT/OT/SLT to eval and treat Recommend eval for MARC and consider outpatient polysomnography Continue outpatient follow up with neurology Telehealth Consultation Telehealth Information Telehealth Information: I performed this visit using a real-time telehealth connection between my location and the patients location ([facility]). After connecting through interactive tele-video, patient was identified by name and date of and/or wristband check.Patient (or authorized healthcare volunteer patient representative) was informed that this was a telemedicine visit and it was being conducted confidentially over secure lines. My office door was closed and no one else was present in the room with me.Patient (or authorized healthcare re presentative) provided consent to proceed with the visit, expressed an understanding of privacy and security of the telemedicine visit, and gave permission to have a hospital volunteer patient representative in the room in order to assist with the visit and to conduct portions of the visit, as needed. I informed the patient (or authorized healthcare volunteer patient representative) that I reviewed their record and presented the opportunity for them to ask any questions regarding the visit today. The patient agreed to participate. History of Present Illness Reason for Consultation: Vision changes Requesting Physician: Dr Bowman Attending Physician: Thomas Bowman MD History of Present Illness 89yo male with significant past medical hx including AFIB, HFpEF, CKD, DVT/PE, HTN, hyperlipidemia, MARC and right sided vestibular schwannoma presented with report of feeling "off" was ok then sat in chair and took a nap two days ago but when he awoke he states his vision looked "wavy". Then he reports feeling well the rest of the day but awoke yesterday not feeling right again. Reported continued feeling of fatigue. He later felt chest pressure and reported his vision was "closing in" from lateral rodriguez to middle visual field as if it was tunnel vision with headache. He has undergone MRI imaging revealing no evidence of acute ischemic stroke and his schwannoma appears slightly smaller. I have performed televideo consultation, with help of RN at bedside. He has difficulty with hear at baseline. He is alert & oriented; able to answer all questions appropriately, name objects on televideo monitor, repeat phrases and perform complex/embedded commands without deficit. Neurological exam is non lateralizing/nonfocal in terms of motor strength and coordination. Reports symptoms have resolved and he is feeling at baseline. Allergies Allergy/AdvReac Type Severity Reaction Status Date / Time Sulfa (Sulfonamide Allergy Intermediate Hives Unverified 03/24/25 17:06 Antibiotics) SIDNEY Inhibitors Allergy Mild COUGH Verified 03/24/25 17:06 Home Medications Medication Instructions Recorded Confirmed Type acetaminophen 500 mg tablet 500 mg PO AMHS 12/22/23 03/24/25 History (Tylenol Extra Strength) albuterol sulfate 90 mcg/actuation 2 puff inhalation Q6H PRN 12/22/23 03/24/25 History aerosol inhaler Shortness Of Breath Or Wheezing amlodipine 2.5 mg tablet 2.5 mg PO QAM 12/22/23 03/24/25 History atorvastatin 40 mg tablet 40 mg PO QAM 12/22/23 03/24/25 History betamethasone dipropionate 0.05 % 1 applic topical BID 12/22/23 03/24/25 History topical cream cholecalciferol (vitamin D3) 50 50 mcg PO Q OTHER DAY 12/22/23 03/24/25 History mcg (2,000 unit) tablet (Vitamin D3) finasteride 5 mg tablet 5 mg PO DAILY 12/22/23 03/24/25 History fluticasone fur. 100 mcg-umeclid 1 ea inhalation QAM 12/22/23 03/24/25 History 62.5 mcg-vilant 25 mcg inhalat.powder (Trelegy Ellipta) fluticasone propionate 50 2 spray intranasal DAILY PRN Nasal 12/22/23 03/24/25 History mcg/actuation nasal Congestion spray,suspension (Flonase Allergy Relief) furosemide 20 mg tablet (Lasix) 20 mg PO DAILY 12/22/23 03/24/25 History lanolin alcohols-mineral 1 applic topical DAILY PRN dry 12/22/23 03/24/25 His tory oil-w.petrolatum-ceresin topical skiin cream (Eucerin topical cream) levothyroxine 137 mcg tablet 137 mcg PO QAM 12/22/23 03/24/25 History losartan 100 mg tablet 100 mg PO DAILY 12/22/23 03/24/25 History meclizine 25 mg tablet 50 mg PO QAM 12/22/23 03/24/25 History metoprolol succinate 25 mg 37.5 mg PO QAM 12/22/23 03/24/25 History tablet,extended release 24 hr multivitamin 1 tab PO DAILY 12/22/23 03/24/25 History rivaroxaban 15 mg tablet (Xarelto) 15 mg PO QPM 12/22/23 03/24/25 History terazosin 2 mg capsule 2 mg PO QPM 12/22/23 03/24/25 History allopurinol 100 mg tablet 100 mg PO QAM 03/24/25 03/24/25 History Patient History Medical History TIA (transient ischemic attack) Psoriasis Osteoarthritis Chronic kidney disease STAGE 3 BPH (benign prostatic hyperplasia) GERD (gastroesophageal reflux disease) Hypothyroidism Anemia Hearing deficit Migraine Pulmonary embolism REASON FOR TAKING XARELTO Hyperlipidemia Sleep apnea CPAP Chronic obstructive pulmonary disease Surgical History History of open reduction and internal fixation (ORIF) procedure RT HIP History of foot surgery RT/LEFT FOOT BONE SPURS History of colonoscopy History of appendectomy History of tooth extraction Orbital fracture FX REPAIR>LEFT EYE History of cataract surgery RT/LEFT Family History (Updated 03/24/25 @ 18:53 by Greta Michel PA-C) Other Coronary heart disease Social History Smoking Status: Never smoker Second Hand Exposure: No; Do You Dip or Chew Tobacco: No; Hx Alcohol Use: No Hx Substance Use: No Preferred Language: [place] Communication Ability: Effective Hot Frame Tender Required: No Beliefs That Will Affect Care: None Current Living Situation: Spouse Other Information That Helps Us Care for You: No Feels Safe at Home: Yes Safety Concerns: Feels Safe At This Time Assistive Devices: Cane, CPAP, Glasses, Stair Lift and Walker Physical Exam Neurological Examination: Mental Status: Awake and alert. Oriented to person, place, and time. Fluency naming repetition and comprehension appear grossly intact. Affect remains appropriate. CN testing: I: Deferred II: Reports no changes in visual acuity III/IV/: No evidence of gaze preference, hippus, nystagmus or roving eye movements V: Facial sensation reportedly grossly intact to light touch bilaterally VII: Facial movements appear without evidence of asymmetry VIII: Hearing appears grossly intact to loud voice bilaterally IX/X: Palate is unable to be accurately visualized XI: Shoulder shrug appears symmetric/ grossly intact bilaterally XII: Tongue protrudes midline without evidence of biting Motor exam: Strength appears grossly intact in all extremities Tone: Unable to accurately assess via telemedicine Sensory: Sensation is reportedly grossly intact throughout Coordination: Finger to nose and heel to sesay were intact. No apparent evidence of dysmetria or dysdiadochokinesia Reflexes: Unable to accurately assess via telemedicine Gait: Deferred Results & Data Vital Signs (Past 12 Hours) Vital Signs Temp Pulse Pulse Resp BP Pulse Ox O2 Del Method 03/25/25 12:08 36.3 C L 92 H 18 177/79 H 97 Room Air 03/25/25 07:48 Room Air 03/25/25 07:47 37.1 C 75 19 172/87 H 94 Room Air 03/25/25 07:00 68 03/25/25 04:52 36.5 C 92 H 20 160/76 H 96 Nasal CPAP Laboratory Results Abnormal lab results 03/24/25 03/25/25 Range/Units 16:26 07:05 RBC 3.91 L 3.63 L (4.70-6.10) M/uL Hgb 11.3 L 10.7 L (14.0-18.0) g/dl Hct 35.4 L 32.5 L (42.0-52.0) % MCHC 31.9 L (32.0-36.0) g/dL RDW Std Deviation 49.3 H 47.5 H (36.4-46.3) fL RDW Coeff of Jeremiah 14.9 H (11.5-14.5) % [place] # (Auto) 0.73 H (0.11-0.59) K/uL Chloride 112 H 111 H (98-107) mmol/L BUN 32 H 31 H (6-23) mg/dl BUN/Creatinine Ratio 27.4 H 25.8 H (10-20) B-Natriuretic Peptide 795 H (0-100) pg/ml Diagnostic Findings Chest X-Ray 03/24/25 16:18 Clinical History: Chest pain Technique: A frontal view of the chest was obtained Comparison is made to prior examination dated 12/22/2023 Findings: There is suspected mild pulmonary edema. The heart is enlarged. No pleural effusion or pneumothorax is seen. There is no definite pulmonary nodule. No fracture is noted. No foreign body is seen Impression: Cardiomegaly and mild pulmonary edema ACT 112: Positive. There are findings on this exam that require communication between the performing entity and the patient following Patient Test Result Information Act ([place] ACT 112) guidelines. Electronically signed by Shravan Graves 03-24-2025 6:[address] 03/24/25 18:29 Clinical History: Dizziness Technique: Axial computed tomography images were obtained of the brain without intravenous contrast. Findings: There is diffuse cerebral atrophy, within expected limits for the patient's age. Areas of decreased attenuation are seen within the periventricular white matter, likely representing chronic small vessel ischemic disease. There is no definite sign of acute or old infarction. No intracranial hemorrhage is evident. No definite mass lesion is seen on this noncontrast examination. There is no midline shift or other form of herniation. No hydrocephalus is seen. No fracture is identified. The orbits and the visualized paranasal sinuses appear unremarkable. The mastoid air cells appear clear. Impression: 1. Cerebral atrophy and chronic small vessel ischemic disease 2. Otherwise unremarkable noncontrast CT of the brain Electronically signed by Shravan Graves 03-24-2025 7:50 PM Internal Auditory Canal MRI 03/24/25 21:25 CLINICAL HISTORY: Patient states dizziness, unsteady gait. Tunnel vision and migraines. Symptoms off and on for several weeks. History of schwannoma right side, radiation in 2020. May have bumped head off floor a few weeks ago. COMPARISON: CT head of same date and MRI DOS 12/23/2023. TECHNIQUE: MRI internal auditory canal imaging was performed on a 3.0 Laura Multiplanar scanner including coronal T1W, axial T2W, axial T2W TIRM, axial SWI/spin-density, axial diffusion weighted, axial FLAIR and axial T2W SPACE acquisitions. Pre and post contrast axial T1W VIBE gradient echo images were multiplanar reformatted for interrogation on PACS system. Contrast dose: 8 ml Gadavist. FINDINGS: Limited examination due to motion blur, degrading images obscuring fine details. Within this limitation: Internal auditory canal and vestibulo-cochlear nerve complex: There is re-demonstration of abnormal signal intensity lobulated lesion within the right CP angle cistern and the internal auditory canal again now measuring approximately 1.2x1.3x1.7 cm, previously it measured about 1.4x1.4x1.8 cm. It appears isointense on T1 and heterogeneous on T2WI with intense post contrast enhancement. It is again seen abutting the cisternal portion of right 5th cranial nerve and right cerebellar tentorium. However, no significant mass effect is identified in the current examination. The left 7th and 8th nerve complexes appear normal. No obvious space-occupying lesion was seen in the left IAC or the CP angle. Left inner ear structures are normal. Bilateral trigeminal nerves appear unremarkable. Bilateral Meckel's caves appear unremarkable. Brain:Multiple discrete and confluent T2W and FLAIR hyperintensities are again seen in bilateral centrum semiovale, subcortical and deep white matter. No abnormality seen on diffusion imaging. Findings suggest microvascular ischemic changes of varying duration. Subtle signal voids on SWI are again identified in the right cerebellar hemisphere adjacent to the lesion likely representing post treatment changes and showing no significant interval change. Age-appropriate global involutional changes noted. Diffuse leptomeningeal enhancement is also identified which is likely secondary to post radiation changes. Basal ganglia, thalamic nuclei, midbrain, wolf, cerebellum and medulla oblongata return normal signals. No other signal voids on hemosensitive gradient echo sequences to prior intracranial hemorrhage or hemosiderin staining. No abnormal signal on diffusion-weighted imaging to suggest acute infarction. FLAIR images show no evidence of significant gliosis and therefore no dysmyelinating or demyelinating disease patterns are identified. No evidence of midline shift or herniation. Posterior fossa: Re-demonstration of inferior tonsilar descent of approximately 11.0 mm showing no interval change. Left cerebellopontine angle, vestibulocochlear nerve complex and internal auditory canal appears grossly unremarkable. No evidence of Chiari malformation. Vascular system: No gross vascular abnormalities. The major vessels at the skull base including the carotids and the vertebrobasilar systems demonstrate normal patent flow voids. The dural venous sinuses appear unremarkable without evidence of thrombosis. Extra-axial spaces: Within normal limits. Specifically, no abnormal intra-axial or extra-axial fluid collection such as hemorrhage noted. Globes and orbits: Bilateral orbits and optic nerves appear unremarkable. Paranasal sinuses: The paranasal sinuses appear unremarkable. A small tornwaldt cyst measuring 3.8x6.0 mm is also seen in the nasopharynx slightly towards the right side. Temporal bones, skull base and mastoids: Normal skull base. Well aerated mastoid air cells. Calvarium and scalp: No evidence of fracture. Normal marrow signals. Scalp appears unremarkable. IMPRESSIONS: 1. Marginal reduction in the size of right CP angle lesion previously described as vestibular schwannoma. 2. Interval evidence of prominent diffuse leptomeningeal enhancement which is likely secondary to post radiation changes. Would recommend clinical correlation. 3. Chronic white matter ischemic changes of varying duration. [place] 3. 4. Age-appropriate advanced global involutional changes. 5. The 7th and 8th nerve complexes on left side appear normal without definite space-occupying lesion. 6. No intracerebral hemorrhage or acute infarction. Electronically signed by Lan Suh 03-25-2025 03:58 AM Medications Administered Home Medications Medication Instructions Recorded Confirmed Last Taken acetaminophen 500 mg tablet 500 mg PO AMHS 12/22/23 03/24/25 03/24/25 (Tylenol Extra Strength) albuterol sulfate 90 mcg/actuation 2 puff inhalation Q6H PRN 12/22/23 03/24/25 Unknown aerosol inhaler Shortness Of Breath Or Wheezing amlodipine 2.5 mg tablet 2.5 mg PO QAM 12/22/23 03/24/25 03/24/25 atorvastatin 40 mg tablet 40 mg PO QAM 12/22/23 03/24/25 03/24/25 betamethasone dipropionate 0.05 % 1 applic topical BID 12/22/23 03/24/25 03/24/25 topical cream cholecalciferol (vitamin D3) 50 50 mcg PO Q OTHER DAY 12/22/23 03/24/25 Unknown mcg (2,000 unit) tablet (Vitamin D3) finasteride 5 mg tablet 5 mg PO DAILY 12/22/23 03/24/25 03/24/25 fluticasone fur. 100 mcg-umeclid 1 ea inhalation QAM 12/22/23 03/24/25 03/24/25 62.5 mcg-vilant 25 mcg inhalat.powder (Trelegy Ellipta) fluticasone propionate 50 2 spray intranasal DAILY PRN Nasal 12/22/23 03/24/25 Unknown mcg/actuation nasal Congestion spray,suspension (Flonase Allergy Relief) furosemide 20 mg tablet (Lasix) 20 mg PO DAILY 12/22/23 03/24/25 03/23/25 lanolin alcohols-mineral 1 applic topical DAILY PRN dry 12/22/23 03/24/25 Unknown oil-w.petrolatum-ceresin topical skiin cream (Eucerin topical cream) levothyroxine 137 mcg tablet 137 mcg PO QAM 12/22/23 03/24/25 03/24/25 losartan 100 mg tablet 100 mg PO DAILY 12/22/23 03/24/25 Unknown meclizine 25 mg tablet 50 mg PO QAM 12/22/23 03/24/25 03/24/25 metoprolol succinate 25 mg 37.5 mg PO QAM 12/22/23 03/24/25 03/24/25 tablet,extended release 24 hr multivitamin 1 tab PO DAILY 12/22/23 03/24/25 03/24/25 rivaroxaban 15 mg tablet (Xarelto) 15 mg PO QPM 12/22/23 03/24/25 03/23/25 terazosin 2 mg capsule 2 mg PO QPM 12/22/23 03/24/25 03/23/25 allopurinol 100 mg tablet 100 mg PO QAM 03/24/25 03/24/25 03/24/25 Active Medications Generic Name Dose Route Start Last Admin Trade Name Freq PRN Reason Stop Dose Admin Allopurinol 100 mg 03/25/25 09:00 03/25/25 08:43 Allopurinol 100 Mg Tab PO 04/24/25 08:59 100 mg QAM OSKAR Administration Amlodipine Besylate 2.5 mg 03/25/25 09:00 03/25/25 08:42 Amlodipine Besylate 5 Mg Tab PO 04/24/25 08:59 2.5 mg QAM OSKAR Administration Atorvastatin Calcium 40 mg 03/25/25 09:00 03/25/25 08:41 Atorvastatin 40 Mg Tab PO 04/24/25 08:59 40 mg QAM OSKAR Administration Finasteride 5 mg 03/25/25 09:00 03/25/25 08:41 Finasteride 5 Mg Tab PO 04/24/25 08:59 5 mg DAILY OSKAR Administration Fluticasone Furoate 1 puffs 03/25/25 09:00 03/25/25 08:39 Fluticasone Furoate 100mcg 14 Puffs/Inhaler INH 04/24/25 08:59 1 puffs QAM OSKAR Administration Levothyroxine Sodium 137 mcg 03/25/25 06:30 03/25/25 06:01 Levothyroxine Sodium 137 Mcg Tablet PO 04/24/25 06:29 137 mcg DAILYBB OSKAR Administration Losartan Potassium 100 mg 03/25/25 09:00 03/25/25 08:41 Losartan Potassium 50 Mg Tab PO 04/24/25 08:59 100 mg DAILY OSKAR Administration Meclizine HCl 50 mg 03/25/25 09:00 03/25/25 08:41 Meclizine Hcl 25 Mg Tab PO 04/24/25 08:59 50 mg QAM OSKAR Administration Metoprolol Succinate 37.5 mg 03/25/25 09:00 03/25/25 08:42 Metoprolol Succ 25mg Ext Rel Tab PO 04/24/25 08:59 37.5 mg QAM OSKAR Administration Multivitamins 1 tab 03/25/25 09:00 03/25/25 08:42 Multivitamin Tab PO 04/24/25 08:59 1 tab DAILY SOKAR Administration Umeclidinium/Vilanterol 1 puffs 03/25/25 09:00 03/25/25 08:39 Umeclidinium/Vilanterol 62.5/25mcg 7 Puffs/Inhaler INH 04/24/25 08:59 1 puffs QAM OSKAR Administration
[2025-03-25] MEDS: OPTIRAY 320 125ml IV ONE (20:50)
[2025-03-25] MEDS: RIVAROXABAN 15 MG TAB PO SCH (22:03)
[2025-03-25] MEDS: TERAZOSIN HCL 1 MG CAP PO SCH (22:03)
--- NOTE | 2025-03-25 22:47 | CT Scan Report ---
Exam(s): CTA NECK With Contrast IV Amt: 115 ml optiray 320 EXAM: CT Angiography Neck With Intravenous Contrast CLINICAL HISTORY: Reason for exam: Stroke like symptoms. TECHNIQUE: Routine carotid CT angiography protocol was performed with intravenous contrast. NASCET criteria using the distal ICAs for comparison were used for evaluation of stenoses. CTDI is 85.53 mGy and DLP is 1040.69 mGy-cm. Automated exposure control was utilized for the study. A dose lowering technique was utilized adhering to the principles of ALARA. MIP reconstructed images were created and reviewed. CONTRAST: Patient received 115 ml optiray 320 of IV contrast COMPARISON: None. FINDINGS: VASCULATURE: Right common carotid artery: Unremarkable. No occlusion or significant stenosis. No dissection. Right internal carotid artery: Unremarkable. Extracranial segment is patent with no occlusion or significant stenosis. No dissection. Right external carotid artery: Unremarkable. No occlusion. Right vertebral artery: Unremarkable. No occlusion or significant stenosis. No dissection. Left common carotid artery: Unremarkable. No occlusion or significant stenosis. No dissection. Left internal carotid artery: Unremarkable. Extracranial segment is patent with no occlusion or significant stenosis. No dissection. Left external carotid artery: Unremarkable. No occlusion. Left vertebral artery: Unremarkable. No occlusion or significant stenosis. No dissection. NECK: Bones/joints: Unremarkable. No acute fracture. Soft tissues: Prominent mediastinal lymph nodes. Prominent cervical lymph nodes. Lung apices: Clear. CAROTID STENOSIS REFERENCE USING NASCET CRITERIA: % ICA stenosis = (1 - narrowest ICA diameter/diameter of distal cervical ICA) x 100. Mild - <50% stenosis. Moderate - 50-69% stenosis. Severe - 70-94% stenosis. Near occlusion - 95-99% stenosis. Occluded - 100% stenosis. IMPRESSION: Negative CTA neck. Electronically signed by: Lissette Grimes MD 03/25/25 22:46 PM
--- NOTE | 2025-03-25 23:06 | CT Scan Report ---
Exam(s): CTA HEAD W/WO Contrast IV Amt: 115 ml optiray 320 EXAM: CT Angiography Head Without and With Intravenous Contrast CLINICAL HISTORY: Reason for exam: Stroke like symptoms. TECHNIQUE: Axial computed tomographic angiography images of the head without and with intravenous contrast. CTDI is 85.53 mGy and DLP is 1040.69 mGy-cm. Automated exposure control was utilized for the study. A dose lowering technique was utilized adhering to the principles of ALARA. MIP reconstructed images were created and reviewed. CONTRAST: Patient received 115 ml optiray 320 of IV contrast COMPARISON: No relevant prior studies available. FINDINGS: VASCULATURE: The dural venous sinuses are patent. Right internal carotid artery: No acute findings. Intracranial segment is patent with no significant stenosis. No aneurysm. Right anterior cerebral artery: Unremarkable. No occlusion or significant stenosis. No aneurysm. Right middle cerebral artery: Unremarkable. No occlusion or significant stenosis. No aneurysm. Right posterior cerebral artery: Unremarkable. No occlusion or significant stenosis. No aneurysm. Right vertebral artery: Unremarkable as visualized. Left internal carotid artery: No acute findings. Intracranial segment is patent with no significant stenosis. No aneurysm. Left anterior cerebral artery: Unremarkable. No occlusion or significant stenosis. No aneurysm. Left middle cerebral artery: Unremarkable. No occlusion or significant stenosis. No aneurysm. Left posterior cerebral artery: Unremarkable. No occlusion or significant stenosis. No aneurysm. Left vertebral artery: Unremarkable as visualized. Basilar artery: Unremarkable. No occlusion or significant stenosis. No aneurysm. HEAD: Brain: No acute findings. Mild nonspecific white matter changes. No hemorrhage. No edema. Normal enhancement. Ventricles: Mild ventriculomegaly. Bones/joints: No acute fracture. Soft tissues: Unremarkable. Sinuses: Unremarkable as visualized. No acute sinusitis. Mastoid air cells: Unremarkable as visualized. No mastoid effusion. IMPRESSION: Negative CT angiogram of the head. Electronically signed by: Lissette Grimes MD 03/25/25 23:05 PM
[2025-03-26 06:48] LABS: Hematocrit (blood only) 34.8 % (42.0-52.0); Hemoglobin 11.3 g/dl (14.0-18.0); Mean Corpuscular Hemoglobin 29.2 pg (25.0-34.0); Mean Corpuscular Volume 89.9 fL (80.0-100.0); Platelet Count 177 K/uL (130-400); RDW Standard Deviation 48.4 fL (36.4-46.3); Red Blood Count 3.87 M/uL (4.70-6.10); White Blood Count 6.64 K/ul (4.8-10.8)
[2025-03-26 07:08] LABS: Anion Gap 6.0 (3-11); Blood Urea Nitrogen 40.0 mg/dl (6-23); Calcium 8.6 mg/dl (8.6-10.3); Carbon Dioxide 28.0 mmol/L (21-32); Chloride 110.0 mmol/L (98-107); Creatinine Clr Calc Pharmacy 27.5 ml/min; Glucose 100.0 mg/dl (70-99(Fasting)); Magnesium 1.9 mg/dl (1.7-2.4); Potassium 4.2 mmol/L (3.5-5.1); Sodium 144.0 mmol/L (136-145)
[2025-03-26] MEDS: CHOLECALCIFEROL 25 MCG (1000 UNITS) TAB PO SCH (07:51)
[2025-03-26] MEDS: FUROSEMIDE INJ 20 MG/2 ML VIAL IV SCH (07:53)
--- NOTE | 2025-03-26 11:42 | Cardiology Progress Note ---
Date of Service March 26, 2025 Assessment & Plan (1) Dizziness: (2) Hypertensive urgency: (3) Atrial fibrillation: (4) Acute heart failure with preserved ejection fraction: (5) Mitral regurgitation: (6) Aortic insufficiency: Plan 03/25/25 Patient admitted with symptoms of visual disturbances, dizziness, SOB/chest tightness. Head and brain imaging on arrival were without acute process. EKG demonstrating afib controlled rates. No acute ischemic changes. HS troponin unremarkable x2. He was hypertensive on arrival. Also evidence of acute HFpEF with evidence of volume overload on exam and chest xray. Echo with preserved LVEF, moderate AI and severe MR - similar to past study in December 2023. Recommendations: 1. Increase IV diuretics to furosemide 40 mg daily. Give an additional 20 mg IV now to equal 40 mg this morning. 2. monitor I+O's 3. Daily weight with standing scale 4. Monitor renal function/electrolytes 5. Hopeful that BP will improve with IV diuresis. Continue metoprolol, amlodipine, terazosin, losartan. 6. Ongoing conservative therapies recommended for mod/severe valvular heart disease. 7. Given dizziness/visual disturbances, consider borderline tachybrady - outpatient ZIO monitor upon discharge to be arranged 6. Continue metoprolol and Xarelto for anticoagulation for afib. 03/26/25: Patient with HFpEF with moderate/severe valvular heart disease and chronic afib. Admitted with HFpEF and visual disturbances. Stroke work up negative. Improved dyspnea/chest tightness and volume status after several doses of IV lasix. Appears euvolemic. Creatinine increased this morning to 1.7. Furosemide 40 mg IV was to be given at 9:00 AM and medication held prior to this time. Unfortunately patient had already received AM dose at 7:45 AM this morning. Monitor renal function. No additional diuretics at this time. BP has improved with diuresis. Continue metoprolol, amlodipine, terazosin and losartan. Continue Xarelto for anticoagulation. Given his dizziness and symptoms upon admission, would recommend outpatient ZIO upon discharge to r/o tachybrady syndrome contributing to his symptoms. Conservative therapies preferred for severe valvular heart disease Case discussed with Dr. Morales I spent a total of 30 minutes on the date of service in preparation, delivery, and documentation of the care provided to this patient, excluding any time spent in the performance of separately billed services. Zohra Rashid PA-C Department of Cardiology, [facility] This chart was completed in part utilizing Speech Voice Recognition Software. Grammatical errors, random word insertions, pronoun errors, and incomplete sentences are an occasional consequence of this system due to software limitations, ambient noise, and hardware issues. Any formal questions or concerns about the content, text, or information contained within the body of this dictation should be directly addressed to the provider for clarification. Admission and Anticipated Discharge Date Admission Date: March 24, 2025 Supervising Physician Co-Signing Physician Notes Attending attestation: Case reviewed with the advanced practitioner. I have personally performed a history and physical examination on the patient. I have reviewed the advanced practitioner's documentation on the date of service referenced in note, and I agree with, and take responsibility for the plan of care. I spent a total of 20 minutes coordinating, documenting, and providing care for this patient excluding time spent in the performance of separately billed services or time spent by another provider. Ralf Morales, Subjective Patient resting in bed feeling much improved. SOB/chest tightness now improved. No recurrent dizziness, visual disturbances. BP also improved. No orthopnea, PND. Edema also improved. Review of Systems Review of Systems: All systems reviewed & are unremarkable except as noted in HPI & below Physical Exam Constitutional: WD/WN, vitals as above no acute distress Neck: normal visual inspection Respiratory: no labored breathing Auscultation: + diminished lung sounds; no crackles ((improved)) Cardiovascular: Rate/Rhythm: + irregularly irregular Heart Sounds: + murmur (II/ systolic murmur) Vessels: + JVD Extremities: + edema (trace pretibial edema ) Gastrointestinal (Abdomen): normal bowel sounds, soft, nontender, no hepatosplenomegaly Neurologic: PERRL, EOMI, accommodation nl, no face palsy, no dysarthria Results & Data Vital Signs (Past 12 Hours) Vital Signs Temp Pulse Pulse Resp BP BP Pulse Ox 03/26/25 11:24 36.4 C L 87 18 134/69 91 03/26/25 08:22 36.6 C 81 18 147/72 H 97 03/26/25 08:19 03/26/25 07:27 62 03/26/25 03:58 36.4 C L 85 18 161/77 H 99 03/25/25 23:53 36.7 C 78 20 161/79 H 98 O2 Del Method 03/26/25 11:24 Room Air 03/26/25 08:22 Room Air 03/26/25 08:19 Room Air 03/26/25 07:27 03/26/25 03:58 Nasal CPAP 03/25/25 23:53 Nasal CPAP Laboratory Results CBC 03/26/25 Range/Units 06:18 WBC 6.64 (4.8-10.8) K/ul RBC 3.87 L (4.70-6.10) M/uL Hgb 11.3 L (14.0-18.0) g/dl Hct 34.8 L (42.0-52.0) % Plt Count 177 (130-400) K/uL Comprehensive Metabolic Panel 03/26/25 Range/Units 06:18 Sodium 144 (136-145) mmol/L Potassium 4.2 (3.5-5.1) mmol/L Chloride 110 H (98-107) mmol/L Carbon Dioxide 28 (21-32) mmol/L BUN 40 H (6-23) mg/dl Creatinine 1.70 H D (0.6-1.4) mg/dl Glucose 100 H (70-99(Fasting)) mg/dl Calcium 8.6 (8.6-10.3) mg/dl Intake and Output 03/25/25 03/26/25 03/26/25 22:59 06:59 14:59 Intake Total 240 / 360 Balance 240 / 360 Intake: Oral 240 / 360 Other: Other Intake Source sips # Unmeasured Voids 2 2 Weight 74.9 kg Weight Measurement Method Built in [facility] Diagnostic Findings Telemetry reviewed: Chronic afib with controlled rates in the -'s Medications Administered Current Inpatient Medications Acetaminophen (Acetaminophen 325 Mg Tab) 650 mg PO Q4H PRN PRN Reason: Pain or Fever Stop: 04/24/25 00:17 Albuterol (Albuterol Hfa 8 Gm Inhaler) 2 puffs INH Q6H PRN PRN Reason: Shortness Of Breath Or Wheezin Stop: 04/24/25 00:17 Allopurinol (Allopurinol 100 Mg Tab) 100 mg PO QAM [facility] Stop: 04/24/25 08:59 Last Admin: 03/26/25 07:52 Dose: 100 mg Amlodipine Besylate (Amlodipine Besylate 5 Mg Tab) 2.5 mg PO QAM [facility] Stop: 04/24/25 08:59 Last Admin: 03/26/25 07:52 Dose: 2.5 mg Atorvastatin Calcium (Atorvastatin 40 Mg Tab) 40 mg PO QAM [facility] Stop: 04/24/25 08:59 Last Admin: 03/26/25 07:52 Dose: 40 mg Finasteride (Finasteride 5 Mg Tab) 5 mg PO DAILY [facility] Stop: 04/24/25 08:59 Last Admin: 03/26/25 07:50 Dose: 5 mg Fluticasone Furoate (Fluticasone Furoate 100mcg 14 Puffs/Inhaler) 1 puffs INH QAM [facility] Stop: 04/24/25 08:59 Last Admin: 03/26/25 07:53 Dose: 1 puffs Furosemide (Furosemide Inj 20 Mg/2 Ml Vial) 40 mg IV DAILY [facility] Stop: 04/25/25 08:59 Last Admin: 03/26/25 07:53 Dose: 40 mg Levothyroxine Sodium (Levothyroxine Sodium 137 Mcg Tablet) [facility] Stop: 04/24/25 06:29 Last Admin: 03/26/25 06:25 Dose: 137 mcg Losartan Potassium (Losartan Potassium 50 Mg Tab) 100 mg PO DAILY [facility] Stop: 04/24/25 08:59 Last Admin: 03/26/25 07:51 Dose: 100 mg Meclizine HCl (Meclizine Hcl 25 Mg Tab) 50 mg PO QAM [facility] Stop: 04/24/25 08:59 Last Admin: 03/26/25 07:51 Dose: 50 mg Metoprolol Succinate (Metoprolol Succ 25mg Ext Rel Tab) 37.5 mg PO QAM [facility] Stop: 04/24/25 08:59 Last Admin: 03/26/25 07:52 Dose: 37.5 mg Multivitamins (Multivitamin Tab) 1 tab PO DAILY [facility] Stop: 04/24/25 08:59 Last Admin: 03/26/25 07:53 Dose: 1 tab Ondansetron HCl (Ondansetron Inj 2 Mg/Ml 2 Ml Vial) 4 mg IV Q6H PRN PRN Reason: Nausea Stop: 04/24/25 00:17 Polyethylene Glycol (Polyethylene (Miralax) 17 Gm Pack) 17 gm PO DAILY PRN PRN Reason: Constipation Stop: 04/24/25 00:17 Rivaroxaban (Rivaroxaban 15 Mg Tab) 15 mg PO QPM [facility] Stop: 04/24/25 20:59 Last Admin: 03/25/25 22:03 Dose: 15 mg Terazosin HCl (Terazosin Hcl 1 Mg Cap) 2 mg PO QPM [facility] Stop: 04/24/25 20:59 Last Admin: 03/25/25 22:03 Dose: 2 mg Umeclidinium/Vilanterol (Umeclidinium/Vilanterol 62.5/25mcg 7 Puffs/Inhaler) 1 puffs INH QAM [facility] Stop: 04/24/25 08:59 Last Admin: 03/26/25 07:53 Dose: 1 puffs Vitamin D (Cholecalciferol 25 Mcg (1000 Units) Tab) 50 mcg PO Q2D@0900 [facility] Stop: 04/25/25 08:59 Last Admin: 03/26/25 07:51 Dose: 50 mcg PG Care Time/CCT Total # of Minutes Spent Total Time Spent with Patient: Total time spent is greater than 50% in coordination of care (as documented) at patient's floor/unit and/or counseling patient: 30 Coding Level of Care Code 69559 SUB INP/OBS CARE 3/50MIN History Detailed Exam Detailed Medical Decision Making High Complexity Diagnoses Dizziness R42 Hypertensive urgency I16.0 Longstanding persistent atrial fibrillation I48.11 Atrial fibrillation type: longstanding persistent Acute heart failure with preserved ejection fraction I50.31 Nonrheumatic mitral valve regurgitation I34.0 Cardiac valve disease etiology: nonrheumatic Nonrheumatic aortic valve insufficiency I35.1 Cardiac valve disease etiology: nonrheumatic Time Spent (min) 50 Comment 20 minutes spent by Tamia Rashid PA-C , 20 minutes by Aurelia Morales DO (3) Atrial fibrillation Atrial fibrillation type: longstanding persistent Qualified Code(s): I48.11 - Longstanding persistent atrial fibrillation (5) Mitral regurgitation Cardiac valve disease etiology: nonrheumatic Qualified Code(s): I34.0 - Nonrheumatic mitral (valve) insufficiency (6) Aortic insufficiency Cardiac valve disease etiology: nonrheumatic Qualified Code(s): I35.1 - Nonrheumatic aortic (valve) insufficiency
--- NOTE | 2025-03-26 15:28 | Hospitalist Progress Note ---
Date of Service March 26, 2025 Assessment & Plan (1) Dizziness: Plan: Patient is 89-year-old male with PMH HTN, dyslipidemia, CKD III, chronic HFpEF, 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, moderate persistent asthma, COPD, atrial flutter, atrial fibrillation, DVT & PE, anticoagulated on Xarelto, PVD, hypothyroidism, secondary hyperparathyroidism, BPH, history of vestibular schwannoma, general anxiety disorder, and others listed below presented to ER with c/o visual disturbance last night and today. Currently symptoms resolved. Strokelike symptoms-no CVA Presented with Visual disturbance, change in mental status DDx: TIA, Stroke, migraine aura, arrhythmia, seizure -- Internal auditory canal MRI: Marginal reduction in the size of right CP angle lesion previously described as vestibular schwannoma. Interval evidence of prominent diffuse leptomeningeal enhancement which is likely secondary to post radiation changes. Would recommend clinical correlation. Chronic white matter ischemic changes of varying duration. [place] 3. Age-appropriate advanced global involutional changes. The 7th and 8th nerve complexes on left side appear normal without definite space-occupying lesion. No intracerebral hemorrhage or acute infarction. --CT head:Cerebral atrophy and chronic small vessel ischemic disease. Otherwise unremarkable noncontrast CT of the brain --CTA of the head and neck did not show any significant stenosis --EEG pending --ECHO: BELOW -- Continue Lipitor, Xarelto -- Consulted neurology: Appreciate input and recommendation --Mental status seem to be back to baseline --PT OT, speech eval --Needs ZIO monitor as outpatient --Remains medically stable without any acute symptoms of dizziness or any other neurological symptoms --Awaiting EEG to be read and after that we will be discharged (2) (HFpEF) heart failure with preserved ejection fraction: (3) Valvular heart disease: Plan: Acute on Chronic HFpEF Moderate-severe aortic regurgitation Severe mitral regurgitation --BNP: 765 --CXR: Cardiomegaly and mild pulmonary edema -- ECHO: EF 55 to 60%. Mild concentric LVH. Left atrium is severely dilated. Moderate aortic regurgitation. Moderate mitral annular calcification. Mitral valve leaflets appear thickened, but open well. Severe mitral regurgitation. Mitral regurgitant jet is posteriorly directed. Mitral regurgitant jet is eccentric and wall impinging. Mild tricuspid regurgitation. Estimated systolic pressure is 51 mmHg --Continue IV Lasix 40 mg daily --Monitor I's &O's and daily weight. Low sodium diet -- Appreciate cardiology input and recommendation --Continue metoprolol, losartan --Will have a Zio patch as an outpatient (4) Atrial fibrillation: Plan: History Atrial flutter History Atrial fibrillation --Outpatient EKG on 02/10/2025 atrial fibrillation, left anterior fascicular block, 10/10/2024 EKG atrial fibrillation, nonspecific ST abnormality Anticoagulated on Xarelto Current rate controlled Continue metoprolol, Xarelto Rate is controlled with current medication show abnormal show on: (5) CKD (chronic kidney disease), stage III: Plan: Cr: 1.17 (baseline: Cr: 1.6 on 11/12/24) Monitor renal function Avoid nephrotoxic agents when possible Creatinine 1.2 today (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 There is also decreased mass effect upon the right with brachium pontis and right cerebellar hemisphere. No acute or subacute infarct. -- MRI as above Follow-up as outpatient (7) History of pulmonary embolism: Plan: History DVT & PE Anticoagulated on Xarelto HTN Continue amlodipine, losartan, metoprolol Also on terazosin Monitor blood pressure Dyslipidemia Continue atorvastatin BPH Continue finasteride, terazosin Asthma COPD No sign acute exacerbation Continue home inhalers MARC CPAP HS Hypothyroidism TSH normal Continue levothyroxine DVT Prophylaxis On Xarelto CODE STATUS Full code Disposition PT OT prior to discharge Admission and Anticipated Discharge Date Admission Date: March 24, 2025 Subjective 03/26/2025 The patient was seen and examined in medical telemetry unit in presence of the He has been feeling much better and denies any dizziness and/or palpitation Denies any other significant symptoms Has been ambulating in the room without any difficulties and wants to go home Review of Systems Review of Systems: All systems reviewed and are unremarkable except as noted below Physical Exam Physical Exam: Sitting at the edge of the bed without any acute distress Constitutional: well developed, well nourished, + ill appearing and average body habitus Eyes: PERRL, conjunctivae normal, anicteric sclerae ENMT: external ear and nose normal, oropharynx normal Neck: trachea midline, no thyromegaly Respiratory: no respiratory distress Auscultation: lungs clear to auscultation bilaterally Cardiovascular: Rate/Rhythm: + irregularly irregular Heart Sounds: normal S1, normal S2 and + murmur Extremities: no edema Gastrointestinal (Abdomen): Inspection/Auscultation: normal bowel sounds; abdomen not distended Percussion/Palpation: abdomen soft; abdomen nontender Neurologic: normal touch/pain/proprioception and moves all extremities; no focal motor deficits Lymphatic: no cervical or axillary lymphadenopathy Results & Data Results & Data Vital Signs (Past 12 Hours) Vital Signs Temp Pulse Pulse Resp BP BP Pulse Ox 03/26/25 14:36 81 03/26/25 11:24 36.4 C L 87 18 134/69 91 03/26/25 08:22 36.6 C 81 18 147/72 H 97 03/26/25 08:19 03/26/25 07:27 62 03/26/25 03:58 36.4 C L 85 18 161/77 H 99 O2 Del Method 03/26/25 14:36 03/26/25 11:24 Room Air 03/26/25 08:22 Room Air 03/26/25 08:19 Room Air 03/26/25 07:27 03/26/25 03:58 Nasal CPAP Laboratory Results Short CBC 03/26/25 Range/Units 06:18 WBC 6.64 (4.8-10.8) K/ul Hgb 11.3 L (14.0-18.0) g/dl Hct 34.8 L (42.0-52.0) % Plt Count 177 (130-400) K/uL BMP 03/26/25 06:18 Sodium 144 Potassium 4.2 Chloride 110 H Carbon Dioxide 28 BUN 40 H Creatinine 1.70 H D Glucose 100 H Calcium 8.6 Medications Administered Current Inpatient Medications Acetaminophen (Acetaminophen 325 Mg Tab) 650 mg PO Q4H PRN PRN Reason: Pain or Fever Stop: 04/24/25 00:17 Albuterol (Albuterol Hfa 8 Gm Inhaler) 2 puffs INH Q6H PRN PRN Reason: Shortness Of Breath Or Wheezin Stop: 04/24/25 00:17 Allopurinol (Allopurinol 100 Mg Tab) 100 mg PO QAM [facility] Stop: 04/24/25 08:59 Last Admin: 03/26/25 07:52 Dose: 100 mg Amlodipine Besylate (Amlodipine Besylate 5 Mg Tab) [facility] Stop: 04/24/25 08:59 Last Admin: 03/26/25 07:52 Dose: 2.5 mg Atorvastatin Calcium (Atorvastatin 40 Mg Tab) 40 mg PO QAM [facility] Stop: 04/24/25 08:59 Last Admin: 03/26/25 07:52 Dose: 40 mg Finasteride (Finasteride 5 Mg Tab) 5 mg PO DAILY [facility] Stop: 04/24/25 08:59 Last Admin: 03/26/25 07:50 Dose: 5 mg Fluticasone Furoate (Fluticasone Furoate 100mcg 14 Puffs/Inhaler) 1 puffs [facility] Stop: 04/24/25 08:59 Last Admin: 03/26/25 07:53 Dose: 1 puffs Furosemide (Furosemide Inj 20 Mg/2 Ml Vial) 40 mg IV DAILY [facility] Stop: 04/25/25 08:59 Last Admin: 03/26/25 07:53 Dose: 40 mg Levothyroxine Sodium (Levothyroxine Sodium 137 Mcg Tablet) 137 mcg PO DAILYBB [facility] Stop: 04/24/25 06:29 Last Admin: 03/26/25 06:25 Dose: 137 mcg Losartan Potassium (Losartan Potassium 50 Mg Tab) 100 mg PO DAILY [facility] Stop: 04/24/25 08:59 Last Admin: 03/26/25 07:51 Dose: 100 mg Meclizine HCl (Meclizine Hcl 25 Mg Tab) 50 mg [facility] Stop: 04/24/25 08:59 Last Admin: 03/26/25 07:51 Dose: 50 mg Metoprolol Succinate (Metoprolol Succ 25mg Ext Rel Tab) 37.5 mg PO QAM [facility] Stop: 04/24/25 08:59 Last Admin: 03/26/25 07:52 Dose: 37.5 mg Multivitamins (Multivitamin Tab) 1 tab PO DAILY [facility] Stop: 04/24/25 08:59 Last Admin: 03/26/25 07:53 Dose: 1 tab Ondansetron HCl (Ondansetron Inj 2 Mg/Ml 2 Ml Vial) 4 mg IV Q6H PRN PRN Reason: Nausea Stop: 04/24/25 00:17 Polyethylene Glycol (Polyethylene (Miralax) 17 Gm Pack) 17 gm PO DAILY PRN PRN Reason: Constipation Stop: 04/24/25 00:17 Rivaroxaban (Rivaroxaban 15 Mg Tab) 15 mg PO QPM [facility] Stop: 04/24/25 20:59 Last Admin: 03/25/25 22:03 Dose: 15 mg Terazosin HCl (Terazosin Hcl 1 Mg Cap) 2 mg PO QPM [facility] Stop: 04/24/25 20:59 Last Admin: 03/25/25 22:03 Dose: 2 mg Umeclidinium/Vilanterol (Umeclidinium/Vilanterol 62.5/25mcg 7 Puffs/Inhaler) 1 puffs INH QAM [facility] Stop: 04/24/25 08:59 Last Admin: 03/26/25 07:53 Dose: 1 puffs Vitamin D (Cholecalciferol 25 Mcg (1000 Units) Tab) 50 mcg PO Q2D@0900 [facility] Stop: 04/25/25 08:59 Last Admin: 03/26/25 07:51 Dose: 50 mcg (4) Atrial fibrillation Atrial fibrillation type: longstanding persistent Qualified Code(s): I48.11 - Longstanding persistent atrial fibrillation
[2025-03-27 10:23] LABS: Anion Gap 10.0 (3-11); Blood Urea Nitrogen 54.0 mg/dl (6-23); Calcium 8.2 mg/dl (8.6-10.3); Carbon Dioxide 23.0 mmol/L (21-32); Chloride 104.0 mmol/L (98-107); Creatinine Clr Calc Pharmacy 22.8 ml/min; Glucose 179.0 mg/dl (70-99(Fasting)); Magnesium 1.7 mg/dl (1.7-2.4); Potassium 4.0 mmol/L (3.5-5.1); Sodium 137.0 mmol/L (136-145)
--- NOTE | 2025-03-27 11:47 | Cardiology Progress Note ---
Date of Service March 27, 2025 Assessment & Plan (1) Dizziness: (2) Hypertensive urgency: (3) Atrial fibrillation: (4) Acute heart failure with preserved ejection fraction: (5) Mitral regurgitation: (6) Aortic insufficiency: Plan 03/25/25 Patient admitted with symptoms of visual disturbances, dizziness, SOB/chest tightness. Head and brain imaging on arrival were without acute process. EKG demonstrating afib controlled rates. No acute ischemic changes. HS troponin unremarkable x2. He was hypertensive on arrival. Also evidence of acute HFpEF with evidence of volume overload on exam and chest xray. Echo with preserved LVEF, moderate AI and severe MR - similar to past study in December 2023. Recommendations: 1. Increase IV diuretics to furosemide 40 mg daily. Give an additional 20 mg IV now to equal 40 mg this morning. 2. monitor I+O's 3. Daily weight with standing scale 4. Monitor renal function/electrolytes 5. Hopeful that BP will improve with IV diuresis. Continue metoprolol, amlodipine, terazosin, losartan. 6. Ongoing conservative therapies recommended for mod/severe valvular heart disease. 7. Given dizziness/visual disturbances, consider borderline tachybrady - outpatient ZIO monitor upon discharge to be arranged 6. Continue metoprolol and Xarelto for anticoagulation for afib. 03/26/25: Patient with HFpEF with moderate/severe valvular heart disease and chronic afib. Admitted with HFpEF and visual disturbances. Stroke work up negative. Improved dyspnea/chest tightness and volume status after several doses of IV lasix. Appears euvolemic. Creatinine increased this morning to 1.7. Furosemide 40 mg IV was to be given at 9:00 AM and medication held prior to this time. Unfortunately patient had already received AM dose at 7:45 AM this morning. Monitor renal function. No additional diuretics at this time. BP has improved with diuresis. Continue metoprolol, amlodipine, terazosin and losartan. Continue Xarelto for anticoagulation. Given his dizziness and symptoms upon admission, would recommend outpatient ZIO upon discharge to r/o tachybrady syndrome contributing to his symptoms. Conservative therapies preferred for severe valvular heart disease 03/27/25: Patient admitted with chest tightness/SOB, symptoms suggestive of acute HFpEF with severe valvular disease/pulm hypertension Treated with several doses of IV lasix, with improved symptoms. Unfortunately creatinine increased to 1.7 yesterday. Lasix placed on hold, but patient received AM dose on 03/26. Creatinine now 2.05 this morning. labs were drawn after AM meds Hold losartan. (already received dose 03/27) Continue metoprolol, amlodipine, terazosin. Given dizziness upon admission - proceed with outpatient ZIO monitor Likely will need to stay today until creatine peaks and then starts to improve. Case discussed with Dr. Morales I spent a total of 30 minutes on the date of service in preparation, delivery, and documentation of the care provided to this patient, excluding any time spent in the performance of separately billed services. Zohra Rashid PA-C Department of Cardiology, [facility] This chart was completed in part utilizing Speech Voice Recognition Software. Grammatical errors, random word insertions, pronoun errors, and incomplete sent ences are an occasional consequence of this system due to software limitations, ambient noise, and hardware issues. Any formal questions or concerns about the content, text, or information contained within the body of this dictation should be directly addressed to the provider for clarification. Admission and Anticipated Discharge Date Admission Date: March 24, 2025 Supervising Physician Co-Signing Physician Notes Attending attestation: Case reviewed with the advanced practitioner. I have personally performed a history and physical examination on the patient. I have reviewed the advanced practitioner's documentation on the date of service referenced in note, and I agree with, and take responsibility for the plan of care. Hold Losartan. Hold diuretics. I spent a total of 20 minutes coordinating, documenting, and providing care for this patient excluding time spent in the performance of separately billed services or time spent by another provider. Ralf Morales, DO Subjective Patient resting at side of bed. Taking pills at time of evaluation. Denies recurrent chest tightness or SOB. Symptoms improved since admission. No dizziess or lightheadedness. No visual disturbances. BP much improved. Labs were not completed this morning. Ordered at time of evaluation. Review of Systems Review of Systems: All systems reviewed & are unremarkable except as noted in HPI & below Physical Exam Constitutional: WD/WN, vitals as above no acute distress Neck: normal visual inspection Respiratory: no labored breathing Auscultation: + diminished lung sounds; no crackles ((improved)) and no rales Cardiovascular: Rate/Rhythm: + irregularly irregular Heart Sounds: + murmur (II/ systolic murmur) Extremities: + edema (trace pretibial edema ) Gastrointestinal (Abdomen): normal bowel sounds, soft, nontender, no hepatosplenomegaly Neurologic: PERRL, EOMI, accommodation nl, no face palsy, no dysarthria Results & Data Vital Signs (Past 12 Hours) Vital Signs Temp Pulse Resp BP BP Pulse Ox O2 Del Method 03/27/25 11:24 36.7 C 79 18 110/65 98 Room Air 03/27/25 08:23 36.6 C 80 18 130/68 98 Room Air 03/27/25 08:05 Room Air 03/27/25 03:32 36.6 C 89 20 105/69 97 Room Air Laboratory Results Comprehensive Metabolic Panel 03/27/25 Range/Units 09:41 Sodium 137 (136-145) mmol/L Potassium 4.0 (3.5-5.1) mmol/L Chloride 104 (98-107) mmol/L Carbon Dioxide 23 (21-32) mmol/L BUN 54 H (6-23) mg/dl Creatinine 2.05 H D (0.6-1.4) mg/dl Glucose 179 H (70-99(Fasting)) mg/dl Calcium 8.2 L (8.6-10.3) mg/dl Intake and Output 03/26/25 03/27/25 03/27/25 22:59 06:59 14:59 Intake Total 240 / 900 180 / 900 Balance 240 / 900 180 / 900 Intake: Oral 240 / 900 180 / 900 Other: Weight 73.8 kg Weight Measurement Method Standing Scale Standing Scale Diagnostic Findings Telemetry reviewed: chronic afib. Controlled rates Medications Administered Current Inpatient Medications Acetaminophen (Acetaminophen 325 Mg Tab) 650 mg PO Q4H PRN PRN Reason: Pain or Fever Stop: 04/24/25 00:17 Albuterol (Albuterol Hfa 8 Gm Inhaler) 2 puffs INH Q6H PRN PRN Reason: Shortness Of Breath Or Wheezin Stop: 04/24/25 00:17 Allopurinol (Allopurinol 100 Mg Tab) 100 mg PO QAM [facility] Stop: 04/24/25 08:59 Last Admin: 03/27/25 09:30 Dose: 100 mg Amlodipine Besylate (Amlodipine Besylate 5 Mg Tab) [facility] [place] Stop: 04/24/25 08:59 Last Admin: 03/27/25 09:28 Dose: 2.5 mg Atorvastatin Calcium (Atorvastatin 40 Mg Tab) 40 mg PO QAM [facility] Stop: 04/24/25 08:59 Last Admin: 03/27/25 09:29 Dose: 40 mg Finasteride (Finasteride 5 Mg Tab) 5 mg PO DAILY [facility] Stop: 04/24/25 08:59 Last Admin: 03/27/25 09:29 Dose: 5 mg Fluticasone Furoate (Fluticasone Furoate 100mcg 14 Puffs/Inhaler) 1 puffs INH QAM [facility] Stop: 04/24/25 08:59 Last Admin: 03/27/25 09:30 Dose: 1 puffs Furosemide (Furosemide Inj 20 Mg/2 Ml Vial) 40 mg IV DAILY [facility] Stop: 04/25/25 08:59 Last Admin: 03/26/25 07:53 Dose: 40 mg Levothyroxine Sodium (Levothyroxine Sodium 137 Mcg Tablet) 137 mcg PO DAILYBB [facility] Stop: 04/24/25 06:29 Last Admin: 03/27/25 05:34 Dose: 137 mcg Losartan Potassium (Losartan Potassium 50 Mg Tab) 100 mg PO DAILY [facility] Stop: 04/24/25 08:59 Last Admin: 03/27/25 09:27 Dose: 100 mg Meclizine HCl (Meclizine Hcl 25 Mg Tab) 50 mg PO QAM [facility] Stop: 04/24/25 08:59 Last Admin: 03/27/25 09:28 Dose: 50 mg Metoprolol Succinate (Metoprolol Succ 25mg Ext Rel Tab) 37.5 mg PO QAM [facility] Stop: 04/24/25 08:59 Last Admin: 03/27/25 09:28 Dose: 37.5 mg Multivitamins (Multivitamin Tab) 1 tab PO DAILY [facility] Stop: 04/24/25 08:59 Last Admin: 03/27/25 09:29 Dose: 1 tab Ondansetron HCl (Ondansetron Inj 2 Mg/Ml 2 Ml Vial) 4 mg IV Q6H PRN PRN Reason: Nausea Stop: 04/24/25 00:17 Polyethylene Glycol (Polyethylene (Miralax) 17 Gm Pack) 17 gm PO DAILY PRN PRN Reason: Constipation Stop: 04/24/25 00:17 Rivaroxaban (Rivaroxaban 15 Mg Tab) 15 mg PO QPM [facility] Stop: 04/24/25 20:59 Last Admin: 03/26/25 20:30 Dose: 15 mg Terazosin HCl (Terazosin Hcl 1 Mg Cap) 2 mg PO QPM [facility] Stop: 04/24/25 20:59 Last Admin: 03/26/25 20:30 Dose: 2 mg Umeclidinium/Vilanterol (Umeclidinium/Vilanterol 62.5/25mcg 7 Puffs/Inhaler) 1 puffs INH QAM [facility] Stop: 04/24/25 08:59 Last Admin: 03/27/25 09:30 Dose: 1 puffs Vitamin D (Cholecalciferol 25 Mcg (1000 Units) Tab) 50 mcg PO Q2D@0900 [facility] Stop: 04/25/25 08:59 Last Admin: 03/26/25 07:51 Dose: 50 mcg PG Care Time/CCT Total # of Minutes Spent Total Time Spent with Patient: Total time spent is greater than 50% in coordination of care (as documented) at patient's floor/unit and/or counseling patient: Coding Level of Care Code 19158 SUB INP/OBS CARE 3/50MIN Diagnoses Dizziness R42 Hypertensive urgency I16.0 Longstanding persistent atrial fibrillation I48.11 Atrial fibrillation type: longstanding persistent Acute heart failure with preserved ejection fraction I50.31 Nonrheumatic mitral valve regurgitation I34.0 Cardiac valve disease etiology: nonrheumatic Nonrheumatic aortic valve insufficiency I35.1 Cardiac valve disease etiology: nonrheumatic (3) Atrial fibrillation Atrial fibrillation type: longstanding persistent Qualified Code(s): I48.11 - Longstanding persistent atrial fibrillation (5) Mitral regurgitation Cardiac valve disease etiology: nonrheumatic Qualified Code(s): I34.0 - Nonrheumatic mitral (valve) insufficiency (6) Aortic insufficiency Cardiac valve disease etiology: nonrheumatic Qualified Code(s): I35.1 - Nonrheumatic aortic (valve) insufficiency
--- NOTE | 2025-03-27 13:51 | Hospitalist Progress Note ---
Date of Service March 27, 2025 Assessment & Plan (1) Dizziness: Plan: Patient is 89-year-old male with PMH HTN, dyslipidemia, CKD III, chronic HFpEF, 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, moderate persistent asthma, COPD, atrial flutter, atrial fibrillation, DVT & PE, anticoagulated on Xarelto, PVD, hypothyroidism, secondary hyperparathyroidism, BPH, history of vestibular schwannoma, general anxiety disorder, and others listed below presented to ER with c/o visual disturbance last night and today. Currently symptoms resolved. Strokelike symptoms-no CVA Presented with Visual disturbance, change in mental status DDx: TIA, Stroke, migraine aura, arrhythmia, seizure -- Internal auditory canal MRI: Marginal reduction in the size of right CP angle lesion previously described as vestibular schwannoma. Interval evidence of prominent diffuse leptomeningeal enhancement which is likely secondary to post radiation changes. Would recommend clinical correlation. Chronic white matter ischemic changes of varying duration. [place] 3. Age-appropriate advanced global involutional changes. The 7th and 8th nerve complexes on left side appear normal without definite space-occupying lesion. No intracerebral hemorrhage or acute infarction. --CT head:Cerebral atrophy and chronic small vessel ischemic disease. Otherwise unremarkable noncontrast CT of the brain --CTA of the head and neck did not show any significant stenosis --EEG pending --ECHO: BELOW -- Continue Lipitor, Xarelto -- Consulted neurology: Appreciate input and recommendation --Mental status seem to be back to baseline --PT OT, speech eval --Needs ZIO monitor as outpatient --Remains medically stable without any acute symptoms of dizziness or any other neurological symptoms --Awaiting EEG to be read and after that we will be discharged EEG is pending and no evidence of seizures or any other TIA-like symptoms (2) (HFpEF) heart failure with preserved ejection fraction: Plan: Received diuretics and creatinine went up to 1.7 with BUN 40 yesterday and this morning it was noted to be higher at 54 over/2.05 He will be staying tonight and was advised to drink more fluid Diuretics are on hold Will monitor PRP and if trending is down notes he will be going home tomorrow (3) Valvular heart disease: Plan: Acute on Chronic HFpEF Moderate-severe aortic regurgitation Severe mitral regurgitation --BNP: 765 --CXR: Cardiomegaly and mild pulmonary edema -- ECHO: EF 55 to 60%. Mild concentric LVH. Left atrium is severely dilated. Moderate aortic regurgitation. Moderate mitral annular calcification. Mitral valve leaflets appear thickened, but open well. Severe mitral regurgitation. Mitral regurgitant jet is posteriorly directed. Mitral regurgitant jet is eccentric and wall impinging. Mild tricuspid regurgitation. Estimated systolic pressure is 51 mmHg --Continue IV Lasix 40 mg daily --Monitor I's &O's and daily weight. Low sodium diet -- Appreciate cardiology input and recommendation --Continue metoprolol, losartan --Will have a Zio patch as an outpatient (4) Atrial fibrillation: Plan: History Atrial flutter History Atrial fibrillation --Outpatient EKG on 02/10/2025 atrial fibrillation, left anterior fascicular block, 10/10/2024 EKG atrial fibrillation, nonspecific ST abnormality Anticoagulated on Xarelto Current rate controlled Continue metoprolol, Xarelto Rate is controlled with current medication show abnormal show on: (5) CKD (chronic kidney disease), stage III: Plan: Cr: 1.17 (baseline: Cr: 1.6 on 11/12/24) Monitor renal function Avoid nephrotoxic agents when possible (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 There is also decreased mass effect upon the right with brachium pontis and right cerebellar hemisphere. No acute or subacute infarct. -- MRI as above Follow-up as outpatient (7) History of pulmonary embolism: Plan: History DVT & PE Anticoagulated on Xarelto HTN Continue amlodipine, losartan, metoprolol Also on terazosin Monitor blood pressure Dyslipidemia Continue atorvastatin BPH Continue finasteride, terazosin Asthma COPD No sign acute exacerbation Continue home inhalers MARC CPAP HS Hypothyroidism TSH normal Continue levothyroxine DVT Prophylaxis On Xarelto CODE STATUS Full code Disposition PT OT prior to discharge Admission and Anticipated Discharge Date Admission Date: March 24, 2025 Subjective 03/26/2025 The patient was seen and examined in medical telemetry unit in presence of the He has been feeling much better and denies any dizziness and/or palpitation Denies any other significant symptoms Has been ambulating in the room without any difficulties and wants to go home 03/27/2025 The patient was seen and examined in medical telemetry unit He has been feeling much better and wants to go home Noted to have increasing BUN and creatinine and also EEG report is not back yet He will be going home tomorrow provided renal function improves Review of Systems Review of Systems: All systems reviewed and are unremarkable except as noted below Physical Exam Physical Exam: Sitting at the edge of the bed without any acute distress Constitutional: well developed, well nourished, + ill appearing and average body habitus Eyes: PERRL, conjunctivae normal, anicteric sclerae ENMT: external ear and nose normal, oropharynx normal Neck: trachea midline, no thyromegaly Respiratory: no respiratory distress Auscultation: lungs clear to ausculta tion bilaterally Cardiovascular: Rate/Rhythm: + irregularly irregular Heart Sounds: normal S1, normal S2 and + murmur Extremities: no edema Gastrointestinal (Abdomen): Inspection/Auscultation: normal bowel sounds; abdomen not distended Percussion/Palpation: abdomen soft; abdomen nontender Neurologic: normal touch/pain/proprioception and moves all extremities; no focal motor deficits Lymphatic: no cervical or axillary lymphadenopathy Results & Data Results & Data Vital Signs (Past 12 Hours) Vital Signs Temp Pulse Resp BP BP Pulse Ox O2 Del Method 03/27/25 11:24 36.7 C 79 18 110/65 98 Room Air 03/27/25 08:23 36.6 C 80 18 130/68 98 Room Air 03/27/25 08:05 Room Air 03/27/25 03:32 36.6 C 89 20 105/69 97 Room Air Laboratory Results [facility] 03/27/25 09:41 Sodium 137 Potassium 4.0 Chloride 104 Carbon Dioxide 23 BUN 54 H Creatinine 2.05 H D Glucose 179 H Calcium 8.2 L Medications Administered Current Inpatient Medications Acetaminophen (Acetaminophen 325 Mg Tab) 650 mg PO Q4H PRN PRN Reason: Pain or Fever Stop: 04/24/25 00:17 Albuterol (Albuterol Hfa 8 Gm Inhaler) 2 puffs INH Q6H PRN PRN Reason: Shortness Of Breath Or Wheezin Stop: 04/24/25 00:17 Allopurinol (Allopurinol 100 Mg Tab) 100 mg PO QAM [facility] Stop: 04/24/25 08:59 Last Admin: 03/27/25 09:30 Dose: 100 mg Amlodipine Besylate (Amlodipine Besylate 5 Mg Tab) 2.5 mg PO QAM [facility] Stop: 04/24/25 08:59 Last Admin: 03/27/25 09:28 Dose: 2.5 mg Atorvastatin Calcium (Atorvastatin 40 Mg Tab) 40 mg PO QAM [facility] Stop: 04/24/25 08:59 Last Admin: 03/27/25 09:29 Dose: 40 mg Finasteride (Finasteride 5 Mg Tab) 5 mg PO DAILY [facility] Stop: 04/24/25 08:59 Last Admin: 03/27/25 09:29 Dose: 5 mg Fluticasone Furoate (Fluticasone Furoate 100mcg 14 Puffs/Inhaler) 1 puffs INH QAM [facility] Stop: 04/24/25 08:59 Last Admin: 03/27/25 09:30 Dose: 1 puffs Furosemide (Furosemide Inj 20 Mg/2 Ml Vial) 40 mg IV DAILY [facility] Stop: 04/25/25 08:59 Last Admin: 03/26/25 07:53 Dose: 40 mg Levothyroxine Sodium (Levothyroxine Sodium 137 Mcg Tablet) 137 mcg PO DAILYBB [facility] Stop: 04/24/25 06:29 Last Admin: 03/27/25 05:34 Dose: 137 mcg Losartan Potassium (Losartan Potassium 50 Mg Tab) 100 mg PO DAILY [facility] Stop: 04/24/25 08:59 Last Admin: 03/27/25 09:27 Dose: 100 mg Meclizine HCl (Meclizine Hcl 25 Mg Tab) 50 mg PO QAM [facility] Stop: 04/24/25 08:59 Last Admin: 03/27/25 09:28 Dose: 50 mg Metoprolol Succinate (Metoprolol Succ 25mg Ext Rel Tab) 37.5 mg PO QAM [facility] Stop: 04/24/25 08:59 Last Admin: 03/27/25 09:28 Dose: 37.5 mg Multivitamins (Multivitamin Tab) 1 tab PO DAILY [facility] Stop: 04/24/25 08:59 Last Admin: 03/27/25 09:29 Dose: 1 tab Ondansetron HCl (Ondansetron Inj 2 Mg/Ml 2 Ml Vial) 4 mg IV Q6H PRN PRN Reason: Nausea Stop: 04/24/25 00:17 Polyethylene Glycol (Polyethylene (Miralax) 17 Gm Pack) 17 gm PO DAILY PRN PRN Reason: Constipation Stop: 04/24/25 00:17 Rivaroxaban (Rivaroxaban 15 Mg Tab) 15 mg PO QPM [facility] Stop: 04/24/25 20:59 Last Admin: 03/26/25 20:30 Dose: 15 mg Terazosin HCl (Terazosin Hcl 1 Mg Cap) 2 mg PO QPM [facility] Stop: 04/24/25 20:59 Last Admin: 03/26/25 20:30 Dose: 2 mg Umeclidinium/Vilanterol (Umeclidinium/Vilanterol 62.5/25mcg 7 Puffs/Inhaler) 1 puffs INH QAM [facility] Stop: 04/24/25 08:59 Last Admin: 03/27/25 09:30 Dose: 1 puffs Vitamin D (Cholecalciferol 25 Mcg (1000 Units) Tab) 50 mcg PO Q2D@0900 [facility] Stop: 04/25/25 08:59 Last Admin: 03/26/25 07:51 Dose: 50 mcg (4) Atrial fibrillation Atrial fibrillation type: longstanding persistent Qualified Code(s): I48.11 - Longstanding persistent atrial fibrillation
[2025-03-28] MEDS: ACETAMINOPHEN 325 MG TAB PO PRN (06:23)
--- NOTE | 2025-03-28 06:27 | Electroencephalogram ---
EEG Procedure Note Date of Service March 25, 2025 Start / End Times Start Time: 608 End Time: 628 Referring Physician Greta Michel History A 89 yo M w possible seizure. EEG performed for evaluation of epileptiform acitvity. Home Medication List Medication Instructions Recorded Confirmed Type acetaminophen 500 mg tablet 500 mg PO [facility] 12/22/23 03/24/25 History (Tylenol Extra Strength) albuterol sulfate 90 mcg/actuation 2 puff inhalation Q6H PRN 12/22/23 03/24/25 History aerosol inhaler Shortness Of Breath Or Wheezing amlodipine 2.5 mg tablet 2.5 mg PO QAM 12/22/23 03/24/25 History atorvastatin 40 mg tablet 40 mg PO QAM 12/22/23 03/24/25 History betamethasone dipropionate 0.05 % 1 applic topical BID 12/22/23 03/24/25 History topical cream cholecalciferol (vitamin D3) 50 50 mcg PO Q OTHER DAY 12/22/23 03/24/25 History mcg (2,000 unit) tablet (Vitamin D3) finasteride 5 mg tablet 5 mg PO DAILY 12/22/23 03/24/25 History fluticasone fur. 100 mcg-umeclid 1 ea inhalation QAM 12/22/23 03/24/25 History 62.5 mcg-vilant 25 mcg inhalat.powder (Trelegy Ellipta) fluticasone propionate 50 2 spray intranasal DAILY PRN Nasal 12/22/23 03/24/25 History mcg/actuation nasal Congestion spray,suspension (Flonase Allergy Relief) furosemide 20 mg tablet (Lasix) 20 mg PO DAILY 12/22/23 03/24/25 History lanolin alcohols-mineral 1 applic topical DAILY PRN dry 12/22/23 03/24/25 History oil-w.petrolatum-ceresin topical skiin cream (Eucerin topical cream) levothyroxine 137 mcg tablet 137 mcg PO QAM 12/22/23 03/24/25 History losartan 100 mg tablet 100 mg PO DAILY 12/22/23 03/24/25 History meclizine 25 mg tablet 50 mg PO QAM 12/22/23 03/24/25 History metoprolol succinate 25 mg 37.5 mg PO QAM 12/22/23 03/24/25 History tablet,extended release 24 hr multivitamin 1 tab PO DAILY 12/22/23 03/24/25 History rivaroxaban 15 mg tablet (Xarelto) 15 mg PO QPM 12/22/23 03/24/25 History terazosin 2 mg capsule 2 mg PO QPM 12/22/23 03/24/25 History allopurinol 100 mg tablet 100 mg PO QAM 03/24/25 03/24/25 History Inpatient Medication List Acetaminophen (Acetaminophen 325 Mg Tab) 650 mg PO Q4H PRN PRN Reason: Pain or Fever Stop: 04/24/25 00:17 Last Admin: 03/28/25 06:23 Dose: 650 mg Documented By: TOÑA Allopurinol (Allopurinol 100 Mg Tab) 100 mg PO [facility] Stop: 04/24/25 08:59 Last Admin: 03/27/25 09:30 Dose: 100 mg Documented By: Admin: 03/26/25 07:52 Dose: 100 mg Documented By: Admin: 03/25/25 08:43 Dose: 100 mg Documented By: CODY Amlodipine Besylate (Amlodipine Besylate 5 Mg Tab) [facility] [place]: 04/24/25 08:59 Last Admin: 03/27/25 09:28 Dose: 2.5 mg Documented By: Admin: 03/26/25 07:52 Dose: 2.5 mg Documented By: Admin: 03/25/25 08:42 Dose: 2.5 mg Documented By: CODY Atorvastatin Calcium (Atorvastatin 40 Mg Tab) 40 mg PO QAM [facility] Stop: 04/24/25 08:59 Last Admin: 03/27/25 09:29 Dose: 40 mg Documented By: Admin: 03/26/25 07:52 Dose: 40 mg Documented By: Admin: 03/25/25 08:41 Dose: 40 mg Documented By: CODY Finasteride (Finasteride 5 Mg Tab) 5 mg PO DAILY [facility] Stop: 04/24/25 08:59 Last Admin: 03/27/25 09:29 Dose: 5 mg Documented By: Admin: 03/26/25 07:50 Dose: 5 mg Documented By: Admin: 03/25/25 08:41 Dose: 5 mg Documented By: CODY Fluticasone Furoate (Fluticasone Furoate 100mcg 14 Puffs/Inhaler) 1 puffs INH QAM [facility] Stop: 04/24/25 08:59 Last Admin: 03/27/25 09:30 Dose: 1 puffs Documented By: Admin: 03/26/25 07:53 Dose: 1 puffs Documented By: Admin: 03/25/25 08:39 Dose: 1 puffs Documented By: CODY Furosemide (Furosemide Inj 20 Mg/2 Ml Vial) 40 mg IV DAILY [facility] Stop: 04/25/25 08:59 Last Admin: 03/26/25 07:53 Dose: 40 mg Documented By: JUNE Levothyroxine Sodium (Levothyroxine Sodium 137 Mcg Tablet) 137 mcg PO DAILYBB [facility] Stop: 04/24/25 06:29 Last Admin: 03/28/25 06:23 Dose: 137 mcg Documented By: Admin: 03/27/25 05:34 Dose: 137 mcg Documented By: Admin: 03/26/25 06:25 Dose: 137 mcg Documented By: Admin: 03/25/25 06:01 Dose: 137 mcg Documented By: PATY Losartan Potassium (Losartan Potassium 50 Mg Tab) 100 mg PO DAILY [facility] Stop: 04/24/25 08:59 Last Admin: 03/27/25 09:27 Dose: 100 mg Documented By: Admin: 03/26/25 07:51 Dose: 100 mg Documented By: Admin: 03/25/25 08:41 Dose: 100 mg Documented By: CODY Meclizine HCl (Meclizine Hcl 25 Mg Tab) [facility] [place]: 04/24/25 08:59 Last Admin: 03/27/25 09:28 Dose: 50 mg Documented By: Admin: 03/26/25 07:51 Dose: 50 mg Documented By: Admin: 03/25/25 08:41 Dose: 50 mg Documented By: CODY Metoprolol Succinate (Metoprolol Succ 25mg Ext Rel Tab) 37.5 mg PO QAM [facility] Stop: 04/24/25 08:59 Last Admin: 03/27/25 09:28 Dose: 37.5 mg Documented By: Admin: 03/26/25 07:52 Dose: 37.5 mg Documented By: Admin: 03/25/25 08:42 Dose: 37.5 mg Documented By: CODY Multivitamins (Multivitamin Tab) 1 tab PO DAILY [facility] Stop: 04/24/25 08:59 Last Admin: 03/27/25 09:29 Dose: 1 tab Documented By: Admin: 03/26/25 07:53 Dose: 1 tab Documented By: Admin: 03/25/25 08:42 Dose: 1 tab Documented By: CODY Rivaroxaban (Rivaroxaban 15 Mg Tab) 15 mg PO QPM [facility] Stop: 04/24/25 20:59 Last Admin: 03/27/25 20:17 Dose: 15 mg Documented By: Admin: 03/26/25 20:30 Dose: 15 mg Documented By: Admin: 03/25/25 22:03 Dose: 15 mg Documented By: PATY Terazosin HCl (Terazosin Hcl 1 Mg Cap) 2 mg PO QPM [facility] Stop: 04/24/25 20:59 Last Admin: 03/27/25 20:17 Dose: 2 mg Documented By: Admin: 03/26/25 20:30 Dose: 2 mg Documented By: Admin: 03/25/25 22:03 Dose: 2 mg Documented By: PATY Umeclidinium/Vilanterol (Umeclidinium/Vilanterol 62.5/25mcg 7 Puffs/Inhaler) 1 puffs INH QAM [facility] Stop: 04/24/25 08:59 Last Admin: 03/27/25 09:30 Dose: 1 puffs Documented By: Admin: 03/26/25 07:53 Dose: 1 puffs Documented By: Admin: 03/25/25 08:39 Dose: 1 puffs Documented By: CODY Vitamin D (Cholecalciferol 25 Mcg (1000 Units) Tab) 50 mcg PO Q2D@0900 [facility] Stop: 04/25/25 08:59 Last Admin: 03/26/25 07:51 Dose: 50 mcg Documented By: JUNE Discontinued Medications Furosemide (Furosemide Inj 20 Mg/2 Ml Vial) 20 mg IV ONE ONE Stop: 03/24/25 19:55 Last Admin: 03/24/25 20:31 Dose: 20 mg Documented By: KUNAL Furosemide (Furosemide Inj 20 Mg/2 Ml Vial) 20 mg IV DAILY [facility] Stop: 04/24/25 08:59 Last Admin: 03/25/25 11:00 Dose: 20 mg Documented By: CODY Furosemide (Furosemide Inj 20 Mg/2 Ml Vial) 20 mg IV ONE ONE Stop: 03/25/25 12:32 Last Admin: 03/25/25 14:15 Dose: 20 mg Documented By: CODY Gadobutrol (Gadobutrol 65ml Vial) 8 ml IV ONCE ONE Stop: 03/24/25 22:20 Last Admin: 03/24/25 22:20 Dose: 8 ml Documented By: POOJA Ioversol (Optiray 320 125ml) 115 ml IV ONCE ONE Stop: 03/25/25 20:51 Last Admin: 03/25/25 20:50 Dose: 115 ml Documented By: RON Rivaroxaban (Rivaroxaban 15 Mg Tab) 15 mg PO ONE ONE Stop: 03/24/25 21:24 Last Admin: 03/24/25 23:06 Dose: 15 mg Documented By: KUNAL Terazosin HCl (Terazosin Hcl 1 Mg Cap) 2 mg PO NOW ONE Stop: 03/24/25 21:24 Last Admin: 03/24/25 23:06 Dose: 2 mg Documented By: KUNAL Description This is a 21 electrode EEG with a single channel dedicated to limited EKG. The electrodes were placed in accordance with the International 10-20 system. REPORT: At the onset of the EEG the patient is awake. The background is symmetric. There posterior dominant rhythm is 9 Hz. Drowsiness is characterized by increased theta activity and reduced blink rate. Photic does not induce any abnormalities. Interpretation IMPRESSION: This is a normal awake and drowsy routine EEG. There is no evidence of epileptiform activity.
[2025-03-28 07:17] LABS: Anion Gap 8.0 (3-11); Blood Urea Nitrogen 55.0 mg/dl (6-23); Calcium 8.0 mg/dl (8.6-10.3); Carbon Dioxide 24.0 mmol/L (21-32); Chloride 106.0 mmol/L (98-107); Creatinine Clr Calc Pharmacy 22.0 ml/min; Glucose 88.0 mg/dl (70-99(Fasting)); Magnesium 1.8 mg/dl (1.7-2.4); Potassium 3.8 mmol/L (3.5-5.1); Sodium 138.0 mmol/L (136-145)
[2025-03-28 07:41] VITALS: BP 135/73; PULSE 79; RESP 16; TEMP 98.4; O2SAT 97
--- NOTE | 2025-03-28 13:12 | Hospitalist Progress Note ---
Date of Service March 28, 2025 Assessment & Plan (1) Dizziness: Plan: Patient is 89-year-old male with PMH HTN, dyslipidemia, CKD III, chronic HFpEF, 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, moderate persistent asthma, COPD, atrial flutter, atrial fibrillation, DVT & PE, anticoagulated on Xarelto, PVD, hypothyroidism, secondary hyperparathyroidism, BPH, history of vestibular schwannoma, general anxiety disorder, and others listed below presented to ER with c/o visual disturbance last night and today. Currently symptoms resolved. Strokelike symptoms-no CVA Presented with Visual disturbance, change in mental status DDx: TIA, Stroke, migraine aura, arrhythmia, seizure -- Internal auditory canal MRI: Marginal reduction in the size of right CP angle lesion previously described as vestibular schwannoma. Interval evidence of prominent diffuse leptomeningeal enhancement which is likely secondary to post radiation changes. Would recommend clinical correlation. Chronic white matter ischemic changes of varying duration. [place]az[place]as 3. Age-appropriate advanced global involutional changes. The 7th and 8th nerve complexes on left side appear normal without definite space-occupying lesion. No intracerebral hemorrhage or acute infarction. --CT head:Cerebral atrophy and chronic small vessel ischemic disease. Otherwise unremarkable noncontrast CT of the brain --CTA of the head and neck did not show any significant stenosis --EEG pending --ECHO: BELOW -- Continue Lipitor, Xarelto -- Consulted neurology: Appreciate input and recommendation --Mental status seem to be back to baseline --PT OT, speech eval --Needs ZIO monitor as outpatient --Remains medically stable without any acute symptoms of dizziness or any other neurological symptoms --Awaiting EEG to be read and after that we will be discharged EEG is pending and no evidence of seizures or any other TIA-like symptoms EEG has been negative and no more neurological symptoms He does not have any orthostatic changes and he has been ambulating without any difficulties and he will be discharged home this afternoon (2) (HFpEF) heart failure with preserved ejection fraction: Plan: Received diuretics and creatinine went up to 1.7 with BUN 40 yesterday and this morning it was noted to be higher at 54 over/2.05 He will be staying tonight and was advised to drink more fluid Diuretics are on hold Will monitor PRP and if trending is down notes he will be going home tomorrow Kidney function is slightly worse but he can go home and will have it PRP done through PCP and if it is normal he can have 20 of diuretic daily (3) Valvular heart disease: Plan: Acute on Chronic HFpEF Moderate-severe aortic regurgitation Severe mitral regurgitation --BNP: 765 --CXR: Cardiomegaly and mild pulmonary edema -- ECHO: EF 55 to 60%. Mild concentric LVH. Left atrium is severely dilated. Moderate aortic regurgitation. Moderate mitral annular calcification. Mitral valve leaflets appear thickened, but open well. Severe mitral regurgitation. Mitral regurgitant jet is posteriorly directed. Mitral regurgitant jet is eccentric and wall impinging. Mild tricuspid regurgitation. Estimated systolic pressure is 51 mmHg --Continue IV Lasix 40 mg daily --Monitor I's &O's and daily weight. Low sodium diet -- Appreciate cardiology input and recommendation --Continue metoprolol, losartan --Will have a Zio patch as an outpatient (4) Atrial fibrillation: Plan: History Atrial flutter History Atrial fibrillation --Outpatient EKG on 02/10/2025 atrial fibrillation, left anterior fascicular block, 10/10/2024 EKG atrial fibrillation, nonspecific ST abnormality Anticoagulated on Xarelto Current rate controlled Continue metoprolol, Xarelto Rate is controlled with current medication show abnormal show on: (5) CKD (chronic kidney disease), stage III: Plan: Cr: 1.17 (baseline: Cr: 1.6 on 11/12/24) Monitor renal function Avoid nephrotoxic agents when possible Creatinine is slightly abnormal likely secondary to use of diuretics (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 There is also decreased mass effect upon the right with brachium pontis and right cerebellar hemisphere. No acute or subacute infarct. -- MRI as above Follow-up as outpatient (7) History of pulmonary embolism: Plan: History DVT & PE Anticoagulated on Xarelto HTN Continue amlodipine, losartan, metoprolol Also on terazosin Monitor blood pressure Dyslipidemia Continue atorvastatin BPH Continue finasteride, terazosin Asthma COPD No sign acute exacerbation Continue home inhalers MARC CPAP HS Hypothyroidism TSH normal Continue levothyroxine DVT Prophylaxis On Xarelto CODE STATUS Full code Disposition PT OT prior to discharge Admission and Anticipated Discharge Date Admission Date: March 24, 2025 Subjective 03/26/2025 The patient was seen and examined in medical telemetry unit in presence of the He has been feeling much better and denies any dizziness and/or palpitation Denies any other significant symptoms Has been ambulating in the room without any difficulties and wants to go home 03/27/2025 The patient was seen and examined in medical telemetry unit He has been feeling much better and wants to go home Noted to have increasing BUN and creatinine and also EEG report is not back yet He will be going home tomorrow provided renal function improves 03/28/2025 The patient was seen and examined in medical telemetry unit He has been feeling much better and complained of some dizziness with ambulation His orthostasis has been negative He will be discharged this afternoon Review of Systems Review of Systems: All systems reviewed and are unremarkable except as noted below Physical Exam Physical Exam: Sitting at the edge of the bed without any acute distress Constitutional: well developed, well nourished, + ill appearing and average body habitus Eyes: PERRL, conjunctivae normal, anicteric sclerae ENMT: external ear and nose normal, oropharynx normal Neck: trachea midline, no thyromegaly Respiratory: no respiratory distress Auscultation: lungs clear to auscultation bilaterally Cardiovascular: Rate/Rhythm: + irregularly irregular Heart Sounds: normal S1, normal S2 and + murmur Extremities: no edema Gastrointestinal (Abdomen): Inspection/Auscultation: normal bowel sounds; abdomen not distended Percussion/Palpation: abdomen soft; abdomen nontender Neurologic: normal touch/pain/proprioception and moves all extremities; no focal motor deficits Lymphatic: no cervical or axillary lymphadenopathy Results & Data Results & Data Vital Signs (Past 12 Hours) Vital Signs Temp Pulse Pulse Resp BP Pulse Ox O2 Del Method 03/28/25 07:40 36.9 C 79 16 135/73 97 Room Air 03/28/25 07:32 90 03/28/25 03:52 36.8 C 68 20 128/72 95 Room Air, CPAP Laboratory Results [facility] 03/28/25 05:51 Sodium 138 Potassium 3.8 Chloride 106 Carbon Dioxide 24 BUN 55 H Creatinine 2.13 H Glucose 88 Calcium 8.0 L Medications Administered Current Inpatient Medications Acetaminophen (Acetaminophen 325 Mg Tab) 650 mg PO Q4H PRN PRN Reason: Pain or Fever Stop: 04/24/25 00:17 Last Admin: 03/28/25 06:23 Dose: 650 mg Albuterol (Albuterol Hfa 8 Gm Inhaler) 2 puffs INH Q6H PRN PRN Reason: Shortness Of Breath Or Wheezin Stop: 04/24/25 00:17 Allopurinol (Allopurinol 100 Mg Tab) [facility] [place]: 04/24/25 08:59 Last Admin: 03/28/25 08:35 Dose: 100 mg Amlodipine Besylate (Amlodipine Besylate 5 Mg Tab) 2.5 mg [facility] [place] Stop: 04/24/25 08:59 Last Admin: 03/28/25 08:34 Dose: 2.5 mg Atorvastatin Calcium (Atorvastatin 40 Mg Tab) 40 mg PO QAM [facility] Stop: 04/24/25 08:59 Last Admin: 03/28/25 08:33 Dose: 40 mg Finasteride (Finasteride 5 Mg Tab) 5 mg PO DAILY [facility] Stop: 04/24/25 08:59 Last Admin: 03/28/25 08:34 Dose: 5 mg Fluticasone Furoate (Fluticasone Furoate 100mcg 14 Puffs/Inhaler) 1 puffs [facility] [place]: 04/24/25 08:59 Last Admin: 03/28/25 08:35 Dose: 1 puffs Furosemide (Furosemide Inj 20 Mg/2 Ml Vial) 40 mg IV DAILY [facility] Stop: 04/25/25 08:59 Last Admin: 03/26/25 07:53 Dose: 40 mg Levothyroxine Sodium (Levothyroxine Sodium 137 Mcg Tablet) [facility] Stop: 04/24/25 06:29 Last Admin: 03/28/25 06:23 Dose: 137 mcg Losartan Potassium (Losartan Potassium 50 Mg Tab) 100 mg PO DAILY [facility] Stop: 04/24/25 08:59 Last Admin: 03/27/25 09:27 Dose: 100 mg Meclizine HCl (Meclizine Hcl 25 Mg Tab) 50 [facility] [place] Stop: 04/24/25 08:59 Last Admin: 03/28/25 08:33 Dose: 50 mg Metoprolol Succinate (Metoprolol Succ 25mg Ext Rel Tab) 37.5 mg [facility] [place] Stop: 04/24/25 08:59 Last Admin: 03/28/25 08:34 Dose: 37.5 mg Multivitamins (Multivitamin Tab) 1 tab PO DAILY [facility] Stop: 04/24/25 08:59 Last Admin: 03/28/25 08:35 Dose: 1 tab Ondansetron HCl (Ondansetron Inj 2 Mg/Ml 2 Ml Vial) 4 mg IV Q6H PRN PRN Reason: Nausea Stop: 04/24/25 00:17 Polyethylene Glycol (Polyethylene (Miralax) 17 Gm Pack) 17 gm PO DAILY PRN PRN Reason: Constipation Stop: 04/24/25 00:17 Rivaroxaban (Rivaroxaban 15 Mg Tab) 15 mg PO QPM [facility] Stop: 04/24/25 20:59 Last Admin: 03/27/25 20:17 Dose: 15 mg Terazosin HCl (Terazosin Hcl 1 Mg Cap) 2 mg PO QPM [facility] Stop: 04/24/25 20:59 Last Admin: 03/27/25 20:17 Dose: 2 mg Umeclidinium/Vilanterol (Umeclidinium/Vilanterol 62.5/25mcg 7 Puffs/Inhaler) 1 puffs INH QAM [facility] Stop: 04/24/25 08:59 Last Admin: 03/28/25 08:36 Dose: 1 puffs Vitamin D (Cholecalciferol 25 Mcg (1000 Units) Tab) 50 mcg PO Q2D@0900 [facility] Stop: 04/25/25 08:59 Last Admin: 03/28/25 08:33 Dose: 50 mcg (4) Atrial fibrillation Atrial fibrillation type: longstanding persistent Qualified Code(s): I48.11 - Longstanding persistent atrial fibrillation
== END 2025-03-28 14:10 | disposition home or self-care (01) | DRG 291 ==
LOC: ED 16:13 → SUATTDRO 19:53 → 2N 19:53